=== PATIENT | female | born 1940 | race Hispanic/Latino ===

== ENCOUNTER 2017-06-11 14:41 | Emergency (ER) | payer MEDICARE, OTHER ==
[2017-06-11 14:41] VITALS: BMI 22.3
[2017-06-11 15:10] VITALS: RESP 19; TEMP 97.4
--- NOTE | 2017-06-11 15:20 | ED PDOC ---
Arrival/HPI - General Chief Complaint: Fever Time Seen by Provider: 06/11/17 14:42 Historian: Patient, Caregiver - History of Present Illness Narrative History of Present Illness (Text): 06/11/17 15:15 A 76 year old female was brought into the emergency department by EMS accompanied by home health aid complaining of a low grade fever since this morning. Home health aid reports a temperature of 100.2. She notes a worsening cough over the past 3 days. Patient denies any pain or discomfort at this time. Patient denies any nausea, vomiting, abdominal pain, urinary symptoms, chest pain, shortness of breath, lower extremity pain or swelling, headache, dizziness , vision changes or any other complaints. Time/Duration: Other (fever x morning, cough x 3 days ) Symptom Course: Worsening Context: Home Past Medical History - Provider Review Nursing Documentation Reviewed: Yes - Infectious Disease Hx of Infectious Diseases: None - Tetanus Immunization Tetanus Immunization: Unknown - Cardiac Hx Cardiac Disorders: Yes Hx Cardiac Arrhythmia: Yes (afib) Hx Congestive Heart Failure: Yes Hx Hypertension: Yes - Pulmonary Hx Respiratory Disorders: Yes Hx Pneumonia: Yes - Neurological Hx Neurological Disorder: Yes HX Cerebrovascular Accident: Yes (left side flaccid) - HEENT Hx HEENT Disorder: No - Renal Hx Renal Disorder: No - Endocrine/Metabolic Hx Endocrine Disorders: No - Hematological/Oncological Hx Blood Disorders: Yes Hx Anemia: Yes Hx Hepatitis C: Yes - Integumentary Hx Dermatological Disorder: No - Musculoskeletal/Rheumatological Hx Falls: Yes - Gastrointestinal Hx Gastrointestinal Disorders: Yes Hx Diverticulitis: Yes - Genitourinary/Gynecological Hx Genitourinary Disorders: Yes Hx Urinary Tract Infection: Yes (chronic sy) - Psychiatric Hx Psychophysiologic Disorder: No Hx Substance Use: No - Past Surgical History Past Surgical History: Non-Contributing - Surgical History Hx Appendectomy: Yes Hx Cardiac Catheterization: Yes Hx Coronary Stent: Yes Hx Orthopedic Surgery: Yes ("right hip hemiarthroplasty") - Anesthesia Hx Anesthesia Reactions: No Hx Malignant Hyperthermia: No - Suicidal Assessment Feels Threatened In Home Enviroment: No Family/Social History - Physician Review Nursing Documentation Reviewed: Yes Family/Social History: No Known Family HX Smoking Status: Never Smoked Hx Alcohol Use: No Hx Substance Use: No Hx Substance Use Treatment: No Allergies/Home Meds Allergies/Adverse Reactions: Allergies Penicillins Adverse Reaction (Verified 06/11/17 14:52) RASH Home Medications: Home Meds Medication Instructions Recorded Confirmed Gabapentin [Neurontin] 300 mg PO TID 04/18/16 06/11/17 traZODone [Desyrel] 50 mg PO HS 04/18/16 06/11/17 Zolpidem [Ambien] 10 mg PO HS PRN 06/19/16 06/11/17 amLODIPine [Norvasc] 10 mg PO DAILY 06/19/16 06/11/17 Cozaar 50 mg PO DAILY 06/11/17 06/11/17 Oxycodone HCl [Oxycodone HCl ER] 30 mg PO Q4 PRN 06/11/17 06/11/17 Vitamin B Complex [Balance B-100] 1 tab PO DAILY 06/11/17 06/11/17 Warfarin [Coumadin] 4 mg PO 1800 06/11/17 06/11/17 Review of Systems - Physician Review All systems were reviewed & negative as marked: Yes - Review of Systems Constitutional: Fevers Eyes: absent: Vision Changes Respiratory: Cough. absent: SOB Cardiovascular: absent: Chest Pain Gastrointestinal: absent: Abdominal Pain, Nausea, Vomiting Genitourinary Female: absent: Dysuria, Frequency, Hematuria, Urine Output Changes Musculoskeletal: absent: Other (LE pain or swelling) Neurological: absent: Headache, Dizziness Physical Exam Vital Signs Reviewed: Yes Vital Signs Temp Pulse Resp BP Pulse Ox 06/11/17 14:59 97.4 F L 72 19 179/80 H 97 Temperature: Afebrile Blood Pressure: Hypertensive Pulse: Regular Respiratory Rate: Normal Appearance: Positive for: Well-Appearing, Non-Toxic, Comfortable Pain Distress: None Mental Status: Positive for: other (Alert and oriented times person and place) - Systems Exam Head: Present: Atraumatic, Normocephalic Pupils: Present: PERRL Conjunctiva: Present: Normal Mouth: Present: Moist Mucous Membranes Pharnyx: No: ERYTHEMA, EXUDATE, TONSILS ENLARGED Neck: Present: Normal Range of Motion Respiratory/Chest: Present: Good Air Exchange, Rhonchi (Mild rhonchi in left base). No: Respiratory Distress, Accessory Muscle Use Cardiovascular: Present: Regular Rate and Rhythm, Normal S1, S2. No: Murmurs Abdomen: Present: Normal Bowel Sounds. No: Tenderness, Distention, Peritoneal Signs Back: Present: Normal Inspection Upper Extremity: Present: Normal Inspection, Other (Left sided weakness, normal to baseline ). No: Cyanosis, Edema Lower Extremity: Present: Edema (Edema in left foot), NORMAL PULSES, Other ( Left sided weakness, normal to baseline ). No: CALF TENDERNESS Neurological: Present: GCS=15, CN II-XII Intact, Speech Normal Skin: Present: Warm, Dry, Normal Color. No: Rashes Psychiatric: Present: Alert. No: Oriented x 3 (Oriented times person and place , not time) Medical Decision Making ED Course and Treatment: 06/11/17 15:15 Impression: A 76 year old female with 100.2 oral temp this morning and worsening cough over the past 3 days. Plan: -- Chest xray -- EKG -- Labs -- Blood and Urine culture -- Urinalysis -- Robitussin and Xopenex -- Reassess and disposition Progress Notes: EKG shows NSR at 77 BPM with normal intervals, LAD, no ST/T changes. Interpreted by me. 06/11/17 17:23 Patient is afebrile here without complaints. EKG is normal and labs are unremarkable as is CXR. Vitals are unremarkable as well. She is already on promethazine and albuterol at home. Will d/c on levaquin po for bronchitis and several days of prednisone. Discussed with Dr. Forte, who agreed with discharge and said he will follow her at home, especially the INR, given the possible interaction. 06/11/17 17:40 Discharge medications transmitted to pharmacy via computer. - Lab Interpretations Lab Results: 06/11/17 15:20 06/11/17 15:20 Lab Results 06/11/17 15:20: Sodium 144, Chloride 106, Potassium 3.6, Carbon Dioxide 26, Anion Gap 16, BUN 15, Creatinine 0.7, Est GFR ( Amer) > 60, Est GFR (Non- Af Amer) > 60, Random Glucose 121 H, Calcium 8.6, Phosphorus 3.0, Magnesium 1.7 , Total Bilirubin 0.7, AST 56 H, ALT 53, Alkaline Phosphatase 81, Lactate Dehydrogenase 481, Total Creatine Kinase 29 L, Troponin I 0.02 D, Total Protein 7.0, Albumin 3.8, Globulin 3.3, Albumin/Globulin Ratio 1.2, Lipase 110 06/11/17 15:20: pO2 93 H, VBG pH 7.35, VBG pCO2 53.0, VBG HCO3 29.3 H, VBG Total CO2 30.9 H, VBG O2 Sat (Calc) 98.2 H, VBG Base Excess 2.5 H, VBG Potassium 3.6, Sodium 143.0, Chloride 108.0 H, Glucose 123 H, Lactate 1.8, FiO2 21.0, Venous Blood Potassium 3.6 06/11/17 15:20: PT 23.6 H, INR 2.19 H, APTT 33.9 H 06/11/17 15:20: WBC 4.4 L D, RBC 3.82, Hgb 11.4 L, Hct 34.9 L, MCV 91.4, MCH 29.8, MCHC 32.7, RDW 13.4, Plt Count 66 L, MPV 8.9, Gran % 70.6 H, Lymph % (Auto ) 19.9 L, [place] % (Auto) 8.6 H, Eos % (Auto) 0.7 L, Baso % (Auto) 0.2, Gran # 3.12, Lymph # 0.9 L, [place] # 0.4, Eos # 0.0, Baso # 0.01 I have reviewed the lab results: Yes - RAD Interpretation Radiology Orders: 06/11/17 15:16 CHEST ONE VIEW [RAD] Stat - Medication Orders Current Medication Orders: Levofloxacin/Dextrose (Levaquin 500mg) 500 mg in 100 mls @ 100 mls/hr IVPB STAT STA Stop: 06/11/17 18:05 Discontinued Medications Guaifenesin (Robitussin) 400 mg PO ONCE STA Stop: 06/11/17 15:18 Last Admin: 06/11/17 15:50 Dose: 400 mg Levalbuterol HCl (Xopenex) 1.25 mg IH STAT STA Stop: 06/11/17 15:18 Last Admin: 06/11/17 15:51 Dose: 1.25 mg - Scribe Statement The provider has reviewed the documentation as recorded by the Scribe Disposition/Present on Arrival - Present on Arrival Any Indicators Present on Arrival: Yes History of DVT/PE: Yes History of Uncontrolled Diabetes: No Urinary Catheter: Yes History of Decub. Ulcer: No History Surgical Site Infection Following: None - Disposition Have Diagnosis and Disposition been Completed?: Yes Diagnosis: Bronchitis Disposition: HOME/ ROUTINE Disposition Time: 17:30 Patient Plan: Discharge Patient Problems: Current Active Problems Problem Status Onset Bronchitis Acute Condition: GOOD Additional Instructions: Continue promethazine (or use Robitussin instead) as well as nebulizer with albuterol. Take the prednisone and antibiotics as prescribed. Dr. Forte will follow up at home. Return to the emergency department if any new concerning symptoms. Prescriptions: Levofloxacin [Levaquin] 1 tab PO DAILY #10 tablet predniSONE [Prednisone] 2 tab PO DAILY #8 tab Referrals: Albin Forte MD [Primary Care Provider] - Follow up with primary Forms: [employer] (Setswana)
[2017-06-11] MEDS: guaiFENesin 200 mg/10 ml Syrup UD PO STA (15:50)
[2017-06-11 15:51] LABS: VENOUS BLOOD GAS BASE EXCESS 2.5 mmol/L (0.0-2.0); VENOUS BLOOD PH 7.35 (7.32-7.43)
[2017-06-11] MEDS: Levalbuterol 1.25 MG/3 ML Inhal Soln UD IH STA (15:51)
[2017-06-11 15:53] LABS: BASO # 0.01 K/mm3 (0.0-2.0); BASO % 0.2 % (0.0-3.0); EOS % 0.7 % (1.5-5.0); GRAN # 3.12 (1.4-6.5); GRAN % 70.6 % (50.0-68.0); HEMATOCRIT 34.9 % (36.0-48.0); LYMPH # 0.9 (1.2-3.4); LYMPH % 19.9 % (22.0-35.0); MEAN CELL VOLUME 91.4 fl (80.0-105.0); MEAN CORPUSCULAR HEMOGLOBIN 29.8 pg (25.0-35.0); MEAN CORPUSCULAR HGB CONC 32.7 g/dl (31.0-37.0); MEAN PLATELET VOLUME 8.9 fl (7.0-11.0); MONO # 0.4 (0.1-0.6); MONO % 8.6 % (1.0-6.0); RED CELL DISTRIBUTION WIDTH 13.4 % (11.5-14.5); WHITE BLOOD COUNT 4.4 10^3/ul (4.5-11.0)
[2017-06-11 16:00] LABS: ALB/GLOB RATIO 1.2 (1.1-1.8); ALKALINE PHOSPHATASE 81 U/L (38-133); ALT/SGPT 53 U/L (7-56); AST/SGOT 56 U/L (15-39); BILIRUBIN,TOTAL 0.7 mg/dL (0.2-1.3); BLOOD UREA NITROGEN 15 mg/dL (7-21); CALCIUM 8.6 mg/dL (8.4-10.5); CARBON DIOXIDE 26 mmol/L (21-33); CHLORIDE 106 mmol/L (98-107); GFR AFRICAN-AMERICAN > 60; GLUCOSE,RANDOM 121 mg/dL (70-110); LIPASE 110 U/L (23-300); MAGNESIUM 1.7 mg/dL (1.7-2.2); POTASSIUM 3.6 mmol/L (3.6-5.0); SODIUM 144 mmol/L (132-148)
[2017-06-11 16:03] LABS: INR 2.19 (0.93-1.08); PARTIAL THROMBOPLASTIN TIME 33.9 Seconds (23.7-30.8)
[2017-06-11 16:11] LABS: TROPONIN I 0.02 ng/mL
[2017-06-11 17:29] LABS: URINE BILIRUBIN NEGATIVE (NEGATIVE); URINE BLOOD TRACE-LYSED (NEGATIVE); URINE GLUCOSE (UA) NEGATIVE (NEGATIVE); URINE KETONE NEGATIVE (NEGATIVE); URINE LEUKOCYTE ESTERASE MODERATE Leu/uL (NEGATIVE); URINE PROTEIN TRACE mg/dL (<30 mg/dL); URINE UROBILINOGEN 0.2 E.U./dL (<1 E.U./dL)
[2017-06-11 17:38] LABS: URINE APPEARANCE CLEAR (CLEAR); URINE COLOR YELLOW (YELLOW)
[2017-06-11 17:48] LABS: URINE BACTERIA MOD (NEG)
[2017-06-11 17:49] LABS: URINE AMORPHOUS SEDIMENT SMALL
[2017-06-11] MEDS: levoFLOXacin 500 mg in D5W 500 MG/100 ML BAG IVPB STA (17:57)
[2017-06-11 18:58] VITALS: BP 193/103
[2017-06-11 18:59] VITALS: PULSE 76; O2SAT 95
--- NOTE | 2017-06-12 08:30 | RAD ---
PROCEDURE: CHEST RADIOGRAPH, 1 VIEW HISTORY: cough COMPARISON: 09/10/2016 FINDINGS: LUNGS: Clear. PLEURA: No pneumothorax or pleural fluid seen. CARDIOVASCULAR: Aortic stent unchanged. Bilateral calcified breast augmentation prostheses. OSSEOUS STRUCTURES: No significant abnormalities. VISUALIZED UPPER ABDOMEN: Normal. OTHER FINDINGS: None. IMPRESSION: No active disease.
--- NOTE | 2017-06-12 09:48 | CARD ---
APPROVED REPORT EKG Measurement Heart [id number] <Conclusion> Normal sinus rhythm Normal ECG
== END 2017-06-11 18:58 | disposition home or self-care (01) ==
LOC: ED 14:41
DX: J40 Bronchitis, not specified as acute or chronic (principal); I11.0 Hypertensive heart disease with heart failure; I50.9 Heart failure, unspecified; I48.91 Unspecified atrial fibrillation; D64.9 Anemia, unspecified
CPT/HCPCS: 71010; 80053; 81001; 82550; 82803; 83615; 83690; 83735; 84100; 84484; 85025; 85610; 85730; 87040; 87086; 93005; 96365; 96375; 99284; J2930

== ENCOUNTER 2017-09-28 21:04 | Inpatient (IN) | payer MEDICARE, OTHER ==
[2017-09-28 21:18] VITALS: BMI 22.8
--- NOTE | 2017-09-28 22:07 | ED PDOC ---
Arrival/HPI - General Chief Complaint: Female Genitourinary Time Seen by Provider: 09/28/17 21:06 Historian: Patient, Other (daughter) - History of Present Illness Narrative History of Present Illness (Text): 09/28/17 22:06 A 76 year old female, whose past medical history includes CVA, atrial fibrillation, seizure disorder, aortic aneurysm s/p stent, CHF, hypertension, anemia and COPD, presents to the emergency department for evaluation of fever that started today, associated with some vomiting and diarrhea according to daughter. Patient also complaining of vague abdominal discomfort and bloating. Patient denies any chest pain, shortness of breath or any other complaints at this time. Symptom Onset: Sudden Symptom Course: Unchanged Activities at Onset: Rest Context: Home Associated Symptoms (Text): diarrhea, vomiting, abdominal discomfort and bloating Past Medical History - Provider Review Nursing Documentation Reviewed: Yes - Infectious Disease Hx of Infectious Diseases: None - Tetanus Immunization Tetanus Immunization: Unknown - Cardiac Hx Cardiac Disorders: Yes Hx Cardiac Arrhythmia: Yes (afib) Hx Congestive Heart Failure: Yes Hx Hypertension: Yes - Pulmonary Hx Respiratory Disorders: Yes Hx Pneumonia: Yes - Neurological Hx Neurological Disorder: Yes HX Cerebrovascular Accident: Yes (left side flaccid) Hx Paralysis: Yes (L sided) - HEENT Hx HEENT Disorder: No - Renal Hx Renal Disorder: No - Endocrine/Metabolic Hx Endocrine Disorders: No - Hematological/Oncological Hx Blood Disorders: Yes Hx Anemia: Yes Hx Hepatitis C: Yes - Integumentary Hx Dermatological Disorder: No - Musculoskeletal/Rheumatological Hx Musculoskeletal Disorders: Yes Hx Falls: Yes - Gastrointestinal Hx Gastrointestinal Disorders: Yes Hx Diverticulitis: Yes - Genitourinary/Gynecological Hx Genitourinary Disorders: Yes Hx Urinary Tract Infection: Yes (chronic sy) - Psychiatric Hx Psychophysiologic Disorder: No Hx Substance Use: No - Past Surgical History Past Surgical History: Non-Contributing - Surgical History Hx Appendectomy: Yes Hx Cardiac Catheterization: Yes Hx Coronary Stent: Yes Hx Orthopedic Surgery: Yes ("right hip hemiarthroplasty") - Anesthesia Hx Anesthesia: Yes Hx Anesthesia Reactions: No Hx Malignant Hyperthermia: No - Suicidal Assessment Feels Threatened In Home Enviroment: No Family/Social History - Physician Review Nursing Documentation Reviewed: Yes Family/Social History: No Known Family HX Smoking Status: Never Smoked Hx Alcohol Use: No Hx Substance Use: No Hx Substance Use Treatment: No Allergies/Home Meds Allergies/Adverse Reactions: Allergies Penicillins Adverse Reaction (Intermediate, Verified 09/28/17 21:18) RASH Home Medications: Home Meds Medication Instructions Recorded Confirmed Gabapentin [Neurontin] 300 mg PO TID 04/18/16 09/28/17 traZODone [Desyrel] 50 mg PO HS 04/18/16 09/28/17 Zolpidem [Ambien] 10 mg PO HS PRN 06/19/16 09/28/17 Oxycodone HCl [Oxycodone HCl ER] 15 mg PO Q4 PRN 06/11/17 09/28/17 Vitamin B Complex [Balance B-100] 1 tab PO DAILY 06/11/17 09/28/17 Warfarin [Coumadin] 4 mg PO 1800 06/11/17 09/28/17 Losartan [Cozaar] 50 mg PO BID 09/28/17 09/28/17 Review of Systems - Physician Review All systems were reviewed & negative as marked: Yes - Review of Systems Constitutional: Fevers Respiratory: absent: SOB Cardiovascular: absent: Chest Pain Gastrointestinal: Diarrhea, Vomiting, Other (abdominal discomfort and bloating) Physical Exam Vital Signs Reviewed: Yes Vital Signs Temp Pulse Resp BP Pulse Ox 09/29/17 01:52 98.4 F 62 17 116/53 L 96 09/28/17 23:06 98.4 F 09/28/17 23:01 68 16 116/53 L 98 09/28/17 22:05 101.5 F H 09/28/17 21:17 101.1 F H 73 14 116/53 L 90 L Temperature: Febrile Blood Pressure: Hypotensive Pulse: Regular Respiratory Rate: Normal Appearance: Positive for: Well-Appearing, Non-Toxic, Comfortable Pain Distress: None Mental Status: Positive for: Alert and Oriented X 3 - Systems Exam Head: Present: Atraumatic, Normocephalic Pupils: Present: PERRL Extroacular Muscles: Present: EOMI Conjunctiva: Present: Normal Mouth: Present: Moist Mucous Membranes Neck: Present: Normal Range of Motion Respiratory/Chest: Present: Clear to Auscultation, Good Air Exchange. No: Respiratory Distress, Accessory Muscle Use Cardiovascular: Present: Normal S1, S2, Irregular Rhythm. No: Murmurs Abdomen: Present: Normal Bowel Sounds. No: Tenderness, Distention, Peritoneal Signs Back: Present: Normal Inspection Upper Extremity: Present: Normal Inspection. No: Cyanosis, Edema Lower Extremity: Present: Normal Inspection. No: Edema, Cyanosis Neurological: Present: GCS=15, CN II-XII Intact, Speech Normal Skin: Present: Warm, Dry, Normal Color. No: Rashes Psychiatric: Present: Alert, Oriented x 3, Normal Insight, Normal Concentration Medical Decision Making ED Course and Treatment: 09/28/17 22:05 Impression: A 76 year old female with fever, vomiting and diarrhea. Plan: -- EKG -- chest xray -- labs -- Urinalysis -- Tylenol, Azactam, Flagyl, IV fluids, K-Dur -- Reassess and disposition Prior Visits: Notes and results from previous visits were reviewed. Patient was last seen in the emergency department on 06/11/17 for evaluation of low grade fever and cough. Progress Notes: 09/28/17 22:20 Chest xray: No acute process, as read by me. 09/28/17 23:54 EKG: Ordered, reviewed, and independently interpreted the EKG. Rate : 64 BPM Rhythm : NSR Interpretation : 1st degree AV block, occasional PVC, left axis deviation 09/29/17 00:[address] Forte, who accepts patient to his service, Dr. Burgos on consult. CT Abdomen and Pelvis With Intravenous Contrast IMPRESSION: 1. There is left hip joint effusion with superior lateral left hip prosthesis dislocation. 2. Bilateral upper quadrant ascites and moderate amount of intraperitoneal free fluid in the pelvis with interval progression when compared to prior examination. 3. Nodular cirrhotic liver. Splenomegaly with splenic varices representing portal hypertension. 4. Partially distended gallbladder the gallbladder wall prominence and giovany- cholecystic fluid. 5.Small left and possible trace right pleural effusions. Left more than right lower lobe consolidation representing atelectasis or pneumonia. There is mild interval impression when compared to prior examination. Overall interval progression of the findings when compared to prior examination. Correlation with internal medicine evaluation and further workup or followup as recommended by patient's clinical data. Dictated and Authenticated by: Nehemiah Espinoza MD 09/29/2017 1:04 AM Eastern Time ([place] & [place]) 09/29/17 01:[address] Esparza's service, regarding coincidental finding of left hip dislocation from CT abdomen and pelvis, awaiting callback. 09/29/17 03:03 Discussed coincidental finding with Dr. Esparza, who states will see patient. - Lab Interpretations Lab Results: 09/28/17 22:00 09/28/17 22:00 Lab Results 09/28/17 22:00: Sodium 139, Chloride 106, Potassium 3.2 L, Carbon Dioxide 24, Anion Gap 12, BUN 18, Creatinine 0.9, Est GFR ( Amer) > 60, Est GFR (Non- Af Amer) > 60, Random Glucose 106, Calcium 7.7 L, Phosphorus 2.6, Magnesium 1.5 L, Total Bilirubin 0.9, AST 42 H, ALT 34, Alkaline Phosphatase 53, Lactate Dehydrogenase 526, Total Creatine Kinase 58, Troponin I 0.04 D, Total Protein 5.4 L, Albumin 2.7 L, Globulin 2.7, Albumin/Globulin Ratio 1.0 L 09/28/17 22:00: pO2 99 H, VBG pH 7.35, VBG pCO2 44.0, VBG HCO3 24.3, VBG Total CO2 25.7, VBG O2 Sat (Calc) 98.4 H, VBG Base Excess -1.5 L, VBG Potassium 3.1 L , Sodium 138.0, Chloride 108.0 H, Glucose 110 H, Lactate 2.9 H, FiO2 21.0, Venous Blood Potassium 3.1 L 09/28/17 22:00: Urine Color Yellow, Urine Appearance Clear, Urine pH 6.0, Ur Specific [place] 1.025, Urine Protein Trace H, Urine Glucose (UA) Negative, Urine Ketones Negative, Urine Blood Negative, Urine Nitrate Positive H, Urine Bilirubin Negative, Urine Urobilinogen 0.2, Ur Leukocyte Esterase Moderate H, Urine RBC 2 - 5, Urine WBC 10 - 15, Ur Epithelial Cells 4 - 5, Urine Bacteria Large 09/28/17 22:00: PT 49.1 H, INR 4.37 H*, APTT 49.7 H 09/28/17 22:00: WBC 5.4 D, RBC 3.44 L, Hgb 9.8 L, Hct 29.8 L, MCV 86.6 D, MCH 28.5, MCHC 32.9, RDW 15.0 H, Plt Count 62 L, MPV 10.8, Gran % 78.0 H, Lymph % ( Auto) 16.2 L, [place] % (Auto) 5.0, Eos % (Auto) 0.6 L, Baso % (Auto) 0.2, Gran # 4.20, Lymph # 0.9 L, [place] # 0.3, Eos # 0.0, Baso # 0.01 I have reviewed the lab results: Yes - RAD Interpretation Radiology Orders: 09/28/17 21:20 CHEST PORTABLE [RAD] Stat 09/28/17 23:23 ABD & PELVIS IV CONTRAST ONLY [CT] Stat - EKG Interpretation Interpreted by ED Physician: Yes Type: 12 lead EKG - Medication Orders Current Medication Orders: Sodium Chloride (Sodium Chloride 0.9%) 1,000 mls @ 100 mls/hr IV .Q10H JEAN CLAUDE Potassium Chloride (Potassium Chloride 20 Meq/100 Ml) 20 meq in 100 mls @ 50 mls/hr IVPB Q2H JEAN CLAUDE Stop: 09/29/17 08:44 Last Admin: 09/29/17 05:54 Dose: 50 mls/hr eMAR Start Stop Document 09/29/17 05:54 [place] (Rec: 09/29/17 05:54 [place] [id number] Intravenous Solution Start Date 09/29/17 Start Time 05:54 End Date 09/29/17 End time 08:00 Total Infusion Time 126 Discontinued Medications Acetaminophen (Tylenol 650 Mg Supp) 650 mg RC STAT STA Stop: 09/28/17 21:54 Last Admin: 09/28/17 22:05 Dose: 650 mg MAR Pain/Vitals Document 09/28/17 22:05 RD (Rec: 09/28/17 22:31 RD [id number]) Pain Reassessment Is This A Pain ReAssessment? No Sleep Is patient sleeping during reassessment? No Presence of Pain Presence of Pain No Vitals Temperature (97.6 F-99.6 F) 101.5 F Temperature Source Rectal Sodium Chloride (Sodium Chloride 0.9%) 500 mls @ 500 mls/hr IV .Q1H STA Stop: 09/29/17 00:22 Last Admin: 09/28/17 23:41 Dose: 500 mls/hr eMAR Start Stop Document 09/28/17 23:41 IT (Rec: 09/28/17 23:41 IT [email or web address] Intravenous Solution Start Date 09/28/17 Start Time 23:41 Aztreonam (Azactam 1 Gm) 100 mls @ 100 mls/hr IVPB STAT STA PRN Reason: Protocol Stop: 09/29/17 00:30 Last Admin: 09/29/17 01:08 Dose: 100 mls/hr eMAR Start Stop Document 09/29/17 01:08 IT (Rec: 09/29/17 01:[address] [id number] Intravenous Solution Start Date 09/29/17 Start Time 01:08 End Date 09/29/17 End time 02:08 Total Infusion Time 60 Metronidazole (Flagyl) 500 mg in 100 mls @ 100 mls/hr IVPB STAT STA PRN Reason: Protocol Stop: 09/29/17 00:30 Last Admin: 09/28/17 23:42 Dose: 100 mls/hr eMAR Start Stop Document 09/28/17 23:42 IT (Rec: 09/28/17 23:42 IT [id number]) Intravenous Solution Start Date 09/28/17 Start Time 23:42 End Date 09/29/17 End time 00:42 Total Infusion Time 60 Potassium Chloride (K-Dur 20 Meq Er Tab) 20 meq PO STAT STA Stop: 09/28/17 23:20 - Scribe Statement The provider has reviewed the documentation as recorded by the Evonne Carroll Provider Scribe Attestation: All medical record entries made by the Scribe were at my direction and personally dictated by me. I have reviewed the chart and agree that the record accurately reflects my personal performance of the history, physical exam, medical decision making, and the department course for this patient. I have also personally directed, reviewed, and agree with the discharge instructions and disposition. Disposition/Present on Arrival - Present on Arrival Any Indicators Present on Arrival: No History of DVT/PE: Yes History of Uncontrolled Diabetes: No Urinary Catheter: Yes History of Decub. Ulcer: No History Surgical Site Infection Following: None - Disposition Have Diagnosis and Disposition been Completed?: Yes Diagnosis: Fever, Gastroenteritis, UTI (urinary tract infection), Cholecystitis, Hip dislocation, left Disposition: HOSPITALIZED Disposition Time: 00:28 Patient Plan: Admission Patient Problems: Current Active Problems Problem Status Onset Cholecystitis Acute Fever Acute Gastroenteritis Acute Hip dislocation, left Acute UTI (urinary tract infection) Acute Condition: GOOD
[2017-09-28 22:39] LABS: BASO # 0.01 K/mm3 (0.0-2.0); BASO % 0.2 % (0.0-3.0); EOS % 0.6 % (1.5-5.0); GRAN # 4.2 (1.4-6.5); HEMATOCRIT 29.8 % (36.0-48.0); LYMPH # 0.9 (1.2-3.4); LYMPH % 16.2 % (22.0-35.0); MEAN CELL VOLUME 86.6 fl (80.0-105.0); MEAN CORPUSCULAR HEMOGLOBIN 28.5 pg (25.0-35.0); MEAN CORPUSCULAR HGB CONC 32.9 g/dl (31.0-37.0); MEAN PLATELET VOLUME 10.8 fl (7.0-11.0); MONO # 0.3 (0.1-0.6); WHITE BLOOD COUNT 5.4 10^3/ul (4.5-11.0)
[2017-09-28 22:41] LABS: URINE BILIRUBIN NEGATIVE (NEGATIVE); URINE BLOOD NEGATIVE (NEGATIVE); URINE GLUCOSE (UA) NEGATIVE (NEGATIVE); URINE KETONE NEGATIVE (NEGATIVE); URINE LEUKOCYTE ESTERASE MODERATE Leu/uL (NEGATIVE); URINE PROTEIN TRACE mg/dL (<30 mg/dL); URINE UROBILINOGEN 0.2 E.U./dL (<1 E.U./dL)
[2017-09-28 22:42] LABS: ALKALINE PHOSPHATASE 53 U/L (38-126); ALT/SGPT 34 U/L (7-56); AST/SGOT 42 U/L (14-36); BILIRUBIN,TOTAL 0.9 mg/dL (0.2-1.3); BLOOD UREA NITROGEN 18 mg/dL (7-21); CALCIUM 7.7 mg/dL (8.4-10.5); CARBON DIOXIDE 24 mmol/L (21-33); CHLORIDE 106 mmol/L (98-107); GFR AFRICAN-AMERICAN > 60; GLUCOSE,RANDOM 106 mg/dL (70-110); MAGNESIUM 1.5 mg/dL (1.7-2.2); PHOSPHOROUS 2.6 mg/dL (2.5-4.5); POTASSIUM 3.2 mmol/L (3.6-5.0); SODIUM 139 mmol/L (132-148); TOTAL PROTEIN 5.4 g/dL (5.8-8.3); URINE APPEARANCE CLEAR (CLEAR); URINE COLOR YELLOW (YELLOW)
[2017-09-28 22:51] LABS: VENOUS BLOOD GAS BASE EXCESS -1.5 mmol/L (0.0-2.0); VENOUS BLOOD PH 7.35 (7.32-7.43)
[2017-09-28 22:52] LABS: INR 4.37 (0.93-1.08); PARTIAL THROMBOPLASTIN TIME 49.7 Seconds (25.1-36.5)
[2017-09-28 22:53] LABS: TROPONIN I 0.04 ng/mL
[2017-09-28 23:03] LABS: URINE BACTERIA LARGE (NEG)
[2017-09-28] MEDS ORDERED: Potassium Chloride 20 mEq ER Tab PO STA (23:19)
[2017-09-28] MEDS ORDERED: Sodium Chloride 0.9% 500 ML IV STA (23:23)
[2017-09-28] MEDS ORDERED: Sodium Chloride 0.9% 1,000 ML IV SCH (23:30)
[2017-09-28] MEDS ORDERED: Aztreonam 1 Gm in NS 100mL 100 ML IVPB STA (23:31)
[2017-09-28] MEDS ORDERED: metroNIDAZOLE IV 500 mg/100 ml 500 MG/100 ML BAG IVPB STA (23:31)
[2017-09-28] MEDS ORDERED: Iohexol 350 MG/100 ML VIAL ONE (23:53)
--- NOTE | 2017-09-29 01:04 | CT ---
EXAM: CT Abdomen and Pelvis With Intravenous Contrast CLINICAL HISTORY: 76 years old, female; Pain; Abdominal pain; Generalized; Prior surgery; Surgery date: 6+ months; Surgery type: HX appendectomy, HX rt hip surgery TECHNIQUE: Axial computed tomography images of the abdomen and pelvis with intravenous contrast. All CT scans at this facility use one or more dose reduction techniques, viz.: automated exposure control; ma/kV adjustment per patient size (including targeted exams where dose is matched to indication; i.e. head); or iterative reconstruction technique. 786 images are submitted. 2 sets of sagittal and coronal reconstruction images are submitted. Axial images are submitted in soft tissue and lung windows. Coronal and sagittal reformatted images were created and reviewed. CONTRAST: 100 mL of OMNI 350 administered intravenously. COMPARISON: CT - ABD PELVIS W/O PO OR IV CONT 2016-08-21 14:33 FINDINGS: Lower thorax: Small left and possible trace right pleural effusions. Left more than right lower lobe consolidation representing atelectasis or pneumonia. There is mild interval impression when compared to prior examination. Bilateral breast implants with capsular calcification. There is distal descending thoracic aortic aneurysm measuring 4.2 cm there is endovascular stent graft in the distal descending thoracic aorta. Cardiomegaly. Small pericardial effusion. Small hiatal hernia with wall thickening of the hiatal hernia representing sequela of reflux. ABDOMEN: Liver: Enlarged nodular cirrhotic liver. Gallbladder and bile ducts: Partially distended gallbladder the gallbladder wall prominence and giovany-cholecystic fluid. Pancreas: Unremarkable. No mass. No ductal dilation. Spleen: Splenomegaly measuring 17 cm. There is perigastric/splenic varices seen on image 43 series 2. Adrenals: Unremarkable. No mass. Kidneys and ureters: There are multiple renal hypodensities that cannot be further characterized on the current examination. No hydronephrosis. Stomach and bowel: Unremarkable. No obstruction. No mucosal thickening. Appendix: Appendectomy. PELVIS: Bladder: The bladder is decompressed by a Bush catheterThere is a small amount of intraluminal air consistent with instrumentation. Partially decompressed bladder with bladder wall thickening. Correlation with urinalysis is recommended only if clinical cystitis is suspected. Reproductive: Uterus is seen. ABDOMEN and PELVIS: Intraperitoneal space: Bilateral upper quadrant ascites and moderate amount of intraperitoneal free fluid in the pelvis with interval progression when compared to prior examination. No free air. Bones/joints: Left hip prosthesis.There is extensive artifact from hip prosthesis compromising the pelvic organs details.There is left hip joint effusion with superior lateral left hip prosthesis dislocation. Soft tissues: Unremarkable. Vasculature: There is infrarenal abdominal aortic aneurysm measuring 3.6 cm. Lymph nodes: Unremarkable. No enlarged lymph nodes. IMPRESSION: 1. There is left hip joint effusion with superior lateral left hip prosthesis dislocation. 2. Bilateral upper quadrant ascites and moderate amount of intraperitoneal free fluid in the pelvis with interval progression when compared to prior examination. 3. Nodular cirrhotic liver. Splenomegaly with splenic varices representing portal hypertension. 4. Partially distended gallbladder the gallbladder wall prominence and giovany-cholecystic fluid. 5.Small left and possible trace right pleural effusions. Left more than right lower lobe consolidation representing atelectasis or pneumonia. There is mild interval impression when compared to prior examination. Overall interval progression of the findings when compared to prior examination. Correlation with internal medicine evaluation and further workup or followup as recommended by patient's clinical data.
[2017-09-29 02:00] LABS: VENOUS BLOOD GAS BASE EXCESS -1.5 mmol/L (0.0-2.0); VENOUS BLOOD PH 7.33 (7.32-7.43)
[2017-09-29] MEDS ORDERED: Sodium Chloride 0.9% 1,000 ML IV SCH (09:41)
--- NOTE | 2017-09-29 10:37 | RAD ---
HISTORY: Sepsis Patient COMPARISON: Chest x-ray performed 06/11/17 TECHNIQUE: Chest, one view. FINDINGS: LUNGS: Biapical pleural thickening. Opacity at the left lung base may reflect consolidation and/or effusion. No definite pneumothorax. CARDIOVASCULAR: Cardiomegaly. Aortic stent. Atherosclerotic calcifications. OSSEOUS STRUCTURES: Osseous demineralization. Degenerative changes. VISUALIZED UPPER ABDOMEN: Unremarkable. OTHER FINDINGS: Calcified breast prostheses. IMPRESSION: Opacity at the left lung base may reflect consolidation and/or effusion. Biapical pleural thickening. Cardiomegaly. Aortic stent. Atherosclerotic calcifications.
[2017-09-29 10:39] LABS: EOS # 0.1 (0.0-0.7); EOS % 1.9 % (1.5-5.0); GRAN # 2.14 (1.4-6.5); GRAN % 67.3 % (50.0-68.0); HEMATOCRIT 28.7 % (36.0-48.0); LYMPH # 0.7 (1.2-3.4); LYMPH % 21.7 % (22.0-35.0); MEAN CELL VOLUME 87.5 fl (80.0-105.0); MEAN CORPUSCULAR HGB CONC 32.1 g/dl (31.0-37.0); MEAN PLATELET VOLUME 10.3 fl (7.0-11.0); MONO # 0.3 (0.1-0.6); MONO % 9.1 % (1.0-6.0); RED CELL DISTRIBUTION WIDTH 15.2 % (11.5-14.5); WHITE BLOOD COUNT 3.2 10^3/ul (4.5-11.0)
[2017-09-29 10:50] LABS: ALB/GLOB RATIO 0.9 (1.1-1.8); ALKALINE PHOSPHATASE 47 U/L (38-126); ALT/SGPT 38 U/L (7-56); AST/SGOT 32 U/L (14-36); BILIRUBIN,TOTAL 0.6 mg/dL (0.2-1.3); BLOOD UREA NITROGEN 19 mg/dL (7-21); CALCIUM 7.2 mg/dL (8.4-10.5); CARBON DIOXIDE 24 mmol/L (21-33); CHLORIDE 108 mmol/L (98-107); GFR AFRICAN-AMERICAN > 60; GLUCOSE,RANDOM 83 mg/dL (70-110); MAGNESIUM 1.5 mg/dL (1.7-2.2); PHOSPHOROUS 3.3 mg/dL (2.5-4.5); POTASSIUM 3.6 mmol/L (3.6-5.0); SODIUM 139 mmol/L (132-148); TOTAL PROTEIN 4.9 g/dL (5.8-8.3)
[2017-09-29 11:05] LABS: INR 4.27 (0.93-1.08)
--- NOTE | 2017-09-29 13:01 | RAD ---
PROCEDURE: Radiographs of the pelvis. HISTORY: prosthesis dislocation left COMPARISON: 05/06/2015 FINDINGS: BONES: Pelvic Bones: There is no pelvic fracture identified. Hips: The patient is status post left hip arthroplasty. There is posterior/lateral displacement of the prosthesis including the acetabular cup, relative to the levelock acetabulum. There is no definite osseous fracture identified. The prosthesis appears intact. There is no evidence of loosening of the femoral component. JOINTS: Sacroiliac Joints: Unremarkable. Pubic Symphysis: Unremarkable. OTHER FINDINGS: Bilateral iliac stent. Bush catheter balloon within decompressed bladder. IMPRESSION: Subluxation/ dislocation, post oral lateral, left hip prosthesis with acetabular cup component. No definite osseous fracture.
[2017-09-29] MEDS: Albuterol-Ipratrop 3 mg / 0.5 (3 ml) UD IH SCH ×3 (13:42→20:03)
[2017-09-29] MEDS ORDERED: Aztreonam 1 Gm in NS 100mL 100 ML IVPB SCH (14:00)
--- NOTE | 2017-09-29 16:52 | CARD ---
APPROVED REPORT EKG Measurement Heart [id number] <Conclusion> Sinus rhythm with 1st degree AV block with occasional premature ventricular complexes Left axis deviation Abnormal ECG
[2017-09-29] MEDS: Acetylcysteine 20% Inhal Soln (4ml) IH SCH (21:30)
[2017-09-29] MEDS: Meropenem IV 1 gm in NS 50 ML IVPB SCH (22:13)
[2017-09-30] MEDS: Albuterol-Ipratrop 3 mg / 0.5 (3 ml) UD IH SCH ×5 (00:46→20:00)
--- NOTE | 2017-09-30 04:28 | CON ---
DATE: 09/29/2017 REASON FOR CONSULT: Left hip dislocation. HISTORY OF PRESENT ILLNESS: This is a 76-year-old female who is nonambulatory who is admitted for fever, gastroenteritis, and urinary tract infection who on CAT scan of the abdomen and pelvis was noted to have dislocated left hip prosthesis. Patient underwent a left hip hemiarthroplasty about 3 to 4 years ago. According to the daughter, she has been nonambulatory for the last several years and requires max assistance and Juan lift for mobilization at home. The daughter also states that her left lower extremity is usually internally rotated and has been internally rotated for quite some time. History from the patient is somewhat limited but she is awake and alert. On examination of the left lower extremity, she has a healed incision on the posterior lateral aspect of the left proximal femur. No evidence of any cellulitis is appreciated. Her left hip is slightly flexed and is internally rotated. She does have some shortening of the left lower extremity compared to the right lower extremity. She does have some pain. She does react with passive range of motion of the left lower extremity. Her thigh and calf is otherwise soft and nontender. She has palpable distal pulses. X-ray of AP pelvis shows dislocated left hip bipolar prosthesis. There is no obvious evidence of any fracture. IMPRESSION: Left hip hemiarthroplasty and dislocation. PLAN: I had a lengthy discussion with the daughter and the patient. At this point, we talked about the treatment options including possible closed reduction as well as revision left hip surgery. Given that the patient is nonambulatory and has not been ambulatory for quite some time, she does not want any surgery for her. For now, she would prefer just pain management to keep her comfortable. I think this is reasonable. She also was recommended decubitus precautions. She will follow up as an outpatient. Adam Esparza MD
--- NOTE | 2017-09-30 04:45 | CON ---
DATE: 09/29/2017 REASON FOR ADMISSION: The patient is in bed, seen early this morning 572, bed 2. The patient with a fever x1 day. HISTORY OF PRESENT ILLNESS: This is an 76-year-old female known to me from previous admissions who has cerebrovascular accident, left-sided weakness, peripheral vascular disease, congestive heart failure, seizures, hypertension, anemia, history of decubitus ulcer, history of aortic aneurysm and status post stent placement, thrombocytopenia and hepatitis C. The patient had a history of E. Coli which was ESBL E. Coli and VRE in the urine culture. In 06/11/2017, the patient also had yeast in the urine. On multiple occasions blood cultures in the past have been negative, who is now admitted with fever of 101.5. Infectious disease consultation requested. The patient is a poor historian mild shortness of breath. No chest pain, no abdominal pain, diarrhea or constipation at this point. She did have abdominal discomfort earlier, past medical history significant for cerebrovascular accident, left-sided weakness, peripheral vascular reasons, seizures, congestive heart failure, hypertension, anemia, decubitus ulcer, aortic aneurysm status post stent placement, thrombocytopenia, ESBL E. Coli, hepatitis C, urinary tract infection and with a chronic Bush catheter. PAST SURGICAL HISTORY: Significant for left hip hemiarthroplasty and bilateral breast implants and appendectomy. ALLERGIES: THE PATIENT IS ALLERGIC TO PENICILLIN. QUESTIONABLE RASH, IT IS NOT DESCRIBED TYPE 1. MEDICATIONS: At home include the patient to have; Ambien, Coumadin, potassium, gabapentin and Lasix. PHYSICAL EXAMINATION GENERAL: The patient is in bed. VITAL SIGNS: Temperature of 98, T-max is 101.5, pulse of 73, blood pressure is 130/50 with respiratory rate of 18. HEENT: Unremarkable. NECK: Supple. LUNGS: Have decreased breath sounds. HEART: Normal S1 and S2. ABDOMEN: Examination is soft and nontender. No rebound or guarding. LABORATORY DATA: Reveals a white count of 3.2, hemoglobin of 9 and platelets of 52. The patient has 67% granulocytosis. Coagulation is noted. BUN of 19 and creatinine of 0.9. Urinalysis reveals 10 to 15 WBCs, large bacteria. Cultures are as stated and the patient had a CT scan of the abdomen which has also shown left healthcare-associated pneumonia, nodular cirrhotic liver, splenomegaly and bilateral ascites. The patient had a chest x-ray which is reviewed. ASSESSMENT AND PLAN: This is a 76-year-old female with cerebrovascular accident, left-sided weakness, peripheral disease, congestive heart failure, seizure, hypertension, anemia, decubitus ulcer, aortic aneurysm, thrombocytopenia, extended-spectrum beta-lactamase Escherichia Coli urinary tract infections, hepatitis C, presenting with sepsis with urine as the source and left-sided healthcare-associated pneumonia. We will treat the patient with doxycycline and meropenem, pending blood culture results, urine culture results, sputum culture results and a procalcitonin. We will follow closely with you. Ricardo Burgos MD
[2017-09-30] MEDS: Meropenem IV 1 gm in NS 50 ML IVPB SCH ×3 (05:23→21:42)
[2017-09-30] MEDS: oxyCODONE 15 mg Immediate Release Tab PO PRN (05:24)
[2017-09-30 07:23] LABS: BLOOD UREA NITROGEN 18 mg/dL (7-21); CALCIUM 7.4 mg/dL (8.4-10.5); CARBON DIOXIDE 21 mmol/L (21-33); CHLORIDE 113 mmol/L (98-107); GFR AFRICAN-AMERICAN > 60; GLUCOSE,RANDOM 78 mg/dL (70-110); POTASSIUM 3.7 mmol/L (3.6-5.0); SODIUM 141 mmol/L (132-148)
[2017-09-30 08:54] LABS: MEAN CELL VOLUME 87.3 fl (80.0-105.0); MEAN CORPUSCULAR HEMOGLOBIN 28.6 pg (25.0-35.0); MEAN CORPUSCULAR HGB CONC 32.8 g/dl (31.0-37.0); RED CELL DISTRIBUTION WIDTH 15.7 % (11.5-14.5); WHITE BLOOD COUNT 4.6 10^3/ul (4.5-11.0)
[2017-09-30] MEDS ORDERED: Magnesium Sulfate 2 GM in Sodium Chloride 0.9% 100 ML IV ONE (09:16)
[2017-09-30] MEDS: Acetylcysteine 20% Inhal Soln (4ml) IH SCH ×3 (11:12→20:00)
[2017-09-30] MEDS: Potassium Chloride 10 mEq ER Tab PO SCH (11:17)
[2017-09-30] MEDS: Magnesium Oxide 400 mg Tab UD PO SCH ×2 (11:17→18:36)
--- NOTE | 2017-09-30 14:16 | HP ---
The patient was seen on 09/29/2017. REASON FOR ADMISSION: The patient's main complaint is fever of 102. HISTORY OF PRESENT ILLNESS: . The patient is bedridden. She has history of hypertension and stroke. She does have a history also of recurrent urinary tract infection, came into the hospital with fever of 102, feeling more weak, and visiting nursing told about the patient conditions and the patient was advised to come to the ER. She does have some cough. The patient's urine also seems a little bit cloudy. The patient was brought into the ER for further evaluation and treatment. PAST MEDICAL HISTORY: As I mentioned: 1. CVA with hemiplegia. 2. Bedridden due to generalized weakness. 3. with minimal redness on the sacral decubital area and no heel ulcers now. 4. She also had history of hypertension and thoracic and abdominal aortic aneurysm that has been looked in. 5. She has a history of carotid stenosis. 6. She had a history of high cholesterol. 7. Recurrent urinary tract infections. 8. COPD. 9. Thrombocytopenia. 10. Chronic hepatitis C. 11. Chronic insomnia. 12. Depression. 13. She also had a history of seizure disorder. She is getting Keppra for it. ALLERGIES: PENICILLIN. SOCIAL HISTORY: No smoking. No drinking. She lives with her daughter. Very supportive. Taking good care of her. Visiting nurse see her on a regular basis and she is getting Coumadin test on a regular basis at home. MEDICATIONS AT HOME: She takes Keppra 500 mg b.i.d., Ambien 10 mg p.o. daily, Coumadin 4 mg, potassium 10 mEq, Neurontin 300 mg t.i.d., Lasix 20 p.o. daily, Pepcid 20 mg p.o. daily, Colace 100 b.i.d., metoprolol 50 b.i.d., albuterol, oxycodone 15 mg every 4 hours, vitamin B complex, and trazodone 50 p.o. at bedtime. REVIEW OF SYSTEMS: As in present illness. PHYSICAL EXAMINATION: GENERAL: The patient is sitting in the bed comfortable. There is no distress. She only complained of leg pain at both lower extremities. VITAL SIGNS: On 09/29/2017, temperature 97.2, heart rate 60, blood pressure 158/62, respiratory rate 16, and saturating 95% on room air. When she came into the hospital also her early initial temperature was 101.5. HEAD AND NECK: There is no JVD. There is no tenderness. She will move her neck, but with decreased range of motion in all directions. CHEST: Clear. Few rhonchi in the upper airways. CARDIAC: First sound and second sound normal. ABDOMEN: Soft and nontender. EXTREMITIES: There is no edema. NEUROLOGIC: Right hemiplegia and right side weakness. LABORATORY DATA: Initial lab shows white count 5.4, hemoglobin 9.8, hematocrit 29.8, and platelets 62. PT 49.1. INR 4.37. PTT 49.7. Chemistry, sodium 139, potassium 3.2, chloride 106, bicarbonate 24, BUN 18, creatinine 0.9, calcium 7.7, phosphorus 2.6, magnesium is 1.5. Liver function testing is within normal range, except AST of 42. Her troponin is 0.04. The patient had CT of the abdomen and pelvis when she came in, which shows the following impression: 1. There is left hip joint effusion with severe lateral left hip prosthesis dislocated. 2. Bilateral upper quadrant ascites and moderate amount of enteroperitoneal free fluid in the pelvis with interval progressions when compared to prior to examination. Nodular chronic cirrhotic liver and splenomegaly with splenic varices representing portal hypertension, distended gallbladder wall, and pericholecystic fluid. 3. There is trace right pleural effusion, left more than the right. Left lower lobe consolidation representing atelectasis or pneumonia. There is mild interval impression when compared with prior examination. 4. The patient also had an electrocardiogram when she came in, which shows the following: She has sinuses and first-degree AV block with occasional premature ventricular complexes, left axis deviations. 5. Chest x-ray. I looked at the chest x-ray, which shows bilateral pleural thickening, opacity in the left lung base may represent consolidations and effusions. Also shows cardiomegaly, aortic stent, and atherosclerotic calcifications. IMPRESSION AND PLAN: This is a 76-year-old female with complex past medical history, bedridden, cerebrovascular accident, history of multiple medical problems including chronic obstructive pulmonary disease, portal hypertension due to cirrhosis, due to chronic hepatitis C with low platelets. The patient at this time came in with fever 102 and chest x-ray showed possible pneumonia, right lower lobe and may be left lower lobe pneumonia. Her urinalysis also noted for positive nitrite, positive urine leukocyte esterase, and lot of white blood cells 10-15, large bacteria. We will admit the patient with: 1. Community-acquired pneumonia. 2. Urinary tract infection, possible sepsis, at least she has systemic inflammatory response possibly due to urinary tract infection and pneumonia. 3. Hypertension. 4. Aortic aneurysm. 5. Liver cirrhosis with ascites. Plan to admit the patient. We will get ID consult, Pulmonary consult, nebulizer treatment. Right now she initially got Azactam. ID consult has already seen the patient, put her on meropenem. Seems tolerating it well and will continue followup with the enterprise resource planning consultant. We are also going to get GI consult look into the liver cirrhosis. We will discuss with them if the patient is a candidate for hepatitis C treatment. Continue current treatment. Resume all her medications. Followup clinically and currently we are going to give also IV fluid initially, which will be discontinued later when the patient's status improve. Also, the patient had left hip prosthesis with dislocation. We will get Dr. Adam Esparza to see the patient for any further treatment. Coagulopathy with high PT/INR. We will hold off on giving any anti dose at this time. We will monitor her PT/INR to come down. No Coumadin and monitor PT/INR daily. Repeat lab work in the morning. Followup clinically. Albin Forte MD
--- NOTE | 2017-09-30 18:14 | CP.PCM.CON ---
<Devika Ayoub - Last Filed: 09/30/17 18:10> History of Present Illness - History of Present Illness History of Present Illness: Seen and examined at the bedside, the chart reviewed earlier today. Request for GI consult is for cirrhosis/ascites history of hepatitis C. HPI: This is a 76-year-old female with past medical history of CVA with left- sided weakness, atrial fibrillation, aortic aneurysm status post stent, chronic anemia, atrial fibrillation and COPD was brought to the emergency room for reports of fever, vomiting and diarrhea as reported by patient's daughter in the ER. The patient complains of abdominal discomfort, no reports of nausea, or further episodes of vomiting, no hematopoiesis. Patient denies any shortness of breath, chest pain. This patient has been seen by our service in the past, the patient has a history of hepatitis C, currently not on treatment. The patient is a poor historian, information obtained from medical staff and patient's chart. On admission the patient had a CT scan of abdomen and pelvis with only IV contrast and reported an enlarged nodular cirrhotic liver, bilateral upper quadrant ascites and moderate amount of intraperitoneal free fluid in the pelvis with interval progression when compared to prior examination. Also noted to have splenomegaly with splenic varices representing portal hypertension. Also noted to have small left and possible trace right pleural effusion, and partially distended gallbladder with wall prominence and pericholecystic fluid. The patient also had a chest x-ray, which showed left lung base may reflect some consolidation and/or effusion. There is also biapical pleural thickening. Pelvis x-ray no acute findings. [facility] for full report. Past medical history: CVA with left-sided paralysis, atrial fibrillation, seizure disorder, aortic aneurysm status post stent, hepatitis C, CHF, chronic anemia, UTI, COPD, chronic constipation, diverticulosis, left breast mass, and indwelling urinary catheter. Past surgical history is endovascular graft for aortic aneurysm, cardiac catheterization, appendectomy, last colonoscopy was 03/2013 found to have diverticulosis, hemorrhoids and redundant colon. Last endoscopy was 2015 found to have medium-size hiatal hernia and esophagus, stomach and duodenum were normal. Patient also had left hip surgery. Family history: Noncontributory Social history: Former smoker, no history of EtOH or recreational drug use Allergies: Penicillin Medications reviewed as per [facility] ROS: Systems reviewed. Positive findings see HPI Past Patient History - Infectious Disease Hx of Infectious Diseases: None - Tetanus Immunizations Tetanus Immunization: Unknown - Past Social History Smoking Status: Never Smoked - CARDIAC Hx Cardiac Disorders: Yes Hx Cardia Arrhythmia: Yes (afib) Hx Congestive Heart Failure: Yes Hx Hypertension: Yes - PULMONARY Hx Respiratory Disorders: Yes Hx Pneumonia: Yes - NEUROLOGICAL Hx Neurological Disorder: Yes HX Cerebrovascular Accident: Yes (left side flaccid) Hx Paralysis: Yes (L sided) - HEENT Hx HEENT Problems: No - RENAL Hx Chronic Kidney Disease: No - ENDOCRINE/METABOLIC Hx Endocrine Disorders: No - HEMATOLOGICAL/ONCOLOGICAL Hx Blood Disorders: Yes Hx Anemia: Yes Hx Hepatitis C: Yes - INTEGUMENTARY Hx Dermatological Problems: No - MUSCULOSKELETAL/RHEUMATOLOGICAL Hx Musculoskeletal Disorders: Yes Hx Falls: Yes - GASTROINTESTINAL Hx Gastrointestinal Disorders: Yes Hx Diverticulitis: Yes - GENITOURINARY/GYNECOLOGICAL Hx Genitourinary Disorders: Yes Hx Urinary Tract Infection: Yes (chronic sy) - PSYCHIATRIC Hx Psychophysiologic Disorder: No Hx Substance Use: No - SURGICAL HISTORY Hx Appendectomy: Yes Hx Cardiac Catheterization: Yes Hx Coronary Stent: Yes Hx Orthopedic Surgery: Yes ("right hip hemiarthroplasty") - ANESTHESIA Hx Anesthesia: Yes Hx Anesthesia Reactions: No Hx Malignant Hyperthermia: No Meds Allergies/Adverse Reactions: Allergies Allergy/AdvReac Type Severity Reaction Status Date / Time Penicillins AdvReac Intermediate RASH Verified 09/28/17 21:18 - Medications Medications: Current Medications Acetaminophen (Tylenol 325mg Tab) 650 mg PO Q4H PRN PRN Reason: Temperature Acetylcysteine (Acetylcysteine 20%) 3 ml IH TID [facility] Last Admin: 09/30/17 11:12 Dose: 3 ml Albuterol/Ipratropium (Duoneb 3 Mg/0.5 Mg (3 Ml) Ud) 3 ml IH QID [facility] Last Admin: 09/30/17 11:13 Dose: 3 ml Docusate Sodium (Colace) 100 mg PO BID [facility] Last Admin: 09/30/17 11:21 Dose: 100 mg Famotidine (Pepcid) 20 mg PO DAILY [facility] Last Admin: 09/30/17 11:20 Dose: 20 mg Furosemide (Lasix) 20 mg PO DAILY [facility] Last Admin: 09/30/17 11:20 Dose: Not Given Gabapentin (Neurontin) 300 mg PO TID [facility] PRN Reason: Protocol Last Admin: 09/30/17 11:17 Dose: 300 mg Doxycycline Hyclate 100 mg/ (Sodium Chloride) 100 mls @ 100 mls/hr IVPB Q12 [facility]UDE PRN Reason: Protocol Stop: 10/09/17 22:01 Last Admin: 09/30/17 11:22 Dose: 100 mls/hr Meropenem (Merrem Iv 1 Gm Premix) 50 mls @ 100 mls/hr IVPB Q8 [facility] PRN Reason: Protocol Stop: 10/09/17 22:01 Last Admin: 09/30/17 05:23 Dose: 100 mls/hr Levetiracetam (Keppra) 500 mg PO BID [facility] Last Admin: 09/30/17 11:17 Dose: 500 mg Losartan Potassium (Cozaar) 50 mg PO BID [facility] Last Admin: 09/30/17 11:21 Dose: Not Given Magnesium Oxide (Mag-Ox) 400 mg PO BID [facility] Last Admin: 09/30/17 11:17 Dose: 400 mg Metoprolol Tartrate (Lopressor) 50 mg PO BRKDIN [facility] Last Admin: 09/30/17 11:20 Dose: 50 mg Oxycodone HCl (Oxycodone Immediate Release Tab) 15 mg PO Q6H PRN PRN Reason: Pain, moderate (4-7) Last Admin: 09/30/17 05:24 Dose: 15 mg Potassium Chloride (Klor-Con 10) 10 meq PO BRK [facility] Last Admin: 09/30/17 11:17 Dose: 10 meq Trazodone HCl (Desyrel) 50 mg PO HS [facility] Last Admin: 09/29/17 22:13 Dose: 50 mg Zolpidem Tartrate (Ambien) 5 mg PO HS PRN PRN Reason: Insomnia Physical Exam - Constitutional Appears: Well, No Acute Distress - Head Exam Head Exam: NORMOCEPHALIC - Eye Exam Eye Exam: Normal appearance. absent: Scleral icterus - ENT Exam ENT Exam: Mucous Membranes Moist - Neck Exam Neck exam: Positive for: Normal Inspection - Respiratory Exam Respiratory Exam: Decreased Breath Sounds, NORMAL BREATHING PATTERN. absent: Respiratory Distress - Cardiovascular Exam Cardiovascular Exam: +S1, +S2 - GI/Abdominal Exam GI & Abdominal Exam: Distended, Normal Bowel Sounds, Soft, Tenderness. absent: Guarding, Organomegaly, Rebound - Extremities Exam Extremities exam: Positive for: pedal pulses present. Negative for: calf tenderness - Neurological Exam Neurological exam: Alert, Oriented x3 Additional comments: left-sided weakness - Skin Skin Exam: Dry, Warm Results - Vital Signs Recent Vital Signs: Last Vital Signs Temp 98.2 F 09/30/17 08:00 Pulse 71 09/30/17 08:00 Resp 18 09/30/17 08:00 BP 135/58 L 09/30/17 11:20 Pulse Ox 94 L 09/30/17 08:00 - Labs Result Diagrams: 09/30/17 08:20 09/30/17 06:15 Labs: Laboratory Results - last 24 hr 09/30/17 09/30/17 09/30/17 06:15 06:15 06:15 WBC RBC Hgb Hct MCV MCH MCHC RDW Plt Count MPV PT 45.3 H INR 4.00 H* Sodium 141 Potassium 3.7 Chloride 113 H Carbon Dioxide 21 Anion Gap 11 BUN 18 Creatinine 0.7 Est GFR ( Amer) > 60 Est GFR (Non-Af Amer) > 60 Random Glucose 78 Calcium 7.4 L Magnesium 1.5 L Procalcitonin 09/30/17 09/30/17 07:45 08:20 WBC 4.6 D RBC 3.32 L Hgb 9.5 L Hct 29.0 L MCV 87.3 MCH 28.6 MCHC 32.8 RDW 15.7 H Plt Count 66 L MPV 10.0 PT INR Sodium Potassium Chloride Carbon Dioxide Anion Gap BUN Creatinine Est GFR ( Amer) Est GFR (Non-Af Amer) Random Glucose Calcium Magnesium Procalcitonin 0.37 Assessment & Plan - Assessment and Plan (Free Text) Assessment: Assessment: Fever/sepsis/pneumonia, other differentials, SBP Diarrhea, r/o C diff Distended GB w/ wall prominence/pericholecystic fluid UTI Liver cirrhosis with ascites Chronic hepatitis C CVA with left-sided weakness Hypertension COPD Coagulopathy Left hip prosthesis dislocation Plan: On IV antibiotics as per ID Continue Colace Continue Pepcid for GI prophylaxis On Lasix On pain medication Abdominal ultrasound stool cdiff Thank you for this consult and for allowing us to participate in your patient's care, further recommendations based upon clinical course. Seen and discussed with Dr. Galindo. <Maeve Galindo V - Last Filed: 09/30/17 20:31> Meds - Medications Medications: Current Medications Acetaminophen (Tylenol 325mg Tab) 650 mg PO Q4H PRN PRN Reason: Temperature Acetylcysteine (Acetylcysteine 20%) 3 ml IH TID [facility] Last Admin: 09/30/17 15:56 Dose: 3 ml Albuterol/Ipratropium (Duoneb 3 Mg/0.5 Mg (3 Ml) Ud) 3 ml IH QID [facility] Last Admin: 09/30/17 15:56 Dose: 3 ml Docusate Sodium (Colace) 100 mg PO BID [facility] Last Admin: 09/30/17 18:36 Dose: 100 mg Famotidine (Pepcid) 20 mg PO DAILY [facility] Last Admin: 09/30/17 11:20 Dose: 20 mg Furosemide (Lasix) 20 mg PO DAILY [facility] Last Admin: 09/30/17 11:20 Dose: Not Given Gabapentin (Neurontin) 300 mg PO TID [facility] PRN Reason: Protocol Last Admin: 09/30/17 18:36 Dose: 300 mg Doxycycline Hyclate 100 mg/ (Sodium Chloride) 100 mls @ 100 mls/hr IVPB Q12 [facility] PRN Reason: Protocol Stop: 10/09/17 22:01 Last Admin: 09/30/17 11:22 Dose: 100 mls/hr Meropenem (Merrem Iv 1 Gm Premix) 50 mls @ 100 mls/hr IVPB Q8 [facility] PRN Reason: Protocol Stop: 10/09/17 22:01 Last Admin: 09/30/17 14:32 Dose: 100 mls/hr Levetiracetam (Keppra) 500 mg PO BID [facility] Last Admin: 09/30/17 18:36 Dose: 500 mg Losartan Potassium (Cozaar) 50 mg PO BID [facility] Last Admin: 09/30/17 18:36 Dose: Not Given Magnesium Oxide (Mag-Ox) 400 mg PO BID [facility] Last Admin: 09/30/17 18:36 Dose: 400 mg Metoprolol Tartrate (Lopressor) 50 mg PO BRKDIN [facility] Last Admin: 09/30/17 18:37 Dose: Not Given Oxycodone HCl (Oxycodone Immediate Release Tab) 15 mg PO Q6H PRN PRN Reason: Pain, moderate (4-7) Last Admin: 09/30/17 05:24 Dose: 15 mg Potassium Chloride (Klor-Con 10) 10 meq PO BRK [facility] Last Admin: 09/30/17 11:17 Dose: 10 meq Trazodone HCl (Desyrel) 50 mg PO HS [facility] CLAU[facility] Last Admin: 09/29/17 22:13 Dose: 50 mg Zolpidem Tartrate (Ambien) 5 mg PO HS PRN PRN Reason: Insomnia Results - Vital Signs Recent Vital Signs: Last Vital Signs Temp 98.2 F 09/30/17 08:00 Pulse 71 09/30/17 08:00 Resp 18 09/30/17 08:00 BP 135/58 L 09/30/17 11:20 Pulse Ox 94 L 09/30/17 08:00 - Labs Result Diagrams: 09/30/17 08:20 09/30/17 06:15 Labs: Laboratory Results - last 24 hr 09/30/17 09/30/17 09/30/17 06:15 06:15 06:15 WBC RBC Hgb Hct MCV MCH MCHC RDW Plt Count MPV PT 45.3 H INR 4.00 H* Sodium 141 Potassium 3.7 Chloride 113 H Carbon Dioxide 21 Anion Gap 11 BUN 18 Creatinine 0.7 Est GFR ( Amer) > 60 Est GFR (Non-Af Amer) > 60 Random Glucose 78 Calcium 7.4 L Magnesium 1.5 L Procalcitonin 09/30/17 09/30/17 07:45 08:20 WBC 4.6 D RBC 3.32 L Hgb 9.5 L Hct 29.0 L MCV 87.3 MCH 28.6 MCHC 32.8 RDW 15.7 H Plt Count 66 L MPV 10.0 PT INR Sodium Potassium Chloride Carbon Dioxide Anion Gap BUN Creatinine Est GFR ( Amer) Est GFR (Non-Af Amer) Random Glucose Calcium Magnesium Procalcitonin 0.37 Attending/Attestation - Attestation I have personally seen and examined this patient.: Yes I have fully participated in the care of the patient.: Yes I have reviewed all pertinent clinical information: Yes Notes (Text): This is an addendum to GI Consult report dictated by Devika Ayoub APN.The patient was seen and examined earlier. Medical records, lab studies, imagings were reviewed. Last 24 hours events reviewed. Agreed with the above treatment plan as outlined in Devika Ayoub,[employer]'s notes the with the addition of the following On examination abdomen softly distended mild tenderness present Continue the antibiotics Follow-up stool studies Ultrasound scan of the abdomen thank you very much for allowing us to participate in the care of the patient 09/30/17 20:30
--- NOTE | 2017-09-30 18:25 | PN ---
DATE: 09/30/2017 SUBJECTIVE: The patient is in bed, in no acute distress, nontoxic. No fevers and chills. PHYSICAL EXAMINATION: VITAL SIGNS: Temperature is 98, blood pressure is 180/70, respiratory rate of 16, heart rate of 60. HEENT: Unremarkable. NECK: Supple. LUNGS: Have decreased breath sounds. HEART: Normal S1, S2. ABDOMEN: Soft. LABORATORY DATA: A white count is changed from 3.2-4.6. Hemoglobin is 9. BUN and creatinine is noted. Procalcitonin 0.37 and urinalysis is 10-15 wbc's. Microbiology reveals the blood cultures are no growth. ASSESSMENT AND PLAN: This is a 76-year-old female with past medical history of coronary artery disease, cardiac stents, high cholesterol, hyperlipidemia, atrial fibrillation, diverticulitis and history of tonsillectomy, appendectomy, admitted with dementia, seizures, anxiety, depression and hepatitis C with sepsis with urine as the source. Awaiting for the urine culture results and currently on Flagyl and meropenem and we will follow closely with you. Ricardo Burgos MD
--- NOTE | 2017-10-01 00:39 | CON ---
DATE: 09/30/2017 HISTORY OF PRESENT ILLNESS: This is a 76-year-old female seen on consultation for ulceration to her heel. The patient is examined at bedside and the chart was reviewed today. PAST MEDICAL HISTORY: The patient's past medical history is positive for CVA with left-sided paralysis, AFib, aortic aneurysm. The patient has a stent, hepatitis C, CHF, seizure disorders. She has a history of chronic anemia, COPD, diverticulosis, left breast mass and she does have an indwelling catheter. PAST SURGICAL HISTORY: Her past surgical history is positive for the stent as noted above for the aortic aneurysm, cardiac cath. The patient has had an appendectomy, colostomy and endoscopy. The patient also has had left hip surgery. FAMILY HISTORY: Noncontributory. SOCIAL HISTORY: Negative for tobacco, negative for EtOH. ALLERGIES: SHE DOES HAVE AN ALLERGY TO PENICILLIN. REVIEW OF SYSTEMS: Reviewed and positive findings were as noted above. PHYSICAL EXAMINATION: VITAL SIGNS: Reviewed. Temperature is 98.2, blood pressure is 186/79 and the oxygen sat was 94 on room air. MEDICATIONS: Patient's medications are noted on the MAR and as noted above she has an ALLERGY TO PENICILLIN. LABORATORY DATA: The patients labs were noted. Her white blood cell count is 4.6. The H and H is 9.5 and 29.0, platelets are 66. Chemistry shows sodium and potassium is 141 and 3.7, chloride is 113. BUN and creatinine is 18 and 0.7 and the glucose was 78. The patient was seen at bedside. She does have heel pads in place. Upon removal of the heel pads, the patient is noted to have bilateral drop foot deformity. She is very tender to her lower extremities with minimum movement of her legs. She has nonpalpable pedal pulses bilateral. Temperature gradient is warm and the capillary refill time is delayed x 10. Her neurological sensation has an absent Babinski and she as noted above is hypersensitive to touch. Her right heel is without ulceration as is the entire leg. She does have ecchymosis on the dorsolateral aspect of the right foot; however, there is no break in the skin and it seems to be an old bruise at this point. It is not fluctuant and is not warm and there is no pressure under the skin. The left heel does have a small stage II ulcer at the distal portion of the heel and at the proximal portion of the heel there is a very small 1 x 1 cm deep tissue injury. At this time, there are no signs of infection and she does also have an ecchymotic bruise on the left medial lower leg. Again, there does not seem to be active hematoma in that area. ASSESSMENT: Contusions and a small deep tissue area to the left heel and small stage II ulceration to the left heel. PLAN OR TREATMENT: The patient will be dressed with a foam dressing on Friday, Friday and Friday. She is already offloaded and heel boots and she will be seen in followup. Bettie Arteaga DPM
--- NOTE | 2017-10-01 03:14 | CON ---
DATE: 09/30/2019 REFERRING PHYSICIAN: REASON FOR CONSULTATION: Chronic lung disease. HISTORY OF PRESENT ILLNESS: This is a 76-year-old female with past medical history significant for hypertension, history of stroke, basically bedridden, history of sacral decubiti, hypertension, abdominal aortic aneurysm, history of hepatitis, depression, also had seizures in the past, came into emergency room with a fever, some cough, shortness of breath. No nausea, no vomiting. No diarrhea. PAST MEDICAL HISTORY: As per history present illness. SOCIAL HISTORY: Nonsmoker, nondrinker. She lives with her daughter, very supportive. ALLERGIES: ALLERGIC TO PENICILLIN. FAMILY HISTORY: No significant cardiopulmonary disease reported. MEDICATIONS: She is on Mucomyst 20% 3 mL three times a day, Ambien 5 mg at bedtime p.r.n., Colace 100 mg twice a day, Cozaar 50 mg twice a day, trazodone 50 mg at bedtime, doxycycline 100 mg twice a day, DuoNeb q.i.d., Keppra 500 mg twice a day, potassium 10 mEq daily, Lasix 20 mg daily, metoprolol tartrate 50 mg twice a day, magnesium oxide 400 mg twice a day, meropenem 50 mg q.8 hour, gabapentin 300 mg three times a day, oxycodone immediate release 50 mg q.6 hour p.r.n., Pepcid 20 mg daily, Tylenol p.r.n. basis. REVIEW OF SYSTEMS: No headache, no rhinitis. Has cough, shortness of breath. No chest pain on left or nausea, no vomiting. Constipated; has leg tenderness. PHYSICAL EXAMINATION: GENERAL: No acute distress. VITAL SIGNS: Temperature is 98, heart rate 71, respiratory rate 18, blood pressure 135/58, pulse of 94%, 2 liters nasal cannula. HEENT: Small oral cavity. NECK: Supple. No JVD. LUNGS: Have scattered rhonchi and wheezing. HEART: S1, S2. ABDOMEN: Soft, nontender. No organomegaly. EXTREMITIES: There is no edema. NEUROLOGIC: Awake, alert, and follows simple commands. LABORATORY DATA: Shows hemoglobin 9.5, hematocrit 29.0, WBC 4.6, platelets are 66. INR was 4.0. Blood gas on admission, which was VBG shows pH 7.33, pCO2 47, O2 is 183, there was also supplemental oxygen. Sodium 141, potassium 3.7, chloride 113, bicarbonate 21, BUN 18, creatinine 0.7, glucose 78, calcium is 7.4, magnesium 1.50, procalcitonin 0.37. Microbiology: Blood culture is negative. Urine culture has gram-negative and positive cocci. Chest x-ray done in ER on admission shows opacity of the left lung base with a plaque consolidation or effusion. Also have biapical pleural thickening, cardiomegaly, has aortic stent. CT of the abdomen was done shows left hip joint effusions; superolateral left hip prosthesis, which is distal location; has ascites, intraperitoneal free fluid suggestive of cirrhotic liver, may have portal hypertension, partially distended gallbladder, bilateral small pleural effusion. IMPRESSION AND PLAN: Sepsis, urinary tract infection versus pneumonia, chronic obstructive lung disease, coronary artery disease, history of coronary stent, hyperlipidemia, cardiac arrhythmia, atrial fibrillation, diverticulitis, history of seizure disorder, anxiety, history of cerebrovascular accident, history of hepatitis C, hip prosthesis dislocation. Pulmonary point of view, continue bronchodilator. Keep head at 45 degrees. Antibiotics covering healthcare-associated organism. The patient will be seen by Orthopedic Surgery, pressure ulcer precaution. Gastric prophylaxis, seizure precaution, pain management. Continue supplemental oxygen. Thank you and we will follow with you. Anushka Barreto MD
[2017-10-01] MEDS: oxyCODONE 15 mg Immediate Release Tab PO PRN ×2 (05:55→15:04)
[2017-10-01] MEDS: Meropenem IV 1 gm in NS 50 ML IVPB SCH ×3 (05:55→22:02)
[2017-10-01 07:52] LABS: HEMATOCRIT 27.7 % (36.0-48.0); MEAN CELL VOLUME 87.1 fl (80.0-105.0); MEAN CORPUSCULAR HEMOGLOBIN 28.9 pg (25.0-35.0); MEAN CORPUSCULAR HGB CONC 33.2 g/dl (31.0-37.0); MEAN PLATELET VOLUME 10.1 fl (7.0-11.0); RED CELL DISTRIBUTION WIDTH 15.7 % (11.5-14.5); WHITE BLOOD COUNT 5.3 10^3/ul (4.5-11.0)
[2017-10-01 08:02] LABS: INR 2.4 (0.93-1.08)
[2017-10-01 08:27] LABS: BLOOD UREA NITROGEN 15 mg/dL (7-21); CALCIUM 7.7 mg/dL (8.4-10.5); CARBON DIOXIDE 23 mmol/L (21-33); CHLORIDE 113 mmol/L (98-107); GFR AFRICAN-AMERICAN > 60; GLUCOSE,RANDOM 82 mg/dL (70-110); MAGNESIUM 2.1 mg/dL (1.7-2.2); POTASSIUM 3.9 mmol/L (3.6-5.0); SODIUM 141 mmol/L (132-148)
[2017-10-01] MEDS: Acetylcysteine 20% Inhal Soln (4ml) IH SCH ×2 (09:35→13:45)
[2017-10-01] MEDS: Albuterol-Ipratrop 3 mg / 0.5 (3 ml) UD IH SCH ×3 (09:36→21:37)
--- NOTE | 2017-10-01 10:07 | US ---
HISTORY: liver cirrhosis/ascites COMPARISON: CT abdomen and pelvis 12/28/2016 TECHNIQUE: Sonographic evaluation of the abdomen. FINDINGS: LIVER: Measures 17.0 cm. Diffuse increased echogenicity of the liver parenchyma. No mass. No intrahepatic bile duct dilatation. GALLBLADDER: No gallstones. There is gallbladder sludge suggested. Gallbladder wall thickening. No pericholecystic fluid. No positive sonographic Hall sign COMMON BILE DUCT: Measures 8.6 mm. No stones. No dilatation. PANCREAS: Unremarkable as visualized. No mass. No ductal dilatation. RIGHT KIDNEY: Measures 12.2 x 4.5 x 4.9cm. Normal echogenicity. No calculus, mass, or hydronephrosis. LEFT KIDNEY: Measures 11.2 x 4.9 x 4.8cm. Normal echogenicity. No calculus, no solid appearing masses, or hydronephrosis. . Left upper pole renal cyst 1.8 x 1.2 x 1.5 and midpole cyst 1.9 x 1.6 x 1.7 cm. SPLEEN: 14 x 6 x 6 cm- mildly enlarged AORTA: A infrarenal descending abdominal aortic aneurysm on this exam measures approximately 3.4 cm. This was noted on the prior CT report IVC: Unremarkable. OTHER FINDINGS: None. IMPRESSION: Enlarged heterogeneous and nodular liver consistent with cirrhosis. Mild splenomegaly. Trace ascites right upper quadrant - on this exam Gallbladder sludge. No gallstones. No signs of secondary acute cholecystitis Infrarenal descending abdominal aortic aneurysm -on this exam measuring up to 3.4 cm - reported larger on prior CT Benign-appearing left renal cysts
[2017-10-01] MEDS: Potassium Chloride 10 mEq ER Tab PO SCH (10:20)
[2017-10-01] MEDS: Magnesium Oxide 400 mg Tab UD PO SCH ×2 (10:21→18:00)
--- NOTE | 2017-10-01 11:10 | PN ---
DATE: 09/30/2017 SUBJECTIVE: She is comfortable. She has no respiratory distress. She does complain of some phlegm in the throat and that she has difficulty it because of her weakness, but there is no fever. No respiratory distress. No chest pain. PHYSICAL EXAMINATION: VITAL SIGNS: Temperature 97.2, heart rate 60, blood pressure 158/ , respirations 16, and saturation 95%. HEAD AND NECK: Normal. No JVD. No thyromegaly. CHEST: Clear. Few rhonchi, especially upper airways. CARDIAC: First sound and second normal with systolic murmur. ABDOMEN: Soft and nontender. EXTREMITIES: There is no edema, but the patient is bedridden, both lower extremities pillow in between and also the patient right hemiplegia. LABORATORY STUDIES: From 09/30/2017, white count is 4.6, hemoglobin 9.5, hematocrit 29, and platelets 66. Chemistry shows sodium 141, potassium 3.7, chloride 113, bicarbonate 21, BUN 18, creatinine 0.7. The patient also has calcium of 7.4 and magnesium 1.5. Liver function test is normal. Albumin is low at 2.3 and globulin 2.6. IMPRESSION AND PLAN: 1. Fever, etiology probably secondary to urinary tract infections and community-acquired pneumonia. Plan is to continue current IV antibiotics. Right now, the patient does receive meropenem 1 g IV q.8 hours and getting doxycycline 100 b.i.d. 2. History of seizure disorder. Continue Keppra 500 b.i.d. 3. Chronic back pain and osteoarthritis. Continue oxycodone 50 mg. 4. Chronic obstructive pulmonary disease and community-acquired pneumonia. Continue Mucomyst. Continue inhaled bronchodilators. 5. Hypertension. The patient is currently on Cozaar, pressure seems stable. She is also getting Cozaar 50 mg b.i.d., metoprolol 50 mg b.i.d., and she is getting Lasix 20 mg p.o. daily. We will continue therapy. We will review her medications with her daughter about blood pressure medications. Followup clinically. Repeat lab in the morning. 6. The patient is seen by ID consult, Pulmonary consult, and also GI consult. Dr. Galindo was consulted on the case for her chronic liver disease and ascites. Albin Forte MD [facility] # [id number]
--- NOTE | 2017-10-01 13:49 | CP.PCM.CON ---
History of Present Illness - History of Present Illness History of Present Illness: Surgery 76 F w h/o multiple comorbidity including CHF, Afib, cirrhosis w ascites, COPD, CVA. Surgery is consulted to evaluate for gallbladder sludge. Pt has h/o CVA w L side paralysis. Surgery is consulted to evaluate for gallbladder sludge. US shows gallbladder sludge. Pt is poor historian. Reports low abd pain. Denies N/V / RUQ pain. Past medical history: CVA with left-sided paralysis, atrial fibrillation, seizure disorder, aortic aneurysm status post stent, hepatitis C, CHF, chronic anemia, UTI, COPD, chronic constipation, diverticulosis, left breast mass, and indwelling urinary catheter. Past surgical history is endovascular graft for aortic aneurysm, cardiac catheterization, appendectomy, last colonoscopy was 03/2013 found to have diverticulosis, hemorrhoids and redundant colon. Last endoscopy was 2015 found to have medium-size hiatal hernia and esophagus, stomach and duodenum were normal. Patient also had left hip surgery. Family history: Noncontributory Social history: Former smoker, no history of EtOH or recreational drug use Allergies: Penicillin Review of Systems - Review of Systems Review of Systems: See HPI Past Patient History - Infectious Disease Hx of Infectious Diseases: None - Tetanus Immunizations Tetanus Immunization: Unknown - Past Social History Smoking Status: Never Smoked - CARDIAC Hx Cardiac Disorders: Yes Hx Cardia Arrhythmia: Yes (afib) Hx Congestive Heart Failure: Yes Hx Hypertension: Yes - PULMONARY Hx Respiratory Disorders: Yes Hx Pneumonia: Yes - NEUROLOGICAL Hx Neurological Disorder: Yes HX Cerebrovascular Accident: Yes (left side flaccid) Hx Paralysis: Yes (L sided) - HEENT Hx HEENT Problems: No - RENAL Hx Chronic Kidney Disease: No - ENDOCRINE/METABOLIC Hx Endocrine Disorders: No - HEMATOLOGICAL/ONCOLOGICAL Hx Blood Disorders: Yes Hx Anemia: Yes Hx Hepatitis C: Yes - INTEGUMENTARY Hx Dermatological Problems: No - MUSCULOSKELETAL/RHEUMATOLOGICAL Hx Musculoskeletal Disorders: Yes Hx Falls: Yes - GASTROINTESTINAL Hx Gastrointestinal Disorders: Yes Hx Diverticulitis: Yes - GENITOURINARY/GYNECOLOGICAL Hx Genitourinary Disorders: Yes Hx Urinary Tract Infection: Yes (chronic sy) - PSYCHIATRIC Hx Psychophysiologic Disorder: No Hx Substance Use: No - SURGICAL HISTORY Hx Appendectomy: Yes Hx Cardiac Catheterization: Yes Hx Coronary Stent: Yes Hx Orthopedic Surgery: Yes ("right hip hemiarthroplasty") - ANESTHESIA Hx Anesthesia: Yes Hx Anesthesia Reactions: No Hx Malignant Hyperthermia: No Meds Allergies/Adverse Reactions: Allergies Allergy/AdvReac Type Severity Reaction Status Date / Time Penicillins AdvReac Intermediate RASH Verified 09/28/17 21:18 - Medications Medications: Current Medications Acetaminophen (Tylenol 325mg Tab) 650 mg PO Q4H PRN PRN Reason: Temperature Acetylcysteine (Acetylcysteine 20%) 3 ml IH TID [facility] Last Admin: 10/01/17 09:35 Dose: 3 ml Albuterol/Ipratropium (Duoneb 3 Mg/0.5 Mg (3 Ml) Ud) 3 ml IH QID [facility] Last Admin: 10/01/17 09:36 Dose: 3 ml Docusate Sodium (Colace) 100 mg PO BID [facility] Last Admin: 10/01/17 10:21 Dose: 100 mg Famotidine (Pepcid) 20 mg PO DAILY [facility] Last Admin: 10/01/17 10:21 Dose: 20 mg Furosemide (Lasix) 20 mg PO DAILY [facility] Last Admin: 10/01/17 10:21 Dose: 20 mg Gabapentin (Neurontin) 300 mg PO TID [facility] PRN Reason: Protocol Last Admin: 10/01/17 10:21 Dose: 300 mg Doxycycline Hyclate 100 mg/ (Sodium Chloride) 100 mls @ 100 mls/hr IVPB Q12 [facility] PRN Reason: Protocol Stop: 10/09/17 22:01 Last Admin: 10/01/17 10:23 Dose: 100 mls/hr Meropenem (Merrem Iv 1 Gm Premix) 50 mls @ 100 mls/hr IVPB Q8 [facility] PRN Reason: Protocol Stop: 10/09/17 22:01 Last Admin: 10/01/17 05:55 Dose: 100 mls/hr Levetiracetam (Keppra) 500 mg PO BID [facility] Last Admin: 10/01/17 10:21 Dose: 500 mg Losartan Potassium (Cozaar) 50 mg PO BID [facility] Last Admin: 10/01/17 10:20 Dose: 50 mg Magnesium Oxide (Mag-Ox) 400 mg PO BID [facility] Last Admin: 10/01/17 10:21 Dose: 400 mg Metoprolol Tartrate (Lopressor) 50 mg PO BRKDIN [facility] Last Admin: 10/01/17 10:21 Dose: 50 mg Oxycodone HCl (Oxycodone Immediate Release Tab) 15 mg PO Q6H PRN PRN Reason: Pain, moderate (4-7) Last Admin: 10/01/17 05:55 Dose: 15 mg Potassium Chloride (Klor-Con 10) 10 meq PO BRK [facility] Last Admin: 10/01/17 10:20 Dose: 10 meq Trazodone HCl (Desyrel) 50 mg PO HS [facility] Last Admin: 09/30/17 21:41 Dose: 50 mg Zolpidem Tartrate (Ambien) 5 mg PO HS PRN PRN Reason: Insomnia Physical Exam - Constitutional Appears: Chronically Ill - Head Exam Head Exam: ATRAUMATIC, NORMAL INSPECTION, NORMOCEPHALIC - Eye Exam Eye Exam: EOMI, Normal appearance, PERRL Pupil Exam: NORMAL ACCOMODATION, PERRL - ENT Exam ENT Exam: Mucous Membranes Moist, Normal Exam - Neck Exam Neck exam: Positive for: Normal Inspection - Respiratory Exam Respiratory Exam: Clear to Auscultation Bilateral, NORMAL BREATHING PATTERN - GI/Abdominal Exam GI & Abdominal Exam: Distended, Normal Bowel Sounds, Soft, Tenderness. absent: Firm, Guarding, Hernia Additional comments: Low abd TTP - Extremities Exam Extremities exam: Negative for: full ROM Additional comments: L side weakness. contracted - Skin Skin Exam: Dry, Intact, Normal Color, Warm Results - Vital Signs Recent Vital Signs: Last Vital Signs Temp 98.3 F 10/01/17 08:00 Pulse 70 10/01/17 10:21 Resp 20 10/01/17 08:00 BP 150/70 10/01/17 10:21 Pulse Ox 96 10/01/17 08:00 - Labs Result Diagrams: 10/01/17 07:30 10/01/17 07:30 Labs: Laboratory Results - last 24 hr 10/01/17 10/01/17 10/01/17 07:30 07:30 07:30 WBC 5.3 RBC 3.18 L Hgb 9.2 L Hct 27.7 L MCV 87.1 MCH 28.9 MCHC 33.2 RDW 15.7 H Plt Count 88 L MPV 10.1 PT 26.9 H INR 2.40 H Sodium 141 Potassium 3.9 Chloride 113 H Carbon Dioxide 23 Anion Gap 9 L BUN 15 Creatinine 0.6 L Est GFR ( Amer) > 60 Est GFR (Non-Af Amer) > 60 Random Glucose 82 Calcium 7.7 L Magnesium 2.1 Assessment & Plan - Assessment and Plan (Free Text) Assessment: gallbladder sludge No RUQ pain. -Pt is poor surgical candidate because of multiple cormobidity including cirrhosis with ascites. -No emergent surgery indicated at this time. ANASTASIA Gonzales
--- NOTE | 2017-10-01 17:15 | CP.PCM.PN ---
<Devika Ayoub - Last Filed: 10/01/17 17:13> Subjective - Date & Time of Evaluation Date of Evaluation: 10/01/17 Time of Evaluation: 11:20 - Subjective Subjective: Seen and examined at the bedside earlier today, the chart was reviewed. Patient went for abdominal ultrasound this morning, reported to have gallbladder sludge with no gallstones or signs of acute cholecystitis. Patient has abdominal discomfort to left lower quadrant. No acute overnight events reported. Patient denies nausea, vomiting. No reports of fever or chills. Objective - Vital Signs/Intake and Output Vital Signs (last 24 hours): Temp Pulse Resp BP Pulse Ox 98.3 F 70 20 150/70 96 10/01/17 08:00 10/01/17 10:21 10/01/17 08:00 10/01/17 10:21 10/01/17 08:00 Intake and Output: 10/01/17 10/01/17 06:59 18:59 Intake Total 480 Output Total 300 Balance 180 - Medications Medications: Current Medications Acetaminophen (Tylenol 325mg Tab) 650 mg PO Q4H PRN PRN Reason: Temperature Acetylcysteine (Acetylcysteine 20%) 3 ml IH TID [facility] Last Admin: 10/01/17 13:45 Dose: 3 ml Albuterol/Ipratropium (Duoneb 3 Mg/0.5 Mg (3 Ml) Ud) 3 ml IH QID [facility] Last Admin: 10/01/17 13:45 Dose: 3 ml Docusate Sodium (Colace) 100 mg PO BID [facility] Last Admin: 10/01/17 10:21 Dose: 100 mg Famotidine (Pepcid) 20 mg PO DAILY [facility] Last Admin: 10/01/17 10:21 Dose: 20 mg Furosemide (Lasix) 20 mg PO DAILY [facility] Last Admin: 10/01/17 10:21 Dose: 20 mg Gabapentin (Neurontin) 300 mg PO TID [facility] PRN Reason: Protocol Last Admin: 10/01/17 14:26 Dose: 300 mg Doxycycline Hyclate 100 mg/ (Sodium Chloride) 100 mls @ 100 mls/hr IVPB Q12 [facility] PRN Reason: Protocol Stop: 10/09/17 22:01 Last Admin: 10/01/17 10:23 Dose: 100 mls/hr Meropenem (Merrem Iv 1 Gm Premix) 50 mls @ 100 mls/hr IVPB Q8 [facility] PRN Reason: Protocol Stop: 10/09/17 22:01 Last Admin: 10/01/17 14:53 Dose: 100 mls/hr Levetiracetam (Keppra) 500 mg PO BID [facility] Last Admin: 10/01/17 10:21 Dose: 500 mg Losartan Potassium (Cozaar) 50 mg PO BID [facility] Last Admin: 10/01/17 10:20 Dose: 50 mg Magnesium Oxide (Mag-Ox) 400 mg PO BID [facility] Last Admin: 10/01/17 10:21 Dose: 400 mg Metoprolol Tartrate (Lopressor) 50 mg PO BRKDIN [facility] Last Admin: 10/01/17 10:21 Dose: 50 mg Oxycodone HCl (Oxycodone Immediate Release Tab) 15 mg PO Q6H PRN PRN Reason: Pain, moderate (4-7) Last Admin: 10/01/17 15:04 Dose: 15 mg Potassium Chloride (Klor-Con 10) 10 meq PO BRK [facility] Last Admin: 10/01/17 10:20 Dose: 10 meq Trazodone HCl (Desyrel) 50 mg PO HS [facility] Last Admin: 09/30/17 21:41 Dose: 50 mg Zolpidem Tartrate (Ambien) 5 mg PO HS PRN PRN Reason: Insomnia - Labs Labs: 10/01/17 07:30 10/01/17 07:30 PT 26.9 SECONDS (9.4-12.5) H 10/01/17 07:30 INR 2.40 (0.93-1.08) H 10/01/17 07:30 APTT 49.7 Seconds (25.1-36.5) H 09/28/17 22:00 - Constitutional Appears: No Acute Distress - Eye Exam Eye Exam: Normal appearance. absent: Scleral icterus - ENT Exam ENT Exam: Mucous Membranes Moist - Neck Exam Neck Exam: Normal Inspection - Respiratory Exam Respiratory Exam: NORMAL BREATHING PATTERN. absent: Respiratory Distress - Cardiovascular Exam Cardiovascular Exam: +S1, +S2 - GI/Abdominal Exam GI & Abdominal Exam: Soft, Tenderness (Left quaderant, firm) - Extremities Exam Extremities Exam: absent: Calf Tenderness Additional comments: left-sided weakness - Neurological Exam Neurological Exam: Alert, Awake - Skin Skin Exam: Dry, Warm Assessment and Plan - Assessment and Plan (Free Text) Assessment: Assessment: Fever/sepsis/pneumonia, other differentials, SBP Left quadrant abdominal pain Diarrhea, r/o C diff Status post abdominal ultrasound, gallbladder sludge, no evidence of cholecystitis UTI Liver cirrhosis with ascites Chronic hepatitis C CVA with left-sided weakness Hypertension COPD Coagulopathy Left hip prosthesis dislocation Plan: On IV antibiotics as per ID Continue Colace Continue Pepcid for GI prophylaxis On Lasix On pain medication stool cdiff evaluated by surgery Seen and discussed with Dr. Galindo. <Maeve Galindo V - Last Filed: 10/02/17 00:53> Objective - Vital Signs/Intake and Output Vital Signs (last 24 hours): Temp Pulse Resp BP Pulse Ox 98 F 76 20 128/68 98 10/01/17 18:59 10/01/17 18:59 10/01/17 18:59 10/01/17 18:59 10/01/17 18:59 Intake and Output: 10/01/17 10/02/17 18:59 06:59 Intake Total 120 Output Total 650 Balance -530 - Medications Medications: Current Medications Acetaminophen (Tylenol 325mg Tab) 650 mg PO Q4H PRN PRN Reason: Temperature Acetylcysteine (Acetylcysteine 20%) 3 ml IH TID [facility] Last Admin: 10/01/17 13:45 Dose: 3 ml Albuterol/Ipratropium (Duoneb 3 Mg/0.5 Mg (3 Ml) Ud) 3 ml IH QID [facility] Last Admin: 10/01/17 21:37 Dose: 3 ml Docusate Sodium (Colace) 100 mg PO BID [facility] Last Admin: 10/01/17 18:00 Dose: 100 mg Famotidine (Pepcid) 20 mg PO DAILY [facility] Last Admin: 10/01/17 10:21 Dose: 20 mg Furosemide (Lasix) 20 mg PO DAILY [facility] Last Admin: 10/01/17 10:21 Dose: 20 mg Gabapentin (Neurontin) 300 mg PO TID [facility] PRN Reason: Protocol Last Admin: 10/01/17 18:00 Dose: 300 mg Doxycycline Hyclate 100 mg/ (Sodium Chloride) 100 mls @ 100 mls/hr IVPB Q12 [facility] PRN Reason: Protocol Stop: 10/09/17 22:01 Last Admin: 10/01/17 22:01 Dose: 100 mls/hr Meropenem (Merrem Iv 1 Gm Premix) 50 mls @ 100 mls/hr IVPB Q8 [facility] PRN Reason: Protocol Stop: 10/09/17 22:01 Last Admin: 10/01/17 22:02 Dose: 100 mls/hr Levetiracetam (Keppra) 500 mg PO BID [facility] Last Admin: 10/01/17 18:00 Dose: 500 mg Losartan Potassium (Cozaar) 50 mg PO BID [facility] Last Admin: 10/01/17 18:00 Dose: 50 mg Magnesium Oxide (Mag-Ox) 400 mg PO BID [facility] Last Admin: 10/01/17 18:00 Dose: 400 mg Metoprolol Tartrate (Lopressor) 50 mg PO BRKDIN [facility] Last Admin: 10/01/17 17:59 Dose: 50 mg Oxycodone HCl (Oxycodone Immediate Release Tab) 15 mg PO Q6H PRN PRN Reason: Pain, moderate (4-7) Last Admin: 10/01/17 15:04 Dose: 15 mg Potassium Chloride (Klor-Con 10) 10 meq PO BRK [facility] Last Admin: 10/01/17 10:20 Dose: 10 meq Trazodone HCl (Desyrel) 50 mg PO HS [facility] Last Admin: 10/01/17 21:41 Dose: 50 mg Zolpidem Tartrate (Ambien) 5 mg PO HS PRN PRN Reason: Insomnia - Labs Labs: 10/01/17 07:30 10/01/17 07:30 PT 26.9 SECONDS (9.4-12.5) H 10/01/17 07:30 INR 2.40 (0.93-1.08) H 10/01/17 07:30 APTT 49.7 Seconds (25.1-36.5) H 09/28/17 22:00 Attending/Attestation - Attestation I have personally seen and examined this patient.: Yes I have fully participated in the care of the patient.: Yes I have reviewed all pertinent clinical information, including history, physical exam and plan: Yes Notes (Text): This is an addendum to GI progress report dictated by Devika Ayoub APN.The patient was seen and examined earlier. Medical records, lab studies, imagings were reviewed. Last 24 hours events reviewed. Agreed with the above treatment plan as outlined in Devika Ayoub APN's notes the with the addition of the following Patient has some discomfort in the left side of the abdomen versus groin. Being treated for ESBL UTI History of C. difficile in the past Review of the x-ray showed a chronic subluxation of the left hip prosthesis with the deformity of the pelvic area and this could attribute partially due to the pain in that area Gallbladder sludge no tenderness surgical note noted no acute intervention needed Continue the antibiotics as per ID 10/02/17 00:51
--- NOTE | 2017-10-01 21:04 | PN ---
PULMONARY PROGRESS NOTE DATE: 10/01/2017 REFERRING PHYSICIAN: Albin Forte MD SUBJECTIVE: She is lying in the bed, head at 45 degrees, sleepy, arousable. Night was unremarkable. Mild cough and shortness of breath. No nausea. No vomiting. No diarrhea. No leg pain or leg swelling. OBJECTIVE/PHYSICAL EXAMINATION GENERAL: In no acute distress. VITAL SIGNS: Temperature is 98, heart rate is 70, respiratory rate is 20, blood pressure is 150/70 and pulse oximetry is 96% on nasal cannula. HEENT: Small oral cavity. Crowded airway. NECK: Supple. No JVD. LUNGS: Have a fair airflow with rhonchi. HEART: S1 and S2. ABDOMEN: Soft and nontender. No organomegaly. EXTREMITIES: There is no edema. NEUROLOGIC: Sleepy, arousable. Follows simple command. MEDICATIONS: She is on Mucomyst 20% inhaled three times a day, Ambien 5 mg at bedtime p.r.n., Colace 100 mg twice a day, Cozaar 50 mg twice a day, trazodone 50 mg at bedtime, doxycycline 100 mg twice a day, DuoNeb four times a day, Keppra 500 mg twice a day, potassium 10 mEq daily, Lasix 20 mg daily, metoprolol tartrate 50 mg twice a day, magnesium oxide 400 mg twice a day, meropenem 1 g IV q. 8 hours, Neurontin 300 mg three times a day, oxycodone, immediate release 15 mg q. 6 hour, Pepcid 20 mg daily, and Tylenol p.r.n. basis. LABORATORY DATA: Shows hemoglobin 9.2, hematocrit 27.7, WBC 5.3, platelet is 88. INR 2.04. Sodium of 145, potassium 3.9, chloride 113, bicarbonate 23, BUN 15, creatinine 0.6, glucose 82, calcium 7.7, magnesium is 2.1. Had abdominal ultrasound done today, which shows enlarged heterogenous and nodular liver consistent with cirrhosis, mild splenomegaly, trace ascites, right upper quadrant, gallbladder sludge. Abdominal aneurysm is about 3.4 cm. IMPRESSION AND PLAN: Sepsis, urinary tract infection, has a extended-spectrum beta-lactamase organism, chronic obstructive lung disease, coronary artery disease, history of coronary stent, hyperlipidemia, cardiac arrhythmia, atrial fibrillation, history of diverticulosis, seizure disorder, anxiety disorder, history of cerebrovascular accident, hepatitis C with cirrhosis, history of hip prosthesis, which is dislocated, also has abdominal aortic aneurysm. Pulmonary point of view, doing okay. Continue antibiotics, bronchodilator. Keep head at 45 degrees. Aspiration precaution. Thank you and we will follow with you. Anushka Barreto MD
--- NOTE | 2017-10-02 00:49 | PN ---
DATE: 10/01/2017 SUBJECTIVE: The patient is in bed in no acute distress. PHYSICAL EXAMINATION: VITAL SIGNS: The patient's temperature is down to 98, the patient did have temperature of 101.5 on admission with a pulse now is 76 and blood pressure is 140/60, respiratory rate 20. HEENT: Unremarkable. NECK: Supple. LUNGS: Decreased breath sounds. HEART: Normal S1 and S2. ABDOMEN: Soft and nontender. LABORATORY DATA: Reveals the patient has a ESBL E. coli in the urine and the blood cultures are negative. Review of the orders reveals the patient is on doxycycline and meropenem. ASSESSMENT AND PLAN: A 76-year-old female with past medical history of coronary artery disease, cardiac stent, high cholesterol, hyperlipidemia, atrial fibrillation, diverticulitis, tonsillectomy, appendectomy admitted with sepsis with extended-spectrum [id number] Escherichia coli in the urine as the source, currently on meropenem. The patient also has abdominal ultrasound and the patient was also seen by Dr. Barreto and Devika Ayoub. The abdominal ultrasound revealed the nodular liver consistent with cirrhosis, mild splenomegaly, gallbladder sludge and I will follow closely with you. Ricardo Burgos MD
[2017-10-02] MEDS: Meropenem IV 1 gm in NS 50 ML IVPB SCH ×3 (05:41→21:31)
[2017-10-02] MEDS: oxyCODONE 15 mg Immediate Release Tab PO PRN (06:52)
[2017-10-02] MEDS: Acetylcysteine 20% Inhal Soln (4ml) IH SCH ×3 (07:31→21:25)
[2017-10-02] MEDS: Albuterol-Ipratrop 3 mg / 0.5 (3 ml) UD IH SCH ×4 (07:31→21:26)
[2017-10-02 07:47] LABS: HEMATOCRIT 30.4 % (36.0-48.0); MEAN CELL VOLUME 88.6 fl (80.0-105.0); MEAN CORPUSCULAR HEMOGLOBIN 28.6 pg (25.0-35.0); MEAN CORPUSCULAR HGB CONC 32.2 g/dl (31.0-37.0); MEAN PLATELET VOLUME 11.1 fl (7.0-11.0); RED CELL DISTRIBUTION WIDTH 16.7 % (11.5-14.5); WHITE BLOOD COUNT 3.5 10^3/ul (4.5-11.0)
[2017-10-02] MEDS: Potassium Chloride 10 mEq ER Tab PO SCH (08:01)
[2017-10-02 08:30] LABS: ALB/GLOB RATIO 0.9 (1.1-1.8); ALKALINE PHOSPHATASE 60 U/L (38-126); ALT/SGPT 31 U/L (7-56); AST/SGOT 41 U/L (14-36); BILIRUBIN,TOTAL 0.7 mg/dL (0.2-1.3); BLOOD UREA NITROGEN 14 mg/dL (7-21); CALCIUM 8.2 mg/dL (8.4-10.5); CARBON DIOXIDE 24 mmol/L (21-33); CHLORIDE 116 mmol/L (98-107); GFR AFRICAN-AMERICAN > 60; GLUCOSE,RANDOM 76 mg/dL (70-110); POTASSIUM 4.3 mmol/L (3.6-5.0); SODIUM 145 mmol/L (132-148)
[2017-10-02] MEDS: Magnesium Oxide 400 mg Tab UD PO SCH ×2 (10:49→17:19)
[2017-10-02] MEDS ORDERED: Acetylcysteine 20% Inhal Soln (4ml) IH SCH (11:03)
[2017-10-02] MEDS: Enoxaparin 40 mg Syringe SC SCH (13:56)
--- NOTE | 2017-10-02 15:13 | CT ---
PROCEDURE: CT scan of the cervical spine dated 10/02/2017. HISTORY: Rule out fracture. COMPARISON: No prior study available for comparison TECHNIQUE: Contiguous helical/transaxial computed tomography images were obtained of the cervical spine without the use of intravenous contrast. Coronal and canal narrowing and compressive effects on the ventral surface of the spinal cord in the lower disc space levels. dose: Total exam DLP = 414.5 MGy-cm. This CT exam was performed using one or more of the following dose reduction techniques: Automated exposure control, adjustment of the mA and/or kV according to patient size, and/or use of iterative reconstruction technique. Note that the examination is limited due to patient rotation and flexion of the cervical spine. FINDINGS: VERTEBRAE: No evidence of acute displaced - compression fractures nor retropulsed fragments. . DISCS/SPINAL CANAL/NEURAL FORAMINA: Mild to moderate multilevel degenerative spondylosis. Changes include varying degrees of disc space narrowing, endplate eburnation and small anterolateral as well as posterior osteophyte formation former larger than latter. Changes most notably affect the C5-C6, C4-C5 and C6-C7 levels. Lesser changes seen at the remaining levels. The changes appear to result in some mild addition, there are varying degrees of bilateral foraminal narrowing. . PARASPINAL SOFT TISSUES: Prevertebral and paraspinal soft tissues grossly unremarkable. OTHER FINDINGS: Vascular calcifications are present. In elliptical shaped approximately 11.7 x 6.5 mm low-attenuation lesion within the left lobe of the thyroid gland. Thyroid ultrasound followup recommended. Mild biapical pleural thickening. Moderate-large size left a left-sided effusion. Please refer to prior CT scan of the abdomen pelvis and chest radiograph dated 09/29/2017 and 09/28/2017 respectively. IMPRESSION: Limited study as described. No evidence of acute fractures. Mild multilevel degenerative spondylosis Low-attenuation lesion left lobe thyroid gland. Recommend followup thyroid ultrasound.
--- NOTE | 2017-10-02 16:13 | CP.PCM.PN ---
<Devika Ayoub - Last Filed: 10/02/17 16:13> Subjective - Date & Time of Evaluation Date of Evaluation: 10/02/17 Time of Evaluation: 10:35 - Subjective Subjective: S&E at bedside, abdominal pain better, no N/V or overt GI bleeding. No c/o diarrhea. Patient is more awake and alert. Going to be seen by PT team. Objective - Vital Signs/Intake and Output Vital Signs (last 24 hours): Temp Pulse Resp BP Pulse Ox 98.6 F 72 20 168/65 H 95 10/02/17 08:00 10/02/17 10:49 10/02/17 08:00 10/02/17 10:49 10/02/17 08:00 Intake and Output: 10/02/17 10/02/17 06:59 18:59 Intake Total 240 Output Total 1100 600 Balance -860 -600 - Medications Medications: Current Medications Acetaminophen (Tylenol 325mg Tab) 650 mg PO Q4H PRN PRN Reason: Temperature Acetylcysteine (Acetylcysteine 20%) 1 ml IH QIDRESP [facility] Last Admin: 10/02/17 15:00 Dose: 1 ml Albuterol/Ipratropium (Duoneb 3 Mg/0.5 Mg (3 Ml) Ud) 3 ml IH QIDRESP [facility] Last Admin: 10/02/17 15:01 Dose: 3 ml Docusate Sodium (Colace) 100 mg PO BID [facility] Last Admin: 10/02/17 10:49 Dose: 100 mg Enoxaparin Sodium (Lovenox) 40 mg SC DAILY [facility] PRN Reason: Protocol Last Admin: 10/02/17 13:56 Dose: 40 mg Famotidine (Pepcid) 20 mg PO DAILY [facility] Last Admin: 10/02/17 10:49 Dose: 20 mg Furosemide (Lasix) 20 mg PO DAILY [facility] Last Admin: 10/02/17 10:49 Dose: 20 mg Gabapentin (Neurontin) 300 mg PO TID [facility] PRN Reason: Protocol Last Admin: 10/02/17 13:55 Dose: 300 mg Doxycycline Hyclate 100 mg/ (Sodium Chloride) 100 mls @ 100 mls/hr IVPB Q12 [facility] PRN Reason: Protocol Stop: 10/09/17 22:01 Last Admin: 10/02/17 10:51 Dose: 100 mls/hr Meropenem (Merrem Iv 1 Gm Premix) 50 mls @ 100 mls/hr IVPB Q8 [facility] PRN Reason: Protocol Stop: 10/09/17 22:01 Last Admin: 10/02/17 13:57 Dose: 100 mls/hr Levetiracetam (Keppra) 500 mg PO BID [facility] Last Admin: 10/02/17 10:49 Dose: 500 mg Losartan Potassium (Cozaar) 50 mg PO BID [facility] Last Admin: 10/02/17 10:49 Dose: 50 mg Magnesium Oxide (Mag-Ox) 400 mg PO BID [facility] Last Admin: 10/02/17 10:49 Dose: 400 mg Metoprolol Tartrate (Lopressor) 50 mg PO BRKDIN [facility] Last Admin: 10/02/17 08:12 Dose: 50 mg Oxycodone HCl (Oxycodone Immediate Release Tab) 15 mg PO Q6H PRN PRN Reason: Pain, moderate (4-7) Last Admin: 10/02/17 06:52 Dose: 15 mg Potassium Chloride (Klor-Con 10) 10 meq PO BRK [facility] Last Admin: 10/02/17 08:01 Dose: 10 meq Trazodone HCl (Desyrel) 50 mg PO HS [facility] Last Admin: 10/01/17 21:41 Dose: 50 mg Zolpidem Tartrate (Ambien) 5 mg PO HS PRN PRN Reason: Insomnia - Labs Labs: 10/02/17 07:15 10/02/17 07:15 PT 26.9 SECONDS (9.4-12.5) H 10/01/17 07:30 INR 2.40 (0.93-1.08) H 10/01/17 07:30 APTT 49.7 Seconds (25.1-36.5) H 09/28/17 22:00 - Constitutional Appears: No Acute Distress - Eye Exam Eye Exam: Normal appearance - ENT Exam ENT Exam: Mucous Membranes Moist - Neck Exam Neck Exam: Normal Inspection - Respiratory Exam Respiratory Exam: NORMAL BREATHING PATTERN. absent: Respiratory Distress - Cardiovascular Exam Cardiovascular Exam: +S1, +S2 - GI/Abdominal Exam GI & Abdominal Exam: Soft, Normal Bowel Sounds. absent: Guarding, Tenderness, Rebound - Neurological Exam Neurological Exam: Alert, Awake, Oriented x3 Additional comments: left sided weakness, h/o CVA - Skin Skin Exam: Dry, Warm Assessment and Plan - Assessment and Plan (Free Text) Assessment: Assessment: Fever/sepsis/pneumonia, other differentials, SBP Left quadrant abdominal pain could be contributed to left hip prosthesis dislocation Diarrhea, r/o C diff Status post abdominal ultrasound, gallbladder sludge, no evidence of cholecystitis UTI Liver cirrhosis with ascites Chronic hepatitis C CVA with left-sided weakness Hypertension COPD Coagulopathy Left hip prosthesis dislocation Plan: On IV antibiotics as per ID Continue Colace diet as tolerated, on puree Continue Pepcid for GI prophylaxis On Lasix On pain medication stool cdiff pending plan for TCU evaluated by surgery Seen and discussed with Dr. Galindo. <Maeve Galindo V - Last Filed: 10/02/17 23:32> Objective - Vital Signs/Intake and Output Vital Signs (last 24 hours): Temp Pulse Resp BP Pulse Ox 98.6 F 72 20 152/65 H 95 10/02/17 08:00 10/02/17 10:49 10/02/17 08:00 10/02/17 17:52 10/02/17 08:00 Intake and Output: 10/02/17 10/03/17 18:59 06:59 Intake Total 240 Output Total 600 600 Balance -600 -360 - Medications Medications: Current Medications Acetaminophen (Tylenol 325mg Tab) 650 mg PO Q4H PRN PRN Reason: Temperature Acetylcysteine (Acetylcysteine 20%) 1 ml IH QIDRESP [facility] Last Admin: 10/02/17 21:25 Dose: 1 ml Albuterol/Ipratropium (Duoneb 3 Mg/0.5 Mg (3 Ml) Ud) 3 ml IH QIDRESP [facility] Last Admin: 10/02/17 21:26 Dose: 3 ml Docusate Sodium (Colace) 100 mg PO BID [facility] Last Admin: 10/02/17 17:19 Dose: 100 mg Enoxaparin Sodium (Lovenox) 40 mg SC DAILY [facility] PRN Reason: Protocol Last Admin: 10/02/17 13:56 Dose: 40 mg Famotidine (Pepcid) 20 mg PO DAILY [facility] Last Admin: 10/02/17 10:49 Dose: 20 mg Furosemide (Lasix) 20 mg PO DAILY [facility] Last Admin: 10/02/17 10:49 Dose: 20 mg Gabapentin (Neurontin) 300 mg PO TID [facility] PRN Reason: Protocol Last Admin: 10/02/17 18:26 Dose: 300 mg Doxycycline Hyclate 100 mg/ (Sodium Chloride) 100 mls @ 100 mls/hr IVPB Q12 [facility] PRN Reason: Protocol Stop: 10/09/17 22:01 Last Admin: 10/02/17 21:31 Dose: 100 mls/hr Meropenem (Merrem Iv 1 Gm Premix) 50 mls @ 100 mls/hr IVPB Q8 [facility] PRN Reason: Protocol Stop: 10/09/17 22:01 Last Admin: 10/02/17 21:31 Dose: 100 mls/hr Levetiracetam (Keppra) 500 mg PO BID [facility] Last Admin: 10/02/17 18:26 Dose: 500 mg Losartan Potassium (Cozaar) 50 mg PO BID [facility] Last Admin: 10/02/17 17:19 Dose: 50 mg Magnesium Oxide (Mag-Ox) 400 mg PO BID [facility] Last Admin: 10/02/17 17:19 Dose: 400 mg Metoprolol Tartrate (Lopressor) 50 mg PO BRKDIN [facility] Last Admin: 10/02/17 17:19 Dose: 50 mg Oxycodone HCl (Oxycodone Immediate Release Tab) 15 mg PO Q6H PRN PRN Reason: Pain, moderate (4-7) Last Admin: 10/02/17 06:52 Dose: 15 mg Potassium Chloride (Klor-Con 10) 10 meq PO BRK [facility] Last Admin: 10/02/17 08:01 Dose: 10 meq Trazodone HCl (Desyrel) 50 mg PO HS [facility] Last Admin: 10/02/17 21:31 Dose: 50 mg Zolpidem Tartrate (Ambien) 5 mg PO HS PRN PRN Reason: Insomnia - Labs Labs: 10/02/17 07:15 10/02/17 07:15 PT 26.9 SECONDS (9.4-12.5) H 10/01/17 07:30 INR 2.40 (0.93-1.08) H 10/01/17 07:30 APTT 49.7 Seconds (25.1-36.5) H 09/28/17 22:00 Attending/Attestation - Attestation I have personally seen and examined this patient.: Yes I have fully participated in the care of the patient.: Yes I have reviewed all pertinent clinical information, including history, physical exam and plan: Yes Notes (Text): This is an addendum to GI progress report dictated by Devika Ayoub APN.The patient was seen and examined earlier. Medical records, lab studies, imagings were reviewed. Last 24 hours events reviewed. Agreed with the above treatment plan as outlined in Devika Ayoub APN's notes the with the addition of the following On examination abdomen soft with mild tenderness present in the lower abdomen mainly towards the left side Left leg appears to still be rotated hip. Joint supplementation Discussed with the nursing staff who expressed that the family wants only conservative management Continue antibiotics as per ID for ESBL UTI 10/02/17 23:31
--- NOTE | 2017-10-02 16:27 | CP.PCM.PN ---
Subjective - Date & Time of Evaluation Date of Evaluation: 10/02/17 Time of Evaluation: 16:23 - Subjective Subjective: Podiatry Progress Note- Dr. Arteaga 76 y.o female seen at bedside with attending for L heel ulceration and R heel DTI. Patient is seen resting comfortably in bed, in NAD, and AA0x3. Dressing is clean, dry, intact. Pillow boots were seen on during visitation. No other new pedal complaints at this time. Objective - Vital Signs/Intake and Output Vital Signs (last 24 hours): Temp Pulse Resp BP Pulse Ox 98.6 F 72 20 168/65 H 95 10/02/17 08:00 10/02/17 10:49 10/02/17 08:00 10/02/17 10:49 10/02/17 08:00 Intake and Output: 10/02/17 10/02/17 06:59 18:59 Intake Total 240 Output Total 1100 600 Balance -860 -600 - Medications Medications: Current Medications Acetaminophen (Tylenol 325mg Tab) 650 mg PO Q4H PRN PRN Reason: Temperature Acetylcysteine (Acetylcysteine 20%) 1 ml IH QIDRESP [facility] Last Admin: 10/02/17 15:00 Dose: 1 ml Albuterol/Ipratropium (Duoneb 3 Mg/0.5 Mg (3 Ml) Ud) 3 ml IH QIDRESP [facility] Last Admin: 10/02/17 15:01 Dose: 3 ml Docusate Sodium (Colace) 100 mg PO BID [facility] Last Admin: 10/02/17 10:49 Dose: 100 mg Enoxaparin Sodium (Lovenox) 40 mg SC DAILY [facility] PRN Reason: Protocol Last Admin: 10/02/17 13:56 Dose: 40 mg Famotidine (Pepcid) 20 mg PO DAILY [facility] Last Admin: 10/02/17 10:49 Dose: 20 mg Furosemide (Lasix) 20 mg PO DAILY [facility] Last Admin: 10/02/17 10:49 Dose: 20 mg Gabapentin (Neurontin) 300 mg PO TID [facility] PRN Reason: Protocol Last Admin: 10/02/17 13:55 Dose: 300 mg Doxycycline Hyclate 100 mg/ (Sodium Chloride) 100 mls @ 100 mls/hr IVPB Q12 [facility] PRN Reason: Protocol Stop: 10/09/17 22:01 Last Admin: 10/02/17 10:51 Dose: 100 mls/hr Meropenem (Merrem Iv 1 Gm Premix) 50 mls @ 100 mls/hr IVPB Q8 [facility] PRN Reason: Protocol Stop: 10/09/17 22:01 Last Admin: 10/02/17 13:57 Dose: 100 mls/hr Levetiracetam (Keppra) 500 mg PO BID [facility] Last Admin: 10/02/17 10:49 Dose: 500 mg Losartan Potassium (Cozaar) 50 mg PO BID [facility] Last Admin: 10/02/17 10:49 Dose: 50 mg Magnesium Oxide (Mag-Ox) 400 mg PO BID [facility] Last Admin: 10/02/17 10:49 Dose: 400 mg Metoprolol Tartrate (Lopressor) 50 mg PO BRKDIN [facility] Last Admin: 10/02/17 08:12 Dose: 50 mg Oxycodone HCl (Oxycodone Immediate Release Tab) 15 mg PO Q6H PRN PRN Reason: Pain, moderate (4-7) Last Admin: 10/02/17 06:52 Dose: 15 mg Potassium Chloride (Klor-Con 10) 10 meq PO BRK [facility] Last Admin: 10/02/17 08:01 Dose: 10 meq Trazodone HCl (Desyrel) 50 mg PO HS [facility] Last Admin: 10/01/17 21:41 Dose: 50 mg Zolpidem Tartrate (Ambien) 5 mg PO HS PRN PRN Reason: Insomnia - Labs Labs: 10/02/17 07:15 10/02/17 07:15 PT 26.9 SECONDS (9.4-12.5) H 10/01/17 07:30 INR 2.40 (0.93-1.08) H 10/01/17 07:30 APTT 49.7 Seconds (25.1-36.5) H 09/28/17 22:00 - Constitutional Appears: Well, Non-toxic, No Acute Distress - Extremities Exam Additional comments: Vasc: pedal pulses are nonpalpable bilaterally, CFT is delayed x10 digits, temperature gradient is cool to cool Ortho: Tender to palpation of the LE Neuro: gross and protective sensation diminished Derm: L Ulceration with ulceration to the heel measuring approximately 1 x 1 x .1 secondary to deep tissue injury with surrounding ecchymosis noted. No malodo , no probe to bone, no active drainage, no cellulitic changes, no clinical signs of infection; R heel with old bruising to the dorsolateral aspect of right foot. No clinical signs of infection - Neurological Exam Neurological Exam: Awake - Psychiatric Exam Psychiatric exam: Normal Affect, Normal Mood Assessment and Plan - Assessment and Plan (Free Text) Assessment: 76 y.o female with L heel ulceration, stage II, secondary to DTI and R heel DTI Plan: Patient examined and evaluated with attending, Dr. Arteaga Labs, charts, vitals reviewed Discussed plan in detail with attending, Dr. Arteaga Will order multipodus boots to offload LE Current pillow boots is no sufficient for patient to offload LE at this time -will need longer multipodus boots to offload LE Cleansed heels with saline, dried with gauze, and dressed with Optifoam. Re-applied pillow boots until mulipodus boots is ordered Will continue to follow while in house
--- NOTE | 2017-10-02 23:23 | PN ---
DATE: 10/02/2017 SUBJECTIVE: The patient is in bed, in no acute distress, nontoxic. OBJECTIVE: VITAL SIGNS: When I examined, the patient's temperature is 98, blood pressure is 160/60, respiratory rate 20, heart rate of 59. HEENT: Unremarkable. NECK: Supple. LUNGS: Decreased breath sounds. HEART: Normal S1, S2. ABDOMEN: Soft, nontender. LABORATORY DATA: Reveals a white count of 3.5, hemoglobin of 9. BUN of 14, creatinine of 0.6. Chemistries are noted. Cultures are reviewed. E. Coli in the urine. Blood cultures are negative. Urine culture is ESBL. ASSESSMENT AND PLAN: This is a 76-year-old female with history of coronary artery disease, cardiac stents, high cholesterol, hyperlipidemia, atrial fibrillation, diverticulitis, tonsillectomy, appendectomy, sepsis with Extended-spectrum beta-lactamase producing Escherichia coli in urine, currently on meropenem and the patient is also on doxycycline IV. We will check on the stool for Clostridium difficile and we will make further recommendations. Ricardo Burgos MD
--- NOTE | 2017-10-02 23:43 | PN ---
DATE: 10/02/2017 PULMONARY PROGRESS NOTE REFERRING PHYSICIAN: Albin Forte MD SUBJECTIVE: She is lying in the bed, comfortable, has some cough, daughter is at bedside. No nausea. No vomiting. No chest pain. No abdominal pain. No dysuria. No leg pain, has some hip discomfort. OBJECTIVE: GENERAL: No acute distress. VITAL SIGNS: Temp is 98, heart rate is 72, respiratory rate is 20, blood pressure 152/65 and pulse oximetry is 95% on 2 L of nasal cannula. HEENT: Moist mucous membrane. Some crowded airway. NECK: Supple. No JVD. LUNGS: Have few scattered rhonchi. HEART: S1 and S2. ABDOMEN: Soft, nontender. No organomegaly. EXTREMITIES: No edema. NEUROLOGIC: Awake, alert and follows simple command. MEDICATIONS: She is on Mucomyst 20% inhaled four times a day, Ambien 5 mg at bedtime p.r.n., Colace 100 mg twice a day, Cozaar 50 mg twice a day, trazodone 50 mg at bedtime, doxycycline 100 mg twice a day, DuoNeb four times a day round the clock, Keppra 500 mg twice a day, potassium 10 mEq daily, Lasix 20 mg daily, metoprolol tartrate 50 mg twice a day, Lovenox 40 mg daily, magnesium oxide 400 mg twice a day, meropenem 1 g IV q. 8 hours, gabapentin 300 mg three times a day, oxycodone immediate release 15 mg q. 6 hours p.r.n., Pepcid 20 mg daily, and Tylenol p.r.n. basis. LABORATORY DATA: Shows hemoglobin 9.8, hematocrit 30.4, WBC 3.5, platelet count is 83. Sodium 145, potassium 4.3, chloride 116, bicarbonate 24, BUN 14, creatinine 0.6, glucose is 76, calcium 8.2, AST 41, ALT 31, alk phos is 61, and albumin is 2.4. Urine has E coli which is ESBL. Blood culture has been negative. Has a cervical spine x-ray done which shows limited study. No evidence of acute fracture, mild multilevel degenerative joint disease. IMPRESSION AND PLAN: Sepsis, urinary tract infection, and also has some pulmonary infiltrate, may have component of pneumonia, chronic obstructive lung disease, coronary artery disease, history of coronary stent, hyperlipidemia, cardiac arrhythmia, atrial fibrillation, history of diverticulosis, seizure disorder, anxiety disorder, history of cerebrovascular accident, hepatitis C with cirrhosis, some ascites, and dislocation of hip prosthesis. Spoke to the patient's daughter at bedside and all the questions answered. Pulmonary point of view, continue bronchodilator. Keep head at 45 degrees. Aspiration precaution. Continue antibiotics as per Infectious Disease. Orthopedic consult. Thank you and we will follow with you. Anushka Barreto MD
--- NOTE | 2017-10-03 02:58 | CON ---
HISTORY OF PRESENT ILLNESS: This is a 76-year-old female with past medical history of CVA with left-sided weakness from a stroke, atrial fibrillation, seizure disorder, and aortic aneurysm status post stent, hypertension, anemia, COPD, came to the emergency room with fever and also vomiting and diarrhea as per daughter and vague abdominal discomfort. Patient has been in the hospital since they called today for her neck evaluation. The patient was seen by Dr. Burgos and treated for sepsis and also seen by Dr. Barreto. Patient has abdominal ultrasound that shows nodular liver consistent with cirrhosis. CAT scan of the neck was done which did not show any disk disease. No doubt it was limited, but degenerative spondylosis changes are seen at C5, C6, and C7. Daughter is at bedside. Patient is aphasic and does not answer any question, open eyes to verbal commands, and no movement of either extremities noted and called to evaluate the patient. Patient also has hip dislocation and CAT scan shows dislocated left hip prosthesis and that is why patient cannot move in the bed. PHYSICAL EXAMINATION: HEENT: Normocephalic and atraumatic. NECK: Supple. NEUROLOGIC: Awake, open eyes, aphasic, does not follow any simple commands. No facial asymmetry. Tongue midline. Motor examination, no spontaneous movements of the extremities noted. ASSESSMENT AND PLAN: Patient has multiple medical problems, had a stroke with left-sided residual weakness and also has dislocated left hip and also sepsis. CAT scan of the neck was done which was limited but did not show any herniated disk, only spondylitic changes was seen. Patient had MRI of the head a year ago, which shows encephalomalacia of the right cerebral hemisphere. Workup in progress. Continue present management. We will follow up. Magdiel Bernstein MD
[2017-10-03] MEDS: Meropenem IV 1 gm in NS 50 ML IVPB SCH ×3 (05:19→22:47)
[2017-10-03 07:52] LABS: INR 1.61 (0.93-1.08)
[2017-10-03] MEDS: Acetylcysteine 20% Inhal Soln (4ml) IH SCH ×4 (08:09→19:31)
[2017-10-03] MEDS: Albuterol-Ipratrop 3 mg / 0.5 (3 ml) UD IH SCH ×4 (08:10→19:31)
[2017-10-03] MEDS: Potassium Chloride 10 mEq ER Tab PO SCH (08:11)
--- NOTE | 2017-10-03 08:45 | PN ---
DATE: 10/01/2017 SUBJECTIVE: A 76-year-old female was admitted for fever of 102. The patient in the floor. She is bedridden. She seems comfortable in the bed, no distress. Has no fever. Clinically stable. Has no new complaints. PHYSICAL EXAMINATION: VITAL SIGNS: On 10/01/2017, temperature 98, heart rate 76, blood pressure 128/68, respiratory rate 20, and saturation 98% on room air. HEAD AND NECK: Normal. No JVD. No thyromegaly. CHEST: Clear. Poor inspiratory effort. CARDIAC: First sound and second normal. ABDOMEN: Soft. There is mild general tenderness. EXTREMITIES: No edema. NEUROLOGIC: She is bedridden. Both legs are weak and do not move. She has pillows and cushions in the heel area to protect from sacral decubitus. She does have left arm weakness from stroke. Otherwise, she is awake, alert, and oriented to the place and to the person. LABORATORY STUDIES: On the shows, white count , hematocrit 27.7, and platelets 88. Chemistry shows sodium 141, potassium 3.9, chloride 116, bicarbonate 23, BUN 16, creatinine 0.6, calcium 7.7, and magnesium 2.1. IMPRESSION AND PLAN: 1. Urosepsis: The patient has urinary tract infections and she was given meropenem IV q.[address] Bugros has seen the patient. She also has pneumonia plus chronic obstructive pulmonary disease. 2. Acute community-acquired pneumonia with chronic obstructive pulmonary disease: Continue doxycycline and meropenem. Continue inhaled bronchodilator. Dr. Barreto, pulmonary consult, will evaluate the patient. Continue Mucomyst and chest CT. 3. Hypertension: The patient's current blood pressure stable on Cozaar 50 mg b.i.d. She is also stable on metoprolol 50 mg b.i.d. She is stable and she is currently on Lasix 20 plus potassium 10 every day. 4. Chronic . She has cirrhosis of the liver, ascites, and thrombocytopenia. A GI consult ordered for evaluations and for further treatment if possible for her chronic conditions. 5. History of seizure disorder seems stable. No seizure at this time. She is on Keppra 500 mg b.i.d.. At this time, continue current therapy. Follow up clinically. Current medication the patient getting is Mucomyst, Ambien, Colace, Cozaar 50 b.i.d., trazodone 50 at bedtime, doxycycline, nebulizer DuoNeb, Keppra 500 b.i.d., potassium 10, Lasix 20 daily both, Lopressor 50 b.i.d., magnesium oxide, meropenem, Neurontin 300 t.i.d., oxycodone 50 mg q.6 hours, Pepcid 20 p.o. daily, and Tylenol 650 q.4 hours. Continue current therapy. Follow up clinically. Albin Forte MD
[2017-10-03] MEDS: Magnesium Oxide 400 mg Tab UD PO SCH ×2 (10:35→18:53)
[2017-10-03] MEDS: Enoxaparin 40 mg Syringe SC SCH (11:13)
--- NOTE | 2017-10-03 14:40 | US ---
HISTORY: goitre TECHNIQUE: Sonographic evaluation of the thyroid gland. COMPARISON: None. FINDINGS: RIGHT LOBE: Measures 4.2 x 1.2 x 1.3 cm. Normal echotexture and flow. Nodules: Lower pole complex mixed cystic and solid nodule with increased vascularity measuring 0.6 x 0.8 x 0.5 centimeter. LEFT LOBE: Measures 4.0 x 1.5 x 1.6 cm. Normal echotexture and flow. Nodules: Upper pole mixed cystic and solid nodule measuring 1.3 x 1.3 x 1.2 centimeter. Midpole 0.5 x 0.3 x 0.4 centimeters cystic nodule with peripheral punctate echogenic focus. ISTHMUS: Measures 0.3 cm. Normal echotexture and flow. Nodules: None OTHER FINDINGS: None . IMPRESSION: Left upper pole mixed cystic and solid nodule measuring up to 1.3 centimeter. Right lower pole mixed cystic and solid nodule with increased vascularity measuring up to 0.8 centimeter.
--- NOTE | 2017-10-03 14:59 | CP.PCM.PN ---
<Devika Ayoub - Last Filed: 10/03/17 14:58> Subjective - Date & Time of Evaluation Date of Evaluation: 10/03/17 Time of Evaluation: 11:00 - Subjective Subjective: Seen and examined at the bedside earlier today, chart reviewed. No acute overnight events reported. No reports of diarrhea or overt GI bleed. Patient denies abdominal pain at this time. Objective - Vital Signs/Intake and Output Vital Signs (last 24 hours): Temp Pulse Resp BP Pulse Ox 98.3 F 86 20 189/70 H 97 10/03/17 08:46 10/03/17 08:46 10/03/17 08:46 10/03/17 11:12 10/03/17 08:46 Intake and Output: 10/03/17 10/03/17 06:59 18:59 Intake Total 360 Output Total 1000 Balance -640 - Medications Medications: Current Medications Acetaminophen (Tylenol 325mg Tab) 650 mg PO Q4H PRN PRN Reason: Temperature Acetylcysteine (Acetylcysteine 20%) 1 ml IH QIDRESP [facility] Last Admin: 10/03/17 11:38 Dose: 1 ml Albuterol/Ipratropium (Duoneb 3 Mg/0.5 Mg (3 Ml) Ud) 3 ml IH QIDRESP [facility] Last Admin: 10/03/17 11:38 Dose: 3 ml Docusate Sodium (Colace) 100 mg PO BID [facility] Last Admin: 10/03/17 10:35 Dose: 100 mg Enoxaparin Sodium (Lovenox) 40 mg SC DAILY [facility] PRN Reason: Protocol Last Admin: 10/03/17 11:13 Dose: 40 mg Famotidine (Pepcid) 20 mg PO DAILY [facility] Last Admin: 10/03/17 10:35 Dose: 20 mg Furosemide (Lasix) 20 mg PO DAILY [facility] Last Admin: 10/03/17 11:12 Dose: 20 mg Gabapentin (Neurontin) 300 mg PO TID [facility] PRN Reason: Protocol Last Admin: 10/03/17 10:35 Dose: 300 mg Doxycycline Hyclate 100 mg/ (Sodium Chloride) 100 mls @ 100 mls/hr IVPB Q12 [facility] PRN Reason: Protocol Stop: 10/09/17 22:01 Last Admin: 10/03/17 10:35 Dose: 100 mls/hr Meropenem (Merrem Iv 1 Gm Premix) 50 mls @ 100 mls/hr IVPB Q8 [facility] PRN Reason: Protocol Stop: 10/09/17 22:01 Last Admin: 10/03/17 05:19 Dose: 100 mls/hr Levetiracetam (Keppra) 500 mg PO BID [facility] Last Admin: 10/03/17 10:35 Dose: 500 mg Losartan Potassium (Cozaar) 50 mg PO BID [facility] Last Admin: 10/03/17 10:35 Dose: 50 mg Magnesium Oxide (Mag-Ox) 400 mg PO BID [facility] Last Admin: 10/03/17 10:35 Dose: 400 mg Metoprolol Tartrate (Lopressor) 50 mg PO BRKDIN [facility] Last Admin: 10/03/17 08:11 Dose: 50 mg Potassium Chloride (Klor-Con 10) 10 meq PO BRK [facility] Last Admin: 10/03/17 08:11 Dose: 10 meq Trazodone HCl (Desyrel) 50 mg PO HS [facility] Last Admin: 10/02/17 21:31 Dose: 50 mg Zolpidem Tartrate (Ambien) 5 mg PO HS PRN PRN Reason: Insomnia - Labs Labs: 10/02/17 07:15 10/02/17 07:15 PT 17.9 SECONDS (9.4-12.5) H 10/03/17 07:00 INR 1.61 (0.93-1.08) H 10/03/17 07:00 APTT 49.7 Seconds (25.1-36.5) H 09/28/17 22:00 - Constitutional Appears: No Acute Distress - Eye Exam Eye Exam: Normal appearance - ENT Exam ENT Exam: Mucous Membranes Moist - Neck Exam Neck Exam: Normal Inspection - Respiratory Exam Respiratory Exam: Decreased Breath Sounds, NORMAL BREATHING PATTERN. absent: Respiratory Distress - Cardiovascular Exam Cardiovascular Exam: +S1, +S2 - GI/Abdominal Exam GI & Abdominal Exam: Soft, Normal Bowel Sounds. absent: Guarding, Tenderness, Rebound - Extremities Exam Additional comments: left-sided weakness, left arm noted to be edematous, positive pedal edema - Neurological Exam Neurological Exam: Awake - Skin Skin Exam: Dry, Warm Assessment and Plan - Assessment and Plan (Free Text) Assessment: Assessment: Fever/sepsis/pneumonia, other differentials, SBP Left quadrant abdominal pain could be contributed to left hip prosthesis dislocation, pain has improved Diarrhea, r/o C diff Status post abdominal ultrasound, gallbladder sludge, no evidence of cholecystitis UTI Liver cirrhosis with ascites Chronic hepatitis C CVA with left-sided weakness Hypertension COPD Coagulopathy Left hip prosthesis dislocation Plan: On IV antibiotics as per ID Continue Colace diet as tolerated, on puree Continue Pepcid for GI prophylaxis On Lasix On pain medication stool cdiff pending Seen and discussed with Dr. Galindo. <Maeve Galindo V - Last Filed: 10/04/17 01:48> Objective - Vital Signs/Intake and Output Vital Signs (last 24 hours): Temp Pulse Resp BP Pulse Ox 100.5 F H 73 20 159/73 H 97 10/03/17 18:53 10/03/17 18:44 10/03/17 08:46 10/03/17 18:44 10/03/17 08:46 Intake and Output: 10/03/17 10/04/17 18:59 06:59 Intake Total 240 Output Total 1200 Balance -960 - Medications Medications: Current Medications Acetaminophen (Tylenol 325mg Tab) 650 mg PO Q4H PRN PRN Reason: Temperature Last Admin: 10/03/17 18:53 Dose: 650 mg Acetylcysteine (Acetylcysteine 20%) 1 ml IH QIDRESP [facility] Last Admin: 10/03/17 19:31 Dose: 1 ml Albuterol/Ipratropium (Duoneb 3 Mg/0.5 Mg (3 Ml) Ud) 3 ml IH QIDRESP [facility] Last Admin: 10/03/17 19:31 Dose: 3 ml Amlodipine Besylate (Norvasc) 5 mg PO DAILY [facility] Clonazepam (Klonopin) 1 mg PO BID PRN PRN Reason: Systolic Blood Pressure Docusate Sodium (Colace) 100 mg PO BID [facility] Last Admin: 10/03/17 18:44 Dose: Not Given Doxycycline Hyclate (Doryx) 100 mg PO Q12 [facility] PRN Reason: Protocol Stop: 10/12/17 22:01 Last Admin: 10/03/17 22:47 Dose: 100 mg Enoxaparin Sodium (Lovenox) 60 mg SC Q12H [facility] PRN Reason: Protocol Last Admin: 10/03/17 22:47 Dose: 60 mg Famotidine (Pepcid) 20 mg PO DAILY [facility] Last Admin: 10/03/17 10:35 Dose: 20 mg Furosemide (Lasix) 20 mg PO DAILY [facility] Last Admin: 10/03/17 11:12 Dose: 20 mg Gabapentin (Neurontin) 300 mg PO TID [facility] PRN Reason: Protocol Last Admin: 10/03/17 18:52 Dose: 300 mg Meropenem (Merrem Iv 1 Gm Premix) 50 mls @ 100 mls/hr IVPB Q8 [facility] PRN Reason: Protocol Stop: 10/09/17 22:01 Last Admin: 10/03/17 22:47 Dose: 100 mls/hr Levetiracetam (Keppra) 500 mg PO BID [facility] Last Admin: 10/03/17 18:53 Dose: 500 mg Losartan Potassium (Cozaar) 50 mg PO BID [facility] Last Admin: 10/03/17 18:44 Dose: 50 mg Magnesium Oxide (Mag-Ox) 400 mg PO BID [facility] Last Admin: 10/03/17 18:53 Dose: 400 mg Metoprolol Tartrate (Lopressor) 50 mg PO BRKDIN [facility] Last Admin: 10/03/17 18:53 Dose: 50 mg Potassium Chloride (Klor-Con 10) 10 meq PO BRK [facility] Last Admin: 10/03/17 08:11 Dose: 10 meq Trazodone HCl (Desyrel) 50 mg PO HS [facility] Last Admin: 10/03/17 22:47 Dose: 50 mg Zolpidem Tartrate (Ambien) 5 mg PO HS PRN PRN Reason: Insomnia - Labs Labs: 10/02/17 07:15 10/02/17 07:15 PT 17.9 SECONDS (9.4-12.5) H 10/03/17 07:00 INR 1.61 (0.93-1.08) H 10/03/17 07:00 APTT 49.7 Seconds (25.1-36.5) H 09/28/17 22:00 Attending/Attestation - Attestation I have personally seen and examined this patient.: Yes I have fully participated in the care of the patient.: Yes I have reviewed all pertinent clinical information, including history, physical exam and plan: Yes Notes (Text): This is an addendum to GI progress report dictated by Devika Ayoub APN.The patient was seen and examined earlier. Medical records, lab studies, imagings were reviewed. Last 24 hours events reviewed. Agreed with the above treatment plan as outlined in Devika Ayoub APN's notes the with the addition of the following This patient is a multiple comorbidities ESBL UTI abdominal discomfort mainly in the lower abdomen and gallbladder sludge clinically not suggestive of [place] pathology see her for chronic hepatitis C on examination abdomen soft with mild tenderness present in the suprapubic right and left lower quadrant pain and lower quadrant. The left leg appears to be internally rotated has a left hip subluxation Continue the antibiotics as per ID check the stool for C. difficile t 10/04/17 01:46
--- NOTE | 2017-10-03 16:29 | CP.PCM.PN ---
<Audie Reyes - Last Filed: 10/03/17 16:25> Subjective - Date & Time of Evaluation Date of Evaluation: 10/03/17 Time of Evaluation: 11:15 - Subjective Subjective: Podiatry Progress Note- Dr. Barger 76 y.o female seen at bedside with attending for L heel ulceration and R heel DTI. Patient is seen resting comfortably in bed, in NAD, and AA0x3. Dressing is clean, dry, intact. Multipodus boots were seen on during visitation. No other new pedal complaints at this time. Objective - Vital Signs/Intake and Output Vital Signs (last 24 hours): Temp Pulse Resp BP Pulse Ox 98.3 F 86 20 189/70 H 97 10/03/17 08:46 10/03/17 08:46 10/03/17 08:46 10/03/17 11:12 10/03/17 08:46 Intake and Output: 10/03/17 10/03/17 06:59 18:59 Intake Total 360 Output Total 1000 Balance -640 - Medications Medications: Current Medications Acetaminophen (Tylenol 325mg Tab) 650 mg PO Q4H PRN PRN Reason: Temperature Acetylcysteine (Acetylcysteine 20%) 1 ml IH QIDRESP [facility] Last Admin: 10/03/17 16:05 Dose: 1 ml Albuterol/Ipratropium (Duoneb 3 Mg/0.5 Mg (3 Ml) Ud) 3 ml IH QIDRESP [facility] Last Admin: 10/03/17 16:05 Dose: 3 ml Docusate Sodium (Colace) 100 mg PO BID [facility] Last Admin: 10/03/17 10:35 Dose: 100 mg Enoxaparin Sodium (Lovenox) 40 mg SC DAILY [facility] PRN Reason: Protocol Last Admin: 10/03/17 11:13 Dose: 40 mg Famotidine (Pepcid) 20 mg PO DAILY [facility] Last Admin: 10/03/17 10:35 Dose: 20 mg Furosemide (Lasix) 20 mg PO DAILY [facility] Last Admin: 10/03/17 11:12 Dose: 20 mg Gabapentin (Neurontin) 300 mg PO TID [facility] PRN Reason: Protocol Last Admin: 10/03/17 15:05 Dose: 300 mg Doxycycline Hyclate 100 mg/ (Sodium Chloride) 100 mls @ 100 mls/hr IVPB Q12 [facility] PRN Reason: Protocol Stop: 10/09/17 22:01 Last Admin: 10/03/17 10:35 Dose: 100 mls/hr Meropenem (Merrem Iv 1 Gm Premix) 50 mls @ 100 mls/hr IVPB Q8 [facility] PRN Reason: Protocol Stop: 10/09/17 22:01 Last Admin: 10/03/17 15:05 Dose: 100 mls/hr Levetiracetam (Keppra) 500 mg PO BID [facility] Last Admin: 10/03/17 10:35 Dose: 500 mg Losartan Potassium (Cozaar) 50 mg PO BID [facility] Last Admin: 10/03/17 10:35 Dose: 50 mg Magnesium Oxide (Mag-Ox) 400 mg PO BID [facility] Last Admin: 10/03/17 10:35 Dose: 400 mg Metoprolol Tartrate (Lopressor) 50 mg PO BRKDIN [facility] Last Admin: 10/03/17 08:11 Dose: 50 mg Potassium Chloride (Klor-Con 10) 10 meq PO BRK [facility] Last Admin: 10/03/17 08:11 Dose: 10 meq Trazodone HCl (Desyrel) 50 mg PO HS [facility] Last Admin: 10/02/17 21:31 Dose: 50 mg Zolpidem Tartrate (Ambien) 5 mg PO HS PRN PRN Reason: Insomnia - Labs Labs: 10/02/17 07:15 10/02/17 07:15 PT 17.9 SECONDS (9.4-12.5) H 10/03/17 07:00 INR 1.61 (0.93-1.08) H 10/03/17 07:00 APTT 49.7 Seconds (25.1-36.5) H 09/28/17 22:00 - Constitutional Appears: Well, Non-toxic, No Acute Distress - Extremities Exam Additional comments: Vasc: pedal pulses are nonpalpable bilaterally, CFT is delayed x10 digits, temperature gradient is cool to cool Ortho: Tender to palpation of the LE Neuro: gross and protective sensation diminished Derm: L Ulceration with ulceration to the heel measuring approximately 1 x 1 x .1 secondary to deep tissue injury with surrounding ecchymosis noted. No malodo , no probe to bone, no active drainage, no cellulitic changes, no clinical signs of infection; R heel with old bruising to the dorsolateral aspect of right foot. No clinical signs of infection - Neurological Exam Neurological Exam: Alert - Psychiatric Exam Psychiatric exam: Normal Affect, Normal Mood Assessment and Plan - Assessment and Plan (Free Text) Assessment: 76 y.o female with L heel ulceration, stage II, secondary to DTI and R heel DTI Plan: Patient examined and evaluated with attending, Dr. Barger Labs, charts, vitals reviewed (afebrile, absent leukocytosis WBC 3.5) Discussed plan in detail with attending, Dr. Barger C/W multipodus. Must be worn at all times while in house Cleansed heels with saline, dried with gauze, and dressed with Optifoam. Will continue to follow while in house <Richard Barger - Last Filed: 10/04/17 07:25> Objective - Vital Signs/Intake and Output Vital Signs (last 24 hours): Temp Pulse Resp BP Pulse Ox 98.7 F 65 18 170/78 H 95 10/04/17 01:00 10/04/17 01:00 10/04/17 01:00 10/04/17 01:00 10/04/17 01:00 Intake and Output: 10/04/17 10/04/17 06:59 18:59 Intake Total 240 0 Output Total 1200 350 Balance -960 -350 - Medications Medications: Current Medications Acetaminophen (Tylenol 325mg Tab) 650 mg PO Q4H PRN PRN Reason: Temperature Last Admin: 10/03/17 18:53 Dose: 650 mg Acetylcysteine (Acetylcysteine 20%) 1 ml IH QIDRESP [facility] Last Admin: 10/03/17 19:31 Dose: 1 ml Albuterol/Ipratropium (Duoneb 3 Mg/0.5 Mg (3 Ml) Ud) 3 ml IH QIDRESP [facility] Last Admin: 10/03/17 19:31 Dose: 3 ml Amlodipine Besylate (Norvasc) 5 mg PO DAILY [facility] Clonazepam (Klonopin) 1 mg PO BID PRN PRN Reason: Systolic Blood Pressure Docusate Sodium (Colace) 100 mg PO BID [facility] Last Admin: 10/03/17 18:44 Dose: Not Given Doxycycline Hyclate (Doryx) 100 mg PO Q12 [facility] PRN Reason: Protocol Stop: 10/12/17 22:01 Last Admin: 10/03/17 22:47 Dose: 100 mg Enoxaparin Sodium (Lovenox) 60 mg SC Q12H [facility] PRN Reason: Protocol Last Admin: 10/03/17 22:47 Dose: 60 mg Famotidine (Pepcid) 20 mg PO DAILY [facility] Last Admin: 10/03/17 10:35 Dose: 20 mg Furosemide (Lasix) 20 mg PO DAILY [facility] Last Admin: 10/03/17 11:12 Dose: 20 mg Gabapentin (Neurontin) 300 mg PO TID [facility] PRN Reason: Protocol Last Admin: 10/03/17 18:52 Dose: 300 mg Meropenem (Merrem Iv 1 Gm Premix) 50 mls @ 100 mls/hr IVPB Q8 [facility] PRN Reason: Protocol Stop: 10/09/17 22:01 Last Admin: 10/04/17 05:46 Dose: 100 mls/hr Levetiracetam (Keppra) 500 mg PO BID [facility] Last Admin: 10/03/17 18:53 Dose: 500 mg Losartan Potassium (Cozaar) 50 mg PO BID [facility] Last Admin: 10/03/17 18:44 Dose: 50 mg Magnesium Oxide (Mag-Ox) 400 mg PO BID [facility] Last Admin: 10/03/17 18:53 Dose: 400 mg Metoprolol Tartrate (Lopressor) 50 mg PO BRKDIN [facility] Last Admin: 10/03/17 18:53 Dose: 50 mg Potassium Chloride (Klor-Con 10) 10 meq PO BRK [facility] Last Admin: 10/03/17 08:11 Dose: 10 meq Trazodone HCl (Desyrel) 50 mg PO HS [facility] Last Admin: 10/03/17 22:47 Dose: 50 mg Zolpidem Tartrate (Ambien) 5 mg PO HS PRN PRN Reason: Insomnia - Labs Labs: 10/02/17 07:15 10/02/17 07:15 PT 17.9 SECONDS (9.4-12.5) H 10/03/17 07:00 INR 1.61 (0.93-1.08) H 10/03/17 07:00 APTT 49.7 Seconds (25.1-36.5) H 09/28/17 22:00 Attending/Attestation - Attestation I have personally seen and examined this patient.: Yes I have fully participated in the care of the patient.: Yes I have reviewed all pertinent clinical information, including history, physical exam and plan: Yes
[2017-10-03] MEDS ORDERED: Enoxaparin 60 mg Syringe SC SCH (16:45)
--- NOTE | 2017-10-03 19:36 | PN ---
PULMONARY PROGRESS NOTE DATE: 10/03/2017 REFERRING PHYSICIAN: Dr. Forte. SUBJECTIVE: She is lying in the bed, very quite. No headache. No rhinitis, has some cough. No nausea. No vomiting. No diarrhea. No leg swelling. OBJECTIVE: GENERAL: In no acute distress. VITAL SIGNS: Temperature is 98, heart rate is 86, respiratory rate is 20, blood pressure 150/70, pulse ox 97% on 3 L nasal cannula. HEENT: Small oral cavity. Crowded airway. NECK: Supple. No JVD. LUNGS: Scattered rhonchi and wheezing. HEART: S1 and S2. ABDOMEN: Soft, nontender. No organomegaly. EXTREMITIES: There is no edema. NEUROLOGICAL: Awake, alert. Does follow simple command. MEDICATIONS: She is on Mucomyst 20% inhaled four times a day, Ambien 5 mg at bedtime p.r.n., Colace 100 mg twice a day, Losartan 50 mg twice a day, trazodone 50 mg at bedtime, doxycycline 100 mg twice a day, DuoNeb four times a day, Keppra 500 mg b.i.d., clonazepam 1 mg twice a day p.r.n., potassium 10 mEq daily, Lasix 20 mg daily, metoprolol tartrate 50 mg twice a day, Lovenox 60 mg subcu twice a day, magnesium oxide 400 mg twice a day, meropenem 1 g IV q. 8 hours, gabapentin 300 mg 3 times a day, Norvasc 5 mg daily, Pepcid 20 mg daily, and Tylenol p.r.n. LABORATORY DATA: Reviewed shows INR of 1.61. Microbiology; urine has E. Coli, which has been ESBL. IMPRESSION AND PLAN: Sepsis, urinary tract infection with extended-spectrum beta-lactamase, may have a pneumonia, chronic obstructive lung disease, coronary artery disease, history of coronary stent, hyperlipidemia, cardiac arrhythmia, atrial fibrillation, history of diverticulosis, seizure disorder, anxiety disorder, history of cerebrovascular accident, hepatitis C, cirrhotic liver, ascites, dislocated hip prosthesis. Pulmonary point of view, doing okay. Keep head at 45 degree. Aspiration precaution, bronchodilator, antibiotic. Gastric prophylaxis. SCD to lower extremity. Thank you and we will follow with you. Anushka Barreto MD [facility] # [id number]
--- NOTE | 2017-10-03 22:42 | PN ---
DATE: 10/03/2017 SUBJECTIVE: Patient is seen early this morning in room, cot 72, bed #2. PHYSICAL EXAMINATION GENERAL: Patient in bed, in no acute distress. VITAL SIGNS: Temperature of 100.5, blood pressure of 150/70, respiratory rate of 20, heart rate of 73. HEENT: Unremarkable. NECK: Supple. LUNGS: Decreased breath sounds. HEART: Normal S1 and S2. ABDOMEN: Soft, nontender. LABORATORY EXAMINATION: Reveals a white count of 3.5, hemoglobin of 9, platelets of 83. Chemistries reveals BUN of 14, creatinine of 0.6, procalcitonin is 0.37. Urinalysis is noted. Microbiology reveals blood cultures are negative, E. coli in the urine. E. coli in the urine is reported to be ESBL positive. Review of orders reveals the patient to be on doxycycline and meropenem. ASSESSMENT AND PLAN: This is a 76-year-old with history of coronary artery disease, cardiac stent, high cholesterol, hyperlipidemia, atrial fibrillation, diverticulitis, tonsillectomy, appendectomy, sepsis with extended spectrum beta-lactamases producing Escherichia coli in the urine, currently on meropenem and IV doxycycline. We will discontinue the IV doxycycline and change it to p.o. and follow the fever curve. We will follow with you. Ricardo Burgos MD
[2017-10-03] MEDS: Enoxaparin 60 mg Syringe SC SCH (22:47)
--- NOTE | 2017-10-04 04:10 | PN ---
DATE: 10/03/2017 SUBJECTIVE: The patient is in the bed with the daughter next to her, feeding her, she ate very well. The patient's neck is weak, as daughter noticed and no other complaints otherwise. She is still currently on IV meropenem for her underlying pneumonia and urinary tract infection. PHYSICAL EXAMINATION: VITAL SIGNS: As follows: Temperature 100.5, heart rate 73, blood pressure 159/73, respirations 20, and saturating 97% on room air. HEAD AND NECK: Normal. No JVD. No thyromegaly. Neck is weak and mildly tender. CHEST: Clear. CARDIAC: First sound and second sound normal. ABDOMEN: Soft and nontender. EXTREMITIES: No edema. NEUROLOGIC: The patient is bedridden. She does not move any of her extremities, especially left side, she chronically had left hemiplegia. LABORATORY STUDIES: Last labs, white count 3.5, hemoglobin 9.8, hematocrit 30.4, and platelets 83. PT is 17.9 and INR 1.61. Chemistry, sodium 145, potassium 4.3, chloride 116, bicarbonate 24, BUN 14, and creatinine 0.6. IMPRESSION AND PLAN: 1. Urosepsis and urinary tract infection. Continue meropenem. 2. Pneumonia, community-acquired. Continue meropenem and plus doxycycline. 3. Neck pain. CT was negative. Neurology consult seeing the patient. The patient otherwise stable. Thyroid nodules on ultrasound of the thyroid, which is possible malignancy. Need a biopsy, we will do that while the patient is here. Discussed with the daughter about thyroid biopsy. We will do it in the next few days. 4. Hypertension/hypercholesterolemia, stable. Continue current medication. 5. Chronic cerebrovascular accident/chronic atrial fibrillation. Continue current medications, which include Coumadin and also beta-poli metoprolol, which control her heart rate. The patient also is getting her blood pressure medications on a regular basis, which include Cozaar 50 mg b.i.d. and Lopressor 50 b.i.d. and also amlodipine 5 mg p.o. daily. 6. History of seizure disorder and history of stroke with encephalomalacia on previous CT. Continue Keppra 500 b.i.d. and continue rest of the medications. CURRENT MEDICATIONS: She is on Mucomyst, Ambien, Colace, Cozaar, Desyrel, doxycycline, DuoNeb, Keppra, Klonopin, K-Luiza 10 mEq p.o. daily, Lasix 20 mg daily, Lopressor 50 b.i.d., and Lovenox 60 subcutaneously q.12 hours for the time being. We will discontinue the warfarin for now until the biopsy probably be none and we will monitor PT/INR. Continue magnesium, meropenem, IV antibiotics, Neurontin, Norvasc 5 mg, Pepcid 20 p.o. daily and Tylenol p.r.n. Continue current therapy. Followup with the talent consultant. Albin Forte MD
[2017-10-04] MEDS: Meropenem IV 1 gm in NS 50 ML IVPB SCH ×2 (05:46→14:55)
--- NOTE | 2017-10-04 07:49 | PN ---
DATE: 10/02/2017 SUBJECTIVE: The patient has clinically no change. The patient has neck weakness. She opens her eye, she smiles, but she feels weak. The patient is chronically bedridden and does not do much movement, we move her from bed to chair with assistants. Daughter explained that she has some neck pain. PHYSICAL EXAMINATION: VITAL SIGNS: Temperature 98.3, heart rate 70, blood pressure 150/70, respirations 20, and saturation 96%. HEAD AND NECK: Normal except it is weak. There is some tenderness when I press in her neck, but also there is tenderness any side I touch or I press on any area in her body she is tender. CHEST: Clear. CARDIAC: First sound and second normal. ABDOMEN: Soft. EXTREMITIES: She does not move lower extremity and she has left hemiplegia with cushions on both heels and pillow between the legs. LABORATORY STUDIES: Her white count 3.5, hemoglobin 9.8, hematocrit 30.4, and platelets 83. Sodium 145, potassium 4.3, chloride 116, bicarbonate 24, BUN 14, creatinine 0.6, calcium 8.2, AST 41, ALT and alk phos is normal. IMPRESSION AND PLAN: 1. Neck pain. We will get a CT of the neck which has been done and reported to be no fractures to explain her pain. She has osteoarthritis and also thyroid nodules. We will get ultrasound of thyroid for further evaluation as per thyroid nodules. 2. Left hip dislocations. I spoke with Dr. Esparza about the possibility of reduction whether open versus closed. 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 I explained to the family, we will get a second opinion Dr. Varela, to give us second opinion about this. 3. Cerebrovascular accident, hypertension, chronic atrial fibrillations, thrombocytopenia, chronic hepatitis C, carotid stenosis, chronic cerebrovascular accident with left hemiplegia, and bedridden. We will continue current therapy. 4. Community-acquired pneumonia. She is on IV antibiotic which will be changed to p.o. as she seems clinically stable. Currently, she is on meropenem 1 g IV q. 8 hours. We will continue that in addition to doxycycline. 5. History of seizure disorders. Continue Keppra 500 mg b.i.d. Continue current therapy. Continue inhaled bronchodilator, the patient is getting Mucomyst. She was seen by Ice Platform Supervisor Dr. Barreto. She has continued DuoNeb and follow up clinically. Albin Forte MD
[2017-10-04] MEDS: Potassium Chloride 10 mEq ER Tab PO SCH (08:07)
[2017-10-04 08:11] LABS: INR 1.42 (0.93-1.08)
[2017-10-04 08:31] LABS: FREE T4 1.04 ng/dL (0.78-2.19)
[2017-10-04 08:45] LABS: T3 0.84 ng/mL (0.97-1.69); THYROID STIMULATING HORMONE 0.66 mIU/mL (0.46-4.68)
--- NOTE | 2017-10-04 09:06 | CON ---
DATE: 10/03/2017 Patient is a 76-year-old female in room 572, bed 2. 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 She cannot help herself because of neurologic condition of a stroke and has no ability to converse or communicate and no way can she help herself and has to be fed. The family requested opinion about reducing the left hip to make her easy to manage by explaining to her since the hip has been out so long, it is a bipolar cemented prosthesis which dislocated approximately 2 weeks ago, the patient's family said, but by fixing dislocated hip, it is so difficult that the disk out weight the benifits, they would not make her walk and there was high chance of dislocating again because of the contracture she is getting in the knees and the hips and would bleed too much because she has a cemented hip prosthesis which makes it harder to remove and there is no evidence of pressure from the dislocated femoral head irritating the skin. It must be protected by the gluteus muscles. Since she does not have symptoms of bedsores on the left hip and she cannot walk, she cannot care for herself, reducing the left hip would be futile. So, I advised no surgery, that she needs compassionate care, 24-hour help. She presently lives on the third floor and I told her that is not helping the issue. If there was a fire, she will never make it out. Daughter said, "well, I have a fire escape and I said "you never gonna get her on the fire escape to get out as she can't mobilize herself." She is starting to get flexion and contraction on both knees from the spastic paresis. So, I said no orthopedic surgery should be considered and that she needs compassionate care for long-term convalescence and help and to do that because of any amount of surgery which has a very high risk of blood loss, redislocation, anesthetic problems, and she would not be able to participate in the benefits of reduced hip. So, I advised no surgery, I advised compassionate care, permanent professional help, even a good jail because her daughter would not be able to take care of her at home, especially on the third floor is unrealistic. I will provide some physical therapy in the hospital while she is here, but in [facility], she needs a placement to care for her in a compassionate care setting. Mike Varela DO JAMES
[2017-10-04] MEDS: Albuterol-Ipratrop 3 mg / 0.5 (3 ml) UD IH SCH ×2 (09:32→13:49)
[2017-10-04] MEDS: Acetylcysteine 20% Inhal Soln (4ml) IH SCH ×2 (09:36→13:48)
[2017-10-04] MEDS: Magnesium Oxide 400 mg Tab UD PO SCH (10:13)
[2017-10-04] MEDS: Enoxaparin 60 mg Syringe SC SCH (10:14)
--- NOTE | 2017-10-04 11:48 | CP.PCM.PN ---
Subjective - Date & Time of Evaluation Date of Evaluation: 10/04/17 Time of Evaluation: 11:44 - Subjective Subjective: Podiatry Progress Note- Dr. Barger 76 year old female patient seen and evaluated at bedside with attending, Dr. Barger, for left heel ulceration and right heel DTI. Patient sleeping at time of visit, NAD. Dressing clean/dry/intact. Heel offloading boots present. Objective - Vital Signs/Intake and Output Vital Signs (last 24 hours): Temp Pulse Resp BP Pulse Ox 98.4 F 62 18 169/79 H 94 L 10/04/17 07:30 10/04/17 07:30 10/04/17 07:30 10/04/17 10:14 10/04/17 07:30 Intake and Output: 10/04/17 10/04/17 06:59 18:59 Intake Total 240 0 Output Total 1200 350 Balance -960 -350 - Medications Medications: Current Medications Acetaminophen (Tylenol 325mg Tab) 650 mg PO Q4H PRN PRN Reason: Temperature Last Admin: 10/03/17 18:53 Dose: 650 mg Acetylcysteine (Acetylcysteine 20%) 1 ml IH QIDRESP [facility] Last Admin: 10/04/17 09:36 Dose: 1 ml Albuterol/Ipratropium (Duoneb 3 Mg/0.5 Mg (3 Ml) Ud) 3 ml IH QIDRESP [facility] Last Admin: 10/04/17 09:32 Dose: 3 ml Amlodipine Besylate (Norvasc) 5 mg PO DAILY [facility] Last Admin: 10/04/17 10:20 Dose: 5 mg Clonazepam (Klonopin) 1 mg PO BID PRN PRN Reason: Systolic Blood Pressure Docusate Sodium (Colace) 100 mg PO BID [facility] Last Admin: 10/04/17 10:20 Dose: Not Given Doxycycline Hyclate (Doryx) 100 mg PO Q12 [facility] PRN Reason: Protocol Stop: 10/12/17 22:01 Last Admin: 10/04/17 10:13 Dose: 100 mg Enoxaparin Sodium (Lovenox) 60 mg SC Q12H [facility] PRN Reason: Protocol Last Admin: 10/04/17 10:14 Dose: 60 mg Famotidine (Pepcid) 20 mg PO DAILY [facility] Last Admin: 10/04/17 10:13 Dose: 20 mg Furosemide (Lasix) 20 mg PO DAILY [facility] Last Admin: 10/04/17 10:14 Dose: 20 mg Gabapentin (Neurontin) 300 mg PO TID [facility] PRN Reason: Protocol Last Admin: 10/04/17 10:14 Dose: 300 mg Meropenem (Merrem Iv 1 Gm Premix) 50 mls @ 100 mls/hr IVPB Q8 [facility] PRN Reason: Protocol Stop: 10/09/17 22:01 Last Admin: 10/04/17 05:46 Dose: 100 mls/hr Levetiracetam (Keppra) 500 mg PO BID [facility] Last Admin: 10/04/17 10:13 Dose: 500 mg Losartan Potassium (Cozaar) 50 mg PO BID [facility] Last Admin: 10/04/17 10:13 Dose: 50 mg Magnesium Oxide (Mag-Ox) 400 mg PO BID [facility] Last Admin: 10/04/17 10:13 Dose: 400 mg Metoprolol Tartrate (Lopressor) 50 mg PO BRKDIN [facility] Last Admin: 10/04/17 08:07 Dose: 50 mg Potassium Chloride (Klor-Con 10) 10 meq PO BRK [facility] Last Admin: 10/04/17 08:07 Dose: 10 meq Trazodone HCl (Desyrel) 50 mg PO HS [facility] Last Admin: 10/03/17 22:47 Dose: 50 mg Zolpidem Tartrate (Ambien) 5 mg PO HS PRN PRN Reason: Insomnia - Labs Labs: 10/02/17 07:15 10/02/17 07:15 PT 15.7 SECONDS (9.4-12.5) H 10/04/17 07:30 INR 1.42 (0.93-1.08) H 10/04/17 07:30 APTT 49.7 Seconds (25.1-36.5) H 09/28/17 22:00 - Constitutional Appears: Well, Non-toxic, No Acute Distress - Extremities Exam Additional comments: Vasc: pedal pulses are nonpalpable bilaterally, CFT is delayed x10 digits, temperature gradient is cool to cool Ortho: Tender to palpation of the LE Neuro: gross and protective sensation diminished Derm: L Ulceration with ulceration to the heel measuring approximately 1 x 1 x .1 secondary to deep tissue injury with surrounding ecchymosis noted. No malodo , no probe to bone, no active drainage, no cellulitic changes, no clinical signs of infection; R heel with old bruising to the dorsolateral aspect of right foot. No clinical signs of infection - Neurological Exam Neurological Exam: Alert, Awake, Oriented x3 - Psychiatric Exam Psychiatric exam: Normal Affect, Normal Mood Assessment and Plan - Assessment and Plan (Free Text) Assessment: 76 y.o female with L heel ulceration, stage II, secondary to DTI and R heel DTI Plan: Patient examined and evaluated with attending, Dr. Barger Mildly febrile yesterday PM (T 100.5), afebrile currently Leukopenia present 3.5 Will continue to monitor heels b/l - Optifoam to left heel Continue offloading boots at all times while in bed Podiatry will continue to follow patient while in house
[2017-10-04 15:38] VITALS: RESP 20
--- NOTE | 2017-10-04 16:56 | PN ---
DATE: 10/04/2017 NEUROLOGY FOLLOWUP CHIEF COMPLAINT: Followup for change in mental status. SUBJECTIVE: The patient is a 76-year-old woman. The patient is lying in bed very quiet. No headaches. No rhinitis. No changes in sense of vision, taste, or smell at this time. No acute events overnight. She is little bit more responsive today. Withdraws to localized noxious stimulus. On antibiotics for underlying sepsis from urinary tract infection and possible pneumonia. Mostly bedridden. . PAST MEDICAL HISTORY: History of hypertension, history of right-sided MCA, CVA residual left-sided weakness, history of seizure disorder from right MCA, CVA, on Keppra, peripheral artery disease, history of COPD, and atrial fibrillation. SOCIAL HISTORY: No history of any smoking, alcohol, or illicit drug at this time. ALLERGIES: ALLERGIC TO PENICILLIN, QUESTIONABLE RASH. REVIEW OF SYSTEMS: The 14-point review of systems negative except the HPI. PHYSICAL EXAMINATION: GENERAL: The patient is drowsy, in no acute distress. VITAL SIGNS: Temperature 98.2, pulse rate of 60, blood pressure 170/77, respiratory rate 18, and O2 saturation is 95% on room air. HEENT: Head is atraumatic and normocephalic. PERRLA. Extraocular muscles are intact. NECK: Supple. No JVD. No adenopathy noted. LUNGS: Decreased breath sounds bilaterally. HEART: S1 and S2, normal rate and rhythm. No murmurs, rubs, or gallops. ABDOMEN: Soft, nontender, and nondistended. Bowel sounds are present. EXTREMITIES: No clubbing. No cyanosis. Peripheral pulses are 2+ bilaterally. NEUROLOGIC: The patient is alert and oriented to person and place, knows the president of [employer]. Recall after 5 minutes is 0 out of 3. Poor attention and slow thought process. Cranial nerves II through XII are intact except for residual left facial droop from an old CVA. Motor exam has left spastic hemiplegia from old right MCA CVA, contracted on lower extremity muscles. She is moving right side. DTRs are 1+ throughout. Coordination is intact on the right. [id number] difficult on the left due to paralysis from an old cerebrovascular accident. Gait is deferred for now. LABORATORY DATA: Sodium is 145, potassium 4.3, chloride 116, carbon dioxide 24, BUN is 14, creatinine 0.6, and random glucose is 76. ASSESSMENT AND PLAN: This is a 76-year-old woman with past medical history of dyslipidemia, hypertension, right middle cerebral artery territory infarct with residual spastic left-sided weakness, chronic left facial droop from prior cerebrovascular accident, history of seizure disorder secondary to large right middle cerebral artery infarct, history of chronic obstructive pulmonary disease, history of chronic pain syndrome, history of sepsis to Escherichia coli, who presented to the hospital for drowsiness, change in mental status, more lethargic, found to have urosepsis with underlying possible pneumonia, which is current again treated. At this time, altered mental status secondary to underlying toxic metabolic encephalopathy from underlying sepsis, superimposed on underlying deconditioning, history of cognitive impairment with old residual weakness on prior underlying cerebrovascular accident in addition to transient cerebral hyperperfusion to the brain. Her CAT scan showed residual features of encephalomalacia in the middle cerebral artery territory infarct. RECOMMENDATIONS: At this time recommend: 1. Follow ID's recommendation for current antibiotics. 2. Monitor electrolytes and correct accordingly. 3. Keep her systolic and diastolic blood pressure low and continue with current present medical management and get PT/OT evaluation. Delirium precautions. The patient is stable from a neurology standpoint. Thank you for this followup. Rell Bernstein MD
[2017-10-04 17:00] VITALS: BP 160/75; PULSE 83; TEMP 98.4; O2SAT 95
--- NOTE | 2017-10-04 18:52 | PN ---
DATE: 10/04/2017 SUBJECTIVE: The patient seen earlier today. No fever. No chills. Uneventful night. PHYSICAL EXAMINATION VITAL SIGNS: Yesterday's temperature was up to 100.5, today's temperature is 98, blood pressure 160/70, respiratory rate of 18 and heart rate of 65. HEENT: Unremarkable. NECK: Supple. LUNGS: Have decreased breath sounds. HEART: Normal S1 and S2. ABDOMEN: Soft and nontender. LABORATORY DATA: Reveals a white count of 3.5, hemoglobin of 9 and platelets of 83. Coagulation is noted and chemistry reveals a BUN of 14 and creatinine of 0.6. Urinalysis is noted. Microbiology reveals the E. coli to be in the urine. The blood cultures have no growth for 5 days. The E. coli in the urine is ESBL and the stool for C. diff, negative toxin, negative antigen. MEDICATIONS: Currently, the patient is on p.o. doxycycline and IV meropenem. ASSESSMENT AND PLAN: This is a 76-year-old with a history of coronary artery disease, cardiac stents, high cholesterol, hyperlipidemia, atrial fibrillation, diverticulitis, tonsillectomy, appendectomy and sepsis with extended-spectrum beta-lactamases producing Escherichia coli in the urine, on meropenem and doxycycline and we have procalcitonin of 0.37, today is day #6, we will complete 7 days. We will also order urinalysis and urine culture, repeat. Ricardo Burgos MD
--- NOTE | 2017-10-04 19:16 | PN ---
DATE: 10/04/2017 PULMONARY PROGRESS NOTE REFERRING PHYSICIAN: Dr. Forte. SUBJECTIVE: The patient is lying in the bed, head at 45 degrees, comfortable. Night was unremarkable. Cough is better. No nausea. No vomiting. No diarrhea. No leg swelling. OBJECTIVE: GENERAL: In no acute distress. VITAL SIGNS: Temperature is 98, heart rate is 83, respiratory rate is 20, blood pressure is 160/75 and pulse oximetry is 95% on nasal cannula. HEENT: Moist mucous membranes. Small oral cavity. NECK: Supple. No JVD. LUNGS: Have a few scatter rhonchi. HEART: S1 and S2. ABDOMEN: Soft and nontender. No organomegaly. EXTREMITIES: No edema. NEUROLOGIC: Awake and follows simple command. MEDICATIONS: Reviewed and noted. No new changes in the medication report since yesterday. LABORATORY DATA: Shows INR today 1.42. No other labs are available sine yesterday. Microbiology; urine culture has ESBL E. coli. IMPRESSION AND PLAN: Sepsis, urinary tract infection, may have component of pneumonia, chronic obstructive lung disease, coronary artery disease, history of coronary stent, hyperlipidemia, cardiac arrhythmia, atrial fibrillation, history of diverticulosis, seizure disorder, anxiety disorder, history of cerebrovascular accident in remote past, hepatitis C, cirrhotic liver, ascites, dislocated hip prosthesis. Pulmonary point of view, keep head at 45 degrees bronchodilator, antibiotics as per Infectious Disease. Gastric prophylaxis, on anticoagulation. Keep INR on 2.5 or so. Thank you and we will follow with you. Anushka Barreto MD
--- NOTE | 2017-10-06 13:41 | DS ---
HISTORY OF PRESENT ILLNESS AND HOSPITAL COURSE: The patient came in with fever, found to have urinary tract infection and community-acquired pneumonia. She has been seen by ID consult, Dr. Burgos; pulmonary consult, Dr. Barreto. She was also seen by orthopedic consult, Dr. Esparza and Dr. Varela for possible surgery, manipulation of the left hip which has been declined due to chronic nature of the hip dislocation. The patient has no other complaints. She was feeling weak, not eating but overtime with IV antibiotics, clinically improved. Her neck discomfort was evaluated by neurologist, Dr. Bernstein. CT of the neck shows degenerative disk disease; otherwise, there are no acute findings. The patient also had E. coli in the urine culture. Blood cultures x2 is negative and the patient also had C. diff antigen and toxin serology because of the loose bowel movements and the results came back negative. The patient was given meropenem, did well;nebulizer treatment; blood pressure medications. She was getting feeding with assistance and maintained on Lovenox due to the Coumadin possible biopsy of her thyroid next week. Due to her possible biopsy, we would hold off on Coumadin and the patient maintained on Lovenox. The patient will be transferred to Transitional Care Unit for continuation of therapy and will follow up clinically. CURRENT MEDICATIONS: Mucomyst, Ambien 5 mg at bedtime, Colace, Cozaar 50 mg b.i.d., Desyrel 50 mg daily, doxycycline 100 mg b.i.d., Keppra 500 mg b.i.d., nebulizer treatment, clonazepam 1 mg b.i.d., potassium 10 mEq p.o. daily, Lasix 20 mg p.o. daily, Lopressor 50 mg b.i.d., Lovenox 60 b.i.d., magnesium oxide 400 b.i.d., IV meropenem, Neurontin, Norvasc 5 mg p.o. daily which added, Pepcid 20 mg p.o. daily, and Tylenol p.r.n. The patient will be discharged. PHYSICAL EXAMINATION: Her physical exam on discharge is as follows; GENERAL: Hemodynamically stable, afebrile, daughter next to the bedside. VITAL SIGNS: Temperature 98.4, heart rate 83, blood pressure 160/75, respiratory rate 20, and saturation 95%. HEAD AND NECK: Normal. No JVD. No thyromegaly. CHEST: Clear with good air entry. CARDIAC: First sound and second sound normal. ABDOMEN: Soft, nontender. EXTREMITIES: There is mild edema in the ankles bilaterally. NEURO: Neurologically, the patient does not move any of her extremities. She is bedridden, has no sacral decubitus. She has some redness, but no ulceration. She also had heel cushions. The patient have been feeding NG at 45-degree angle and soft collar was put in for her neck. DISCHARGE DIAGNOSES: As follows; 1. Community-acquired pneumonia. 2. Urinary tract infections, Escherichia coli. 3. Hypertension. 4. Chronic back pain, neck pain. 5. Chronic anxiety. 6. Chronic anemia. 7. History of chronic hepatitis C. 8. Thrombocytopenia. 9. Chronic atrial fibrillation. 10. History of cerebrovascular accident with encephalomalacia on CT of the head. The patient also had chronic insomnia and chronic obstructive pulmonary disease. Plan is to continue current therapy, continue current medications, IV antibiotics, we will discharge to TCU. Please be advised this note for 10/04/2017. Albin Forte MD
== END 2017-10-04 17:12 | DRG 871 ==
LOC: ED 21:04 → ERH 09-29 00:23 → 5RSO 09-29 01:56
PROVIDERS: ADMIT Internal Medicine; ATTEND Internal Medicine
DX: A41.9 Sepsis, unspecified organism (principal); G92 Toxic encephalopathy; J18.9 Pneumonia, unspecified organism; K81.0 Acute cholecystitis; D68.9 Coagulation defect, unspecified; D69.6 Thrombocytopenia, unspecified; G93.89 Other specified disorders of brain; K76.6 Portal hypertension; I69.354 Hemiplegia and hemiparesis following cerebral infarction affecting left non-dominant side; J44.0 Chronic obstructive pulmonary disease with (acute) lower respiratory infection; L97.429 Non-pressure chronic ulcer of left heel and midfoot with unspecified severity; N39.0 Urinary tract infection, site not specified; R18.8 Other ascites; R47.01 Aphasia; T84.021A Dislocation of internal left hip prosthesis, initial encounter; I11.0 Hypertensive heart disease with heart failure; I50.9 Heart failure, unspecified; R16.1 Splenomegaly, not elsewhere classified; G40.909 Epilepsy, unspecified, not intractable, without status epilepticus; I48.2 Chronic atrial fibrillation; I65.29 Occlusion and stenosis of unspecified carotid artery; B18.2 Chronic viral hepatitis C; D64.9 Anemia, unspecified; E04.2 Nontoxic multinodular goiter; E78.00 Pure hypercholesterolemia, unspecified; E78.5 Hyperlipidemia, unspecified; F03.90 Unspecified dementia, unspecified severity, without behavioral disturbance, psychotic disturbance, mood disturbance, and anxiety; F41.9 Anxiety disorder, unspecified; F51.04 Psychophysiologic insomnia; G89.4 Chronic pain syndrome; I25.10 Atherosclerotic heart disease of native coronary artery without angina pectoris; I71.9 Aortic aneurysm of unspecified site, without rupture; I73.9 Peripheral vascular disease, unspecified; I86.8 Varicose veins of other specified sites; K52.9 Noninfective gastroenteritis and colitis, unspecified; K74.60 Unspecified cirrhosis of liver; K82.8 Other specified diseases of gallbladder; L89.622 Pressure ulcer of left heel, stage 2; M24.452 Recurrent dislocation, left hip; M47.9 Spondylosis, unspecified; Y79.2 Prosthetic and other implants, materials and accessory orthopedic devices associated with adverse incidents; Y95 Nosocomial condition; Z16.12 Extended spectrum beta lactamase (ESBL) resistance; Z74.01 Bed confinement status; Z79.01 Long term (current) use of anticoagulants; Z79.899 Other long term (current) drug therapy; Z87.01 Personal history of pneumonia (recurrent); Z87.440 Personal history of urinary (tract) infections; Z87.891 Personal history of nicotine dependence; Z90.49 Acquired absence of other specified parts of digestive tract; Z93.3 Colostomy status; Z95.5 Presence of coronary angioplasty implant and graft; Z98.82 Breast implant status

== ENCOUNTER 2017-10-04 17:17 | Inpatient (IN) | payer OTHER ==
[2017-10-04] MEDS: Magnesium Oxide 400 mg Tab UD PO SCH (19:02)
[2017-10-04] MEDS: Enoxaparin 60 mg Syringe SC SCH (19:12)
[2017-10-04] MEDS: Albuterol-Ipratrop 3 mg / 0.5 (3 ml) UD IH SCH (19:35)
[2017-10-04] MEDS: Acetylcysteine 20% Inhal Soln (4ml) IH SCH (19:35)
[2017-10-04] MEDS ORDERED: Pneumococcal 23-Valent Vaccine IM ONE (19:53)
[2017-10-04] MEDS ORDERED: Influenza Vaccine 60 mcg/0.5 mL SYR (4YR UP) IM ONE (19:53)
[2017-10-04] MEDS: Meropenem IV 1 gm in NS 50 ML IVPB SCH (21:35)
[2017-10-05] MEDS: Enoxaparin 60 mg Syringe SC SCH ×2 (05:16→18:42)
[2017-10-05] MEDS: Meropenem IV 1 gm in NS 50 ML IVPB SCH ×3 (05:16→22:30)
[2017-10-05 07:15] LABS: EOS # 0.1 (0.0-0.7); EOS % 2.4 % (1.5-5.0); GRAN # 2.98 (1.4-6.5); GRAN % 59.3 % (50.0-68.0); HEMOGLOBIN 9.4 g/dL (12.0-16.0); LYMPH # 1.5 (1.2-3.4); LYMPH % 29.9 % (22.0-35.0); MEAN CELL VOLUME 88.2 fl (80.0-105.0); MEAN CORPUSCULAR HEMOGLOBIN 29.2 pg (25.0-35.0); MEAN CORPUSCULAR HGB CONC 33.1 g/dl (31.0-37.0); MEAN PLATELET VOLUME 9.7 fl (7.0-11.0); MONO # 0.4 (0.1-0.6); MONO % 8.4 % (1.0-6.0); RBC 3.22 10^6/uL (3.5-6.1); RED CELL DISTRIBUTION WIDTH 17.3 % (11.5-14.5)
[2017-10-05] MEDS: Acetylcysteine 20% Inhal Soln (4ml) IH SCH ×4 (07:41→23:00)
[2017-10-05] MEDS: Albuterol-Ipratrop 3 mg / 0.5 (3 ml) UD IH SCH ×4 (07:42→23:00)
[2017-10-05 07:54] LABS: BLOOD UREA NITROGEN 14 mg/dL (7-21); CALCIUM 8.2 mg/dL (8.4-10.5); GFR AFRICAN-AMERICAN > 60; GFR NON-AFRICAN AMERICAN > 60
[2017-10-05] MEDS: Potassium Chloride 10 mEq ER Tab PO SCH (08:15)
[2017-10-05] MEDS: Magnesium Oxide 400 mg Tab UD PO SCH ×3 (14:12→18:44)
--- NOTE | 2017-10-05 23:26 | CON ---
DATE: 10/05/2017 The patient is in room 302. CHIEF COMPLAINT: Weakness from several days. HISTORY OF PRESENT ILLNESS: This is a 75-year-old female with history of cerebrovascular accident, left-sided weakness and with seizures, aortic aneurysm, diverticulitis, congestive heart failure, peripheral vascular disease, hepatitis C, atrial fibrillation and who has had history of appendectomy, tonsillectomy. SHE IS ALLERGIC TO PENICILLIN. She was admitted with diagnoses of gastroenteritis and fever. The patient in acute care was discovered to have sepsis an ESBL E. coli in the urine and although on admission, the patient had a temperature of 101.5. The patient's was started on antibiotics and meropenem and doxycycline and responded to the antibiotics now transferred to transitional care in room 302 for physical therapy and completed the antibiotic therapy. REVIEW OF SYSTEMS: Reveals there is no fevers now. No chills. No nausea and vomiting. No chest pain. PAST MEDICAL HISTORY: Significant for cerebrovascular accident, left-sided weakness, seizures, aortic aneurysm, congestive heart failure, diverticulitis, peripheral vascular disease, hepatitis C, atrial fibrillation. PAST SURGICAL HISTORY: Significant for appendectomy and tonsillectomy. The patient has no known travel. ALLERGIES: SHE IS ALLERGIC TO PENICILLIN. MEDICATIONS: Reviewed. PHYSICAL EXAMINATION: VITAL SIGNS: Temperature is 98, blood pressure is 120/70, respiratory rate 16. HEENT: Unremarkable. NECK: Supple. LUNGS: Have decreased breath sounds. HEART: Normal S1, S2. ABDOMEN: Soft, nontender. LABORATORY EXAMINATION: Reveals a white count of 5.0, hemoglobin of 90, platelets of 90. Coagulation is noted and blood gases are reviewed. BUN of 11, creatinine of 0.6 and urinalysis is noted 10 to 15 WBCs. Review of microbiology reveals the blood cultures are negative. Urine cultures E. Coli with ESBL. The C. diff antigen and toxin is also negative. ASSESSMENT AND PLAN: A 76-year-old patient female with Dr. Forte. The patient who says seizures and left-sided weakness, cerebrovascular accident, aortic aneurysm, diverticulitis, congestive heart failure, peripheral vascular disease, hepatitis C and atrial fibrillation, admitted with sepsis with extended spectrum beta lactamase Escherichia coli in the urine today is day number 7 of meropenem and doxycycline. Case discussed with Dr. Forte. Ricardo Burgos MD [facility] # [id number]
--- NOTE | 2017-10-06 02:04 | CON ---
DATE: 10/05/2017 REFERRING PHYSICIAN: Albin Forte MD REASON FOR CONSULTATION: Cough, shortness of breath, chronic lung disease. HISTORY OF PRESENT ILLNESS: This is a 76-year-old female known to me from previous admissions with hypertension, history of stroke, bedridden, reacting decubiti ulcer, hypertension, aortic aneurysm, depression, hepatitis, seizure disorder, was admitted to acute side of the hospital, presently brought into TICU for continued care, has some cough and sputum. No nausea, no vomiting. No diarrhea, leg pain or leg swelling. PAST MEDICAL HISTORY: As per history of present illness. SOCIAL HISTORY: Nonsmoker, nondrinker. Lives with the daughter. ALLERGIES: TO PENICILLIN. FAMILY HISTORY: No significant cardiopulmonary disease reported. MEDICATIONS: She is on Mucomyst 20% inhaled four times a day, Ambien 5 mg at bedtime p.r.n., Colace 100 mg twice a day, Cozaar 50 mg twice a day, trazodone 50 mg at bedtime, doxycycline 100 mg twice a day, DuoNeb q. 6 h. IV., Keppra 500 mg twice a day, Klonopin 1 mg twice a day p.r.n., potassium 10 mEq daily, Lasix 20 mg daily, metoprolol tartrate 50 mg twice a day, Lovenox 60 mg subcu twice a day, magnesium oxide 400 mg twice a day, meropenem 1 g IV q. 8 hours, Neurontin 300 mg three times a day, Norvasc 5 mg daily, Pepcid 20 mg daily, Tylenol p.r.n. basis. REVIEW OF SYSTEMS: Very quiet, sleepy, arousable, mild cough and short of breath. No chest pain. No nausea, no vomiting. No diarrhea. No abdominal pain. No leg swelling. Has pressure ulcers. PHYSICAL EXAMINATION" GENERAL: Lying in the bed, no acute distress. VITAL SIGNS: Temperature is 98, heart rate 68, respiratory rate is 20, blood pressure 148/72, pulse of 93% nasal cannula. HEENT: Small oral cavity. Crowded airway. NECK: Supple. No JVD. Has a cervical collar. LUNGS: Has fair airflow with rhonchi. HEART: S1, S2. ABDOMEN: Soft, nontender, no organomegaly. EXTREMITIES: Does have edema and a pressure ulcers. NEUROLOGIC: Awake, alert, and does follow simple commands. LABORATORY DATA: Shows hemoglobin 9.4, hematocrit 28.4, WBC 5.0, platelet count is 90. INR 1.42. Sodium 137, potassium 4.3, chloride 105, bicarbonate is 26, BUN 14, creatinine 0.6, glucose 85, calcium is 8.2. Microbiology, blood cultures been negative. Urine has ESBL E-coli, stool for C. diff is negative. IMPRESSION AND PLAN: Sepsis, extended spectrum beta-lactamase cause urinary tract infection, may be basilar pneumonia, chronic obstructive lung disease, coronary artery disease, coronary stent, hyperlipidemia, cardiac arrhythmia, atrial fibrillation, history of diverticulosis, seizure disorder, anxiety disorder, history of cerebrovascular accident, hepatitis C, cirrhotic liver, ascites, dislocated hip, high risk for pressure ulcers. Pulmonary point of view, continue bronchodilator, keep head at 45 degrees, antibiotics, anticoagulation. Thank you and we will follow with you. Anushka Barreto MD
--- NOTE | 2017-10-06 02:39 | HP ---
HISTORY OF PRESENT ILLNESS: The patient came to TCU for continuation of her current medication therapy, physical therapy and continuation of IV antibiotic for community-acquired pneumonia and urinary tract infection. The patient has no new complaints. PAST MEDICAL HISTORY: As I mentioned before, she does have CVA. She has had hypertension, chronic hepatitis C, chronic abdominal aortic aneurysm. She has history of decubitus ulcer of foot, but healed and treated well in the past, anemia, chronic. She has history of hypertension, seizure disorder, leg edema, chronic atrial fibrillation, anxiety and depression. ALLERGIES: PENICILLIN. FAMILY HISTORY: Noncontributory. HOME MEDICATIONS: Same as it was almost here. Medications that she is getting now Mucomyst, Ambien 5 mg, Colace, Cozaar 50 mg b.i.d., Desyrel 50 mg q.h.s., doxycycline 100 mg b.i.d., DuoNeb, Keppra 500 mg b.i.d., Klonopin 1 mg b.i.d., potassium 10 daily, and Lasix 20 daily, Lopressor 50 mg p.o. b.i.d., Lovenox 60 q.12, magnesium oxide 400 mg b.i.d., meropenem 1 gm IV q.8, Neurontin 300 mg four times daily, Norvasc 5 mg p.o. daily, Pepcid 20 mg p.o. daily and Tylenol p.r.n. SOCIAL HISTORY: She is living at home. Her daughter is very supportive to her. Otherwise no smoking. No drinking. REVIEW OF SYSTEMS: As in present illness. PHYSICAL EXAMINATION: GENERAL: The patient in the bed. She is comfortable. VITAL SIGNS: Temperature 98.6, heart rate 68, blood pressure 148/72, respirations 18, saturation 96%. HEAD/NECK: Normal. No JVD. No thyromegaly. CHEST: Diminished breath sounds bilaterally. CARDIAC: First and second sounds normal. ABDOMEN: Soft, nontender. EXTREMITIES: Mild ankle edema. NEUROLOGIC: The patient does not move extremities. She has left hemiplegia and minimal movement. She is bedridden. LABORATORY DATA: White count 5, hemoglobin 9.4, hematocrit 28.4, platelets 90,000. Sodium 137, potassium 4.3, chloride 105, bicarb 26, BUN 14, creatinine 0.6, calcium 8.2. IMPRESSION: 1. Community-acquired pneumonia and urinary tract infections. Continue IV meropenem and doxycycline. 2. Chronic obstructive pulmonary disease. 3. Hypertension. 4. Chronic hepatitis C. 5. Chronic anxiety. 6. Chronic back pain with chronic osteoarthritis. 7. Chronic cerebrovascular accident. 8. Chronic atrial fibrillation. PLAN: To continue current therapy. We will follow up clinically. Also the patient has chronic anemia. We still could not do colonoscopy due to poor prep, history of abdominal aortic aneurysm stable. Continue current therapy. Continue IV antibiotic. Continue physical therapy as tolerated and we will follow up clinically. Albin Forte MD
[2017-10-06] MEDS: Meropenem IV 1 gm in NS 50 ML IVPB SCH ×3 (06:36→21:20)
[2017-10-06] MEDS: Enoxaparin 60 mg Syringe SC SCH ×2 (06:36→18:19)
[2017-10-06] MEDS: Acetylcysteine 20% Inhal Soln (4ml) IH SCH ×4 (07:27→21:34)
[2017-10-06] MEDS: Albuterol-Ipratrop 3 mg / 0.5 (3 ml) UD IH SCH ×4 (07:28→21:35)
[2017-10-06] MEDS: Potassium Chloride 10 mEq ER Tab PO SCH (08:13)
[2017-10-06] MEDS: Magnesium Oxide 400 mg Tab UD PO SCH ×2 (09:33→18:19)
--- NOTE | 2017-10-06 11:07 | PN ---
DATE: 10/06/2017 SUBJECTIVE: The patient is in bed, in no acute distress, and nontoxic. PHYSICAL EXAMINATION VITAL SIGNS: Temperature is 99 to 100, respiratory rate of 18, and heart rate of 66. HEENT: Examination of HEENT is unremarkable. NECK: Supple. LUNGS: Lungs have decreased breath sounds. HEART: Normal S1 and S2. ABDOMEN: Soft and nontender. LABORATORY DATA: Laboratory examination reveals a white count of 5000, hemoglobin of 9, and platelets of 90. Chemistry reveals a BUN of 14, and creatinine 0.6. Microbiology is pending. ASSESSMENT AND PLAN: This is a 76-year-old female with seizures, left-sided weakness, cerebrovascular accident, aortic aneurysm, diverticulitis, congestive heart failure, peripheral vascular disease, hepatitis C, and atrial fibrillation with sepsis with extended spectrum beta-lactamase, Escherichia coli in the urine. The patient had seven days of meropenem and doxycycline, today is day number 8. So, we will discontinue the antibiotic in the next 24 hours. Ricardo Burgos MD
--- NOTE | 2017-10-06 20:39 | PN ---
DATE: SUBJECTIVE: The patient is comfortable, has neck collar in her. She has no chest pain and in no distress. She seems comfortable. PHYSICAL EXAMINATION: VITAL SIGNS: The patient had a temperature of 100, pulse rate 66, blood pressure 146/66, respiratory rate 16, and saturating 93% on room air. HEENT: Head and neck examination is normal. No JVD. No thyromegaly. CHEST: Clear. Diminished breath sounds. CARDIAC: First sound and second sound normal. ABDOMEN: Soft and nontender. EXTREMITIES: There is mild ankle edema. The patient's lower extremities are weak and there is a pillow in between of them and he cushions on both of them. NEUROLOGIC: The patient is generally weak, bedridden, respond, open her eyes and back to her baseline mental status. LABORATORY DATA: The patient had sodium 137, potassium 4.6, chloride 105, bicarb 26, BUN 14, and creatinine 0.6. CBC shows white count 5, hemoglobin 9.4, hematocrit 28.4, and platelets 90. IMPRESSION AND PLAN: 1. Community-acquired pneumonia, urinary tract infections, Gram-negative. Continue meropenem. Follow up with ID consult. 2. Chronic atrial fibrillation. 3. Anemia. Continue Coumadin. We will monitor PT/INR. The patient also have thrombocytopenia from chronic hepatitis C, stable. 4. Cerebrovascular accident. 5. Hypertension. Continue current blood pressure medicines, Cozaar and Norvasc seems stable. 6. The patient had also edema in the lower extremities. She has thyroid nodule. She may need a biopsy, possible cancer. The question is what we can do about it, possible may be she receive radiation and that is it, high risk for surgery. We will discuss with the daughter. At this time, we will continue Lovenox. Continue Lasix. Follow up clinically. 7. Seizure disorders and anxiety. Continue Keppra 500 b.i.d. as well as Klonopin 1 mg b.i.d. Continue current medications. CURRENT MEDICATIONS: Mucomyst, Ambien, Colace, Cozaar, Desyrel, doxycycline, DuoNeb, Keppra, Klonopin, potassium 10, Lasix 20 p.o. daily IV, Lopressor 50 mg b.i.d., Lovenox 60 b.i.d., magnesium oxide, meropenem, Neurontin, Norvasc 5 mg p.o. daily, Pepcid 20 mg p.o. daily, and Tylenol p.r.n. Albin Forte MD [facility] # [id number]
--- NOTE | 2017-10-06 23:17 | PN ---
DATE: 10/06/2017 PULMONARY PROGRESS NOTE REFERRING PHYSICIAN: Albin Forte MD SUBJECTIVE: The patient is lying in the bed, head at 45 degrees. Night was unremarkable. Mild cough and sputum production. No nausea. No vomiting. No diarrhea. Did have bowel movement. No leg pain or leg swelling. PHYSICAL EXAMINATION: GENERAL: In no acute distress. VITAL SIGNS: Temperature is 98, heart rate is 68, respiratory rate is 18, blood pressure is 126/59, and pulse oximetry is 93% on 2 L nasal cannula. HEENT: Moist mucous membranes. Small oral cavity. NECK: Supple. No JVD. LUNGS: Have scattered rhonchi. HEART: S1 and S2. ABDOMEN: Soft and nontender. No organomegaly. EXTREMITIES: No edema. NEUROLOGIC: Awake and alert. Does follows simple command. MEDICATIONS: She is on Mucomyst 20% inhaled four times a day, Ambien 5 g at bedtime p.r.n., Colace 100 mg twice a day, Cozaar 50 mg twice a day, trazodone 50 mg at bedtime, doxycycline 100 mg twice a day, DuoNeb four times a day, Keppra 500 mg twice a day, Klonopin 1 mg twice a day p.r.n., potassium 10 mEq daily, Lasix 20 mg daily, metoprolol tartrate 50 mg twice a day, Lovenox 60 mg twice a day, magnesium oxide 200 mg twice a day, meropenem 1 g IV q. 8 hours, Neurontin 300 mg three times a day, Norvasc 5 mg daily, Pepcid 20 mg daily, Tylenol p.r.n. basis. No new changes in medication reported since yesterday. LABORATORY DATA: Reviewed and noted. IMPRESSION AND PLAN: Sepsis, has extended-spectrum beta-lactamase in the urine, baseline electrolytes; chronic obstructive lung disease; coronary artery disease; history of coronary stent; hyperlipidemia; cardiac arrhythmia; atrial fibrillation; history of diverticulosis; seizure disorder; anxiety disorder; cerebrovascular disease; hepatitis C; cirrhotic liver; ascites; dislocated hip; high risk of pressure ulcer. Pulmonary point of view, high risk of aspiration pneumonia. Continue to keep head at 45 degree, antibiotics, bronchodilator, fall precaution, anticoagulation therapy. Thank you and we will follow with you. Anushka Barreto MD [facility] # [id number]
[2017-10-07] MEDS: Meropenem IV 1 gm in NS 50 ML IVPB SCH (05:49)
[2017-10-07] MEDS: Enoxaparin 60 mg Syringe SC SCH ×2 (05:49→17:31)
[2017-10-07] MEDS: Acetylcysteine 20% Inhal Soln (4ml) IH SCH ×4 (07:16→20:21)
[2017-10-07] MEDS: Albuterol-Ipratrop 3 mg / 0.5 (3 ml) UD IH SCH ×4 (07:17→20:21)
[2017-10-07] MEDS: Potassium Chloride 10 mEq ER Tab PO SCH (08:00)
[2017-10-07] MEDS: Magnesium Oxide 400 mg Tab UD PO SCH ×2 (09:51→17:31)
--- NOTE | 2017-10-07 12:29 | PN ---
DATE: 10/07/2017 SUBJECTIVE: The patient is in bed, seen early this morning in room 302. She had a low-grade fever yesterday. PHYSICAL EXAMINATION: VITAL SIGNS: Today her temperature is 98, blood pressure is 100/60, and respirations are 16. HEENT: Examination of HEENT is unremarkable. NECK: Supple. LUNGS: Have decreased breath sounds. HEART: Normal S1 and S2. GASTROINTESTINAL: Abdominal examination is soft and nontender. LABORATORY DATA: Laboratory examination reveals a white count of 5.0, hemoglobin of 9 and platelets of 90. Chemistries reveals a BUN of 14, and creatinine of 0.6. Microbiology is noted. ASSESSMENT AND PLAN: This is a 76-year-old female with seizures, left-sided weakness, cerebrovascular accident and aortic aneurysm, diverticulitis, congestive heart failure, peripheral vascular disease, atrial fibrillation with sepsis with extended spectrum beta-lactamase Escherichia coli in the urine. She had received meropenem day number 9 and doxycycline day number 9. Review of orders are noted. We will discontinue the doxycycline and meropenem. Dr. Barreto's note is reviewed. The patient is at risk for developing nosocomial infection. We will follow the patient off of antibiotics. Review of microbiology reveals the urine. Repeat urine culture, there is yeast from the 10/04/2017. No further isolation is necessary and the patient did have extended spectrum beta-lactamase on 10/01/2017. Ricardo Burgos MD
--- NOTE | 2017-10-07 16:01 | CON ---
DATE: 10/07/2017 CHIEF COMPLAINT: Change in mental status. SUBJECTIVE: The patient is lying in bed at 45 degrees, that was unremarkable. Mild cough and sputum production. No vomiting. No diarrhea. She withdraws to localized noxious stimulus . She is on antibiotic for underlying sepsis, UTI and possible pneumonia mostly bedridden. PAST MEDICAL HISTORY: Hypertension, right-sided MCA with residual left-sided weakness, history of seizure disorder from right sided MCA, CVA, on Keppra, peripheral arterial disease, history of COPD, and atrial fibrillation. SOCIAL HISTORY: No history of alcohol, smoking, or illicit drug use. ALLERGIES: Allergic to PENICILLIN. REVIEW OF SYSTEMS: A 14-point review of systems is negative except as per the HPI. FAMILY HISTORY: Noncontributory. PHYSICAL EXAMINATION VITAL SIGNS: Afebrile, pulse rate of 62, blood pressure 115/67, and oxygen saturations 95% by nasal cannula. GENERAL: The patient is sitting up in bed, in no acute distress. HEENT: Atraumatic and normocephalic. PERRLA. Extraocular muscles intact. NECK: Supple. No JVD. No adenopathy noted. LUNGS: Scattered rhonchi. HEART: S1 and S2. Normal rate and rhythm. No murmurs, rubs, or gallops. ABDOMEN: Soft, nontender, and nondistended. Bowel sounds present. EXTREMITIES: No clubbing. No cyanosis. Peripheral pulses are 2+ bilaterally. NEUROLOGIC: The patient is alert and oriented to person, place, and knows the President of [facility]. Recall in 5 minutes is 0/3. Poor attention span, slow thought process. Cranial nerves II through XII are intact. There is a residual left facial droop from an old CVA. 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 She moves the right side. DTRs are 1+throughout. Coordination is intact on the right and difficult on the left due to paralysis from old CVA. Gait is deferred for now. LABORATORY DATA: Sodium 137, potassium 4.3, chloride 105, carbon dioxide 26, BUN 40, creatinine 0.6, and random glucose 85. ASSESSMENT AND PLAN: This is a 76-year-old woman with past medical history of dyslipidemia, hypertension, right MCA territory, residual left spastic weakness, chronic left facial droop from prior CVA, history of seizure disorder secondary to large right middle cerebral artery infarct,, history of chronic obstructive pulmonary disease, history of chronic pain syndrome, history of sepsis due to Escherichia coli, who presented initially to the hospital with change in mental status and found to have more lethargic, found to have urosepsis with underlying pneumonia and was on antibiotics. The altered mental status is secondary to underlying toxic metabolic encephalopathy from underlying sepsis superimposed underlying deconditioned state, history of cognitive impairment or residual left-sided weakness or prior CVA. CAT scan showed features of encephalomalacia in the right middle cerebral territory infarct, which is old. She is currently TCU for deconditioning and IV antibiotics. At this time, I recommend, 1. Follow up with ID's recommendations. 2. Monitor electrolytes and correct accordingly. 3. Avoid systolic drops in her blood pressure. 4. Delirium precautions. 5. Continue with PT/OT. Once again, thank you for this consult. Rell Bernstein MD cc:
--- NOTE | 2017-10-07 22:38 | PN ---
DATE: 10/07/2017 REFERRING PHYSICIAN: Albin Forte MD SUBJECTIVE: The patient is lying in the bed, head at 45 degrees, has a cervical collar. Mild cough and sputum production. No nausea. No vomiting. No diarrhea. No leg pain or leg swelling. Has a bowel movement yesterday. OBJECTIVE: GENERAL: In no acute distress.. VITAL SIGNS: Temperature is 98, heart rate is 62, respiratory rate is 18, blood pressure 125/77, pulse ox 99% on nasal cannula. HEENT: Moist mucous membranes. Has a cervical collar. LUNGS: Has scattered rhonchi and few crackles. HEART: S1 and S2. ABDOMEN: Soft and nontender. No organomegaly. EXTREMITIES: No edema. NEUROLOGIC: Awake and alert. Does follow simple command. MEDICATIONS: She is on Mucomyst 20% inhaled q.i.d., Ambien 5 mg at bedtime p.r.n., Colace 100 mg twice a day, Cozaar 50 mg twice a day, trazodone 50 mg at bedtime, DuoNeb q.i.d., Keppra 500 mg twice a day, clonazepam 1 mg twice a day p.r.n., potassium 10 mEq daily, Lasix 20 mg daily, metoprolol tartrate 50 mg twice a day, Lovenox 60 mg q.12 hours, magnesium oxide 400 mg twice a day, Neurontin 300 mg three times a day, Norvasc 5 mg daily, Pepcid 20 mg daily, and Tylenol p.r.n. basis. LABORATORY DATA: Reviewed and no new lab is available since yesterday. IMPRESSION AND PLAN: Sepsis, has a urinary tract infection with extended-spectrum beta-lactamase organism, chronic obstructive lung disease, coronary artery disease, coronary stent, hyperlipidemia, cardiac arrhythmia, atrial fibrillation, history of diverticulosis, seizure disorder, anxiety disorder, cerebrovascular disease in the past, hepatitis C, cirrhotic liver, ascites; hip dislocated, high risk for pressure ulcer, has a cervical collar, seen by Neurology. Continue bronchodilator. Thank you, and we will follow with you. Anushka Barreto MD
[2017-10-08] MEDS: Enoxaparin 60 mg Syringe SC SCH ×2 (06:12→18:17)
[2017-10-08 06:44] LABS: HEMOGLOBIN 8.8 g/dL (12.0-16.0); MEAN CELL VOLUME 90.4 fl (80.0-105.0); MEAN CORPUSCULAR HEMOGLOBIN 29.1 pg (25.0-35.0); MEAN CORPUSCULAR HGB CONC 32.2 g/dl (31.0-37.0); RBC 3.02 10^6/uL (3.5-6.1); RED CELL DISTRIBUTION WIDTH 17.6 % (11.5-14.5)
[2017-10-08 07:26] LABS: BLOOD UREA NITROGEN 14 mg/dL (7-21); CALCIUM 8.2 mg/dL (8.4-10.5); GFR AFRICAN-AMERICAN > 60; GFR NON-AFRICAN AMERICAN > 60
[2017-10-08] MEDS: Acetylcysteine 20% Inhal Soln (4ml) IH SCH ×4 (07:32→20:43)
[2017-10-08] MEDS: Albuterol-Ipratrop 3 mg / 0.5 (3 ml) UD IH SCH ×4 (07:32→20:43)
[2017-10-08 07:37] LABS: WHITE BLOOD COUNT 2.3 10^3/ul (4.5-11.0)
[2017-10-08] MEDS: Potassium Chloride 10 mEq ER Tab PO SCH (08:42)
--- NOTE | 2017-10-08 10:03 | PN ---
DATE: 10/07/2017 SUBJECTIVE: The patient seems comfortable. She responds to calling her name, but she goes back to sleep and this is going on and off, otherwise, no distress, does not seem to be in pain and she is not getting any pain medicines. Also the daughter reported that the patient has diarrhea. PHYSICAL EXAMINATION: VITAL SIGNS: On the , temperature 98.5, heart rate 62, blood pressure 127/55, respirations 15, and O2 saturation 99% on 2 L. HEENT: Head and Neck: Normal. JVD. No thyromegaly. CHEST: Clear. CARDIAC: First sound and second sound normal. ABDOMEN: Soft and nontender. EXTREMITIES: There is mild edema in the left leg and left arm probably from positioning. The patient does not move the lower extremity and barely low movement of upper extremity. NEUROLOGIC: As above. LABORATORY DATA: Sodium 127, potassium 4.3, chloride 105, bicarbonate , BUN 14, and creatinine 0.6. IMPRESSION AND PLAN: 1. Diarrhea and loose bowel movements: We are going to have stool Clostridium difficile. We will see the results first. We will consider giving her Flagyl. 2. She does have history of cerebrovascular accident, hypertension, and hypercholesterolemia. Continue current therapy. 3. Gram-negative urinary tract infection plus community-acquired pneumonia. The patient got the last dose of meropenem and we will monitor her condition after that. 4. Chronic atrial fibrillation and history of cerebrovascular accidents in the past. Continue Lovenox 60 q.12 hours. 5. Hypertension: Continue Cozaar 50 mg b.i.d. Continue Norvasc 5 mg p.o. daily. 6. Chronic obstructive pulmonary disease: Continue nebulizer treatment plus Mucomyst. 7. Seizure disorder: The patient will be maintained on Keppra plus Klonopin. We will follow up clinically. We will consider also neuro consultation, maybe we will use the dose of Klonopin 2.5 b.i.d. The patient otherwise seems stable and comfortable. We will also repeat the labs in the morning. Albin Forte MD
[2017-10-08] MEDS: Magnesium Oxide 400 mg Tab UD PO SCH ×2 (10:12→18:17)
--- NOTE | 2017-10-08 19:36 | PN ---
DATE: 10/08/2017 REFERRING PHYSICIAN: Albin Forte MD SUBJECTIVE: The patient is lying in the bed, head at 45 degrees. Has a cervical collar. No nausea, no vomiting, no diarrhea. Mild cough though. No leg pain or leg swelling. OBJECTIVE: GENERAL: No acute distress. VITAL SIGNS: Temperature is 98, heart rate 69, respiratory rate is 20, blood pressure 117/53, pulse ox 98% on 2 liters nasal cannula. HEENT: Moist mucous membranes. Small oral cavity. LUNGS: Has fair airflow with few rhonchi. HEART: S1 and S2. ABDOMEN: Soft, nontender, no organomegaly. EXTREMITIES: No edema. NEUROLOGIC: Awake, alert and follows simple command. MEDICATIONS: She is on Mucomyst 20% inhaled four times daily, Ambien 5 mg at bedtime p.r.n., Colace 100 mg twice a day, Cozaar 50 mg twice a day, trazodone 50 mg at bedtime, DuoNeb four times daily, Keppra 500 mg twice a day, clonazepam 0.5 mg twice a day, potassium 10 mEq daily, Lasix 20 mg daily, metoprolol tartrate 50 mg twice a day, Lovenox 60 mg twice a day, magnesium oxide 400 mg twice a day, gabapentin 300 mg three times a day, Norvasc 5 mg daily, Pepcid 20 mg daily, Tylenol on p.r.n. basis. LABORATORY DATA: Shows hemoglobin 8.8, hematocrit 27.3, WBC 2.3, platelet is 71. Sodium 137, potassium 4.2, chloride 100, bicarbonate 31, BUN 14, creatinine 0.6, glucose 75, calcium 8.2. IMPRESSION AND PLAN: Sepsis, urinary tract infection with extended-spectrum beta-lactamases organism, chronic obstructive lung disease, coronary artery disease, coronary stent, hyperlipidemia, cardiac arrhythmia, atrial fibrillation, history of diverticulosis, seizure disorder, anxiety disorder, history of cerebrovascular accident, hepatitis C, cirrhotic liver, ascites, has a hip dislocation, high risk for pressure ulcers. Spoke to therapist. Continue present care. Keep head at 45 degrees. Bronchodilator, aspiration precaution, gastric prophylaxis, sequential compression devices to lower extremities. Continue therapy. Thank you and we will follow with you. Anushka Barreto MD [facility] # [id number]
--- NOTE | 2017-10-08 22:39 | PN ---
DATE: 10/08/2017 SUBJECTIVE: Patient is in bed in no acute distress. Patient was seen early this morning in room 302. PHYSICAL EXAMINATION VITAL SIGNS: Temperature is 97, blood pressure is 130/50, respiratory rate of 18, heart rate of 69. HEENT: Unremarkable. NECK: Supple. LUNGS: Have decreased breath sounds. HEART: Normal S1 and S2. ABDOMEN: Soft. LABORATORY EXAMINATION: Reveals a white count of 2.3, hemoglobin of 8, platelets of 71. BUN of 14 and creatinine of 0.6. ASSESSMENT AND PLAN: This is a 76-year-old female with seizures, left-sided weakness, cerebrovascular accident, aortic aneurysm, diverticulitis, congestive heart failure, peripheral vascular disease, atrial fibrillation, sepsis with extended-spectrum beta-lactamases, Escherichia coli in the urine. She had received meropenem, doxycycline. Currently off of antibiotics, afebrile. Review of orders confirms the patient. We will follow with you. Ricardo Burgos MD
--- NOTE | 2017-10-08 23:43 | PN ---
SUBJECTIVE: The patient is seen today. She responds to calling her name, she open her eyes, but she is very weak, in no respiratory distress, seems comfortable. She is off of pain medication at this time. PHYSICAL EXAMINATION: VITAL SIGNS: Temperature is 97.8, heart rate 69, blood pressure 139/68, respiration 18, and saturation 98% on 2 liters. HEENT: Head and neck normal. No JVD. No thyromegaly. CHEST: Clear. CARDIAC: First sound and second sound normal. Slight murmur. ABDOMEN: Soft and nontender. EXTREMITIES: No edema. There is trace edema in the foot. NEUROLOGIC: The patient does not move upper and lower extremities. She has neck collar on and she is stable, which is chronic baseline condition. LABORATORY DATA: White count 2.3, hemoglobin 8.8, hematocrit 27.3, and platelets 71,000. Sodium 137, potassium 4.2, chloride 100, bicarb 31, BUN 14, creatinine 0.6, calcium 8.2. IMPRESSION AND PLAN: 1. Urinary tract infections, community-acquired pneumonia. She is off antibiotics. Spoke with her daughter about transferring her, the daughter has mentioned the patient has diarrhea. We will order stool Clostridium difficile, it is still pending. We will continue at this moment. We will discontinue Lovenox and hold off on any thyroid biopsy at this time for this chronically ill patient. 2. Chronic atrial fibrillation, hypertension. We will continue blood pressure medications. She is getting Norvasc, Lopressor, and Cozaar stable for atrial fibrillation. The patient will have Lovenox 60 q.12 hours. We will start Coumadin 6 mg tonight and tomorrow and order PT/INR basis. We will discontinue Lovenox eventually as long as there is no biopsy will be done. 3. Cerebrovascular accident, seizure disorder. Continue Keppra 500 b.i.d. 4. Chronic anxiety. 5. Chronic back pain. 6. Depression. Continue Desyrel, Klonopin. Decrease Klonopin instead of 1 mg to 0.5 b.i.d. We will follow up on that. 7. Chronic obstructive pulmonary disease. Continue Mucomyst. Continue nebulizer treatment. The patient is otherwise stable. We will check the Clostridium difficile and if it is negative, we will schedule the patient to be transferred back home on Coumadin. Albin Forte MD [facility] # [id number]
[2017-10-09] MEDS: Enoxaparin 40 mg Syringe SC SCH ×2 (06:50→17:57)
[2017-10-09] MEDS: Acetylcysteine 20% Inhal Soln (4ml) IH SCH ×4 (08:04→21:09)
[2017-10-09] MEDS: Albuterol-Ipratrop 3 mg / 0.5 (3 ml) UD IH SCH ×4 (08:04→21:10)
[2017-10-09] MEDS: Potassium Chloride 10 mEq ER Tab PO SCH (09:00)
[2017-10-09] MEDS: Magnesium Oxide 400 mg Tab UD PO SCH ×2 (09:24→17:59)
[2017-10-09] MEDS ORDERED: Enoxaparin 40 mg Syringe SC SCH (10:00)
--- NOTE | 2017-10-09 15:41 | PN ---
DATE: 10/09/2017 SUBJECTIVE: The patient is in bed in no acute distress, nontoxic. The patient was seen earlier this morning. PHYSICAL EXAMINATION: VITAL SIGNS: Temperature is 97, blood pressure is 113/70, respiratory rate 16, and heart rate of 58. HEENT: Unremarkable. NECK: Supple. LUNGS: Have decreased breath sounds. HEART: Normal S1 and S2. ABDOMEN: Soft and nontender. No organomegaly. No rebound. No guarding. No masses. LABORATORY EXAMINATION: Are as noted. BUN of 4 and creatinine of 0.6. ASSESSMENT AND PLAN: This is a 76-year-old female with seizures, left-sided weakness, cerebrovascular accident, aortic aneurysm, diverticulitis, congestive heart failure, peripheral vascular disease, atrial fibrillation, sepsis with extended-spectrum beta-lactamase Escherichia coli in the urine and received meropenem and doxycycline; now off of antibiotics. The patient is at risk for developing nosocomial infections and we will follow with you. Ricardo Burgos MD
[2017-10-09] MEDS: oxyCODONE 10 mg Immediate Release Tab PO PRN (18:57)
--- NOTE | 2017-10-10 01:58 | PN ---
DATE: 10/09/2017 PULMONARY PROGRESS NOTE REFERRING PHYSICIAN: Dr. Forte. SUBJECTIVE: The patient is lying in the bed, head at 45 degrees. Night was unremarkable. Doing well in therapy. No seizures. Mild cough. No nausea. No vomiting. No diarrhea. No leg pain or leg swelling. PHYSICAL EXAMINATION GENERAL: In no acute distress. VITAL SIGNS: Temperature 98, heart rate 76, respiratory rate 18, blood pressure 147/59, pulse ox 99% on 2 liters nasal cannula. HEENT: Moist mucous membrane. LUNGS: Have fair airflow with few rhonchi. HEART: S1 and S2. ABDOMEN: Soft, nontender. No organomegaly. EXTREMITIES: No edema. NEUROLOGIC: Awake and alert, follow simple commands. MEDICATIONS: She is on Mucomyst 20% inhaled 4 times a day, Ambien 5 mg at bedtime p.r.n., Colace 100 mg twice a day, Coumadin 6 mg will be given today, Cozaar 50 mg twice a day, Trazodone 50 mg at bedtime, albuterol/Atrovent nebulizer 4 times a day, Keppra 500 mg twice a day, Klonopin 0.5 mg twice a day, potassium 10 mEq daily, Lasix 20 mg daily, metoprolol tartrate 50 mg twice a day, Lovenox 40 mg twice a day, magnesium oxide 40 mg twice a day, gabapentin 3 mg 3 times a day, Norvasc 5 mg daily, oxycodone immediate release 10 mg q. 6 hours p.r.n. Pepcid 20 mg daily, Tylenol p.r.n. basis. LABORATORY DATA: No new lab is available since yesterday. IMPRESSION AND PLAN: Sepsis, urinary tract infection with extended-spectrum beta-lactamase organism, chronic obstructive lung disease, coronary artery disease, coronary stent, hyperlipidemia, cardiac arrhythmia, atrial fibrillation, history of diverticulosis, seizure disorder, anxiety disorder, history of cerebrovascular accident, hepatitis C, history of liver disease, ascites, dislocated hip, high risk for pressure ulcer. Continue bronchodilator. Keep head at 45 degrees. Gastric prophylaxis. Sequential compression devices to lower extremities. Aspiration precaution. Continue therapy. Seizure precaution. Thank you, and we will follow with you. Anushka Barreto MD [facility] # [id number]
[2017-10-10] MEDS: Enoxaparin 40 mg Syringe SC SCH ×2 (06:08→17:35)
[2017-10-10] MEDS: Acetylcysteine 20% Inhal Soln (4ml) IH SCH ×3 (07:34→15:58)
[2017-10-10] MEDS: Albuterol-Ipratrop 3 mg / 0.5 (3 ml) UD IH SCH ×3 (07:35→15:59)
[2017-10-10] MEDS: Potassium Chloride 10 mEq ER Tab PO SCH (08:12)
--- NOTE | 2017-10-10 10:52 | PN ---
DATE: 10/10/2017 SUBJECTIVE: The patient is in bed, in no acute distress, nontoxic. PHYSICAL EXAMINATION: VITAL SIGNS: Temperature is 98, blood pressure is 140/60, respiratory rate of 18, and heart rate of 76. HEENT: Unremarkable. NECK: Supple. LUNGS: Decreased breath sounds. HEART: Normal S1 and S2. ABDOMEN: Soft. LABORATORY DATA: Reveals the white count of 2.3 and hemoglobin of 8. BUN of 14 and creatinine of 0.6. Microbiology is noted. ASSESSMENT AND PLAN: This is a 76-year-old female with seizures, left-sided weakness, cerebrovascular accident, aortic aneurysm, diverticulitis, congestive heart failure, peripheral vascular disease, atrial fibrillation, sepsis with an extended-spectrum beta-lactamase Escherichia coli in the urine and received meropenem and doxycycline; currently off of antibiotics, and afebrile. Review of orders confirmed the patient to be off of antibiotics. Afebrile. The patient is at risk for developing nosocomial infections. Dr. Barreto's note from yesterday is reviewed. We will follow with you. Ricardo Burgos MD
[2017-10-10] MEDS: oxyCODONE 10 mg Immediate Release Tab PO PRN (11:10)
[2017-10-10] MEDS: Magnesium Oxide 400 mg Tab UD PO SCH ×2 (11:13→17:40)
[2017-10-10 12:00] LABS: HEMOGLOBIN 9.1 g/dL (12.0-16.0); MEAN CELL VOLUME 92.7 fl (80.0-105.0); MEAN CORPUSCULAR HEMOGLOBIN 29.1 pg (25.0-35.0); MEAN CORPUSCULAR HGB CONC 31.4 g/dl (31.0-37.0); MEAN PLATELET VOLUME 9.9 fl (7.0-11.0); RBC 3.13 10^6/uL (3.5-6.1); RED CELL DISTRIBUTION WIDTH 17.7 % (11.5-14.5); WHITE BLOOD COUNT 3.3 10^3/ul (4.5-11.0)
[2017-10-10 12:30] LABS: PROTHROMBIN TIME 12.9 SECONDS (9.4-12.5)
[2017-10-10 12:31] LABS: INR 1.17 (0.93-1.08)
[2017-10-10] MEDS ORDERED: oxyCODONE 5 mg Immediate Release Tab PO PRN (14:28)
--- NOTE | 2017-10-11 00:16 | PN ---
DATE: 10/10/2017 SUBJECTIVE: The patient is stable, clinically no distress, and seems in less pain. She is more sleepy today. She has no other complaint. PHYSICAL EXAMINATION VITAL SIGNS: Temperature is 97.4, heart rate is 68, blood pressure is 144/61, respirations are 18, and oxygen saturation is 99% on 2 liters. HEENT: Head and neck exam are normal. NECK: Soft neck collar on the patient. CHEST: Clear. CARDIAC: First and second sounds are normal. ABDOMEN: Soft and nontender. EXTREMITIES: Trace mild edema in the foot area. NEUROLOGIC: The patient is bedridden, not moving her lower extremity or upper. LABORATORY STUDIES: The patient had white count of 3.3, hemoglobin of 9.1, hematocrit of 29, and platelets of 60. PT/INR of 1 and INR of 1.17. MEDICATIONS: She received Coumadin 6 mg. IMPRESSION AND PLAN: 1. Chronic cerebrovascular accident, thrombocytopenia, and the patient is bedridden. Continue supportive care for that. 2. Urinary tract infection, possible pneumonia community-acquired. The patient is off meropenem, now she seems doing well. 3. Chronic obstructive pulmonary disease. She continue Mucomyst and continue inhaled bronchodilators. The patient is doing better and stable. No distress. 4. Hypertension and paroxysmal atrial fibrillation. Continue Coumadin. INR nontherapeutic. We will give Coumadin 7.5 mg. Repeat PT and INR in the morning. 5. The patient seems little lethargic more than usual. We will called off on any pain medicine and will reduce the pain medicine to 4 mg q. 6 hours. p.r.n. Continue Neurontin and continue Keppra for seizure disorders. 6. Continue current therapy. Discussed with the daughter in detail. The patient will be discharged soon. Albin Forte MD
--- NOTE | 2017-10-11 02:45 | PN ---
DATE: 10/10/2017 PULMONARY PROGRESS NOTE REFERRING PHYSICIAN: Dr. Forte. SUBJECTIVE: Patient is lying in the bed, head at 45 degrees. 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 Night was unremarkable. Mild cough and shortness of breath. No nausea. No vomiting. No diarrhea. No leg pain or leg swelling. OBJECTIVE: GENERAL: In no acute distress. VITAL SIGNS: Temperature is 98, heart rate is 60, respiratory rate is 18, blood pressure is 116/52, pulse ox is 100% on nasal cannula. HEENT: Moist mucous membranes. Small oral cavity. NECK: Supple. No JVD. LUNGS: Few scattered rhonchi. HEART: S1 and S2. ABDOMEN: Soft, nontender. No organomegaly. EXTREMITIES: There is no edema. NEUROLOGIC: Awake, alert, follows simple commands. MEDICATIONS: She is on Mucomyst inhaled q.i.d., Ambien 5 mg at bedtime p.r.n., Colace 100 mg twice a day, Coumadin 6 mg, Cozaar 50 mg twice a day, trazodone 50 mg at bedtime, DuoNeb q.i.d., Keppra mg p.o. twice a day, Klonopin 0.5 mg twice a day, potassium 10 mEq daily, Lasix 20 mg daily, metoprolol tartrate 50 mg twice a day, Lovenox 40 mg twice a day, magnesium oxide 400 mg twice a day, Neurontin 300 mg three times a day, Norvasc 5 mg daily, oxycodone immediate release 5 mg q. 6 hours p.r.n., Pepcid 20 mg daily, Tylenol on p.r.n. basis. LABORATORY DATA: Shows hemoglobin 9.1, hematocrit 29.0, WBC 3.3, platelet count is 60. INR is 1.17. IMPRESSION AND PLAN: Sepsis, urinary tract infection with Escherichia coli which is extended spectrum beta-lactamases, chronic obstructive lung disease, coronary artery disease, coronary stent, hyperlipidemia, cardiac arrhythmia, atrial fibrillation, history of diverticulosis, seizure disorder, anxiety disorder, history of cerebrovascular accident, hepatitis C, liver disease, ascites, dislocation of the hip joint. From pulmonary point of view, doing okay. Keep head at 45 degrees, bronchodilator, antiseizure medications. Continue therapy. Continue anticoagulation. Follow up INR in the morning. Thank you and we will follow with you. Anushka Barreto MD
--- NOTE | 2017-10-11 02:49 | PN ---
DATE: 10/09/2017 SUBJECTIVE: Emilia is lying in bed, comfortable, and in no distress. She opens her eyes when calling her name; otherwise, no new complaints. No diarrhea. She does not seem to be in much pain; however, daughter mentions that she does complain of pain to her. The patient is otherwise stable clinically. No acute distress. PHYSICAL EXAMINATION: VITAL SIGNS: Temperature 97.4, heart rate 76, blood pressure 145/69, respirations 18, and saturation 99% on 2 L nasal cannula. HEAD AND NECK: Normal. No JVD. No thyromegaly. CHEST: Clear, good air entry. CARDIOVASCULAR: First sound and second sound normal. ABDOMEN: Soft and nontender. EXTREMITIES: No edema. NEUROLOGIC: The patient does not move her upper extremity, slight movement of the upper, but otherwise she is bedridden and there is a pillow between her legs and heel cushions in both heels. LABORATORY DATA: None. Her labs ordered tomorrow. IMPRESSION AND PLAN: 1. Urinary tract infection, community-acquired pneumonia. The patient off antibiotics. She is stable. Continue nebulizer treatment, continue oxygen, and continue Mucomyst. 2. Generalized weakness, bedridden. The patient also had a hip dislocation. cerebrovascular accident. Continue current therapy. Continue gastrointestinal and deep venous thrombosis prophylaxis. 3. Hypertension, depression, and chronic atrial fibrillation. Continue Coumadin, Cozaar, and Norvasc. The patient seems stable on current medications. We will followup and we will continue current therapy. 4. Insomnia. According to the daughter, she does complain of back pain and joint pain, we will give oxycodone 10 mg for now and we will see how she do with that and continue Coumadin on daily basis. We will repeat PT/INR in the morning and continue current therapy. Albin Forte MD
[2017-10-11] MEDS: Enoxaparin 40 mg Syringe SC SCH ×2 (05:41→18:39)
[2017-10-11] MEDS: Albuterol-Ipratrop 3 mg / 0.5 (3 ml) UD IH SCH ×4 (07:58→19:21)
[2017-10-11] MEDS: Acetylcysteine 20% Inhal Soln (4ml) IH SCH ×4 (07:58→19:21)
[2017-10-11] MEDS: Potassium Chloride 10 mEq ER Tab PO SCH (07:59)
[2017-10-11] MEDS: Magnesium Oxide 400 mg Tab UD PO SCH ×2 (09:56→18:40)
[2017-10-11 11:30] VITALS: RESP 19; O2SAT 98
[2017-10-11 11:44] LABS: INR 1.31 (0.93-1.08); PROTHROMBIN TIME 14.5 SECONDS (9.4-12.5)
--- NOTE | 2017-10-11 18:56 | PN ---
DATE: 10/11/2017 SUBJECTIVE: The patient is in bed, no acute distress, nontoxic. PHYSICAL EXAMINATION: VITAL SIGNS: Temperature is 97, blood pressure is 110/50 and respiratory rate of 16. HEENT: Unremarkable. NECK: Supple. LUNGS: Have decreased breath sounds. HEART: Normal S1 and S2. ABDOMEN: Soft and nontender. LABORATORY DATA: Reveals a white count of 3.3, hemoglobin of 9 and platelets of 60. Coagulation is noted. BUN of 14 and creatinine of 0.6. ASSESSMENT AND PLAN: A 75-year-old female with seizures, left-sided weakness, cerebrovascular accident, aortic aneurysm, diverticulitis, congestive heart failure, peripheral vascular disease, atrial fibrillation, sepsis with extended-spectrum beta-lactamase, Escherichia coli in the urine and we discontinued the meropenem and doxycycline has been completed. Currently, now off of antibiotics, afebrile and the patient has risk for developing nosocomial infections and we will follow up with you. Ricardo Burgos MD
--- NOTE | 2017-10-11 22:03 | PN ---
DATE: 10/11/2017 REFERRING PHYSICIAN: Albin Forte MD SUBJECTIVE: She is lying in the bed, head at 45 degrees, has cervical collar and nasal canula oxygen, sleepy, arousable. No cough. No sputum production. No nausea. No vomiting. No diarrhea. No leg pain or leg swelling. OBJECTIVE: GENERAL: In no acute distress. VITAL SIGNS: Temperature 98, heart rate is 70, respiratory rate is 19, blood pressure 110/54, and pulse oximetry is 98% on room air. HEENT: Moist mucous membrane. Small oral cavity. NECK: Supple. No JVD. LUNGS: Have a fair airflow with rhonchi. HEART: S1 and S2. ABDOMEN: Soft and nontender. No organomegaly. EXTREMITIES: There is no edema. NEUROLOGIC: Sleepy, arousable. MEDICATIONS: She is on Mucomyst 20% inhaled q.i.d.; also Ambien 5 mg h.s. p.r.n.; Colace 100 mg twice a day; Coumadin 7.5 mg given today; Cozaar 50 mg twice a day; trazodone 50 mg h.s.; DuoNeb q.i.d.; Keppra 500 mg twice a day; clonazepam 0.5 mg twice a day; potassium 10 mEq daily; Lasix 20 mg daily; metoprolol tartrate 50 mg twice a day; Lovenox 40 mg twice a day; magnesium oxide 400 mg twice a day; gabapentin 300 mg three times a day; oxycodone immediate release 5 mg q. 6 hours p.r.n.; Pepcid 20 mg daily, and Tylenol p.r.n. LABORATORY DATA: Shows INR today of 1.31. IMPRESSION AND PLAN: Sepsis, urinary tract infection, she has ESBL E. coli in the urine, chronic obstructive lung disease, coronary artery disease, history of coronary stent, hyperlipidemia, cardiac arrhythmia, atrial fibrillation, diverticulosis, seizure disorder, anxiety disorder, history of cerebrovascular accident, hepatitis C, history of ascites, and dislocation of the hip joint. From pulmonary point of view, doing okay, keep head at 45 degrees, bronchodilator, antibiotics as per Infectious Diseases, anticoagulation, gastric prophylaxis. Continue therapy. Thank you and we will follow with you. Anushka Barreto MD [facility] # [id number]
--- NOTE | 2017-10-12 02:02 | PN ---
DATE: SUBJECTIVE: The patient is comfortable, no distress. No pain, no nausea, no vomiting. She had a breakfast, need assistance and seems comfortable. PHYSICAL EXAMINATION VITAL SIGNS: Temperature 97, heart rate 70, blood pressure 110/54, respirations 19 and saturation 98% on room air. HEENT: Head and neck examination is normal. No JVD. The patient had soft collar. No thyromegaly. CHEST: Clear. CARDIAC: First sound and second sound normal. ABDOMEN: Soft and nontender. EXTREMITIES: There is trace edema in the foot area, but the patient has heel cushions, she does not move her lower extremities. NEUROLOGICAL: She is more awake than before, but she is still sleep most of the time. She does not move any of her extremities. LABORATORY DATA: PT of 14.5 and INR of 1.31. The patient had Coumadin today 7.5 mg and we will repeat PT/INR tomorrow. The patient also getting Lovenox. IMPRESSION: 1. Generalized weakness, deconditioning. Continue current therapy, assistance with meals. She is off antibiotics now. 2. Chronic atrial fibrillation. The patient's PT/INR still low, we will give 7.5 mg Coumadin today and repeat PT/INR tomorrow. 3. Chronic obstructive pulmonary disease. Continue DuoNeb inhalers. 4. Hypertension, stable. Continue Norvasc 5 mg p.o. daily. Continue Lopressor 50 mg b.i.d. The patient seems stable and these two drugs. Will discuss with daughter about the medications, also she get Cozaar 50 mg b.i.d. We will talk to the daughter about the current medications for blood pressure to be resumed. 5. Edema, lower extremity. She is already take Lasix 20 mg plus potassium 10, seems doing okay in that. 6. Chronic back pain, chronic osteoarthritis. The patient decreased her oxycodone to 5 mg, because of her sleepiness and more lethargic and we will give it p.r.n. Continue current therapy. 7. Keppra: The patient have history of seizure disorder. Continue Keppra 500 mg b.i.d. PLAN: Continue current therapy, current medications, Mucomyst at night nebulizer, Ambien 5 mg at bedtime, Colace, Coumadin, Cozaar 50 mg b.i.d., Desyrel 50 mg p.o. at bedtime, DuoNeb, Keppra 500 mg b.i.d., Klonopin 0.5 mg b.i.d., which has been decreased. We will do make it p.r.n., K-Luiza 10, Lasix 20, Lopressor 50 b.i.d., Lovenox 40 subq daily, mag-oxide 400 b.i.d., Neurontin 300 t.i.d., Norvasc 5 mg p.o. daily, oxycodone 5 mg q. 6 hours p.r.n., Pepcid 20 p.o. daily, Tylenol 650 q. 4 hours p.r.n. Continue current therapy. The patient is stable. We will monitor PT/INR, will be discharged tomorrow. Discuss with her daughter, discuss about the conditions. Albin Forte MD
[2017-10-12] MEDS: Enoxaparin 40 mg Syringe SC SCH ×2 (05:26→17:10)
[2017-10-12] MEDS: Acetylcysteine 20% Inhal Soln (4ml) IH SCH ×3 (07:59→14:31)
[2017-10-12] MEDS: Albuterol-Ipratrop 3 mg / 0.5 (3 ml) UD IH SCH ×3 (07:59→14:30)
[2017-10-12] MEDS: Potassium Chloride 10 mEq ER Tab PO SCH (09:28)
[2017-10-12] MEDS: Magnesium Oxide 400 mg Tab UD PO SCH ×2 (09:29→17:11)
--- NOTE | 2017-10-12 14:10 | PN ---
DATE: 10/12/2017 SUBJECTIVE: The patient is in bed, in no acute distress, nontoxic. No fevers or chills. No nausea. PHYSICAL EXAMINATION: VITAL SIGNS: Temperature is 98. HEENT: Unremarkable. NECK: Supple. LUNGS: Decreased breath sounds. HEART: Normal S1 and S2. ABDOMEN: Soft. LABORATORY DATA: Reviewed. ASSESSMENT AND PLAN: This is a 76-year-old female with left-sided weakness, cerebrovascular accident, history of seizure, aortic aneurysm, diverticulitis, congestive heart failure, peripheral vascular disease, atrial fibrillation, sepsis, extended-spectrum beta-lactamase and Escherichia coli in the urine, and has completed the meropenem, doxycycline. Currently, now off of antibiotics, afebrile and the patient has risk for developing nosocomial infections. Ricardo Burgos MD
[2017-10-12 14:25] LABS: INR 1.75 (0.93-1.08); PROTHROMBIN TIME 19.3 SECONDS (9.4-12.5)
[2017-10-12 17:12] VITALS: BP 106/52; PULSE 98
[2017-10-12 18:46] VITALS: TEMP 99.2
--- NOTE | 2017-10-12 22:34 | PN ---
PULMONARY PROGRESS NOTE DATE: 10/12/2017 REFERRING PHYSICIAN: Albni Forte MD SUBJECTIVE: She is lying in the bed and head at 45 degrees. Night was unremarkable. Not much cough. No sputum production. No nausea. No vomiting, diarrhea, leg pain, or leg swelling. PHYSICAL EXAMINATION: GENERAL: In no acute distress. VITAL SIGNS: T-max 100.3, heart rate is 98, respiratory rate is 20, blood pressure is 106/52, and pulse ox is 98% on 2 L nasal cannula. HEENT: Small oral cavity. Crowded airway. NECK: Supple. No JVD. LUNGS: Has a fair airflow with rhonchi. HEART: S1 and S2. ABDOMEN: Soft and nontender. No organomegaly. EXTREMITIES: There is no edema. NEUROLOGIC: arousable, and follow simple commands. MEDICATIONS: She is on Mucomyst 20% inhaled q.6 hours, Ambien 5 mg at bedtime p.r.n., Colace 100 mg twice a day, Coumadin 4 mg will be given today, Cozaar 50 mg twice a day, trazodone 50 mg at bedtime, DuoNeb q.6 hours, Keppra 500 mg twice a day, Klonopin 0.5 mg twice a day, potassium 10 mEq daily, Lasix 20 mg daily, metoprolol tartarate 50 mg twice a day, Lovenox 40 mg twice a day, magnesium oxide 400 mg twice a day, Neurontin 300 mg three times a day, Norvasc 5 mg daily, oxycodone immediate release 5 mg q.6 hours p.r.n., Tylenol p.r.n. basis, and Pepcid 20 mg daily. LABORATORY DATA: Reviewed. INR today 1.75. IMPRESSION AND PLAN: Sepsis, urinary tract infection, has extended-spectrum beta-lactamases Escherichia coli in the urine, chronic obstructive lung disease, coronary artery disease, history of coronary stent, hyperlipidemia, cardiac arrhythmia, atrial fibrillation, diverticulosis, seizure disorder, anxiety disorder, history of cerebrovascular accident, hepatitis C, and history of ascites. Pulmonary point of view, she is doing okay, has a low-grade fever, and seen by Dr. Burgos. Pulmonary point of view, bronchodilator, keep head at 45 degrees, and aspiration precaution. Thank you and we will follow with you. Anushka Barreto MD [facility] # [id number]
--- NOTE | 2017-10-14 01:50 | DS ---
HISTORY OF PRESENT ILLNESS: The patient was admitted for continuation of IV antibiotic meropenem to TCU. She finished it. She is clinically stable. She has no new complaint now. She was getting maintaining of her therapy, monitoring her PT/INR. She seems sleepy, she has been on that level; otherwise she has no new complaint. She open her eyes when I talk to her. There is no pain, she does not seems to be in pain. No respiratory distress, sitting in bed comfortable positions. She is bedridden and seems stable. DISCHARGE PHYSICAL EXAMINATION: VITAL SIGNS: Patient had temperature of 99.2, heart rate 98, blood pressure 106/52. HEAD AND NECK: There is no change; neck collar on; no JVD. CHEST: Seems clear. CARDIAC: First and second sounds are normal. ABDOMEN: Soft and nontender. EXTREMITIES: There is mild edema on the left side, very mild; otherwise lower extremity she does not move it. She has pillow in between and heel cushions on both lower feet. NEUROLOGICAL: Mental status is same. There is no change, no distress, no pain and she does not move any of her extremities has been. DISCHARGE DIAGNOSES: 1. Urinary tract infections, possible pneumonia, she finished meropenem as per Infectious Disease consult Dr. Burgos. Of course, we will absorb for any recurrence of pneumonia. She runs low grade fevers. We will monitor that. We will call the daughter about recheck the fever and temperature, if any fever, we will bring the patient back for evaluations. 2. Anemia, thrombocytopenia, history of hepatitis C, liver cirrhosis, stable. 3. History of hypertension. Blood pressure runs really on the low side 100 usually runs higher, we will hold off blood pressure for less than 100. The patient will be seen by the visiting nurse. 4. Chronic anemia. She tried colonoscopy couple of times is poor preparations. 5. Chronic atrial fibrillations. Her PT/INR 1.75. We will give her Coumadin tonight and repeat PT/INR as outpatient. 6. She has hip dislocation left side. 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 She does have pain medications p.r.n. and we will monitor the patient clinically, encourage p.o. intake and we will follow up. Albin Forte MD [facility] # [phone]
== END 2017-10-12 19:48 | disposition home or self-care (01) | DRG 871 ==
LOC: TRCU 17:17
PROVIDERS: ADMIT Internal Medicine; ATTEND Internal Medicine
PROC: 3E0F7GC Introduction of Other Therapeutic Substance into Respiratory Tract, Via Natural or Artificial Opening (ICD-10-PCS; 2017-10-04)
PROC: F08Z4FZ Home Management Treatment using Assistive, Adaptive, Supportive or Protective Equipment (ICD-10-PCS; principal; 2017-10-07)
DX: A41.9 Sepsis, unspecified organism (principal); J18.9 Pneumonia, unspecified organism; G92 Toxic encephalopathy; I11.0 Hypertensive heart disease with heart failure; G93.89 Other specified disorders of brain; D69.59 Other secondary thrombocytopenia; I50.9 Heart failure, unspecified; I48.0 Paroxysmal atrial fibrillation; I69.354 Hemiplegia and hemiparesis following cerebral infarction affecting left non-dominant side; Z79.2 Long term (current) use of antibiotics; J44.0 Chronic obstructive pulmonary disease with (acute) lower respiratory infection; N39.0 Urinary tract infection, site not specified; I48.2 Chronic atrial fibrillation; G40.909 Epilepsy, unspecified, not intractable, without status epilepticus; I69.392 Facial weakness following cerebral infarction; G89.4 Chronic pain syndrome; B18.2 Chronic viral hepatitis C; I25.10 Atherosclerotic heart disease of native coronary artery without angina pectoris; I71.4 Abdominal aortic aneurysm, without rupture; M47.812 Spondylosis without myelopathy or radiculopathy, cervical region; I73.9 Peripheral vascular disease, unspecified; D64.9 Anemia, unspecified; K74.60 Unspecified cirrhosis of liver; E78.00 Pure hypercholesterolemia, unspecified; F32.9 Major depressive disorder, single episode, unspecified; F41.9 Anxiety disorder, unspecified; Z74.01 Bed confinement status; G47.00 Insomnia, unspecified; Z16.12 Extended spectrum beta lactamase (ESBL) resistance; B96.20 Unspecified Escherichia coli [E. coli] as the cause of diseases classified elsewhere; E04.1 Nontoxic single thyroid nodule; Z79.01 Long term (current) use of anticoagulants; Z95.5 Presence of coronary angioplasty implant and graft; Z88.0 Allergy status to penicillin

== ENCOUNTER 2017-10-13 15:36 | Inpatient (IN) | payer MEDICARE, OTHER ==
[2017-10-13] MEDS ORDERED: Sodium Chloride 0.9% 1,000 ML IV STA ×2 (15:58→17:00)
--- NOTE | 2017-10-13 16:04 | ED PDOC ---
Arrival/HPI - General Chief Complaint: Altered Mental Status Time Seen by Provider: 10/13/17 15:52 Historian: Caregiver, EMS EM Caveat: Altered Mental Status, Other (lethargic) - History of Present Illness Narrative History of Present Illness (Text): 10/13/17 15:50 A 76 year old female, whose past medical history includes hypertension, UTI, anemia, seizure disorder, CHF, GI bleed, gastroenteritis, and cholecystitis, presents to the emergency department via EMS after home health aid found the patient to be AMS and lethargic. The patient was recently discharged and diagnosed with gastroenteritis and cholecystitis. HPI & ROS limited due to patient's condition. Time/Duration: Prior to Arrival Symptom Onset: Sudden Symptom Course: Unchanged Severity Level: Mild Activities at Onset: Rest Context: Home Past Medical History - Provider Review Nursing Documentation Reviewed: Yes - Infectious Disease Hx of Infectious Diseases: None - Tetanus Immunization Tetanus Immunization: Unknown - Reproductive Menopause: Yes - Cardiac Hx Cardiac Disorders: Yes Hx Congestive Heart Failure: Yes Hx Hypertension: Yes - Pulmonary Hx Respiratory Disorders: Yes Hx Pneumonia: Yes - Neurological HX Cerebrovascular Accident: Yes - HEENT Hx HEENT Disorder: No - Renal Hx Renal Disorder: No - Endocrine/Metabolic Hx Endocrine Disorders: No - Hematological/Oncological Hx Blood Disorders: Yes Hx Anemia: Yes Hx Hepatitis C: Yes - Integumentary Hx Dermatological Disorder: No - Musculoskeletal/Rheumatological Hx Falls: Yes - Gastrointestinal Hx Gastrointestinal Disorders: Yes (aspiration precaution.Pureed diet.) - Genitourinary/Gynecological Hx Genitourinary Disorders: Yes (uti,incontinent,ARF) Hx Reproductive Disorders: No - Psychiatric Hx Psychophysiologic Disorder: No Hx Substance Use: No - Past Surgical History Past Surgical History: Non-Contributing - Surgical History Hx Appendectomy: Yes Hx Cardiac Catheterization: Yes Hx Coronary Stent: Yes Hx Orthopedic Surgery: Yes ("right hip hemiarthroplasty") - Anesthesia Hx Anesthesia: Yes Hx Anesthesia Reactions: No Hx Malignant Hyperthermia: No - Suicidal Assessment Feels Threatened In Home Enviroment: No Family/Social History - Physician Review Nursing Documentation Reviewed: Yes Family/Social History: No Known Family HX Smoking Status: Never Smoked Hx Alcohol Use: No Hx Substance Use: No Hx Substance Use Treatment: No Allergies/Home Meds Allergies/Adverse Reactions: Allergies Penicillins Adverse Reaction (Intermediate, Verified 10/04/17 17:22) RASH Home Medications: Home Meds Medication Instructions Recorded Confirmed Gabapentin [Neurontin] 300 mg PO TID 04/18/16 10/13/17 traZODone [Desyrel] 50 mg PO HS 04/18/16 10/13/17 Zolpidem [Ambien] 10 mg PO HS PRN 06/19/16 10/13/17 Warfarin [Coumadin] 4 mg PO 1800 06/11/17 10/13/17 Losartan [Cozaar] 50 mg PO BID 09/28/17 10/13/17 oxyCODONE [oxyCODONE Immediate 0 mg PO Q6 PRN 10/13/17 10/13/17 Release Tab] Review of Systems - Physician Review All systems were reviewed & negative as marked: Yes - Review of Systems Systems not reviewed;Unavailable: Altered Mental Status Physical Exam Vital Signs Reviewed: Yes Vital Signs Temp Pulse Resp BP Pulse Ox 10/13/17 19:52 96.3 F L 89 18 96/45 L 10/13/17 19:34 96 F L 89 20 90/48 L 10/13/17 18:00 96.6 F L 86 20 110/57 L 97 10/13/17 17:43 86 18 109/41 L 97 10/13/17 16:15 83 20 98/44 L 97 10/13/17 15:53 98.5 F 78 16 102/46 L 100 10/13/17 15:38 81 20 102/46 L 100 Temperature: Afebrile Blood Pressure: Hypotensive Pulse: Regular Respiratory Rate: Normal Appearance: Positive for: Non-Toxic, Comfortable, Other (pale ) Pain Distress: None Mental Status: Positive for: Alert and Oriented X 3 - Systems Exam Head: Present: Atraumatic, Normocephalic Pupils: Present: PERRL Extroacular Muscles: Present: Other (Patient opens eyes to painful stimuli ) Conjunctiva: Present: Other (pale ) Mouth: Present: Moist Mucous Membranes Neck: Present: Normal Range of Motion Respiratory/Chest: Present: Clear to Auscultation, Good Air Exchange. No: Respiratory Distress, Accessory Muscle Use Cardiovascular: Present: Regular Rate and Rhythm, Normal S1, S2. No: Murmurs Abdomen: Present: Normal Bowel Sounds. No: Tenderness, Distention, Peritoneal Signs Back: Present: Normal Inspection Upper Extremity: Present: Normal Inspection. No: Cyanosis, Edema Lower Extremity: Present: Normal Inspection. No: Edema Neurological: Present: GCS=15, CN II-XII Intact. No: Speech Normal (nonverbal ) Skin: Present: Warm, Dry, Normal Color. No: Rashes Medical Decision Making ED Course and Treatment: 10/13/17 16:04 EKG: Ordered, reviewed, and independently interpreted the EKG. Rate : 78 BPM Rhythm : NSR Interpretation : anterolateral t wave abnormality 10/13/17 16:21 Rectal Exam: Preformed by me and chaperoned by NATE Contreras. Results show hemoccult positive, no melena, no gross blood. 10/13/17 16:30 Case discussed with surgical instrument technician. 10/13/17 16:58 CT results discussed with surgical instrument technician. 10/13/17 17:10 Case discussed with dimpling machine operator. - Lab Interpretations Microbiology Results: Microbiology Results 10/13/17 15:45 Blood-Venous Blood Culture - Final NO GROWTH AFTER 5 DAYS 10/13/17 15:45 Blood-Venous Gram Stain - Final TEST NOT PERFORMED 10/13/17 15:14 Blood-Venous Blood Culture - Final NO GROWTH AFTER 5 DAYS 10/13/17 15:14 Blood-Venous Gram Stain - Final TEST NOT PERFORMED Lab Results: 10/13/17 15:14 10/13/17 15:14 Lab Results 10/13/17 16:30: Blood Type A POSITIVE, Antibody Screen Negative, Crossmatch See Detail, BBK History Checked Patient has bt 10/13/17 15:59: POC Glucose (mg/dL) 187 H 10/13/17 15:14: Sodium 134, Chloride 102, Potassium 4.7, Carbon Dioxide 23, Anion Gap 14, BUN 23 H, Creatinine 1.6 H, Est GFR ( Amer) 38, Est GFR ( Non-Af Amer) 31, Random Glucose 180 H, Calcium 7.6 L, Total Bilirubin 0.4, AST 82 H D, ALT 43, Alkaline Phosphatase 55, Troponin I 0.07 D, Total Protein 5.0 L , Albumin 2.4 L, Globulin 2.6, Albumin/Globulin Ratio 0.9 L, Lipase 37 10/13/17 15:14: pO2 170 H, VBG pH 7.49 H, VBG pCO2 31.0 L, VBG HCO3 23.6, VBG Total CO2 24.6, VBG O2 Sat (Calc) 99.7 H, VBG Base Excess 1.0, VBG Potassium 4.8 , Sodium 134.0, Chloride 104.0, Glucose 191 H, Lactate 4.6 H*, FiO2 21.0, Venous Blood Potassium 4.8 10/13/17 15:14: PT 37.2 H, INR 3.33 H, APTT 42.2 H 10/13/17 15:14: WBC 14.1 H D, RBC 1.76 L, Hgb 5.2 L* D, Hct 16.2 L*, MCV 92.0, MCH 29.5, MCHC 32.1, RDW 19.0 H, Plt Count 194, MPV 9.6, Gran % 63.6, Lymph % ( Auto) 23.3, Armstrong % (Auto) 12.9 H, Eos % (Auto) 0.1 L, Baso % (Auto) 0.1, Gran # 9.00 H, Lymph # 3.3, Armstrong # 1.8 H, Eos # 0.0, Baso # 0.02 - RAD Interpretation Radiology Orders: 10/13/17 15:53 ABD & PELVIS IV CONTRAST ONLY [CT] Stat CHEST PORTABLE [RAD] Stat - Medication Orders Current Medication Orders: Alprazolam (Xanax) 0.25 mg PO TID JEAN CLAUDE PRN Reason: Protocol Stop: 10/26/17 10:01 Last Admin: 10/21/17 11:13 Dose: Not Given Non-Admin Reason: Patient Asleep Clonidine HCl (Catapres-Tts3 0.3 Mg/24 Hr) 1 patch TD Q7D@1000 JEAN CLAUDE Last Admin: 10/16/17 18:09 Dose: 1 patch MAR Pulse and Blood Pressure Document 10/16/17 18:09 AE (Rec: 10/16/17 18:09 AE [id number]) Pulse Pulse Rate (60-90) 113 Blood Pressure Blood Pressure (100/60-150/90) 156/81 MAR Transdermal Patch Site Document 10/16/17 18:09 AE (Rec: 10/16/17 18:09 AE [id number]) Transdermal Patch Site Transdermal Patch Site Right Outer Upper Arm Hydralazine HCl (Apresoline) 10 mg PO QID PRN PRN Reason: for sbp>160 Last Admin: 10/19/17 06:18 Dose: 10 mg MAR Pulse and Blood Pressure Document 10/19/17 06:18 PCU (Rec: 10/19/17 06:18 PCU [id number]) Pulse Pulse Rate (60-90) 91 Blood Pressure Blood Pressure (100/60-150/90) 179/90 Hydralazine HCl (Apresoline) 50 mg PO TID [facility] Last Admin: 10/21/17 06:38 Dose: 50 mg MAR Pulse and Blood Pressure Document 10/21/17 06:38 PCO (Rec: 10/21/17 06:40 PCO [id number]) Pulse Pulse Rate (60-90) 77 Blood Pressure Blood Pressure (100/60-150/90) 162/76 Dextrose (Dextrose 5% In Water 1000 Ml) 1,000 mls @ 40 mls/hr IV .Q24H [facility] Last Admin: 10/20/17 17:28 Dose: 40 mls/hr eMAR Start Stop Document 10/20/17 17:28 [facility] (Rec: 10/20/17 17:28 [id number]) Intravenous Solution Start Date 10/20/17 Start Time 17:28 Levalbuterol HCl (Xopenex) 0.63 mg IH TIDRESP [facility] Last Admin: 10/21/17 07:47 Dose: 0.63 mg Levetiracetam (Keppra) 500 mg PO BID [facility] Last Admin: 10/21/17 11:11 Dose: 500 mg Losartan Potassium (Cozaar) 100 mg PO DAILY [facility] Metoprolol Tartrate (Lopressor) 50 mg PO BRKDIN [facility] Last Admin: 10/21/17 11:11 Dose: 50 mg MAR Pulse and Blood Pressure Document 10/21/17 11:11 SES (Rec: 10/21/17 11:12 [id number]) Pulse Pulse Rate (60-90) 76 Blood Pressure Blood Pressure (100/60-150/90) 145/69 Mupirocin (Bactroban Ointment) 0 gm TOP BID [facility] Last Admin: 10/20/17 17:19 Dose: 1 applic Nystatin (Nystop Topical Powder) 0 gm TOP Q12 [facility] Last Admin: 10/20/17 22:30 Dose: 1 applic Oxycodone HCl (Oxycodone Immediate Release Tab) 10 mg PO Q6H PRN PRN Reason: Pain, moderate (4-7) Last Admin: 10/21/17 01:35 Dose: 10 mg [facility] Pain Assessment Document 10/21/17 01:35 PCO (Rec: 10/21/17 01:35 PCO [id number]) Pain Reassessment Is this a pain reassessment? No Sleep Is patient sleeping during reassessment? No Presence of Pain Presence of Pain Yes Pain Scale Used Pain Scale Used Greco-Rodriguez Location Pain Location Body Site Back Description Pain Behavior Facial Grimacing Aggravating Factors Changing Position Alleviating Factors/Management Medication Techniques Re-Assess: [facility] Pain Assessment Document 10/21/17 02:35 PCO (Rec: 10/21/17 04:46 PCO [id number]) Pain Reassessment Is this a pain reassessment? Yes Sleep Is patient sleeping during reassessment? No Presence of Pain Presence of Pain No Pantoprazole Sodium (Protonix Ec Tab) 40 mg PO DAILY [facility] Last Admin: 10/21/17 11:12 Dose: 40 mg Potassium Phos/Sodium Phos (Neutra-Phos) 1 pkt PO DAILY [facility] Last Admin: 10/21/17 11:12 Dose: 1 pkt Zolpidem Tartrate (Ambien) 5 mg PO HS PRN; Protocol PRN Reason: Insomnia Discontinued Medications Acetaminophen (Tylenol 325mg Tab) 650 mg PO ONCE ONE Stop: 10/21/17 12:01 Amlodipine Besylate (Norvasc) 5 mg PO DAILY [facility] Last Admin: 10/16/17 09:22 Dose: Amlodipine Besylate (Norvasc) 10 mg PO DAILY [facility] Last Admin: 10/20/17 10:53 Dose: 10 mg [facility] Blood Pressure Document 10/20/17 10:53 [facility] (Rec: 10/20/17 10:53 [id number]) Blood Pressure Blood Pressure (100/60-150/90) 140/68 Aspirin (Ecotrin) 81 mg PO DAILY [facility] Last Admin: 10/20/17 10:51 Dose: 81 mg Diphenhydramine HCl (Benadryl) 25 mg PO ONCE ONE Stop: 10/21/17 12:01 Famotidine (Pepcid) 20 mg IVP BID [facility] Last Admin: 10/17/17 09:11 Dose: 20 mg IVP Administration Document 10/17/17 09:11 [id number] (Rec: 10/17/17 09:11 [id number] [id number]) Charges for Administration # of IVP Administrations 1 Hydralazine HCl (Apresoline) 10 mg IVP ONCE ONE Stop: 10/16/17 08:25 Last Admin: 10/16/17 08:30 Dose: 10 mg IVP Administration Document 10/16/17 08:30 AE (Rec: 10/16/17 08:31 AE [id number]) Charges for Administration # of IVP Administrations 1 MAR Pulse and Blood Pressure Document 10/16/17 08:30 AE (Rec: 10/16/17 08:31 AE [id number]) Pulse Pulse Rate (60-90) 109 Blood Pressure Blood Pressure (100/60-150/90) 193/112 Hydralazine HCl (Apresoline) 50 mg PO BID JEAN CLAUDE Last Admin: 10/18/17 11:00 Dose: Hydrocortisone Sodium Succinate (Solu-Cortef) 100 mg IVP ONCE ONE Stop: 10/21/17 12:01 Sodium Chloride (Sodium Chloride 0.9%) 1,000 mls @ 999 mls/hr IV .Q1H1M STA Stop: 10/13/17 16:58 Last Admin: 10/13/17 16:49 Dose: 999 mls/hr eMAR Start Stop Document 10/13/17 16:49 SRE (Rec: 10/13/17 16:50 SRE [id number]) Intravenous Solution Start Date 10/13/17 Start Time 16:00 End Date 10/13/17 End time 17:00 Total Infusion Time 60 Cefepime HCl (Maxipime 1gm) 1 gm in 100 mls @ 100 mls/hr IVPB STAT STA PRN Reason: Protocol Stop: 10/13/17 17:30 Last Admin: 10/13/17 17:11 Dose: 100 mls/hr eMAR Start Stop Document 10/13/17 17:11 [email or web address] (Rec: 10/13/17 17:11 [email or web address] [id number]) Intravenous Solution Start Date 10/13/17 Start Time 17:11 End Date 10/13/17 Phytonadione 10 mg/ Sodium (Chloride) 51 mls @ 100 mls/hr IV ONCE ONE Stop: 10/13/17 17:29 Last Admin: 10/13/17 17:59 Dose: 100 mls/hr eMAR Start Stop Document 10/13/17 17:59 SRE (Rec: 10/13/17 18:00 SRE [id number]) Intravenous Solution Start Date 10/13/17 Start Time 17:30 End Date 10/13/17 End time 18:00 Total Infusion Time 30 Sodium Chloride (Sodium Chloride 0.9%) 1,000 mls @ 999 mls/hr IV .Q1H1M STA Stop: 10/13/17 18:00 Last Admin: 10/13/17 18:05 Dose: 999 mls/hr eMAR Start Stop Document 10/13/17 18:05 SRE (Rec: 10/13/17 18:05 SRE [id number]) Intravenous Solution Start Date 10/13/17 Start Time 18:05 End Date 10/13/17 End time 19:00 Total Infusion Time 55 Vancomycin HCl (Vancomycin 1gm) 1 gm in 250 mls @ 167 mls/hr IVPB STAT STA Stop: 10/13/17 19:57 Last Admin: 10/13/17 21:53 Dose: 167 mls/hr eMAR Start Stop Document 10/13/17 21:53 KGD (Rec: 10/13/17 21:53 KGD [id number]) Intravenous Solution Start Date 10/13/17 Start Time 21:53 Azithromycin (Zithromax 500mg In Ns) 500 mg in 250 mls @ 167 mls/hr IVPB 2000 JEAN CLAUDE PRN Reason: Protocol Last Admin: 10/13/17 21:51 Dose: 167 mls/hr Comments: eMAR Start Stop Document 10/13/17 21:51 KGD (Rec: 10/13/17 21:52 KGD [id number]) Intravenous Solution Start Date 10/13/17 Start Time 21:52 Phytonadione 10 mg/ Sodium (Chloride) 51 mls @ 100 mls/hr IV ONCE ONE Stop: 10/14/17 02:30 Meropenem 1 gm/ Sodium (Chloride) 100 mls @ 100 mls/hr IVPB Q12 JEAN CLAUDE PRN Reason: Protocol Last Admin: 10/15/17 09:05 Dose: 100 mls/hr eMAR Start Stop Document 10/15/17 09:05 MMA (Rec: 10/15/17 09:05 MMA [id number]) Intravenous Solution Start Date 10/15/17 Start Time 09:05 End Date 10/15/17 End time 09:45 Total Infusion Time 40 Metronidazole (Flagyl) 500 mg in 100 mls @ 100 mls/hr IVPB STAT STA PRN Reason: Protocol Stop: 10/14/17 00:03 Last Admin: 10/13/17 23:21 Dose: Sodium Chloride (Sodium Chloride 0.9%) 1,000 mls @ 100 mls/hr IV .Q10H JEAN CLAUDE Last Admin: 10/14/17 22:18 Dose: 100 mls/hr eMAR Start Stop Document 10/14/17 22:18 MHA (Rec: 10/14/17 22:19 [id number]) Intravenous Solution Start Date 10/14/17 Start Time 22:19 Azithromycin (Zithromax 500mg In Ns) 500 mg in 250 mls @ 167 mls/hr IVPB 2200 JEAN CLAUDE PRN Reason: Protocol Last Admin: 10/15/17 23:21 Dose: 167 mls/hr eMAR Start Stop Document 10/15/17 23:21 MHA (Rec: 10/15/17 23:22 [id number]) Intravenous Solution Start Date 10/15/17 Start Time 23:21 End Date 10/16/17 End time 00:51 Total Infusion Time 90 Meropenem 1 gm/ Sodium (Chloride) 50 mls @ 100 mls/hr IVPB Q12 JEAN CLAUDE PRN Reason: Protocol Last Admin: 10/17/17 21:26 Dose: 100 mls/hr eMAR Start Stop Document 10/17/17 21:26 MS (Rec: 10/17/17 21:26 MS [id number]) Intravenous Solution Start Date 10/17/17 Start Time 21:26 End Date 10/17/17 End time 21:56 Total Infusion Time 30 Sodium Chloride (Sodium Chloride 0.9%) 1,000 mls @ 50 mls/hr IV .Q20H [facility] Last Admin: 10/15/17 19:43 Dose: 50 mls/hr eMAR Start Stop Document 10/15/17 19:43 MMA (Rec: 10/15/17 19:43 MMA [id number]) Intravenous Solution Start Date 10/15/17 Start Time 19:43 End Date 10/15/17 Dextrose/Sodium Chloride (Dextrose 5%/0.45% Ns 1000 Ml) 1,000 mls @ 40 mls/hr IV .Q24H [facility] Last Admin: 10/18/17 18:12 Dose: Meropenem (Merrem Iv 1 Gm Premix) 50 mls @ 100 mls/hr IVPB Q12 [facility] Last Admin: 10/20/17 10:53 Dose: 100 mls/hr eMAR Start Stop Document 10/20/17 10:53 DMC (Rec: 10/20/17 10:53 [id number]) Intravenous Solution Start Date 10/20/17 Start Time 10:53 End Date 10/20/17 End time 11:53 Total Infusion Time 60 Potassium Chloride 20 meq/ (Dextrose/Sodium Chloride) 1,010 mls @ 40 mls/hr IV .Q24H [facility] Last Admin: 10/19/17 16:28 Dose: 40 mls/hr eMAR Start Stop Document 10/19/17 16:28 BENNETT (Rec: 10/19/17 16:28 [facility] [id number]) Intravenous Solution Start Date 10/19/17 Start Time 16:28 End Date 10/19/17 Losartan Potassium (Cozaar) 100 mg PO DAILY [facility] Last Admin: 10/20/17 10:52 Dose: 100 mg Metoprolol Tartrate (Lopressor) 25 mg PO BID [facility] Last Admin: 10/16/17 18:07 Dose: 25 mg MAR Pulse and Blood Pressure Document 10/16/17 18:07 AE (Rec: 10/16/17 18:07 AE [id number]) Pulse Pulse Rate (60-90) 113 Blood Pressure Blood Pressure (100/60-150/90) 156/81 Metoprolol Tartrate (Lopressor) 25 mg PO STAT [facility] Stop: 10/15/17 18:09 Last Admin: 10/15/17 18:53 Dose: 25 mg MAR Pulse and Blood Pressure Document 10/15/17 18:53 MMA (Rec: 10/15/17 18:54 MMA [id number]) Pulse Pulse Rate (60-90) 100 Blood Pressure Blood Pressure (100/60-150/90) 163/86 Metoprolol Tartrate (Lopressor) 5 mg IVP ONCE ONE Stop: 10/18/17 01:47 Last Admin: 10/18/17 02:00 Dose: 5 mg IVP Administration Document 10/18/17 02:00 MS (Rec: 10/18/17 02:00 [id number]) Charges for Administration # of IVP Administrations 1 [facility] Pulse and Blood Pressure Document 10/18/17 02:00 MS (Rec: 10/18/17 02:00 MS [id number]) Pulse Pulse Rate (60-90) 94 Blood Pressure Blood Pressure (100/60-150/90) 178/97 Oxycodone HCl (Oxycodone Immediate Release Tab) 5 mg PO Q6H PRN PRN Reason: Pain, moderate (4-7) Last Admin: 10/17/17 03:29 Dose: 5 mg [facility] Pain Assessment Document 10/17/17 03:29 KGD (Rec: 10/17/17 03:30 KGD [id number]) Pain Reassessment Is this a pain reassessment? No Presence of Pain Presence of Pain Yes Pain Scale Used Pain Scale Used FLACC Location Pain Location Body Site Generalized Description Description Constant Re-Assess: [facility] Pain Assessment Document 10/17/17 04:29 KGD (Rec: 10/17/17 04:50 KGD [id number]) Pain Reassessment Is this a pain reassessment? Yes Pantoprazole Sodium (Protonix Inj) 40 mg IVP DAILY [facility] Last Admin: 10/18/17 10:58 Dose: 40 mg IVP Administration Document 10/18/17 10:58 KARINA (Rec: 10/18/17 10:59 KARINA [id number]) Charges for Administration # of IVP Administrations 1 Pneumococcal Polyvalent Vaccine (Pneumovax 23 Vaccine) 0.5 ml IM .ONCE ONE Stop: 10/13/17 23:28 Potassium Chloride (K-Dur 20 Meq Er Tab) 40 meq PO ONCE ONE Stop: 10/17/17 08:54 Last Admin: 10/17/17 09:23 Dose: 40 meq Potassium Phos/Sodium Phos (Neutra-Phos) 1 pkt PO BID [facility] Last Admin: 10/20/17 10:56 Dose: 1 pkt - Scribe Statement The provider has reviewed the documentation as recorded by the Evonne Ornelas Provider Scribe Attestation: All medical record entries made by the Scribe were at my direction and personally dictated by me. I have reviewed the chart and agree that the record accurately reflects my personal performance of the history, physical exam, medical decision making, and the department course for this patient. I have also personally directed, reviewed, and agree with the discharge instructions and disposition. Disposition/Present on Arrival - Present on Arrival Any Indicators Present on Arrival: Yes History of DVT/PE: No History of Uncontrolled Diabetes: No Urinary Catheter: Yes History of Decub. Ulcer: No History Surgical Site Infection Following: None - Disposition Have Diagnosis and Disposition been Completed?: Yes Diagnosis: Anemia, Bleeding on Coumadin, Rectus sheath hematoma Disposition: HOSPITALIZED Disposition Time: 17:12 Condition: SERIOUS
[2017-10-13 16:25] LABS: BASO # 0.02 K/mm3 (0.0-2.0); BASO % 0.1 % (0.0-3.0); EOS % 0.1 % (1.5-5.0); GRAN % 63.6 % (50.0-68.0); LYMPH # 3.3 (1.2-3.4); LYMPH % 23.3 % (22.0-35.0); MEAN CORPUSCULAR HEMOGLOBIN 29.5 pg (25.0-35.0); MEAN CORPUSCULAR HGB CONC 32.1 g/dl (31.0-37.0); MEAN PLATELET VOLUME 9.6 fl (7.0-11.0); MONO # 1.8 (0.1-0.6); MONO % 12.9 % (1.0-6.0); RBC 1.76 10^6/uL (3.5-6.1); WHITE BLOOD COUNT 14.1 10^3/ul (4.5-11.0)
[2017-10-13 16:28] LABS: VENOUS BLOOD GAS PO2 170 mm/Hg (30-55); VENOUS BLOOD PH 7.49 (7.32-7.43)
[2017-10-13] MEDS ORDERED: Cefepime 1gm in NS 100ml 1 GM/100 ML BAG IVPB STA (16:31)
[2017-10-13] MEDS ORDERED: metroNIDAZOLE IV 500 mg/100 ml 500 MG/100 ML BAG IVPB STA ×2 (16:31→23:04)
[2017-10-13] MEDS ORDERED: Iohexol 350 MG/100 ML VIAL ONE (16:32)
[2017-10-13 16:50] LABS: ALB/GLOB RATIO 0.9 (1.1-1.8); ALBUMIN 2.4 g/dL (3.0-4.8); CALCIUM 7.6 mg/dL (8.4-10.5)
[2017-10-13 16:51] LABS: TROPONIN I 0.07 ng/mL
[2017-10-13 16:53] LABS: HEMOGLOBIN 5.2 g/dL (12.0-16.0)
[2017-10-13] MEDS ORDERED: Phytonadione 10 MG in Sodium Chloride 0.9% 50 ML IV ONE (16:59)
[2017-10-13 17:05] LABS: INR 3.33 (0.93-1.08); PARTIAL THROMBOPLASTIN TIME 42.2 Seconds (25.1-36.5); PROTHROMBIN TIME 37.2 SECONDS (9.4-12.5)
--- NOTE | 2017-10-13 17:24 | CT ---
PROCEDURE: CT scan abdomen and pelvis dated 10/13/2017. HISTORY: Abdominal pain. Hypotensive. COMPARISON: Comparison made with CT scan of the abdomen pelvis 09/29/2017. TECHNIQUE: Contiguous axial images of the abdomen and pelvis performed following intravenous injection of approximately 98 cc Omnipaque 350 contrast material. Coronal and Sagittal reformats generated. Radiation dose: Total exam DLP = 499.69 mGy-cm. This CT exam was performed using one or more of the following dose reduction techniques: Automated exposure control, adjustment of the mA and/or kV according to patient size, and/or use of iterative reconstruction technique. FINDINGS: LOWER THORAX: Bilateral partially calcified breast implants again noted. . Status post endovascular stent repair of aneurysm distal descending thoracic aorta though there does appear to be some contrast material at extrinsic to the terminal end of the stent grafts. The possibility of some contrast extravasation or leakage about this the terminal end of the repair of must be considered. Adjacent atelectasis and or scarring changes are present with questionable small loculated effusion. Minor right basilar atelectasis with questionable trace right-sided effusion. There is a small hiatal hernia. . Apparent left ventricular hypertrophy. . LIVER: There is a small amount of perihepatic ascites. Liver measures approximately 15.5 cm in CC dimension. Minimal diffuse fatty hepatic infiltration. GALLBLADDER AND BILE DUCTS: Gallbladder is physiologically distended. Mild gallbladder wall thickening nonspecific. PANCREAS: Pancreas is atrophic and fatty replaced. No pancreatic masses or collections seen. SPLEEN: Scattered Spleen exhibits normal size. Spleen exhibits some areas of low attenuation which could be in part related to streak and beam hardening artifact. The possibility of a small infarct along the posterior margin of the spleen not excluded. ADRENALS: No adrenal lesions. KIDNEYS AND URETERS: Kidneys demonstrate symmetric nephrograms. Several small low-attenuation foci both kidneys again seen statistically likely representing renal cyst. Ultrasound correlation could be performed if necessary. BLADDER: Urinary bladder appears collapsed likely due to in situ unclamped Bush catheter. Small amount of intraluminal air likely due to instrumentation. REPRODUCTIVE: Which could represent uterus may be compressed of. APPENDIX: Appendix not seen with complete certainty on this exam. BOWEL: Evaluation of the bowel is limited due to the lack of oral contrast material. The stomach is distended with liquid and air. Visualized loops of small bowel appear grossly unremarkable despite compression by the aforementioned large hematoma. Stool and air seen throughout the large bowel. . PERITONEUM: There is a large elliptical shaped heterogeneous presumed hematoma of that appears to arise from the left rectus sheath. This collection exhibits heterogeneous Hounsfield units though the larger portion in the mid 20s suggesting proteinaceous content with areas in the upper 50s suggesting more acute blood. This collection measures approximately 25.5 cm cc x 13.2 cm trans x 8 cm AP. The collection extends from just below the costal margin in left mid abdomen to the inferior pelvis. The collection is somewhat teardrop in appearance with the largest component in the pelvis region. This most likely represents a hematoma arising from the left rectus sheath and extending inferiorly. This large collection exhibits what appears to be septations and loculations. The collection exerts considerable mass effect with compression of the omentum and posterolateral displacement of the adjacent bowel. Note that these findings were discussed with the Dr. Bobo at approximately 4:52 p.m. with written down and read back verification. Clinical correlation recommended. . LYMPH NODES: Unremarkable. No enlarged lymph nodes. VASCULATURE: Dense atherosclerotic plaque changes seen along the abdominal aorta and iliac arteries most significant involves the latter. See above discussion for additional details. BONES: No fracture left total hip replacement on again noted. Mild multilevel degenerative spondylosis of the lower thoracic and lumbar spine. OTHER FINDINGS: None. IMPRESSION: There is a large presumed hematoma within the left inferiorly into the left pelvis. This presumed hematoma appears to arise from the left rectus sheath of an exerts considerable surrounding mass effect. Small amount of perihepatic ascites. Low-attenuation foci along the posterior margin of the spleen possibly representing a splenic infarcts. Clinical correlation recommended. Mild fatty hepatic infiltration. Small amount of perihepatic ascites. 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 There is some apparent opacification outside the confines of the stent along the inferior margin of the repair which could represent some contrast extravasation although still within the lumen of the aneurysm. The possibility of a small amount of chronic leakage in this location to be excluded. This was seen on prior study Associated atelectasis with questionable small loculated fluid collection. . The trace right-sided effusion and mild right basilar atelectasis. Probable LVH. Mild gallbladder wall thickening; rule out mild inflammation. Partially calcified bilateral breast implants again noted. Bilateral low-attenuation foci both kidneys likely represent cysts. Emergency physician aware these findings as detailed above.
--- NOTE | 2017-10-13 17:54 | CP.PCM.CON ---
History of Present Illness - History of Present Illness History of Present Illness: General Surgery Consult Note- Dr. 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 after being discharged from TCU for AMS and worsening abd pain. Patient is non-verbal at this time. responds to noxious stimuli. Daughter is at bedside answering questions. Daughter state that patient suffered physical trauma >1 week ago. Upon arrival hypotensive. Denies fevers, BRBPR, hematemsis, hematochezia, chills, chest pain, shortness of breath , nausea, vomiting, diarrhea. PMH: CVA, afib, seizure, AAA s/p stent, HepC, CHF, chronic anemia, UTI, COPD, chronic constipation, divertiulosis, left breast mass PSH: Endovascular graft for aortic aneurysm, cardiac cath, appendectomy, c- scope (2013), redundant colon, hemorrhoids, EGD (2016), L CORINA. ALL: PCN SocialHx: former smoker, no ETOH or recreational drug use Review of Systems - Review of Systems All systems: reviewed and no additional remarkable complaints except - Constitutional Constitutional: As Per HPI Past Patient History - Infectious Disease Hx of Infectious Diseases: None - Tetanus Immunizations Tetanus Immunization: Unknown - Past Social History Smoking Status: Never Smoked - CARDIAC Hx Cardiac Disorders: Yes Hx Congestive Heart Failure: Yes Hx Hypertension: Yes - PULMONARY Hx Respiratory Disorders: Yes Hx Pneumonia: Yes - NEUROLOGICAL HX Cerebrovascular Accident: Yes - HEENT Hx HEENT Problems: No - RENAL Hx Chronic Kidney Disease: No - ENDOCRINE/METABOLIC Hx Endocrine Disorders: No - HEMATOLOGICAL/ONCOLOGICAL Hx Blood Disorders: Yes Hx Anemia: Yes Hx Hepatitis C: Yes - INTEGUMENTARY Hx Dermatological Problems: No - MUSCULOSKELETAL/RHEUMATOLOGICAL Hx Falls: Yes - GASTROINTESTINAL Hx Gastrointestinal Disorders: Yes (aspiration precaution.Pureed diet.) - GENITOURINARY/GYNECOLOGICAL Hx Genitourinary Disorders: Yes (uti,incontinent,ARF) Hx Reproductive Disorders: No - PSYCHIATRIC Hx Psychophysiologic Disorder: No Hx Substance Use: No - SURGICAL HISTORY Hx Appendectomy: Yes Hx Cardiac Catheterization: Yes Hx Coronary Stent: Yes Hx Orthopedic Surgery: Yes ("right hip hemiarthroplasty") - ANESTHESIA Hx Anesthesia: Yes Hx Anesthesia Reactions: No Hx Malignant Hyperthermia: No Meds Allergies/Adverse Reactions: Allergies Allergy/AdvReac Type Severity Reaction Status Date / Time Penicillins AdvReac Intermediate RASH Verified 10/04/17 17:22 - Medications Medications: Current Medications Sodium Chloride (Sodium Chloride 0.9%) 1,000 mls @ 999 mls/hr IV .Q1H1M STA Stop: 10/13/17 18:00 Physical Exam - Constitutional Appears: No Acute Distress, Chronically Ill - Head Exam Additional comments: head rotated right side bent right - Eye Exam Pupil Exam: PERRL - ENT Exam ENT Exam: Mucous Membranes Moist - Respiratory Exam Respiratory Exam: NORMAL BREATHING PATTERN. absent: Accessory Muscle Use, Respiratory Distress - Cardiovascular Exam Cardiovascular Exam: +S1, +S2. absent: Bradycardia, Tachycardia - GI/Abdominal Exam GI & Abdominal Exam: Firm, Guarding, Tenderness. absent: Distended, Soft Additional comments: involuntary guarding rigid abdomen on palpation left side palpable mass - Exam Additional comments: sy in place, clear yellow urine - Extremities Exam Extremities exam: Negative for: calf tenderness - Neurological Exam Neurological exam: Altered Additional comments: Aphasic - Skin Skin Exam: Dry, Warm Results - Vital Signs Recent Vital Signs: Last Vital Signs Temp 98.5 F 10/13/17 15:53 Pulse 86 10/13/17 17:43 Resp 18 10/13/17 17:43 BP 109/41 L 10/13/17 17:43 Pulse Ox 97 10/13/17 17:43 - Labs Result Diagrams: 10/13/17 15:14 10/13/17 15:14 Assessment & Plan - Assessment and Plan (Free Text) Assessment: 76F AMS w/ rectus sheath hematoma Plan: - Transfuse 2uPRBC & 2uFFP - VitK - Abx - strict I&O - IVF - pain control PRN - GI ppx - serial abd exams - further recs per Dr. Christian Fournier PGY1
--- NOTE | 2017-10-13 18:04 | RAD ---
HISTORY: ams COMPARISON: Comparison chest dated 09/28/2017. FINDINGS: LUNGS: Vague opacity seen in the left retrocardiac region which could represent atelectasis and or infiltrate. Questionable small left-sided effusion. Minimal right basilar atelectasis. PLEURA: No significant pleural effusion identified, no pneumothorax apparent. CARDIOVASCULAR: Endovascular stent graft repair of descending thoracic aortic aneurysm. . OSSEOUS STRUCTURES: No significant abnormalities. VISUALIZED UPPER ABDOMEN: Normal. OTHER FINDINGS: Partially calcified bilateral breast implants IMPRESSION: Vague opacity seen in the left retrocardiac region which could represent atelectasis and or infiltrate. Questionable small left-sided effusion. Minimal right basilar atelectasis. Endovascular stent graft repair descending thoracic aortic aneurysm
--- NOTE | 2017-10-13 18:12 | CP.PCM.CON ---
History of Present Illness - History of Present Illness History of Present Illness: CRITICAL CARE CONSULT NOTE HPI: Patient is 76yo female with PMHx of DVT on Coumadin, hypertension, UTI, anemia, seizure disorder, CHF, GI bleed, gastroenteritis, and cholecystitis, presents with AMS from home. As per the daughter, who provided all of the history, patient has been lethargic, less interactive, since coming home yesterday from rehab. Daughter denies fever, chills, cough, chest pain, sob, palpitations, melena, hematemesis. Endorses abdominal pain for 1 week. Initial labs showed HH 5.2, and CT A/P that demonstrated Large Left rectus sheath hematoma, surgery consulted. Patient with poor IV access. Pt ordered for 2u FFP , 4u PRBC, and Vit K, Broad spectrum antibiotics. PMhx as above PSHx as above Allergies PCN Meds as per EMR FHx NC ROS as above Review of Systems - Review of Systems Review of Systems: As per HPI Past Patient History - Infectious Disease Hx of Infectious Diseases: None - Tetanus Immunizations Tetanus Immunization: Unknown - Past Social History Smoking Status: Never Smoked - CARDIAC Hx Cardiac Disorders: Yes Hx Congestive Heart Failure: Yes Hx Hypertension: Yes - PULMONARY Hx Respiratory Disorders: Yes Hx Pneumonia: Yes - NEUROLOGICAL HX Cerebrovascular Accident: Yes - HEENT Hx HEENT Problems: No - RENAL Hx Chronic Kidney Disease: No - ENDOCRINE/METABOLIC Hx Endocrine Disorders: No - HEMATOLOGICAL/ONCOLOGICAL Hx Blood Disorders: Yes Hx Anemia: Yes Hx Hepatitis C: Yes - INTEGUMENTARY Hx Dermatological Problems: No - MUSCULOSKELETAL/RHEUMATOLOGICAL Hx Falls: Yes - GASTROINTESTINAL Hx Gastrointestinal Disorders: Yes (aspiration precaution.Pureed diet.) - GENITOURINARY/GYNECOLOGICAL Hx Genitourinary Disorders: Yes (uti,incontinent,ARF) Hx Reproductive Disorders: No - PSYCHIATRIC Hx Psychophysiologic Disorder: No Hx Substance Use: No - SURGICAL HISTORY Hx Appendectomy: Yes Hx Cardiac Catheterization: Yes Hx Coronary Stent: Yes Hx Orthopedic Surgery: Yes ("right hip hemiarthroplasty") - ANESTHESIA Hx Anesthesia: Yes Hx Anesthesia Reactions: No Hx Malignant Hyperthermia: No Meds Allergies/Adverse Reactions: Allergies Allergy/AdvReac Type Severity Reaction Status Date / Time Penicillins AdvReac Intermediate RASH Verified 10/04/17 17:22 - Medications Medications: Current Medications Sodium Chloride (Sodium Chloride 0.9%) 1,000 mls @ 999 mls/hr IV .Q1H1M STA Stop: 10/13/17 18:00 Physical Exam - Constitutional Appears: No Acute Distress - Head Exam Head Exam: ATRAUMATIC - Eye Exam Eye Exam: PERRL Additional comments: pale conjuctiva - ENT Exam ENT Exam: Mucous Membranes Dry - Neck Exam Additional comments: leaning to the right, no rigidity - Respiratory Exam Respiratory Exam: Clear to Auscultation Bilateral, NORMAL BREATHING PATTERN - Cardiovascular Exam Cardiovascular Exam: REGULAR RHYTHM, +S1, +S2 - GI/Abdominal Exam GI & Abdominal Exam: Firm, Guarding, Normal Bowel Sounds - Extremities Exam Extremities exam: Positive for: normal inspection - Neurological Exam Neurological exam: Altered - Skin Skin Exam: Pallor, Warm Results - Vital Signs Recent Vital Signs: Last Vital Signs Temp 98.5 F 10/13/17 15:53 Pulse 86 10/13/17 17:43 Resp 18 10/13/17 17:43 BP 109/41 L 10/13/17 17:43 Pulse Ox 97 10/13/17 17:43 - Labs Result Diagrams: 10/13/17 15:14 10/13/17 15:14 Assessment & Plan - Assessment and Plan (Free Text) Assessment: 76yo female presents hemorrhagic shock, Sepsis, anemia, rectus sheath hematoma hemorrhagic Shock Severe Sepsis Dehydration Anemia Rectus Sheath Hematoma Coagulopathy - currently afebrile, HD stable, BP 102/40, HR 80s, patient is lethargic opens eyes to verbal and painful stimuli - on exam noted to have firm rigid abdomen with BS+, guarding - INR 3.3, HH 5.2, set to receive FFP and PRBC - patient on Coumadin, NOT on ASA Recommend: - supp o2 as needed - broad spectrum abx, Aztreonam, Vanco, Azithro - panculture, check procal, UCx, BCx, UA - hold ALL BP meds - Bolus 2L NS bolus, repeat lactate - would give 3u PRBC, 2U FFP, 1u platelets - Poor IV Access, would place central line - follow up surgery - hold Coumadin, HSQ - Obtain CT head without contrast - GI ppx, PPI - DVT ppx, SCDs - Obtain LE dopplers - Monitor in MICU critical care time 40 minutes
[2017-10-13] MEDS ORDERED: Vancomycin 1gm in NS 250ml 1 GM/250 ML BAG IVPB STA (18:28)
[2017-10-13] MEDS ORDERED: Lactated Ringer's 1,000 ML IV SCH (19:30)
[2017-10-13 19:38] LABS: PH,URINE 7.5 (4.7-8.0); URINE BILIRUBIN NEGATIVE (NEGATIVE); URINE BLOOD SMALL (NEGATIVE); URINE GLUCOSE (UA) NEGATIVE (NEGATIVE); URINE LEUKOCYTE ESTERASE SMALL Leu/uL (NEGATIVE); URINE NITRATE NEGATIVE (NEGATIVE); URINE PROTEIN 100 mg/dL (<30 mg/dL); URINE UROBILINOGEN 0.2 E.U./dL (<1 E.U./dL)
[2017-10-13 19:40] LABS: URINE APPEARANCE CLEAR (CLEAR); URINE COLOR YELLOW (YELLOW)
[2017-10-13] MEDS ORDERED: Azithromycin 500MG/NS 250ml 500 MG/250 ML BAG IVPB SCH (20:00)
[2017-10-13 20:07] LABS: URINE EPITHELIAL CELLS 0 - 2 /hpf (0-5); URINE RBC 0 - 2 /hpf (0-2)
--- NOTE | 2017-10-13 21:29 | CT ---
EXAM: CT Head Without Intravenous Contrast EXAM DATE/TIME: 10/13/2017 6:17 PM CLINICAL HISTORY: The patient age is 76 years old and is female; Signs and symptoms; Altered mental status/memory loss; Additional info: [facility] Facility exam id and description: Ct heads head w/o contrast TECHNIQUE: Axial computed tomography images of the head/brain without intravenous contrast. All CT scans at this facility use one or more dose reduction techniques, viz.: automated exposure control; ma/kV adjustment per patient size (including targeted exams where dose is matched to indication; i.e. head); or iterative reconstruction technique. COMPARISON: CT - HEAD W/O CONTRAST 2016-08-12 13:56 FINDINGS: Brain: There is a stable large area of hypodense encephalomalacia involving the right cerebral hemisphere, consistent with an old right MCA infarct. There is moderate cerebral white matter hypodensity, likely representing small vessel ischemic disease in a patient this age. The acuity of the white matter disease is indeterminate. The white-wolfe differentiation is otherwise preserved demonstrating no acute territorial type infarct. There is stable prominence of the ventricles and sulci, compatible with atrophy. No acute intracranial hemorrhage is seen. Midline shift: There is no midline shift. Ventricles: See above. Bones/joints: The calvarium demonstrates no evidence for a depressed fracture. Soft tissues: No acute abnormality. Vasculature: There is atherosclerotic calcification of the cavernous internal carotid arteries and distal vertebral arteries. Sinuses: Unremarkable as visualized. No acute sinusitis. Mastoid air cells: No mastoid effusion. IMPRESSION: 1. There is a stable large area of hypodense encephalomalacia involving the right cerebral hemisphere, consistent with an old right MCA infarct. 2. No acute intracranial hemorrhage or acute territorial type infarct. 3. There is moderate cerebral white matter hypodensity, likely representing small vessel ischemic disease in a patient this age. 4. Stable atrophy. 5. If further evaluation is clinically indicated, an MRI of the brain is recommended.
--- NOTE | 2017-10-13 21:36 | CT ---
EXAM: CT Cervical Spine Without Intravenous Contrast EXAM DATE/TIME: 10/13/2017 8:14 PM CLINICAL HISTORY: The patient age is 76 years old and is female; Signs and symptoms; Numbness; Additional info: Ams- possible trauma Facility exam id and description: Ct csps cervical spine w/o contrast TECHNIQUE: Axial computed tomography images of the cervical spine without intravenous contrast. All CT scans at this facility use one or more dose reduction techniques, viz.: automated exposure control; ma/kV adjustment per patient size (including targeted exams where dose is matched to indication; i.e. head); or iterative reconstruction technique. Coronal and sagittal reformatted images were created and reviewed. COMPARISON: CT - CERVICAL SPINE W/O CONTRAST 2017-10-02 13:11 FINDINGS: Limitations: This study is limited by patient positioning. Vertebrae: No definitive acute cervical spine fracture or subluxation. The cervical lordosis is preserved. The facet alignment is preserved bilaterally. The occipital condyles and C1-C2 articulations appear intact. There is angulation of the cervical spine to the right. Discs/spinal canal/neural foramina: Spondylosis is visualized at multiple cervical levels. Soft tissues: The prevertebral soft tissues appear within normal limits. Vasculature: There is atherosclerotic calcification of the extracranial carotid arteries. Thyroid: Within the left thyroid lobe, there is a 1.1 x 0.9 cm hypodense nodule. Lung apices: No pneumothorax. There is biapical parenchymal scarring. IMPRESSION: 1. No definitive acute cervical spine fracture or subluxation. 2. Spondylosis is visualized at multiple cervical levels. 3. Within the left thyroid lobe, there is a 1.1 x 0.9 cm hypodense nodule. Nonemergent ultrasonography is recommended. 4. Incidental/non-acute findings are described above.
[2017-10-13 21:38] LABS: VENOUS BLOOD GAS PO2 96 mm/Hg (30-55); VENOUS BLOOD PH 7.28 (7.32-7.43)
[2017-10-13] MEDS ORDERED: Aztreonam 2 Gm in NS 100mL 100 ML IVPB SCH (22:00)
--- NOTE | 2017-10-13 23:16 | CP.PCM.PN ---
Subjective - Date & Time of Evaluation Date of Evaluation: 10/13/17 Time of Evaluation: 23:16 - Subjective Subjective: Received a call from regarding upgrade in CT head report suggesting progressive increase in density of left MCA . Discussed with . Will get Consultation with , neurocheck and MRI/MRA brain. Objective - Vital Signs/Intake and Output Vital Signs (last 24 hours): Temp Pulse Resp BP Pulse Ox 97.4 F L 83 20 149/68 97 10/13/17 22:55 10/13/17 22:55 10/13/17 22:55 10/13/17 22:55 10/13/17 18:00 Intake and Output: 10/13/17 10/14/17 18:59 06:59 Intake Total 330 Balance 330 - Medications Medications: Current Medications Famotidine (Pepcid) 20 mg IVP BID JEAN CLAUDE Azithromycin (Zithromax 500mg In Ns) 500 mg in 250 mls @ 167 mls/hr IVPB 2000 JEAN CLAUDE PRN Reason: Protocol Last Admin: 10/13/17 21:51 Dose: 167 mls/hr Phytonadione 10 mg/ Sodium (Chloride) 51 mls @ 100 mls/hr IV ONCE ONE Stop: 10/14/17 02:30 Meropenem 1 gm/ Sodium (Chloride) 100 mls @ 100 mls/hr IVPB Q12 JEAN CLAUDE PRN Reason: Protocol Metronidazole (Flagyl) 500 mg in 100 mls @ 100 mls/hr IVPB STAT STA PRN Reason: Protocol Stop: 10/14/17 00:03 - Labs Labs: PT 37.2 SECONDS (9.4-12.5) H 10/13/17 15:14 INR 3.33 (0.93-1.08) H 10/13/17 15:14 APTT 42.2 Seconds (25.1-36.5) H 10/13/17 15:14
[2017-10-13] MEDS: Meropenem 1 GM in Sodium Chloride 0.9% 100 ML IVPB SCH (23:18)
[2017-10-13 23:26] VITALS: BMI 23.5
[2017-10-13] MEDS ORDERED: Pneumococcal 23-Valent Vaccine IM ONE (23:27)
[2017-10-13] MEDS ORDERED: Influenza Vaccine 60 mcg/0.5 mL SYR (4YR UP) IM ONE (23:27)
[2017-10-14] MEDS ORDERED: Sodium Chloride 0.9% 100 ML IV SCH (00:01)
[2017-10-14] MEDS ORDERED: Phytonadione 10 MG in Sodium Chloride 0.9% 50 ML IV ONE (02:00)
[2017-10-14] MEDS ORDERED: Vancomycin 1gm in NS 250ml 1 GM/250 ML BAG IVPB SCH (02:00)
[2017-10-14] MEDS ORDERED: metroNIDAZOLE IV 500 mg/100 ml 500 MG/100 ML BAG IVPB SCH (02:00)
[2017-10-14] MEDS ORDERED: Vancomycin 500 mg Inj IVPB SCH (02:00)
--- NOTE | 2017-10-14 05:18 | HP ---
REASON FOR ADMISSION: Patient came in because she feels weak. She came in today. The nurse called me because the patient's blood pressure systolic was 80 and she feels weak. HISTORY OF PRESENT ILLNESS: This is a 76-year-old female who was bedridden with multiple medical problems; history of chronic atrial fibrillation on Coumadin, hypertension, UTI, aortic aneurysm, stent replacement and CVA. She came in because the nurse found her blood pressure systolic in the 80s. Patient seems also a little bit on the lethargic side and she looked pale. Patient was seeing in the Emergency Room and her hemoglobin was 5.5 range plus or minus. Patient has no rectal bleeding, has no any hemoptysis and she has no bruise in her abdominal wall or in the back. Patient was recently discharged from the hospital within the last day 24 hours and brought in back for further evaluations. Initial CT of her abdomen because of the associated tenderness on the left side shows anterior abdominal wall hematoma. Patient had a CT before that in the first admission and it was negative for any hematoma. No history of falls in the hospital. No history of trauma. PAST MEDICAL HISTORY: As mentioned above. The patient is bedridden, CVA, does not move much. She has chronic AFib, thrombocytopenia, hypertension, weakness allover, history of UTI recently. Patient had also Bush catheter in, because she is bedridden. She has history of hepatitis C, thrombocytopenia, anemia. Last hemoglobin was 9.5 range. ALLERGIES: PENICILLIN. SOCIAL HISTORY: She lives with her daughter, very supportive. REVIEW OF SYSTEMS: She is bedridden. She does not move much. She needs assistance for everything including eating. She also has history of difficulties sitting on the chair now because of the recent chronic hip dislocation. She also gets bruises from blood drawing, but otherwise negative. She also has neck discomfort. 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 She does complain of back pain. She has chronic anxiety also, COPD, dyspnea sometimes. Patient also had chronic indwelling Bush catheter. PHYSICAL EXAMINATION: VITAL SIGNS: Today on 10/13/2017, her temperature was 98.5, heart rate was 78, blood pressure was 80s and went up with IV fluid to 102/46, respirations 20 and saturation 100%. HEAD AND NECK: Very stiff neck, she has a tendency to put her neck on the right side and spastic neck, but she opened her eyes in response. CHEST: Diminished breath sounds. CARDIAC: First sound and second sound are normal. ABDOMEN: There is tenderness more on the left side of her abdominal wall and there are no bruises on the skin, but very tender. EXTREMITIES: No edema. She does have heel cushions. NEUROLOGIC: Patient is bedridden, does not move her lower extremity or upper extremity at this time. LABORATORY STUDIES: White count is 14.1, hemoglobin is 5.2, hematocrit is 16.2, and platelets are 194. Sodium 134, potassium 4.7, chloride 102, bicarbonate 23. BUN of 23 and creatinine of 1.6. Blood sugar 180. Calcium is 7.6, AST 82 and ALT and alkaline phosphatase is normal. Total protein 5 and little bit low. Albumin 2.4 and little bit low. The patient also had a CAT scan of the abdomen and pelvis which was done while the patient was in Emergency Room and the CT showed large hematoma within the left into the left pelvis, presumed hematoma arises from left rectus sheath and exerts considerable surrounding mass effect. There is also small amount of perihepatic ascites,. There are also splenic infarctions, possibly fatty liver and small ascites. She also had a stent-graft repair of descending thoracic aortic aneurysm with some opacification outside , the outline of the stent along the inferior margin of the repair, chronic lesion to the aneurysm. IMPRESSION AND PLAN: This is a 76-year-old female with multiple medical problems, came in with hypotension, systolic 80s due to low hemoglobin in the 5 range. The patient will be admitted to ICU, fresh frozen plasma will be given and she will also be given blood transfusions. When she came in, her PT/INR is 3.3 and PTT 42. Patient also had platelets which is surprisingly elevated at 194, usually she has it in the 70s. We will transfuse blood. We will give fresh frozen plasma and also blood culture will be done. We will cover up of her antibiotics and we will follow up in ICU. Patient's surgical team sees the patient, no surgery at this time. Continue transfusion, fresh frozen plasma and we will follow up clinically. Continue IV fluids for now and ruled out of any another medication at this time until she stabilized. Albin Forte MD
[2017-10-14 07:22] LABS: BASO # 0.01 K/mm3 (0.0-2.0); BASO % 0.1 % (0.0-3.0); EOS % 0.4 % (1.5-5.0); GRAN # 6.37 (1.4-6.5); GRAN % 67.8 % (50.0-68.0); HEMOGLOBIN 8.4 g/dL (12.0-16.0); LYMPH # 1.8 (1.2-3.4); LYMPH % 18.7 % (22.0-35.0); MEAN CELL VOLUME 87.5 fl (80.0-105.0); MEAN CORPUSCULAR HEMOGLOBIN 30.1 pg (25.0-35.0); MEAN CORPUSCULAR HGB CONC 34.4 g/dl (31.0-37.0); MEAN PLATELET VOLUME 9.6 fl (7.0-11.0); MONO # 1.2 (0.1-0.6); RBC 2.79 10^6/uL (3.5-6.1); RED CELL DISTRIBUTION WIDTH 16.8 % (11.5-14.5); WHITE BLOOD COUNT 9.4 10^3/ul (4.5-11.0)
[2017-10-14 08:08] LABS: INR 1.17 (0.93-1.08); PROTHROMBIN TIME 12.9 SECONDS (9.4-12.5)
[2017-10-14] MEDS: Sodium Chloride 0.9% 1,000 ML IV SCH ×3 (08:39→22:18)
[2017-10-14 08:44] LABS: ALB/GLOB RATIO 1.1 (1.1-1.8); ALBUMIN 2.8 g/dL (3.0-4.8); ALT/SGPT 54 U/L (7-56); AST/SGOT 83 U/L (14-36); BLOOD UREA NITROGEN 20 mg/dL (7-21); CALCIUM 7.5 mg/dL (8.4-10.5); GFR AFRICAN-AMERICAN > 60; GFR NON-AFRICAN AMERICAN > 60
--- NOTE | 2017-10-14 08:55 | CP.PCM.PN ---
Subjective - Date & Time of Evaluation Date of Evaluation: 10/14/17 Time of Evaluation: 07:00 - Subjective Subjective: Surgery Progress note. Dr. Gonzales. Pt seen and examined at bedside. No acute events overnight reported. Patient is currently lethargic but easily arousable. Bush in place. No acute distress Objective - Vital Signs/Intake and Output Vital Signs (last 24 hours): Temp Pulse Resp BP Pulse Ox 97.3 F L 98 H 13 140/68 100 10/14/17 04:28 10/14/17 06:11 10/14/17 06:11 10/14/17 06:12 10/14/17 06:11 Intake and Output: 10/14/17 10/14/17 06:59 18:59 Intake Total 2276 Output Total 400 Balance 1876 - Medications Medications: Current Medications Famotidine (Pepcid) 20 mg IVP BID JE[facility] CLAUDE Azithromycin (Zithromax 500mg In Ns) 500 mg in 250 mls @ 167 mls/hr IVPB 2000 JEAN CLAUDE PRN Reason: Protocol Last Admin: 10/13/17 21:51 Dose: 167 mls/hr Meropenem 1 gm/ Sodium (Chloride) 100 mls @ 100 mls/hr IVPB Q12 JEAN CLAUDE PRN Reason: Protocol Last Admin: 10/13/17 23:18 Dose: 100 mls/hr Sodium Chloride (Sodium Chloride 0.9%) 1,000 mls @ 100 mls/hr IV .Q10H JEAN CLAUDE Last Admin: 10/14/17 08:39 Dose: 100 mls/hr - Labs Labs: 10/14/17 07:00 10/14/17 07:00 PT 12.9 SECONDS (9.4-12.5) H 10/14/17 07:30 INR 1.17 (0.93-1.08) H 10/14/17 07:30 APTT 42.2 Seconds (25.1-36.5) H 10/13/17 15:14 - Constitutional Appears: Non-toxic, No Acute Distress - Head Exam Head Exam: ATRAUMATIC, NORMAL INSPECTION, NORMOCEPHALIC - ENT Exam ENT Exam: Mucous Membranes Moist - GI/Abdominal Exam GI & Abdominal Exam: Soft Additional comments: involuntary guarding. Firm to palpation left sided abdomen. Tender to palpation , left greater than right. No ecchymosis. No rebound - Exam Additional comments: Bush in place - Extremities Exam Extremities Exam: absent: Calf Tenderness - Skin Skin Exam: Dry, Intact, Normal Color, Warm Assessment and Plan - Assessment and Plan (Free Text) Assessment: 76yo F PMHx of AFib, DVT on coumadin here with rectus sheath hematoma s/p fall Plan: - Transfuse as needed - Hold AC, Monitor INR, H/H - Consider IR if continues to bleed - strict I&O - IVF - Abx as per ID - pain management - serial abdominal exams Further recs as per Dr. Christian Benoit PGY1 surgery pager: [phone]
--- NOTE | 2017-10-14 09:53 | CARD ---
APPROVED REPORT EKG Measurement Heart [id number] <Conclusion> Normal sinus rhythm T wave abnormality, consider lateral ischemia Prolonged QT Abnormal ECG
[2017-10-14] MEDS: Meropenem 1 GM in Sodium Chloride 0.9% 100 ML IVPB SCH ×2 (10:01→22:00)
--- NOTE | 2017-10-14 10:50 | CP.PCM.PN ---
Subjective - Date & Time of Evaluation Date of Evaluation: 10/14/17 Time of Evaluation: 07:35 - Subjective Subjective: Pt seen and examined, remains lethargic, but arousable to painful, noxious stimuli. Pt is s/p 3u PRBC and 2u FFP, VIt K, transfusion, with appropriate response in HH. Objective - Vital Signs/Intake and Output Vital Signs (last 24 hours): Temp Pulse Resp BP Pulse Ox 97.3 F L 98 H 13 140/68 100 10/14/17 04:28 10/14/17 06:11 10/14/17 06:11 10/14/17 06:12 10/14/17 06:11 Intake and Output: 10/14/17 10/14/17 06:59 18:59 Intake Total 2276 Output Total 400 Balance 1876 - Medications Medications: Current Medications Famotidine (Pepcid) 20 mg IVP BID [facility] Last Admin: 10/14/17 10:02 Dose: 20 mg Azithromycin (Zithromax 500mg In Ns) 500 mg in 250 mls @ 167 mls/hr IVPB 2000 JEAN CLAUDE PRN Reason: Protocol Last Admin: 10/13/17 21:51 Dose: 167 mls/hr Meropenem 1 gm/ Sodium (Chloride) 100 mls @ 100 mls/hr IVPB Q12 JEAN CLAUDE PRN Reason: Protocol Last Admin: 10/14/17 10:01 Dose: 100 mls/hr Sodium Chloride (Sodium Chloride 0.9%) 1,000 mls @ 100 mls/hr IV .Q10H [facility] Last Admin: 10/14/17 08:39 Dose: 100 mls/hr - Labs Labs: 10/14/17 07:00 10/14/17 07:00 PT 12.9 SECONDS (9.4-12.5) H 10/14/17 07:30 INR 1.17 (0.93-1.08) H 10/14/17 07:30 APTT 42.2 Seconds (25.1-36.5) H 10/13/17 15:14 - Constitutional Appears: No Acute Distress, Chronically Ill - ENT Exam ENT Exam: Mucous Membranes Moist - Respiratory Exam Respiratory Exam: Clear to Ausculation Bilateral, NORMAL BREATHING PATTERN - Cardiovascular Exam Cardiovascular Exam: REGULAR RHYTHM, +S1, +S2 - GI/Abdominal Exam GI & Abdominal Exam: Firm, Guarding, Normal Bowel Sounds - Extremities Exam Extremities Exam: Full ROM - Neurological Exam Neurological Exam: Altered Assessment and Plan - Assessment and Plan (Free Text) Assessment: 76yo female presents hemorrhagic shock, Sepsis, anemia, rectus sheath hematoma hemorrhagic Shock, resolved Severe Sepsis Dehydration/Renal Failure Anemia Rectus Sheath Hematoma Coagulopathy - currently afebrile, HD stable, comfortable on 2LNC, NAD, remains lethargic (? unclear baseline, hx of old CVA) - CTH without acute findings - On exam firm abdomen, with guarding - s/p 3u prbc, 2u FFP, VitK 10mg IV x 1, with appropriate response in INR, and CBC - surgery following, no acute surgical intervention Recommend: - supp o2 as needed - broad spectrum abx, as per ID - panculture, check procal, UCx, BCx, UA - hold ALL BP meds - IVF hydration - monitor HH and INR closely, repeat labs at noon - PICC line - follow up surgery - hold Coumadin, HSQ - neurology eval - GI ppx, PPI - DVT ppx, SCDs - Obtain LE dopplers - Monitor in MICU critical care time 45 minutes
--- NOTE | 2017-10-14 12:24 | CP.PCM.CON ---
History of Present Illness - History of Present Illness History of Present Illness: 76 year old female with PMH of atrial fibrillation, cerebrovascular accident, history of aortic dissection, seizure disorder, history of thrombocytopenia, HTN , hypercholesterolemia, chronic pain syndrome, history of decubitus ulcers, Chronic active hepatitis C, CVA with left hemiplegia, history of ESBL-producing E. coli UTI was brought in to [facility] because the patient was noted to be lethargic at home. She was recently in a rehab center. There is no note of fevers, no vomiting, no loss of consciousness, no diarrhea, no bleeding noted per rectum, no convulsions. Full review of systems is unobtainable because of the patient's mental status. In the ED, she was noted to have large left rectus sheath hematoma and was anemic with Hgb of 5.2. She was also noted to have leukocytosis and Infectious diseases consult is requested to further evaluate and manage. Review of Systems - Review of Systems Systems not reviewed;Unavailable: Altered Mental Status Past Patient History - Infectious Disease Hx of Infectious Diseases: None - Tetanus Immunizations Tetanus Immunization: Unknown - Past Social History Smoking Status: Former Smoker - CARDIAC Hx Cardiac Disorders: Yes Hx Cardia Arrhythmia: Yes (afib) Hx Congestive Heart Failure: Yes Hx Hypercholesterolemia: Yes Hx Hypertension: Yes Hx Peripheral Edema: Yes (ble +1) - PULMONARY Hx Respiratory Disorders: Yes Hx Chronic Obstructive Pulmonary Disease (COPD): Yes Hx Pneumonia: Yes - NEUROLOGICAL HX Cerebrovascular Accident: Yes (left side paralysis) Hx Dementia: Yes Hx Dizziness: Yes Hx Seizures: Yes Hx Transient Ischemic Attacks (TIA): Yes - HEENT Hx HEENT Problems: No - RENAL Hx Chronic Kidney Disease: No - ENDOCRINE/METABOLIC Hx Endocrine Disorders: No - HEMATOLOGICAL/ONCOLOGICAL Hx Blood Disorders: Yes Hx Anemia: Yes (blood transfusion) Hx Hepatitis C: Yes - INTEGUMENTARY Other/Comment: multiple eccymotic areas both arms, healing small wound r heel, buttocks excoriated, multiple old bruises b/l hand and arms, generalized edema, hx gangrene foot - MUSCULOSKELETAL/RHEUMATOLOGICAL Hx Arthritis: Yes Hx Back Pain: Yes Hx Degenerative Joint Disease: Yes Hx Falls: Yes (past) Hx Fractures: Yes (hip) Hx Herniated Disk: Yes Hx Unsteady Gait: Yes (bedbound) Other/Comment: foot drop both feet, unable to bend elbow left arm - GASTROINTESTINAL Hx Gastrointestinal Disorders: Yes (aspiration precaution.Pureed diet.) Hx Diverticulitis: Yes HX Swallowing Problems: Yes (aspiration precautions) - GENITOURINARY/GYNECOLOGICAL Hx Genitourinary Disorders: Yes (uti,incontinent,ARF) - PSYCHIATRIC Hx Anxiety: Yes Hx Depression: Yes Hx Hallucinations: Yes - SURGICAL HISTORY Hx Appendectomy: Yes Hx Cardiac Catheterization: Yes Hx Coronary Stent: Yes Hx Orthopedic Surgery: Yes ("right hip hemiarthroplasty") Other/Comment: b/l breast implants 50 yrs ago removed 2013 leaking, tubal - ANESTHESIA Hx Anesthesia: Yes Hx Anesthesia Reactions: No Hx Malignant Hyperthermia: No Meds Allergies/Adverse Reactions: Allergies Allergy/AdvReac Type Severity Reaction Status Date / Time Penicillins AdvReac Intermediate RASH Verified 10/04/17 17:22 - Medications Medications: Current Medications Famotidine (Pepcid) 20 mg IVP BID JEAN CLAUDE Azithromycin (Zithromax 500mg In Ns) 500 mg in 250 mls @ 167 mls/hr IVPB 2000 JEAN CLAUDE PRN Reason: Protocol Last Admin: 10/13/17 21:51 Dose: 167 mls/hr Meropenem 1 gm/ Sodium (Chloride) 100 mls @ 100 mls/hr IVPB Q12 JEAN CLAUDE PRN Reason: Protocol Last Admin: 10/13/17 23:18 Dose: 100 mls/hr Sodium Chloride (Sodium Chloride 0.9%) 1,000 mls @ 100 mls/hr IV .Q10H [facility]AN CLAUDE Physical Exam - Constitutional Appears: Non-toxic - Head Exam Head Exam: NORMAL INSPECTION - ENT Exam ENT Exam: Mucous Membranes Moist - Neck Exam Neck exam: Negative for: Lymphadenopathy, Meningismus - Respiratory Exam Respiratory Exam: Decreased Breath Sounds - Cardiovascular Exam Cardiovascular Exam: +S1, +S2 - GI/Abdominal Exam GI & Abdominal Exam: Soft Additional comments: firm on the left side of the abdomen without guarding, no rebound tenderness, no rigidity Results - Vital Signs Recent Vital Signs: Last Vital Signs Temp 97.3 F L 10/14/17 04:28 Pulse 98 H 10/14/17 06:11 Resp 13 10/14/17 06:11 BP 140/68 10/14/17 06:12 Pulse Ox 100 10/14/17 06:11 - Labs Result Diagrams: 10/14/17 07:00 10/14/17 07:00 Labs: Laboratory Results - last 24 hr 10/13/17 10/13/17 19:00 21:27 pO2 96 H VBG pH 7.28 L VBG pCO2 52.0 VBG HCO3 24.4 VBG Total CO2 26.0 VBG O2 Sat (Calc) 99.7 H VBG Base Excess -3.0 L VBG Potassium 5.5 H Sodium 136.0 Chloride 106.0 Glucose 146 H Lactate 4.1 H* FiO2 21.0 Venous Blood Potassium 5.5 H Urine Color Yellow Urine Appearance Clear Urine pH 7.5 Ur Specific [place] 1.010 Urine Protein 100 H Urine Glucose (UA) Negative Urine Ketones Negative Urine Blood Small H Urine Nitrate Negative Urine Bilirubin Negative Urine Urobilinogen 0.2 Ur Leukocyte Esterase Small H Urine RBC 0 - 2 Urine WBC 2 - 5 Ur Epithelial Cells 0 - 2 Urine Bacteria None Assessment & Plan - Assessment and Plan (Free Text) Plan: Assessment Systemic Inflammatory response syndrome, probably due to acute drop in Hgb from left rectus sheath hematoma, R/O sepsis Stage 4 decubitus ulcer history of right lower lobe healthcare-associated pneumonia history of ESBL E. coli and Enterococcus UTI history of ESBL E. coli UTI atrial fibrillation cerebrovascular accident history of aortic dissection seizure disorder history of thrombocytopenia HTN hypercholesterolemia chronic pain syndrome history of decubitus ulcers chronic active hepatitis C Plan Patient given Meropenem and will follow up blood, urine cx; reviewed CT A/P; follow up plan of Surgery for rectus sheath hematoma will trend WBC count and monitor clinically.
[2017-10-14 13:52] LABS: VENOUS BLOOD GAS BASE EXCESS 0.3 mmol/L (0.0-2.0); VENOUS BLOOD GAS PO2 35 mm/Hg (30-55); VENOUS BLOOD PH 7.39 (7.32-7.43)
[2017-10-14 13:56] LABS: HEMOGLOBIN 8.6 g/dL (12.0-16.0); MEAN CELL VOLUME 87.2 fl (80.0-105.0); MEAN CORPUSCULAR HEMOGLOBIN 29.8 pg (25.0-35.0); MEAN CORPUSCULAR HGB CONC 34.1 g/dl (31.0-37.0); MEAN PLATELET VOLUME 9.2 fl (7.0-11.0); RBC 2.89 10^6/uL (3.5-6.1); RED CELL DISTRIBUTION WIDTH 16.9 % (11.5-14.5); WHITE BLOOD COUNT 7.5 10^3/ul (4.5-11.0)
--- NOTE | 2017-10-14 17:58 | CON ---
DATE: 10/14/2017 CHIEF COMPLAINT: Altered mental status. 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 coli, history of chronic active hepatitis C, history of ESBL producing E. coli, UTI, who was brought to the [facility] because of feeling lethargic at home. There is no evidence of any fever. No vomiting. No loss of consciousness. She is lethargic. She came in with hemoglobin of 5.2, status post transfusion. Today is above 8. She was also found to have a large left rectus sheath hematoma and with anemia of hemoglobin of 5.2 in the ER. Undergoing surgical evaluation in regards to a large left rectus sheath hematoma. Currently, the patient is on broad-spectrum antibiotics such as meropenem and the patient will be going for an MRI of the brain to evaluate for any acute infarct. CAT scan of the head did show some old encephalomalacia in the right MCA territory. 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 coli UTI. ALLERGIES: ALLERGIC TO PENICILLIN. FAMILY HISTORY: Noncontributory. SOCIAL HISTORY: No illicit drug use, smoking, or EtOH abuse. REVIEW OF SYSTEMS: The 14-point review of systems negative as per the HPI. PHYSICAL EXAMINATION: VITAL SIGNS: Temperature afebrile, pulse rate 94, blood pressure 114/46, respiratory rate of 14, oxygen saturation 99% via nasal cannula. GENERAL: The patient is drowsy, in no acute distress. HEENT: Head is atraumatic and normocephalic. PERRLA. Extraocular muscles are intact. NECK: Supple. No JVD. No adenopathy noted. LUNGS: Decreased breath sounds bilaterally. HEART: S1, S2. Normal rate and rhythm. No murmurs, rubs, or gallops. ABDOMEN: Soft, nontender, and nondistended. Bowel sounds are present. Abdomen is firm on the left side of the abdomen without any guarding. No rebound tenderness. No rigidity. NEURO: The patient is drowsy, in no acute distress. Recall after 5 minutes is 0/3. Poor attention and slow thought process. Cranial nerves II through XII intact except for residual left facial droop from prior CVA. MOTOR: She has left spastic hemiplegia from old CVA and kris the lower extremity muscles. She moves the right side without any difficulty. Coordination and gait deferred for now. DTRs are 1+ throughout. LABORATORY DATA: Hemoglobin of 8.6, hematocrit 25.2, and platelet count of 85. Sodium 139, potassium 4.6, chloride of 106, carbon dioxide of 23, BUN of 20, and creatinine 0.9. Random glucose of 94. ASSESSMENT AND PLAN: This is a 76-year-old woman with past medical history of dyslipidemia, hypertension, atrial fibrillation, right middle cerebral artery territory infarct with residual left spastic hemiplegia, chronic left facial droop with prior CVA, history of seizure disorder secondary to a large right middle cerebral artery infarct, history of chronic pain syndrome, history of sepsis secondary to Escherichia coli, history of thrombocytopenia, history of chronic active hepatitis C, improved, presents to the hospital for altered mental status and lethargy. Lethargy is likely secondary to acute drop of hemoglobin causing rectus sheath hematoma. Recommend to rule out any sepsis and has underlying systemic inflammatory response syndrome. At this time, I recommend, 1. MRI of the brain to rule out for any acute infarction. 2. Monitor electrolytes and correct accordingly. 3. Continue with antibiotics as per ID in regards to SIRS. 4. Avoid systolic drops in blood pressure. 5. Delirium precautions. 6. Continue current present medical management. Thank you for this consult. Rell Bernstein MD
[2017-10-14] MEDS: Azithromycin 500MG/NS 250ml 500 MG/250 ML BAG IVPB SCH (22:19)
--- NOTE | 2017-10-14 23:57 | CON ---
DATE: 10/14/2017 REFERRING PHYSICIAN: Dr. Albin Forte REASON FOR CONSULTATION: Evaluation of patient unknown to me who presents with a mild elevation of BUN and creatinine in the setting of severe anemia, hypotension and possible sepsis. HISTORY OF PRESENT ILLNESS: Patient is a 76-year-old white female who presently noncommunicative. History is obtained from chart and from the nursing staff in the ICU. Patient has a history of hypertension, history of atrial fibrillation, past history of a right-sided CVA, patient is on chronic anticoagulation. Patient has multiple falls at home. History of a UTI with indwelling Bush catheter. Past history of hepatitis C, history of seizure disorder, history of peripheral vascular disease status post thoracic aortic aneurysm with endovascular graft repair. Patient was brought to the hospital after being found poorly responsive at home and on the floor. She was noted to be profoundly hypotensive. She was noted to have a hemoglobin of 5.2. Her baseline hemoglobin has been in the upper 8 to low 9 range. Patient was noted to have a severe coagulopathy with a PT of 37.2 and INR of 3.33. Patient was promptly admitted to the ICU for severe hypotension, altered mental status and abdominal CT scan was done which showed a large right rectus sheath hematoma likely secondary to fall at home. Patient has received multiple blood products, packed red blood cells and FFP. Her hemodynamics appeared to have stabilized in the ICU. Patient's admitting chest x-ray showed a possible left retrocardiac infiltrate. Her urine showed no significant pyuria. She is on empiric antibiotic therapy. Her BUN and creatinine were baseline at 14 and 0.6. In the last 24 hours, it yfn to 23 and 1.6. High urine output total 400 ml for the first 24 hours of her hospitalization. We are asked to evaluate the patient for her elevated BUN and creatinine in the setting of severe hypotension, shock, intra-abdominal bleed and possible sepsis. PAST MEDICAL HISTORY: Significant for that of hypertension, history of atrial fibrillation, on chronic anticoagulation, past history of right-sided CVA, history of mild anemia, history of frequent UTIs with chronic Bush catheter placement, hepatitis C, history of seizure disorder, history of peripheral vascular disease status post TIA with endovascular graft repair, history of moderate anemia with a baseline hemoglobin in the 9 to 10 range. MEDICATIONS: At home, include that of Desyrel, oxycodone, Keppra, Ambien, Coumadin, K-Tab, Lopressor, magnesium oxide, losartan, Neurontin, p.o. Lasix, Pepcid and Colace. ALLERGIES: PATIENT IS ALLERGIC TO PENICILLIN. Present medications in hospital include that of meropenem, Pepcid, normal saline 100 ml an hour, and Zithromax. SOCIAL HISTORY: As per chart. No history of cigarette smoking. No history of alcohol use. FAMILY HISTORY: Not obtainable. REVIEW OF SYSTEMS: Not obtainable. PHYSICAL EXAMINATION: GENERAL: The patient is seen, noncommunicative, lying comfortable in bed in the ICU bed 1. VITAL SIGNS: Blood pressure 114/46, pulse of 94, temperature 97.3 with a respiratory rate of 14. Oxygen saturation is 100%. HEENT: Shows her be normocephalic, atraumatic. Conjunctivae are pale. Sclerae are nonicteric. NECK: Supple. No neck vein distention. No thyromegaly. No lymphadenopathy. No bruits. CHEST: Clear to auscultation and percussion. No rales, no rhonchi or wheezing. CARDIOVASCULAR: Shows an irregular rate and rhythm with a soft systolic murmur left lower sternal border. No S3, no S4, no rub. ABDOMEN: Soft. Bowel sounds normal. No tenderness on palpation of her abdomen. No rebound or guarding. BACK: No CVAT. No spinal tenderness. EXTREMITIES: Show no lower extremity cyanosis, clubbing or edema. Lower extremity pulses are diminished at 1 to 2+ bilaterally. NEURO: For the most part, unobtainable as patient is noncommunicative. LABORATORY DATA AND IMAGING: Head CT scan done shows an old right-sided CVA with bilateral small vessel disease changes. Chest x-ray showed a questionable left retrocardiac infiltrate. Microbiology, all cultures are pending. Labs, CBC, white blood cell count 14.1 on admission, hemoglobin 5.2, today white blood cell count down to 9.4 on antibiotic therapy. Hemoglobin post transfusion is 8.4. Platelet count is 97,000. Coags, coagulopathy has been reversed. PT is 12.9 with an INR of 1.17. Blood gas from yesterday, venous blood gas pH 7.28, PO2 of 96 with a CO2 of 52. Lactic acid level was elevated at 4.1. Chemistries showed a BUN of 14 up to 23, today it is down to 20. Creatinine 0.6 up to 1.6, today it is down to 0.9. Electrolytes are normal. Bilirubin mildly elevated at 1.5. Calcium is 7.5. Lactic acid is down to 2.3. Albumin is 2.8. Urine showed 2 to 3+ protein, 0 to 2 red blood cells, 2 to 5 white blood cells with no bacteria. ASSESSMENT: 1. Status post acute rise in BUN and creatinine in the setting of hypotension secondary to severe anemia and possible sepsis. With correction of her hemodynamics, her BUN and creatinine have fallen back to baseline range. 2. High fall risk at home. In the setting of fall, patient likely had a right rectus sheath hematoma which appears to be large and which appears to account for her 3 unit drop in her red blood cell mass. Patient has received transfusions and her hemoglobin is close to her normal range. 3. Possible sepsis. Urine cultures are pending but no evidence of urinary tract infection based on her initial urinalysis. 4. Possible pneumonia. Left retrocardiac infiltrate noted on chest x-ray. Patient will continue Zithromax and meropenem. 5 History of atrial fibrillation, chronic anticoagulation, currently on hold, past history of cerebrovascular accident. 6. History of peripheral vascular disease, status post TAAA with endovascular graft repair. 7. Past history of hepatitis C. 8. History of seizure disorder, on Keppra therapy. 9. History of hypertension. Patient's blood pressure is currently controlled and for now, patient may continue off blood pressure medication. PLAN: 1. Continue to monitor patient closely in the ICU until hemodynamics have stabilized and she has no further drop in her hemoglobin. 2. Continue empiric antibiotic therapy for possible pneumonia, unlikely that she has a repeat urinary tract infection. 3. Monitor Is and Os. Cautioned not to get too far ahead on fluid hydration. 4. Transfuse blood products as necessary. 5. Try and obtain information on patient's baseline mental status. At present, she is noncommunicative. 6. Post ICU stay, attempt to prevent further falls at home. 7. Surgical evaluation for her right rectus sheath hematoma in progress but this will likely reabsorb on its own. Thank you for letting me to participate and sharing in the care of your patient. Jaycob Cummins MD [facility] # [id number]
[2017-10-15 07:00] LABS: MEAN CORPUSCULAR HEMOGLOBIN 30.3 pg (25.0-35.0); MEAN CORPUSCULAR HGB CONC 33.3 g/dl (31.0-37.0); MEAN PLATELET VOLUME 9.7 fl (7.0-11.0); RBC 2.44 10^6/uL (3.5-6.1); RED CELL DISTRIBUTION WIDTH 17.7 % (11.5-14.5); WHITE BLOOD COUNT 5.6 10^3/ul (4.5-11.0)
[2017-10-15 07:19] LABS: INR 1.12 (0.93-1.08); PROTHROMBIN TIME 12.4 SECONDS (9.4-12.5)
[2017-10-15 07:40] LABS: BLOOD UREA NITROGEN 14 mg/dL (7-21); CALCIUM 7.8 mg/dL (8.4-10.5); GFR AFRICAN-AMERICAN > 60; GFR NON-AFRICAN AMERICAN > 60; MAGNESIUM 2.4 mg/dL (1.7-2.2)
[2017-10-15 07:43] LABS: HEMOGLOBIN 7.4 g/dL (12.0-16.0)
--- NOTE | 2017-10-15 07:55 | PN ---
DATE: 10/14/2017 SUBJECTIVE: The patient is clinically stable, in no distress. No nausea, no vomiting. Admitted to the ICU. She responds more now but still little lethargic. PHYSICAL EXAMINATION: VITAL SIGNS: Temperature 99, heart rate 101, blood pressure is 156/71, respirations 14, saturation 100%. HEAD AND NECK: Normal. No JVD, no thyromegaly. CHEST: Clear with good air entry. CARDIAC: First sound, second sound normal. ABDOMEN: Soft. She has tenderness mainly in the left lower and left side of the abdomen. EXTREMITIES: There is mild trace edema, and there are cushions in both heels. NEUROLOGIC: The patient does not move lower or upper extremities. LABORATORY DATA: Sodium 139, potassium 4.6, chloride 106, bicarb 23, BUN 20, creatinine 0.9. Blood sugar 94. Lactic acid 2.3. Calcium 7.5. Total bilirubin 1.5. AST 83. ALT and alk phos are normal. The patient also had CBC, white count 7.5, hemoglobin is 8.6, hematocrit is 25.2, and platelets 85. The patient also had cultures been done, blood culture done was negative. IMPRESSION AND PLAN: 1. Abdominal wall bleed. The patient had a drop in hemoglobin, status post transfusion. Continue to monitor H and H. I will monitor clinically. 2. The patient runs low grade fevers. She had been in the hospital with a possibility of sepsis. Her blood cultures x2 is negative, and she did have a history of Bush catheter urine with recurrent urinary tract infection before. Urine shows more leukocytes related to 2 to 5 white blood cells, that is negative. We will discuss with Infectious Disease, may be we will discontinue antibiotics, if it is not needed. 3. History of paroxysmal atrial fibrillation. Currently, she is off anticoagulation due to her bleeding disorder. We will monitor her case. 4. Chronic hepatitis C. 5. History of aortic aneurysm. Stent placement. 5. History of cerebrovascular accident, has been bedridden for few years. 6. History of hip dislocation, this seems chronically . 7. History of chronic osteoarthritis and spondylosis, has been done CT before. 8. History of thyroid nodules. We will monitor that clinically at this time. We will continue current therapy, and we will follow up clinically. Continue SCDs. Albin Forte MD [facility] # [id number]
--- NOTE | 2017-10-15 08:26 | CP.PCM.PN ---
Subjective - Date & Time of Evaluation Date of Evaluation: 10/15/17 Time of Evaluation: 07:05 - Subjective Subjective: Pt seen and examined, mental status significantly improved, conversing, awake, alert, oriented to place and person. Objective - Vital Signs/Intake and Output Vital Signs (last 24 hours): Temp Pulse Resp BP Pulse Ox 99.2 F 106 H 14 159/74 H 100 10/15/17 04:00 10/15/17 06:00 10/15/17 06:00 10/15/17 06:00 10/15/17 06:00 Intake and Output: 10/15/17 10/15/17 06:59 18:59 Intake Total 2750 Output Total 750 Balance 2000 - Medications Medications: Current Medications Famotidine (Pepcid) 20 mg IVP BID [facility] Last Admin: 10/14/17 17:35 Dose: 20 mg Meropenem 1 gm/ Sodium (Chloride) 100 mls @ 100 mls/hr IVPB Q12 [facility] PRN Reason: Protocol Last Admin: 10/14/17 22:00 Dose: 100 mls/hr Sodium Chloride (Sodium Chloride 0.9%) 1,000 mls @ 100 mls/hr IV .Q10H [facility] Last Admin: 10/14/17 22:18 Dose: 100 mls/hr Azithromycin (Zithromax 500mg In Ns) 500 mg in 250 mls @ 167 mls/hr IVPB 2200 [facility] PRN Reason: Protocol Last Admin: 10/14/17 22:19 Dose: 167 mls/hr - Labs Labs: 10/15/17 06:30 10/15/17 06:30 PT 12.4 SECONDS (9.4-12.5) 10/15/17 06:30 INR 1.12 (0.93-1.08) H 10/15/17 06:30 APTT 42.2 Seconds (25.1-36.5) H 10/13/17 15:14 - Constitutional Appears: Well, Non-toxic, No Acute Distress - ENT Exam ENT Exam: Mucous Membranes Moist - Respiratory Exam Respiratory Exam: Clear to Ausculation Bilateral, NORMAL BREATHING PATTERN - Cardiovascular Exam Cardiovascular Exam: REGULAR RHYTHM, +S1, +S2 - GI/Abdominal Exam GI & Abdominal Exam: Firm, Normal Bowel Sounds - Neurological Exam Neurological Exam: Alert, Awake Assessment and Plan - Assessment and Plan (Free Text) Assessment: 76yo female presents hemorrhagic shock, Sepsis, anemia, rectus sheath hematoma hemorrhagic Shock, resolved Severe Sepsis Dehydration/Renal Failure Anemia Rectus Sheath Hematoma Coagulopathy, reversed - currently afebrile, HD stable, comfortable on 2LNC, NAD, mental status significantly improved, awake, alert, answering questions - s/p 3u prbc, 2u FFP, VitK 10mg IV x 1 on 10/13/17, with appropriate response in INR, and CBC - surgery following, no acute surgical intervention - todays HH 7.4, ?dilutional, on IVF, will repeat HH at noon Recommend: - supp o2 as needed - broad spectrum abx, as per ID - hold ALL BP meds - IVF hydration - monitor HH and INR closely, repeat labs at noon - PICC line - follow up surgery - hold Coumadin, HSQ - neurology eval appreciated - GI ppx, PPI - DVT ppx, SCDs - Obtain LE dopplers - Monitor in MICU
[2017-10-15] MEDS: Meropenem 1 GM in Sodium Chloride 0.9% 100 ML IVPB SCH (09:05)
[2017-10-15] MEDS: Nystatin 100,000 Units/gm Topical Pow(15 gm) TOP SCH ×2 (09:20→22:00)
--- NOTE | 2017-10-15 12:30 | CP.PCM.PN ---
Subjective - Date & Time of Evaluation Date of Evaluation: 10/15/17 Time of Evaluation: 09:30 - Subjective Subjective: Still somewhat lethargic but easily arousable, no fevers overnight, no diarrhea. Objective - Vital Signs/Intake and Output Vital Signs (last 24 hours): Temp Pulse Resp BP Pulse Ox 99.2 F 106 H 14 159/74 H 100 10/15/17 04:00 10/15/17 06:00 10/15/17 06:00 10/15/17 06:00 10/15/17 06:00 Intake and Output: 10/15/17 10/15/17 06:59 18:59 Intake Total 2750 Output Total 750 Balance 2000 - Medications Medications: Current Medications Famotidine (Pepcid) 20 mg IVP BID [facility] Last Admin: 10/15/17 09:05 Dose: 20 mg Meropenem 1 gm/ Sodium (Chloride) 100 mls @ 100 mls/hr IVPB Q12 [facility] PRN Reason: Protocol Last Admin: 10/15/17 09:05 Dose: 100 mls/hr Sodium Chloride (Sodium Chloride 0.9%) 1,000 mls @ 100 mls/hr IV .Q10H [facility] Last Admin: 10/14/17 22:18 Dose: 100 mls/hr Azithromycin (Zithromax 500mg In Ns) 500 mg in 250 mls @ 167 mls/hr IVPB 2200 [facility] PRN Reason: Protocol Last Admin: 10/14/17 22:19 Dose: 167 mls/hr Nystatin (Nystop Topical Powder) 0 gm TOP Q12 [facility] - Labs Labs: 10/15/17 06:30 10/15/17 06:30 PT 12.4 SECONDS (9.4-12.5) 10/15/17 06:30 INR 1.12 (0.93-1.08) H 10/15/17 06:30 APTT 42.2 Seconds (25.1-36.5) H 10/13/17 15:14 - Constitutional Appears: Chronically Ill - Head Exam Head Exam: NORMAL INSPECTION - ENT Exam ENT Exam: Mucous Membranes Moist - Neck Exam Neck Exam: absent: Meningismus - Respiratory Exam Respiratory Exam: Decreased Breath Sounds - Cardiovascular Exam Cardiovascular Exam: +S1, +S2 - GI/Abdominal Exam GI & Abdominal Exam: Soft. absent: Tenderness Additional comments: firmness noted on the left lower quadrant area without rebound tenderness or rigidity Assessment and Plan - Assessment and Plan (Free Text) Plan: Assessment Systemic Inflammatory response syndrome, probably due to acute drop in Hgb from left rectus sheath hematoma, so far no evidence of sepsis identified Stage 4 decubitus ulcer history of right lower lobe healthcare-associated pneumonia history of ESBL E. coli and Enterococcus UTI history of ESBL E. coli UTI atrial fibrillation cerebrovascular accident history of aortic dissection seizure disorder history of thrombocytopenia HTN hypercholesterolemia chronic pain syndrome history of decubitus ulcers chronic active hepatitis C Plan continue Meropenem day 2 pending final blood, urine cx; reviewed CT A/P; follow up further plans of Surgery for rectus sheath hematoma will trend WBC count and monitor clinically (WBC count has normalized today) - if cultures continue to be negative, will d/c antibiotics
--- NOTE | 2017-10-15 12:36 | PN ---
DATE: SUBJECTIVE: The patient is currently seen in ICU bed 1. Daughter is at bedside. The patient is still non-communicative. She remains on empiric antibiotic therapy. Possible pneumonia, possible polymicrobial UTI. The patient's hemoglobin has dropped to 7.4. She has a very large right rectus sheath hematoma likely secondary to fall. MEDICATIONS: Medication list reviewed. The patient is currently on meropenem, Nystatin, Pepcid, normal saline, and Zithromax. OBJECTIVE: INTAKE AND OUTPUT: Intake of 2750 and output of 750. VITAL SIGNS: Blood pressure presently is 159/74, temperature is 99.2, pulse is 106, and respiratory rate is 14. HEENT: Exam shows her to be normocephalic and atraumatic. Conjunctivae are pale. Sclerae are nonicteric. NECK: Supple. No neck vein distention. CHEST: Clear to auscultation and percussion. No rales and no rhonchi or wheezing. CARDIOVASCULAR: Shows an irregular rate and rhythm with a soft systolic murmur left lower sternal border. GASTROINTESTINAL: Abdomen is soft. Bowel sounds are normal. No tenderness on palpation. No rebound or guarding. EXTREMITIES: No lower extremity cyanosis, clubbing or edema. Positive upper extremity ecchymosis. LABORATORY DATA AND IMAGING STUDIES: CBC: White blood cell count today down to 5.6 from 14.1 on admission and hemoglobin has dropped from a high of 8.6 down to 7.4. Platelet count is 83,000. Chemistries: Normal electrolytes. BUN was 14 and creatinine was 0.7, back to baseline range. Calcium is 7.8. Phosphorus is 2.7 with a magnesium level of 2.4. Albumin level was 2.8 and corrected calcium is normal. ASSESSMENT: 1, Status post mild elevation of BUN and creatinine. This was in the setting of hypotension and severe anemia with an intra-abdominal bleed. Hemodynamics have stabilized. Renal perfusion has improved and her BUN and creatinine are back to baseline range. 2. Right rectus sheath hematoma. This is an all likely responsible for her drop in hemoglobin. The patient should be transfused back to a hemoglobin of 9 to 10. 3. Possible sepsis, possible pneumonia, and possible urinary tract infection. Urine collection shows a polymicrobial collection of bacteria. 4. History of atrial fibrillation on chronic anticoagulation, currently on hold in light of her bleed. 5. Past history of cerebrovascular accident. 6. History of peripheral vascular disease, status post thoracic aortic aneurysm with endovascular graft repair. 7. Past history of hepatitis C. 8. History of seizure disorder, on Keppra therapy. 9. History of hypertension. In all likelihood with normalization of her blood pressure, the patient can be restarted back on blood pressure medication. I will leave this up to the branch operation evaluation manager to start once her hemoglobin levels have stabilized. PLAN: 1. Continue to monitor the patient closely in the ICU until her hemoglobin remained stable. 2. From a renal standpoint, the patient is entirely stable. 3. Once the patient oral intake improves, IV fluids may be discontinued. 4. Suggest transfusing the patient up to a hemoglobin level of 9 to 10. Discussed case with her daughter and her ICU nurse in detail. Jaycob Cummins MD
--- NOTE | 2017-10-15 16:12 | CP.PCM.PN ---
Subjective - Date & Time of Evaluation Date of Evaluation: 10/15/17 Time of Evaluation: 10:20 - Subjective Subjective: Surgery Progress note. Dr. Gonzales Pt seen and examined at bedside. no acute events overnight. Patient still grimaces to abdominal wall palpation. No acute distress. Objective - Vital Signs/Intake and Output Vital Signs (last 24 hours): Temp Pulse Resp BP Pulse Ox 99.2 F 102 H 19 149/80 100 10/15/17 04:00 10/15/17 13:50 10/15/17 13:50 10/15/17 13:32 10/15/17 13:50 Intake and Output: 10/15/17 10/15/17 06:59 18:59 Intake Total 2750 Output Total 750 Balance 2000 - Medications Medications: Current Medications Famotidine (Pepcid) 20 mg IVP BID [facility] Last Admin: 10/15/17 09:05 Dose: 20 mg Sodium Chloride (Sodium Chloride 0.9%) 1,000 mls @ 100 mls/hr IV .Q10H [facility] Last Admin: 10/14/17 22:18 Dose: 100 mls/hr Azithromycin (Zithromax 500mg In Ns) 500 mg in 250 mls @ 167 mls/hr IVPB 2200 [facility] PRN Reason: Protocol Last Admin: 10/14/17 22:19 Dose: 167 mls/hr Meropenem 1 gm/ Sodium (Chloride) 50 mls @ 100 mls/hr IVPB Q12 [facility] PRN Reason: Protocol Nystatin (Nystop Topical Powder) 0 gm TOP Q12 [facility] Last Admin: 10/15/17 09:20 Dose: 1 gm - Labs Labs: 10/15/17 06:30 10/15/17 06:30 PT 12.4 SECONDS (9.4-12.5) 10/15/17 06:30 INR 1.12 (0.93-1.08) H 10/15/17 06:30 APTT 42.2 Seconds (25.1-36.5) H 10/13/17 15:14 - Constitutional Appears: Non-toxic, No Acute Distress - Head Exam Head Exam: ATRAUMATIC, NORMAL INSPECTION, NORMOCEPHALIC - ENT Exam ENT Exam: Mucous Membranes Moist - Respiratory Exam Respiratory Exam: NORMAL BREATHING PATTERN. absent: Accessory Muscle Use, Respiratory Distress - GI/Abdominal Exam GI & Abdominal Exam: Firm, Guarding (voluntary guarding noted. Diffuse tender to palpation. ). absent: Rebound - Extremities Exam Extremities Exam: Normal Inspection. absent: Calf Tenderness - Neurological Exam Neurological Exam: Awake - Skin Skin Exam: Dry, Intact, Normal Color, Warm Assessment and Plan - Assessment and Plan (Free Text) Assessment: 76yo F PMHx of AFib, DVT on coumadin here with rectus sheath hematoma s/p fall Plan: - Hold AC, Monitor INR, H/H - strict I&O - IVF - Abx as per ID - Recommend repeat CT Abd/Pelvis to evaluate stable hematoma on 10/20/17 unless clinical status changes and rebleeding suspected. - No plans for any acute surgical intervention. We will follow peripherally. Further recs as per Dr. Christian Benoit PGY1 surgery pager: [phone]
[2017-10-15 16:41] LABS: RBC 2.1 10^6/uL (3.5-6.1); RED CELL DISTRIBUTION WIDTH 17.4 % (11.5-14.5)
[2017-10-15 16:45] LABS: HEMOGLOBIN 6.3 g/dL (12.0-16.0)
[2017-10-15] MEDS ORDERED: Sodium Chloride 0.9% 1,000 ML IV SCH (18:07)
--- NOTE | 2017-10-15 21:50 | CT ---
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 All CT scans at this facility use one or more dose reduction techniques, viz.: automated exposure control; ma/kV adjustment per patient size (including targeted exams where dose is matched to indication; i.e. head); or iterative reconstruction technique. Coronal and sagittal reformatted images were created and reviewed. COMPARISON: Prior CT abdomen and pelvis of 2017-10-13 FINDINGS: LIMITATIONS: Streak artifact from an arthroplasty device. LOWER THORAX: Bilateral pleural effusions, mildly increased in size. Adjacent consolidation in the lung bases bilaterally, mildly increased since the prior study, most likely representing compressive atelectasis versus pneumonia. ABDOMEN: LIVER: No acute abnormality of the liver identified. GALLBLADDER AND BILE DUCTS: High density material in the gallbladder, most likely representing vicariously excreted IV contrast. No CT evidence of acute cholecystitis. PANCREAS: Compared to the prior study, there are findings highly suspicious for development of moderate to severe acute pancreatitis. There is a pancreatic stranding and fluid, overall moderate in degree. The pancreatic head is enlarged and ill-defined. There is a new, small to moderate amount of fluid in the retroperitoneum bilaterally. Stable appearance of a small 1.5 cm well-defined cystic mass in the pancreatic tail, which could represent a pseudocyst versus a cystic pancreatic neoplasm. No evidence of a focal peripancreatic fluid collection on this unenhanced exam. SPLEEN: No acute abnormality of the spleen identified. ADRENALS: No acute abnormality of the adrenal glands identified. KIDNEYS AND URETERS: Excreted contrast is collecting systems of both kidneys, presumably from a recent study done one IV contrast. No evidence of hydroureteronephrosis. STOMACH AND BOWEL: Wall thickening of the proximal duodenum, most likely reactive in etiology, secondary to the pancreatitis. Colonic diverticulosis, with no evidence of acute diverticulitis. Otherwise, no significant abnormality of the bowel is identified. No evidence of bowel obstruction. APPENDIX: Normal appendix is not seen, however, there are no significant inflammatory changes visualized in the expected location of the appendix to suggest appendicitis. Recommend clinical correlation. PELVIS: BLADDER: No acute abnormality of the bladder identified. REPRODUCTIVE: No acute abnormality of the reproductive organs is seen. No acute abnormality of the uterus identified. No evidence of large adnexal masses. ABDOMEN and PELVIS: INTRAPERITONEAL SPACE: Again seen in the anterior pelvis there is a large, heterogeneous masslike area with a lobulated shape, measuring up to 18 cm in size. This is highly suspicious for a large pelvic hematoma. Compared to the prior exam, it appears higher in density, however, it is stable to mildly decreased in size Small to moderate amount of abdominal free fluid again seen, not significantly changed in amount. No evidence of free air. BONES/JOINTS: Arthroplasty device in the left hip. There is stable appearance of a left hip dislocation. The acetabular component of the arthroplasty device is dislocated laterally relative to the acetabulum, along with the left proximal femur and femoral component of the arthroplasty device. SOFT TISSUES: Diffuse subcutaneous edema/anasarca, mildly worsened compared to the prior study. VASCULATURE: Metallic stent again noted in the descending thoracic aorta. There is stable aneurysmal dilatation of the descending thoracic aorta, which measures up to 5.2 cm in diameter, and also of the infrarenal abdominal aorta, which measures up to 3.6 cm in diameter. No evidence of periaortic hemorrhage/aneurysm rupture. LYMPH NODES: No evidence of diffuse lymphadenopathy. TUBES, LINES AND DEVICES: Bladder is decompressed by a catheter. IMPRESSION: - Compared to a CT done 2 days prior, there are findings highly suspicious for development of moderate to severe acute pancreatitis. - Large 18 cm pelvic hematoma again seen. Although this appears more dense than on the prior CT, it has not significantly enlarged in size to suggest worsening hemorrhage. - Small bilateral pleural effusions, mildly increased in size. - Mild worsening of anasarca. - Otherwise, no significant change is seen. - Abdominal free fluid. - Stable appearance of a dislocated left hip arthroplasty device. - See above for remaining findings.
[2017-10-15] MEDS: Azithromycin 500MG/NS 250ml 500 MG/250 ML BAG IVPB SCH (23:21)
[2017-10-16 01:17] LABS: MEAN CELL VOLUME 89.3 fl (80.0-105.0); MEAN CORPUSCULAR HEMOGLOBIN 29.8 pg (25.0-35.0); MEAN CORPUSCULAR HGB CONC 33.3 g/dl (31.0-37.0); RBC 3.19 10^6/uL (3.5-6.1); RED CELL DISTRIBUTION WIDTH 17.3 % (11.5-14.5); WHITE BLOOD COUNT 5.6 10^3/ul (4.5-11.0)
[2017-10-16 01:36] LABS: BASO # 0.01 K/mm3 (0.0-2.0); BASO % 0.2 % (0.0-3.0); EOS # 0.1 (0.0-0.7); EOS % 1.4 % (1.5-5.0); GRAN # 3.69 (1.4-6.5); GRAN % 66.1 % (50.0-68.0); LYMPH # 1.2 (1.2-3.4); LYMPH % 21.5 % (22.0-35.0); MONO # 0.6 (0.1-0.6); MONO % 10.8 % (1.0-6.0)
[2017-10-16 01:37] LABS: HEMOGLOBIN 9.5 g/dL (12.0-16.0)
--- NOTE | 2017-10-16 04:42 | CON ---
DATE: 10/15/2017 CONSULTATION SERVICE: Cardiology. CONSULTING PHYSICIAN: Dr. Anushka Wilkerson. REASON FOR CONSULTATION: History of paroxysmal atrial fibrillation, on Coumadin; admitted with severe anemia; rectal bleed; and altered mental status. BRIEF CLINICAL HISTORY: This is a 76-year-old female with history of paroxysmal atrial fibrillation, urinary tract infection, anemia, seizure, CHF, GI bleed, gastroenteritis, cholecystitis, recently discharged and sent home, found by home health with altered mental status, lethargic and appears pale. On arriving to the ER, hemoglobin was found to be 5.2 and abdomen was tender, so CAT scan was done and found to be rectus sheath hematoma. The patient is unable to give any detailed history. History of endovascular graft, descending thoracic aneurysm in the past. The patient is unable to give any history, very weak, lethargic, lying, but denies any chest pain, denies any shortness of breath, unable to give any detailed history. PAST MEDICAL HISTORY: Significant for coronary artery disease, status post cardiac catheterization on 11/05/2013, found to be nonobstructive coronary artery disease; mild LAD disease with myocardial bridge. The patient has history of endovascular stent inserted for type B aortic dissection, history of mitral regurgitation, history of trace aortic regurgitation, history of trace mitral regurgitation, history of trace tricuspid regurgitation, RV systolic pressure of 37, history of anemia, history of diastolic dysfunction; history of GI bleed, GI workup was negative in the past; history of stroke with left-sided weakness and contracture of upper extremity; history of abdominal aortic aneurysm as well; history of multiple CVAs; history of last CAT scan on 04/18/2016 shows endovascular leak and medical treatment recommended. SOCIAL HISTORY: No history of alcohol abuse in the chart. ALLERGIES: NO KNOWN DRUG ALLERGIES. CURRENT MEDICATIONS: The patient is taking Coumadin 4 mg, potassium, metoprolol, magnesium, losartan, gabapentin, furosemide, Colace, and trazodone. Last echo in the computer on 05/06/2015 shows ejection fraction 65%, trace MR, trace TR, RV systolic pressure of 27. History of repeat echocardiography done on 08/13/2016, read by Dr. Matta that shows mild pulmonary hypertension, RV systolic pressure of 45, LVEF 65%. EKG today showed normal sinus, ST-T changes noted. REVIEW OF SYSTEMS: As per HPI. PHYSICAL EXAMINATION: VITAL SIGNS: As follows; temperature afebrile, heart rate 86, blood pressure 149/80. HEENT: PERRLA intact. NECK: Supple. No carotid bruit or thyromegaly. CHEST: Clear to auscultation. HEART: S1 and S2 regular. ABDOMEN: Soft. EXTREMITIES: Clubbing and cyanosis negative. LABORATORY DATA: Blood workup as follows: WBC is 5, hemoglobin 6.3, hematocrit 19, and platelet count 73,000. Chemistry shows sodium 140, potassium 3.9, chloride 112, carbon dioxide 23, anion gap of 12, BUN of 14, and creatinine 0.7. IMPRESSION: Severe anemia, rectus sheath hematoma, history of paroxysmal atrial fibrillation, history of endovascular leak, history of gastrointestinal bleed in the past, history of abdominal aortic aneurysm as well as history of type B aortic dissection with more extensions in the thoracic aneurysm, so patient had endovascular leak and status post endovascular stent was done; history of nonobstructive coronary artery disease; history of cardiac catheterization, and paroxysmal atrial fibrillation, on Coumadin; history of severe peripheral arterial disease; history of hip fracture; history of seizure disorder; history of multiple cerebrovascular accidents with left-sided hemiparesis with contracture of upper extremities; renal insufficiency. Last echocardiogram showed preserved LV function. Rectus sheath hematoma; protein-calorie malnutrition, which is present on admission moderate to severe; severe anemia; history of cardiac catheterization, nonobstructive coronary artery disease, essentially normal coronaries; history of multiple cerebrovascular accidents; history of last catheterization on 11/05/2013, last echo showed preserved left ventricular function; history of paroxysmal atrial fibrillation; trace to mild mitral regurgitation, mild tricuspid regurgitation; history of type B aortic dissection; history of abdominal aortic aneurysm; history of endovascular stent/graft; contracture of upper extremities. PLAN: Since the patient is in normal sinus, severe anemia, rectus sheath hematoma, we will hold Coumadin, keep hemoglobin around 10. EKG shows normal changes, add beta-poli as tolerated, keep heart rate around 60 to 70 and blood pressure above 110. We will follow with you. We will cut down the fluid to 50 mL to prevent to growing a pulmonary edema. The patient has protein-calorie malnutrition as well. Thank you Dr. Forte, for providing us the opportunity in taking care of the patient, Emilia Marcos. Anushka Wilkerson MD [facility] # [id number]
[2017-10-16 06:32] LABS: HEMOGLOBIN 10.1 g/dL (12.0-16.0); MEAN CELL VOLUME 89.6 fl (80.0-105.0); MEAN CORPUSCULAR HGB CONC 33.4 g/dl (31.0-37.0); MEAN PLATELET VOLUME 9.4 fl (7.0-11.0); RBC 3.37 10^6/uL (3.5-6.1); RED CELL DISTRIBUTION WIDTH 17.3 % (11.5-14.5); WHITE BLOOD COUNT 6.5 10^3/ul (4.5-11.0)
[2017-10-16 06:43] LABS: LDL CHOLESTEROL 70 mg/dL (0-129)
[2017-10-16 06:57] LABS: INR 1.07 (0.93-1.08); PROTHROMBIN TIME 12.3 SECONDS (9.4-12.5)
[2017-10-16 07:21] LABS: BLOOD UREA NITROGEN 11 mg/dL (7-21); CALCIUM 8.1 mg/dL (8.4-10.5); GFR AFRICAN-AMERICAN > 60; GFR NON-AFRICAN AMERICAN > 60; HDL CHOLESTEROL 29 mg/dL (29-60); MAGNESIUM 2.3 mg/dL (1.7-2.2)
--- NOTE | 2017-10-16 07:47 | CON ---
DATE: 10/15/2017 REASON FOR CONSULT: Chronic lung disease, admitted with rectal bleed with hemorrhagic shock. HISTORY OF PRESENT ILLNESS: This is a 76 years old female who is well known to me, just recently discharged from the TICU after treatment, has a history of cardiomyopathy, atrial fibrillation, chronic lung disease, history of CVA, cirrhotic liver, hepatitis C, ascites. There is no hemoptysis, no hematemesis. No hematuria reported. PAST MEDICAL HISTORY: As per history of present illness. ALLERGIES: TO PENICILLIN. SOCIAL HISTORY: No any active smoking or alcohol use. FAMILY HISTORY: No significant cardiopulmonary disease reported. MEDICATIONS: She is on metoprolol tartrate 25 mg twice a day, meropenem 1 g IV q.12 hour, Pepcid 20 mg twice a day, IV fluid normal saline 50 mL/hr, Zithromax 500 mg daily. REVIEW OF SYSTEMS: No headache, no rhinitis. Has some cough and short of breath. No nausea, no vomiting, no diarrhea. No leg pain or leg swelling. OBJECTIVE: GENERAL: In no acute distress. VITAL SIGNS: Temperature is 98, heart rate 76, respiratory rate is 20, blood pressure 156/75, pulse ox 100% on nasal cannula. HEENT: Small oral cavity. Crowded airway. NECK: Supple. No JVD. LUNGS: Has a fair airflow with few rhonchi. HEART: S1 and S2. ABDOMEN: Soft, nontender. No organomegaly. EXTREMITIES: There is no edema. NEUROLOGIC: Awake and alert. Follows simple commands. LABORATORY DATA: On admission, her hemoglobin was 5.2, today's hemoglobin 6.3, hematocrit 16.2, WBC 5.0, platelet is 73. INR 1.12. On admission, INR was 3.3. ABG yesterday has pH 7.39, pCO2 of 42, O2 was 27. Sodium 143, potassium 3.9, chloride 112, bicarbonate 23, BUN 14, creatinine 0.7, glucose 80, calcium is 7.8, phosphorus 2.7, magnesium 2.4, AST 83, ALT 54, alk phos is 64. Albumin is 2.8. Microbiology, blood culture has been negative. Had a CT of the abdomen and pelvis done which shows highly suspicious development of moderate to severe acute pancreatitis, large 18 cm pelvic hematoma seen. Small bilateral pleural effusion, mild increase in size. Has a dislocated left hip arthroplasty, pelvic hematoma bleed with drop of hemoglobin requiring transfusion, chronic obstructive lung disease, sepsis, history of paroxysmal atrial fibrillation in the past, hepatitis C, has a history of aortic aneurysm, history of old CVA, hip dislocation. Agree with the present management. Continue follow H and H, off anticoagulation, also high risk for thromboembolic disease. We will add inhaled bronchodilator. Keep head at 45 degrees. Has a surgical followup. Thank you, and we will follow with you. Anushka Barreto MD
[2017-10-16] MEDS ORDERED: oxyCODONE 5 mg Immediate Release Tab PO PRN (07:56)
[2017-10-16] MEDS: Levalbuterol 0.63 MG/3 ML Inhal Soln UD IH SCH ×3 (08:29→20:30)
[2017-10-16] MEDS: levETIRAcetam 500 mg/5ml UD cups PO SCH ×2 (09:24→18:07)
[2017-10-16] MEDS: Nystatin 100,000 Units/gm Topical Pow(15 gm) TOP SCH ×2 (09:27→23:39)
--- NOTE | 2017-10-16 10:09 | PN ---
DATE: 10/15/2017 SUBJECTIVE: The patient is stable, comfortable, more alert and awake, in no distress. PHYSICAL EXAMINATION: VITAL SIGNS: The patient's temperature is 98.9, heart rate 80, blood pressure 154/75, respirations 16. HEENT: Head and neck exam, normal. NECK: There is some mild stiffness in the neck due to arthritis. No JVD. CHEST: Clear. Diminished breath sounds. CARDIAC: First sound and second sound are normal. ABDOMEN: Soft. There is tenderness, more on the left. EXTREMITIES: Mild edema in the foot area. NEUROLOGIC: The patient does not move her upper or lower extremities. LABORATORY STUDIES: On 10/15/2017, she had white count 5.6, hemoglobin 7.4, hematocrit 22.2, platelets are 83. On repeat labs, her hemoglobin went down to 6.3, hematocrit 19.1. She is off any anticoagulation due to her chronic atrial fibrillation and we will continue monitor her condition. IMPRESSION: 1. Abdominal wall hematoma, large. Hemoglobin is low. We will continue monitor hemoglobin and hematocrit. We will repeat transfusions and follow up clinically. 2. Fever. Possible pneumonia. Continue current antibiotics as per Infectious Disease. 3. She has a history of seizure. Continue Keppra. 4. Also blood pressure elevation, we will resume metoprolol 25 b.i.d. and maybe we should increase it; however, monitor the blood pressure more closely. We will continue current therapy. We will follow up clinically. 5. The patient also has chronic hepatitis C with thrombocytopenia, stable. Platelets run low usually. 6. She does have a history of cerebrovascular accident. She is off any anticoagulant now. 7. Carotid stenosis. 8. Thyroid nodule. Need a biopsy, however, more acute problems. We will hold off on later as outpatient. Continue current therapy. Follow up clinically. 9. No surgery at this time for now. Albin Forte MD
--- NOTE | 2017-10-16 10:38 | CP.PCM.PN ---
Subjective - Date & Time of Evaluation Date of Evaluation: 10/16/17 Time of Evaluation: 09:30 - Subjective Subjective: Comfortable in bed, no fevers overnight. Objective - Vital Signs/Intake and Output Vital Signs (last 24 hours): Temp Pulse Resp BP Pulse Ox 99 F 109 H 23 193/112 H 94 L 10/16/17 04:00 10/16/17 08:30 10/16/17 06:08 10/16/17 08:30 10/16/17 06:08 Intake and Output: 10/16/17 10/16/17 06:59 18:59 Intake Total 2550 Output Total 300 Balance 2250 - Medications Medications: Current Medications Alprazolam (Xanax) 0.25 mg PO BID PRN; Protocol PRN Reason: Anxiety Stop: 10/23/17 10:01 Amlodipine Besylate (Norvasc) 5 mg PO DAILY [facility] Last Admin: 10/16/17 09:22 Dose: Not Given Famotidine (Pepcid) 20 mg IVP BID [facility] Last Admin: 10/16/17 09:25 Dose: 20 mg Meropenem 1 gm/ Sodium (Chloride) 50 mls @ 100 mls/hr IVPB Q12 JEAN CLAUDE PRN Reason: Protocol Last Admin: 10/16/17 09:27 Dose: 100 mls/hr Sodium Chloride (Sodium Chloride 0.9%) 1,000 mls @ 50 mls/hr IV .Q20H [facility] Last Admin: 10/15/17 19:43 Dose: 50 mls/hr Levalbuterol HCl (Xopenex) 0.63 mg IH TIDRESP [facility] Last Admin: 10/16/17 08:29 Dose: 0.63 mg Levetiracetam (Keppra) 500 mg PO BID [facility] Last Admin: 10/16/17 09:24 Dose: 500 mg Metoprolol Tartrate (Lopressor) 25 mg PO BID [facility] Last Admin: 10/16/17 09:22 Dose: Not Given Nystatin (Nystop Topical Powder) 0 gm TOP Q12 [facility] Last Admin: 10/16/17 09:27 Dose: 1 gm Oxycodone HCl (Oxycodone Immediate Release Tab) 5 mg PO Q6H PRN PRN Reason: Pain, moderate (4-7) Pantoprazole Sodium (Protonix Inj) 40 mg IVP DAILY [facility] - Labs Labs: 10/16/17 06:00 10/16/17 06:00 PT 12.3 SECONDS (9.4-12.5) 10/16/17 06:00 INR 1.07 (0.93-1.08) 10/16/17 06:00 APTT 42.2 Seconds (25.1-36.5) H 10/13/17 15:14 - Constitutional Appears: Chronically Ill - Head Exam Head Exam: NORMAL INSPECTION - Neck Exam Neck Exam: absent: Meningismus - Respiratory Exam Respiratory Exam: Decreased Breath Sounds - Cardiovascular Exam Cardiovascular Exam: +S1, +S2 - GI/Abdominal Exam GI & Abdominal Exam: Soft. absent: Tenderness Additional comments: firmness over the left lower quadrant area without tenderness Assessment and Plan - Assessment and Plan (Free Text) Plan: Assessment Systemic Inflammatory response syndrome, probably due to acute drop in Hgb from left rectus sheath hematoma, so far no evidence of sepsis identified but with new finding of probable severe acute pancreatitis Stage 4 decubitus ulcer history of right lower lobe healthcare-associated pneumonia history of ESBL E. coli and Enterococcus UTI history of ESBL E. coli UTI atrial fibrillation cerebrovascular accident history of aortic dissection seizure disorder history of thrombocytopenia HTN hypercholesterolemia chronic pain syndrome history of decubitus ulcers chronic active hepatitis C Plan continue Meropenem day 3 pending final blood, urine cx; reviewed repeat CT A/P will trend WBC count and monitor clinically (WBC count has normalized today)
--- NOTE | 2017-10-16 13:17 | CP.CCUPN ---
<Yves Fournier - Last Filed: 10/16/17 13:30> CCU Subjective - Physician Review Subjective (Free Text): Critical Care Progress note Patient seen and examined at bedside this AM. Transfused 2units of PRBC overnight. Repeat AM Hg 10.1. Patient awake and responds yes or no to questions. follows simple verbal commands. symptoms have improved relative to baseline. No new complaints at this time. Denies fevers, chills, chest pain, shortness of breath, nausea, vomiting, diarrhea, constipation, and urinary symptoms. CCU Objective - Vital Signs / Intake & Output Intake and Output (Last 8hrs): Intake & Output 10/15/17 10/16/17 10/16/17 22:59 06:59 14:59 Intake Total 2600 1850 Output Total 350 300 Balance 2250 1550 Intake: IV 1300 1150 External Jugular 350 R EJ 1300 Right Upper arm 800 Oral 600 Blood Product 650 650 Red Blood Cells Cpd As1 325 Lr Unit [id number] Red Blood Cells Cpd As1 325 0 Lr Unit [id number] Other 50 50 Red Blood Cells Cpd As1 50 Lr Unit [id number] Red Blood Cells Cpd As1 50 Lr Unit [id number] Output: Urine 350 300 2WF 350 300 Other: # Bowel Movements 1 - Physical Exam Head: Positive for: Atraumatic, Normocephalic Pupils: Positive for: PERRL Extroacular Muscles: Positive for: Other (Patient opens eyes to painful stimuli ) Conjunctiva: Positive for: Other (pale ) Mouth: Positive for: Moist Mucous Membranes Neck: Positive for: Normal Range of Motion Respiratory/Chest: Positive for: Clear to Auscultation, Good Air Exchange. Negative for: Respiratory Distress, Accessory Muscle Use Cardiovascular: Positive for: Regular Rate and Rhythm, Normal S1, S2, Tachycardic. Negative for: Murmurs Abdomen: Positive for: Tenderness, Normal Bowel Sounds, Guarding (voluntary guarding). Negative for: Distention, Peritoneal Signs Back: Positive for: Normal Inspection Upper Extremity: Positive for: Normal Inspection. Negative for: Cyanosis, Edema Lower Extremity: Positive for: Normal Inspection. Negative for: Edema Neurological: Positive for: GCS=15, CN II-XII Intact. Negative for: Speech Normal (nonverbal ) Skin: Positive for: Warm, Dry, Normal Color. Negative for: Rashes Psychiatric: Positive for: Alert - Medications Active Medications: Active Medications Generic Name Dose Route Start Last Admin Trade Name Freq PRN Reason Stop Dose Admin Alprazolam 0.25 mg 10/16/17 07:57 Xanax PO 10/23/17 10:01 BID PRN Anxiety Protocol Amlodipine Besylate 10 mg 10/16/17 10:38 Norvasc PO DAILY JEAN CLAUDE Clonidine HCl 0.1 mg 10/16/17 10:38 Catapres PO Q4H PRN hypertension Famotidine 20 mg 10/14/17 10:00 10/16/17 09:25 Pepcid IVP 20 mg BID JEAN CLAUDE Administration Meropenem 1 gm/ Sodium 50 mls @ 100 mls/hr 10/15/17 11:39 10/16/17 09:27 Chloride IVPB 100 mls/hr Q12 JEAN CLAUDE Administration Protocol Levalbuterol HCl 0.63 mg 10/16/17 08:00 10/16/17 13:10 Xopenex IH 0.63 mg TIDRESP JEAN CLAUDE Administration Levetiracetam 500 mg 10/16/17 10:00 10/16/17 09:24 Keppra PO 500 mg BID JEAN CLAUDE Administration Losartan Potassium 100 mg 10/16/17 10:45 Cozaar PO DAILY [facility] Metoprolol Tartrate 25 mg 10/16/17 10:00 10/16/17 09:22 Lopressor PO Not Given BID JEAN CLAUDE Nystatin 0 gm 10/15/17 10:00 10/16/17 09:27 Nystop Topical Powder TOP 1 gm Q12 JEAN CLAUDE Administration Oxycodone HCl 5 mg 10/16/17 07:56 Oxycodone Immediate Release Tab PO Q6H PRN Pain, moderate (4-7) Pantoprazole Sodium 40 mg 10/16/17 10:00 Protonix Inj IVP DAILY JEAN CLAUDE Potassium Phos/Sodium Phos 1 pkt 10/16/17 18:00 Neutra-Phos PO BID JEAN CLAUDE - Patient Studies Lab Studies: Microbiology Studies 10/13/17 21:27 MRSA Culture (Admit) - Final Naris MRSA NOT DETECTED 10/13/17 19:00 Urine Culture - Final Urine 50-100,000 CFU/ML. MULTIPLE SPECIES. SUGGEST REPEAT SPECIMEM. Lab Studies 01/04/18 01/04/18 01/04/18 Range/Units 06:00 06:00 06:00 WBC (4.5-11.0) 10^3/ul RBC (3.5-6.1) 10^6/uL Hgb (12.0-16.0) g/dL Hct (36.0-48.0) % MCV (80.0-105.0) fl MCH (25.0-35.0) pg MCHC (31.0-37.0) g/dl RDW (11.5-14.5) % Plt Count (120.0-450.0) 10^3/uL MPV (7.0-11.0) fl Gran % (50.0-68.0) % Lymph % (Auto) (22.0-35.0) % [place] % (Auto) (1.0-6.0) % Eos % (Auto) (1.5-5.0) % Baso % (Auto) (0.0-3.0) % Gran # (1.4-6.5) Lymph # (1.2-3.4) [place] # (0.1-0.6) Eos # (0.0-0.7) Baso # (0.0-2.0) K/mm3 PT 12.3 (9.4-12.5) SECONDS INR 1.07 (0.93-1.08) Sodium (132-148) mmol/L Potassium (3.6-5.0) mmol/L Chloride (98-107) mmol/L Carbon Dioxide (21-33) mmol/L Anion Gap (10-20) BUN (7-21) mg/dL Creatinine (0.7-1.2) mg/dl Est GFR ( Amer) Est GFR (Non-Af Amer) Random Glucose (70-110) mg/dL Hemoglobin A1c 5.2 (4.2-6.5) % Calcium (8.4-10.5) mg/dL Phosphorus (2.5-4.5) mg/dL Magnesium (1.7-2.2) mg/dL Triglycerides (35-160) mg/dL Cholesterol (130-200) mg/dL LDL Cholesterol Direct (0-129) mg/dL HDL Cholesterol (29-60) mg/dL Lipase (23-300) U/L TSH 3rd Generation 2.53 (0.46-4.68) mIU/mL 10/16/17 10/16/17 10/16/17 Range/Units 06:00 06:00 00:45 WBC 6.5 5.6 (4.5-11.0) 10^3/ul RBC 3.37 L 3.19 L (3.5-6.1) 10^6/uL Hgb 10.1 L 9.5 L D (12.0-16.0) g/dL Hct 30.2 L 28.5 L (36.0-48.0) % MCV 89.6 89.3 (80.0-105.0) fl MCH 30.0 29.8 (25.0-35.0) pg MCHC 33.4 33.3 (31.0-37.0) g/dl RDW 17.3 H 17.3 H (11.5-14.5) % Plt Count 83 L 71 L (120.0-450.0) 10^3/uL MPV 9.4 9.0 (7.0-11.0) fl Gran % 66.1 (50.0-68.0) % Lymph % (Auto) 21.5 L (22.0-35.0) % [place] % (Auto) 10.8 H (1.0-6.0) % Eos % (Auto) 1.4 L (1.5-5.0) % Baso % (Auto) 0.2 (0.0-3.0) % Gran # 3.69 (1.4-6.5) Lymph # 1.2 (1.2-3.4) Summit # 0.6 (0.1-0.6) Eos # 0.1 (0.0-0.7) Baso # 0.01 (0.0-2.0) K/mm3 PT (9.4-12.5) SECONDS INR (0.93-1.08) Sodium 144 (132-148) mmol/L Potassium 3.8 (3.6-5.0) mmol/L Chloride 114 H (98-107) mmol/L Carbon Dioxide 20 L (21-33) mmol/L Anion Gap 13 (10-20) BUN 11 (7-21) mg/dL Creatinine 0.5 L (0.7-1.2) mg/dl Est GFR ( Amer) > 60 Est GFR (Non-Af Amer) > 60 Random Glucose 89 (70-110) mg/dL Hemoglobin A1c (4.2-6.5) % Calcium 8.1 L (8.4-10.5) mg/dL Phosphorus 2.2 L (2.5-4.5) mg/dL Magnesium 2.3 H (1.7-2.2) mg/dL Triglycerides 116 (35-160) mg/dL Cholesterol 119 L (130-200) mg/dL LDL Cholesterol Direct 70 (0-129) mg/dL HDL Cholesterol 29 (29-60) mg/dL Lipase (23-300) U/L TSH 3rd Generation (0.46-4.68) mIU/mL 10/16/17 10/15/17 Range/Units 00:45 16:37 WBC 5.0 (4.5-11.0) 10^3/ul RBC 2.10 L (3.5-6.1) 10^6/uL Hgb 6.3 L* (12.0-16.0) g/dL Hct 19.1 L* (36.0-48.0) % MCV 91.0 (80.0-105.0) fl MCH 30.0 (25.0-35.0) pg MCHC 33.0 (31.0-37.0) g/dl RDW 17.4 H (11.5-14.5) % Plt Count 73 L (120.0-450.0) 10^3/uL MPV 9.0 (7.0-11.0) fl Gran % (50.0-68.0) % Lymph % (Auto) (22.0-35.0) % [place] % (Auto) (1.0-6.0) % Eos % (Auto) (1.5-5.0) % Baso % (Auto) (0.0-3.0) % Gran # (1.4-6.5) Lymph # (1.2-3.4) [place] # (0.1-0.6) Eos # (0.0-0.7) Baso # (0.0-2.0) K/mm3 PT (9.4-12.5) SECONDS INR (0.93-1.08) Sodium (132-148) mmol/L Potassium (3.6-5.0) mmol/L Chloride (98-107) mmol/L Carbon Dioxide (21-33) mmol/L Anion Gap (10-20) BUN (7-21) mg/dL Creatinine (0.7-1.2) mg/dl Est GFR ( Amer) Est GFR (Non-Af Amer) Random Glucose (70-110) mg/dL Hemoglobin A1c (4.2-6.5) % Calcium (8.4-10.5) mg/dL Phosphorus (2.5-4.5) mg/dL Magnesium (1.7-2.2) mg/dL Triglycerides (35-160) mg/dL Cholesterol (130-200) mg/dL LDL Cholesterol Direct (0-129) mg/dL HDL Cholesterol (29-60) mg/dL Lipase 98 (23-300) U/L TSH 3rd Generation (0.46-4.68) mIU/mL Laboratory Results - last 24 hr 10/15/17 10/16/17 10/16/17 16:37 00:45 00:45 WBC 5.0 5.6 RBC 2.10 L 3.19 L Hgb 6.3 L* 9.5 L D Hct 19.1 L* 28.5 L MCV 91.0 89.3 MCH 30.0 29.8 MCHC 33.0 33.3 RDW 17.4 H 17.3 H Plt Count 73 L 71 L MPV 9.0 9.0 Gran % 66.1 Lymph % (Auto) 21.5 L [place] % (Auto) 10.8 H Eos % (Auto) 1.4 L Baso % (Auto) 0.2 Gran # 3.69 Lymph # 1.2 Summit # 0.6 Eos # 0.1 Baso # 0.01 PT INR Sodium Potassium Chloride Carbon Dioxide Anion Gap BUN Creatinine Est GFR ( Amer) Est GFR (Non-Af Amer) Random Glucose Hemoglobin A1c Calcium Phosphorus Magnesium Triglycerides Cholesterol LDL Cholesterol Direct HDL Cholesterol Lipase 98 TSH 3rd Generation 10/16/17 10/16/17 10/16/17 06:00 06:00 06:00 WBC 6.5 RBC 3.37 L Hgb 10.1 L Hct 30.2 L MCV 89.6 MCH 30.0 MCHC 33.4 RDW 17.3 H Plt Count 83 L MPV 9.4 Gran % Lymph % (Auto) [place] % (Auto) Eos % (Auto) Baso % (Auto) Gran # Lymph # [place] # Eos # Baso # PT 12.3 INR 1.07 Sodium 144 Potassium 3.8 Chloride 114 H Carbon Dioxide 20 L Anion Gap 13 BUN 11 Creatinine 0.5 L Est GFR ( Amer) > 60 Est GFR (Non-Af Amer) > 60 Random Glucose 89 Hemoglobin A1c Calcium 8.1 L Phosphorus 2.2 L Magnesium 2.3 H Triglycerides 116 Cholesterol 119 L LDL Cholesterol Direct 70 HDL Cholesterol 29 Lipase TSH 3rd Generation 10/16/17 10/16/17 06:00 06:00 WBC RBC Hgb Hct MCV MCH MCHC RDW Plt Count MPV Gran % Lymph % (Auto) [place] % (Auto) Eos % (Auto) Baso % (Auto) Gran # Lymph # [place] # Eos # Baso # PT INR Sodium Potassium Chloride Carbon Dioxide Anion Gap BUN Creatinine Est GFR ( Amer) Est GFR (Non-Af Amer) Random Glucose Hemoglobin A1c 5.2 Calcium Phosphorus Magnesium Triglycerides Cholesterol LDL Cholesterol Direct HDL Cholesterol Lipase TSH 3rd Generation 2.53 Review of Systems - Review of Systems All systems: reviewed and no additional remarkable complaints except Critical Care Progress Note - Nutrition Nutrition: Nutrition Category Date Time Status Dysphagia/Modified Consistency Diet [DIET] Diets 10/15/17 Dinner Ordered Assessment/Plan - Assessment and Plan (Free Text) Assessment: 76F altered mental status, hemorrhagic shock, sepsis, anemia improving; rectus sheath hematoma, non expanding and stable; currently afebrile, HD stable, comfortable on 2LNC, NAD, mental status significantly improved, awake, alert, answering questions s/p 3u prbc, 2u FFP, VitK 10mg IV x 1 on 10/13/17, with appropriate response in INR, and CBC. 2units PRBC 10/15/17. Plan: Neuro: awake, alert, responds to verbal stimuli, answers questions, follows simple verbal commands Cardio: Monitor vitals Hydralazine 10mg PRN Pulm: keep SaO2 above 92% GI: modified diet rectus sheath hematoma stable on repeat CT Surgery following- no plans for surgical intervention prophylaxis Renal/Electrolytes BUN and Cr stable Endo: Keep patient euglycemec Heme: s/p 2u PRBC 10/15/17 Hg trended, reviewed and currently stable DVTppx ID: c/[email or web address] Merrem Abx c/s Aleah Patient Stable for transfer to Med/Surg discussed w/ Dr. Cat Fournier PGY1 <Wong Shelton B - Last Filed: 10/16/17 20:13> CCU Objective - Vital Signs / Intake & Output Vital Signs (Last 4 hours): Vital Signs Pulse BP 10/16/17 18:09 113 H 156/81 H 10/16/17 18:07 113 H 156/81 H Intake and Output (Last 8hrs): Intake & Output 10/16/17 10/16/17 10/16/17 06:59 14:59 22:59 Intake Total 1850 Output Total 300 Balance 1550 Intake: IV 1150 External Jugular 350 Right Upper arm 800 Blood Product 650 Red Blood Cells Cpd As1 0 Lr Unit [id number] Other 50 Red Blood Cells Cpd As1 50 Lr Unit [id number] Output: Urine 300 2WF 300 Other: # Bowel Movements 1 - Medications Active Medications: Active Medications Generic Name Dose Route Start Last Admin Trade Name Freq PRN Reason Stop Dose Admin Alprazolam 0.25 mg 10/16/17 07:57 Xanax PO 10/23/17 10:01 BID PRN Anxiety Protocol Amlodipine Besylate 10 mg 10/16/17 10:38 Norvasc PO DAILY JEAN CLAUDE Clonidine HCl 1 patch 10/16/17 16:45 10/16/17 18:09 Catapres-Tts3 0.3 Mg/24 Hr TD 1 patch Q7D@1000 JEAN CLAUDE Administration Famotidine 20 mg 10/14/17 10:00 10/16/17 18:07 Pepcid IVP 20 mg BID JEAN CLAUDE Administration Hydralazine HCl 10 mg 10/16/17 16:33 Apresoline PO QID PRN for sbp>160 Meropenem 1 gm/ Sodium 50 mls @ 100 mls/hr 10/15/17 11:39 10/16/17 09:27 Chloride IVPB 100 mls/hr Q12 JEAN CLAUDE Administration Protocol Levalbuterol HCl 0.63 mg 10/16/17 08:00 10/16/17 13:10 Xopenex IH 0.63 mg TIDRESP JEAN CLAUDE Administration Levetiracetam 500 mg 10/16/17 10:00 10/16/17 18:07 Keppra PO 500 mg BID JEAN CLAUDE Administration Losartan Potassium 100 mg 10/16/17 10:45 10/16/17 15:31 Cozaar PO 100 mg DAILY JEAN CLAUDE Administration Metoprolol Tartrate 25 mg 10/16/17 10:00 10/16/17 18:07 Lopressor PO 25 mg BID JEAN CLAUDE Administration Nystatin 0 gm 10/15/17 10:00 10/16/17 09:27 Nystop Topical Powder TOP 1 gm Q12 JEAN CLAUDE Administration Oxycodone HCl 5 mg 10/16/17 07:56 Oxycodone Immediate Release Tab PO Q6H PRN Pain, moderate (4-7) Pantoprazole Sodium 40 mg 10/16/17 10:00 10/16/17 18:10 Protonix Inj IVP Not Given DAILY JEAN CLAUDE Potassium Phos/Sodium Phos 1 pkt 10/16/17 18:00 10/16/17 18:07 Neutra-Phos PO 1 pkt BID JEAN CLAUDE Administration - Patient Studies Lab Studies: Lab Studies 10/16/17 10/16/17 10/16/17 Range/Units 06:00 06:00 06:00 WBC (4.5-11.0) 10^3/ul RBC (3.5-6.1) 10^6/uL Hgb (12.0-16.0) g/dL Hct (36.0-48.0) % MCV (80.0-105.0) fl MCH (25.0-35.0) pg MCHC (31.0-37.0) g/dl RDW (11.5-14.5) % Plt Count (120.0-450.0) 10^3/uL MPV (7.0-11.0) fl Gran % (50.0-68.0) % Lymph % (Auto) (22.0-35.0) % [place] % (Auto) (1.0-6.0) % Eos % (Auto) (1.5-5.0) % Baso % (Auto) (0.0-3.0) % Gran # (1.4-6.5) Lymph # (1.2-3.4) [place] # (0.1-0.6) Eos # (0.0-0.7) Baso # (0.0-2.0) K/mm3 PT 12.3 (9.4-12.5) SECONDS INR 1.07 (0.93-1.08) Sodium (132-148) mmol/L Potassium (3.6-5.0) mmol/L Chloride (98-107) mmol/L Carbon Dioxide (21-33) mmol/L Anion Gap (10-20) BUN (7-21) mg/dL Creatinine (0.7-1.2) mg/dl Est GFR ( Amer) Est GFR (Non-Af Amer) Random Glucose (70-110) mg/dL Hemoglobin A1c 5.2 (4.2-6.5) % Calcium (8.4-10.5) mg/dL Phosphorus (2.5-4.5) mg/dL Magnesium (1.7-2.2) mg/dL Triglycerides (35-160) mg/dL Cholesterol (130-200) mg/dL LDL Cholesterol Direct (0-129) mg/dL HDL Cholesterol (29-60) mg/dL Lipase (23-300) U/L TSH 3rd Generation 2.53 (0.46-4.68) mIU/mL 10/16/17 10/16/17 10/16/17 Range/Units 06:00 06:00 00:45 WBC 6.5 5.6 (4.5-11.0) 10^3/ul RBC 3.37 L 3.19 L (3.5-6.1) 10^6/uL Hgb 10.1 L 9.5 L D (12.0-16.0) g/dL Hct 30.2 L 28.5 L (36.0-48.0) % MCV 89.6 89.3 (80.0-105.0) fl MCH 30.0 29.8 (25.0-35.0) pg MCHC 33.4 33.3 (31.0-37.0) g/dl RDW 17.3 H 17.3 H (11.5-14.5) % Plt Count 83 L 71 L (120.0-450.0) 10^3/uL MPV 9.4 9.0 (7.0-11.0) fl Gran % 66.1 (50.0-68.0) % Lymph % (Auto) 21.5 L (22.0-35.0) % [place] % (Auto) 10.8 H (1.0-6.0) % Eos % (Auto) 1.4 L (1.5-5.0) % Baso % (Auto) 0.2 (0.0-3.0) % Gran # 3.69 (1.4-6.5) Lymph # 1.2 (1.2-3.4) [place] # 0.6 (0.1-0.6) Eos # 0.1 (0.0-0.7) Baso # 0.01 (0.0-2.0) K/mm3 PT (9.4-12.5) SECONDS INR (0.93-1.08) Sodium 144 (132-148) mmol/L Potassium 3.8 (3.6-5.0) mmol/L Chloride 114 H (98-107) mmol/L Carbon Dioxide 20 L (21-33) mmol/L Anion Gap 13 (10-20) BUN 11 (7-21) mg/dL Creatinine 0.5 L (0.7-1.2) mg/dl Est GFR ( Amer) > 60 Est GFR (Non-Af Amer) > 60 Random Glucose 89 (70-110) mg/dL Hemoglobin A1c (4.2-6.5) % Calcium 8.1 L (8.4-10.5) mg/dL Phosphorus 2.2 L (2.5-4.5) mg/dL Magnesium 2.3 H (1.7-2.2) mg/dL Triglycerides 116 (35-160) mg/dL Cholesterol 119 L (130-200) mg/dL LDL Cholesterol Direct 70 (0-129) mg/dL HDL Cholesterol 29 (29-60) mg/dL Lipase (23-300) U/L TSH 3rd Generation (0.46-4.68) mIU/mL 10/16/17 Range/Units 00:45 WBC (4.5-11.0) 10^3/ul RBC (3.5-6.1) 10^6/uL Hgb (12.0-16.0) g/dL Hct (36.0-48.0) % MCV (80.0-105.0) fl MCH (25.0-35.0) pg MCHC (31.0-37.0) g/dl RDW (11.5-14.5) % Plt Count (120.0-450.0) 10^3/uL MPV (7.0-11.0) fl Gran % (50.0-68.0) % Lymph % (Auto) (22.0-35.0) % [place] % (Auto) (1.0-6.0) % Eos % (Auto) (1.5-5.0) % Baso % (Auto) (0.0-3.0) % Gran # (1.4-6.5) Lymph # (1.2-3.4) [place] # (0.1-0.6) Eos # (0.0-0.7) Baso # (0.0-2.0) K/mm3 PT (9.4-12.5) SECONDS INR (0.93-1.08) Sodium (132-148) mmol/L Potassium (3.6-5.0) mmol/L Chloride (98-107) mmol/L Carbon Dioxide (21-33) mmol/L Anion Gap (10-20) BUN (7-21) mg/dL Creatinine (0.7-1.2) mg/dl Est GFR ( Amer) Est GFR (Non-Af Amer) Random Glucose (70-110) mg/dL Hemoglobin A1c (4.2-6.5) % Calcium (8.4-10.5) mg/dL Phosphorus (2.5-4.5) mg/dL Magnesium (1.7-2.2) mg/dL Triglycerides (35-160) mg/dL Cholesterol (130-200) mg/dL LDL Cholesterol Direct (0-129) mg/dL HDL Cholesterol (29-60) mg/dL Lipase 98 (23-300) U/L TSH 3rd Generation (0.46-4.68) mIU/mL Laboratory Results - last 24 hr 10/16/17 10/16/17 10/16/17 00:45 00:45 06:00 WBC 5.6 6.5 RBC 3.19 L 3.37 L Hgb 9.5 L D 10.1 L Hct 28.5 L 30.2 L MCV 89.3 89.6 MCH 29.8 30.0 MCHC 33.3 33.4 RDW 17.3 H 17.3 H Plt Count 71 L 83 L MPV 9.0 9.4 Gran % 66.1 Lymph % (Auto) 21.5 L [place] % (Auto) 10.8 H Eos % (Auto) 1.4 L Baso % (Auto) 0.2 Gran # 3.69 Lymph # 1.2 [place] # 0.6 Eos # 0.1 Baso # 0.01 PT INR Sodium Potassium Chloride Carbon Dioxide Anion Gap BUN Creatinine Est GFR ( Amer) Est GFR (Non-Af Amer) Random Glucose Hemoglobin A1c Calcium Phosphorus Magnesium Triglycerides Cholesterol LDL Cholesterol Direct HDL Cholesterol Lipase 98 TSH 3rd Generation 10/16/17 10/16/17 10/16/17 06:00 06:00 06:00 WBC RBC Hgb Hct MCV MCH MCHC RDW Plt Count MPV Gran % Lymph % (Auto) [place] % (Auto) Eos % (Auto) Baso % (Auto) Gran # Lymph # [place] # Eos # Baso # PT 12.3 INR 1.07 Sodium 144 Potassium 3.8 Chloride 114 H Carbon Dioxide 20 L Anion Gap 13 BUN 11 Creatinine 0.5 L Est GFR ( Amer) > 60 Est GFR (Non-Af Amer) > 60 Random Glucose 89 Hemoglobin A1c 5.2 Calcium 8.1 L Phosphorus 2.2 L Magnesium 2.3 H Triglycerides 116 Cholesterol 119 L LDL Cholesterol Direct 70 HDL Cholesterol 29 Lipase TSH 3rd Generation 10/16/17 06:00 WBC RBC Hgb Hct MCV MCH MCHC RDW Plt Count MPV Gran % Lymph % (Auto) [place] % (Auto) Eos % (Auto) Baso % (Auto) Gran # Lymph # [place] # Eos # Baso # PT INR Sodium Potassium Chloride Carbon Dioxide Anion Gap BUN Creatinine Est GFR ( Amer) Est GFR (Non-Af Amer) Random Glucose Hemoglobin A1c Calcium Phosphorus Magnesium Triglycerides Cholesterol LDL Cholesterol Direct HDL Cholesterol Lipase TSH 3rd Generation 2.53 Critical Care Progress Note - Nutrition Nutrition: Nutrition Category Date Time Status Dysphagia/Modified Consistency Diet [DIET] Diets 10/15/17 Dinner Ordered Attending/Attestation - Attestation I have personally seen and examined this patient.: Yes I have fully participated in the care of the patient.: Yes I have reviewed all pertinent clinical information: Yes Notes (Text): 10/16/17 20:12 76 yo female initially admitted to ICU with hemorrhagic shock due to rectal sheath hematoma-->which was contained. Now Hb stable. Hemodyanmically relatively stable, no signs of bleeding. Ok to downgrade to medsurg ccm time 40 min
--- NOTE | 2017-10-16 13:35 | PN ---
DATE: SUBJECTIVE: The patient is currently seen in ICU bed one. She appears entirely comfortable. IV fluids have been decreased. She remains on empiric antibiotic therapy for a possible polymicrobial UTI and possible pneumonia. Her hemoglobin has stabilized. She is status post a very large right rectus sheath hematoma likely secondary to fall. MEDICATIONS: Medication list reviewed. The patient is currently on Keppra, Lopressor, meropenem, Norvasc, Nystatin, oxycodone p.r.n., Pepcid, Protonix, normal saline at 50 mL an hour, Xanax p.r.n., and Xopenex. OBJECTIVE INTAKE/OUTPUT: Intake of 4450 and output of 650 mL. VITAL SIGNS: Blood pressure is ranging from 170 to 193 systolic with diastolics ranging from 89 to 112. Heart rate of 109 and temperature of 99. Respiratory rate is 23. HEENT: Exam shows her be normocephalic and atraumatic. Conjunctivae are pale. Sclerae nonicteric. NECK: Supple. No neck vein distention. CHEST: Clear to auscultation and percussion. No rales, rhonchi or wheezing. CARDIOVASCULAR: Shows an irregular rate and rhythm with a soft systolic murmur at left lower sternal border. GASTROINTESTINAL: Abdomen is soft. Bowel sounds are normal. No rebound and no guarding. No tenderness or palpation on right lower quadrant. EXTREMITIES: Positive upper extremity ecchymosis. No lower extremity cyanosis, clubbing or edema. LABORATORY DATA AND IMAGING STUDIES: CBC: White blood cell count today of 6.5, hemoglobin is stable at 10.1, an d platelet count is 83,000. Coags are normal. Chemistries: Sodium of 144, potassium of 3.8, and chloride of 114 with a CO2 of 20. BUN of 11 with a creatinine of 0.5. Calcium of 8.1 and albumin level is 2.8. Calcium corrects to normal. Phosphorus level is up to 2.2. Magnesium level is mildly elevated at 2.3. Microbiology; polymicrobial UTI suspect. Blood cultures are negative at 48 hours. ASSESSMENT: 1. Status post mild elevation of blood urea nitrogen and creatinine. This was in the setting of hypotension, severe anemia secondary to her intra-abdominal bleed. Hemodynamics have stabilized, and her hemoglobin has stabilized. Renal perfusion has improved and the BUN and creatinine are back to baseline levels with a BUN of 11 and the creatinine of 0.5. 2. Large right rectus sheath hematoma. This is responsible for her hemoglobin drop. The patient has been transfused 5 units of packed red blood cells and 6 units of fresh frozen plasma. It appears that she is stabilized. 3. Possible sepsis, possible pneumonia and possible urinary tract infection. The patient will continue present empiric antibiotic therapy. 4. History of atrial fibrillation. She was on chronic anticoagulation. This is currently on hold because of her intra-abdominal bleed. 5. Past history of cerebrovascular accident. 6. History of peripheral vascular disease status post thoracic aortic aneurysm with endovascular graft repair. 7. Past history of hepatitis C. 8. History of seizure disorder, on Keppra therapy. 9. History of chronic stable thrombocytopenia. 10. History of hypertension. With correction of her severe anemia, her blood pressure has increased. I will place the patient back on all of her outpatient blood pressure medications and perhaps titrate doses higher to obtain optimal blood pressure control. PLAN 1. Continue to monitor the patient closely, it appears that her hemoglobin is stabilized. 2. From my standpoint, IV fluids may be discontinued. The patient may be off IV fluids as long as she is tolerating p.o. fluid intake, no reason for IV fluid hydration. 3. In all likelihood, she will not require any further transfusions. 4. Adjustment to be made in her blood pressure medications. 5. We will supplement phosphorus in light of her hypophosphatemia. Jaycob Cummins MD JAMES
--- NOTE | 2017-10-16 15:57 | PN ---
DATE: 10/16/2017 PULMONARY PROGRESS NOTE REFERRING PHYSICIAN: Albin Forte MD SUBJECTIVE: The patient is lying on the bed and head at 45 degrees. Awake and alert. Mild cough. No shortness of breath. No nausea. No vomiting. No diarrhea. Denied any hematochezia or melena. No leg pain or leg swelling. OBJECTIVE: GENERAL: In no acute distress. VITAL SIGNS: Temperature is 98, heart is 109, respiratory rate 22, blood pressure 193/112, pulse 74% nasal cannula. HEENT: Moist mucous membranes. No ulcer or thrush noted. NECK: Supple. No JVD. LUNGS: Have fair airflow with rhonchi. HEART: S1 and S2. Tachycardic. ABDOMEN: Soft and nontender. No organomegaly. EXTREMITIES: No edema. NEUROLOGIC: Awake and alert, follow simple commands. MEDICATIONS: She is on Catapres 0.1 mg q.4 hours p.r.n., Cozaar 100 mg restarted, Keppra 500 mg twice a day, metoprolol tartrate 25 mg started, meropenem 1 g q.12 hours, Neutra-Phos 1 pack twice a day, Norvasc 10 mg daily, oxycodone immediate release 5 mg q.6 hours p.r.n., Pepcid 20 mg twice a day, Protonix 40 mg daily, Xanax 0.25 mg twice a day p.r.n. and Xopenex 0.63 three times a day. LABORATORY DATA: Review, shows hemoglobin 10.1, hematocrit 30.2, WBC 6.5, and platelets is 83. INR is 1.07. Sodium 144, potassium 3.8, chloride 114, bicarbonate 20, BUN 11, creatinine 0.5, glucose 89, hemoglobin A1c 5.2, calcium 8.1, phosphorus 2.2, magnesium 2.3. Cholesterol is 119. TSH 2.53. IMPRESSION AND PLAN: Status post gastrointestinal bleed, pelvic hematoma, pleural effusions, dislocated hip, chronic obstructive lung disease, history of seizure, paroxysmal atrial fibrillation, hepatitis C, and aortic aneurysm. The patient's blood pressure medication being on hold because of the hemorrhagic shock. Now blood pressure coming up, the medication being restarted. Continue head of bed elevated to keep at 45 degrees, sleep apnea precaution . Use CPAP as well as BIPAP. Followup labs in the morning. Anushka Barreto MD
[2017-10-16] MEDS: Potassium & Sodium Phosphate PO SCH (18:07)
--- NOTE | 2017-10-16 18:26 | US ---
HISTORY: Leg pain and swelling. Evaluate for DVT PHYSICIAN(S): Pratik Kendrick MD. TECHNIQUE: Duplex sonography and color-flow Doppler with graded compression were used to evaluate the deep venous systems of both lower extremities. The exam is very limited by the patient's inability to cooperate and edema. FINDINGS: The left popliteal vein appears to be occluded. The left femoral vein is patent and compressible. The left tibial veins are not well seen. The left common femoral vein is patent and compressible. There is no sonographic evidence for deep venous thrombosis in the visualized segments of the right lower extremity IMPRESSION: Very limited study. Chronic left popliteal and tibial DVT.
--- NOTE | 2017-10-16 20:15 | PN ---
DATE: 10/16/2017 REASON FOR CONSULTATION AND FOLLOWUP: History of paroxysmal atrial fibrillation, rectal sheath hematoma, severe anemia, altered mental status, and cardiac evaluation. SUBJECTIVE: The patient is much awake and alert. Denies any chest pain, shortness of breath, or any palpitations. PHYSICAL EXAMINATION: VITAL SIGNS: As follows; temperature afebrile, heart rate 109, and blood pressure . HEENT: PERRLA intact. NECK: Supple. No carotid bruit or thyromegaly. CHEST: Clear to auscultation. HEART: S1 and S2 regular. ABDOMEN: Soft. EXTREMITIES: Clubbing and cyanosis negative. LABORATORY DATA: Blood workup as follows: WBC 6.5, hemoglobin 10.9, hematocrit 30.2, and platelet count 83. Chemistry; sodium 140, potassium 3.0, chloride 101, carbon dioxide is 20, anion gap of 13, BUN 11, and creatinine 0.5. 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 RECOMMENDATIONS: The patient is in normal sinus now. Hold anticoagulation now. We will start hydralazine and clonidine and optimize her medical treatment. We will put clonidine patch #3 and give p.r.n. hydralazine. Also, we started beta-blockers. Norvasc is started by Dr. Cummins. Continue losartan and we will give hydralazine p.r.n. for systolic more than 170. Keep hemoglobin around 10. We will follow with you. Thank you Dr. Forte for providing us the opportunity in taking care of the patient, Emilia Marcos. Anushka Wilkerson MD
--- NOTE | 2017-10-17 00:30 | PN ---
DATE: 10/16/2017 SUBJECTIVE: A 76-year-old female in ICU. Patient is stable. She is more alert, moving the right arm and her hemoglobin is stable. PHYSICAL EXAMINATION: As follow: VITAL SIGNS: Temperature is 99, heart rate 83, blood pressure is running high at 179/89, respiratory rate 23 and saturation 92% nasal cannula. HEAD AND NECK: Normal. No JVD. No thyromegaly. CHEST: Clear. Good air entry. CARDIAC: First sound and second sound normal, irregular. ABDOMEN: Tender mainly on the left than right. Intact bowel sounds. EXTREMITIES: No edema. NEUROLOGIC: Shows left hemiplegia right arm is moving. Patient responds well, opened her eyes, seems better. LABORATORY STUDIES: As follow: White count is 6.5, hemoglobin 10.1, hematocrit 30.2 and platelets 83. Chemistry: Sodium 144, potassium 3.8, chloride 114, bicarbonate 20, BUN 11, creatinine 0.5, calcium 8.1, phosphorus 2.2, magnesium 2.3. IMPRESSION AND PLAN: 1. Acute bleeding in the rectus sheath of abdominal wall, stable, no surgical intervention. Patient's hemoglobin seems stable. Patient can be transferred. 2. Hypertension. Resume all blood pressure medicine. Dr. Cummins has seen the patient. We will continue to follow on that. Patient got Cozaar 100 mg p.o. daily, Catapres patch 0.3, hydralazine 10 mg p.o. four times daily p.r.n. She got also Lopressor 25 b.i.d., Norvasc 10 mg p.o. daily and we will follow up clinically. 2. Chronic anxiety, back pain. Continue Xanax. Continue Percocet for now. 3. History of thrombocytopenia, hepatitis C, psoriasis, stable at this time. 4. History of thyroid nodule, cerebrovascular accident, hypertension, high cholesterol. At this time, continue current therapy. We will follow up clinically. Patient also to get Austen for sleep and Sepideh for seizure disorder. We will resume all these medications. We will increase her metoprolol to 250 mg b.i.d. Albin Forte MD [facility] # [id number]
[2017-10-17 07:07] LABS: HEMOGLOBIN 10.1 g/dL (12.0-16.0); MEAN CELL VOLUME 90.1 fl (80.0-105.0); MEAN CORPUSCULAR HEMOGLOBIN 30.2 pg (25.0-35.0); MEAN CORPUSCULAR HGB CONC 33.6 g/dl (31.0-37.0); MEAN PLATELET VOLUME 9.3 fl (7.0-11.0); RBC 3.34 10^6/uL (3.5-6.1); RED CELL DISTRIBUTION WIDTH 18.8 % (11.5-14.5); WHITE BLOOD COUNT 6.5 10^3/ul (4.5-11.0)
[2017-10-17 07:43] LABS: ALB/GLOB RATIO 0.9 (1.1-1.8); ALBUMIN 2.6 g/dL (3.0-4.8); ALT/SGPT 38 U/L (7-56); AST/SGOT 38 U/L (14-36); BLOOD UREA NITROGEN 11 mg/dL (7-21); CALCIUM 8.1 mg/dL (8.4-10.5); GFR AFRICAN-AMERICAN > 60; GFR NON-AFRICAN AMERICAN > 60
[2017-10-17] MEDS: Levalbuterol 0.63 MG/3 ML Inhal Soln UD IH SCH ×3 (08:10→20:50)
[2017-10-17] MEDS ORDERED: Potassium Chloride 20 mEq ER Tab PO ONE (08:53)
[2017-10-17] MEDS: Nystatin 100,000 Units/gm Topical Pow(15 gm) TOP SCH ×2 (09:00→21:27)
[2017-10-17] MEDS: levETIRAcetam 500 mg/5ml UD cups PO SCH ×2 (09:10→17:46)
[2017-10-17] MEDS: Potassium & Sodium Phosphate PO SCH ×2 (09:11→17:45)
--- NOTE | 2017-10-17 09:48 | CP.PCM.PN ---
Subjective - Date & Time of Evaluation Date of Evaluation: 10/17/16 Time of Evaluation: 09:00 - Subjective Subjective: DATE: 10/17/2017 CHIEF COMPLAINT: F/U for Altered mental status. Subjective: Currently, the patient is on broad-spectrum antibiotics. BP is still elevated. She is at her baseline now. 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 coli UTI. ALLERGIES: ALLERGIC TO PENICILLIN. FAMILY HISTORY: Noncontributory. SOCIAL HISTORY: No illicit drug use, smoking, or EtOH abuse. REVIEW OF SYSTEMS: The 14-point review of systems negative as per the HPI. PHYSICAL EXAMINATION: VITAL SIGNS: Reviewed. GENERAL: The patient is drowsy, in no acute distress. HEENT: Head is atraumatic and normocephalic. PERRLA. Extraocular muscles are intact. NECK: Supple. No JVD. No adenopathy noted. LUNGS: Decreased breath sounds bilaterally. HEART: S1, S2. Normal rate and rhythm. No murmurs, rubs, or gallops. ABDOMEN: Soft, nontender, and nondistended. Bowel sounds are present. Abdomen is firm on the left side of the abdomen without any guarding. No rebound tenderness. No rigidity. NEURO: The patient is drowsy, in no acute distress. Recall after 5 minutes is 0/3. Poor attention and slow thought process. Cranial nerves II through XII intact except for residual left facial droop from prior CVA. MOTOR: She has left spastic hemiplegia from old CVA and kris the lower extremity muscles. She moves the right side without any difficulty. Coordination and gait deferred for now. DTRs are 1+ throughout. LABORATORY DATA: Reviewed. ASSESSMENT AND PLAN: This is a 76-year-old woman with past medical history of dyslipidemia, hypertension, atrial fibrillation, right middle cerebral artery territory infarct with residual left spastic hemiplegia, chronic left facial droop with prior CVA, history of seizure disorder secondary to a large right middle cerebral artery infarct, history of chronic pain syndrome, history of sepsis secondary to Escherichia coli, history of thrombocytopenia, history of chronic active hepatitis C, improved, presents to the hospital for altered mental status and lethargy. Lethargy is likely secondary to acute drop of hemoglobin causing rectus sheath hematoma. and underlying systemic inflammatory response syndrome. At this time, I recommend, 1. Repeat Ct head if mental status gets worse. Currently at baseline. 2. Monitor electrolytes and correct accordingly. 3. Keep bp btw 130-140 mm hg systolic. 4. Avoid systolic drops in blood pressure. 5. Delirium precautions. 6. Continue current present medical management. 7. Recommend KAYLA once stable. Thank you Rell Bernstein MD Objective - Vital Signs/Intake and Output Vital Signs (last 24 hours): Temp Pulse Resp BP Pulse Ox 99.9 F H 84 20 176/86 H 93 L 10/16/17 23:45 10/17/17 09:26 10/17/17 08:00 10/17/17 09:26 10/17/17 08:00 Intake and Output: 10/17/17 10/17/17 06:59 18:59 Intake Total 100 Output Total 302 Balance -202 - Medications Medications: Current Medications Alprazolam (Xanax) 0.25 mg PO BID PRN; Protocol PRN Reason: Anxiety Stop: 10/23/17 10:01 Amlodipine Besylate (Norvasc) 10 mg PO DAILY [facility] Last Admin: 10/17/17 09:10 Dose: 10 mg Clonidine HCl (Catapres-Tts3 0.3 Mg/24 Hr) 1 patch TD Q7D@1000 [facility] Last Admin: 10/16/17 18:09 Dose: 1 patch Famotidine (Pepcid) 20 mg IVP BID [facility] Last Admin: 10/17/17 09:11 Dose: 20 mg Hydralazine HCl (Apresoline) 10 mg PO QID PRN PRN Reason: for sbp>160 Last Admin: 10/17/17 03:29 Dose: 10 mg Hydralazine HCl (Apresoline) 50 mg PO BID [facility] Last Admin: 10/17/17 09:26 Dose: 50 mg Meropenem 1 gm/ Sodium (Chloride) 50 mls @ 100 mls/hr IVPB Q12 JEAN CLAUDE PRN Reason: Protocol Last Admin: 10/17/17 09:00 Dose: 100 mls/hr Levalbuterol HCl (Xopenex) 0.63 mg IH TIDRESP [facility] Last Admin: 10/16/17 20:30 Dose: 0.63 mg Levetiracetam (Keppra) 500 mg PO BID [facility] Last Admin: 10/17/17 09:10 Dose: 500 mg Losartan Potassium (Cozaar) 100 mg PO DAILY [facility] Last Admin: 10/17/17 09:10 Dose: 100 mg Metoprolol Tartrate (Lopressor) 50 mg PO BRKDIN [facility] Last Admin: 10/17/17 08:30 Dose: 50 mg Nystatin (Nystop Topical Powder) 0 gm TOP Q12 [facility] Last Admin: 10/17/17 09:00 Dose: 1 applic Oxycodone HCl (Oxycodone Immediate Release Tab) 5 mg PO Q6H PRN PRN Reason: Pain, moderate (4-7) Last Admin: 10/17/17 03:29 Dose: 5 mg Pantoprazole Sodium (Protonix Inj) 40 mg IVP DAILY [facility] Last Admin: 10/17/17 09:11 Dose: Not Given Potassium Phos/Sodium Phos (Neutra-Phos) 1 pkt PO BID [facility] Last Admin: 10/17/17 09:11 Dose: 1 pkt Zolpidem Tartrate (Ambien) 5 mg PO HS PRN; Protocol PRN Reason: Insomnia - Labs Labs: 10/17/17 06:30 10/17/17 06:30 PT 12.3 SECONDS (9.4-12.5) 10/16/17 06:00 INR 1.07 (0.93-1.08) 10/16/17 06:00 APTT 42.2 Seconds (25.1-36.5) H 10/13/17 15:14
--- NOTE | 2017-10-17 10:06 | PN ---
DATE: 10/17/2017 REASON FOR CONSULTATION: Followup paroxysmal atrial fibrillation, rectus sheath hematoma, severe anemia, alerted mental status, cardiac evaluation. SUBJECTIVE: The patient is much awake and alert. Denies any chest pain, shortness of breath, any palpitation. PHYSICAL EXAMINATION: GENERAL: Not in apparent distress. VITAL SIGNS: As follows; temperature afebrile, heart rate 97, blood pressure 193/98. HEENT: PERRLA. Extraocular muscles intact. NECK: Supple. No carotid bruits or thyromegaly. CHEST: Clear to auscultation. HEART: S1 and S2 regular. ABDOMEN: Soft. EXTREMITIES: Clubbing and cyanosis negative. LABORATORY DATA: Blood workup as follows: WBC 6.5, hemoglobin 10.2, hematocrit 30.1, and platelet count 90. Chemistry shows sodium 145, potassium 3.4, chloride 107, carbon dioxide is 22, anion gap of 10, BUN 11, and creatinine 0.6, total bilirubin 1.8, total protein 5.2, albumin 2.6. IMPRESSION: Protein calorie malnutrition, which is present on admission, hypokalemia, bleeding, rectus sheath hematoma, admitting hemoglobin was 5.2, multiple packed RBC transfusion, history of paroxysmal atrial fibrillation, history of endovascular repair, history of cardiac catheterization, nonobstructive coronary artery disease, history of abdominal aortic aneurysm, cerebrovascular accident contracture of left side, history of hepatitis C, chronic obstructive pulmonary disease, history of cerebrovascular accident. RECOMMENDATIONS: Aggressive control of blood pressure, hold anticoagulation because the patient's bleed, we spotted rectus hematoma. Risk and benefit ratio is in favor of holding. Continue clonidine patch started, put hydralazine 50 b.i.d., continue metoprolol tartarate, the patient is on amlodipine, the patient is on losartan, we will increase hydralazine to 50 b.i.d. in addition to p.r.n. We will follow. Thank you Dr. Forte for providing us the opportunity in taking care of patientEmilia, we will follow with you. Anushka iWlkerson MD [facility] # [id number]
--- NOTE | 2017-10-17 11:00 | CP.PCM.PN ---
Subjective - Date & Time of Evaluation Date of Evaluation: 10/17/17 Time of Evaluation: 09:50 - Subjective Subjective: Comfortable, no fevers overnight, sleepy but easily arousable, no diarrhea currently. Objective - Vital Signs/Intake and Output Vital Signs (last 24 hours): Temp Pulse Resp BP Pulse Ox 99.9 F H 84 19 176/86 H 97 10/16/17 23:45 10/17/17 09:26 10/17/17 09:00 10/17/17 09:26 10/17/17 09:00 Intake and Output: 10/17/17 10/17/17 06:59 18:59 Intake Total 100 Output Total 302 Balance -202 - Medications Medications: Current Medications Alprazolam (Xanax) 0.25 mg PO BID PRN; Protocol PRN Reason: Anxiety Stop: 10/23/17 10:01 Amlodipine Besylate (Norvasc) 10 mg PO DAILY [facility] BEDS AT [facility] Last Admin: 10/17/17 09:10 Dose: 10 mg Clonidine HCl (Catapres-Tts3 0.3 Mg/24 Hr) 1 patch TD Q7D@1000 [facility]CLUDE 234 BEDS AT THE [facility] Last Admin: 10/16/17 18:09 Dose: 1 patch Famotidine (Pepcid) 20 mg IVP BID [facility]CLUDE 234 BEDS AT THE [facility] Last Admin: 10/17/17 09:11 Dose: 20 mg Hydralazine HCl (Apresoline) 10 mg PO QID PRN PRN Reason: for sbp>160 Last Admin: 10/17/17 03:29 Dose: 10 mg Hydralazine HCl (Apresoline) 50 mg PO BID [facility]CLUDE 234 BEDS AT THE [facility] Last Admin: 10/17/17 09:26 Dose: 50 mg Meropenem 1 gm/ Sodium (Chloride) 50 mls @ 100 mls/hr IVPB Q12 JEAN CLAUDE PRN Reason: Protocol Last Admin: 10/17/17 09:00 Dose: 100 mls/hr Levalbuterol HCl (Xopenex) 0.63 mg IH TIDRESP [facility]S INCLUDE 234 BEDS AT THE [facility] Last Admin: 10/16/17 20:30 Dose: 0.63 mg Levetiracetam (Keppra) 500 mg PO BID [facility] INCLUDE 234 BEDS AT THE [facility] Last Admin: 10/17/17 09:10 Dose: 500 mg Losartan Potassium (Cozaar) 100 mg PO DAILY [facility]CLUDE 234 BEDS AT [facility] Last Admin: 10/17/17 09:10 Dose: 100 mg Metoprolol Tartrate (Lopressor) 50 mg PO BRKDIN [facility]S INCLUDE 234 BEDS AT THE [facility] Last Admin: 10/17/17 08:30 Dose: 50 mg Nystatin (Nystop Topical Powder) 0 gm TOP Q12 [facility]S INCLUDE 234 BEDS AT THE [facility] Last Admin: 10/17/17 09:00 Dose: 1 applic Oxycodone HCl (Oxycodone Immediate Release Tab) 5 mg PO Q6H PRN PRN Reason: Pain, moderate (4-7) Last Admin: 10/17/17 03:29 Dose: 5 mg Pantoprazole Sodium (Protonix Inj) 40 mg IVP DAILY [facility]CLUDE 234 BEDS AT THE [facility] Last Admin: 10/17/17 09:11 Dose: Not Given Potassium Phos/Sodium Phos (Neutra-Phos) 1 pkt PO BID [facility] INCLUDE 234 BEDS AT THE [facility] Last Admin: 10/17/17 09:11 Dose: 1 pkt Zolpidem Tartrate (Ambien) 5 mg PO HS PRN; Protocol PRN Reason: Insomnia - Labs Labs: 10/17/17 06:30 10/17/17 06:30 PT 12.3 SECONDS (9.4-12.5) 10/16/17 06:00 INR 1.07 (0.93-1.08) 10/16/17 06:00 APTT 42.2 Seconds (25.1-36.5) H 10/13/17 15:14 - Constitutional Appears: Chronically Ill - Head Exam Head Exam: NORMAL INSPECTION - ENT Exam ENT Exam: Mucous Membranes Moist - Neck Exam Neck Exam: absent: Meningismus - Respiratory Exam Respiratory Exam: Decreased Breath Sounds - Cardiovascular Exam Cardiovascular Exam: +S1, +S2 - GI/Abdominal Exam GI & Abdominal Exam: Soft. absent: Tenderness Additional comments: firmness noted on the left lower quadrant without tenderness Assessment and Plan - Assessment and Plan (Free Text) Plan: Assessment Systemic Inflammatory response syndrome, probably due to acute drop in Hgb from left rectus sheath hematoma, so far no evidence of sepsis identified but with new finding of probable severe acute pancreatitis Stage 4 decubitus ulcer history of right lower lobe healthcare-associated pneumonia history of ESBL E. coli and Enterococcus UTI history of ESBL E. coli UTI atrial fibrillation cerebrovascular accident history of aortic dissection seizure disorder history of thrombocytopenia HTN hypercholesterolemia chronic pain syndrome history of decubitus ulcers chronic active hepatitis C Plan continue Meropenem day 4; bloodcx; reviewed repeat CT A/P which showed acute pancreatitis; should d/c antibiotics in the next 48-72 hours will trend WBC count and continue to monitor clinically (WBC count has normalized )
[2017-10-17] MEDS: Dextrose 5%/0.45% NS 1,000 ML IV SCH (14:26)
--- NOTE | 2017-10-17 19:09 | PN ---
PULMONARY PROGRESS NOTE DATE: 10/17/2017 REFERRING PHYSICIAN: Albin Forte MD SUBJECTIVE: The patient is lying in the bed on nasal cannula oxygen. Night was unremarkable. Not much cough or sputum production. No nausea. No vomiting, diarrhea, leg pain, or leg swelling. OBJECTIVE: GENERAL: In no acute distress. VITAL SIGNS: Temperature is 98, heart rate is 84, respiratory rate is 20, blood pressure is 176/86, and pulse ox is 97% on 2 L nasal cannula. HEENT: Small oral cavity. Crowded airway. NECK: Supple. No JVD. LUNGS: Has a scattered rhonchi. HEART: S1 and S2. ABDOMEN: Soft and nontender. No organomegaly. EXTREMITIES: No edema. NEUROLOGIC: Awake, alert, and follow simple commands. MEDICATIONS: She is on Ambien 5 mg at bedtime p.r.n., hydralazine 10 mg four times daily p.r.n., also hydralazine 50 mg p.o. twice a day, Catapres patch 0.3 weekly, Cozaar 100 mg daily, IV fluid D5 half normal saline 20 mL per hour, Keppra 500 mg twice a day, metoprolol tartrate 50 mg twice a day, meropenem 1 g IV q.12 hours, K-Phos 1 pack twice a day, Norvasc 10 mg daily, also on oxycodone immediate release 5 mg q.6 hours p.r.n., Protonix 40 mg daily, Xanax 0.25 mg twice a day p.r.n. and Xopenex inhaled q.8 hours. LABORATORY DATA: Shows hemoglobin 10.1, hematocrit 30.1, WBC 6.5, and platelet is 90. Sodium 145, potassium 3.4, chloride 117, bicarbonate 22, BUN 11, creatinine 0.6, glucose is 101, and calcium 8.1. AST 38, ALT 30, and alkaline phosphatase is 64. Albumin is 2.9. Microbiology; blood culture, urine culture, and culture is unremarkable. IMPRESSION AND PLAN: Status post gastrointestinal bleed with severe anemia, requiring transfusion; has a pelvic hematoma; pleural effusion; chronic obstructive lung disease; seizure disorder; paroxysmal atrial fibrillation; hepatitis C; and aortic aneurysm. Pulmonary point of view, she is doing okay. Keep head at 45 degrees. Bronchodilator, sleep apnea precaution, avoid sedation, and followup H and H. Thank you and we will follow with you. Anushka Barreto MD
--- NOTE | 2017-10-17 19:10 | PN ---
DATE: 10/17/2017 SUBJECTIVE: The patient is seen lying in bed in the ICU. She is awake, she is alert, but not really following commands. She does not appear to be in any kind of respiratory distress at present. PHYSICAL EXAMINATION GENERAL: Elderly lady lying in bed in the ICU. VITAL SIGNS: Blood pressure 176/86, heart rate 84, respiratory rate 20 and temperature 98.7. HEENT: Normocephalic, atraumatic, positive pallor. NECK: Supple, no JVD. LUNGS: Bilateral equal air entry, bilateral equal expansion, no rales. CARDIAC: S1 and S2, regular rate and rhythm, no murmur, no rub. ABDOMEN: Soft, nondistended, nontender, bowel sounds present. EXTREMITIES: Contractures of the lower extremities, ulcers on the heels, trace edema. SKIN: Extensive ecchymosis of the right upper arm, skin breakdown in the back. INTAKE AND OUTPUT: 980/552. LABORATORY DATA: WBC 6.5, hemoglobin 10, hematocrit 30 and platelets 90. Sodium 145, potassium 3.4, chloride 117, CO2 of 22, BUN 11, creatinine 0.6, glucose 101, calcium 8.1, total bilirubin 1.8, AST 38, ALT 38, albumin 2.6. Urinalysis; yellow clear, pH 7.5, specific gravity 10/10, 100, blood small, leukocyte esterase small. Blood cultures no growth. Urine culture multiple species. CT of the abdomen and pelvis; pancreatic head is enlarged and ill defined. New [id number] amount of fluid in the retroperitoneum bilaterally. Cystic mass in the pancreatic tail, suspicious of severe acute pancreatitis, large 18-cm pelvic hematoma, bilateral pleural effusions, worsening anasarca. CURRENT MEDICATIONS: 1. Ambien. 2. Apresoline 10 mg q.i.d. p.r.n. 3. Hydralazine 50 b.i.d. 4. Catapres patch #3. 5. Losartan 100. 6. Keppra 500 b.i.d. 7. Lopressor 50 b.i.d. 8. Meropenem 1 g q. 12 hours. 9. Neutra-Phos 1 packet b.i.d. 10. Norvasc 10. 11. Protonix 40 mg IV daily. 12. Xanax. 13. Xopenex. ASSESSMENT: 1. Acute kidney injury, resolved. Suspect many acute tubular necrosis in the setting of hypotension, severe anemia and hypoperfusion. 2. Large right rectus sheath hematoma, intraabdominal bleed, required 5 units of packed red blood cells and 6 units of fresh frozen plasma. 3. Severe anemia status post transfusions. 4. Sepsis, possible pneumonia/urinary tract infection,?acute pancreatitis. 5. Atrial fibrillation. 6. History of cerebrovascular accident. 7. History of peripheral vascular disease. 8. History of hepatitis C. 9. History of seizure disorder. 10. Chronic thrombocytopenia. 11. Hypertension. 12. Hypernatremia. 13. Hypokalemia. PLAN 1. Gentle hydration with hypotonic fluids to correct her hypernatremia. 2. Push p.o. intake. 3. Supplement potassium. 4. Continue current antihypertensives. 5. Continue antibiotics. 6. Continue anti seizure medications. 7. Continue to hold anticoagulation. 8. Monitor H&H closely. 9. Monitor platelets closely. 10. The patient remains critically ill. More than 35 minutes was spent in the care of this critically ill patient. Jennifer Berg MD
--- NOTE | 2017-10-18 01:26 | PN ---
SUBJECTIVE: Patient is in ICU, stable. Hemoglobin is stable. No distress. She does complain of pain especially on touching her feet or her belly or her arms. She is more awake. No distress. PHYSICAL EXAMINATION VITAL SIGNS: Temperature is 98.7, heart rate is 75, blood pressure is 163/67, respirations 20, saturation 96% on 2 liters. HEAD AND NECK: Normal. CHEST: Clear. CARDIAC: First sound and second sound normal. ABDOMEN: Tender. Bowel sounds intact. EXTREMITIES: There is mild edema on both feet area. Both feet has healed cushions and there is pillow in between. Patient in different positions on different times for bedsore prevention. NEUROLOGIC: Her lower extremities are paraplegic. She does move her right arm. Her left arm is also not moving and 0/5 motor power. Left hemiplegia on neurologic exam. LABORATORY DATA: White count is 6.5, hemoglobin is 10.1, hematocrit is 30.1, platelets 96. Chemistry noted sodium 145, potassium 3.4, chloride 117, bicarbonate 22, BUN 11, creatinine 0.6, calcium 8.1, total bilirubin 1.8. AST, ALT, and alk phos is normal except slight elevation of AST. IMPRESSION AND PLAN: 1. Abdominal wall rectus sheath is bleeding which started healing and stabilized hemoglobin, clinically stable, no surgery. Continue to monitor H and H. 2. History of chronic atrial fibrillations. We will hold off on any transfusion and any Coumadin at this time or any blood thinner. Continue current therapy for now. Cardiology on the case, Dr. Wilkerson and also patient is seeing hematology, Dr. Sanchez. Patient does have also history of carotid stenosis, abdominal aortic stenting. We will keep monitor her case. Continue sequential compression devices for DVT prophylaxis. At this time, patient could benefit from baby aspirin, and we will start that in the morning. 3. Hypertension, stable. Continue hydralazine. Continue losartan 100 mg, hydralazine 50 b.i.d. She is going to need more hydralazine. Continue amlodipine 10 mg. Continue metoprolol 50 mg b.i.d. Patient is also on clonidine p.r.n. 4. Chronic back pain, chronic osteoarthritis, chronic anxiety. Continue Xanax and oxycodone. We will follow up clinically. 5. Chronic hepatitis C, cirrhosis, thrombocytopenia, history of carotid stenosis, aortic stenting. Continue current therapy. 6. Patient also have a history of seizure disorder. Currently, on Keppra 500 b.i.d. and severe osteoarthritis of her spine, back, and joints. Albin Forte MD
[2017-10-18] MEDS ORDERED: Metoprolol 1 mg/ml Inj IVP ONE (01:46)
[2017-10-18] MEDS: oxyCODONE 10 mg Immediate Release Tab PO PRN (04:15)
[2017-10-18] MEDS: Levalbuterol 0.63 MG/3 ML Inhal Soln UD IH SCH ×3 (07:54→21:27)
[2017-10-18] MEDS: levETIRAcetam 500 mg/5ml UD cups PO SCH ×2 (10:58→18:06)
[2017-10-18] MEDS: Potassium & Sodium Phosphate PO SCH ×2 (10:58→18:06)
[2017-10-18] MEDS: Meropenem IV 1 gm in NS 50 ML IVPB SCH ×2 (10:59→21:43)
[2017-10-18] MEDS: Nystatin 100,000 Units/gm Topical Pow(15 gm) TOP SCH ×2 (11:01→21:43)
--- NOTE | 2017-10-18 13:49 | CP.PCM.PN ---
Subjective - Date & Time of Evaluation Date of Evaluation: 10/18/17 Time of Evaluation: 12:30 - Subjective Subjective: Comfortable in bed, no fevers, not in distress. Objective - Vital Signs/Intake and Output Vital Signs (last 24 hours): Temp Pulse Resp BP Pulse Ox 97.9 F 108 H 20 168/97 H 98 10/18/17 08:00 10/18/17 09:07 10/18/17 08:00 10/18/17 10:58 10/18/17 08:00 Intake and Output: 10/18/17 10/18/17 06:59 18:59 Intake Total 620 Output Total 600 Balance 20 - Medications Medications: Current Medications Alprazolam (Xanax) 0.25 mg PO BID PRN; Protocol PRN Reason: Anxiety Stop: 10/23/17 10:01 Amlodipine Besylate (Norvasc) 10 mg PO DAILY [facility] Last Admin: 10/18/17 10:58 Dose: 10 mg Clonidine HCl (Catapres-Tts3 0.3 Mg/24 Hr) 1 patch TD Q7D@1000 [facility] Last Admin: 10/16/17 18:09 Dose: 1 patch Hydralazine HCl (Apresoline) 10 mg PO QID PRN PRN Reason: for sbp>160 Last Admin: 10/18/17 00:03 Dose: 10 mg Hydralazine HCl (Apresoline) 50 mg PO BID [facility] Last Admin: 10/18/17 11:00 Dose: Not Given Dextrose/Sodium Chloride (Dextrose 5%/0.45% Ns 1000 Ml) 1,000 mls @ 40 mls/hr IV .Q24H [facility] Last Admin: 10/17/17 14:26 Dose: 40 mls/hr Meropenem (Merrem Iv 1 Gm Premix) 50 mls @ 100 mls/hr IVPB Q12 [facility] Last Admin: 10/18/17 10:59 Dose: 100 mls/hr Levalbuterol HCl (Xopenex) 0.63 mg IH TIDRESP [facility] Last Admin: 10/18/17 07:54 Dose: 0.63 mg Levetiracetam (Keppra) 500 mg PO BID [facility] Last Admin: 10/18/17 10:58 Dose: 500 mg Losartan Potassium (Cozaar) 100 mg PO DAILY [facility] Last Admin: 10/18/17 11:01 Dose: 100 mg Metoprolol Tartrate (Lopressor) 50 mg PO BRKDIN [facility] Last Admin: 10/18/17 09:07 Dose: 50 mg Mupirocin (Bactroban Ointment) 0 gm TOP BID [facility] Nystatin (Nystop Topical Powder) 0 gm TOP Q12 [facility] Last Admin: 10/18/17 11:01 Dose: 1 applic Oxycodone HCl (Oxycodone Immediate Release Tab) 10 mg PO Q6H PRN PRN Reason: Pain, moderate (4-7) Last Admin: 10/18/17 04:15 Dose: 10 mg Pantoprazole Sodium (Protonix Inj) 40 mg IVP DAILY [facility] Last Admin: 10/18/17 10:58 Dose: 40 mg Potassium Phos/Sodium Phos (Neutra-Phos) 1 pkt PO BID [facility] Last Admin: 10/18/17 10:58 Dose: 1 pkt Zolpidem Tartrate (Ambien) 5 mg PO HS PRN; Protocol PRN Reason: Insomnia - Labs Labs: 10/17/17 06:30 10/17/17 06:30 PT 12.3 SECONDS (9.4-12.5) 10/16/17 06:00 INR 1.07 (0.93-1.08) 10/16/17 06:00 APTT 42.2 Seconds (25.1-36.5) H 10/13/17 15:14 - Constitutional Appears: Chronically Ill - Head Exam Head Exam: NORMAL INSPECTION - ENT Exam ENT Exam: Mucous Membranes Moist - Neck Exam Neck Exam: absent: Meningismus - Respiratory Exam Respiratory Exam: Decreased Breath Sounds - Cardiovascular Exam Cardiovascular Exam: +S1, +S2 - GI/Abdominal Exam GI & Abdominal Exam: Soft. absent: Tenderness Additional comments: firmness over the left lower quadrant area, no tenderness Assessment and Plan - Assessment and Plan (Free Text) Plan: Assessment Systemic Inflammatory response syndrome, probably due to acute drop in Hgb from left rectus sheath hematoma, so far no evidence of sepsis identified but with new finding of probable severe acute pancreatitis Stage 4 decubitus ulcer history of right lower lobe healthcare-associated pneumonia history of ESBL E. coli and Enterococcus UTI history of ESBL E. coli UTI atrial fibrillation cerebrovascular accident history of aortic dissection seizure disorder history of thrombocytopenia HTN hypercholesterolemia chronic pain syndrome history of decubitus ulcers chronic active hepatitis C Plan continue Meropenem day 5; blood cx are negative; reviewed repeat CT A/P which showed acute pancreatitis will trend WBC count and continue to monitor clinically (WBC count has normalized )
[2017-10-18 15:59] LABS: AMYLASE < 30 U/L (35-125); LIPASE 51 U/L (23-300)
[2017-10-18] MEDS: Potassium Chloride 20 MEQ in Dextrose 5%/0.45% NS 1,000 ML IV SCH (18:07)
[2017-10-18] MEDS: Dextrose 5%/0.45% NS 1,000 ML IV SCH (18:12)
--- NOTE | 2017-10-18 18:32 | PN ---
DATE: 10/18/2017 SUBJECTIVE: The patient is seen lying in bed. She is awake, responds to pain, and does not follow any commands. PHYSICAL EXAMINATION: GENERAL: An elderly lady lying in bed. VITAL SIGNS: Blood pressure 168/97, heart rate 108, respiratory rate 20, and temperature 97.9. HEENT: Normocephalic and atraumatic. Positive pallor. NECK: Supple. No JVD. LUNGS: Bilateral equal air entry. Bilateral equal expansion. CARDIAC: S1 and S2. Regular rate and rhythm. No murmur and no rub. ABDOMEN: Distended, firm, and appears tender. The patient and abdomen is palpated. Bowel sounds present. EXTREMITIES: Extensive ecchymosis of the upper extremities, edema of the lower extremities. INTAKE AND OUTPUT: 620/600. LABORATORY DATA: WBC 6.5, hemoglobin 10, hematocrit 30, and platelets 90. Sodium 145, potassium 3.4, chloride 117, CO2 of 22, BUN 11, creatinine 0.6, glucose 101, calcium 8.1, and albumin 2.6. Corrected calcium is 9.1. Total bilirubin 1.8, AST 38, and ALT 38. Cultures negative. CURRENT MEDICATIONS: Ambien, Apresoline 50 t.i.d., Bactroban, Catapres patch #3, losartan 100, D5 half normal saline at 40, Keppra 500 b.i.d., Lopressor 50 b.i.d., meropenem 1 g q.12 hours, Neutra-Phos 1 packet b.i.d., amlodipine 10, nystatin, oxycodone, Protonix, and Xanax. ASSESSMENT: 1. Severe internal abdominal bleed, hemoglobin was down to 6, rectus sheath bleed. 2. Acute abdomen, ?acute pancreatitis. 3. Acute kidney injury, prerenal azotemia, acute tubular necrosis secondary to hypotension and hypoperfusion. 4. Hypokalemia. 5. Hypernatremia. 6. Severe hypertension. PLAN: 1. Continue hypotonic fluids, add potassium 20 mEq to each liter. 2. Continue Neutra-Phos supplementation. 3. Monitor H and H closely. 4. Check amylase and lipase. Jennifer Berg MD [facility] # [id number]
--- NOTE | 2017-10-18 20:16 | PN ---
DATE: 10/18/2017 REASON FOR CONSULTATION: Followup paroxysmal atrial fibrillation, rectus sheath hematoma, severe anemia, alerted mental status, cardiac evaluation. SUBJECTIVE: The patient is lying flat in the bed, now is in 571, bed 1. Denies any chest pain, shortness of breath, any palpitation. PHYSICAL EXAMINATION GENERAL: Not in apparent distress, lying flat in the bed. VITAL SIGNS: As follows; temperature afebrile, heart rate 81 and blood pressure 161/77. HEENT: PERRLA. Extraocular muscles intact. NECK: Supple. No carotid bruits or thyromegaly. CHEST: Clear to auscultation. HEART: S1 and S2 regular. ABDOMEN: Soft. EXTREMITIES: Clubbing and cyanosis negative. LABORATORY DATA: Blood workup as follows: WBC 6.9, hemoglobin 10.2, hematocrit 30.1 and platelet count 90. INR 1.07. Chemistry: Sodium 145, potassium 3.0, chloride 101, carbon dioxide is 22, anion gap of 10, BUN 11 and creatinine 0.6, bilirubin 1.8, total protein 5.6, albumin 2.6 and albumin-globulin ratio was 0.9. IMPRESSION: Protein calorie malnutrition, which was present on admission, since then moderate, hypokalemia, supratherapeutic INR, rectus sheath hematoma, history of paroxysmal atrial fibrillation, history of endovascular stent, history of nonobstructive coronary artery disease, history of cerebrovascular accident with left-sided contracture. RECOMMENDATIONS: Start anticoagulation. Continue aggressive control of blood pressure and hydralazine p.o. t.i.d. 3 times. Continue Losartan. Continue metoprolol 50 b.i.d. Continue amlodipine to 10 mg. Continue Losartan. We will follow with you. Thank you Dr. Forte for providing us the opportunity in taking care of the patient, Emilia Marcos. Anushka Wilkerson MD
--- NOTE | 2017-10-19 00:41 | PN ---
DATE: 10/18/2017 PULMONARY PROGRESS NOTE REFERRING PHYSICIAN: Albin Forte MD SUBJECTIVE: She is lying in the bed. Head at 45 degree, feels okay, mild short of breath on exertion. No nausea, vomiting, diarrhea, leg pain or leg swelling. OBJECTIVE: GENERAL: In no acute distress. VITAL SIGNS: Temperature is 99, heart rate is 77, respiratory rate is 20, blood pressure is 136/76, and pulse ox is 98% on nasal cannula. HEENT: Moist mucous membranes. Small oral cavity. NECK: Supple. No JVD. LUNGS: Have a fair airflow with rhonchi. HEART: S1 and S2. ABDOMEN: Soft and nontender. No organomegaly. EXTREMITIES: No edema. NEUROLOGIC: Awake, alert and follow simple commands. LABORATORY DATA: Phosphorus this morning 3.3, amylase less than 30. Microbiology; blood culture, urine culture and nares was unremarkable. MEDICATIONS: She is on Ambien 5 mg at bedtime p.r.n., hydralazine 10 mg four times a day p.r.n., also hydralazine 50 mg three times daily around the clock, bacitracin ointment to the affected area twice a day, clonidine patch 0.3 q. 7 days, Cozaar 100 mg daily, Keppra 500 mg twice a day, metoprolol tartrate 50 mg twice a day, meropenem 1 g IV q. 12 hours, Neutra-Phos 1 pack twice a day, Norvasc 10 mg daily, nystatin twice a day, oxycodone immediate release 10 mg q. 6 hour p.r.n., potassium 20 mEq daily, Protonix 40 mg daily, Xanax 0.25 mg twice a day p.r.n., and Xopenex inhaled q. 8 hours. IMPRESSION AND PLAN: Status post gastrointestinal bleed, severe anemia, requiring transfusion, pelvic hematoma, pleural effusion, chronic obstructive lung disease, seizure disorder, paroxysmal atrial fibrillation, hepatitis C, and aortic aneurysm. Pulmonary point of view, she is doing okay. Keep head at 45 degrees. Sleep apnea precaution, careful with sedation, bronchodilator, gastric prophylaxis, high risk for thromboembolic disease, anticoagulation was stopped because of life threatening bleed, being followed by Gastroenterology and Cardiology. Thank you and we will follow with you. Anushka Barreto MD [facility] # [id number]
[2017-10-19] MEDS: Levalbuterol 0.63 MG/3 ML Inhal Soln UD IH SCH ×3 (07:52→21:35)
[2017-10-19] MEDS: Meropenem IV 1 gm in NS 50 ML IVPB SCH ×2 (12:40→21:49)
[2017-10-19] MEDS: levETIRAcetam 500 mg/5ml UD cups PO SCH ×2 (12:52→18:33)
[2017-10-19] MEDS: Potassium & Sodium Phosphate PO SCH ×2 (12:56→18:32)
[2017-10-19] MEDS: Pantoprazole 40 mg EC Tab PO SCH (12:59)
[2017-10-19] MEDS: Nystatin 100,000 Units/gm Topical Pow(15 gm) TOP SCH ×2 (13:28→21:49)
--- NOTE | 2017-10-19 16:11 | PN ---
DATE: REASON FOR CONSULTATION AND FOLLOWUP: Paroxysmal atrial fibrillation, rectus sheath hematoma, severe anemia, altered mental status, and cardiac evaluation. SUBJECTIVE: The patient denies any chest pain, shortness of breath or any palpitations. OBJECTIVE: GENERAL: Not in apparent distress, lying flat on the bed, contracture of left upper extremity. VITAL SIGNS: Temperature afebrile, heart rate , and blood pressure 174/98. HEENT: PERRLA intact. NECK: Supple. No carotid bruits or thyromegaly. HEART: S1 and S2 regular. ABDOMEN: Soft. EXTREMITIES: Clubbing and cyanosis negative. LABORATORY DATA: Blood workup as follows; WBC 6.9, hemoglobin 10.8, hematocrit 38.1, and platelet count 90 as of 10/17/2017. IMPRESSION: Rectus sheath hematoma, severe anemia, status post packed red blood cells transfusion, still the patient is anemic, history of paroxysmal atrial fibrillation, hypokalemia, supratherapeutic INR, history of endovascular stent, history of nonobstructive coronary artery disease, history of cerebrovascular accident with left-sided contracture. RECOMMENDATIONS: Anticoagulation was held because of supratherapeutic INR, now INR is 1.07. Blood pressure poorly controlled on hydralazine as well as Norvasc, clonidine patch. Aggressive control for blood pressure, continue losartan, continue metoprolol, continue amlodipine. We will follow with you. If H and H remain stable, risks and benefits ratio will be evaluated before restarting anticoagulation, though the patient is set up for DVT, PE, as well as AFib, risk of stroke, but if H and H remains stable and no further drop then we can restart low dose of anticoagulation until it is cleared by Surgery. We will discuss with Dr. Forte. We will repeat the lab in the morning. Thank you Dr. Forte for providing us the opportunity in taking care of the patient, Emilia Marcos. Anushka Wilkerson MD
--- NOTE | 2017-10-19 16:16 | CP.PCM.PN ---
<Letitia Wyatt - Last Filed: 10/19/17 16:10> Subjective - Date & Time of Evaluation Date of Evaluation: 10/19/17 Time of Evaluation: 16:10 - Subjective Subjective: Podiatry Progress Note - Drs. Arteaga/Denita 76 year old female patient seen and evaluated at bedside for left heel wound and right heel DTI. Patient more awake and alert this visit, responding to yes and no questions. NAEO. Dressings to bilateral heels appear clean/dry/intact. Multipodus boots present bilaterally. Denies N/V/F/D/C/SOB. Objective - Vital Signs/Intake and Output Vital Signs (last 24 hours): Temp Pulse Resp BP Pulse Ox 99.7 F H 91 H 18 174/90 H 94 L 10/19/17 08:00 10/19/17 12:56 10/19/17 08:00 10/19/17 12:56 10/19/17 08:00 Intake and Output: 10/19/17 10/19/17 06:59 18:59 Intake Total 300 120 Output Total 300 Balance 300 -180 - Medications Medications: Current Medications Alprazolam (Xanax) 0.25 mg PO TID [facility] PRN Reason: Protocol Stop: 10/26/17 10:01 Last Admin: 10/19/17 12:56 Dose: 0.25 mg Amlodipine Besylate (Norvasc) 10 mg PO DAILY [facility] Last Admin: 10/18/17 10:58 Dose: 10 mg Aspirin (Ecotrin) 81 mg PO DAILY [facility] Clonidine HCl (Catapres-Tts3 0.3 Mg/24 Hr) 1 patch TD Q7D@1000 [facility] Last Admin: 10/16/17 18:09 Dose: 1 patch Hydralazine HCl (Apresoline) 10 mg PO QID PRN PRN Reason: for sbp>160 Last Admin: 10/19/17 06:18 Dose: 10 mg Hydralazine HCl (Apresoline) 50 mg PO TID [facility] Last Admin: 10/19/17 12:56 Dose: 50 mg Meropenem (Merrem Iv 1 Gm Premix) 50 mls @ 100 mls/hr IVPB Q12 [facility] Last Admin: 10/19/17 12:40 Dose: 100 mls/hr Potassium Chloride 20 meq/ (Dextrose/Sodium Chloride) 1,010 mls @ 40 mls/hr IV .Q24H [facility] Last Admin: 10/18/17 18:07 Dose: 40 mls/hr Levalbuterol HCl (Xopenex) 0.63 mg IH TIDRESP [facility] Last Admin: 10/19/17 13:51 Dose: 0.63 mg Levetiracetam (Keppra) 500 mg PO BID [facility] Last Admin: 10/19/17 12:52 Dose: 500 mg Losartan Potassium (Cozaar) 100 mg PO DAILY [facility] Last Admin: 10/18/17 11:01 Dose: 100 mg Metoprolol Tartrate (Lopressor) 50 mg PO BRKDIN [facility] Last Admin: 10/19/17 09:58 Dose: 50 mg Mupirocin (Bactroban Ointment) 0 gm TOP BID [facility] Last Admin: 10/19/17 12:39 Dose: 1 applic Nystatin (Nystop Topical Powder) 0 gm TOP Q12 [facility] Last Admin: 10/19/17 13:28 Dose: 1 applic Oxycodone HCl (Oxycodone Immediate Release Tab) 10 mg PO Q6H PRN PRN Reason: Pain, moderate (4-7) Last Admin: 10/18/17 04:15 Dose: 10 mg Pantoprazole Sodium (Protonix Ec Tab) 40 mg PO DAILY [facility] Last Admin: 10/19/17 12:59 Dose: 40 mg Potassium Phos/Sodium Phos (Neutra-Phos) 1 pkt PO BID [facility] Last Admin: 10/19/17 12:56 Dose: 1 pkt Zolpidem Tartrate (Ambien) 5 mg PO HS PRN; Protocol PRN Reason: Insomnia - Labs Labs: 10/17/17 06:30 10/17/17 06:30 PT 12.3 SECONDS (9.4-12.5) 10/16/17 06:00 INR 1.07 (0.93-1.08) 10/16/17 06:00 APTT 42.2 Seconds (25.1-36.5) H 10/13/17 15:14 - Constitutional Appears: Well, Non-toxic, No Acute Distress - Extremities Exam Additional comments: Vasc: DP pulses weakly palpable 1/4 b/l. PT pulses nonpalpable b/l. CFT is delayed x10 digits. Temperature gradient cool to cool b/l. Neuro: gross and protective sensation diminished Derm: Ulceration noted to plantar aspect of left heel secondary to deep tissue injury with surrounding erythema; minimal sanguinous drainage present; no purulence, no malodor, no fluctuance - no clinical signs of infection noted. Posterior heel nonblanchable erythema noted b/l. Ecchymossi noted to dorsolateral right foot. Ortho: Tenderness to palpation left plantar heel wound. - Neurological Exam Neurological Exam: Alert, Awake Assessment and Plan - Assessment and Plan (Free Text) Assessment: 76 year old female with 1) left heel plantar ulceration, 2) left heel posterior DTI, 3) right heel posterior DTI Plan: Patient seen and evaluated at bedside Discussed with attending, Dr. Arteaga Mildly febrile this AM (99.7) Will continue to monitor heels b/l -Bactroban and optifoam applied to left heel -Optifoam to right heel Continue multipodus boots at all times while in bed Podiatry will continue to follow patient while in house <Bettie Arteaga - Last Filed: 10/20/17 07:59> Objective - Vital Signs/Intake and Output Vital Signs (last 24 hours): Temp Pulse Resp BP Pulse Ox 99.8 F H 77 18 135/65 98 10/19/17 16:00 10/19/17 18:35 10/19/17 16:00 10/19/17 18:35 10/19/17 16:00 Intake and Output: 10/20/17 10/20/17 06:59 18:59 Intake Total 1500 Balance 1500 - Medications Medications: Current Medications Alprazolam (Xanax) 0.25 mg PO TID [facility] PRN Reason: Protocol Stop: 10/26/17 10:01 Last Admin: 10/19/17 18:30 Dose: 0.25 mg Amlodipine Besylate (Norvasc) 10 mg PO DAILY [facility] Last Admin: 10/19/17 12:31 Dose: 10 mg Aspirin (Ecotrin) 81 mg PO DAILY [facility] Clonidine HCl (Catapres-Tts3 0.3 Mg/24 Hr) 1 patch TD Q7D@1000 [facility] Last Admin: 10/16/17 18:09 Dose: 1 patch Hydralazine HCl (Apresoline) 10 mg PO QID PRN PRN Reason: for sbp>160 Last Admin: 10/19/17 06:18 Dose: 10 mg Hydralazine HCl (Apresoline) 50 mg PO TID [facility] Last Admin: 10/19/17 18:35 Dose: 50 mg Meropenem (Merrem Iv 1 Gm Premix) 50 mls @ 100 mls/hr IVPB Q12 [facility] Last Admin: 10/19/17 21:49 Dose: 100 mls/hr Potassium Chloride 20 meq/ (Dextrose/Sodium Chloride) 1,010 mls @ 40 mls/hr IV .Q24H [facility] Last Admin: 10/19/17 16:28 Dose: 40 mls/hr Levalbuterol HCl (Xopenex) 0.63 mg IH TIDRESP [facility] Last Admin: 10/20/17 07:44 Dose: 0.63 mg Levetiracetam (Keppra) 500 mg PO BID [facility] Last Admin: 10/19/17 18:33 Dose: 500 mg Losartan Potassium (Cozaar) 100 mg PO DAILY [facility] Last Admin: 10/19/17 12:33 Dose: 100 mg Metoprolol Tartrate (Lopressor) 50 mg PO BRKDIN [facility] Last Admin: 10/19/17 18:32 Dose: 50 mg Mupirocin (Bactroban Ointment) 0 gm TOP BID [facility] Last Admin: 10/19/17 12:39 Dose: 1 applic Nystatin (Nystop Topical Powder) 0 gm TOP Q12 [facility] Last Admin: 10/19/17 21:49 Dose: 1 applic Oxycodone HCl (Oxycodone Immediate Release Tab) 10 mg PO Q6H PRN PRN Reason: Pain, moderate (4-7) Last Admin: 10/18/17 04:15 Dose: 10 mg Pantoprazole Sodium (Protonix Ec Tab) 40 mg PO DAILY [facility] Last Admin: 10/19/17 12:59 Dose: 40 mg Potassium Phos/Sodium Phos (Neutra-Phos) 1 pkt PO BID [facility] Last Admin: 10/19/17 18:32 Dose: 1 pkt Zolpidem Tartrate (Ambien) 5 mg PO HS PRN; Protocol PRN Reason: Insomnia - Labs Labs: 10/20/17 06:20 10/20/17 06:20 PT 12.3 SECONDS (9.4-12.5) 10/16/17 06:00 INR 1.07 (0.93-1.08) 10/16/17 06:00 APTT 42.2 Seconds (25.1-36.5) H 10/13/17 15:14 Attending/Attestation - Attestation I have personally seen and examined this patient.: Yes I have fully participated in the care of the patient.: Yes I have reviewed all pertinent clinical information, including history, physical exam and plan: Yes
[2017-10-19] MEDS: Potassium Chloride 20 MEQ in Dextrose 5%/0.45% NS 1,000 ML IV SCH (16:28)
--- NOTE | 2017-10-19 18:33 | PN ---
DATE: 10/19/2017 SUBJECTIVE: The patient is seen sitting up in bed. She is awake, she is alert, she is responsive today. PHYSICAL EXAMINATION GENERAL: Elderly lady, lying in bed. VITAL SIGNS: Blood pressure 174/90, heart rate 91, respiratory rate 18, temperature 99.7, T-max is 99.9. HEENT: Normocephalic, atraumatic. NECK: Supple, no JVD. LUNGS: Bilateral equal air entry, bilateral equal expansion. CARDIAC: S1, S2, regular rate and rhythm. No murmur, no rub. ABDOMEN: Obese, distended, firm, tender, bowel sounds present. EXTREMITIES: 1+ pitting edema of the lower extremities. INTAKE AND OUTPUT: Not charted. LABORATORY DATA: No new labs. CURRENT MEDICATIONS: Ambien, Apresoline 50 t.i.d., Catapres patch #3, losartan 100, Ecotrin, Keppra, Lopressor 50 b.i.d., Merrem 1 g q.12, Neutra-Phos 1 packet b.i.d., amlodipine 10, nystatin, oxycodone, IV fluids of D5 half-normal saline with 20 mEq of KCl at 40, Protonix, Xanax, Xopenex. ASSESSMENT: 1. Status post acute intraabdominal bleed, severe anemia. 2. Severe anemia, requiring multiple transfusions. 3. Resolved acute kidney injury. 4. Severe hypertension. 5. History of seizure disorder. 6. Hepatitis C. 7. History of chronic thrombocytopenia. PLAN: 1. Check labs. 2. Check hemoglobin. 3. Continue antiseizure medications. 4. Continue antibiotics. 5. Continue to hold anticoagulation. Jennifer Berg MD
--- NOTE | 2017-10-19 23:44 | PN ---
DATE: 10/19/2017 PULMONARY PROGRESS NOTE REFERRING PHYSICIAN: Albin Forte MD SUBJECTIVE: She is lying in the bed, head at 45 degrees, watching TV, night was unremarkable, just finished eating lunch. No significant cough or sputum production. No nausea. No vomiting. No diarrhea. No leg pain. No leg swelling. OBJECTIVE: GENERAL: In no acute distress. VITAL SIGNS: Temperature 99, heart rate 77, respiratory rate 18, blood pressure 175/65, pulse oximetry 98% on nasal cannula. HEENT: Moist mucous membranes. Small oral cavity. NECK: Supple. No JVD. LUNGS: Have a fair airflow with rhonchi. HEART: S1 and S2. ABDOMEN: Soft, nontender. No organomegaly. EXTREMITIES: There is no edema. NEUROLOGIC: Awake and alert. Follows simple commands. . MEDICATIONS: She is on Ambien 5 mg h.s. p.r.n., hydralazine 10 mg q.i.d. p.r.n., Catapres patch weekly, Cozaar 100 mg daily, Ecotrin 81 mg daily, Keppra 500 mg twice a day, metoprolol tartrate 50 mg twice a day, meropenem 1 gm IV q. 12 hours, Neutra-Phos 1 pack twice a day, Norvasc 10 mg daily, nystatin q.12 hours, oxycodone immediate release 10 mg q. 6 hours p.r.n., potassium 20 mEq daily, Protonix 40 mg daily, Xanax 0.25 mg 3 times daily, and Xopenex 0.63 three times a day. LABORATORY DATA: No new lab is available since yesterday. IMPRESSION AND PLAN: Status post gastrointestinal bleed with severe anemia, requiring transfusion; pelvic hematoma; pleural effusion; chronic obstructive lung disease; seizure disorder; paroxysmal atrial fibrillation; hepatitis C; history of aortic aneurysm. Pulmonary point of view, she is doing okay. Keep head at 45 degrees. Bronchodilator, gastric prophylaxis, SCD to lower extremity, off anticoagulation, high risk for thromboembolic disease, had a life-threatening episode of gastrointestinal bleed. Thank you and we will order labs for the morning. Anushka Barreto MD [facility] # [id number]
[2017-10-20 07:17] LABS: BASO # 0.01 K/mm3 (0.0-2.0); BASO % 0.2 % (0.0-3.0); EOS # 0.2 (0.0-0.7); EOS % 2.5 % (1.5-5.0); GRAN # 3.57 (1.4-6.5); GRAN % 60.1 % (50.0-68.0); HEMOGLOBIN 9.3 g/dL (12.0-16.0); LYMPH # 1.6 (1.2-3.4); LYMPH % 27.1 % (22.0-35.0); MEAN PLATELET VOLUME 10.2 fl (7.0-11.0); MONO # 0.6 (0.1-0.6); MONO % 10.1 % (1.0-6.0); RBC 3.1 10^6/uL (3.5-6.1); RED CELL DISTRIBUTION WIDTH 20.2 % (11.5-14.5); WHITE BLOOD COUNT 5.9 10^3/ul (4.5-11.0)
[2017-10-20 07:23] LABS: MEAN CELL VOLUME 93.9 fl (80.0-105.0)
[2017-10-20] MEDS: Levalbuterol 0.63 MG/3 ML Inhal Soln UD IH SCH ×3 (07:44→22:00)
[2017-10-20 07:48] LABS: ALB/GLOB RATIO 0.9 (1.1-1.8); ALBUMIN 2.6 g/dL (3.0-4.8); ALT/SGPT 29 U/L (7-56); AST/SGOT 40 U/L (14-36); BLOOD UREA NITROGEN 11 mg/dL (7-21); CALCIUM 8.3 mg/dL (8.4-10.5); GFR AFRICAN-AMERICAN > 60; GFR NON-AFRICAN AMERICAN > 60; MAGNESIUM 1.8 mg/dL (1.7-2.2)
--- NOTE | 2017-10-20 08:34 | PQF SKIN ---
This form is a permanent part of the medical record Dr. Bullard, Your documentation notes a stage 4 decubitus ulcer. Please specify if this is history of ulcer or present on admission since it is not listed as present on admission notes and will affect acuity (HAC). Clarification of your documentation is requested to better reflect the severity of illness and intensity of treatment of your patient. Indicators present [] Documentation of skin ulcer [x] Skin breakdown [] Skin wounds [] Wound Care consult [] Nursing assessment [] Mobility decreased [] Poor nutrition [] Other: [] Location in the medical record that reflects the above clinical findings: [] Treatment Provided: [] PHYSICIAN'S RESPONSE Based on your medical judgment of the clinical indicators outlined above, are you treating this patient for a known or suspected: Present On Admission [x] Skin ulcer NOS Please document site [] [x ] Yes [] No [] Breakdown, [] Exposed fat layer, [] Necrosis muscle, [] necrosis bone. Please document site [] [] PVD/PAD associated ulcer [] Yes [] No [] Diabetic ulcer Please document site [] [] Yes [] No [] Other, please indicate [] [] Yes [] No [] If Unable to Determine, please check the box, sign and date. In responding to this query, please exercise your independent professional judgment. The fact that a question is asked does not imply that any particular answer is desired or expected. Thank you for your clarification on this documentation. If you have any questions please call:[ ] * Thank you, [ ]Anirudh Joaquin [facility] #[id number] stone grader Pressure Ulcer Stage Descriptions *if the ulcer deteriorates during the admission/encounter, report the deepest stage of ulceration Stage I: Intact skin with non-blanchable redness of a localized area usually over a bony prominence; darkly pigmented skin may not have visible blanching Stage II: Partial thickness loss of dermis presenting as a shallow open ulcer with a red pink wound bed, without slough - may also present as an intact or open/ruptured serum filled blister Stage III: Full thickness tissue loss; subcutaneous fat may be visible but bone , tendon or muscle are not exposed. Slough may be present but does not obscur the depth of tissue loss - may include undermining and tunneling Stage IV: Full thickness tissue loss with exposed bone, tendon or muscle - slough eschar may be present on some parts of the wound bed; often includes undermining and tunneling Unstageable: Full thickness tissue loss in which the base of the ulcer is convered by slough and/or eschar *if the "unstageable ulcer" is "staged" during the admission/encounter, report the stage Suspected Deep Tissue Injury: Purple or maroon localized area of discolored intact skin or blood filled blister d/t damage of the underlying soft tissue from pressure and/or sheer. The wound may further evolve and become covered by a thin eschar. Evolution may be rapid exposing additional layers of tissue even with optimal treatment.~~~~~~~~~~~~~~~~~~~~~~~~~~~~~~~~~~~~~~~~~~~~~~~~~~~~~~~~~ ~~~~~~~~~~~~~~~~~~~~~~~~~~~~~~~~~~~~~~~~~~~~~~~~~~~~~~~~~~~~~~~~ JAVIER; 2006 REFERENCE: CLIFF RAMIREZ
[2017-10-20] MEDS: levETIRAcetam 500 mg/5ml UD cups PO SCH ×2 (10:51→17:20)
[2017-10-20] MEDS: Pantoprazole 40 mg EC Tab PO SCH (10:52)
[2017-10-20] MEDS: Meropenem IV 1 gm in NS 50 ML IVPB SCH (10:53)
[2017-10-20] MEDS: Nystatin 100,000 Units/gm Topical Pow(15 gm) TOP SCH ×2 (10:53→22:30)
[2017-10-20] MEDS: Potassium & Sodium Phosphate PO SCH (10:56)
--- NOTE | 2017-10-20 12:29 | PN ---
DATE: 10/19/2017 SUBJECTIVE: The patient is comfortable. She had the swallow evaluation surgery technician evaluated being as she was eating. No choking. She is doing well. She is more awake and more alert. PHYSICAL EXAMINATION: Is as follows: VITAL SIGNS: 10/19/2017, temperature is 99.7, heart rate 91, blood pressure is 171/90, on repeat it was 135/65, respirations 18. HEAD AND NECK: Normal. No JVD. No thyromegaly. CHEST: Clear. Diminished breath sounds. CARDIAC: First sound and second sound normal. ABDOMEN: Soft. There is tenderness in the mainly lower and left side abdomen. EXTREMITIES: The patient had heel cushions on both of them and pillow between them. There is small edema. NEUROLOGIC: The patient is having bilateral extremity weakness. She only moved her right arm. She is alert, awake, cooperative. IMPRESSION AND PLAN: 1. Acute bleeding in the rectus sheath of abdominal wall. We will continue to monitor hemoglobin and hematocrit, stable recently at the 10 level. The patient has no other complaint. 2. History of atrial fibrillations, question now we will start baby aspirin, question now comes to editor trade journal whether she will put her back her on any blood thinners near the future, otherwise the risk of stroke is high, still elevated with her history of chronic atrial fibrillation, carotid stenosis and abdominal aortic aneurysm stents, has extensive vascular history. At this time, we will start aspirin 81 mg once a day and we will evaluate. We will discuss that with the editor trade journal. 3. Hypertension, stable, continue blood pressure medicines. 4. Cerebrovascular accident, chronic, patient is bedridden. 5. Chronic anxiety, chronic osteoarthritis, continue oxycodone and Xanax, we will increase the dose gradually. PLAN: Proceed with current therapy, the patient seems stable, and will follow up clinically. The patient also seen by line controller, bedsore precautions applied. The patient does have a history of left hip chronic dislocations which limit her abilities into sit. At this time, continue current therapy. Follow up clinically. Albin Forte MD
--- NOTE | 2017-10-20 15:12 | PN ---
DATE: 10/20/2017 LOCATION: The patient is in room 571, bed 1. REASON FOR CONSULTATION AND FOLLOWUP: Paroxysmal atrial fibrillation, rectus sheath hematoma, severe anemia, altered mental status, old CVA. SUBJECTIVE: The patient is lying flat without any respiratory distress. No chest pain. No palpitation. PHYSICAL EXAMINATION: VITAL SIGNS: Blood pressure 141/74, respirations 19, pulse 78, temperature 98.1. HEENT: Head is normocephalic. Eyes, pupils normal. Conjunctivae slightly pale. NECK: JVP low. Carotids equal. THORAX: AP diameter normal. LUNGS: Clear. CARDIOVASCULAR: S1 and S2. ABDOMEN: Bowel sounds are normal. EXTREMITIES: No clubbing. No cyanosis. LABORATORY DATA: WBC 5.9, hemoglobin 9.3, hematocrit 29.1, and platelets 112. Sodium 144, potassium 4.1, BUN 11, creatinine 0.5, calcium 8.3, phosphorus 2.8, magnesium 1.8, total bilirubin 2.0. AST 40, ALT 29. Total protein 5.6, albumin 2.6. TSH 2.53. DIAGNOSES: Rectus sheath hematoma, severe anemia, status post packed red blood cell transfusion, history of paroxysmal atrial fibrillation. the patient has supratherapeutic INR, history of endovascular stent, history of nonobstructive coronary artery disease, history of cerebrovascular accident with left-sided contracture. PLAN: Anticoagulation was held because of supratherapeutic INR, but now also there is consideration, risks, benefits with anticoagulation. Also, there is a question if the patient will need any surgical intervention, so once she is cleared because she has a history of paroxysmal atrial fibrillation as well as high risk for DVT and PE, she will be anticoagulation versus provided there is not much risk of causing any bleeding. So, once this is decided, one can start coagulation while keeping INR low normal level. The patient is on hydralazine 50 t.i.d., clonidine 0.3 mg x 24 hours for 7 days, losartan 100 mg daily, D5W 40 mL an hour, aspirin 81 daily, Keppra 500 b.i.d., metoprolol 50 b.i.d., Merrem 1 g IV q.12 hours, Neutra-Phos 1 packet p.o. daily, amlodipine 10 mg p.o. daily. We will follow with you and today's prothrombin time on 10/16/2017 was 12.3, prothrombin time INR 1.07. We will continue to follow. Anushka Monroy MD
--- NOTE | 2017-10-20 16:27 | PN ---
DATE OF SERVICE: 10/20/2017 SUBJECTIVE: The patient is seen lying in bed. She is awake. She is alert. She is comfortable. PHYSICAL EXAMINATION: GENERAL: Elderly lady, lying in bed. VITAL SIGNS: Blood pressure 140/68, heart rate 78, respiratory rate 20, temperature 98.1. HEENT: Normocephalic, atraumatic. NECK: Supple, no JVD. LUNGS: Bilateral equal air entry, bilateral rhonchi, no rales. CARDIAC: S1 and S2, regular rate and rhythm, no murmur, no rub. ABDOMEN: Distended, soft, nontender, bowel sounds present. EXTREMITIES: No lower extremity edema. INTAKE AND OUTPUT: 1620/300. LABORATORY DATA: WBC 5.9, hemoglobin 9.3, hematocrit 29, platelets 112, sodium 144, potassium 4.1, chloride of 118, CO2 20, BUN 11, creatinine 0.5, glucose 81, calcium 8.3, phosphorus 2.8, magnesium 1.8, total bilirubin 2.0, AST 40, ALT 29, albumin 2.6, corrected calcium is 9.3. CURRENT MEDICATIONS: Ambien, Apresoline 10 q.i.d. p.r.n., Apresoline 50 t.i.d., Bactroban, Catapres patch #3, Cozaar 100, Ecotrin, Keppra, Lopressor 50 b.i.d., Merrem 1 g q.12, Neutra-Phos 1 packet b.i.d., amlodipine 10, nystatin, oxycodone, D5 half-normal saline with 20 of potassium, Protonix, Xanax. ASSESSMENT: 1. Resolved acute kidney injury. 2. Status post severe intra-abdominal bleed, rectus sheath bleed. 3. Status post severe anemia, hemoglobin stable. 4. Severe hypertension, well controlled at this time. 5. Hypokalemia, resolved. 6. Hypophosphatemia, resolved. 7. Hypernatremia. PLAN: 1. Change Neutra-Phos to 1 packet daily 2. Change IV fluids to D5W at 40 mL per hour. 3. Continue current antihypertensive regimen. 4. Monitor hemoglobin. 5. Physical therapy. Jennifer Berg MD [facility] # [id number]
--- NOTE | 2017-10-20 17:00 | CP.PCM.PN ---
<Thanh Pathak - Last Filed: 10/20/17 16:56> Subjective - Date & Time of Evaluation Date of Evaluation: 10/20/17 Time of Evaluation: 16:56 - Subjective Subjective: Podiatry Progress Note - Drs. Arteaga/Denita 76 year old female patient seen and evaluated at bedside for left heel wound and right heel DTI. Patient is not very verbal in her communication but does not show symptoms of AMS and answers yes-no questions. Denies any new onset pain or acute overnight events. Denies any new signs or symptoms of infection. Dressings to bilateral heels appear clean/dry/intact. Multipodus boots present bilaterally. Denies N/V/F/D/C/SOB. Objective - Vital Signs/Intake and Output Vital Signs (last 24 hours): Temp Pulse Resp BP Pulse Ox 98.1 F 78 19 140/68 95 10/20/17 08:00 10/20/17 08:00 10/20/17 08:00 10/20/17 10:53 10/20/17 08:00 Intake and Output: 10/20/17 10/20/17 06:59 18:59 Intake Total 1500 Balance 1500 - Medications Medications: Current Medications Alprazolam (Xanax) 0.25 mg PO TID [facility] PRN Reason: Protocol Stop: 10/26/17 10:01 Last Admin: 10/20/17 10:55 Dose: Not Given Amlodipine Besylate (Norvasc) 10 mg PO DAILY [facility] Last Admin: 10/20/17 10:53 Dose: 10 mg Aspirin (Ecotrin) 81 mg PO DAILY [facility] Last Admin: 10/20/17 10:51 Dose: 81 mg Clonidine HCl (Catapres-Tts3 0.3 Mg/24 Hr) 1 patch TD Q7D@1000 [facility] Last Admin: 10/16/17 18:09 Dose: 1 patch Hydralazine HCl (Apresoline) 10 mg PO QID PRN PRN Reason: for sbp>160 Last Admin: 10/19/17 06:18 Dose: 10 mg Hydralazine HCl (Apresoline) 50 mg PO TID [facility] Last Admin: 10/20/17 10:51 Dose: 50 mg Meropenem (Merrem Iv 1 Gm Premix) 50 mls @ 100 mls/hr IVPB Q12 [facility] Last Admin: 10/20/17 10:53 Dose: 100 mls/hr Dextrose (Dextrose 5% In Water 1000 Ml) 1,000 mls @ 40 mls/hr IV .Q24H [facility] Levalbuterol HCl (Xopenex) 0.63 mg IH TIDRESP [facility] Last Admin: 10/20/17 13:14 Dose: 0.63 mg Levetiracetam (Keppra) 500 mg PO BID [facility] Last Admin: 10/20/17 10:51 Dose: 500 mg Losartan Potassium (Cozaar) 100 mg PO DAILY [facility] Last Admin: 10/20/17 10:52 Dose: 100 mg Metoprolol Tartrate (Lopressor) 50 mg PO BRKDIN [facility] Last Admin: 10/20/17 10:52 Dose: 50 mg Mupirocin (Bactroban Ointment) 0 gm TOP BID [facility] Last Admin: 10/20/17 10:52 Dose: 1 applic Nystatin (Nystop Topical Powder) 0 gm TOP Q12 [facility] Last Admin: 10/20/17 10:53 Dose: 1 applic Oxycodone HCl (Oxycodone Immediate Release Tab) 10 mg PO Q6H PRN PRN Reason: Pain, moderate (4-7) Last Admin: 10/18/17 04:15 Dose: 10 mg Pantoprazole Sodium (Protonix Ec Tab) 40 mg PO DAILY [facility] Last Admin: 10/20/17 10:52 Dose: 40 mg Potassium Phos/Sodium Phos (Neutra-Phos) 1 pkt PO DAILY [facility] Warfarin Sodium (Coumadin) 2 mg PO 1800 [facility] PRN Reason: Protocol Zolpidem Tartrate (Ambien) 5 mg PO HS PRN; Protocol PRN Reason: Insomnia - Labs Labs: 10/20/17 06:20 10/20/17 06:20 PT 12.3 SECONDS (9.4-12.5) 10/16/17 06:00 INR 1.07 (0.93-1.08) 10/16/17 06:00 APTT 42.2 Seconds (25.1-36.5) H 10/13/17 15:14 - Constitutional Appears: Well, Non-toxic, No Acute Distress - Extremities Exam Additional comments: Vasc: DP pulses weakly palpable 1/4 b/l. PT pulses nonpalpable b/l. CFT is delayed x10 digits. Temperature gradient cool to cool b/l. Neuro: gross and protective sensation diminished Derm: Ulceration noted to plantar aspect of left heel secondary to deep tissue injury with surrounding erythema; minimal sanguinous drainage present; no purulence, no malodor, no fluctuance - no clinical signs of infection noted. Posterior heel nonblanchable erythema noted b/l. Ecchymossi noted to dorsolateral right foot. Ortho: Tenderness to palpation left plantar heel wound. - Neurological Exam Neurological Exam: Alert, Awake, Oriented x3 - Psychiatric Exam Psychiatric exam: Normal Affect, Normal Mood Assessment and Plan - Assessment and Plan (Free Text) Assessment: 76 year old female with 1) left heel plantar ulceration, 2) left heel posterior DTI, 3) right heel posterior DTI Plan: Patient seen and evaluated at bedside Plan discussed with attending Dr. Arteaga Afebrile, absent leukocytosis Bactroban, optifoam applied to left heel Multipodus boots applied b/l No plan for surgical intervention at this time Podiatry will continue to follow while patient in house <Bettie Arteaga - Last Filed: 10/31/17 16:20> Objective - Vital Signs/Intake and Output Vital Signs (last 24 hours): Temp Pulse Resp BP Pulse Ox 98.2 F 98 H 18 130/64 97 10/30/17 08:16 10/30/17 10:30 10/30/17 08:39 10/30/17 16:17 10/30/17 08:16 - Labs Labs: 10/30/17 05:30 10/30/17 05:30 PT 13.2 SECONDS (9.4-12.5) H 10/22/17 12:20 INR 1.14 (0.93-1.08) H 10/22/17 12:20 APTT 42.2 Seconds (25.1-36.5) H 10/13/17 15:14 Attending/Attestation - Attestation I have personally seen and examined this patient.: Yes I have fully participated in the care of the patient.: Yes I have reviewed all pertinent clinical information, including history, physical exam and plan: Yes
--- NOTE | 2017-10-20 17:15 | CP.PCM.PN ---
Subjective - Date & Time of Evaluation Date of Evaluation: 10/20/17 Time of Evaluation: 13:35 - Subjective Subjective: No fevers, not in distress. Objective - Vital Signs/Intake and Output Vital Signs (last 24 hours): Temp Pulse Resp BP Pulse Ox 98.1 F 78 19 140/68 95 10/20/17 08:00 10/20/17 08:00 10/20/17 08:00 10/20/17 10:53 10/20/17 08:00 Intake and Output: 10/20/17 10/20/17 06:59 18:59 Intake Total 1500 Balance 1500 - Medications Medications: Current Medications Alprazolam (Xanax) 0.25 mg PO TID [facility] PRN Reason: Protocol Stop: 10/26/17 10:01 Last Admin: 10/20/17 10:55 Dose: Not Given Amlodipine Besylate (Norvasc) 10 mg PO DAILY [facility] Last Admin: 10/20/17 10:53 Dose: 10 mg Aspirin (Ecotrin) 81 mg PO DAILY [facility] Last Admin: 10/20/17 10:51 Dose: 81 mg Clonidine HCl (Catapres-Tts3 0.3 Mg/24 Hr) 1 patch TD Q7D@1000 [facility] Last Admin: 10/16/17 18:09 Dose: 1 patch Hydralazine HCl (Apresoline) 10 mg PO QID PRN PRN Reason: for sbp>160 Last Admin: 10/19/17 06:18 Dose: 10 mg Hydralazine HCl (Apresoline) 50 mg PO TID [facility] Last Admin: 10/20/17 10:51 Dose: 50 mg Meropenem (Merrem Iv 1 Gm Premix) 50 mls @ 100 mls/hr IVPB Q12 [facility] Last Admin: 10/20/17 10:53 Dose: 100 mls/hr Dextrose (Dextrose 5% In Water 1000 Ml) 1,000 mls @ 40 mls/hr IV .Q24H [facility] Levalbuterol HCl (Xopenex) 0.63 mg IH TIDRESP [facility] Last Admin: 10/20/17 07:44 Dose: 0.63 mg Levetiracetam (Keppra) 500 mg PO BID [facility] Last Admin: 10/20/17 10:51 Dose: 500 mg Losartan Potassium (Cozaar) 100 mg PO DAILY [facility] Last Admin: 10/20/17 10:52 Dose: 100 mg Metoprolol Tartrate (Lopressor) 50 mg PO BRKDIN [facility] Last Admin: 10/20/17 10:52 Dose: 50 mg Mupirocin (Bactroban Ointment) 0 gm TOP BID [facility] Last Admin: 10/20/17 10:52 Dose: 1 applic Nystatin (Nystop Topical Powder) 0 gm TOP Q12 [facility] Last Admin: 10/20/17 10:53 Dose: 1 applic Oxycodone HCl (Oxycodone Immediate Release Tab) 10 mg PO Q6H PRN PRN Reason: Pain, moderate (4-7) Last Admin: 10/18/17 04:15 Dose: 10 mg Pantoprazole Sodium (Protonix Ec Tab) 40 mg PO DAILY [facility] Last Admin: 10/20/17 10:52 Dose: 40 mg Potassium Phos/Sodium Phos (Neutra-Phos) 1 pkt PO DAILY [facility] Zolpidem Tartrate (Ambien) 5 mg PO HS PRN; Protocol PRN Reason: Insomnia - Labs Labs: 10/20/17 06:20 10/20/17 06:20 PT 12.3 SECONDS (9.4-12.5) 10/16/17 06:00 INR 1.07 (0.93-1.08) 10/16/17 06:00 APTT 42.2 Seconds (25.1-36.5) H 10/13/17 15:14 - Constitutional Appears: Non-toxic - Head Exam Head Exam: NORMAL INSPECTION - Respiratory Exam Respiratory Exam: Decreased Breath Sounds - Cardiovascular Exam Cardiovascular Exam: +S1, +S2 - GI/Abdominal Exam GI & Abdominal Exam: Soft. absent: Tenderness Assessment and Plan - Assessment and Plan (Free Text) Plan: Assessment Systemic Inflammatory response syndrome, probably due to acute drop in Hgb from left rectus sheath hematoma, so far no evidence of sepsis identified but with new finding of probable severe acute pancreatitis Stage 4 decubitus ulcer history of right lower lobe healthcare-associated pneumonia history of ESBL E. coli and Enterococcus UTI history of ESBL E. coli UTI atrial fibrillation cerebrovascular accident history of aortic dissection seizure disorder history of thrombocytopenia HTN hypercholesterolemia chronic pain syndrome history of decubitus ulcers chronic active hepatitis C Plan on Meropenem day 7; blood cx are negative; reviewed repeat CT A/P which showed acute pancreatitis but lipase levels are normal - will d/c antibiotics and observe
[2017-10-20] MEDS: oxyCODONE 10 mg Immediate Release Tab PO PRN (17:42)
--- NOTE | 2017-10-20 20:48 | PN ---
DATE: 10/20/2017 PULMONARY PROGRESS NOTE REFERRING PHYSICIAN: lAbin Forte MD SUBJECTIVE: The patient is lying in the bed, comfortable. No headache. No rhinitis. No nausea. No vomiting. No diarrhea. No hematuria. No hematemesis. No melena. No leg swelling reported. PHYSICAL EXAMINATION GENERAL: In no acute distress. VITAL SIGNS: Temperature 98, heart rate 80, respiratory rate 20, blood pressure 142/74 and pulse oximetry 94% on nasal cannula. HEENT: Moist mucous membranes. Small oral cavity. LUNGS: Has a fair airflow with rhonchi. HEART: S1 and S2. ABDOMEN: Soft and nontender. No organomegaly. EXTREMITIES: There is no edema. NEUROLOGIC: Awake and alert. Follows simple commands. MEDICATIONS: She is on Ambien 5 mg at bedtime p.r.n., hydralazine 10 mg four times a day. p.r.n., also hydralazine 15 mg p.o. 3 times a day round the clock, clonidine 0.3 mg q. 7 days, Coumadin 2 mg will be given tonight, Cozaar 100 mg daily, Ecotrin 81 mg daily, Keppra 500 mg twice a day, metoprolol tartrate 50 mg twice a day, Neutra-Phos 1 pack daily, Norvasc 10 mg daily, nystatin affected area q. 12 hours, oxycodone immediate release 10 mg q. 6 hours p.r.n., Protonix 40 mg daily, Xanax 0.25 mg 3 times day and Xopenex inhaled q. 8 hours. LABORATORY DATA: Shows hemoglobin 9.3, hematocrit 29.1, WBC is 5.9 and platelets 112. Sodium 144, potassium 4.1, chloride 118, bicarbonate 20, BUN 11, creatinine 0.5, glucose is 89, calcium 8.3, phosphorus 2.8, magnesium 1.8, AST 40, ALT 29, alk phos is 66 and albumin 2.6. Amylase is less than 30, lipase is 51. Microbiology: Blood culture, urine culture, and nares cultures are unremarkable. IMPRESSION AND PLAN: Status post gastrointestinal bleed with severe anemia, requiring transfusion, pelvic hematoma, pleural effusion, chronic obstructive lung disease, seizure disorder, paroxysmal atrial fibrillation, history of hepatitis C and aortic aneurysm. Pulmonary point of view, doing okay. Keep head at 45 degrees. Sleep apnea precaution. Avoid sedation. Noted that anticoagulation started, need to follow up the patient closely. Pressure ulcers precaution. Thank you and we will follow with you. Anushka Barreto MD
--- NOTE | 2017-10-20 22:47 | CT ---
EXAM: CT Abdomen and Pelvis Without Intravenous Contrast EXAM DATE/TIME: 10/20/2017 7:50 PM CLINICAL HISTORY: 76 years old, female; Abnormal findings; Abnormal radiologic finding of the abdomen; Radiologic exam and body structure: Abd pelvis hematoma; Additional info: Check for bleeding TECHNIQUE: Axial computed tomography images of the abdomen and pelvis without intravenous contrast. All CT scans at this facility use one or more dose reduction techniques, viz.: automated exposure control; ma/kV adjustment per patient size (including targeted exams where dose is matched to indication; i.e. head); or iterative reconstruction technique. Coronal and sagittal reformatted images were created and reviewed. COMPARISON: CT - ABD PELVIS W/O PO OR IV CONT 2017-10-15 20:18 FINDINGS: Lower thorax: There are bilateral breast implants. The heart is mildly enlarged. There are coronary artery calcifications. There are bilateral pleural effusions. There is basilar atelectasis. There is a partially visualized distal thoracic aortic aneurysm with endograft. ABDOMEN: Liver: Hepatic contours are mildly nodular. There is prominence of the left and caudate lobes. There are calcifications in the liver. Gallbladder and bile ducts: Gallbladder is partially distended. There is a radiopaque material in the gallbladder, contrast versus stones. Common duct is not well demonstrated. Pancreas: There is inflammation and edema of bowel and in the pancreatic head. Body and tail are mildly atrophic. Spleen: The spleen is mildly enlarged. Adrenals: unremarkable Kidneys and ureters: Kidneys and ureters are unremarkable. Stomach and bowel: There is a hiatal hernia. Stomach is incompletely distended. There is mild inflammation and edema about the gastric fundus. There is mild wall thickening of the antrum and duodenum. Rotation is normal. Small bowel is mildly distended with fluid and air. There is no obstruction. Terminal ileum is unremarkable. Appendix is not visualized.Colon is incompletely distended which limits evaluation. There is scattered diverticulosis Appendix: See stomach and bowel PELVIS: Bladder: Bladder is almost completely empty. There is a Bush catheter. Reproductive: Unremarkable Subperitoneal space: There continues to be a large heterogeneous abdominal and pelvic wall Mass consistent with hematoma. There is continued extension into the space of Retzius. Hematoma measures at least 26 cm in length, image 35 series 601 ABDOMEN and PELVIS: Intraperitoneal space: There is ascites in the abdomen and pelvis.There is no free air. Bones/joints: Bony structures are osteopenic with degenerative change. There is a dislocated left hip prosthesis. Soft tissues: There is body wall edema. Vasculature: Abdominal aorta is tortuous. There is infrarenal dilatation, 3.6 cm in maximal diameter. Lymph nodes: There is shotty adenopathy. IMPRESSION: Obliquely oriented heterogeneous left abdominal wall and pelvic mass consistent with hematoma, size appears to be increased slightly compared to the prior study; cirrhosis with splenomegaly and ascites; probable pancreatitis with secondary inflammatory changes in the adjacent stomach and small bowel; mild ileus, no obstruction; interval increase in size of pleural effusions with increasing basilar airspace disease/atelectasis; atherosclerotic disease as described above Additional findings as described above.
--- NOTE | 2017-10-20 23:58 | CP.PCM.PN ---
Subjective - Date & Time of Evaluation Date of Evaluation: 10/20/17 Time of Evaluation: 23:55 - Subjective Subjective: Progress note General Surgery- Dr. Gonzales Was called for CT results on Ms. Hemant for slightly larger hematoma. Patient seen and examined at 23:45. Patient is resting comfortably vital signs stable. No signs of acute distress. Right side of the abdomen is soft, non-tender, no rebound. No acute surgical intervention at this time. Recommend follow up coagulation to ensure pt is therapeutic. will discuss with Dr. Christian Fournier PGY1 Objective - Vital Signs/Intake and Output Vital Signs (last 24 hours): Temp Pulse Resp BP Pulse Ox 98.9 F 82 18 142/74 95 10/20/17 16:00 10/20/17 16:00 10/20/17 16:00 10/20/17 17:19 10/20/17 16:00 Intake and Output: 10/20/17 10/21/17 18:59 06:59 Intake Total 320 Output Total 500 Balance -180 - Medications Medications: Current Medications Alprazolam (Xanax) 0.25 mg PO TID [facility] PRN Reason: Protocol Stop: 10/26/17 10:01 Last Admin: 10/20/17 17:21 Dose: Not Given Aspirin (Ecotrin) 81 mg PO DAILY [facility] Last Admin: 10/20/17 10:51 Dose: 81 mg Clonidine HCl (Catapres-Tts3 0.3 Mg/24 Hr) 1 patch TD Q7D@1000 [facility] Last Admin: 10/16/17 18:09 Dose: 1 patch Hydralazine HCl (Apresoline) 10 mg PO QID PRN PRN Reason: for sbp>160 Last Admin: 10/19/17 06:18 Dose: 10 mg Hydralazine HCl (Apresoline) 50 mg PO TID [facility] Last Admin: 10/20/17 17:18 Dose: 50 mg Dextrose (Dextrose 5% In Water 1000 Ml) 1,000 mls @ 40 mls/hr IV .Q24H [facility] Last Admin: 10/20/17 17:28 Dose: 40 mls/hr Levalbuterol HCl (Xopenex) 0.63 mg IH TIDRESP [facility] Last Admin: 10/20/17 13:14 Dose: 0.63 mg Levetiracetam (Keppra) 500 mg PO BID [facility] Last Admin: 10/20/17 17:20 Dose: 500 mg Losartan Potassium (Cozaar) 100 mg PO DAILY [facility] Last Admin: 10/20/17 10:52 Dose: 100 mg Metoprolol Tartrate (Lopressor) 50 mg PO BRKDIN [facility] Last Admin: 10/20/17 17:19 Dose: 50 mg Mupirocin (Bactroban Ointment) 0 gm TOP BID [facility] Last Admin: 10/20/17 17:19 Dose: 1 applic Nystatin (Nystop Topical Powder) 0 gm TOP Q12 [facility] Last Admin: 10/20/17 10:53 Dose: 1 applic Oxycodone HCl (Oxycodone Immediate Release Tab) 10 mg PO Q6H PRN PRN Reason: Pain, moderate (4-7) Last Admin: 10/20/17 17:42 Dose: 10 mg Pantoprazole Sodium (Protonix Ec Tab) 40 mg PO DAILY [facility] Last Admin: 10/20/17 10:52 Dose: 40 mg Potassium Phos/Sodium Phos (Neutra-Phos) 1 pkt PO DAILY [facility] Warfarin Sodium (Coumadin) 2 mg PO 1800 [facility] PRN Reason: Protocol Zolpidem Tartrate (Ambien) 5 mg PO HS PRN; Protocol PRN Reason: Insomnia - Labs Labs: 10/20/17 06:20 10/20/17 06:20 PT 12.3 SECONDS (9.4-12.5) 10/16/17 06:00 INR 1.07 (0.93-1.08) 10/16/17 06:00 APTT 42.2 Seconds (25.1-36.5) H 10/13/17 15:14
[2017-10-21] MEDS: oxyCODONE 10 mg Immediate Release Tab PO PRN (01:35)
[2017-10-21 07:14] LABS: MEAN CELL VOLUME 95.4 fl (80.0-105.0); MEAN CORPUSCULAR HEMOGLOBIN 30.3 pg (25.0-35.0); MEAN CORPUSCULAR HGB CONC 31.7 g/dl (31.0-37.0); MEAN PLATELET VOLUME 9.8 fl (7.0-11.0); RBC 2.61 10^6/uL (3.5-6.1); RED CELL DISTRIBUTION WIDTH 20.1 % (11.5-14.5); WHITE BLOOD COUNT 4.2 10^3/ul (4.5-11.0)
[2017-10-21 07:17] LABS: ALB/GLOB RATIO 0.8 (1.1-1.8); ALBUMIN 2.3 g/dL (3.0-4.8); ALT/SGPT 30 U/L (7-56); AST/SGOT 33 U/L (14-36); BLOOD UREA NITROGEN 10 mg/dL (7-21); CALCIUM 7.9 mg/dL (8.4-10.5); GFR AFRICAN-AMERICAN > 60; GFR NON-AFRICAN AMERICAN > 60
[2017-10-21] MEDS: Levalbuterol 0.63 MG/3 ML Inhal Soln UD IH SCH ×3 (07:47→20:08)
[2017-10-21 08:05] LABS: HEMOGLOBIN 7.9 g/dL (12.0-16.0)
[2017-10-21 10:39] LABS: HEMOGLOBIN 7.6 g/dL (12.0-16.0)
[2017-10-21] MEDS: Nystatin 100,000 Units/gm Topical Pow(15 gm) TOP SCH (11:00)
[2017-10-21] MEDS: levETIRAcetam 500 mg/5ml UD cups PO SCH ×2 (11:11→17:48)
[2017-10-21] MEDS: Potassium & Sodium Phosphate PO SCH (11:12)
[2017-10-21] MEDS: Pantoprazole 40 mg EC Tab PO SCH (11:12)
[2017-10-21 13:05] LABS: INR 1.16 (0.93-1.08); PROTHROMBIN TIME 13.4 SECONDS (9.4-12.5)
--- NOTE | 2017-10-21 13:22 | CP.PCM.PN ---
<Thanh Pathak - Last Filed: 10/21/17 13:15> Subjective - Date & Time of Evaluation Date of Evaluation: 10/21/17 Time of Evaluation: 13:15 - Subjective Subjective: Podiatry Progress Note - Drs. Arteaga/Denita 76 year old female patient seen and evaluated at bedside for left heel wound and right heel DTI. Patient is AAO x 3 and NAD resting comfortably in bed. Denies any new onset pain or acute overnight events. Denies any new signs or symptoms of infection. Multipodus boots present bilaterally. Denies N/V/F/D/C/ SOB. Objective - Vital Signs/Intake and Output Vital Signs (last 24 hours): Temp Pulse Resp BP Pulse Ox 97.6 F 76 18 145/69 96 10/21/17 08:00 10/21/17 11:11 10/21/17 08:00 10/21/17 11:11 10/21/17 08:00 Intake and Output: 10/21/17 10/21/17 06:59 18:59 Intake Total 1280 Output Total 800 Balance 480 - Medications Medications: Current Medications Alprazolam (Xanax) 0.25 mg PO TID [facility] PRN Reason: Protocol Stop: 10/26/17 10:01 Last Admin: 10/21/17 11:13 Dose: Not Given Clonidine HCl (Catapres-Tts3 0.3 Mg/24 Hr) 1 patch TD Q7D@1000 [facility] Last Admin: 10/16/17 18:09 Dose: 1 patch Hydralazine HCl (Apresoline) 10 mg PO QID PRN PRN Reason: for sbp>160 Last Admin: 10/19/17 06:18 Dose: 10 mg Hydralazine HCl (Apresoline) 50 mg PO TID [facility] Last Admin: 10/21/17 06:38 Dose: 50 mg Dextrose (Dextrose 5% In Water 1000 Ml) 1,000 mls @ 40 mls/hr IV .Q24H [facility] Last Admin: 10/20/17 17:28 Dose: 40 mls/hr Levalbuterol HCl (Xopenex) 0.63 mg IH TIDRESP [facility] Last Admin: 10/21/17 13:04 Dose: 0.63 mg Levetiracetam (Keppra) 500 mg PO BID [facility] Last Admin: 10/21/17 11:11 Dose: 500 mg Losartan Potassium (Cozaar) 100 mg PO DAILY [facility] Metoprolol Tartrate (Lopressor) 50 mg PO BRKDIN [facility] Last Admin: 10/21/17 11:11 Dose: 50 mg Mupirocin (Bactroban Ointment) 0 gm TOP BID [facility] Last Admin: 10/20/17 17:19 Dose: 1 applic Nystatin (Nystop Topical Powder) 0 gm TOP Q12 [facility] Last Admin: 10/20/17 22:30 Dose: 1 applic Oxycodone HCl (Oxycodone Immediate Release Tab) 10 mg PO Q6H PRN PRN Reason: Pain, moderate (4-7) Last Admin: 10/21/17 01:35 Dose: 10 mg Pantoprazole Sodium (Protonix Ec Tab) 40 mg PO DAILY [facility] Last Admin: 10/21/17 11:12 Dose: 40 mg Potassium Phos/Sodium Phos (Neutra-Phos) 1 pkt PO DAILY [facility] Last Admin: 10/21/17 11:12 Dose: 1 pkt Zolpidem Tartrate (Ambien) 5 mg PO HS PRN; Protocol PRN Reason: Insomnia - Labs Labs: 10/21/17 10:30 10/21/17 06:20 PT 13.4 SECONDS (9.4-12.5) H 10/21/17 12:40 INR 1.16 (0.93-1.08) H 10/21/17 12:40 APTT 42.2 Seconds (25.1-36.5) H 10/13/17 15:14 - Constitutional Appears: Well, Non-toxic, No Acute Distress - Extremities Exam Additional comments: Vasc: DP pulses weakly palpable 1/4 b/l. PT pulses nonpalpable b/l. CFT is delayed x10 digits. Temperature gradient cool to cool b/l. Neuro: gross and protective sensation diminished Derm: Ulceration noted to plantar aspect of left heel secondary to deep tissue injury with surrounding erythema; minimal sanguinous drainage present; no purulence, no malodor, no fluctuance - no clinical signs of infection noted. Posterior heel nonblanchable erythema noted b/l. Ecchymossi noted to dorsolateral right foot. Ortho: Tenderness to palpation left plantar heel wound. - Neurological Exam Neurological Exam: Alert, Awake, Oriented x3 - Psychiatric Exam Psychiatric exam: Normal Affect, Normal Mood Assessment and Plan - Assessment and Plan (Free Text) Assessment: 76 year old female with 1) left heel plantar ulceration, 2) left heel posterior DTI, 3) right heel posterior DTI Plan: Patient seen and evaluated at bedside with attending Dr. Barger Patient febrile this morning 100.4 but normalized now to 97.6 Absent leukocytosis Wound dressed with bactroban and optifoam Multipodus boots applied No surgical intervention planned at this time Patient stable from podiatric standpoint Podiatry will continue to follow while patient in house <Richard Barger - Last Filed: 10/24/17 11:24> Objective - Vital Signs/Intake and Output Vital Signs (last 24 hours): Temp Pulse Resp BP Pulse Ox 98.3 F 76 18 161/66 H 97 10/24/17 08:00 10/24/17 08:00 10/24/17 08:00 10/24/17 08:00 10/24/17 08:00 Intake and Output: 10/24/17 10/24/17 06:59 18:59 Intake Total 0 Output Total 400 Balance -400 - Medications Medications: Current Medications Alprazolam (Xanax) 0.25 mg PO TID [facility] PRN Reason: Protocol Stop: 10/26/17 10:01 Last Admin: 10/24/17 09:42 Dose: 0.25 mg Clonidine HCl (Catapres-Tts3 0.3 Mg/24 Hr) 1 patch TD Q7D@1000 [facility] Last Admin: 10/23/17 09:35 Dose: 1 patch Hydralazine HCl (Apresoline) 10 mg PO QID PRN PRN Reason: for sbp>160 Last Admin: 10/19/17 06:18 Dose: 10 mg Hydralazine HCl (Apresoline) 100 mg PO TID [facility] Last Admin: 10/24/17 09:42 Dose: 100 mg Dextrose/Sodium Chloride (Dextrose 5%/0.45% Ns 1000 Ml) 1,000 mls @ 60 mls/hr IV .[id number] [facility] Last Admin: 10/24/17 07:58 Dose: 60 mls/hr Levalbuterol HCl (Xopenex) 0.63 mg IH TIDRESP [facility] Last Admin: 10/24/17 07:39 Dose: 0.63 mg Levetiracetam (Keppra) 500 mg PO BID [facility] Last Admin: 10/24/17 09:42 Dose: 500 mg Losartan Potassium (Cozaar) 100 mg PO DAILY [facility] Last Admin: 10/24/17 09:42 Dose: 100 mg Metoprolol Tartrate (Lopressor) 50 mg PO BRKDIN [facility] Last Admin: 10/24/17 07:58 Dose: 50 mg Mupirocin (Bactroban Ointment) 0 gm TOP BID [facility] Last Admin: 10/24/17 09:43 Dose: 1 applic Nystatin (Nystop Topical Powder) 0 gm TOP Q12 [facility] Last Admin: 10/24/17 09:43 Dose: 1 applic Oxycodone HCl (Oxycodone Immediate Release Tab) 10 mg PO Q6H PRN PRN Reason: Pain, moderate (4-7) Last Admin: 10/24/17 09:42 Dose: 10 mg Pantoprazole Sodium (Protonix Ec Tab) 40 mg PO DAILY [facility] Last Admin: 10/24/17 09:42 Dose: 40 mg Potassium Phos/Sodium Phos (Neutra-Phos) 1 pkt PO DAILY [facility] Last Admin: 10/24/17 09:42 Dose: 1 pkt Trazodone HCl (Desyrel) 50 mg PO HS [facility] Last Admin: 10/23/17 21:27 Dose: 50 mg Zolpidem Tartrate (Ambien) 5 mg PO HS PRN; Protocol PRN Reason: Insomnia - Labs Labs: 10/24/17 07:20 10/24/17 07:20 PT 13.2 SECONDS (9.4-12.5) H 10/22/17 12:20 INR 1.14 (0.93-1.08) H 10/22/17 12:20 APTT 42.2 Seconds (25.1-36.5) H 10/13/17 15:14 Attending/Attestation - Attestation I have personally seen and examined this patient.: Yes I have fully participated in the care of the patient.: Yes I have reviewed all pertinent clinical information, including history, physical exam and plan: Yes
--- NOTE | 2017-10-21 14:37 | PN ---
DATE: 10/21/2017 REASON FOR CONSULTATION AND FOLLOWUP: Paroxysmal atrial fibrillation, rectus sheath hematoma, severe anemia, altered mental status on multiple transfusions, and old CVA. SUBJECTIVE: Not in apparent distress. PHYSICAL EXAMINATION: VITAL SIGNS: Temperature afebrile, heart rate 71, blood pressure 116/78. HEENT: PERRLA intact. NECK: Supple. No carotid bruits or thyromegaly. CHEST: Clear to auscultation. HEART: S1 and S2 regular. ABDOMEN: Soft. EXTREMITIES: Clubbing and cyanosis negative. LABORATORY DATA: WBC 4.2, hemoglobin 7.9, hematocrit 24.9, platelet count 102. Chemistry shows sodium 130, potassium 4, chloride 114, carbon dioxide 22, anion gap of 15, BUN 10, creatinine 0.5, total protein is 5, albumin 2.7, albumin-globin ratio is 0.8. IMPRESSION: Severe protein calorie malnutrition with a present admission, severe anemia, status post rectus sheath hematoma, paroxysmal atrial fibrillation, cerebrovascular accident, was on Coumadin at home, held because of rectus sheath hematoma. On admission, the patient had a supratherapeutic INR, history of cardiac catheterization, nonobstructive coronary artery disease, history of endovascular stent, history of cerebrovascular accident with contracture left side . RECOMMENDATIONS: The patient though is at high risk for stroke because of underlying comorbidity in paroxysmal atrial fibrillation and high risk of DVT, PE too as well, but the patient has dropping H and H, so we will keep off Coumadin because risk and benefits ratio, the patient can bleed to . Yesterday or day before, I dictated H and H that the patient is very stable and risk and benefit ratio in favor to restart Coumadin because the patient is high risk for DVT, PE set up as well as an AFib, but since H and H is keep on dropping, so we will not restart anticoagulation for now. Discussed with Dr. Forte in the morning in length. Continue aggressively treat the blood pressure with hydralazine increased to p.o. t.i.d., continue losartan, continue clonidine patch #3, we will follow with you. Thank you Dr. Forte for providing us the opportunity in taking care of the patient, Emilia Marcos. Anushka Wilkerson MD [facility] # [id number]
--- NOTE | 2017-10-21 16:12 | PN ---
DATE: SUBJECTIVE: The patient is currently seen, staring at the ceiling. She is noncommunicative. She appears to be alert and comfortable. MEDICATIONS: Medication list reviewed. The patient is currently on Ambien, Apresoline, mupirocin, Benadryl, Catapres patch, losartan, D5W 40 mL an hour, Keppra, Lopressor, Neutra-Phos, nystatin topical powder, oxycodone p.r.n., Protonix, Solu-Cortef, Tylenol p.r.n., Xanax, and Xopenex. OBJECTIVE: VITAL SIGNS: Blood pressure presently 145/69, pulse of 76, temperature 97.6, respiratory rate is 18 with a pulse ox of 96%. HEENT: Shows her to be normocephalic, atraumatic. Conjunctivae are pale. Sclerae are nonicteric. NECK: Supple. No neck vein distention. CHEST: Clear to auscultation and percussion. No rales, no rhonchi, or wheezing. CARDIOVASCULAR: S1, S2 were normal. No audible murmurs, rubs, or gallops. ABDOMEN: Soft. Nondistended. Bowel sounds normal. : Positive indwelling Bush catheter. EXTREMITIES: No lower extremity cyanosis, clubbing, or edema. LABORATORY DATA AND IMAGING: CBC today white blood cell count 4.2, hemoglobin down to 7.6. Hence, the patient is receiving 2 units of packed red blood cells. Platelet count is 97,000. Chemistry show a BUN of 10 with a creatinine of 0.5. Sodium 139, potassium 4.0, chloride is 114 with a CO2 of 22. Calcium is 7.9 with an albumin of 2.3, corrects to normal. Phosphorus 2.8, normal. Magnesium 1.8. Bilirubin 1.5. Normal liver enzymes otherwise. ASSESSMENT: 1. Status post acute renal failure. 2. Status post severe intraabdominal bleed secondary to a rectus sheath bleed secondary to fall. 3. Status post severe anemia. Hemoglobin continues to drift downward. The patient will receive 2 units of packed red blood cells today. 3. History of severe hypertension, currently controlled on present medication. 4. Hypokalemia, resolved; hypophosphatemia, resolved; status post mild hypernatremia. 5. Possible sepsis, possible pneumonia, possible urinary tract infection. The patient completed a course of antibiotic therapy. 6. History of atrial fibrillation. The patient had been on chronic anticoagulation. This is on hold for her rectus sheath bleed. 7. Past history of cerebrovascular accident. 8. History of peripheral vascular disease, status post thoracic aortic aneurysm with endovascular graft repair. 9. Past history of hepatitis C. 10. History of seizure disorder, on Keppra therapy. 11. History of chronic stable thrombocytopenia. PLAN: 1. From renal standpoint, the patient appears to be stable. It is not clear to me that if she has adequate oral intake. Hence, she continues on low volume IV fluid hydration. 2. Agree with transfusion in light of her anemia. 3. Continue to monitor labs along with you on a regular basis. Jaycob Cummins MD
--- NOTE | 2017-10-21 16:24 | CP.PCM.PN ---
Subjective - Date & Time of Evaluation Date of Evaluation: 10/21/17 Time of Evaluation: 11:00 - Subjective Subjective: Patient is sleepy but arousable, no fevers overnight, not in distress. Objective - Vital Signs/Intake and Output Vital Signs (last 24 hours): Temp Pulse Resp BP Pulse Ox 97.6 F 71 18 162/78 H 96 10/21/17 08:00 10/21/17 08:00 10/21/17 08:00 10/21/17 08:00 10/21/17 08:00 Intake and Output: 10/21/17 10/21/17 06:59 18:59 Intake Total 1280 Output Total 800 Balance 480 - Medications Medications: Current Medications Alprazolam (Xanax) 0.25 mg PO TID [facility] PRN Reason: Protocol Stop: 10/26/17 10:01 Last Admin: 10/20/17 17:21 Dose: Not Given Clonidine HCl (Catapres-Tts3 0.3 Mg/24 Hr) 1 patch TD Q7D@1000 [facility] Last Admin: 10/16/17 18:09 Dose: 1 patch Hydralazine HCl (Apresoline) 10 mg PO QID PRN PRN Reason: for sbp>160 Last Admin: 10/19/17 06:18 Dose: 10 mg Hydralazine HCl (Apresoline) 50 mg PO TID [facility] Last Admin: 10/21/17 06:38 Dose: 50 mg Dextrose (Dextrose 5% In Water 1000 Ml) 1,000 mls @ 40 mls/hr IV .Q24H [facility] Last Admin: 10/20/17 17:28 Dose: 40 mls/hr Levalbuterol HCl (Xopenex) 0.63 mg IH TIDRESP [facility] Last Admin: 10/21/17 07:47 Dose: 0.63 mg Levetiracetam (Keppra) 500 mg PO BID [facility] Last Admin: 10/20/17 17:20 Dose: 500 mg Losartan Potassium (Cozaar) 100 mg PO DAILY [facility] Metoprolol Tartrate (Lopressor) 50 mg PO BRKDIN [facility]PL[facility] Last Admin: 10/20/17 17:19 Dose: 50 mg Mupirocin (Bactroban Ointment) 0 gm TOP BID [facility] Last Admin: 10/20/17 17:19 Dose: 1 applic Nystatin (Nystop Topical Powder) 0 gm TOP Q12 [facility] Last Admin: 10/20/17 22:30 Dose: 1 applic Oxycodone HCl (Oxycodone Immediate Release Tab) 10 mg PO Q6H PRN PRN Reason: Pain, moderate (4-7) Last Admin: 10/21/17 01:35 Dose: 10 mg Pantoprazole Sodium (Protonix Ec Tab) 40 mg PO DAILY [facility] Last Admin: 10/20/17 10:52 Dose: 40 mg Potassium Phos/Sodium Phos (Neutra-Phos) 1 pkt PO DAILY [facility] Zolpidem Tartrate (Ambien) 5 mg PO HS PRN; Protocol PRN Reason: Insomnia - Labs Labs: 10/21/17 06:20 10/21/17 06:20 PT 12.3 SECONDS (9.4-12.5) 10/16/17 06:00 INR 1.07 (0.93-1.08) 10/16/17 06:00 APTT 42.2 Seconds (25.1-36.5) H 10/13/17 15:14 - Constitutional Appears: Chronically Ill - Head Exam Head Exam: NORMAL INSPECTION - Neck Exam Neck Exam: absent: Meningismus - Respiratory Exam Respiratory Exam: Decreased Breath Sounds - Cardiovascular Exam Cardiovascular Exam: +S1, +S2 - GI/Abdominal Exam GI & Abdominal Exam: Soft. absent: Tenderness Assessment and Plan - Assessment and Plan (Free Text) Plan: Assessment Systemic Inflammatory response syndrome, probably due to acute drop in Hgb from left rectus sheath hematoma, so far no evidence of sepsis identified but with new finding of probable severe acute pancreatitis Stage 4 decubitus ulcer history of right lower lobe healthcare-associated pneumonia history of ESBL E. coli and Enterococcus UTI history of ESBL E. coli UTI atrial fibrillation cerebrovascular accident history of aortic dissection seizure disorder history of thrombocytopenia HTN hypercholesterolemia chronic pain syndrome history of decubitus ulcers chronic active hepatitis C Plan reviewed repeat CT A/P which showed increased size of the left sided abdominal hematoma will continue to monitor off antibiotics and observe since she is at risk for nosocomial infections
--- NOTE | 2017-10-22 01:10 | PN ---
DATE: 10/21/2017 PULMONARY PROGRESS NOTE REFERRING PHYSICIAN: Albin Forte MD SUBJECTIVE: Patient is lying in the bed, does not feel well, has dry eyes, daughter is at the bedside, not much cough. No . No nausea. No vomiting. Has ecchymotic area on the right side of the abdomen. No leg pain or leg swelling. PHYSICAL EXAMINATION GENERAL: In no acute distress. VITAL SIGNS: Temperature is 98, heart rate is 76, respiratory rate is 20, blood pressure is 147/90, and pulse ox is 100% on room air. HEENT: Small oral cavity. Crowded airway. NECK: Supple. No JVD. LUNGS: Has fair airflow with rhonchi. HEART: S1 and S2. ABDOMEN: Soft. Some distention. Right side of the abdomen has ecchymotic area. EXTREMITIES: There is no edema. NEUROLOGIC: Awake, alert, follows simple commands. MEDICATIONS: She is on Ambien 5 mg at bedtime p.r.n., hydralazine 10 mg q.i.d. p.r.n., Bactroban ointment to affected area twice a day, Catapres 0.3 mg q. 7 days, Cozaar 100 mg daily, IV fluid D5W 40 mL per hour, Keppra 500 mg twice a day, metoprolol tartrate 50 mg twice a day, Neutra-Phos 1 pack daily, oxycodone immediate release 10 mg q. 6 hours p.r.n., Protonix 40 mg daily, Xanax 0.25 mg 3 times day, Xopenex 0.63 three times a day. LABORATORY DATA: Shows hemoglobin 7.6, hematocrit 23.6, WBC is 4.2, platelets 97. INR 1.16. Sodium 139, potassium 4.0, chloride 114, bicarbonate 22, BUN 10, creatinine 0.5, glucose is 84, calcium is 7.9. AST 33, ALT 30, alk phos is 52, albumin is 2.3. Microbiology: Blood culture, urine culture, there is no growth. CT of the abdomen and pelvis done which showed left abdominal wall and pelvic mass consistent with hematoma which is mildly increased compared to prior study. IMPRESSION AND PLAN: Abdominal wall and pelvic hematoma with anemia, requiring transfusion; pleural effusion; chronic obstructive lung disease; seizure disorder; paroxysmal atrial fibrillation; history of hepatitis C, aortic aneurysm, cirrhotic liver. Case discussed with the patient's daughter who is at the bedside. All the questions answered. Probably at this stage it is better patient off anticoagulation. Follow H and H closely. May send B12, folate, iron studies. Continue bronchodilator. Surgical followup. Thank you and we will follow with you. Anushka Barreto MD
[2017-10-22] MEDS ORDERED: oxyCODONE 10 mg Immediate Release Tab PO STA (03:22)
--- NOTE | 2017-10-22 03:31 | CON ---
DATE: 10/21/2017 This patient was seen and evaluated earlier today. REASON FOR CONSULTATION: Pancreatitis, abdominal pain. 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 The patient was found to have a large hematoma inferiorly into the left pelvis, appeared to be arising from the left rectus sheath. The patient was also coagulopathic, it was corrected. The patient had a repeat CAT scan done because hemoglobin on admission was 5.2, was transfused totally 5 units of packed RBC and 2 units of fresh frozen plasma. Coagulopathy was corrected, but the patient did have a repeat CAT scan done yesterday, which appears to be slightly increased in size of the hematoma and probable pancreatitis, the second inflammatory disease adjacent to the stomach was noticed. GI consult was requested to further evaluate this. This CT finding appear to be new with pancreatitis and also noticed to have an increasing pelvic hematoma. PAST MEDICAL HISTORY: Significant as above, status post CVA with left-sided weakness, history of endovascular graft for aortic aneurysm, history of appendicectomy. EGD done in 09/2017 revealed only hiatus hernia. She had her last colonoscopy in 2012, found to have diverticulosis and hemorrhoids and redundant colon. 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 SOCIAL HISTORY: Ex-smoker. Denies alcohol use. FAMILY HISTORY: Noncontributory. ALLERGIES: PENICILLIN. REVIEW OF SYSTEMS: Positive as above. Poor historian, limited review as per the chart and per the nursing staff discussed. PHYSICAL EXAMINATION: GENERAL: The patient is lying on the bed, not in acute distress. VITAL SIGNS: Temperature is 98.8, pulse 76, blood pressure 147/70, respirations 20 and O2 saturation 100%. HEENT: Atraumatic. Anicteric. NECK: Supple. HEART: S1 and S2 heard. LUNGS: Bilateral air entry present. ABDOMEN: Soft. Guarding present. EXTREMITIES: No cyanosis. No clubbing. No calf tenderness. LABORATORY DATA: Hemoglobin 7.6 and hematocrit 23.6. INR 1.16. AST 33, ALT 30, alkaline phosphatase 52, total bilirubin 1.5. The CT scan of the abdomen and pelvis was reported as new onset of acute pancreatitis and increasing hematoma extending from the left rectus sheath. IMPRESSION: This 76-year-old patient with history of atrial fibrillation status post cerebrovascular accident on Coumadin, was brought to the hospital on 10/13/2017 with lethargy, change of mental status, found to be severely anemic with hemoglobin of 5.2 and elevated INR of 3.3. The patient was transfused totally 5 units of packed red blood cells and 2 units of fresh frozen plasma. Managed conservatively, was found to have slowly drop in blood count to 7.9 today, yesterday was 7.3. The patient had a CT scan done yesterday, which was reviewed showed increasing hematoma and also new onset pancreatitis. IMPRESSION: There was a mild tenderness on the deep palpation of the abdomen, otherwise unremarkable. There is no rebound or guarding. CT scan was reviewed, suggestive of pancreatitis, especially in the head area, but however, the patient's LFT's are essentially unremarkable, except total bilirubin is mildly elevated. This could be from hemolysis. The patient's alkaline phosphatase is normal. The patient did have an ultrasound scan in the past on 10/01/2017 found to have gallbladder sludge, no stones and common bile duct normal at times. 1. This patient has now increasing hematoma. 2. New onset of pancreatitis. The patient's liver function tests normal, alk phos normal. The patient has some sludge. Other comorbidities include COPD, AFib, CVA status post graft, the thoracic aneurysm endovascular repair. RECOMMENDATIONS: Would recommend: 1. Transfuse, close followup of the hemoglobin and hematocrit. 2. Continue PPI. No documented melena or bright red blood per rectum now. 3. Would request for repeat ultrasound scan. 4. Clear liquid diet. Thank you very much for allowing me to participate in the care of the patient. We will continue to closely follow up her care and suggest further management based on the clinical course. Maeve Galindo MD JAMES
[2017-10-22] MEDS: Levalbuterol 0.63 MG/3 ML Inhal Soln UD IH SCH ×3 (07:46→19:48)
[2017-10-22] MEDS: Pantoprazole 40 mg EC Tab PO SCH (10:43)
[2017-10-22] MEDS: Potassium & Sodium Phosphate PO SCH (10:43)
[2017-10-22] MEDS: levETIRAcetam 500 mg/5ml UD cups PO SCH ×2 (10:43→18:46)
[2017-10-22] MEDS: Nystatin 100,000 Units/gm Topical Pow(15 gm) TOP SCH ×3 (10:46→23:00)
[2017-10-22 12:30] LABS: HEMOGLOBIN 10.4 g/dL (12.0-16.0); MEAN CELL VOLUME 90.8 fl (80.0-105.0); MEAN CORPUSCULAR HEMOGLOBIN 30.1 pg (25.0-35.0); MEAN CORPUSCULAR HGB CONC 33.1 g/dl (31.0-37.0); MEAN PLATELET VOLUME 9.3 fl (7.0-11.0); RBC 3.46 10^6/uL (3.5-6.1); WHITE BLOOD COUNT 3.6 10^3/ul (4.5-11.0)
[2017-10-22 12:41] LABS: ALB/GLOB RATIO 0.8 (1.1-1.8); ALBUMIN 2.4 g/dL (3.0-4.8); ALT/SGPT 28 U/L (7-56); AST/SGOT 30 U/L (14-36); BLOOD UREA NITROGEN 10 mg/dL (7-21); CALCIUM 7.8 mg/dL (8.4-10.5); GFR AFRICAN-AMERICAN > 60; GFR NON-AFRICAN AMERICAN > 60; MAGNESIUM 1.6 mg/dL (1.7-2.2)
[2017-10-22 12:45] LABS: INR 1.14 (0.93-1.08); PROTHROMBIN TIME 13.2 SECONDS (9.4-12.5)
--- NOTE | 2017-10-22 13:28 | PN ---
DATE: 10/21/2017 SUBJECTIVE: The patient was seen. She seems stable. No respiratory distress. No pain. The patient had the labs done, and in no apparent distress to the patient and she does not have any complaints. PHYSICAL EXAMINATION: 10/21/2017 is as follows: VITAL SIGNS: Temperature is 97.6, heart rate 71, blood pressure 162/78, respirations 18, and saturation 96%. HEAD AND NECK: Normal. No JVD. No thyromegaly. CHEST: Diminished breath sounds. No wheezing. CARDIAC: First sound and second sound normal, regular. No gallop. No murmurs. ABDOMEN: Seems to have no change. The patient does have some tenderness on the left side and firmness on the abdominal wall with tenderness also on the right side. There is subcutaneous bleeding consistent with possible Barry sign. Bowel sounds intact. EXTREMITIES: Lower extremity examination, the patient has pedal edema, both heels have heel cushions. There is also pillow in between the legs and the patient does not move her lower extremity. Lower extremity power is 0/5. She also has dislocation of her left hip, chronic. NEUROLOGIC: Left hemiplegia, also right leg weakness. She also only moves her right upper extremity, but she is awake, alert. LABORATORY STUDIES: On 10/21/2017, she had sodium 139, potassium 4, chloride 114, bicarbonate 22, BUN 10, and creatinine 0.5. The patient has calcium 7.9, total bilirubin 1.5. Liver function test is normal. She has also hematological workup, which include white count 4.2, hemoglobin 7.9, hematocrit 24.9, platelets is 102. Repeat hemoglobin 7.6. CAT scan of the abdomen was done and it shows in comparison with the previous CT of the abdomen done on the admission first time, it shows heterogenous left abdominal wall and pelvic mass consistent with hematoma, size appears to be increased slightly compare to prior studies; also cirrhosis, splenomegaly, ascites, probable pancreatitis with secondary inflammatory changes in adjacent stomach and small bowel mild ileus, no obstructions, interval increase in the pleural effusion with increased atelectasis or airspace disease. IMPRESSION AND PLAN: 1. Abdominal wall bleeding, increase in size with drop in hemoglobin with some peripancreatic fluid, possible hemorrhagic. We will get GI consult, Dr. Galindo. We will transfuse the patient, packed RBC's. We will get Hematology consult, Dr. Sanchez for evaluation of the bleeding and low platelets and cirrhosis and coagulopathy. The patient off any aspirin or off any Coumadin. The patient did not have any effect yet. We will repeat the labs after transfusion. The patient seen by Surgical team, Dr. Gonzales and surgical residents. We will continue followup on that. 2. Cerebrovascular accident, atrial fibrillation, chronic in nature; history of carotid stenosis, intra-abdominal aortic stent placement. The patient at high risk for any embolic phenomenon or ischemia. We will hold off any anticoagulation because of risk of bleeding, and will see how the patient do. Continue sequential compression devices for both lower extremities for deep vein thrombosis preventions. 3. Hypertension, off Norvasc. We will continue to monitor blood pressure. We will hold off any increase in medication at this time because of the possibility of bleeding and hemodynamic instability. We will monitor her blood pressure and her H and H. 4. Seizure disorder, chronic osteoarthritis, chronic back pain, joints pain, chronic anxiety. Continue Xanax, continue Percocet, continue Keppra. Follow up clinically. 5. Chronic obstructive pulmonary disease, continue nebulizer treatment. We will continue to monitor the patient's condition. Right now, she was seen by Infectious Disease consult, but she is off any antibiotics at this time. Albin Forte MD
[2017-10-22] MEDS ORDERED: Magnesium Sulfate 1 gm in D5W 1 GM/100 ML BAG IVPB ONE (13:49)
--- NOTE | 2017-10-22 14:56 | PN ---
DATE: 10/20/2017 SUBJECTIVE: The patient is on the bed. Daughter next to the bedside. The patient has no complaint. Some bruises on the right side of her abdomen. Otherwise no nausea. No vomiting. No respiratory distress. No chest pain. PHYSICAL EXAMINATION: VITAL SIGNS: On 10/20/2017, temperature is 98.9, heart rate 82, blood pressure 142/74, respirations 18, and saturation 95% on 2 L. HEAD AND NECK: Normal. There is small superficial skin bruise on the neck area. Nontender. No JVD. No thyromegaly. CHEST: Diminished breath sounds, but clear. No wheezing. CARDIAC: First sound and second sound normal. ABDOMEN: By inspection, there is right-sided lumbar area bruise, discoloration, and there is tenderness more on the left side and some firmness on the abdominal wall area. Bowel sounds intact. EXTREMITIES: There is mild edema in the foot area. Both legs have cushions in the heel area. NEUROLOGIC: The patient is alert, awake. She opens her eyes. Responds to calling her names. She moves only her right arm, right hand, otherwise left side hemiplegia and also right leg. She also noted her left hip cannot be moved much because of the left hip dislocation. LABORATORY DATA: At that time on 10/20/2017, laboratory was done and it shows white count 5.9, hemoglobin 9.3, hematocrit 29.1, and platelets 112. The patient also had chemistry, which is done and it shows sodium 144, potassium 4.1, chloride 118, bicarbonate 20, BUN 11, creatinine 0.5, calcium 8.3, magnesium 2, AST 40, ALT and alkaline phosphatase are normal. IMPRESSION AND PLAN: 1. History of bleeding in the abdominal wall, which is possibility that the patient have extension of that bleed that causes discolorations or positive Welton sign, intraabdominal bleed. We will get stat CAT scan of the abdomen. No contrast. We will repeat CBC in the morning. We are also going to get the surgical consult for further evaluation. Discussed with daughter about this possibility and we will proceed with the plan. 2. Hypertension. Continue blood pressure medicine. We will discontinue Norvasc because of history of in the past with that particular medicine, although the pressure seems running stable with that, but we will hold off on that since the patient has some side effects from it. 3. Chronic atrial fibrillation. The patient tried to be on one dose baby aspirin that day, which we discontinued and restarted on 2 mg Coumadin, which should be lower than her usual dose, we discontinue that immediately and we will repeat first lab in the morning, get CT and further recommendation will be done. 4. The patient also have cardiovascular accident, chronic back pain, and chronic anxiety. Continue current medications, which are Xanax and Percocet. 5. Chronic atrial fibrillation. She will be off of any blood thinner with risk of a stroke, risk of ischemic bowel, risk of any embolic phenomenon could happen, she is on high risk for that. We will put SCDs on for deep venous thrombosis prophylaxis. 6. Seizure disorder. Continue Keppra. No seizure activity noted. 7. Anemia. Repeat lab in the morning. She is stable. She is much better than before. Anemia secondary to chronic disease, also secondary to abdominal wall bleed. Continue current medications. Followup clinically. The patient also getting for blood pressure Catapres, Cozaar, hydralazine, and we will get off Norvasc and also clonidine. We will continue current therapy. We will follow up with the metal forger's assistant for blood pressure control. Albin Forte MD
--- NOTE | 2017-10-22 15:29 | CON ---
DATE: 10/22/2017 ORTHOPEDIC CONSULTATION HISTORY OF PRESENT ILLNESS: The patient is a 76-year-old female in room 571, bed 1. She has orthopedic consult ordered for possible brace of her left dislocated hip. The patient is nonambulatory. She has a stroke where she cannot use her lower extremities, however, very limited use of her hands and she has total care at home by 24 x 7, nursing care and home care. The question was that if they could get a brace for her when they turn her to clean her backside to help her left hip that is not functioning and is chronically dislocated with bipolar prosthesis done elsewhere. So, I am going to order an abduction pillow that will facilitate turning the patient side to side when they do have to change her and wipe her backside and this will maintain stability of the dislocated left hip and then it could be removed once she is in her supine position. FINAL DIAGNOSIS: Chronically dislocated left hip prosthesis, no surgery needed as the patient is nonambulatory, no signs of skin breakdown because of the dislocated hip and we will offer her abduction pillow, small, to be applied when she has to be turned side to side for cleaning. Mike Varela DO
--- NOTE | 2017-10-22 15:39 | CP.PCM.PN ---
<Thanh Pathka - Last Filed: 10/22/17 15:34> Subjective - Date & Time of Evaluation Date of Evaluation: 10/22/17 Time of Evaluation: 15:34 - Subjective Subjective: Podiatry Progress Note - Drs. Arteaga/Denita 76 year old female patient seen and evaluated at bedside for left heel wound and right heel DTI. Patient is AAO x 3 and NAD resting comfortably in bed. Denies any new onset pain or acute overnight events and is relatively non- verbal during examination. Denies any new signs or symptoms of infection. Multipodus boots present bilaterally. Denies N/V/F/D/C/SOB/posterior calf pain when squeezed Objective - Vital Signs/Intake and Output Vital Signs (last 24 hours): Temp Pulse Resp BP Pulse Ox 98.8 F 64 20 143/71 99 10/22/17 08:50 10/22/17 13:50 10/22/17 08:50 10/22/17 13:50 10/22/17 08:50 Intake and Output: 10/22/17 10/22/17 06:59 18:59 Intake Total 485 Output Total 800 Balance -315 - Medications Medications: Current Medications Alprazolam (Xanax) 0.25 mg PO TID [facility] PRN Reason: Protocol Stop: 10/26/17 10:01 Last Admin: 10/22/17 13:50 Dose: 0.25 mg Amlodipine Besylate (Norvasc) 10 mg PO DAILY [facility] Clonidine HCl (Catapres-Tts3 0.3 Mg/24 Hr) 1 patch TD Q7D@1000 [facility] Last Admin: 10/16/17 18:09 Dose: 1 patch Hydralazine HCl (Apresoline) 10 mg PO QID PRN PRN Reason: for sbp>160 Last Admin: 10/19/17 06:18 Dose: 10 mg Hydralazine HCl (Apresoline) 100 mg PO TID [facility] Last Admin: 10/22/17 13:50 Dose: 100 mg Dextrose (Dextrose 5% In Water 1000 Ml) 1,000 mls @ 40 mls/hr IV .Q24H [facility] Last Admin: 10/22/17 12:45 Dose: 40 mls/hr Levalbuterol HCl (Xopenex) 0.63 mg IH TIDRESP [facility] Last Admin: 10/22/17 14:27 Dose: 0.63 mg Levetiracetam (Keppra) 500 mg PO BID [facility] Last Admin: 10/22/17 10:43 Dose: 500 mg Losartan Potassium (Cozaar) 100 mg PO DAILY [facility] Last Admin: 10/22/17 10:43 Dose: 100 mg Metoprolol Tartrate (Lopressor) 50 mg PO BRKDIN [facility] Last Admin: 10/22/17 08:41 Dose: 50 mg Mupirocin (Bactroban Ointment) 0 gm TOP BID [facility] Last Admin: 10/22/17 10:48 Dose: 1 applic Nystatin (Nystop Topical Powder) 0 gm TOP Q12 [facility] Last Admin: 10/22/17 10:46 Dose: 1 applic Pantoprazole Sodium (Protonix Ec Tab) 40 mg PO DAILY [facility] Last Admin: 10/22/17 10:43 Dose: 40 mg Potassium Phos/Sodium Phos (Neutra-Phos) 1 pkt PO DAILY [facility] Last Admin: 10/22/17 10:43 Dose: 1 pkt Zolpidem Tartrate (Ambien) 5 mg PO HS PRN; Protocol PRN Reason: Insomnia - Labs Labs: 10/22/17 12:20 10/22/17 12:20 PT 13.2 SECONDS (9.4-12.5) H 10/22/17 12:20 INR 1.14 (0.93-1.08) H 10/22/17 12:20 APTT 42.2 Seconds (25.1-36.5) H 10/13/17 15:14 - Constitutional Appears: Well, Non-toxic, No Acute Distress - Extremities Exam Additional comments: Vasc: DP pulses weakly palpable 1/4 b/l. PT pulses nonpalpable b/l. CFT is delayed x10 digits. Temperature gradient cool to cool b/l. Neuro: gross and protective sensation diminished Derm: Ulceration noted to plantar aspect of left heel secondary to deep tissue injury with surrounding erythema; no sanguinous drainage present and minimal serous drainage noted; no purulence, no malodor, no fluctuance - no clinical signs of infection noted Ecchymossi noted to dorsolateral right foot. Ortho: Tenderness to palpation left plantar heel wound. - Neurological Exam Neurological Exam: Alert, Awake, Oriented x3 - Psychiatric Exam Psychiatric exam: Normal Affect, Normal Mood Assessment and Plan - Assessment and Plan (Free Text) Assessment: 76 year old female with 1) left heel plantar ulceration, 2) left heel posterior DTI, 3) right heel posterior DTI Plan: Patient seen and evaluated at bedside Plan discussed with attending Dr. Arteaga Patient afebrile, absent leukocytosis LE US 10/15/17: Chronic popliteal and tibial DVT Left heel wound dressed with bactroban, optifoam No surgical intervention planned at this time Multipodus boots applied to bilateral feet Podiatry will continue to follow while patient in house <Bettie Arteaga - Last Filed: 10/31/17 16:25> Objective - Vital Signs/Intake and Output Vital Signs (last 24 hours): Temp Pulse Resp BP Pulse Ox 98.2 F 98 H 18 130/64 97 10/30/17 08:16 10/30/17 10:30 10/30/17 08:39 10/30/17 16:17 10/30/17 08:16 - Labs Labs: 10/30/17 05:30 10/30/17 05:30 PT 13.2 SECONDS (9.4-12.5) H 10/22/17 12:20 INR 1.14 (0.93-1.08) H 10/22/17 12:20 APTT 42.2 Seconds (25.1-36.5) H 10/13/17 15:14 Attending/Attestation - Attestation I have personally seen and examined this patient.: Yes I have fully participated in the care of the patient.: Yes I have reviewed all pertinent clinical information, including history, physical exam and plan: Yes
--- NOTE | 2017-10-22 17:15 | CP.PCM.PN ---
Subjective - Date & Time of Evaluation Date of Evaluation: 10/22/17 Time of Evaluation: 12:00 - Subjective Subjective: Comfortable in bed, no fevers. Objective - Vital Signs/Intake and Output Vital Signs (last 24 hours): Temp Pulse Resp BP Pulse Ox 98.8 F 80 20 188/87 H 99 10/22/17 08:50 10/22/17 08:50 10/22/17 08:50 10/22/17 08:50 10/22/17 08:50 Intake and Output: 10/22/17 10/22/17 06:59 18:59 Intake Total 485 Output Total 800 Balance -315 - Medications Medications: Current Medications Alprazolam (Xanax) 0.25 mg PO TID [facility] PRN Reason: Protocol Stop: 10/26/17 10:01 Last Admin: 10/21/17 14:50 Dose: Not Given Clonidine HCl (Catapres-Tts3 0.3 Mg/24 Hr) 1 patch TD Q7D@1000 [facility] Last Admin: 10/16/17 18:09 Dose: 1 patch Hydralazine HCl (Apresoline) 10 mg PO QID PRN PRN Reason: for sbp>160 Last Admin: 10/19/17 06:18 Dose: 10 mg Hydralazine HCl (Apresoline) 100 mg PO TID [facility] Dextrose (Dextrose 5% In Water 1000 Ml) 1,000 mls @ 40 mls/hr IV .Q24H [facility] Last Admin: 10/20/17 17:28 Dose: 40 mls/hr Levalbuterol HCl (Xopenex) 0.63 mg IH TIDRESP [facility] Last Admin: 10/22/17 07:46 Dose: 0.63 mg Levetiracetam (Keppra) 500 mg PO BID [facility] Last Admin: 10/21/17 17:48 Dose: 500 mg Losartan Potassium (Cozaar) 100 mg PO DAILY [facility] Last Admin: 10/21/17 17:48 Dose: 100 mg Metoprolol Tartrate (Lopressor) 50 mg PO BRKDIN [facility] Last Admin: 10/22/17 08:41 Dose: 50 mg Mupirocin (Bactroban Ointment) 0 gm TOP BID [facility] Last Admin: 10/21/17 17:51 Dose: 1 applic Nystatin (Nystop Topical Powder) 0 gm TOP Q12 [facility] Last Admin: 10/21/17 11:00 Dose: 1 applic Pantoprazole Sodium (Protonix Ec Tab) 40 mg PO DAILY [facility] Last Admin: 10/21/17 11:12 Dose: 40 mg Potassium Phos/Sodium Phos (Neutra-Phos) 1 pkt PO DAILY [facility] Last Admin: 10/21/17 11:12 Dose: 1 pkt Zolpidem Tartrate (Ambien) 5 mg PO HS PRN; Protocol PRN Reason: Insomnia - Labs Labs: 10/21/17 10:30 10/21/17 06:20 PT 13.4 SECONDS (9.4-12.5) H 10/21/17 12:40 INR 1.16 (0.93-1.08) H 10/21/17 12:40 APTT 42.2 Seconds (25.1-36.5) H 10/13/17 15:14 - Constitutional Appears: Chronically Ill - Head Exam Head Exam: NORMAL INSPECTION - Neck Exam Neck Exam: absent: Meningismus - Respiratory Exam Respiratory Exam: Decreased Breath Sounds - Cardiovascular Exam Cardiovascular Exam: +S1, +S2 - GI/Abdominal Exam GI & Abdominal Exam: Soft. absent: Tenderness Assessment and Plan - Assessment and Plan (Free Text) Plan: Assessment Systemic Inflammatory response syndrome, probably due to acute drop in Hgb from left rectus sheath hematoma, so far no evidence of sepsis identified but with new finding of probable severe acute pancreatitis Stage 4 decubitus ulcer history of right lower lobe healthcare-associated pneumonia history of ESBL E. coli and Enterococcus UTI history of ESBL E. coli UTI atrial fibrillation cerebrovascular accident history of aortic dissection seizure disorder history of thrombocytopenia HTN hypercholesterolemia chronic pain syndrome history of decubitus ulcers chronic active hepatitis C Plan reviewed repeat CT A/P which showed increased size of the left sided abdominal hematoma will continue to monitor off antibiotics and observe since she is at risk for hospital-acquired infections
--- NOTE | 2017-10-22 18:09 | PN ---
DATE: 10/22/2017 LOCATION: The patient in [facility], bed 1. REASON FOR CONSULTATION AND FOLLOWUP: Paroxysmal atrial fibrillation, rectus sheath hematoma, severe anemia, altered mental status, status post multiple transfusions, old CVA. SUBJECTIVE: The patient is lying flat in bed. No respiratory distress. Denies chest pain. PHYSICAL EXAMINATION: VITAL SIGNS: Blood pressure 143/71 earlier it was 188/87, respirations 20, pulse 50, temperature 98.8. HEENT: Head is normocephalic. Eyes, pupils normal. Conjunctivae slightly pale. NECK: JVP low. Carotids equal. THORAX: AP diameter normal. LUNGS: Clear. CARDIOVASCULAR: S1 and S2. ABDOMEN: Soft. No tenderness. No organomegaly. EXTREMITIES: No clubbing. No cyanosis. LABORATORY DATA: WBC 3.6, hemoglobin 10.4, hematocrit 31.4, platelet 92. Sodium 136, potassium 4.2, BUN 10, creatinine 0.5, random sugar 134, calcium 7.8, phosphorus 3.6, magnesium 1.6. Albumin 2.4, total protein 5.3. DIAGNOSES: Severe protein calorie malnutrition; anemia; thrombocytopenia; leukopenia; rectus sheath hematoma; paroxysmal atrial fibrillation; cerebrovascular accident, old, and was on Coumadin at home. On admission, the patient had a supratherapeutic INR, history of cardiac catheterization, nonobstructive coronary artery disease, history of endovascular stent, history of cerebrovascular accident with contracture on the left side, hypomagnesemia, prothrombin time 30.2, INR 1.14. PLAN: The patient although at high risk for phlebitis as well as also high risk for CVA, but patient at the same time is high risk for bleeding with following hemoglobin and hematocrit, so Coumadin has been withheld that reason because the patient's high risk of bleeding. The patient is on hydralazine 100 mg t.i.d., clonidine 0.3 mg for 24 hours weekly, Cozaar 100 mg daily, Keppra 500 mg b.i.d., metoprolol tartrate 50 mg b.i.d., magnesium sulfate 1 g IV has been already ordered by Dr. Forte for low magnesium, Protonix 40 daily, Xopenex hand nebulizer therapy. We will add amlodipine 10 mg p.o. daily to help the blood pressure as well as vascular status. We will follow with you. Anushka Monroy MD
[2017-10-22] MEDS: oxyCODONE 10 mg Immediate Release Tab PO PRN (18:43)
--- NOTE | 2017-10-22 19:12 | CP.PCM.PN ---
<Devika Ayoub - Last Filed: 10/22/17 19:11> Subjective - Date & Time of Evaluation Date of Evaluation: 10/22/17 Time of Evaluation: 11:25 - Subjective Subjective: Seen and examined at the bedside earlier today, chart review. Patient no reports of nausea, vomiting but does report abdominal pain. No reports of overt GI bleed. Objective - Vital Signs/Intake and Output Vital Signs (last 24 hours): Temp Pulse Resp BP Pulse Ox 98.8 F 81 20 143/64 99 10/22/17 08:50 10/22/17 16:07 10/22/17 08:50 10/22/17 16:13 10/22/17 08:50 Intake and Output: 10/22/17 10/22/17 06:59 18:59 Intake Total 485 Output Total 800 Balance -315 - Medications Medications: Current Medications Alprazolam (Xanax) 0.25 mg PO TID [facility] PRN Reason: Protocol Stop: 10/26/17 10:01 Last Admin: 10/22/17 13:50 Dose: 0.25 mg Amlodipine Besylate (Norvasc) 5 mg PO DAILY [facility] Clonidine HCl (Catapres-Tts3 0.3 Mg/24 Hr) 1 patch TD Q7D@1000 [facility] Last Admin: 10/16/17 18:09 Dose: 1 patch Hydralazine HCl (Apresoline) 10 mg PO QID PRN PRN Reason: for sbp>160 Last Admin: 10/19/17 06:18 Dose: 10 mg Hydralazine HCl (Apresoline) 100 mg PO TID [facility] Last Admin: 10/22/17 13:50 Dose: 100 mg Levalbuterol HCl (Xopenex) 0.63 mg IH TIDRESP [facility] Last Admin: 10/22/17 14:27 Dose: 0.63 mg Levetiracetam (Keppra) 500 mg PO BID [facility] Last Admin: 10/22/17 10:43 Dose: 500 mg Losartan Potassium (Cozaar) 100 mg PO DAILY [facility] Last Admin: 10/22/17 10:43 Dose: 100 mg Metoprolol Tartrate (Lopressor) 50 mg PO BRKDIN [facility] Last Admin: 10/22/17 16:07 Dose: 50 mg Mupirocin (Bactroban Ointment) 0 gm TOP BID [facility] Last Admin: 10/22/17 10:48 Dose: 1 applic Nystatin (Nystop Topical Powder) 0 gm TOP Q12 [facility] Last Admin: 10/22/17 10:46 Dose: 1 applic Oxycodone HCl (Oxycodone Immediate Release Tab) 10 mg PO Q6H PRN PRN Reason: Pain, moderate (4-7) Pantoprazole Sodium (Protonix Ec Tab) 40 mg PO DAILY [facility] Last Admin: 10/22/17 10:43 Dose: 40 mg Potassium Phos/Sodium Phos (Neutra-Phos) 1 pkt PO DAILY [facility] Last Admin: 10/22/17 10:43 Dose: 1 pkt Zolpidem Tartrate (Ambien) 5 mg PO HS PRN; Protocol PRN Reason: Insomnia - Labs Labs: 10/22/17 12:20 10/22/17 12:20 PT 13.2 SECONDS (9.4-12.5) H 10/22/17 12:20 INR 1.14 (0.93-1.08) H 10/22/17 12:20 APTT 42.2 Seconds (25.1-36.5) H 10/13/17 15:14 - Constitutional Appears: No Acute Distress - Eye Exam Eye Exam: Normal appearance. absent: Scleral icterus - ENT Exam ENT Exam: Mucous Membranes Moist - Respiratory Exam Respiratory Exam: NORMAL BREATHING PATTERN. absent: Respiratory Distress - Cardiovascular Exam Cardiovascular Exam: +S1, +S2 - GI/Abdominal Exam GI & Abdominal Exam: Distended, Firm (manily left side of abdomen), Tenderness ( positive generalized tenderness on abdomen right and left no rebound or guarding , abdomen appears distended), Diminished Bowel Sounds. absent: Guarding, Rebound - Extremities Exam Extremities Exam: Pedal Edema - Neurological Exam Neurological Exam: Awake - Skin Skin Exam: Dry, Warm Assessment and Plan - Assessment and Plan (Free Text) Assessment: Assessment: Abdominal pain New-onset pancreatitis Abdominal hematoma H/O Atrial fibrillation CVA Thoracic aneurysm status post endovascular repair COPD Anemia Plan: Trend H&H and transfuse as necessary Continue PPI Monitor for overt GI bleed diet as tolerated Abdominal ultrasound. Seen and discussed with Dr. Son. <Maeve Galindo V - Last Filed: 10/23/17 00:47> Objective - Vital Signs/Intake and Output Vital Signs (last 24 hours): Temp Pulse Resp BP Pulse Ox 99 F 84 20 148/64 95 10/22/17 16:00 10/22/17 18:45 10/22/17 16:00 10/22/17 18:45 10/22/17 16:00 Intake and Output: 10/22/17 10/23/17 18:59 06:59 Intake Total 360 Output Total 200 Balance 160 - Medications Medications: Current Medications Alprazolam (Xanax) 0.25 mg PO TID [facility] PRN Reason: Protocol Stop: 10/26/17 10:01 Last Admin: 10/22/17 18:45 Dose: 0.25 mg Amlodipine Besylate (Norvasc) 5 mg PO DAILY [facility] Clonidine HCl (Catapres-Tts3 0.3 Mg/24 Hr) 1 patch TD Q7D@1000 [facility] Last Admin: 10/16/17 18:09 Dose: 1 patch Hydralazine HCl (Apresoline) 10 mg PO QID PRN PRN Reason: for sbp>160 Last Admin: 10/19/17 06:18 Dose: 10 mg Hydralazine HCl (Apresoline) 100 mg PO TID [facility] Last Admin: 10/22/17 18:45 Dose: 100 mg Levalbuterol HCl (Xopenex) 0.63 mg IH TIDRESP [facility] Last Admin: 10/22/17 19:48 Dose: 0.63 mg Levetiracetam (Keppra) 500 mg PO BID [facility] Last Admin: 10/22/17 18:46 Dose: 500 mg Losartan Potassium (Cozaar) 100 mg PO DAILY [facility] Last Admin: 10/22/17 10:43 Dose: 100 mg Metoprolol Tartrate (Lopressor) 50 mg PO BRKDIN [facility] Last Admin: 10/22/17 16:07 Dose: 50 mg Mupirocin (Bactroban Ointment) 0 gm TOP BID [facility] Last Admin: 10/22/17 18:48 Dose: 1 applic Nystatin (Nystop Topical Powder) 0 gm TOP Q12 [facility] Last Admin: 10/22/17 22:19 Dose: 1 applic Oxycodone HCl (Oxycodone Immediate Release Tab) 10 mg PO Q6H PRN PRN Reason: Pain, moderate (4-7) Last Admin: 10/22/17 18:43 Dose: 10 mg Pantoprazole Sodium (Protonix Ec Tab) 40 mg PO DAILY [facility] Last Admin: 10/22/17 10:43 Dose: 40 mg Potassium Phos/Sodium Phos (Neutra-Phos) 1 pkt PO DAILY [facility] Last Admin: 10/22/17 10:43 Dose: 1 pkt Zolpidem Tartrate (Ambien) 5 mg PO HS PRN; Protocol PRN Reason: Insomnia - Labs Labs: 10/22/17 12:20 10/22/17 12:20 PT 13.2 SECONDS (9.4-12.5) H 10/22/17 12:20 INR 1.14 (0.93-1.08) H 10/22/17 12:20 APTT 42.2 Seconds (25.1-36.5) H 10/13/17 15:14 Attending/Attestation - Attestation I have personally seen and examined this patient.: Yes I have fully participated in the care of the patient.: Yes I have reviewed all pertinent clinical information, including history, physical exam and plan: Yes Notes (Text): This is an addendum to GI progress report dictated by Devika Ayoub APN.The patient was seen and examined earlier. Medical records, lab studies, imagings were reviewed. Last 24 hours events reviewed. Agreed with the above treatment plan as outlined in Devika Ayoub APN's notes the with the addition of the following Abdomen soft Please change the diet to clear liquid diet Repeat pancreatic enzyme We will review the imaging studies with the radiologist Follow-up sono Evaluation 10/23/17 00:46
--- NOTE | 2017-10-22 22:28 | PN ---
DATE: 10/22/2017 SUBJECTIVE: Patient is seen lying in bed. She is groggy, lethargic, she is arousable. She denies any pain. She denies any shortness of breath. PHYSICAL EXAMINATION: GENERAL: Elderly lady, lying in bed. VITAL SIGNS: Blood pressure 142/64, heart rate 81, respiratory rate 20, and temperature 98.8. HEENT: Normocephalic and atraumatic. No pallor. NECK: Supple, no JVD. LUNGS: Bilateral equal entry, bilateral equal expansion. CARDIAC: S1 and S2. Regular rate and rhythm. No murmur and no rub. ABDOMEN: Obese, distended, soft, nontender, and bowel sounds present. EXTREMITIES: 2+ pitting edema of the lower extremities. INTAKE AND OUTPUT: 485/800. LABORATORY DATA: WBC 3.6, hemoglobin 10.4, hematocrit 31, and platelets 92. Sodium 136, potassium 4.2, chloride 110, CO2 of 20, BUN 10, creatinine 0.5, glucose 134, calcium 7.8, phosphorus 3.6, and magnesium 1.6. total bilirubin 1.6, albumin 2.4. Status post 2 units of blood transfusion today. CURRENT MEDICATIONS: Ambien, Apresoline, Catapres patch, losartan 100, D5W at 40, Keppra, Lopressor, Neutra-Phos 1 pack daily, amlodipine 10, Protonix, Xanax. ASSESSMENT AND PLAN: 1. Severe hypertension, blood pressure is very well controlled, discussed with Dr. Forte, patient does not want to be on amlodipine, so therefore, I will decrease amlodipine to 5 mg daily. 2. Discontinue IV fluids, patient appears to be euvolemic, hypervolemic. 3. Intraabdominal bleed, hemoglobin is down to 7, patient some blood exam. 4. increase in hydralazine. 5. Continue Catapres patch. 6. Continue to monitor H and H. Jennifer Berg MD
--- NOTE | 2017-10-23 06:04 | CON ---
DATE: HEMATOLOGY CONSULT This is a Hematology consult, called in by Dr. Forte. I was asked to evaluate and assess the patient as the patient's hemoglobin in the background of intraabdominal bleed has dropped down to 7.6. The patient was on Coumadin, and it has been reversed post blood transfusion and fresh frozen plasma. Despite that, because of worsening bleed, the counts have dropped, she has multiple antibodies, I have been consulted to help with the transfusion. Subjectively, the patient is seen in the room, in the bed. She is staring at the ceiling. She is noncommunicative, appears to be alert and comfortable, though she has lot of ecchymosis on the abdominal wall, on both hands and upper extremities. MEDICATIONS: The patient's medication list was reviewed. She is currently on Ambien, Apresoline, mupirocin, Benadryl, Catapres patch, Losartan, D5W at 50 mL an hour, Keppra, Lopressor, Neutra-Phos, nystatin topical powder, oxycodone p.r.n., Protonix, Solu-Cortef, Tylenol p.r.n., Xanax, and Xopenex. PHYSICAL EXAMINATION VITAL SIGNS: Appear to be stable. Blood pressure is 145/69, pulse is 76, T-max is 98.4, respirations 18, with a pulse oximetry of 96%. HEENT: Head: The patient's head is normocephalic, atraumatic. Conjunctivae pale. Sclerae are anicteric. Examination of the oropharynx, there are no oropharyngeal lesions. Tongue is coated. NECK: Supple. There is no adenopathy. No jugular venous distention noticed. LUNGS: Relatively clear to percussion and auscultation. CARDIOVASCULAR SYSTEM: Reveals S1 and S2 to be normal. No gallop or murmur is heard. ABDOMEN: Soft, mildly distended. Bowel sounds are present. The patient has significant ecchymosis on the abdominal wall. /RECTAL: Positive for an indwelling [place] catheter. EXTREMITIES: Upper extremities reveal so significant ecchymoses in the dorsum of her hand, extending into her forearms. Lower extremities, there is no cyanosis, clubbing, or edema. LAB DATA: Reveals a white count of 4.2, hemoglobin 7.6, platelet count is dropped into the 70s. Chemistry shows a BUN of 10, creatinine of 0.5, sodium is 139, K is 4, chloride is 114 with CO2 of 22, calcium is 7.9 with an albumin of 2.3, corrected to normal, phosphorus is 2.8, magnesium is 1.8, bilirubin is 1.5, and liver enzymes are normal. ASSESSMENT, NOTES, AND PLAN: The patient has multiple antibodies in the blood. We will check at the blood bank and try to transfuse with the least incompatible blood, status post acute renal failure, status post severe intraabdominal bleed secondary to bleeding into the rectus sheath, probably caused by multiple comorbid medical issues including the Coumadin, status post traumatic reasons for the intraabdominal bleed as well. As per the family, the patient may have had an injury prior to her coming to the [facility]. Significant severe anemia related to multiple comorbid medical issues. PLAN: The patient is going to be transfused with 2 units of blood and if necessary, recommended more platelet transfusion. I have spoken to Dr. Forte. I have spoken to the family in great detail. The patient's platelet count has been low in the past because of history of hepatitis C, so I think the current reasons for the drop in her count could be a washout syndrome from the significant bleed and consumption of the platelets. Continue to monitor the patient over the next 48 to 72 hours and manage her conservatively without pushing the envelope. I had discussed my findings in detail with both the daughters who are there at the bedside, answered all their questions to the best of my ability. Time spent with the patient and with the family more than 90 minutes, correlating all the factors and the labs and the findings and what the overall prognosis could be. The patient's prognosis is guarded at best, but still continue aggressive supportive care as outlined. Vandana Sanchez MD
[2017-10-23 06:39] LABS: MEAN CELL VOLUME 91.7 fl (80.0-105.0); MEAN CORPUSCULAR HEMOGLOBIN 30.3 pg (25.0-35.0); MEAN PLATELET VOLUME 9.8 fl (7.0-11.0); RBC 3.63 10^6/uL (3.5-6.1); RED CELL DISTRIBUTION WIDTH 18.7 % (11.5-14.5); WHITE BLOOD COUNT 6.8 10^3/ul (4.5-11.0)
[2017-10-23 07:17] LABS: ALB/GLOB RATIO 0.9 (1.1-1.8); ALBUMIN 2.7 g/dL (3.0-4.8); ALT/SGPT 29 U/L (7-56); AMYLASE 31 U/L (35-125); AST/SGOT 38 U/L (14-36); BLOOD UREA NITROGEN 11 mg/dL (7-21); CALCIUM 8.4 mg/dL (8.4-10.5); GFR AFRICAN-AMERICAN > 60; GFR NON-AFRICAN AMERICAN > 60; LIPASE 81 U/L (23-300); MAGNESIUM 1.8 mg/dL (1.7-2.2)
--- NOTE | 2017-10-23 07:17 | PN ---
DATE: 10/22/2017 REFERRING PHYSICIAN: Albin Forte MD SUBJECTIVE: She is lying in the bed, sleepy, arousable. Not much cough. No sputum production. No nausea. No vomiting. Has mild abdominal pain, ecchymotic area. No leg swelling. OBJECTIVE: GENERAL: In no acute distress. VITAL SIGNS: Temperature is 98, heart rate is 81, respiratory rate is 20, blood pressure 148/64, pulse ox is 95% on nasal cannula. HEENT: Small oral cavity. Crowded airway. NECK: Supple. No JVD. LUNGS: Have fair airflow with rhonchi. HEART: S1 and S2. ABDOMEN: Soft and mildly tender. Right side has ecchymotic area. EXTREMITIES: There is no edema. NEUROLOGIC: Sleepy, arousable. Follows simple commands. MEDICATIONS: She is on Ambien 5 mg at bedtime p.r.n., hydralazine 10 mg q.i.d. p.r.n., also hydralazine 100 mg 3 times a day round the clock, Bactroban to affected area twice a day, Catapres 0.3 mg q.7 days, Cozaar 100 mg daily, Keppra 500 mg twice a day, metoprolol tartarate 50 mg twice a day, potassium K-Phos daily, Norvasc 5 mg daily, nystatin to affected area twice a day, oxycodone immediate release 10 mg q.6 hours p.r.n, Protonix 40 mg daily, Xanax 0.25 mg 3 times a day, Xopenex 0.63 three times a day. LABORATORY DATA: Shows hemoglobin 10.4, hematocrit 31.4, WBC 3.6, platelet is 134. INR 1.14. Sodium 136, potassium 4.2, chloride 110, bicarbonate 29, BUN 10, creatinine 0.5, glucose 134, calcium 7.8, phosphorus is 3.6, magnesium 1.6, AST 30, ALT 28, alkaline phosphatase is 53, albumin is 2.4. Amylase less than 30. Lipase 51. IMPRESSION AND PLAN: Abdominal wall and pelvic hematoma with anemia requiring transfusion, pleural effusion, chronic obstructive lung disease, seizure disorder, paroxysmal atrial fibrillation, history of hepatitis C, aortic aneurysm, cirrhotic liver. From pulmonary point of view, she is doing okay. Keep head at 45 degree. Bronchodilator and aspiration precaution. Careful with sedation. Followup hemoglobin and hematocrit. Continue to hold anticoagulation for now. High risk for thromboembolic disease. Thank you very much and we will follow with you. Anushka Barreto MD Name, [email or web address] (Insert Co-signer name using "Ctrl + Shift + I" window. Delete the co-signature block if not applicable.)
[2017-10-23] MEDS: Levalbuterol 0.63 MG/3 ML Inhal Soln UD IH SCH ×3 (07:54→19:53)
--- NOTE | 2017-10-23 09:18 | US ---
HISTORY: abdominal pain/pancreatitis/hematoma COMPARISON: None. TECHNIQUE: Grayscale imaging was performed. FINDINGS: LIVER: Measures 15.6 cm. There is cirrhosis of the liver. No mass. No intrahepatic bile duct dilatation. GALLBLADDER: There are no gallstones. There is diffuse gallbladder wall thickening secondary to hepatic cirrhosis. COMMON BILE DUCT: Measures 6.2 mm. No stones. No dilatation. PANCREAS: Unremarkable as visualized. No mass. No ductal dilatation. RIGHT KIDNEY: Measures 11.4cm. Diffuse increased echogenicity. No calculus, mass, or hydronephrosis. LEFT KIDNEY: Measures 10.7cm. Diffuse increased echogenicity. No calculus, mass, or hydronephrosis. There is 1.9 x 1.4 x 1.5 cm simple cyst in the upper pole and 1.1 x 1.1 x 1.6 cm simple cyst in the interpolar region. SPLEEN: There is borderline splenomegaly. Normal echotexture. AORTA: No aneurysmal dilatation. IVC: Unremarkable. OTHER FINDINGS: There is moderate abdominal ascites. There are small pleural effusions. IMPRESSION: Cirrhosis of liver and mild splenomegaly. Moderate abdominal ascites. Pleural effusions. Renal parenchymal disease.
[2017-10-23] MEDS: Potassium & Sodium Phosphate PO SCH (09:27)
[2017-10-23] MEDS: levETIRAcetam 500 mg/5ml UD cups PO SCH ×2 (09:28→17:36)
[2017-10-23] MEDS: Pantoprazole 40 mg EC Tab PO SCH (09:28)
[2017-10-23] MEDS: Nystatin 100,000 Units/gm Topical Pow(15 gm) TOP SCH ×2 (09:35→21:26)
--- NOTE | 2017-10-23 09:38 | PN ---
DATE: 10/22/2017 SUBJECTIVE: The patient is stable. No distress. She opened her eyes. Responds to communication, otherwise no distress. PHYSICAL EXAMINATION: VITAL SIGNS: Temperature is 98.8, heart rate 91, blood pressure 155/77, respirations 20, saturation 98% on room air. HEAD AND NECK: Normal. No JVD. No thyromegaly. CHEST: Clear. Diminished breath sounds bilaterally. CARDIAC: First sound and second sound normal. There is no gallop, no rub. May be small systolic murmur. ABDOMEN: Soft, there is tenderness in the mainly left side of the abdomen and pelvic area. Bowel sounds intact. EXTREMITIES: Trace edema. She has a little more in the foot area on both sides. The patient also has heel cushions on both of them and both lower extremities do not move. NEUROLOGIC: As I mentioned, she has paraplegia, left side hemiplegia. She moves her right upper extremity and she is found to recalling her name, and she has difficulty for verbalizations, but she is back to her baseline mental status. LABORATORY STUDIES: As follows, white count 3.6, hemoglobin 10.4, hematocrit 31.4, platelets are 92. Chemistry; sodium 136, potassium 4.2, chloride 110, bicarbonate 20, BUN 10, creatinine 3.5, blood sugar 134 and calcium 7.8, phosphorus 3.6, magnesium 1.6 to 1.7 low, repeated and liver function test is normal. IMPRESSION AND PLAN: 1. Anterior abdominal wall she is bleeding with increase in size compared to previous CT scan, status post transfusions, hemoglobin is up, seems stable. We will repeat CBC in the morning. Surgical consult on the case, Dr. Gonzales team. We will continue followup on that. 2. Possible pancreatitis, peripancreatic fluid, could be from ascites, could be bleeding. Gastrointestinal consult has seen the patient, Dr. Galindo. No candidate for any intervention at this time, was high risk for any intervention especially is on multiple comorbid illnesses. 3. Chronic liver disease, hepatitis C, cirrhosis, splenomegaly, thrombocytopenia. We will follow up on that. No intervention at this time. 4. Anemia, thrombocytopenia. Dr. Sanchez has seen the patient. The patient got transfusions with premedications, did well and her blood count stable, platelets stable, manually done and seems doing well. Will follow up with us. 5. Chronic obstructive pulmonary disease, hypertension. Discussed with Dr. Berg about Norvasc can cause leg swelling, that we will hold off any Norvasc. Continue current therapy. I increased her hydralazine from 50 mg to 100 mg three times a day. We will continue to monitor her blood pressure at this time, and we will consider blood pressure changes if it continues to be significantly high. At this time, continue current therapy. Continue blood pressure medications, inhaled bronchodilators and sequential compression devices for both lower extremities for deep vein thrombosis prophylaxis. 6. Chronic cerebrovascular accident, left side hemiplegia, carotid stenosis, history of abdominal aortic aneurysm, stent placement, bedridden at this time. Discussed with her daughter. She came to the office. Discussed with her in detail about the risks and the critical condition the patient has. She is not a surgical candidate for anything, hopefully bleeding will stop and will go back to her baseline. We will hold off any antiplatelets for at least 1 week, may be more. If no further bleeding happened, we will gradually start the patient on antiplatelets. Then if stable on that, we will start the patient on Coumadin to prevent any further ischemic events to any part of the body, especially the patient has chronic atrial fibrillation, has a history of significant vascular diseases as previous studies done. 7. History of seizure disorder, history of insomnia, chronic osteoarthritis, chronic back pain. We will continue current therapy. We will consider resuming trazodone, Ambien 5 mg. We will consider increasing if the problems the patient go into more of lethargy with this in her critical conditions on this high dose of medications. The patient also on Xanax 0.25 t.i.d. because of the associated anxiety plus on oxycodone for pain control, seems doing well on that. Continue current therapy. Continue current treatment. Followup clinically, and we will get the patient back to trazodone. Continue Keppra 500 b.i.d. Albin Forte MD
--- NOTE | 2017-10-23 11:50 | RAD ---
PROCEDURE: Left Hip X-ray Radiographs. HISTORY: pain COMPARISON: 09/29/2017 FINDINGS: BONES: The pelvic ring is intact. There is diffuse bone demineralization. There is no acute fracture or bone destruction. JOINTS: Status post left hip arthroplasty, there is posterior and superior lateral displacement of the prosthesis including the acetabular cup. There is mild degenerative osteoarthrosis in the right hip joint. SOFT TISSUES: Normal. OTHER FINDINGS: There are bilateral common iliac endovascular stent grafts. IMPRESSION: Status post total left hip arthroplasty, posterior and superior lateral displacement of the 1st thoracic including the acetabular cup. No acute displaced fracture.
[2017-10-23] MEDS: Dextrose 5%/0.45% NS 1,000 ML IV SCH (13:58)
--- NOTE | 2017-10-23 15:02 | CP.PCM.PN ---
<Thanh Pathak - Last Filed: 10/23/17 14:59> Subjective - Date & Time of Evaluation Date of Evaluation: 10/23/17 Time of Evaluation: 14:59 - Subjective Subjective: Podiatry Progress Note - Drs. Arteaga/Denita 76 year old female patient seen and evaluated at bedside for left heel wound and right heel DTI. Patient is AAO x 3 and NAD resting comfortably in bed. Denies any new onset pain or acute overnight events and is non-verbal during examination with eyes closed for majority of visit. Denies any new signs or symptoms of infection. Multipodus boots present bilaterally. Denies N/V/F/D/C/ SOB/posterior calf pain when squeezed Objective - Vital Signs/Intake and Output Vital Signs (last 24 hours): Temp Pulse Resp BP Pulse Ox 99.0 F 80 22 124/66 96 10/23/17 07:30 10/23/17 14:42 10/23/17 07:30 10/23/17 14:42 10/23/17 07:30 Intake and Output: 10/23/17 10/23/17 06:59 18:59 Intake Total 480 Output Total 400 Balance 80 - Medications Medications: Current Medications Alprazolam (Xanax) 0.25 mg PO TID [facility] PRN Reason: Protocol Stop: 10/26/17 10:01 Last Admin: 10/23/17 14:43 Dose: Not Given Clonidine HCl (Catapres-Tts3 0.3 Mg/24 Hr) 1 patch TD Q7D@1000 [facility] Last Admin: 10/23/17 09:35 Dose: 1 patch Hydralazine HCl (Apresoline) 10 mg PO QID PRN PRN Reason: for sbp>160 Last Admin: 10/19/17 06:18 Dose: 10 mg Hydralazine HCl (Apresoline) 100 mg PO TID [facility] Last Admin: 10/23/17 14:42 Dose: 100 mg Dextrose/Sodium Chloride (Dextrose 5%/0.45% Ns 1000 Ml) 1,000 mls @ 60 mls/hr IV .[id number] [facility] Last Admin: 10/23/17 13:58 Dose: 60 mls/hr Levalbuterol HCl (Xopenex) 0.63 mg IH TIDRESP [facility] Last Admin: 10/23/17 13:14 Dose: 0.63 mg Levetiracetam (Keppra) 500 mg PO BID [facility] Last Admin: 10/23/17 09:28 Dose: 500 mg Losartan Potassium (Cozaar) 100 mg PO DAILY [facility] Last Admin: 10/23/17 09:28 Dose: 100 mg Metoprolol Tartrate (Lopressor) 50 mg PO BRKDIN [facility] Last Admin: 10/23/17 09:28 Dose: 50 mg Mupirocin (Bactroban Ointment) 0 gm TOP BID [facility] Last Admin: 10/23/17 10:00 Dose: 1 applic Nystatin (Nystop Topical Powder) 0 gm TOP Q12 [facility] Last Admin: 10/23/17 09:35 Dose: 1 applic Oxycodone HCl (Oxycodone Immediate Release Tab) 10 mg PO Q6H PRN PRN Reason: Pain, moderate (4-7) Last Admin: 10/22/17 18:43 Dose: 10 mg Pantoprazole Sodium (Protonix Ec Tab) 40 mg PO DAILY [facility] Last Admin: 10/23/17 09:28 Dose: 40 mg Potassium Phos/Sodium Phos (Neutra-Phos) 1 pkt PO DAILY [facility] Last Admin: 10/23/17 09:27 Dose: 1 pkt Trazodone HCl (Desyrel) 50 mg PO HS [facility] Zolpidem Tartrate (Ambien) 5 mg PO HS PRN; Protocol PRN Reason: Insomnia - Labs Labs: 10/23/17 06:20 10/23/17 06:20 PT 13.2 SECONDS (9.4-12.5) H 10/22/17 12:20 INR 1.14 (0.93-1.08) H 10/22/17 12:20 APTT 42.2 Seconds (25.1-36.5) H 10/13/17 15:14 - Constitutional Appears: Well, Non-toxic, No Acute Distress - Extremities Exam Additional comments: Vasc: DP pulses weakly palpable 1/4 b/l. PT pulses nonpalpable b/l. CFT is delayed x10 digits. Temperature gradient cool to cool b/l. Neuro: gross and protective sensation diminished Derm: Ulceration noted to plantar aspect of left heel secondary to deep tissue injury with surrounding erythema; no sanguinous drainage present and minimal serous drainage noted; no purulence, no malodor, no fluctuance - no clinical signs of infection noted Ecchymossi noted to dorsolateral right foot- improving Ortho: Tenderness to palpation left plantar heel wound. - Neurological Exam Neurological Exam: Alert, Awake, Oriented x3 - Psychiatric Exam Psychiatric exam: Normal Affect, Normal Mood Assessment and Plan - Assessment and Plan (Free Text) Assessment: 76 year old female with 1) left heel plantar ulceration, 2) left heel posterior DTI, 3) right heel posterior DTI Plan: Patient seen and evaluated at bedside Plan discussed with attending Dr. Arteaga Absent leukocytosis Wound of left heel dressed with bactroban, optifoam Multipodus boots reapplied b/l No plan for surgical intervention at this time Podiatry will continue to follow while patient in house <Bettie Arteaga - Last Filed: 10/31/17 16:32> Objective - Vital Signs/Intake and Output Vital Signs (last 24 hours): Temp Pulse Resp BP Pulse Ox 98.2 F 98 H 18 130/64 97 10/30/17 08:16 10/30/17 10:30 10/30/17 08:39 10/30/17 16:17 10/30/17 08:16 - Labs Labs: 10/30/17 05:30 10/30/17 05:30 PT 13.2 SECONDS (9.4-12.5) H 10/22/17 12:20 INR 1.14 (0.93-1.08) H 10/22/17 12:20 APTT 42.2 Seconds (25.1-36.5) H 10/13/17 15:14 Attending/Attestation - Attestation I have personally seen and examined this patient.: Yes I have fully participated in the care of the patient.: Yes I have reviewed all pertinent clinical information, including history, physical exam and plan: Yes
--- NOTE | 2017-10-23 16:08 | CP.PCM.PN ---
Subjective - Date & Time of Evaluation Date of Evaluation: 10/23/17 Time of Evaluation: 13:05 - Subjective Subjective: Comfortable in bed, no fevers overnight, not in distress. Objective - Vital Signs/Intake and Output Vital Signs (last 24 hours): Temp Pulse Resp BP Pulse Ox 99 F 99 H 20 125/85 95 10/22/17 16:00 10/23/17 09:28 10/22/17 16:00 10/23/17 09:28 10/22/17 16:00 Intake and Output: 10/23/17 10/23/17 06:59 18:59 Intake Total 480 Output Total 400 Balance 80 - Medications Medications: Current Medications Alprazolam (Xanax) 0.25 mg PO TID [facility] PRN Reason: Protocol Stop: 10/26/17 10:01 Last Admin: 10/23/17 09:28 Dose: 0.25 mg Clonidine HCl (Catapres-Tts3 0.3 Mg/24 Hr) 1 patch TD Q7D@1000 [facility] Last Admin: 10/23/17 09:35 Dose: 1 patch Hydralazine HCl (Apresoline) 10 mg PO QID PRN PRN Reason: for sbp>160 Last Admin: 10/19/17 06:18 Dose: 10 mg Hydralazine HCl (Apresoline) 100 mg PO TID [facility] Last Admin: 10/23/17 09:28 Dose: 100 mg Levalbuterol HCl (Xopenex) 0.63 mg IH TIDRESP [facility] Last Admin: 10/23/17 07:54 Dose: Not Given Levetiracetam (Keppra) 500 mg PO BID [facility] Last Admin: 10/23/17 09:28 Dose: 500 mg Losartan Potassium (Cozaar) 100 mg PO DAILY [facility] Last Admin: 10/23/17 09:28 Dose: 100 mg Metoprolol Tartrate (Lopressor) 50 mg PO BRKDIN [facility] Last Admin: 10/23/17 09:28 Dose: 50 mg Mupirocin (Bactroban Ointment) 0 gm TOP BID [facility] Last Admin: 10/22/17 18:48 Dose: 1 applic Nystatin (Nystop Topical Powder) 0 gm TOP Q12 [facility] Last Admin: 10/23/17 09:35 Dose: 1 applic Oxycodone HCl (Oxycodone Immediate Release Tab) 10 mg PO Q6H PRN PRN Reason: Pain, moderate (4-7) Last Admin: 10/22/17 18:43 Dose: 10 mg Pantoprazole Sodium (Protonix Ec Tab) 40 mg PO DAILY [facility] Last Admin: 10/23/17 09:28 Dose: 40 mg Potassium Phos/Sodium Phos (Neutra-Phos) 1 pkt PO DAILY [facility] Last Admin: 10/23/17 09:27 Dose: 1 pkt Trazodone HCl (Desyrel) 50 mg PO HS [facility] Zolpidem Tartrate (Ambien) 5 mg PO HS PRN; Protocol PRN Reason: Insomnia - Labs Labs: 10/23/17 06:20 10/23/17 06:20 PT 13.2 SECONDS (9.4-12.5) H 10/22/17 12:20 INR 1.14 (0.93-1.08) H 10/22/17 12:20 APTT 42.2 Seconds (25.1-36.5) H 10/13/17 15:14 - Constitutional Appears: Non-toxic - Head Exam Head Exam: NORMAL INSPECTION - ENT Exam ENT Exam: Mucous Membranes Moist - Neck Exam Neck Exam: absent: Lymphadenopathy, Meningismus - Respiratory Exam Respiratory Exam: Decreased Breath Sounds - Cardiovascular Exam Cardiovascular Exam: +S1, +S2 - GI/Abdominal Exam GI & Abdominal Exam: Soft. absent: Tenderness Assessment and Plan - Assessment and Plan (Free Text) Plan: Assessment Systemic Inflammatory response syndrome, probably due to acute drop in Hgb from left rectus sheath hematoma, so far no evidence of sepsis identified but with new finding of probable severe acute pancreatitis Stage 4 decubitus ulcer history of right lower lobe healthcare-associated pneumonia history of ESBL E. coli and Enterococcus UTI history of ESBL E. coli UTI atrial fibrillation cerebrovascular accident history of aortic dissection seizure disorder history of thrombocytopenia HTN hypercholesterolemia chronic pain syndrome history of decubitus ulcers chronic active hepatitis C Plan reviewed repeat CT A/P which showed increased size of the left sided abdominal hematoma will continue to monitor off antibiotics and observe since she is at risk for healthcare-associated infections
--- NOTE | 2017-10-23 17:40 | PN ---
DATE: 10/23/2017 SUBJECTIVE: The patient is seen lying in bed. She is lethargic, but arousable. Daughter is at bedside. PHYSICAL EXAMINATION: GENERAL: Elderly lady, lying in bed. VITAL SIGNS: Blood pressure 125/78, heart rate 99, respiratory rate 22, temperature 99, T-max 99.5. HEENT: Normocephalic, atraumatic, positive pallor. NECK: Supple, no JVD. LUNGS: Bilateral equal air entry, bilateral equal expansion. CARDIAC: S1, S2, regular rate rhythm, no murmur, no rub. ABDOMEN: Obese, distended, positive tenderness in the lower abdomen, bowel sounds present. EXTREMITIES: 2+ pitting edema of the lower extremities. INTAKE AND OUTPUT: 480/400. LABORATORY DATA: WBC 6.8, hemoglobin 11, hematocrit 33, platelets 129. Sodium 136, potassium 3.6, chloride 109, CO2 21, BUN 11, creatinine 0.5, glucose 82, calcium 8.4, magnesium 1.8, total bili 1.9, AST 38, ALT 29, albumin 2.7, corrected calcium is 9.2. IMAGING: X-ray, hip and pelvis, no acute displaced fracture. Ultrasound of the abdomen, right kidney 11.4 cm, diffuse echogenicity, left kidney 10.7 cm, cirrhosis of the liver with mild splenomegaly, moderate abdominal ascites, pleural effusions. CURRENT MEDICATIONS: Ambien, hydralazine 100 t.i.d., Catapres patch #3, losartan 100, trazodone 50, D5 half-normal saline at 60, Keppra 500 b.i.d., Lopressor 50 b.i.d., Neutra-Phos, Protonix, Xanax, Xopenex. ASSESSMENT: 1. Intra-abdominal bleeding. 2. Severe anemia. 3. Resolved acute kidney injury. 4. Cirrhosis of the liver, hepatitis C. 5. Thrombocytopenia. 6. Severe hypertension, currently well controlled. 7. Cerebrovascular accident. 8. Seizure disorder. 9. Edema, pleural effusion, ascites. PLAN: 1. Currently blood pressure is well-controlled, continue hydralazine 100 three times a day, Cozaar 100, Catapres patch #3. 2. ?? discontinue IV fluids. 3. Renal parameters are stable. Jennifer Berg MD [facility] # [id number]
--- NOTE | 2017-10-23 20:31 | PN ---
DATE: 10/23/2017 LOCATION: The patient in room 571, bed 1. REASON FOR CONSULTATION AND FOLLOWUP: Paroxysmal atrial fibrillation, rectus sheath hematoma, severe anemia, altered mental status, status post multiple transfusions, old CVA. SUBJECTIVE: Patient is lying comfortably in bed without any shortness of breath. Family at bedside present. Patient looks to be comfortable. PHYSICAL EXAMINATION: VITAL SIGNS: Blood pressure is 166/80, earlier blood pressure was 124/66, respirations 20, pulse 73, temperature 98.3. HEENT: Head is normocephalic. Eyes, pupils normal. Conjunctivae slightly pale. NECK: JVP low. Carotids equal. THORAX: AP diameter normal. LUNGS: Clear. CARDIOVASCULAR: S1 and S2. ABDOMEN: Soft. No organomegaly. Bowels are normal. EXTREMITIES: No clubbing. No cyanosis. LABORATORY DATA: WBC 6.8, hemoglobin 11.0. hematocrit 33.3, platelets 129. Sodium 136, potassium 3.6, BUN 11, creatinine 0.5, random glucose 82, total bilirubin 1.9, AST 38, ALT 29, total protein 5.8, albumin 2.7. DIAGNOSES: Severe protein calorie malnutrition; anemia; thrombocytopenia; rectus sheath hematoma; paroxysmal atrial fibrillation; cerebrovascular accident, old, was on Coumadin at home. On admission, patient had supratherapeutic INR, history of cardiac catheterization, nonobstructive coronary artery disease, history of endovascular stent, history of cerebrovascular accident with contracture on the left side, yesterday prothrombin time 13.2, INR 1.14. PLAN: Patient is at high risk for phlebitis, high risk for bleeding also, high risk for CVA, family at bedside present, they do not want anticoagulation, and they will take their chances with cerebrovascular accident in view of not the patient being anticoagulated. Patient is on hydralazine 100 mg t.i.d., clonidine 0.3 mg for 24 hours patch once a week, Cozaar 100 mg daily, 5% dextrose half-normal saline 60 mL an hour, Keppra 500 mg b.i.d., metoprolol 50 b.i.d., Protonix 40 daily, Xopenex hand nebulizer therapy. We will continue present therapy. We will follow. Anushka Monroy MD [facility] # [id number]
--- NOTE | 2017-10-23 23:52 | PN ---
DATE: 10/23/2017 REFERRING PHYSICIAN: Albin Forte MD. SUBJECTIVE: The patient is lying in the bed, head at 45 degrees. Night was unremarkable. No cough. No sputum production. No nausea. Has some abdominal wall discomfort. Did have a bowel movement. No leg swelling. OBJECTIVE: GENERAL: In no acute distress. VITAL SIGNS: Temperature is 98, heart rate is 73, respiratory rate is 20, blood pressure 166/80, pulse oximetry is 100% on nasal canula. HEENT: Moist mucous membranes. Small oral cavity. NECK: Supple. No JVD. LUNGS: Have a few scattered rhonchi. HEART: S1 and S2. ABDOMEN: Positive bowel sounds. Right side of the abdomen has ecchymotic area. EXTREMITIES: There is no edema. NEUROLOGIC: Awake, alert, and follows simple commands. MEDICATIONS: She is on Ambien 5 mg at bedtime p.r.n., hydralazine 10 mg q.i.d. p.r.n., hydralazine 100 mg 3 times a day round the clock, Catapres 0.3 mg q.7 days, Cozaar 100 mg daily, Trazodone 50 mg at bedtime, Keppra 500 mg twice a day, metoprolol tartrate 50 mg twice a day, Neutra-Phos one pack daily, oxycodone immediate release 10 mg q. 6 hours p.r.n., Protonix 40 mg daily, Xanax 0.25 mg three times a day, and Xopenex 0.63 mg three times a day. LABORATORY DATA: Hemoglobin is 11.0, hematocrit 32.3, WBC 6.8, and platelet is 129. Sodium 136, potassium 3.6, chloride 109, bicarbonate 21, BUN 11, creatinine 0.5. Glucose is 82, calcium is 8.4, total bilirubin 1.9, ALT 29, alkaline phosphatase is 64, albumin is 2.7, amylase is 31, lipase is 81. Has a hip and pelvic x-ray done which shows status post total left hip arthroplasty, posterior and superior lateral displacement of the first thoracic including the acetabular cuff, no acute displacement fracture. Also had an ultrasound of the abdomen done which shows cirrhotic liver, mild splenomegaly, moderate abdominal ascites, pleural effusion, renal parenchymal disease. IMPRESSION AND PLAN: Abdominal wall and pelvic hematoma with anemia requiring transfusion, pleural effusion, chronic obstructive lung disease, seizure disorder, paroxysmal atrial fibrillation, history of hepatitis C, aortic aneurysm, and cirrhotic liver. Pulmonary point of view, doing okay. Keep head at 45 degrees. Bronchodilator, aspiration precaution, may have a component of sleep apnea syndrome, refusing to use CPAP. Followup H and H. May not be able to anticoagulate because of life-threatening bleed. Thank you, and we will follow with you. Anushka Barreto MD
--- NOTE | 2017-10-24 02:41 | PN ---
DATE: 10/23/2017 LOCATION: This is [facility] visit on the medical floor. For Dr. Sanchez. SUBJECTIVE: The patient is a 76-year-old female, seen lying awake in bed, reporting that she has some discomfort to her sacral area as her only complaint. She is, otherwise, not responding to other questioning except for pain. She reports that the sacral area is causing some discomfort. The patient is now being followed by Dr. Sanchez due to significant drop in her hemoglobin due to possible intraabdominal bleed with transfusion with good effect. The patient is now in no acute distress, resting comfortably. Her past history is significant for CVA history with the patient being bed ridden, thrombocytopenia, hypertension, chronic hepatitis C, on Coumadin for atrial fibrillation which is now being held. She also had an aortic aneurysm with stent replacement history. OBJECTIVE AND PHYSICAL EXAMINATION: VITAL SIGNS: Temperature 98.3, pulse 80, respirations 20, blood pressure 166/80, and pulse ox 100%. HEENT: Unremarkable. NECK: Supple. HEART: Regular rate. LUNGS: Minimal decreased breath sounds at the bases. Poor effort. ABDOMEN: Soft, nondistended, nontender with ecchymotic changes to the abdominal wall, possibly secondary to injections. EXTREMITIES: No edema. Bush catheter noted. NEUROLOGIC: She is awake with the patient appearing lethargic and responds to questions sluggishly. SKIN: Otherwise, warm and dry. The sacrum was not inspected at this time with the patient reporting sacral discomfort. LABORATORY DATA: The patient's labs were done. White blood cell count of 6.8, hemoglobin of 11.0, up from 7.6 two days prior, after she was then transfused with a platelet count of 129,000, up from 97,000 two days prior. Her chem panel shows a normal chem panel with a T. bili of 1.9, AST of 39 with an otherwise normal chem metabolic panel. Her INR yesterday was 1.14. Stool for occult blood was negative today. ASSESSMENT: For this patient is that of mainly thrombocytopenia status post transfusion, hepatitis C history, chronic liver disease, cirrhosis with splenomegaly, chronic obstructive pulmonary disease, hypertension, history of cerebrovascular accident, history of seizure disorder with systemic inflammatory response syndrome with left rectus sheath hematoma with no further bleeding? Also, stage IV decubitus ulcer history,atrial fibrillation, history of aortic dissection, chronic pain. Patient had x-ray of the hips and pelvis earlier today. The x-ray was read as status post total left hip arthroplasty, posterior, superior, lateral displacement of the first thoracic including acetabular cup. No acute displaced fracture. She had an abdominal ultrasound done earlier today. It was read as cirrhosis of the liver, mild splenomegaly, moderate abdominal ascites, pleural effusions, renal parenchymal disease. The plan for this patient after conversation with Dr. Sanchez is to not restart Coumadin for now, also no aspirin for at least 1 week's time. Repeat, no Coumadin for now with no aspirin for at least 1 week's time. Also, recommend to watch the patient for approximately 72 hours before any consideration for transfer to a rehab facility or to home off the medical floor as the patient appears to be stable with her anemic indices at present. We will also recommend a donut pad for the patient should be taken out of bed to the chair with physiotherapy as indicated once it is possible with treatment for her decubiti as per solutions delivery consultant's recommendations. PROGNOSIS: For this patient is guarded. We will monitor clinically with labs as indicated. Rudy Cervantes MD
--- NOTE | 2017-10-24 04:36 | PN ---
DATE: 10/23/2017 SUBJECTIVE: This patient was seen and evaluated earlier. Discussed with the nursing staff. The patient lying comfortable, not in any acute distress. PHYSICAL EXAMINATION: GENERAL: The patient is afebrile. VITAL SIGNS: Blood pressure 156/80, respirations 20, heart rate 73. HEENT: Atraumatic. Anicteric. NECK: Supple. HEART: S1 and S2 heard. LUNGS: Bilateral air entry present. ABDOMEN: Soft. Right side of the abdomen has some ecchymotic area; and rotated hip, left side. EXTREMITIES: No cyanosis. No clubbing. LABORATORY DATA: Hemoglobin 11, hematocrit 33.3, WBC 6.8, platelets 129. Chemistries showed total bilirubin 1.9, AST 38, ALT 29, and alkaline phosphatase 64. Amylase and lipase normal. IMPRESSION: This 76-year-old patient with atrial fibrillation, cerebrovascular accident, admitted with change in mental status, lethargy, found to have a large hematoma. Followup CT scan showed increase in size of the hematoma and also suspect of the acute pancreatitis. Pancreatic enzymes are normal, and the patient did have an ultrasound scan of the abdomen done. It showed no gallstones and mild thickening of the gallbladder. The patient does appear to have some haziness around the pancreas. The pancreatitis is reported to be involving mainly in the pancreatic head area. RECOMMENDATIONS: Clear liquid diet. We will consider repeating the CAT scan after further review with the radiologist to follow up the hematoma and also the pancreatitis. We will advance the diet after review of the repeat CT. Thank you very much for allowing me to participate in the care of the patient. Patient . Maeve Galindo MD
[2017-10-24 07:31] LABS: HEMOGLOBIN 10.8 g/dL (12.0-16.0); MEAN CELL VOLUME 90.8 fl (80.0-105.0); MEAN PLATELET VOLUME 9.5 fl (7.0-11.0); RBC 3.6 10^6/uL (3.5-6.1); RED CELL DISTRIBUTION WIDTH 18.4 % (11.5-14.5); WHITE BLOOD COUNT 5.7 10^3/ul (4.5-11.0)
[2017-10-24] MEDS: Levalbuterol 0.63 MG/3 ML Inhal Soln UD IH SCH ×3 (07:39→22:30)
[2017-10-24 07:45] LABS: ALB/GLOB RATIO 0.8 (1.1-1.8); ALBUMIN 2.6 g/dL (3.0-4.8); ALT/SGPT 31 U/L (7-56); AST/SGOT 44 U/L (14-36); BLOOD UREA NITROGEN 8 mg/dL (7-21); GFR AFRICAN-AMERICAN > 60; GFR NON-AFRICAN AMERICAN > 60
[2017-10-24] MEDS: Dextrose 5%/0.45% NS 1,000 ML IV SCH (07:58)
--- NOTE | 2017-10-24 09:27 | CP.PCM.CON ---
History of Present Illness - History of Present Illness History of Present Illness: Palliative consult requested by Dr Linus Forte Reason: Goals of care 76 year old female with history of PAT, UTI, seizure disorder, CHF who presented with altered mental status. Found to have abdominal tenderness and severe anemia, HGB 5.2. CT of abdomen which showed rectus sheath hematoma. The patient denied chest pain, shortness of breath,nausea,vomiting. PMHX: CHF, CAD,aortic dissection s/p endovascular stent placment,valvular disease,anemia,CVA, PAT, UTI ,GI bleed ,seizure disorder. Social History Non smoker, no alcohol or drug mirlande. Lives with daughter Paula. Family History: Non contributory. Advance Care Planning: The patient has A Living Will. She is DNR/DNI. Her daughter Paula Gamez is health care surrogate. Review of Systems: As per HPI, Past Patient History - Infectious Disease Hx of Infectious Diseases: None - Tetanus Immunizations Tetanus Immunization: Unknown - Past Social History Smoking Status: Never Smoked - CARDIAC Hx Cardiac Disorders: Yes Hx Congestive Heart Failure: Yes Hx Hypertension: Yes - PULMONARY Hx Respiratory Disorders: Yes Hx Pneumonia: Yes - NEUROLOGICAL HX Cerebrovascular Accident: Yes - HEENT Hx HEENT Problems: No - RENAL Hx Chronic Kidney Disease: No - ENDOCRINE/METABOLIC Hx Endocrine Disorders: No - HEMATOLOGICAL/ONCOLOGICAL Hx Blood Disorders: Yes Hx Anemia: Yes Hx Hepatitis C: Yes - INTEGUMENTARY Hx Dermatological Problems: No - MUSCULOSKELETAL/RHEUMATOLOGICAL Hx Falls: Yes - GASTROINTESTINAL Hx Gastrointestinal Disorders: Yes (aspiration precaution.Pureed diet.) - GENITOURINARY/GYNECOLOGICAL Hx Genitourinary Disorders: Yes (uti,incontinent,ARF) Hx Reproductive Disorders: No - PSYCHIATRIC Hx Psychophysiologic Disorder: No Hx Substance Use: No - SURGICAL HISTORY Hx Appendectomy: Yes Hx Cardiac Catheterization: Yes Hx Coronary Stent: Yes Hx Orthopedic Surgery: Yes ("right hip hemiarthroplasty") - ANESTHESIA Hx Anesthesia: Yes Hx Anesthesia Reactions: No Hx Malignant Hyperthermia: No Meds Allergies/Adverse Reactions: Allergies Allergy/AdvReac Type Severity Reaction Status Date / Time Penicillins AdvReac Intermediate RASH Verified 10/04/17 17:22 - Medications Medications: Current Medications Alprazolam (Xanax) 0.25 mg PO TID [facility] PRN Reason: Protocol Stop: 10/26/17 10:01 Last Admin: 10/23/17 17:36 Dose: 0.25 mg Clonidine HCl (Catapres-Tts3 0.3 Mg/24 Hr) 1 patch TD Q7D@1000 COUNTS [facility]CLUDE 234 BEDS AT THE [facility] Last Admin: 10/23/17 09:35 Dose: 1 patch Hydralazine HCl (Apresoline) 10 mg PO QID PRN PRN Reason: for sbp>160 Last Admin: 10/19/17 06:18 Dose: 10 mg Hydralazine HCl (Apresoline) 100 mg PO TID COUNTS INCLUDE 234 BEDS AT THE [facility] Last Admin: 10/23/17 17:36 Dose: 100 mg Dextrose/Sodium Chloride (Dextrose 5%/0.45% Ns 1000 Ml) 1,000 mls @ 60 mls/hr IV .[id number] COUNTS INCLUDE 234 BEDS AT THE [facility] Last Admin: 10/24/17 07:58 Dose: 60 mls/hr Levalbuterol HCl (Xopenex) 0.63 mg IH TIDRESP COUNTS INCLUDE 234 BEDS AT THE [facility] Last Admin: 10/24/17 07:39 Dose: 0.63 mg Levetiracetam (Keppra) 500 mg PO BID COUNTS INCLUDE 234 BEDS AT THE [facility] Last Admin: 10/23/17 17:36 Dose: 500 mg Losartan Potassium (Cozaar) 100 mg PO DAILY COUNTS INCLUDE 234 BEDS AT THE [facility] Last Admin: 10/23/17 09:28 Dose: 100 mg Metoprolol Tartrate (Lopressor) 50 mg PO BRKDIN COUNTS INCLUDE 234 BEDS AT THE [facility] Last Admin: 10/24/17 07:58 Dose: 50 mg Mupirocin (Bactroban Ointment) 0 gm TOP BID COUNTS INCLUDE 234 BEDS AT THE [facility] Last Admin: 10/23/17 17:36 Dose: 1 applic Nystatin (Nystop Topical Powder) 0 gm TOP Q12 COUNTS INCLUDE 234 BEDS AT THE [facility] Last Admin: 10/23/17 21:26 Dose: 1 applic Oxycodone HCl (Oxycodone Immediate Release Tab) 10 mg PO Q6H PRN PRN Reason: Pain, moderate (4-7) Last Admin: 10/22/17 18:43 Dose: 10 mg Pantoprazole Sodium (Protonix Ec Tab) 40 mg PO DAILY COUNTS INCLUDE 234 BEDS AT THE [facility] Last Admin: 10/23/17 09:28 Dose: 40 mg Potassium Phos/Sodium Phos (Neutra-Phos) 1 pkt PO DAILY COUNTS INCLUDE 234 BEDS AT THE [facility] Last Admin: 10/23/17 09:27 Dose: 1 pkt Trazodone HCl (Desyrel) 50 mg PO HS COUNTS INCLUDE 234 BEDS AT THE [facility] Last Admin: 10/23/17 21:27 Dose: 50 mg Zolpidem Tartrate (Ambien) 5 mg PO HS PRN; Protocol PRN Reason: Insomnia Physical Exam - Constitutional Appears: Cachectic, Chronically Ill - Eye Exam Eye Exam: Normal appearance, PERRL - ENT Exam ENT Exam: Mucous Membranes Moist - Neck Exam Neck exam: Positive for: Normal Inspection - Respiratory Exam Respiratory Exam: Decreased Breath Sounds, NORMAL BREATHING PATTERN - Cardiovascular Exam Cardiovascular Exam: Irregular Rhythm, +S1, +S2 - GI/Abdominal Exam GI & Abdominal Exam: Normal Bowel Sounds, Tenderness - Back Exam Back exam: NORMAL INSPECTION Additional comments: resolving right sacral hematoma - Skin Skin Exam: Pallor - Additional Findings Additional findings: palliative performance scale rating 30 % Results - Vital Signs Recent Vital Signs: Last Vital Signs Temp 98.3 F 10/24/17 08:00 Pulse 76 10/24/17 08:00 Resp 18 10/24/17 08:00 BP 161/66 H 10/24/17 08:00 Pulse Ox 97 10/24/17 08:00 - Labs Result Diagrams: 10/24/17 07:20 10/24/17 07:20 Labs: Laboratory Results - last 24 hr 10/23/17 10/24/17 10/24/17 13:20 07:20 07:20 WBC 5.7 RBC 3.60 Hgb 10.8 L Hct 32.7 L MCV 90.8 MCH 30.0 MCHC 33.0 RDW 18.4 H Plt Count 103 L MPV 9.5 Sodium 136 Potassium 3.2 L Chloride 110 H Carbon Dioxide 21 Anion Gap 9 L BUN 8 Creatinine 0.5 L Est GFR ( Amer) > 60 Est GFR (Non-Af Amer) > 60 Random Glucose 87 Calcium 8.0 L Total Bilirubin 1.7 H AST 44 H ALT 31 Alkaline Phosphatase 63 Total Protein 5.7 L Albumin 2.6 L Globulin 3.1 Albumin/Globulin Ratio 0.8 L Stool Occult Blood Negative Assessment & Plan - Assessment and Plan (Free Text) Assessment: 76 year old female with extensive mediaeval history (see PMH) who is admitted with hemorrhagic shock which has since resolved, anemia, sepsis, rectus sheath hematoma. Will arrange family meeting with patients daughter, intent to discuss goals of care and options for discharge. Plan: Palliative support in establishing goals of care and advance care planning.
[2017-10-24] MEDS: levETIRAcetam 500 mg/5ml UD cups PO SCH ×2 (09:42→17:10)
[2017-10-24] MEDS: oxyCODONE 10 mg Immediate Release Tab PO PRN ×2 (09:42→18:13)
[2017-10-24] MEDS ORDERED: Potassium Chloride 20 mEq ER Tab PO ONE (09:42)
[2017-10-24] MEDS: Pantoprazole 40 mg EC Tab PO SCH (09:42)
[2017-10-24] MEDS: Potassium & Sodium Phosphate PO SCH (09:42)
[2017-10-24] MEDS: Nystatin 100,000 Units/gm Topical Pow(15 gm) TOP SCH ×2 (09:43→21:15)
[2017-10-24] MEDS ORDERED: Magnesium Sulfate 1 gm in D5W 1 GM/100 ML BAG IVPB ONE (11:36)
--- NOTE | 2017-10-24 13:52 | CP.PCM.PN ---
<Devika Ayoub - Last Filed: 10/24/17 13:52> Subjective - Date & Time of Evaluation Date of Evaluation: 10/24/17 Time of Evaluation: 10:10 - Subjective Subjective: Seen and examined at the bedside earlier today, awake alert and verbal does complain of abdominal discomfort mostly to the left side no reports of nausea, vomiting, fever or chills. No reports of any diarrhea or overt GI bleed.patient had abdominal ultrasound yesterdayshows ascites and moderate cirrhosis, pleural effusion. Patient also had a hip/pelvis x-ray which shows posterior superior lateral displacement, no acute fracture Objective - Vital Signs/Intake and Output Vital Signs (last 24 hours): Temp Pulse Resp BP Pulse Ox 98.3 F 76 18 155/88 H 97 10/24/17 08:00 10/24/17 08:00 10/24/17 08:00 10/24/17 12:59 10/24/17 08:00 Intake and Output: 10/24/17 10/24/17 06:59 18:59 Intake Total 0 Output Total 400 Balance -400 - Medications Medications: Current Medications Alprazolam (Xanax) 0.25 mg PO TID [facility] PRN Reason: Protocol Stop: 10/26/17 10:01 Last Admin: 10/24/17 09:42 Dose: 0.25 mg Clonidine HCl (Catapres-Tts3 0.3 Mg/24 Hr) 1 patch TD Q7D@1000 [facility] Last Admin: 10/23/17 09:35 Dose: 1 patch Hydralazine HCl (Apresoline) 10 mg PO QID PRN PRN Reason: for sbp>160 Last Admin: 10/19/17 06:18 Dose: 10 mg Hydralazine HCl (Apresoline) 100 mg PO TID [facility] Last Admin: 10/24/17 12:59 Dose: 100 mg Dextrose/Sodium Chloride (Dextrose 5%/0.45% Ns 1000 Ml) 1,000 mls @ 60 mls/hr IV .[id number] [facility] Last Admin: 10/24/17 07:58 Dose: 60 mls/hr Levalbuterol HCl (Xopenex) 0.63 mg IH TIDRESP [facility] Last Admin: 10/24/17 13:28 Dose: 0.63 mg Levetiracetam (Keppra) 500 mg PO BID [facility] Last Admin: 10/24/17 09:42 Dose: 500 mg Losartan Potassium (Cozaar) 100 mg PO DAILY [facility] Last Admin: 10/24/17 09:42 Dose: 100 mg Metoprolol Tartrate (Lopressor) 50 mg PO BRKDIN [facility] Last Admin: 10/24/17 07:58 Dose: 50 mg Mupirocin (Bactroban Ointment) 0 gm TOP BID [facility] Last Admin: 10/24/17 09:43 Dose: 1 applic Nystatin (Nystop Topical Powder) 0 gm TOP Q12 [facility] Last Admin: 10/24/17 09:43 Dose: 1 applic Oxycodone HCl (Oxycodone Immediate Release Tab) 10 mg PO Q6H PRN PRN Reason: Pain, moderate (4-7) Last Admin: 10/24/17 09:42 Dose: 10 mg Pantoprazole Sodium (Protonix Ec Tab) 40 mg PO DAILY [facility] Last Admin: 10/24/17 09:42 Dose: 40 mg Potassium Phos/Sodium Phos (Neutra-Phos) 1 pkt PO DAILY [facility] Last Admin: 10/24/17 09:42 Dose: 1 pkt Trazodone HCl (Desyrel) 50 mg PO HS [facility] Last Admin: 10/23/17 21:27 Dose: 50 mg Zolpidem Tartrate (Ambien) 5 mg PO HS PRN; Protocol PRN Reason: Insomnia - Labs Labs: 10/24/17 07:20 10/24/17 07:20 PT 13.2 SECONDS (9.4-12.5) H 10/22/17 12:20 INR 1.14 (0.93-1.08) H 10/22/17 12:20 APTT 42.2 Seconds (25.1-36.5) H 10/13/17 15:14 - Constitutional Appears: No Acute Distress - Eye Exam Eye Exam: Normal appearance. absent: Scleral icterus - ENT Exam ENT Exam: Mucous Membranes Moist - Respiratory Exam Respiratory Exam: NORMAL BREATHING PATTERN. absent: Respiratory Distress - Cardiovascular Exam Cardiovascular Exam: +S1, +S2 - GI/Abdominal Exam GI & Abdominal Exam: Distended, Soft, Tenderness (left quadrant and firm, history of hematoma), Normal Bowel Sounds. absent: Guarding, Rebound - Extremities Exam Extremities Exam: Pedal Edema. absent: Calf Tenderness - Neurological Exam Neurological Exam: Alert, Awake, Oriented x3 Assessment and Plan - Assessment and Plan (Free Text) Assessment: Assessment: Abdominal pain New-onset pancreatitis Abdominal hematoma H/O Atrial fibrillation CVA Thoracic aneurysm status post endovascular repair COPD Anemia Plan: Trend H&H and transfuse as necessary Continue PPI Monitor for overt GI bleed diet as tolerated, currently on clear liquid review CT scan with radiology Seen and discussed with Dr. Son. <Maeve Galindo V - Last Filed: 10/24/17 20:47> Objective - Vital Signs/Intake and Output Vital Signs (last 24 hours): Temp Pulse Resp BP Pulse Ox 98.2 F 80 20 120/72 94 L 10/24/17 15:57 10/24/17 15:57 10/24/17 15:57 10/24/17 15:57 10/24/17 15:57 Intake and Output: 10/24/17 10/25/17 18:59 06:59 Intake Total 570 Output Total 450 Balance 120 - Medications Medications: Current Medications Alprazolam (Xanax) 0.25 mg PO TID [facility] PRN Reason: Protocol Stop: 10/26/17 10:01 Last Admin: 10/24/17 17:07 Dose: 0.25 mg Clonidine HCl (Catapres-Tts3 0.3 Mg/24 Hr) 1 patch TD Q7D@1000 [facility] Last Admin: 10/23/17 09:35 Dose: 1 patch Hydralazine HCl (Apresoline) 10 mg PO QID PRN PRN Reason: for sbp>160 Last Admin: 10/19/17 06:18 Dose: 10 mg Hydralazine HCl (Apresoline) 100 mg PO TID [facility] Last Admin: 10/24/17 17:07 Dose: 100 mg Dextrose/Sodium Chloride (Dextrose 5%/0.45% Ns 1000 Ml) 1,000 mls @ 60 mls/hr IV .[id number] [facility] Last Admin: 10/24/17 18:05 Dose: 60 mls/hr Levalbuterol HCl (Xopenex) 0.63 mg IH TIDRESP [facility] Last Admin: 10/24/17 13:28 Dose: 0.63 mg Levetiracetam (Keppra) 500 mg PO BID [facility] Last Admin: 10/24/17 17:10 Dose: 500 mg Losartan Potassium (Cozaar) 100 mg PO DAILY [facility] Last Admin: 10/24/17 09:42 Dose: 100 mg Metoprolol Tartrate (Lopressor) 50 mg PO BRKDIN [facility] Last Admin: 10/24/17 17:07 Dose: 50 mg Mirtazapine (Remeron) 15 mg PO HS [facility] Mupirocin (Bactroban Ointment) 0 gm TOP BID [facility] Last Admin: 10/24/17 17:07 Dose: 1 applic Nystatin (Nystop Topical Powder) 0 gm TOP Q12 [facility] Last Admin: 10/24/17 09:43 Dose: 1 applic Oxycodone HCl (Oxycodone Immediate Release Tab) 10 mg PO Q6H PRN PRN Reason: Pain, moderate (4-7) Last Admin: 10/24/17 18:13 Dose: 10 mg Pantoprazole Sodium (Protonix Ec Tab) 40 mg PO DAILY [facility] Last Admin: 10/24/17 09:42 Dose: 40 mg Potassium Phos/Sodium Phos (Neutra-Phos) 1 pkt PO DAILY [facility] Last Admin: 10/24/17 09:42 Dose: 1 pkt Trazodone HCl (Desyrel) 50 mg PO HS [facility] Last Admin: 10/23/17 21:27 Dose: 50 mg Zolpidem Tartrate (Ambien) 5 mg PO HS PRN; Protocol PRN Reason: Insomnia - Labs Labs: 10/24/17 07:20 10/24/17 07:20 PT 13.2 SECONDS (9.4-12.5) H 10/22/17 12:20 INR 1.14 (0.93-1.08) H 10/22/17 12:20 APTT 42.2 Seconds (25.1-36.5) H 10/13/17 15:14 Attending/Attestation - Attestation I have personally seen and examined this patient.: Yes I have fully participated in the care of the patient.: Yes I have reviewed all pertinent clinical information, including history, physical exam and plan: Yes Notes (Text): This is an addendum to GI progress report dictated by Devika Ayoub APN.The patient was seen and examined earlier. Medical records, lab studies, imagings were reviewed. Last 24 hours events reviewed. Agreed with the above treatment plan as outlined in Devika Ayoub APN's notes the with the addition of the following Imaging studies reviewed with the radiologist Dr Wooten No significant difference. Questionable pancreatitis Enzymes normal Would repeat this is CT to follow-up pancreatitis and hematoma 10/24/17 20:34
--- NOTE | 2017-10-24 13:58 | PN ---
DATE: 10/24/2017 LOCATION: The patient is in room 571, bed 1. REASON FOR CONSULTATION AND FOLLOWUP: Paroxysmal atrial fibrillation, rectus sheath hematoma, severe anemia, altered mental status, status post multiple transfusions, and old CVA. SUBJECTIVE: The patient lying flat in bed, answered question by shaking her head. Denies any shortness of breath or chest pain. The patient seemed to be lying comfortably. PHYSICAL EXAMINATION: VITAL SIGNS: Blood pressure 161/66, respirations 18, pulse 76, and temperature 98.3. HEENT: Head is normocephalic. Eyes: Pupils normal. Conjunctivas slightly pale. NECK: JVP low. Carotids equal. THORAX: AP diameter normal. LUNGS: Clear. CARDIOVASCULAR: S1 and S2. ABDOMEN: Soft. No organomegaly. EXTREMITIES: No clubbing or cyanosis. LABORATORY DATA: WBC 5.7, hemoglobin 10.8, hematocrit 32.7, and platelets 103. Sodium 136, potassium 3.2, BUN 8, and creatinine 0.5. Bilirubin 1.7, AST 44, ALT 31, total protein 5.7, albumin 2.6, and magnesium 1.6. DIAGNOSES: Severe protein-creatinine malnutrition, anemia, thrombocytopenia, rectus sheath hematoma, paroxysmal atrial fibrillation, cerebrovascular accident old, the patient was on Coumadin at home, had multiple blood transfusions. On admission the patient had supratherapeutic INR, history of cardiac catheterization, nonobstructive coronary artery disease, history of endovascular stent, history of old cerebrovascular accident with contracture on the left side, hypokalemia, and hypomagnesemia. PLAN: We will give magnesium. We will potassium supplement therapy. We will repeat labs in the morning. Family decided against anticoagulation because of bleeding. They understand all the risks and possibility of CVA. The patient on clonidine 0.3 mg/24-hour patch once a week, losartan [address] Forte ordered potassium 20 mEq today also magnesium sulfate. IV has been ordered by Dr. Henderson. The patient is also getting phosphorus, potassium, sodium, and Neutra-Phos one packet daily. We will follow. Anushka Monroy MD [facility] # [id number]
--- NOTE | 2017-10-24 14:29 | CP.PCM.PN ---
Subjective - Date & Time of Evaluation Date of Evaluation: 10/24/17 Time of Evaluation: 12:35 - Subjective Subjective: Comfortable, no fevers, not in distress, no diarrhea. Objective - Vital Signs/Intake and Output Vital Signs (last 24 hours): Temp Pulse Resp BP Pulse Ox 98.3 F 76 18 161/66 H 97 10/24/17 08:00 10/24/17 08:00 10/24/17 08:00 10/24/17 08:00 10/24/17 08:00 Intake and Output: 10/24/17 10/24/17 06:59 18:59 Intake Total 0 Output Total 400 Balance -400 - Medications Medications: Current Medications Alprazolam (Xanax) 0.25 mg PO TID [facility] PRN Reason: Protocol Stop: 10/26/17 10:01 Last Admin: 10/24/17 09:42 Dose: 0.25 mg Clonidine HCl (Catapres-Tts3 0.3 Mg/24 Hr) 1 patch TD Q7D@1000 [facility] Last Admin: 10/23/17 09:35 Dose: 1 patch Hydralazine HCl (Apresoline) 10 mg PO QID PRN PRN Reason: for sbp>160 Last Admin: 10/19/17 06:18 Dose: 10 mg Hydralazine HCl (Apresoline) 100 mg PO TID [facility] Last Admin: 10/24/17 09:42 Dose: 100 mg Dextrose/Sodium Chloride (Dextrose 5%/0.45% Ns 1000 Ml) 1,000 mls @ 60 mls/hr IV .[id number] [facility] Last Admin: 10/24/17 07:58 Dose: 60 mls/hr Levalbuterol HCl (Xopenex) 0.63 mg IH TIDRESP [facility] Last Admin: 10/24/17 07:39 Dose: 0.63 mg Levetiracetam (Keppra) 500 mg PO BID [facility] Last Admin: 10/24/17 09:42 Dose: 500 mg Losartan Potassium (Cozaar) 100 mg PO DAILY [facility] Last Admin: 10/24/17 09:42 Dose: 100 mg Metoprolol Tartrate (Lopressor) 50 mg PO BRKDIN [facility] Last Admin: 10/24/17 07:58 Dose: 50 mg Mupirocin (Bactroban Ointment) 0 gm TOP BID [facility] Last Admin: 10/24/17 09:43 Dose: 1 applic Nystatin (Nystop Topical Powder) 0 gm TOP Q12 [facility] Last Admin: 10/24/17 09:43 Dose: 1 applic Oxycodone HCl (Oxycodone Immediate Release Tab) 10 mg PO Q6H PRN PRN Reason: Pain, moderate (4-7) Last Admin: 10/24/17 09:42 Dose: 10 mg Pantoprazole Sodium (Protonix Ec Tab) 40 mg PO DAILY [facility] Last Admin: 10/24/17 09:42 Dose: 40 mg Potassium Phos/Sodium Phos (Neutra-Phos) 1 pkt PO DAILY [facility] Last Admin: 10/24/17 09:42 Dose: 1 pkt Trazodone HCl (Desyrel) 50 mg PO HS [facility] Last Admin: 10/23/17 21:27 Dose: 50 mg Zolpidem Tartrate (Ambien) 5 mg PO HS PRN; Protocol PRN Reason: Insomnia - Labs Labs: 10/24/17 07:20 10/24/17 07:20 PT 13.2 SECONDS (9.4-12.5) H 10/22/17 12:20 INR 1.14 (0.93-1.08) H 10/22/17 12:20 APTT 42.2 Seconds (25.1-36.5) H 10/13/17 15:14 - Constitutional Appears: Chronically Ill - Head Exam Head Exam: NORMAL INSPECTION - Respiratory Exam Respiratory Exam: Decreased Breath Sounds - Cardiovascular Exam Cardiovascular Exam: +S1, +S2 - GI/Abdominal Exam GI & Abdominal Exam: Soft. absent: Tenderness Assessment and Plan - Assessment and Plan (Free Text) Plan: Assessment Systemic Inflammatory response syndrome, probably due to acute drop in Hgb from left rectus sheath hematoma, so far no evidence of sepsis identified but with new finding of probable acute pancreatitis (mostly in the pancreatic head area) Stage 4 decubitus ulcer history of right lower lobe healthcare-associated pneumonia history of ESBL E. coli and Enterococcus UTI history of ESBL E. coli UTI atrial fibrillation cerebrovascular accident history of aortic dissection seizure disorder history of thrombocytopenia HTN hypercholesterolemia chronic pain syndrome history of decubitus ulcers chronic active hepatitis C Plan reviewed repeat CT A/P which showed increased size of the left sided abdominal hematoma will continue to monitor off antibiotics and observe since she is at risk for nosocomial infections GI following for acute pancreatitis
--- NOTE | 2017-10-24 15:10 | PN ---
DATE: 10/24/2017 SUBJECTIVE: The patient is seen lying in bed. She is lethargic, but arousable. PHYSICAL EXAMINATION: GENERAL: Elderly lying in bed. VITAL SIGNS: Blood pressure 155/88, heart rate 76, respiratory rate 18, and temperature 98.3. HEENT: Normocephalic, atraumatic. NECK: Supple, no JVD. LUNGS: Bilateral equal air entry, no rales. CARDIAC: S1 and S2. Regular rate and rhythm, no murmur, no rub. ABDOMEN: Obese, distended, soft, nontender, bowel sounds present. EXTREMITIES: 2+ pitting edema of the lower extremities. INTAKE AND OUTPUT: 300/700. LABORATORY DATA: WBC 5.7, hemoglobin 10.8, hematocrit 32.7, and platelets 103. Sodium 136, potassium 3.2, chloride 110, CO2 21, BUN 8, creatinine 0.5, glucose 87, calcium 8.0, magnesium 1.6, total bili 1.7, AST 44, ALT 31, and albumin 2.6. CURRENT MEDICATIONS: Ambien, hydralazine 100 t.i.d., Catapres patch #3, losartan 100, trazodone 50, potassium 20 mEq given this morning, Keppra 500 b.i.d., Lopressor 50 b.i.d., magnesium sulfate 1 g given this morning, and Neutra-Phos one pack daily. ASSESSMENT: 1. Resolved acute kidney injury. 2. Hypokalemia. 3. Intraabdominal bleed. 4. Hypertension. 5. History of seizure. 6. Cirrhosis of the liver/hepatitis C/thrombocytopenia. 7. History of cerebrovascular accident. PLAN: 1. Discontinue IV fluids. 2. Replace potassium and magnesium. 3. Continue Neutra-Phos. 4. Monitor electrolytes. Jennifer Berg MD
[2017-10-24] MEDS ORDERED: Dextrose 5%/0.45% NS 1,000 ML IV SCH (17:47)
--- NOTE | 2017-10-24 18:29 | CP.PCM.PN ---
<Thanh Pathak - Last Filed: 10/24/17 18:25> Subjective - Date & Time of Evaluation Date of Evaluation: 10/24/17 Time of Evaluation: 18:26 - Subjective Subjective: Podiatry Progress Note - Drs. Arteaga/Denita 76 year old female patient seen and evaluated at bedside for left heel wound and right heel DTI. Patient is AAO x 3 and NAD resting comfortably in bed. Denies any new onset pain or acute overnight events to lower extremity. Does state that she is having some pain in her "rear end". Per nursing patient is negative for sacral ulceration. Denies any new signs or symptoms of infection. Multipodus boots present bilaterally. Denies N/V/F/D/C/SOB/posterior calf pain when squeezed Objective - Vital Signs/Intake and Output Vital Signs (last 24 hours): Temp Pulse Resp BP Pulse Ox 98.2 F 80 20 120/72 94 L 10/24/17 15:57 10/24/17 15:57 10/24/17 15:57 10/24/17 15:57 10/24/17 15:57 Intake and Output: 10/24/17 10/24/17 06:59 18:59 Intake Total 0 570 Output Total 400 450 Balance -400 120 - Medications Medications: Current Medications Alprazolam (Xanax) 0.25 mg PO TID [facility] PRN Reason: Protocol Stop: 10/26/17 10:01 Last Admin: 10/24/17 17:07 Dose: 0.25 mg Clonidine HCl (Catapres-Tts3 0.3 Mg/24 Hr) 1 patch TD Q7D@1000 [facility] Last Admin: 10/23/17 09:35 Dose: 1 patch Hydralazine HCl (Apresoline) 10 mg PO QID PRN PRN Reason: for sbp>160 Last Admin: 10/19/17 06:18 Dose: 10 mg Hydralazine HCl (Apresoline) 100 mg PO TID [facility] Last Admin: 10/24/17 17:07 Dose: 100 mg Dextrose/Sodium Chloride (Dextrose 5%/0.45% Ns 1000 Ml) 1,000 mls @ 60 mls/hr IV .[id number] [facility] Last Admin: 10/24/17 18:05 Dose: 60 mls/hr Levalbuterol HCl (Xopenex) 0.63 mg IH TIDRESP [facility] Last Admin: 10/24/17 13:28 Dose: 0.63 mg Levetiracetam (Keppra) 500 mg PO BID [facility] Last Admin: 10/24/17 17:10 Dose: 500 mg Losartan Potassium (Cozaar) 100 mg PO DAILY [facility] Last Admin: 10/24/17 09:42 Dose: 100 mg Metoprolol Tartrate (Lopressor) 50 mg PO BRKDIN [facility] Last Admin: 10/24/17 17:07 Dose: 50 mg Mirtazapine (Remeron) 15 mg PO HS [facility] Mupirocin (Bactroban Ointment) 0 gm TOP BID [facility] Last Admin: 10/24/17 17:07 Dose: 1 applic Nystatin (Nystop Topical Powder) 0 gm TOP Q12 [facility] Last Admin: 10/24/17 09:43 Dose: 1 applic Oxycodone HCl (Oxycodone Immediate Release Tab) 10 mg PO Q6H PRN PRN Reason: Pain, moderate (4-7) Last Admin: 10/24/17 18:13 Dose: 10 mg Pantoprazole Sodium (Protonix Ec Tab) 40 mg PO DAILY [facility] Last Admin: 10/24/17 09:42 Dose: 40 mg Potassium Phos/Sodium Phos (Neutra-Phos) 1 pkt PO DAILY [facility] Last Admin: 10/24/17 09:42 Dose: 1 pkt Trazodone HCl (Desyrel) 50 mg PO HS [facility] Last Admin: 10/23/17 21:27 Dose: 50 mg Zolpidem Tartrate (Ambien) 5 mg PO HS PRN; Protocol PRN Reason: Insomnia - Labs Labs: 10/24/17 07:20 10/24/17 07:20 PT 13.2 SECONDS (9.4-12.5) H 10/22/17 12:20 INR 1.14 (0.93-1.08) H 10/22/17 12:20 APTT 42.2 Seconds (25.1-36.5) H 10/13/17 15:14 - Constitutional Appears: Well, Non-toxic, No Acute Distress - Extremities Exam Additional comments: Vasc: DP pulses weakly palpable 1/4 b/l. PT pulses nonpalpable b/l. CFT is delayed x10 digits. Temperature gradient cool to cool b/l. Neuro: gross and protective sensation diminished Derm: Ulceration noted to plantar aspect of left heel secondary to deep tissue injury with surrounding erythema; no sanguinous drainage present and minimal serous drainage noted; no purulence, no malodor, no fluctuance - no clinical signs of infection noted Ecchymossi noted to dorsolateral right foot- improving Ortho: Tenderness to palpation left plantar heel wound. - Neurological Exam Neurological Exam: Alert, Awake, Oriented x3 - Psychiatric Exam Psychiatric exam: Normal Affect, Normal Mood Assessment and Plan - Assessment and Plan (Free Text) Assessment: 76 year old female with 1) left heel plantar ulceration, 2) left heel posterior DTI, 3) right heel posterior DTI Plan: Patient seen and evaluated at bedside Plan discussed with attending Dr. Barger Afebrile, absent leukocytosis Wound dressed with bactroban and optifoam Multipodus boot reapplied Podiatry will continue to follow while patient is in house <Richard Barger - Last Filed: 10/25/17 08:32> Objective - Vital Signs/Intake and Output Vital Signs (last 24 hours): Temp Pulse Resp BP Pulse Ox 98.2 F 80 20 120/72 94 L 10/24/17 15:57 10/24/17 15:57 10/24/17 15:57 10/24/17 15:57 10/24/17 15:57 Intake and Output: 10/25/17 10/25/17 06:59 18:59 Intake Total 240 Output Total 125 Balance 115 - Medications Medications: Current Medications Alprazolam (Xanax) 0.25 mg PO TID [facility] PRN Reason: Protocol Stop: 10/26/17 10:01 Last Admin: 10/24/17 17:07 Dose: 0.25 mg Clonidine HCl (Catapres-Tts3 0.3 Mg/24 Hr) 1 patch TD Q7D@1000 [facility] Last Admin: 10/23/17 09:35 Dose: 1 patch Hydralazine HCl (Apresoline) 10 mg PO QID PRN PRN Reason: for sbp>160 Last Admin: 10/19/17 06:18 Dose: 10 mg Hydralazine HCl (Apresoline) 100 mg PO TID [facility] Last Admin: 10/24/17 17:07 Dose: 100 mg Potassium Chloride 20 meq/ (Dextrose/Sodium Chloride) 1,010 mls @ 60 mls/hr IV .[id number] [facility] Levalbuterol HCl (Xopenex) 0.63 mg IH TIDRESP [facility] Last Admin: 10/25/17 08:24 Dose: 0.63 mg Levetiracetam (Keppra) 500 mg PO BID [facility] Last Admin: 10/24/17 17:10 Dose: 500 mg Losartan Potassium (Cozaar) 100 mg PO DAILY [facility] Last Admin: 10/24/17 09:42 Dose: 100 mg Metoprolol Tartrate (Lopressor) 50 mg PO BRKDIN [facility] Last Admin: 10/24/17 17:07 Dose: 50 mg Mirtazapine (Remeron) 15 mg PO HS [facility] Last Admin: 10/24/17 21:14 Dose: 15 mg Mupirocin (Bactroban Ointment) 0 gm TOP BID [facility] Last Admin: 10/24/17 17:07 Dose: 1 applic Nystatin (Nystop Topical Powder) 0 gm TOP Q12 [facility] Last Admin: 10/24/17 21:15 Dose: 1 applic Oxycodone HCl (Oxycodone Immediate Release Tab) 10 mg PO Q6H PRN PRN Reason: Pain, moderate (4-7) Last Admin: 10/24/17 18:13 Dose: 10 mg Pantoprazole Sodium (Protonix Ec Tab) 40 mg PO DAILY [facility] Last Admin: 10/24/17 09:42 Dose: 40 mg Potassium Phos/Sodium Phos (Neutra-Phos) 1 pkt PO DAILY [facility] Last Admin: 10/24/17 09:42 Dose: 1 pkt Trazodone HCl (Desyrel) 50 mg PO HS [facility] Last Admin: 10/24/17 21:14 Dose: 50 mg Zolpidem Tartrate (Ambien) 5 mg PO HS PRN; Protocol PRN Reason: Insomnia - Labs Labs: 10/25/17 05:45 10/25/17 05:45 PT 13.2 SECONDS (9.4-12.5) H 10/22/17 12:20 INR 1.14 (0.93-1.08) H 10/22/17 12:20 APTT 42.2 Seconds (25.1-36.5) H 10/13/17 15:14 Attending/Attestation - Attestation I have personally seen and examined this patient.: Yes I have fully participated in the care of the patient.: Yes I have reviewed all pertinent clinical information, including history, physical exam and plan: Yes
--- NOTE | 2017-10-25 00:36 | PN ---
DATE: 10/24/2017 PULMONARY PROGRESS NOTE REFERRING PHYSICIAN: Dr. Forte SUBJECTIVE: The patient is lying in the bed, head at 45 degrees. Night was unremarkable. No cough. No sputum production. No nausea. No vomiting. Still has abdominal discomfort, ecchymotic area in the right quadrant. No leg swelling. OBJECTIVE: GENERAL: In no acute distress. VITAL SIGNS: Temperature is 98, heart rate is 80, respiratory rate is 20, blood pressure is 120/72, pulse oximetry is 94% on room air. HEENT: Moist mucous membranes. Small oral cavity. NECK: Supple. No JVD. LUNGS: Have a fair airflow with few rhonchi. HEART: S1 and S2. ABDOMEN: Soft. Positive tenderness, ecchymotic area on the right side of the abdomen. EXTREMITIES: There is no edema. NEUROLOGIC: Awake, alert, follows simple commands. LABORATORY DATA: Shows hemoglobin 10.8, hematocrit 32.7, WBC 5.7, platelet is 103. Sodium 136, potassium 3.2, chloride 110, bicarbonate 21, BUN 8, creatinine 0.5, glucose 87, calcium 8.0, magnesium 1.6, AST 44, ALT 31, alk phos 63, albumin 2.6, amylase 31, lipase 81. IMPRESSION AND PLAN: Abdominal wall and pelvic hematoma with anemia requiring transfusion, pleural effusion, chronic obstructive lung disease, seizure disorder, paroxysmal atrial fibrillation, history of hepatitis C, aortic aneurysm, cirrhotic liver. From pulmonary point of view, continue bronchodilator. Keep head at 45 degrees. Aspiration precaution, gastric prophylaxis, off anticoagulation. High risk for thromboembolic disease. Followup CBC and CMP in the morning. Thank you and we will follow with you. Anushka Barreto MD
[2017-10-25 06:51] LABS: ALB/GLOB RATIO 0.9 (1.1-1.8); ALBUMIN 2.6 g/dL (3.0-4.8); ALT/SGPT 33 U/L (7-56); AST/SGOT 45 U/L (14-36); BLOOD UREA NITROGEN 6 mg/dL (7-21); CALCIUM 8.2 mg/dL (8.4-10.5); GFR AFRICAN-AMERICAN > 60; GFR NON-AFRICAN AMERICAN > 60; MAGNESIUM 1.7 mg/dL (1.7-2.2)
[2017-10-25 07:34] LABS: HEMOGLOBIN 11.1 g/dL (12.0-16.0); MEAN CELL VOLUME 93.4 fl (80.0-105.0); MEAN CORPUSCULAR HEMOGLOBIN 30.3 pg (25.0-35.0); MEAN CORPUSCULAR HGB CONC 32.5 g/dl (31.0-37.0); MEAN PLATELET VOLUME 10.3 fl (7.0-11.0); RBC 3.66 10^6/uL (3.5-6.1); RED CELL DISTRIBUTION WIDTH 18.6 % (11.5-14.5); WHITE BLOOD COUNT 6.6 10^3/ul (4.5-11.0)
[2017-10-25] MEDS ORDERED: Potassium Chloride 20 mEq ER Tab PO ONE (07:58)
[2017-10-25] MEDS: Levalbuterol 0.63 MG/3 ML Inhal Soln UD IH SCH ×3 (08:24→19:30)
[2017-10-25] MEDS: Nystatin 100,000 Units/gm Topical Pow(15 gm) TOP SCH ×2 (10:30→22:23)
[2017-10-25] MEDS: Potassium & Sodium Phosphate PO SCH (10:30)
[2017-10-25] MEDS: Pantoprazole 40 mg EC Tab PO SCH (10:30)
[2017-10-25] MEDS: levETIRAcetam 500 mg/5ml UD cups PO SCH ×2 (10:30→18:58)
--- NOTE | 2017-10-25 10:47 | CP.PCM.PN ---
<Audie Reyes - Last Filed: 10/25/17 10:48> Subjective - Date & Time of Evaluation Date of Evaluation: 10/25/17 Time of Evaluation: 10:45 - Subjective Subjective: Podiatry Progress Note - Drs. Arteaga/Denita 76 year old female patient seen and evaluated at bedside for left heel wound and right heel DTI. Patient is AAO x 3 and NAD resting comfortably in bed. Denies any new onset pain or acute overnight events to lower extremity. . Denies any new signs or symptoms of infection. Multipodus boots present bilaterally. Denies N/V/F/D/C/SOB/posterior calf pain when squeezed Objective - Vital Signs/Intake and Output Vital Signs (last 24 hours): Temp Pulse Resp BP Pulse Ox 98.1 F 75 20 140/69 94 L 10/25/17 08:49 10/25/17 08:49 10/25/17 08:49 10/25/17 08:49 10/25/17 08:49 Intake and Output: 10/25/17 10/25/17 06:59 18:59 Intake Total 240 Output Total 125 Balance 115 - Medications Medications: Current Medications Alprazolam (Xanax) 0.25 mg PO TID [facility] PRN Reason: Protocol Stop: 10/26/17 10:01 Last Admin: 10/24/17 17:07 Dose: 0.25 mg Clonidine HCl (Catapres-Tts3 0.3 Mg/24 Hr) 1 patch TD Q7D@1000 [facility] Last Admin: 10/23/17 09:35 Dose: 1 patch Hydralazine HCl (Apresoline) 10 mg PO QID PRN PRN Reason: for sbp>160 Last Admin: 10/19/17 06:18 Dose: 10 mg Hydralazine HCl (Apresoline) 100 mg PO TID [facility] Last Admin: 10/24/17 17:07 Dose: 100 mg Potassium Chloride 20 meq/ (Dextrose/Sodium Chloride) 1,010 mls @ 60 mls/hr IV .[id number] [facility] Potassium Chloride (Potassium Chloride 10 Meq/100 Ml) 10 meq in 100 mls @ 50 mls/hr IVPB ONCE ONE Stop: 10/25/17 11:41 Levalbuterol HCl (Xopenex) 0.63 mg IH TIDRESP [facility] Last Admin: 10/25/17 08:24 Dose: 0.63 mg Levetiracetam (Keppra) 500 mg PO BID [facility] Last Admin: 10/24/17 17:10 Dose: 500 mg Losartan Potassium (Cozaar) 100 mg PO DAILY [facility] Last Admin: 10/24/17 09:42 Dose: 100 mg Metoprolol Tartrate (Lopressor) 50 mg PO BRKDIN [facility] Last Admin: 10/24/17 17:07 Dose: 50 mg Mirtazapine (Remeron) 15 mg PO HS [facility] Last Admin: 10/24/17 21:14 Dose: 15 mg Mupirocin (Bactroban Ointment) 0 gm TOP BID [facility] Last Admin: 10/24/17 17:07 Dose: 1 applic Nystatin (Nystop Topical Powder) 0 gm TOP Q12 [facility] Last Admin: 10/24/17 21:15 Dose: 1 applic Oxycodone HCl (Oxycodone Immediate Release Tab) 10 mg PO Q6H PRN PRN Reason: Pain, moderate (4-7) Last Admin: 10/24/17 18:13 Dose: 10 mg Pantoprazole Sodium (Protonix Ec Tab) 40 mg PO DAILY [facility] Last Admin: 10/24/17 09:42 Dose: 40 mg Potassium Phos/Sodium Phos (Neutra-Phos) 1 pkt PO DAILY [facility] Last Admin: 10/24/17 09:42 Dose: 1 pkt Trazodone HCl (Desyrel) 50 mg PO [facility] Last Admin: 10/24/17 21:14 Dose: 50 mg Zolpidem Tartrate (Ambien) 5 mg PO HS PRN; Protocol PRN Reason: Insomnia - Labs Labs: 10/25/17 05:45 10/25/17 05:45 PT 13.2 SECONDS (9.4-12.5) H 10/22/17 12:20 INR 1.14 (0.93-1.08) H 10/22/17 12:20 APTT 42.2 Seconds (25.1-36.5) H 10/13/17 15:14 - Constitutional Appears: Well, Non-toxic, No Acute Distress - Extremities Exam Additional comments: Vasc: DP pulses weakly palpable 1/4 b/l. PT pulses nonpalpable b/l. CFT is delayed x10 digits. Temperature gradient cool to cool b/l. Neuro: gross and protective sensation diminished Derm: Ulceration noted to plantar aspect of left heel secondary to deep tissue injury with surrounding erythema; no sanguinous drainage present and minimal serous drainage noted; no purulence, no malodor, no fluctuance - no clinical signs of infection noted Ecchymossi noted to dorsolateral right foot- improving Ortho: Tenderness to palpation left plantar heel wound. - Neurological Exam Neurological Exam: Alert, Awake Assessment and Plan - Assessment and Plan (Free Text) Assessment: 76 year old female with 1) left heel plantar ulceration, 2) left heel posterior DTI, 3) right heel posterior DTI Plan: Patient seen and evaluated at bedside Plan discussed with attending Dr. Barger Afebrile, absent leukocytosis Wound dressed with bactroban and optifoam Multipodus boot reapplied Podiatry will continue to follow while patient is in house <Richard Barger - Last Filed: 10/28/17 12:05> Objective - Vital Signs/Intake and Output Vital Signs (last 24 hours): Temp Pulse Resp BP Pulse Ox 98.1 F 70 18 173/74 H 97 10/28/17 08:00 10/28/17 10:31 10/28/17 08:00 10/28/17 10:31 10/28/17 08:00 Intake and Output: 10/28/17 10/28/17 06:59 18:59 Intake Total 60 Output Total 500 Balance -440 - Medications Medications: Current Medications Clonidine HCl (Catapres-Tts3 0.3 Mg/24 Hr) 1 patch TD Q7D@1000 [facility] Last Admin: 10/23/17 09:35 Dose: 1 patch Hydralazine HCl (Apresoline) 10 mg PO QID PRN PRN Reason: for sbp>160 Last Admin: 10/19/17 06:18 Dose: 10 mg Hydralazine HCl (Apresoline) 100 mg PO TID [facility] Last Admin: 10/28/17 10:31 Dose: 100 mg Potassium Chloride/Dextrose/Sod Cl (Potassium Chl 20 Meq In D5-1/2ns) 1,000 mls @ 40 mls/hr IV .Q24H [facility] Last Admin: 10/27/17 22:24 Dose: 40 mls/hr Levalbuterol HCl (Xopenex) 0.63 mg IH TIDRESP [facility] Last Admin: 10/28/17 07:25 Dose: 0.63 mg Levetiracetam (Keppra) 500 mg PO BID [facility] Last Admin: 10/28/17 10:31 Dose: 500 mg Losartan Potassium (Cozaar) 100 mg PO DAILY [facility] Last Admin: 10/28/17 10:31 Dose: 100 mg Magnesium Oxide (Mag-Ox) 400 mg PO BID [facility] Last Admin: 10/28/17 10:31 Dose: 400 mg Metoprolol Tartrate (Lopressor) 50 mg PO BRKDIN [facility] Last Admin: 10/28/17 08:26 Dose: 50 mg Mirtazapine (Remeron) 15 mg PO HS [facility] Last Admin: 10/27/17 23:30 Dose: 15 mg Mupirocin (Bactroban Ointment) 0 gm TOP BID [facility] Last Admin: 10/28/17 10:40 Dose: 1 applic Pantoprazole Sodium (Protonix Ec Tab) 40 mg PO DAILY [facility] Last Admin: 10/28/17 10:31 Dose: 40 mg Potassium Phos/Sodium Phos (Neutra-Phos) 1 pkt PO DAILY [facility] Last Admin: 10/28/17 10:31 Dose: 1 pkt Trazodone HCl (Desyrel) 50 mg PO HS [facility] Last Admin: 10/27/17 22:04 Dose: 50 mg Zolpidem Tartrate (Ambien) 5 mg PO HS PRN; Protocol PRN Reason: Insomnia Last Admin: 10/27/17 22:04 Dose: 5 mg - Labs Labs: 10/27/17 06:30 10/27/17 06:30 PT 13.2 SECONDS (9.4-12.5) H 10/22/17 12:20 INR 1.14 (0.93-1.08) H 10/22/17 12:20 APTT 42.2 Seconds (25.1-36.5) H 10/13/17 15:14 Attending/Attestation - Attestation I have personally seen and examined this patient.: Yes I have fully participated in the care of the patient.: Yes I have reviewed all pertinent clinical information, including history, physical exam and plan: Yes
--- NOTE | 2017-10-25 11:36 | PN ---
DATE: 10/25/2017 SUBJECTIVE: The patient is currently seen lying comfortable supine in bed on 5R. She is noncommunicative. MEDICATIONS: Medication list reviewed; the patient is on Ambien p.r.n., hydralazine, mupirocin, Catapres patch, losartan, Desyrel, D5 half-normal saline 60 an hour, Keppra, Lopressor, Neutra-Phos, Nystatin, oxycodone p.r.n., Protonix, Remeron, Xanax and Xopenex. OBJECTIVE: INTAKE/OUTPUT: 810 in 575 out. VITAL SIGNS: Blood pressure 120/72, temperature 98.2, respiratory rate 20 with a pulse of 80. HEENT: Shows her to be normocephalic, atraumatic. Conjunctivae are pink. Sclerae are nonicteric. NECK: Supple. No neck vein distention. CHEST: Clear to auscultation and percussion. No rales, no rhonchi or wheezing. CARDIOVASCULAR: Shows a normal S1, S2 with no audible murmurs, rubs or gallops. ABDOMEN: Soft. Nondistended. Bowel sounds are normal. No masses appreciated. : Positive indwelling Bush catheter. EXTREMITIES: Show trace pitting pedal edema. No cyanosis or clubbing. LABORATORY DATA AND IMAGING: CBC; white blood cell count today 6.6, hemoglobin stable 11.1 with a platelet count of 123,000. Chemistries today show sodium of 137, potassium remains low at 3.3, chloride 109, CO2 21 with a BUN of 16 and creatinine of 0.4. Glucose is 87. Calcium is 8.2. Phosphorus level was 3.6 several days ago. Magnesium level repeat today is 1.7. Bilirubin is 1.8. Mild elevation of AST at 45. Albumin remains low at 2.6. Microbiology, all cultures are negative. ASSESSMENT: 1. Status post acute renal failure. BUN and creatinine are back to normal. 2. Status post severe intraabdominal bleed secondary to rectus sheath bleed secondary to a possible fall. This has apparently resolved. The patient is status post a total of 7 units of packed red blood cells. 3. Status post severe anemia. Hemoglobin appears to be stable in the 10-11 range. 4. History of severe hypertension. Blood pressure is presently well controlled on present medication. 5. Mild hypokalemia. The patient had received oral potassium supplements. I will continue oral potassium supplements and add potassium chloride to her IV fluids. Her magnesium level is normal. 6. Status post possible sepsis, pneumonia and possible urinary tract infection. The patient has completed a course of antibiotic therapy. 7. History of atrial fibrillation. The patient had been on chronic anticoagulation. This is presently on hold because of her rectus sheath bleed. 8. History of peripheral vascular disease status post thoracic aortic aneurysm with endovascular graft repair. This appears to be stable. 9. Past history of cerebrovascular accident. 10. History of hepatitis C with cirrhosis and splenomegaly and perhaps mild ascites. This appears to be stable. 11. History of seizure disorder, stable on Keppra therapy. 12. History of chronic stable thrombocytopenia. Her last platelet count is improved to 123,000. PLAN: 1. The patient appears to be stable from our standpoint with the exception of her low potassium level. I will add potassium chloride to her IV fluids. The patient will also continue on oral potassium supplements. 2. Continue to monitor labs on a regular basis. 3. Continue present medication therapy without change. Jaycob Cummins MD
--- NOTE | 2017-10-25 12:49 | PN ---
DATE: 10/24/2017 SUBJECTIVE: The patient is stable, in no distress. She is smiling. She is not in any pain, by verbal, asking her questions. She is nodding her head that there is no pain, and she has no respiratory distress. PHYSICAL EXAMINATION VITAL SIGNS: On that day, temperature 98.2, heart rate 80, blood pressure 120/72, respirations 20, saturation 94% on room air. HEAD AND NECK: Normal. No JVD. No thyromegaly. CHEST: Clear. CARDIAC: First sound and second sound normal. ABDOMEN: Soft. Tender in the left side, firm. Bowel sounds intact. EXTREMITIES: Mild edema in the foot, a little more than before. NEUROLOGIC: She has left hemiplegia. She also does not move her both lower extremities, chronic non-mobility and bedridden in addition to her stroke. LABORATORY DATA: White count 5.7, hemoglobin 10.8, hematocrit 32.7, platelets 103. Chemistry shows sodium 136, potassium 3.2, chloride 110, bicarb 21, BUN 8, creatinine is 0.5, blood sugar 87. Her total bilirubin is 1.7. Liver function test seems within normal range, except AST slightly elevated. IMPRESSION AND PLAN: 1. Acute abdominal wall bleed, stable, no further bleeding by laboratory measurements, and clinically she is stable, continue to monitor her hemoglobin and hematocrit. Discussed with Hematology and as a doctor, we will hold off on any anti-platelets or any Coumadin till further evaluation. 2. Anemia, secondary to bleeding and multifactorial. Hemoglobin is stable. We will repeat lab in the morning. 3. Chronic hepatitis C, thrombocytopenia. We will monitor platelets. No hepatitis C treatment at this time. The patient seen by GI consult. She does have on the CAT scan, ascites tapping this patient to help the bilirubin will be important. We will follow up these recommendations. 4. Chronic obstructive pulmonary disease, history of cardiac atrial fibrillation, off antiplatelets, continue inhaled bronchodilators and we will follow up clinically. 5. Chronic back pain, chronic anxiety, insomnia. Continue Ambien, Xanax, and Percocet p.r.n. 6. Hypertension, difficult to control. The patient is currently stable. Her medication, , Cozaar 100, Lopressor 50 b.i.d., clonidine p.r.n. and hydralazine p.r.n.. Continue current therapy. Follow up clinically. 7. History of severe vascular disease. She does have cerebrovascular accident with left hemiplegia. She is bedridden with history of decubitus in the past, now stable. She also has history of carotid stenosis, abdominal aortic aneurysm with a small leak between the layer of the stents. No interventional at this time. The patient seen by surgeon for her recent CAT scan findings. She is table. Plan, continue current therapy. Follow up clinically. 8. Seizure disorder, continue Keppra 500 b.i.d. Continue current treatment. Follow up clinically. Albin Forte MD
--- NOTE | 2017-10-25 13:21 | PN ---
DATE: 10/25/2017 LOCATION: The patient is in room 571, bed 1. REASON FOR CONSULTATION AND FOLLOWUP: Paroxysmal atrial fibrillation, rectus sheath hematoma, severe anemia, altered mental status, status post multiple transfusions, and old CVA. SUBJECTIVE: The patient is lying flat in bed without apparent any respiratory distress. The patient sometimes answers by shaking her head. PHYSICAL EXAMINATION: VITAL SIGNS: Blood pressure 140/69, yesterday was 120/72; respirations 20; pulse 75; temperature 98.1. HEENT: Head is normocephalic. Eyes, pupils normal. Conjunctivae, slightly pale. NECK: JVP low. Carotids equal. THORAX: AP diameter normal. LUNGS: Clear. CARDIOVASCULAR: S1 and S2. ABDOMEN: Soft, nontender. No organomegaly. Bowel sounds normal. EXTREMITIES: No clubbing. No cyanosis. LABORATORY DATA: WBC 6.6, hemoglobin 11.1, hematocrit 34.2, platelets 123. Sodium 137, potassium 3.3, BUN 6, creatinine 0.4. Total bilirubin 1.8, AST 45, ALT 33, total protein 5.7, albumin 2.6. DIAGNOSES: Severe protein-calorie malnutrition, anemia, rectus sheath hematoma, paroxysmal atrial fibrillation, cerebrovascular accident old. The patient was on Coumadin at home and had multiple blood transfusions. On admission, the patient had supratherapeutic INR, history of cardiac catheterization which showed nonobstructive coronary artery disease, history of endovascular stent, history of old cerebrovascular accident with contracture on the left side, hypokalemia. PLAN: We will give extra potassium. We will repeat labs in the morning. As mentioned before, the patient in the risk of bleeding, so anticoagulation has not been restarted, and family also does not want the patient to be anticoagulated for more. The patient is on hydralazine 100 mg t.i.d., clonidine 0.3 mg 24-hour patch once a week, losartan 100 mg daily, The patient already has been ordered potassium chloride 20 mEq p.o. once today by Dr. Cummins, Sepideh 500 b.i.d., metoprolol 50 b.i.d. The patient is also on PhosLo, potassium one packet p.o. daily. Blood work had been already requested by tomorrow morning. The patient is also getting potassium in IV D5W 20 mEq and 1000 60 mL/hour. We will also give 10 mEq IV today. We will follow with you. Anushka Monroy MD
--- NOTE | 2017-10-25 14:03 | PN ---
DATE: 10/23/2017 SUBJECTIVE: The patient is clinically stable. No complaints. No chest pain. Not short of breath. Status post transfusion and hemoglobin today was 11. The patient's daughters, both of them on the bedside. Discussed with them the medical treatments. There is no need for any surgery at this time because of high risk and I discussed their code status and I showed them the patient's wishes, we will place this when the patient is better. We will discuss further about DNR/DNI with the patient and with the daughters where they need to get along and get me another decision. Right now, we will continue what the patient wishes until further evaluation. PHYSICAL EXAMINATION: VITAL SIGNS: On 10/23/2017, the patient's vital signs are stable. Her temperature is afebrile at 98.3, heart rate is 73, blood pressure is 124/66, respirations are 20, and saturating 100% on room air. HEENT: Head and neck exam is normal. No JVD. No thyromegaly. CHEST: Clear. There are diminished breath sounds in the bases. CARDIAC: First sounds and second sounds normal. ABDOMEN: Firm on the left side on palpation. It seems nontender. Ecchymosis on the right side seems better and improving. Bowel sounds are intact. EXTREMITIES: There is bilateral foot edema. NEUROLOGIC: The patient is paraplegic and left hemiplegic. She is alert. She awake. She talks, but not much. LABORATORY STUDIES: From 10/23/2017, white count of 6, hemoglobin of 11, hematocrit of 33.3, and platelets of 129. Her chemistry noted for sodium of 136, potassium of 3.6, chloride of 109, bicarbonate of 21, BUN of 11, and creatinine of 0.5. IMPRESSION AND PLAN: 1. Acute abdominal wall bleeding with possible some peripancreatic fluid, possible anterior abdominal, however, at this time, the patient is mainly anterior abdominal wall increased size on the CAT scan. The patient is stable posttransfusion. Hemoglobin is 11, clinically and hemodynamically stable and no distress. Continue current therapy. Discussed with Dr. Sanchez. Discussed with her daughter about treatment plan. We will keep the patient here, monitor her hemoglobin and hematocrit if stabilized. No anticoagulation for a week and reduce. We will start with baby aspirin, low dose medications and we will follow up. 2. The patient also had cerebrovascular accident and left hemiplegia. She has vascular pathology, stent placement, and carotid stenosis. She is off any antiplatelets or any Coumadin. At this time, continue current therapy and monitor clinically. 3. Hypertension: She is currently on Cozaar 100 mg, Catapres patch x3 after 24 hours once a week, hydralazine increased into 100 mg t.i.d., and she is getting Lopressor 50 mg twice a day. We will continue current therapy. We will follow up clinically. 4. The patient seems not eating much. We will give her IV fluids. We will hold off on any Norvasc because of edema of lower extremities. 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 5. Chronic back pain and chronic osteoarthritis: Any movement of the patient, she complains of pain. She has left hip dislocations, chronic at this time. Continue pain medications Percocet and Xanax. Albin Forte MD
[2017-10-25] MEDS: Potassium Chloride 20 MEQ in Dextrose 5%/0.45% NS 1,000 ML IV SCH (16:00)
--- NOTE | 2017-10-25 16:30 | PN ---
DATE: 10/25/2017 SUBJECTIVE: The patient is lying in bed. She is weak. Her voice is barely audible. PHYSICAL EXAMINATION: VITAL SIGNS: Reveal temperature of 98.1, blood pressure 140/69, and heart rate is 75. HEENT: Reveals sclerae to be white, conjunctivae pink. NECK: Supple. CHEST: Reveals distant breath sounds. HEART: Reveals regular rate and rhythm. ABDOMEN: Soft and nontender. EXTREMITIES: Show trace edema. LABORATORY DATA: Reveals white blood cell count 6.6, hemoglobin 11.1, and platelet count 123,000. Chemistries revealed potassium 3.3, BUN 6, creatinine 0.4, total bilirubin 1.8, AST 45, and ALT 33. IMPRESSION: 1. Cirrhosis of the liver. 2. Large abdominal wall and pelvic hematoma. 3. Anemia. 4. History of cerebrovascular accident. 5. Chronic obstructive pulmonary disease. RECOMMENDATIONS: Continue supportive care. Her long-term prognosis is extremely poor. Klever Clarke MD
[2017-10-25] MEDS: oxyCODONE 10 mg Immediate Release Tab PO PRN (18:08)
--- NOTE | 2017-10-25 21:41 | CT ---
EXAM: CT Abdomen and Pelvis Without Intravenous Contrast EXAM DATE/TIME: 10/25/2017 6:42 PM CLINICAL HISTORY: 77 years old, female; Signs and symptoms; Other: Bdominal distention; Additional info: Abdominal distention. Patient unable to stay in position/unable to follow instructions/best obtainable scan TECHNIQUE: Axial computed tomography images of the abdomen and pelvis without intravenous contrast. All CT scans at this facility use one or more dose reduction techniques, viz.: automated exposure control; ma/kV adjustment per patient size (including targeted exams where dose is matched to indication; i.e. head); or iterative reconstruction technique. Coronal and sagittal reformatted images were created and reviewed. COMPARISON: CT - ABD PELVIS W/O PO OR IV CONT 2017-10-20 21:49 FINDINGS: Lower thorax: There are bilateral partially calcified breast implants. The heart is mildly enlarged. There are coronary artery calcifications. Ascending aorta and main pulmonary artery are normal in caliber. There is an incompletely imaged distal thoracic aortic aneurysm with endograft. There are moderately large bilateral pleural effusions. There is bilateral lower lobe atelectasis. There is partial atelectasis in the middle lobe and lingula. There is a hiatal hernia ABDOMEN: Liver: Hepatic contours are nodular. Gallbladder and bile ducts: unremarkable Pancreas: The there continues to be relative enlargement of the pancreatic head. There is edema in and around the pancreatic head. Pancreatic body and tail are relatively atrophic. Spleen: Spleen is mildly enlarged. Adrenals: Adrenals are unremarkable. Kidneys and ureters: unremarkable Stomach and bowel: Stomach is almost empty. Rotation is normal. There are mildly distended small bowel loops in the upper abdomen. There is mild wall thickening. There is no obstruction. Terminal ileum is unremarkable. Appendix is not visualized.There is scattered diverticulosis. Appendix: See stomach and bowel PELVIS: Bladder: Bladder is almost empty. A Bush catheter remains in place. Reproductive: Uterus and adnexal structures are unremarkable. ABDOMEN and PELVIS: Intraperitoneal space: There continues to be fluid in the abdomen and pelvis. Pelvic fluid has increased. There is no free air. Bones/joints: OsteopeniaThere are degenerative changes in the osseus structures. There is a dislocated left hip prosthesis. Soft tissues: Large left abdominal wall hematoma is similar in appearance. Body wall edema Vasculature: There are atherosclerotic calcifications in the abdominal aorta. There is a focal infrarenal aneurysm 3.87 m in maximal dimension. Lymph nodes: There is no pathologic adenopathy. IMPRESSION: Continued moderately large bilateral pleural effusions with bilateral lower lobe atelectasis and partial middle lobe and lingular atelectasis; cardiomegaly and atherosclerotic disease, partially imaged descending thoracic aortic aneurysm with endograft, focal infrarenal abdominal aortic aneurysm, unchanged; large left abdominal wall hematoma similar appearance to the prior study; slight increase in pelvic ascites with persistent fluid in the upper abdomen; cirrhosis with splenomegaly; pancreatitis Additional nonemergent findings as described above.
--- NOTE | 2017-10-25 22:26 | PN ---
DATE: 10/25/2017 SUBJECTIVE: The patient seen earlier today in room 571. No fevers and no chills. OBJECTIVE: On exam, temperature is 98, blood pressure is 140/60, respiratory rate of 20. HEENT: Unremarkable. NECK: Supple. LUNGS: Have decreased breath sounds. HEART: Normal S1, S2. ABDOMEN: Soft and nontender. LABORATORY EXAMINATION: Reveals a white count of 6.6, hemoglobin of 11, platelets of 123. Chemistry reveals a BUN of 6, creatinine of 0.4. Procalcitonin is noted at 0.34. Review of the orders reveals the patient to be off of antibiotics. Microbiology reveals the blood cultures are negative. Urine cultures; multiple species, possible contamination. ASSESSMENT AND PLAN: This is a 77-year-old female with systemic inflammatory response syndrome due to acute drop in hemoglobin and left rectus sheath hematoma. No evidence of sepsis at this point, and currently off of antibiotics, afebrile and the patient with a history of right lower lobe healthcare-associated pneumonia, history of extended-spectrum beta-lactamase Escherichia coli and enterococcus urinary tract infection, history of atrial fibrillation, cerebrovascular accident, bedridden, history of aortic dissection, seizures, thrombocytopenia, hypertension, chronic pain syndrome, and stays cachectic. Ricardo Burgos MD
--- NOTE | 2017-10-25 23:43 | PN ---
DATE: 10/25/2017 PULMONARY PROGRESS NOTE REFERRING PHYSICIAN: Albin Forte M.D. SUBJECTIVE: The patient is lying in the bed, head at 45 degrees. Night was unremarkable. No nausea. No vomiting. Still has some abdominal discomfort, ecchymotic area on the abdomen. PHYSICAL EXAMINATION: VITAL SIGNS: Temperature is 98, heart rate is 75, respiratory rate is 20, blood pressure is 140/69, pulse oximetry is 94% on room air. HEENT: Moist mucous membranes. Small oral cavity. Crowded airway. NECK: Supple. No JVD. LUNGS: Has fair air entry with rhonchi. HEART: S1, S2. ABDOMEN: Positive bowel sounds, ecchymotic area, tenderness on palpation. EXTREMITIES: There is no edema. NEUROLOGIC: Awake, alert, follows simple commands. LABORATORY DATA: Show hemoglobin 11.1, hematocrit 34.2, WBC 6.6, platelet is 123. Sodium 137, potassium 3.3, chloride 109, bicarbonate 21. BUN 6, creatinine 0.4. Glucose 87, calcium is 8.2, total bilirubin 1.8. AST 45, ALT 33, alkaline phosphatase 70. Albumin is 2.6. Microbiology, blood culture, urine culture, naris culture is unremarkable. MEDICATIONS: She is on Ambien 5 mg at bedtime p.r.n., hydralazine 10 mg q.i.d. p.r.n., Bactroban ointment to affected area, Catapres patch 0.3 mg weekly, Cozaar 100 mg daily, trazodone 50 mg at bedtime, Keppra 500 mg twice a day, metoprolol tartrate 50 mg twice a day, potassium supplement and phosphorus supplement, oxycodone immediate release 10 mg q.6 hours p.r.n., potassium 20 mEq, Protonix 40 mg daily, Remeron 15 mg at bedtime, Xanax 0.25 mg three times a day, Xopenex inhaled t.i.d. ASSESSMENT AND PLAN: Abdominal wall and pelvic hematoma with anemia requiring transfusion, pleural effusion, chronic obstructive lung disease, seizure disorder, paroxysmal atrial fibrillation, history of hepatitis C, aortic aneurysm, cirrhotic liver. Pulmonary point of view, doing okay, continue bronchodilator. Keep head at 45 degrees. Gastric prophylaxis, off all the anticoagulation because of reaction, bleed, and anemia requiring transfusion. Of course, high risk for thromboembolic disease secondary to paroxysmal atrial fibrillation and status bedridden. Thank you. We will order CBC in the morning. Anushka Barreto MD
[2017-10-26] MEDS: Potassium Chloride 20 MEQ in Dextrose 5%/0.45% NS 1,000 ML IV SCH ×2 (05:40→09:31)
[2017-10-26] MEDS: Levalbuterol 0.63 MG/3 ML Inhal Soln UD IH SCH ×3 (07:31→19:47)
[2017-10-26] MEDS: Potassium & Sodium Phosphate PO SCH (09:28)
[2017-10-26] MEDS: Pantoprazole 40 mg EC Tab PO SCH (09:28)
[2017-10-26] MEDS: levETIRAcetam 500 mg/5ml UD cups PO SCH ×2 (09:29→19:41)
--- NOTE | 2017-10-26 09:44 | PN ---
DATE: 10/26/2017 SUBJECTIVE: The patient is currently seen lying comfortable in bed. She is noncommunicative. Apparently, she had refused her blood work earlier this morning. MEDICATIONS: Medication list reviewed. The patient is currently on Ambien, hydralazine, mupirocin, Catapres patch, losartan, Desyrel, Keppra, Lopressor, Neutra-Phos, Nystatin, oxycodone p.r.n., IV fluid with potassium chloride, Protonix, Remeron, Xanax, and Xopenex. OBJECTIVE: INTAKE/OUTPUT: Intake 300, output 1200. This is likely not complete as the patient is on IV fluid hydration. VITAL SIGNS: Blood pressure is ranging from 140 to 175 systolic, diastolic 69 to 93. Pulse is 96. Temperature 98.4, respiratory rate is 20 with a pulse ox of 98%. HEENT: Normocephalic, atraumatic. Conjunctivae are pink. Sclerae are nonicteric. NECK: Supple. No neck vein distention. CHEST: Clear to auscultation and percussion. No rales, rhonchi or wheezing. CARDIOVASCULAR: Shows a regular rate and rhythm without murmurs, rubs or gallops. ABDOMEN: Soft. Nondistended. Bowel sounds normal. No masses appreciated. : Positive indwelling Bush catheter. EXTREMITIES: Show trace pitting pedal edema. No cyanosis or clubbing. LABORATORY DATA AND IMAGING: Unfortunately, the patient had refused a.m. labs. Her last CBC showed a white blood cell count of 6.6, hemoglobin 11.1, platelet count of 123,000 from 10/25/2017. Chemistries from that same day showed a potassium of 3.3, hence IV fluids with potassium chloride were initiated. BUN was 6 with a creatinine of 0.4. Magnesium level was 1.7. ASSESSMENT: 1. Status post acute renal failure. BUN and creatinine are back to baseline levels. 2. Status post severe intra-abdominal bleed secondary to rectus sheath bleed secondary to possible trauma and fall. This apparently has resolved and hemoglobin remained stable. The patient received a total of 7 units of packed red blood cells. 3. History of hypertension. Blood pressure control is acceptable with mild variability. She will continue present medication. 4. Mild hypokalemia. The patient received both oral and intravenous potassium supplements on the last 24 hours. I have explained to the staff that it is imperative that we repeat a set of blood chemistries this morning. Her magnesium level has been normal. 5. Status post sepsis, pneumonia and possible urinary tract infection. The patient completed a course of antibiotic therapy. 6. History of atrial fibrillation. The patient had been on chronic anticoagulation. This medication currently is on hold because of her rectus sheath bleed. 7. History of peripheral vascular disease, status post thoracic aortic aneurysm with endovascular graft repair. 8. Past history of cerebrovascular accident. 9. History of hepatitis C with cirrhosis, splenomegaly and perhaps mild ascites. These all appear to be stable. 10. History of seizure disorder, stable on Keppra therapy. 11. History of chronic stable thrombocytopenia. Her last platelet count was 123,000. PLAN: 1. Explained to the nursing staff that is imperative that we obtain blood work today, so we know what to do with the potassium supplements. 2. It appears to me that oral intake is not good, so right now, she will continue low-dose maintenance IV fluid hydration. 3. Continue to follow labs on a regular basis. 4. Continue present blood pressure medication without change. Jaycob Cummins MD
[2017-10-26 12:21] LABS: HEMOGLOBIN 10.2 g/dL (12.0-16.0); MEAN CORPUSCULAR HEMOGLOBIN 30.6 pg (25.0-35.0); MEAN CORPUSCULAR HGB CONC 32.6 g/dl (31.0-37.0); MEAN PLATELET VOLUME 10.5 fl (7.0-11.0); RBC 3.33 10^6/uL (3.5-6.1); RED CELL DISTRIBUTION WIDTH 18.7 % (11.5-14.5); WHITE BLOOD COUNT 6.1 10^3/ul (4.5-11.0)
[2017-10-26 12:43] LABS: ALB/GLOB RATIO 0.8 (1.1-1.8); ALBUMIN 2.4 g/dL (3.0-4.8); ALT/SGPT 33 U/L (7-56); AST/SGOT 36 U/L (14-36); BLOOD UREA NITROGEN 5 mg/dL (7-21); CALCIUM 8.1 mg/dL (8.4-10.5); GFR AFRICAN-AMERICAN > 60; GFR NON-AFRICAN AMERICAN > 60; MAGNESIUM 1.5 mg/dL (1.7-2.2)
--- NOTE | 2017-10-26 15:35 | PN ---
DATE: 10/26/2017 LOCATION: The patient in room 571, bed 1. REASON FOR CONSULTATION AND FOLLOWUP: Paroxysmal atrial fibrillation, rectus sheath hematoma, severe anemia, altered mental status, status post multiple transfusions, old CVA. SUBJECTIVE: The patient is lying in bed, without any respiratory distress. PHYSICAL EXAMINATION: VITAL SIGNS: Blood pressure 140/68, respirations 20, pulse 73, temperature 98.2. HEENT: Head is normocephalic. Eyes, pupils normal. Conjunctivae, slightly pale. NECK: JVP low. Carotids equal. THORAX: AP diameter normal. LUNGS: No significant rales. CARDIOVASCULAR: S1 and S2. No rub. ABDOMEN: Soft, nontender. No organomegaly. EXTREMITIES: No clubbing. No cyanosis. LABORATORY DATA: WBC 6.6, hemoglobin 11.1, hematocrit 34.2, platelets 123. Sodium 137, potassium 3.3, BUN 6, creatinine 0.4. Magnesium 1.7, total bilirubin 1.8, AST 45, ALT 33, total protein 5.7, albumin 2.6. DIAGNOSES: Anemia, rectus sheath hematoma, paroxysmal atrial fibrillation, severe protein-calorie malnutrition, cerebrovascular accident old, status post multiple blood transfusions. Supratherapeutic INR on admission. The patient was on Coumadin at home. History of cardiac catheterization, which showed nonobstructive coronary artery disease, history of endovascular stent, history of old cerebrovascular accident with contracture on the left side, hypokalemia. PLAN: The patient was given additional potassium yesterday and that above lab work is from yesterday. Today's blood work reports are pending. The patient anticoagulation because of risk of bleeding, family also does not want to have anticoagulation and they know all the possible complications which can happen including CVA. The patient is on hydralazine 100 mg t.i.d., losartan 100 mg daily, D5W with 20 mEq potassium 60 mL per hour, Keppra 500 b.i.d., metoprolol 50 b.i.d. potassium one packet p.o. daily, Protonix 40 mg daily, inhale Xopenex handheld nebulizer therapy. We will follow with you. Anushka Monroy MD [facility] # [id number]
--- NOTE | 2017-10-26 15:59 | CP.PCM.PN ---
<Audie Reyes - Last Filed: 10/26/17 15:56> Subjective - Date & Time of Evaluation Date of Evaluation: 10/26/17 Time of Evaluation: 15:57 - Subjective Subjective: Podiatry Progress Note - Drs. Arteaga/Denita 76 year old female patient seen and evaluated at bedside for left heel wound and right heel DTI. Patient is seen resting comfortably in bed and awake. Multipodus boots seen on during visitation. No new complaints during time of visitation. Objective - Vital Signs/Intake and Output Vital Signs (last 24 hours): Temp Pulse Resp BP Pulse Ox 98.2 F 73 20 140/68 94 L 10/26/17 09:20 10/26/17 09:28 10/26/17 09:20 10/26/17 09:28 10/26/17 09:20 Intake and Output: 10/26/17 10/26/17 06:59 18:59 Intake Total 300 120 Output Total 500 300 Balance -200 -180 - Medications Medications: Current Medications Clonidine HCl (Catapres-Tts3 0.3 Mg/24 Hr) 1 patch TD Q7D@1000 [facility] Last Admin: 10/23/17 09:35 Dose: 1 patch Hydralazine HCl (Apresoline) 10 mg PO QID PRN PRN Reason: for sbp>160 Last Admin: 10/19/17 06:18 Dose: 10 mg Hydralazine HCl (Apresoline) 100 mg PO TID [facility] Last Admin: 10/26/17 09:27 Dose: 100 mg Potassium Chloride 20 meq/ (Dextrose/Sodium Chloride) 1,010 mls @ 60 mls/hr IV .[id number] [facility] Last Admin: 10/26/17 09:31 Dose: 60 mls/hr Levalbuterol HCl (Xopenex) 0.63 mg IH TIDRESP [facility] Last Admin: 10/26/17 13:49 Dose: 0.63 mg Levetiracetam (Keppra) 500 mg PO BID [facility] Last Admin: 10/26/17 09:29 Dose: 500 mg Losartan Potassium (Cozaar) 100 mg PO DAILY [facility] Last Admin: 10/26/17 09:28 Dose: 100 mg Metoprolol Tartrate (Lopressor) 50 mg PO BRKDIN [facility] Last Admin: 10/26/17 09:28 Dose: 50 mg Mirtazapine (Remeron) 15 mg PO HS [facility] Last Admin: 10/25/17 22:23 Dose: 15 mg Mupirocin (Bactroban Ointment) 0 gm TOP BID [facility] Last Admin: 10/25/17 18:00 Dose: 1 applic Nystatin (Nystop Topical Powder) 0 gm TOP Q12 [facility] Last Admin: 10/25/17 22:23 Dose: 1 applic Oxycodone HCl (Oxycodone Immediate Release Tab) 10 mg PO Q6H PRN PRN Reason: Pain, moderate (4-7) Last Admin: 10/25/17 18:08 Dose: 10 mg Pantoprazole Sodium (Protonix Ec Tab) 40 mg PO DAILY [facility] Last Admin: 10/26/17 09:28 Dose: 40 mg Potassium Phos/Sodium Phos (Neutra-Phos) 1 pkt PO DAILY [facility] Last Admin: 10/26/17 09:28 Dose: 1 pkt Trazodone HCl (Desyrel) 50 mg PO HS [facility] Last Admin: 10/25/17 22:23 Dose: 50 mg Zolpidem Tartrate (Ambien) 5 mg PO HS PRN; Protocol PRN Reason: Insomnia - Labs Labs: 10/26/17 12:00 10/26/17 12:00 PT 13.2 SECONDS (9.4-12.5) H 10/22/17 12:20 INR 1.14 (0.93-1.08) H 10/22/17 12:20 APTT 42.2 Seconds (25.1-36.5) H 10/13/17 15:14 - Constitutional Appears: Well, Non-toxic, No Acute Distress - Extremities Exam Additional comments: Vasc: DP pulses weakly palpable 1/4 b/l. PT pulses nonpalpable b/l. CFT is delayed x10 digits. Temperature gradient cool to cool b/l. Neuro: gross and protective sensation diminished Derm: Ulceration noted to plantar aspect of left heel secondary to deep tissue injury with surrounding erythema; no sanguinous drainage present and minimal serous drainage noted; no purulence, no malodor, no fluctuance - no clinical signs of infection noted Ecchymosis noted to dorsolateral right foot- improving Ortho: Tenderness to palpation left plantar heel wound. - Psychiatric Exam Psychiatric exam: Normal Affect, Normal Mood Assessment and Plan - Assessment and Plan (Free Text) Assessment: 76 year old female with 1) left heel plantar ulceration, 2) left heel posterior DTI, 3) right heel posterior DTI Plan: Patient seen and evaluated at bedside Plan discussed with attending Dr. Barger Afebrile, absent leukocytosis Wound dressed with bactroban and optifoam Multipodus boot reapplied Podiatry will continue to follow while patient is in house <Richard Barger - Last Filed: 10/28/17 12:11> Objective - Vital Signs/Intake and Output Vital Signs (last 24 hours): Temp Pulse Resp BP Pulse Ox 98.1 F 70 18 173/74 H 97 10/28/17 08:00 10/28/17 10:31 10/28/17 08:00 10/28/17 10:31 10/28/17 08:00 Intake and Output: 10/28/17 10/28/17 06:59 18:59 Intake Total 60 Output Total 500 Balance -440 - Medications Medications: Current Medications Clonidine HCl (Catapres-Tts3 0.3 Mg/24 Hr) 1 patch TD Q7D@1000 [facility] Last Admin: 10/23/17 09:35 Dose: 1 patch Hydralazine HCl (Apresoline) 10 mg PO QID PRN PRN Reason: for sbp>160 Last Admin: 10/19/17 06:18 Dose: 10 mg Hydralazine HCl (Apresoline) 100 mg PO TID [facility] Last Admin: 10/28/17 10:31 Dose: 100 mg Potassium Chloride/Dextrose/Sod Cl (Potassium Chl 20 Meq In D5-1/2ns) 1,000 mls @ 40 mls/hr IV .Q24H [facility] Last Admin: 10/27/17 22:24 Dose: 40 mls/hr Levalbuterol HCl (Xopenex) 0.63 mg IH TIDRESP [facility] Last Admin: 10/28/17 07:25 Dose: 0.63 mg Levetiracetam (Keppra) 500 mg PO BID [facility] Last Admin: 10/28/17 10:31 Dose: 500 mg Losartan Potassium (Cozaar) 100 mg PO DAILY [facility] Last Admin: 10/28/17 10:31 Dose: 100 mg Magnesium Oxide (Mag-Ox) 400 mg PO BID [facility] Last Admin: 01/16/18 10:31 Dose: 400 mg Metoprolol Tartrate (Lopressor) 50 mg PO BRKDIN [facility] Last Admin: 10/28/17 08:26 Dose: 50 mg Mirtazapine (Remeron) 15 mg PO HS [facility] Last Admin: 10/27/17 23:30 Dose: 15 mg Mupirocin (Bactroban Ointment) 0 gm TOP BID [facility] Last Admin: 10/28/17 10:40 Dose: 1 applic Pantoprazole Sodium (Protonix Ec Tab) 40 mg PO DAILY [facility] Last Admin: 10/28/17 10:31 Dose: 40 mg Potassium Phos/Sodium Phos (Neutra-Phos) 1 pkt PO DAILY [facility] Last Admin: 10/28/17 10:31 Dose: 1 pkt Trazodone HCl (Desyrel) 50 mg PO HS [facility] Last Admin: 10/27/17 22:04 Dose: 50 mg Zolpidem Tartrate (Ambien) 5 mg PO HS PRN; Protocol PRN Reason: Insomnia Last Admin: 10/27/17 22:04 Dose: 5 mg - Labs Labs: 10/27/17 06:30 10/27/17 06:30 PT 13.2 SECONDS (9.4-12.5) H 10/22/17 12:20 INR 1.14 (0.93-1.08) H 10/22/17 12:20 APTT 42.2 Seconds (25.1-36.5) H 10/13/17 15:14 Attending/Attestation - Attestation I have personally seen and examined this patient.: Yes I have fully participated in the care of the patient.: Yes I have reviewed all pertinent clinical information, including history, physical exam and plan: Yes
[2017-10-26] MEDS: Nystatin 100,000 Units/gm Topical Pow(15 gm) TOP SCH ×2 (18:32→23:22)
[2017-10-26] MEDS: Magnesium Oxide 400 mg Tab UD PO SCH (22:33)
--- NOTE | 2017-10-27 00:09 | PN ---
DATE: 10/27/2017 SUBJECTIVE: The patient is medically stable. She is more awake, alert, and responding to talk by moving her hands and by lowering her head and just mumbling few words. Daughter is next to her at the bedside. The patient is in no distress. She stares. She does have some discomfort on palpitation of her abdomen. Otherwise, no new complaints. PHYSICAL EXAMINATION: VITAL SIGNS: Temperature 98.1, heart rate 75, blood pressure 140/69, respirations 20, and saturations 98% on room air. HEAD AND NECK: Normal. No JVD. No thyromegaly. CHEST: Clear. Diminished breath sounds bilaterally. CARDIAC: First sound and second sound normal. ABDOMEN: Firm on the left side and there is also firmness in the lower abdomen. Mild tenderness on palpations. Bowel sounds intact. EXTREMITIES: There is mild edema in the foot area. NEUROLOGIC: Left hemiplegia with also paraplegia both legs. She also had left hip dislocation. LABORATORY STUDIES: She has white count of 6.6, hemoglobin 11.1, hematocrit 34.2, and platelets 123. Chemistry, sodium 137, potassium 3.3, chloride 109, bicarb 21, BUN 6, creatinine 0.4, calcium 8.2, total bilirubin 1.8, AST is 45, ALT 33, and alkaline phosphatase is 70. IMPRESSION AND PLAN: 1. Abdominal wall hematoma with increasing size compare to previous one and seems also intraabdominal ascites. Plan is continue to observe. We will repeat CAT scan today and we will follow up clinically. Dr. Galindo is planning to tap her fluid. We will get Dr. Pratik Kendrick also in consult and we will follow up clinically. We will continue monitor H and H. 2. Hypertension, stable. Continue current blood pressure medicines as per Nephrology, Dr. Berg. 3. History of seizure disorder. Continue Keppra. 4. Hypothyroidism, chronic atrial fibrillation, intraabdominal aneurysm with a stent placement, carotid stenosis, chronic hepatitis C, liver cirrhosis, splenomegaly, and ascites. At this time, we will continue current therapy. We will continue IV fluid for now because the patient is not eating and we will give a D5 normal saline at 60 mL per hour. We will continue monitor blood pressure, H and H, continue SCDs on both lower extremity for DVT prophylaxis. I did explain to the daughter risk of strokes and embolic phenomenon anywhere including ischemic leg and emboli to the brain to the GI tract and that is because we cannot give any anticoagulation at this time, no aspirin and no Lovenox. At this time, we will maintain repeat CT and we will discuss further with the Hematology consult and dimensional inspector. At this time, continue current therapy. Followup clinically. Current medications, Ambien 5 mg at night, hydralazine 100 mg t.i.d., Catapres patch 0.3, Cozaar 100 once a day, trazodone 50 mg at bedtime, Keppra 500 mg b.i.d., Lopressor 50 b.i.d., Neutra-Phos, continue nystatin cream, potassium 20 p.o. in the IV fluids in each liters, and Protonix 40 p.o. daily. Remeron was given to increase her appetite 15 mg p.o. at bedtime and continue Xopenex and nebulizer treatment. Continue current therapy. Albin Forte MD
--- NOTE | 2017-10-27 00:20 | PN ---
DATE: 10/26/2017 REFERRING PHYSICIAN: Albin Forte MD SUBJECTIVE: The patient is lying in the bed, head at 45 degrees. Sleepy, arousable, no headache, no adenoiditis, no cough, no sputum production, still has some abdominal wall discomfort. No dysuria, leg pain, leg swelling. OBJECTIVE: GENERAL: In no acute distress. VITAL SIGNS: Temperature is 98, heart rate is 73, respiratory rate is 20, blood pressure 140/68, pulse oximetry 94% on nasal cannula. HEENT: Moist mucous membranes. Crowded airway, Mallampati score is IV. NECK: Supple. No JVD. LUNGS: Fair airflow with few rhonchi. HEART: S1 and S2. ABDOMEN: Soft and nontender. Nondistended. Right side of the abdomen has ecchymotic area. That area is tender. EXTREMITIES: There is no edema. NEUROLOGIC: Awake, alert, and follows simple command. MEDICATIONS: She is on Ambien 5 mg nightly p.r.n., hydralazine 10 mg 4 times a day p.r.n., also 100 mg hydralazine 3 times a day round the clock, Bactroban ointment to affected area twice a day, clonidine 0.3 q.7 days, Cozaar 100 mg daily, trazodone 50 mg nightly, Keppra 500 mg twice a day, metoprolol tartrate 50 mg twice a day, Neutra-Phos one pack daily, nystatin to all the affected area, potassium 20 mEq daily, Protonix 40 mg daily, Remeron 50 mg nightly, Xopenex inhaler q.8 hours. LABORATORY DATA: Shows hemoglobin 10.2, hematocrit 31.3, WBC is 6.1, platelet is 92. Sodium 136, potassium 3.9, chloride 110, bicarbonate 21, BUN 5, creatinine 0.4, glucose 92, calcium is 8.2, phosphorus is 3.3, magnesium is 1.5. AST 36, ALT 33, alk phos is 57, albumin is 2.4. Microbiology: Blood culture, urine culture, nares culture: There is no growth. Has a CAT scan of the abdomen and pelvis done yesterday which shows continuous moderate large bilateral pleural effusions with bilateral lower lobe atelectasis and partial middle lobe and lingular atelectasis, cardiomegaly, and atherosclerotic disease, partially imaged descending anterior aortic aneurysm with endograft, focal infrarenal abdominal aortic aneurysm, unchanged large left abdominal wall hematoma, similar appearance in the past. There is slight increase in the pelvic ascites with persistent fluid in the upper abdomen, cirrhotic with splenomegaly. Also radiologically has some pancreatitis. IMPRESSION AND PLAN: Abdominal wall and pelvic hematoma with anemia, requiring transfusion; pleural effusion; chronic obstructive lung disease; seizure disorder; paroxysmal atrial fibrillation; history of hepatitis C; aortic aneurysm; cirrhotic liver. Pulmonary point of view, she is doing okay. The patient has been stable. Continue bronchodilator. Keep the head at 45 degrees, supplement oxygen, being followed by GI and Nephrology. Followup labs in the morning. She is off anticoagulation because of risk of bleed and high risk for thromboembolic disease. We will follow with you. Anushka Barreto MD
--- NOTE | 2017-10-27 01:16 | PN ---
DATE: 10/26/2017 SUBJECTIVE: The patient is in bed, no acute distress, nontoxic. PHYSICAL EXAMINATION: VITAL SIGNS: Temperature is 98, blood pressure is 140/60, and respiratory rate of 16. HEENT: Unremarkable. NECK: Supple. LUNGS: Have decreased breath sounds. HEART: Normal S1 and S2. ABDOMEN: Soft. LABORATORY EXAMINATION: Reveals a white count of 6.1, hemoglobin of 10, and platelets of 92. Chemistries are noted and urinalysis is noted. ASSESSMENT AND PLAN: This is a 77-year-old female with systemic inflammatory response syndrome due to acute drop in her hemoglobin and rectus sheath hematoma, no evidence of sepsis, off of antibiotics. The patient had a history of right lower lobe healthcare-associated pneumonia, history of extended-spectrum beta-lactamase Escherichia coli and enterococcus urinary tract infection, history of atrial fibrillation, cerebrovascular accident, bedridden, history of aortic dissection, seizures, thrombocytopenia, hypertension, and chronic pain syndrome. The patient did have a CAT scan of the abdomen and pelvis yesterday, which shows continuous large bilateral pleural effusions and bilateral lower atelectasis, cardiomegaly, and descending thoracic aortic aneurysm with endovascular graft and focal infrarenal abdominal aortic aneurysm unchanged. There is a large left abdominal wall hematoma similar appearance to prior study. Ricardo Burgos MD
[2017-10-27] MEDS: Potassium Chloride 20 MEQ in Dextrose 5%/0.45% NS 1,000 ML IV SCH (02:31)
[2017-10-27 07:15] LABS: HEMOGLOBIN 10.1 g/dL (12.0-16.0); MEAN CELL VOLUME 95.1 fl (80.0-105.0); MEAN CORPUSCULAR HEMOGLOBIN 31.1 pg (25.0-35.0); MEAN CORPUSCULAR HGB CONC 32.7 g/dl (31.0-37.0); MEAN PLATELET VOLUME 10.5 fl (7.0-11.0); RBC 3.25 10^6/uL (3.5-6.1); RED CELL DISTRIBUTION WIDTH 19.1 % (11.5-14.5); WHITE BLOOD COUNT 5.2 10^3/ul (4.5-11.0)
[2017-10-27 07:26] LABS: ALBUMIN 2.5 g/dL (3.0-4.8); ALT/SGPT 28 U/L (7-56); AST/SGOT 37 U/L (14-36); BLOOD UREA NITROGEN 4 mg/dL (7-21); CALCIUM 8.2 mg/dL (8.4-10.5); GFR AFRICAN-AMERICAN > 60; GFR NON-AFRICAN AMERICAN > 60
[2017-10-27 07:34] LABS: ALB/GLOB RATIO 0.8 (1.1-1.8)
[2017-10-27] MEDS: Levalbuterol 0.63 MG/3 ML Inhal Soln UD IH SCH ×3 (08:00→20:10)
[2017-10-27] MEDS: Nystatin 100,000 Units/gm Topical Pow(15 gm) TOP SCH ×2 (09:30→22:04)
--- NOTE | 2017-10-27 11:52 | CP.PCM.PN ---
Subjective - Date & Time of Evaluation Date of Evaluation: 10/27/17 Time of Evaluation: 11:49 - Subjective Subjective: Podiatry Progress Note - Dr. Arteaga/Denita 77 year old female patient seen and evaluated at bedside for left heel wound and right heel DTI. Patient is AAO x 3 and NAD resting comfortably in bed. Denies any new onset pain or acute overnight events to lower extremity. Denies any new signs or symptoms of infection. Multipodus boots present bilaterally. Denies N/V/F/D/C/SOB/posterior calf pain when squeezed Objective - Vital Signs/Intake and Output Vital Signs (last 24 hours): Temp Pulse Resp BP Pulse Ox 99.0 F 74 20 123/94 H 97 10/27/17 08:00 10/27/17 08:00 10/27/17 08:00 10/27/17 08:00 10/27/17 08:00 Intake and Output: 10/27/17 10/27/17 06:59 18:59 Intake Total 120 Output Total 750 Balance -630 - Medications Medications: Current Medications Clonidine HCl (Catapres-Tts3 0.3 Mg/24 Hr) 1 patch TD Q7D@1000 [facility] Last Admin: 10/23/17 09:35 Dose: 1 patch Hydralazine HCl (Apresoline) 10 mg PO QID PRN PRN Reason: for sbp>160 Last Admin: 10/19/17 06:18 Dose: 10 mg Hydralazine HCl (Apresoline) 100 mg PO TID [facility] Last Admin: 10/26/17 18:36 Dose: 100 mg Potassium Chloride 20 meq/ (Dextrose/Sodium Chloride) 1,010 mls @ 60 mls/hr IV .[id number] [facility] Last Admin: 10/27/17 02:31 Dose: 60 mls/hr Levalbuterol HCl (Xopenex) 0.63 mg IH TIDRESP [facility] Last Admin: 10/26/17 19:47 Dose: 0.63 mg Levetiracetam (Keppra) 500 mg PO BID [facility] Last Admin: 10/26/17 19:41 Dose: 500 mg Losartan Potassium (Cozaar) 100 mg PO DAILY [facility] Last Admin: 10/26/17 09:28 Dose: 100 mg Magnesium Oxide (Mag-Ox) 400 mg PO BID [facility] Last Admin: 10/26/17 22:33 Dose: 400 mg Metoprolol Tartrate (Lopressor) 50 mg PO BRKDIN [facility] Last Admin: 10/27/17 08:52 Dose: 50 mg Mirtazapine (Remeron) 15 mg PO HS [facility] Last Admin: 10/26/17 21:44 Dose: 15 mg Mupirocin (Bactroban Ointment) 0 gm TOP BID [facility] Last Admin: 10/26/17 18:31 Dose: 1 applic Nystatin (Nystop Topical Powder) 0 gm TOP Q12 [facility] Last Admin: 10/26/17 23:22 Dose: 1 applic Pantoprazole Sodium (Protonix Ec Tab) 40 mg PO DAILY [facility] Last Admin: 10/26/17 09:28 Dose: 40 mg Potassium Phos/Sodium Phos (Neutra-Phos) 1 pkt PO DAILY [facility] Last Admin: 10/26/17 09:28 Dose: 1 pkt Trazodone HCl (Desyrel) 50 mg PO HS [facility] Last Admin: 10/26/17 21:44 Dose: 50 mg Zolpidem Tartrate (Ambien) 5 mg PO HS PRN; Protocol PRN Reason: Insomnia Last Admin: 10/26/17 21:43 Dose: 5 mg - Labs Labs: 10/27/17 06:30 10/27/17 06:30 PT 13.2 SECONDS (9.4-12.5) H 10/22/17 12:20 INR 1.14 (0.93-1.08) H 10/22/17 12:20 APTT 42.2 Seconds (25.1-36.5) H 10/13/17 15:14 - Constitutional Appears: Well, Non-toxic, No Acute Distress - Extremities Exam Additional comments: Vasc: DP pulses weakly palpable 1/4 b/l. PT pulses nonpalpable b/l. CFT is delayed x10 digits. Temperature gradient cool to cool b/l. Neuro: gross and protective sensation diminished Derm: SUperficial ulceration noted to plantar aspect of left heel secondary to deep tissue injury with surrounding erythema; no sanguinous drainage present and minimal serous drainage noted; no purulence, no malodor, no fluctuance - no clinical signs of infection noted Ecchymossi noted to dorsolateral right foot- improving Ortho: Tenderness to palpation left plantar heel wound - improving - Neurological Exam Neurological Exam: Alert, Awake, Oriented x3 - Psychiatric Exam Psychiatric exam: Normal Affect, Normal Mood Assessment and Plan - Assessment and Plan (Free Text) Assessment: 76 year old female with 1) left heel plantar ulceration, 2) left heel posterior DTI, 3) right heel posterior DTI Plan: Patient seen and evaluated at bedside Plan discussed with attending Dr. Arteaga Afebrile, absent leukocytosis LE US: Chronic left popliteal and tibial DVT Wound dressed with optifoam Multipodus boots reapplied Podiatry will continue to follow while patient in house
[2017-10-27] MEDS: levETIRAcetam 500 mg/5ml UD cups PO SCH ×2 (12:50→19:15)
[2017-10-27] MEDS: Potassium & Sodium Phosphate PO SCH (12:50)
[2017-10-27] MEDS: Magnesium Oxide 400 mg Tab UD PO SCH ×2 (12:50→19:15)
[2017-10-27] MEDS: Pantoprazole 40 mg EC Tab PO SCH (12:51)
--- NOTE | 2017-10-27 16:06 | PN ---
DATE: 10/27/2017 LOCATION: The patient is in room 571, bed 1. REASON FOR CONSULTATION AND FOLLOWUP: Paroxysmal atrial fibrillation, rectus sheath hematoma, severe anemia, altered mental status, status post multiple transfusions, old CVA. SUBJECTIVE: The patient is lying flat in bed, seemed to be more alert today, in no apparent respiratory distress. No chest pain. PHYSICAL EXAMINATION: VITAL SIGNS: Blood pressure 123/94, respirations 20, pulse 74, and temperature 99. HEENT: Head is normocephalic. Eyes, pupils normal. Conjunctivae, slightly pale. NECK: JVP low. Carotids equal. THORAX: AP diameter normal. LUNGS: Clear. CARDIOVASCULAR: S1 and S2. ABDOMEN: Bowel sounds normal. EXTREMITIES: No clubbing. No cyanosis. LABORATORY DATA: WBC 5.2, hemoglobin 10.1, hematocrit 30.9, and platelets 92. Sodium 137, potassium 3.7, BUN 4, creatinine 0.4, bilirubin 1.6, AST 37, ALT 28, total protein 5.5, and albumin 2.5. DIAGNOSES: Anemia, rectus sheath hematoma, blood transfusion, paroxysmal atrial fibrillation, severe protein-calorie malnutrition, cerebrovascular accident old, status post supratherapeutic INR on admission. The patient was on Coumadin at home. History of cardiac catheterization, which showed nonobstructive coronary artery disease, history of endovascular stent, history of cerebrovascular accident with contracture on the left side. The patient had hypokalemia, which has been corrected. PLAN: Continue present therapy. Case discussed with Dr. Forte. Continue metoprolol, Keppra, hydralazine, PhosLo, potassium one packet a day, and Protonix 40 daily. We will follow. Anushka Monroy MD
--- NOTE | 2017-10-27 16:14 | CP.PCM.PN ---
Subjective - Date & Time of Evaluation Date of Evaluation: 10/27/17 Time of Evaluation: 15:00 - Subjective Subjective: Lethargic, no acute distress Objective - Vital Signs/Intake and Output Vital Signs (last 24 hours): Temp Pulse Resp BP Pulse Ox 99.0 F 74 20 123/94 H 97 10/27/17 08:00 10/27/17 08:00 10/27/17 08:00 10/27/17 08:00 10/27/17 08:00 Intake and Output: 10/27/17 10/27/17 06:59 18:59 Intake Total 120 Output Total 750 Balance -630 - Medications Medications: Current Medications Clonidine HCl (Catapres-Tts3 0.3 Mg/24 Hr) 1 patch TD Q7D@1000 [facility] Last Admin: 10/23/17 09:35 Dose: 1 patch Hydralazine HCl (Apresoline) 10 mg PO QID PRN PRN Reason: for sbp>160 Last Admin: 10/19/17 06:18 Dose: 10 mg Hydralazine HCl (Apresoline) 100 mg PO TID [facility] Last Admin: 10/27/17 12:49 Dose: 100 mg Potassium Chloride/Dextrose/Sod Cl (Potassium Chl 20 Meq In D5-1/2ns) 1,000 mls @ 40 mls/hr IV .Q24H [facility] Levalbuterol HCl (Xopenex) 0.63 mg IH TIDRESP [facility] Last Admin: 10/27/17 13:42 Dose: 0.63 mg Levetiracetam (Keppra) 500 mg PO BID [facility] Last Admin: 10/27/17 12:50 Dose: 500 mg Losartan Potassium (Cozaar) 100 mg PO DAILY [facility] Last Admin: 10/27/17 12:50 Dose: 100 mg Magnesium Oxide (Mag-Ox) 400 mg PO BID [facility] Last Admin: 10/27/17 12:50 Dose: 400 mg Metoprolol Tartrate (Lopressor) 50 mg PO BRKDIN [facility] Last Admin: 10/27/17 08:52 Dose: 50 mg Mirtazapine (Remeron) 15 mg PO HS [facility] Last Admin: 10/26/17 21:44 Dose: 15 mg Mupirocin (Bactroban Ointment) 0 gm TOP BID [facility] Last Admin: 10/27/17 12:50 Dose: 1 applic Nystatin (Nystop Topical Powder) 0 gm TOP Q12 [facility] Last Admin: 10/27/17 09:30 Dose: 1 applic Pantoprazole Sodium (Protonix Ec Tab) 40 mg PO DAILY [facility] Last Admin: 10/27/17 12:51 Dose: 40 mg Potassium Phos/Sodium Phos (Neutra-Phos) 1 pkt PO DAILY [facility] Last Admin: 10/27/17 12:50 Dose: 1 pkt Trazodone HCl (Desyrel) 50 mg PO HS [facility] Last Admin: 10/26/17 21:44 Dose: 50 mg Zolpidem Tartrate (Ambien) 5 mg PO HS PRN; Protocol PRN Reason: Insomnia Last Admin: 10/26/17 21:43 Dose: 5 mg - Labs Labs: 10/27/17 06:30 10/27/17 06:30 PT 13.2 SECONDS (9.4-12.5) H 10/22/17 12:20 INR 1.14 (0.93-1.08) H 10/22/17 12:20 APTT 42.2 Seconds (25.1-36.5) H 10/13/17 15:14 - Constitutional Appears: Chronically Ill - Eye Exam Eye Exam: Normal appearance, PERRL - ENT Exam ENT Exam: Mucous Membranes Moist, Normal Oropharynx - Neck Exam Neck Exam: Normal Inspection - Respiratory Exam Respiratory Exam: Decreased Breath Sounds, NORMAL BREATHING PATTERN - Cardiovascular Exam Cardiovascular Exam: REGULAR RHYTHM, +S1, +S2 - GI/Abdominal Exam GI & Abdominal Exam: Distended, Diminished Bowel Sounds - Neurological Exam Neurological Exam: Altered - Skin Skin Exam: Dry, Warm Assessment and Plan - Assessment and Plan (Free Text) Assessment: 77 year old female with history of dementia,COPD, PAT, Hep C,seizure disorder, aortic aneurysm and cirrhotic liver who is admitted with abdominal wall hematoma , anemia, pleural effusions I spoke with patients daughter Paula via phone. Daughter states she is ill and unable to meet with me today. I explained that palliative services is additional support system in helping family to establish goals of care. Daughter does not want to discuss plan of care over the phone, prefers to meet in person. Daughter intending to visit tomorrow. Plan: Palliative support in establishing goals of care
--- NOTE | 2017-10-27 17:13 | CP.PCM.PN ---
Subjective - Date & Time of Evaluation Date of Evaluation: 10/27/17 Time of Evaluation: 11:10 - Subjective Subjective: seen and examined at the bedside earlier today, chart reviewed. No acute overnight events reported. Patient does report diffuse abdominal discomfort denies nausea, vomiting, shortness of breath or chest pain. Patient had repeat CT scan yesterday report reviewed, large left abdominal wall hematoma similar appearance to prior study, slight increase in pelvic ascites with persistent fluid in the upper abdomen. Positive cirrhosis with splenomegaly and pancreatitis. [facility] Objective - Vital Signs/Intake and Output Vital Signs (last 24 hours): Temp Pulse Resp BP Pulse Ox 99.0 F 74 20 123/94 H 97 10/27/17 08:00 10/27/17 08:00 10/27/17 08:00 10/27/17 08:00 10/27/17 08:00 Intake and Output: 10/27/17 10/27/17 06:59 18:59 Intake Total 120 Output Total 750 Balance -630 - Medications Medications: Current Medications Clonidine HCl (Catapres-Tts3 0.3 Mg/24 Hr) 1 patch TD Q7D@1000 [facility] Last Admin: 10/23/17 09:35 Dose: 1 patch Hydralazine HCl (Apresoline) 10 mg PO QID PRN PRN Reason: for sbp>160 Last Admin: 10/19/17 06:18 Dose: 10 mg Hydralazine HCl (Apresoline) 100 mg PO TID [facility] Last Admin: 10/27/17 12:49 Dose: 100 mg Potassium Chloride/Dextrose/Sod Cl (Potassium Chl 20 Meq In D5-1/2ns) 1,000 mls @ 40 mls/hr IV .Q24H [facility] Levalbuterol HCl (Xopenex) 0.63 mg IH TIDRESP [facility] Last Admin: 10/27/17 13:42 Dose: 0.63 mg Levetiracetam (Keppra) 500 mg PO BID [facility] Last Admin: 10/27/17 12:50 Dose: 500 mg Losartan Potassium (Cozaar) 100 mg PO DAILY [facility] Last Admin: 10/27/17 12:50 Dose: 100 mg Magnesium Oxide (Mag-Ox) 400 mg PO BID [facility] Last Admin: 10/27/17 12:50 Dose: 400 mg Metoprolol Tartrate (Lopressor) 50 mg PO BRKDIN [facility] Last Admin: 10/27/17 08:52 Dose: 50 mg Mirtazapine (Remeron) 15 mg PO HS [facility] Last Admin: 10/26/17 21:44 Dose: 15 mg Mupirocin (Bactroban Ointment) 0 gm TOP BID [facility] Last Admin: 10/27/17 12:50 Dose: 1 applic Nystatin (Nystop Topical Powder) 0 gm TOP Q12 [facility] Last Admin: 10/27/17 09:30 Dose: 1 applic Pantoprazole Sodium (Protonix Ec Tab) 40 mg PO DAILY [facility] Last Admin: 10/27/17 12:51 Dose: 40 mg Potassium Phos/Sodium Phos (Neutra-Phos) 1 pkt PO DAILY [facility] Last Admin: 10/27/17 12:50 Dose: 1 pkt Trazodone HCl (Desyrel) 50 mg PO HS [facility] Last Admin: 10/26/17 21:44 Dose: 50 mg Zolpidem Tartrate (Ambien) 5 mg PO HS PRN; Protocol PRN Reason: Insomnia Last Admin: 10/26/17 21:43 Dose: 5 mg - Labs Labs: 10/27/17 06:30 10/27/17 06:30 PT 13.2 SECONDS (9.4-12.5) H 10/22/17 12:20 INR 1.14 (0.93-1.08) H 10/22/17 12:20 APTT 42.2 Seconds (25.1-36.5) H 10/13/17 15:14 - Constitutional Appears: No Acute Distress - Eye Exam Eye Exam: Normal appearance. absent: Scleral icterus - ENT Exam ENT Exam: Mucous Membranes Moist - Neck Exam Neck Exam: Normal Inspection - Respiratory Exam Respiratory Exam: NORMAL BREATHING PATTERN. absent: Respiratory Distress - Cardiovascular Exam Cardiovascular Exam: +S1, +S2 - GI/Abdominal Exam GI & Abdominal Exam: Distended, Firm, Tenderness, Normal Bowel Sounds. absent: Guarding, Rebound Additional comments: left quaderant Hematoma. LUQ tenderness - Extremities Exam Extremities Exam: Pedal Edema. absent: Calf Tenderness - Neurological Exam Neurological Exam: Alert, Awake, Oriented x3 - Skin Skin Exam: Dry, Warm Assessment and Plan - Assessment and Plan (Free Text) Assessment: Assessment: Abdominal pain New-onset pancreatitis Abdominal hematoma H/O Atrial fibrillation CVA Thoracic aneurysm status post endovascular repair COPD Anemia Plan: Trend H&H and transfuse as necessary Continue PPI Monitor for overt GI bleed lowfat puree diet eval for paracentesis Case discussed with Dr. Clarke covering Dr. Galindo.
--- NOTE | 2017-10-27 19:06 | PN ---
DATE: 10/27/2017 SUBJECTIVE: The patient is seen lying in bed. She is awake, she is alert, she is comfortable. She complains of abdominal pain. She complains of nausea. Appetite is poor. She is not really eating. PHYSICAL EXAMINATION: GENERAL: Elderly lady lying in bed. VITAL SIGNS: Blood pressure 123/94, heart rate 74, respiratory rate 20, temperature 99, T-max is 100. HEENT: Normocephalic, atraumatic, positive pallor. NECK: Supple, no JVD. LUNGS: Bilateral equal air entry, equal expansion. CARDIAC: S1 and S2, regular rate and rhythm, no murmur, no rub. ABDOMEN: Obese, distended, tenderness in the lower abdomen. EXTREMITIES: 2+ pitting edema of the lower extremities. INTAKE AND OUTPUT: 240/1050 LABORATORY DATA: WBC 5, hemoglobin 10, hematocrit 30.9, platelets 92. Sodium 137, potassium 3.7, chloride 110, CO2 of 21, BUN 4, creatinine 0.4, glucose 102, calcium 8.2, albumin 2.5, corrected calcium 9.2, total bilirubin 1.6, AST 37, ALT 28. CT of the abdomen and pelvis done on 10/25, [id number] bilateral pleural effusions with bilateral lower lobe atelectasis, cardiomegaly, pelvic ascites with slight increase, cirrhosis, splenomegaly, pancreatitis. CURRENT MEDICATIONS: Ambien, Apresoline 100 t.i.d., clonidine patch , Cozaar 100, Desyrel 50, Keppra 500 b.i.d., Lopressor 50 b.i.d., mag ox 400 b.i.d., Neutra-Phos 1 packet daily, nystatin, Protonix, Remeron, Xopenex, D5 half normal saline at 60. ASSESSMENT: 1. Acute kidney injury, resolved. 2. Severe intra-abdominal bleed secondary to rectus sheath bleed. 3. Hypertension. 4. Mild hypokalemia. 5. Status post sepsis/pneumonia/urinary tract infection. 6. Atrial fibrillation. 7. Seizure disorder. 8. Cerebrovascular accident. 9. Hepatitis C/cirrhosis/splenomegaly. 10. Peripheral vascular disease. PLAN: 1. Continue low-dose IV fluids since the patient is not really taking anything p.o. 2. Monitor hemoglobin closely. 3. Continue antiseizure medications. 4. Continue current antihypertensives. Jennifer Berg MD
[2017-10-27] MEDS: Potassium Ch 20mEq in D5-1/2NS 1,000 ML IV SCH ×2 (19:15→22:24)
--- NOTE | 2017-10-27 20:30 | PN ---
DATE: 10/27/2017 SUBJECTIVE: The patient is seen in bed, in no acute distress, nontoxic. No fevers and chills. No abdominal pain or diarrhea. OBJECTIVE: VITAL SIGNS: On exam, temperature is 98, blood pressure is 112/70, respiratory rate is 16. HEENT: Examination of HEENT is unremarkable. NECK: Supple. LUNGS: Have decreased breath sounds. HEART: Normal S1 and S2. ABDOMEN: Soft, nontender. LABORATORY EXAMINATION: Reveals a white count of 5.2, hemoglobin of 10, platelets of 92. Chemistries reveal a BUN of 4, creatinine of 0.4, and urinalysis is noted. Microbiology reveals the blood cultures have no growth. The patient had a CAT scan of the abdomen and pelvis is noted. ASSESSMENT AND PLAN: This is a 77-year-old female with systemic inflammatory response syndrome due to an acute drop in her hemoglobin and rectus sheath hematoma, with no evidence of sepsis, currently off antibiotics. The patient was treated for right lower lobe healthcare-associated pneumonia, history of ESBL E. coli and Enterococcus urinary tract infection, history of atrial fibrillation, cerebrovascular accident, bedridden, aortic dissection and history of seizures, thrombocytopenia, hypertension, chronic pain syndrome, and review of orders confirms the patient to be off antibiotics. The patient is at risk for developing nosocomial infections. Ricardo Burgos MD
--- NOTE | 2017-10-27 23:49 | PN ---
DATE: 10/27/2017 REFERRING PHYSICIAN: Albin Forte MD SUBJECTIVE: She is lying in the bed, sleepy, arousable. Denies any headache or rhinitis. No nausea, no vomiting. Mild abdominal pain. No dysuria. No leg pain or leg swelling. OBJECTIVE: GENERAL: In no acute distress. VITAL SIGNS: T-max is 100, temperature is 99.4, heart rate 80, respiratory rate is 18, blood pressure 180/83, pulse ox 97% room air. HEENT: Moist mucous membrane. Crowded airway. NECK: Supple. No JVD. LUNGS: Has fair airflow with rhonchi. HEART: S1 and S2. ABDOMEN: Positive bowel sounds. Has a right side of the abdomen ecchymotic area. Tender to touch. EXTREMITIES: There is no edema. NEUROLOGIC: Awake and follows simple command. MEDICATIONS: She is on Ambien 5 mg at bedtime p.r.n., hydralazine 10 mg q.i.d. p.r.n. also hydralazine 100 mg three times a day p.o. around the clock, bacitracin ointment twice a day, Catapres 0.3 mg weekly, Cozaar 100 mg daily, trazodone 50 mg at bedtime, Keppra 500 mg twice a day, metoprolol tartrate 50 mg twice a day, magnesium oxide 400 mg twice a day, Neutra-Phos one pack daily, potassium with IV fluid, Protonix 40 mg daily, Remeron 50 mg at bedtime, Xopenex 0.63 three times a day. LABORATORY DATA: Shows hemoglobin 10.1, hematocrit 30.9, WBC 5.2, platelet is 92. Sodium 137, potassium 3.7, chloride 110, bicarbonate is 21, BUN 4, creatinine 0.4, glucose 102, calcium is 8.2, magnesium 1.5, total bili 1.6, AST 37, ALT 28, alk phos is 61. Albumin is 2.5. Microbiology, blood culture, urine culture, there is no growth. IMPRESSION AND PLAN: Abdominal wall and pelvic hematoma with anemia requiring transfusion, pleural effusion, atelectasis, chronic obstructive lung disease, seizure disorder, paroxysmal atrial fibrillation, history of hepatitis C, aortic aneurysm, cirrhotic liver, hypertension. Pulmonary point of view, keep head elevated at 45 degrees. May have sleep apnea, but refusing to use CPAP/BiPAP; off anticoagulation; high risk for thromboembolic disease, but also has a life-threatening bleed; keep head elevated at 45 degrees; bronchodilator; aspiration precaution. Thank you and we will follow with you. Anushka Barreto MD
--- NOTE | 2017-10-27 23:50 | PN ---
DATE: ADDENDUM I personally examined this patient and reviewed her laboratory data. I agree with Devika Ayoub' assessment and recommendations. The patient has cirrhosis of the liver. Her long-term prognosis is poor. Continue supportive care. Klever Clarke MD
[2017-10-28] MEDS: Levalbuterol 0.63 MG/3 ML Inhal Soln UD IH SCH ×3 (07:25→21:18)
--- NOTE | 2017-10-28 09:53 | PN ---
DATE: 10/27/2017 SUBJECTIVE: The patient is more awake, more alert, responding, talking to me. She complained of pain in both legs. She ate some today, but she has no other complaints. She seems stable and she seems better and feel better. PHYSICAL EXAMINATION: VITAL SIGNS: On 10/27/2017, temperature 99, heart rate 74, blood pressure 123/94, respirations 20, and saturations 97% on room air. HEAD AND NECK: Normal. No JVD. No thyromegaly. CHEST: Clear. Diminished breath sounds bilaterally. CARDIAC: First sound and second normal. Regular. ABDOMEN: Soft. There is mild tenderness in the left side and lower abdomen, very minimal. Bowels sounds intact. EXTREMITIES: There is mild edema, but better and heel cushions in between. NEUROLOGIC: Left hemiplegia, need contractures from being bedridden in both lower extremities. LABORATORY DATA: Shows white count 5.2, hemoglobin 10.1, hematocrit 30.9, and platelets 92. Chemistry: Sodium 137, potassium 3.7, chloride 110, bicarbonate 21, BUN 4, creatinine 0.4, and bilirubin 1.6. AST 37, ALT and alkaline phosphatase normal. IMPRESSION: 1. Abdominal wall bleeding, seems stable. H and H stable. Off any anticoagulants. I will start aspirin 12 hours after specialist. 2. Chronic liver cirrhosis. 3. Ascites. 4. Thrombocytopenia: I will discuss as per Dr. Galindo. 5. Anemia. 6. Thrombocytopenia. 7. Hypertension. 8. Chronic obstructive pulmonary disease. 9. Obstructive sleep apnea. 10. Chronic atrial fibrillation. 11. Hypercholesterolemia. 12. Seizure disorder. 13. Abdominal aortic aneurysm. 14. Severe carotid stenosis. 15. Chronic hepatitis C. PLAN: Continue current treatment and the patient will discuss with the other specialists. Current medications are Ambien 5 mg at night, hydralazine 100 mg 3 times a day, Bactroban local to the skin, Catapres 0.3 mg actually once weekly, Cozaar 100 mg, trazodone 50 mg, Keppra 500 mg b.i.d., Lopressor 50 mg b.i.d., magnesium 400 mg b.i.d., Neutra-Phos 1 packet p.o. daily, Nystatin cream to the groin area, IV fluid with potassium running at 40 mL per hour, Protonix 40 p.o. daily, Remeron 15 mg p.o. at bedtime, and Xopenex nebulizer four times a day. The patient also has SCDs in both lower extremities for DVT prophylaxis. I will continue current therapy. The patient is at risk for thromboembolic phenomenon because she is off anticoagulation. She is at risk for nosocomial pneumonia. The patient's prognosis in general is poor. Supportive care. Discussed with the daughter. The patient is DNR/DNI. We will further reevaluate palliative care on the case. We will discuss further with the family. Albin Forte MD
[2017-10-28] MEDS: Pantoprazole 40 mg EC Tab PO SCH (10:31)
[2017-10-28] MEDS: Potassium & Sodium Phosphate PO SCH (10:31)
[2017-10-28] MEDS: levETIRAcetam 500 mg/5ml UD cups PO SCH ×2 (10:31→17:59)
[2017-10-28] MEDS: Magnesium Oxide 400 mg Tab UD PO SCH ×2 (10:31→17:59)
[2017-10-28 12:38] LABS: HEMOGLOBIN 11.3 g/dL (12.0-16.0); MEAN CELL VOLUME 92.6 fl (80.0-105.0); MEAN CORPUSCULAR HEMOGLOBIN 30.9 pg (25.0-35.0); MEAN CORPUSCULAR HGB CONC 33.3 g/dl (31.0-37.0); MEAN PLATELET VOLUME 9.6 fl (7.0-11.0); RBC 3.66 10^6/uL (3.5-6.1); RED CELL DISTRIBUTION WIDTH 18.6 % (11.5-14.5); WHITE BLOOD COUNT 7.5 10^3/ul (4.5-11.0)
[2017-10-28 12:49] LABS: ALBUMIN 2.7 g/dL (3.0-4.8); ALT/SGPT 31 U/L (7-56); AST/SGOT 34 U/L (14-36); BLOOD UREA NITROGEN 4 mg/dL (7-21); CALCIUM 8.3 mg/dL (8.4-10.5); GFR AFRICAN-AMERICAN > 60; GFR NON-AFRICAN AMERICAN > 60
[2017-10-28 12:50] LABS: ALB/GLOB RATIO 0.8 (1.1-1.8)
--- NOTE | 2017-10-28 13:59 | CP.PCM.PN ---
Subjective - Date & Time of Evaluation Date of Evaluation: 10/28/17 Time of Evaluation: 10:45 - Subjective Subjective: Seen and examined at the bedside earlier today, chart reviewed. No acute overnight events recorded. Patient is awaiting to go for paracentesis. Patient denies nausea, no reports of vomiting. Patient does have abdominal tenderness and abdomen appears distended and firm. Objective - Vital Signs/Intake and Output Vital Signs (last 24 hours): Temp Pulse Resp BP Pulse Ox 98.1 F 70 18 173/74 H 97 10/28/17 08:00 10/28/17 10:31 10/28/17 08:00 10/28/17 10:31 10/28/17 08:00 Intake and Output: 10/28/17 10/28/17 06:59 18:59 Intake Total 60 Output Total 500 Balance -440 - Medications Medications: Current Medications Clonidine HCl (Catapres-Tts3 0.3 Mg/24 Hr) 1 patch TD Q7D@1000 [facility] Last Admin: 10/23/17 09:35 Dose: 1 patch Hydralazine HCl (Apresoline) 10 mg PO QID PRN PRN Reason: for sbp>160 Last Admin: 10/19/17 06:18 Dose: 10 mg Hydralazine HCl (Apresoline) 100 mg PO TID [facility] Last Admin: 10/28/17 10:31 Dose: 100 mg Potassium Chloride/Dextrose/Sod Cl (Potassium Chl 20 Meq In D5-1/2ns) 1,000 mls @ 40 mls/hr IV .Q24H [facility] Last Admin: 10/27/17 22:24 Dose: 40 mls/hr Levalbuterol HCl (Xopenex) 0.63 mg IH TIDRESP [facility] Last Admin: 10/28/17 07:25 Dose: 0.63 mg Levetiracetam (Keppra) 500 mg PO BID [facility] Last Admin: 10/28/17 10:31 Dose: 500 mg Losartan Potassium (Cozaar) 100 mg PO DAILY [facility] Last Admin: 10/28/17 10:31 Dose: 100 mg Magnesium Oxide (Mag-Ox) 400 mg PO BID [facility] Last Admin: 10/28/17 10:31 Dose: 400 mg Metoprolol Tartrate (Lopressor) 50 mg PO BRKDIN [facility] Last Admin: 01/16/18 08:26 Dose: 50 mg Mirtazapine (Remeron) 15 mg PO HS [facility] Last Admin: 10/27/17 23:30 Dose: 15 mg Mupirocin (Bactroban Ointment) 0 gm TOP BID [facility] Last Admin: 10/28/17 10:40 Dose: 1 applic Pantoprazole Sodium (Protonix Ec Tab) 40 mg PO DAILY [facility] Last Admin: 10/28/17 10:31 Dose: 40 mg Potassium Phos/Sodium Phos (Neutra-Phos) 1 pkt PO DAILY [facility] Last Admin: 10/28/17 10:31 Dose: 1 pkt Trazodone HCl (Desyrel) 50 mg PO HS [facility] Last Admin: 10/27/17 22:04 Dose: 50 mg Zolpidem Tartrate (Ambien) 5 mg PO HS PRN; Protocol PRN Reason: Insomnia Last Admin: 10/27/17 22:04 Dose: 5 mg - Labs Labs: 10/28/17 12:30 10/28/17 12:30 PT 13.2 SECONDS (9.4-12.5) H 10/22/17 12:20 INR 1.14 (0.93-1.08) H 10/22/17 12:20 APTT 42.2 Seconds (25.1-36.5) H 10/13/17 15:14 - Constitutional Appears: No Acute Distress - Eye Exam Eye Exam: Normal appearance. absent: Scleral icterus - ENT Exam ENT Exam: Mucous Membranes Moist - Neck Exam Neck Exam: Normal Inspection - Respiratory Exam Respiratory Exam: Decreased Breath Sounds, NORMAL BREATHING PATTERN. absent: Respiratory Distress - Cardiovascular Exam Cardiovascular Exam: +S1, +S2 - GI/Abdominal Exam GI & Abdominal Exam: Distended, Firm, Tenderness (diffuse tenderness), Normal Bowel Sounds. absent: Guarding, Rebound - Neurological Exam Neurological Exam: Alert, Awake - Skin Skin Exam: Dry, Warm Assessment and Plan - Assessment and Plan (Free Text) Assessment: Assessment: Abdominal pain/Distention/Ascites New-onset pancreatitis Abdominal hematoma H/O Atrial fibrillation CVA Thoracic aneurysm status post endovascular repair COPD Anemia Plan: Trend H&H and transfuse as necessary Continue PPI Monitor for overt GI bleed back on clear, for paracentesis today Case discussed with Dr. Clarke covering Dr. Galindo.
--- NOTE | 2017-10-28 15:58 | PN ---
DATE: 10/28/2017 LOCATION: The patient is in room 571, bed 1. REASON FOR CONSULTATION AND FOLLOWUP: Paroxysmal atrial fibrillation, rectus sheath hematoma, severe anemia, altered mental status, status post multiple blood transfusions, and old CVA. SUBJECTIVE: The patient looks to be more alert, lying flat in bed without any shortness of breath. No history of chest pain. PHYSICAL EXAMINATION: VITAL SIGNS: Blood pressure 173/74, respirations 18, pulse 70, and temperature 98.1. HEENT: Head is normocephalic. Pupils normal. Conjunctivae slightly pale. NECK: JVP low. Carotids equal. THORAX: AP diameter normal. LUNGS: No significant rales. CARDIOVASCULAR: S1 and S2. ABDOMEN: Soft, no tenderness. No organomegaly. EXTREMITIES: No clubbing. No cyanosis. LABORATORY DATA: WBC 5.2, hemoglobin 10.1, hematocrit 30.9, and platelets 92. Sodium 137, potassium 3.7, BUN 4, and creatinine 0.4. AST 37 and ALT 28. Total protein 5.5 and albumin 2.5. DIAGNOSES: Anemia, rectus sheath hematoma, blood transfusion, paroxysmal atrial fibrillation, severe protein-calorie malnutrition, old cerebrovascular accident. On admission, the patient had supratherapeutic INR. The patient was on Coumadin at home. History of cardiac catheterization, history of nonobstructive coronary artery disease, history of endovascular stent, and history of cerebrovascular accident with contracture on the left side. PLAN: The patient is on hydralazine 100 mg t.i.d., clonidine 0.3 mg/24-hour patch weekly, Cozaar 100 mg daily, Desyrel 50 mg p.o. at bedtime, Keppra 500 b.i.d., metoprolol 50 b.i.d., and Xopenex hand nebulizer therapy. We will follow. Anushka Monroy MD
--- NOTE | 2017-10-28 18:43 | PN ---
DATE: SUBJECTIVE: The patient is currently seen, noncommunicative, and lying on her side. She is scheduled for paracentesis today with a possible discharge from the hospital tomorrow. MEDICATIONS: Medication list reviewed. The patient is currently on Ambien, Apresoline, mupirocin, Catapres patch, losartan, Desyrel, Keppra, Lopressor, magnesium oxide, Neutra-Phos, 40 mL an hour D5W with 20 mEq of potassium, Protonix, Remeron, and Xopenex. OBJECTIVE: INTAKE AND OUTPUT: Intake charted at 60 mL plus IV fluid hydration and output is 500 mL. VITAL SIGNS: Blood pressure 173/74, heart rate is 70, temperature 98.1, and respiratory rate is 18. HEENT: Normocephalic and atraumatic. Conjunctivae are pink. Sclerae are nonicteric. NECK: Supple. No neck vein distention. CHEST: Clear to auscultation and percussion. No rales, rhonchi, or wheezing. CARDIOVASCULAR: Regular rate and rhythm without murmurs, rubs, or gallops. ABDOMEN: Soft. Nondistended. Bowel sounds normal. No masses appreciated. No fluid wave appreciated. EXTREMITIES: Show no pitting edema. No cyanosis or clubbing. LABORATORY DATA AND IMAGING: CBC today white blood cell count 7.5, hemoglobin improved at 11.3, and platelet count is 111,000. Chemistry show normal electrolytes. Slight elevation of chloride at 109. BUN is with a creatinine of 0.4. Glucose is 104. Calcium is 8.3. Magnesium from 2 days ago was 1.5 and the patient is on magnesium supplements. Bilirubin is 1.8; otherwise, her liver enzymes are normal. Albumin is low at 2.7. ASSESSMENT: 1. Status post acute renal failure. BUN and creatinine are back to baseline levels. 2. Status post severe intra-abdominal bleed secondary to rectus sheath bleed secondary to possible trauma and fall. The patient received a total of 7 units of packed red blood cells. Her hemoglobin is now stable. 3. History of hypertension. Blood pressure control appears to be variable. Presently, her systolics are elevated. Yesterday, her blood pressure control was better. 4. Status post mild hypokalemia and hypomagnesemia. The patient has received supplements both orally and IV. 5. Status post possible sepsis with pneumonia and possible urinary tract infection. The patient had completed a course of antibiotic therapy. 6. History of atrial fibrillation. The patient had been on chronic anticoagulation. Medications are presently on hold because of her rectus sheath bleed. 7. History of peripheral vascular disease, status post thoracic aortic aneurysm with endovascular graft repair. 8. Past history of cerebrovascular accident. 9. History of hepatitis C with cirrhosis, splenomegaly, and ascites. The patient is scheduled for a paracentesis today. 10. History of seizure disorder. She is seizure free on Keppra therapy. 11. History of chronic stable thrombocytopenia. Platelet count today is 111,000. PLAN: 1. From a metabolic and renal standpoint, the patient is stable. I am concerned about mild elevations of her systolic blood pressure readings. She will continue on present medications. The patient is on hydralazine, losartan, and Catapres. I will add low-dose calcium-channel poli therapy. 2. Agree with plan for paracentesis. 3. Discharge planning. Jaycob Cummins MD
--- NOTE | 2017-10-28 18:44 | PN ---
PULMONARY PROGRESS NOTE DATE: 10/28/2017 REFERRING PHYSICIAN: Albin Forte MD SUBJECTIVE: She is lying in the bed, sleepy, arousable. Night was unremarkable. No cough. No sputum production. No nausea. No vomiting. Still have abdominal discomfort. No leg swelling. OBJECTIVE: GENERAL: In no acute distress. VITAL SIGNS: Temperature is 98, heart rate is 75, respiratory rate is 18, blood pressure 173/74 and pulse ox 97% on 2 L nasal cannula. HEENT: Moist mucous membrane. Crowded airway. NECK: Supple. No JVD. LUNGS: Has fair airflow with rhonchi. HEART: S1 and S2. ABDOMEN: Soft and mild tenderness on the ecchymotic area. EXTREMITIES: There is no edema. NEUROLOGIC: Awake and follows simple command. MEDICATIONS: She is on Ambien 5 mg at bedtime p.r.n., hydralazine 10 mg four times a day p.r.n., Bactroban on affected area twice a day, Catapres 0.3 q. 7 days, Cozaar 100 mg daily, trazodone 50 mg at bedtime, Keppra 500 mg twice a day, metoprolol tartrate 50 mg twice a day, magnesium oxide 400 mg twice a day, K-Phos is one pack daily, Norvasc 5 mg daily, IV Protonix 40 mg daily, 50 mg at bedtime and Xopenex inhale q. 8 hour. LABORATORY DATA: Shows hemoglobin 11.3, hematocrit 33.9, WBC 7.5 and platelets are 111. Sodium 137, potassium 3.9, chloride 109, bicarbonate is 21, BUN 4, creatinine 0.4, glucose 104, calcium is 8.3. AST is 34, ALT 31, alk phos is 66 and albumin is 2.7. Microbiology; blood culture, urine culture and nares unremarkable. IMPRESSION AND PLAN: Abdominal wall and pelvic hematoma with anemia requiring transfusion, pleural effusion, atelectasis, chronic obstructive lung disease, seizure disorder, paroxysmal atrial fibrillation, history of hepatitis C, aortic aneurysm, cirrhotic liver, hypertension. Pulmonary point of view, doing okay, keep head elevated at 45 degrees. Sleep apnea precaution, avoid sedation, off anticoagulation because high risk for bleed, high risk of pressure ulcers, aspiration precaution. Thank you and we will follow with you. Anushka Barreto MD [facility] # [id number]
--- NOTE | 2017-10-28 19:41 | PN ---
DATE: SUBJECTIVE: A 77-year-old female seen at bedside for continued evaluation and management of a left superficial heel ulceration and a right heel deep tissue injury. The patient is resting comfortably and is unable to answer any questions. PHYSICAL EXAMINATION: VITAL SIGNS: The patient's vital signs reveal a temperature of 98.1, pulse rate of 75, blood pressure 184/87, respiratory rate of 18. EXTREMITIES: Nonpalpable pedal pulses noted bilaterally. Capillary filling time is delayed. Temperature gradient is reversed bilaterally. Protective sensation is diminished using 5.07 g monofilament wire testing bilaterally. There is noted to be a superficial ulceration on the plantar aspect of the left heel secondary to deep tissue injury with surrounding erythema. There is primarily granular tissue present, minimal serous drainage, no purulence, no malodor, no fluctuance. No signs of infection. There is noted to be a deep tissue injury or ecchymosis noted on the dorsolateral aspect of the right foot. LABORATORY DATA: Laboratory findings reveal a white count of 7.5, hemoglobin of 11.3, hematocrit of 33.9, platelet count of 111. ASSESSMENT: A 77-year-old female with a superficial left plantar ulceration and a deep tissue injury to the right heel. PLAN: The patient was seen and evaluated at bedside. Both areas were cleansed with normal sterile saline. We will apply Optifoam dressing to both wounds and we will continue to use the Multi Podus boots at all times. The patient will be seen and followed daily. Richard Barger DPM
--- NOTE | 2017-10-28 22:49 | PN ---
DATE: ADDENDUM This is an addendum to a progress note performed by SABINA Delacruz. I have personally examined this patient and reviewed her laboratory data. I agree with Devika Ayoub' assessment and recommendations. The patient does have moderate degree of ascites. She is to undergo large volume paracentesis. Klever Clarke MD
--- NOTE | 2017-10-29 02:58 | PN ---
DATE: 10/28/2017 SUBJECTIVE: Patient seen early this morning in room 571. OBJECTIVE: GENERAL: In no acute distress, however, overall in poor condition. VITAL SIGNS: On exam temperature is 98, T-max is 100, respiratory rate of 18, heart rate of 75, examination of blood pressure is 158/89. HEENT: Examination of HEENT is unremarkable. NECK: Supple. LUNGS: Have decreased breath sounds. CARDIAC: Heart normal S1 and S2. ABDOMEN: Soft . LABORATORY DATA: Laboratory examination reveals the patient's white count of 7.5, hemoglobin 11, platelets of 111, BUN of 4, creatinine of 0.4. Procalcitonin is noted at 0.34. Urinalysis is noted. ASSESSMENT AND PLAN: This is a 76-year-old female with systemic inflammatory response syndrome due to an acute drop in her hemoglobin, rectus sheath hematoma, no evidence of sepsis. The patient was treated for right lower lobe healthcare-associated pneumonia. Patient also has history of extended spectrum beta-lactamases Escherichia coli and Enterococcus urinary tract infection, history of atrial fibrillation, cerebrovascular accident, bedridden, aortic dissection, history of seizures, thrombocytopenia, hypertension, chronic pain syndrome, and review of orders. The patient is at risk for developing nosocomial infections. Overall, for this patient who appears end stage. Ricardo Burgos MD cc:
[2017-10-29 07:19] LABS: HEMOGLOBIN 11.5 g/dL (12.0-16.0); MEAN CELL VOLUME 93.1 fl (80.0-105.0); MEAN CORPUSCULAR HEMOGLOBIN 30.6 pg (25.0-35.0); MEAN CORPUSCULAR HGB CONC 32.9 g/dl (31.0-37.0); MEAN PLATELET VOLUME 9.4 fl (7.0-11.0); RBC 3.76 10^6/uL (3.5-6.1); RED CELL DISTRIBUTION WIDTH 18.7 % (11.5-14.5); WHITE BLOOD COUNT 12.3 10^3/ul (4.5-11.0)
[2017-10-29 07:46] LABS: ALB/GLOB RATIO 0.9 (1.1-1.8); ALBUMIN 2.7 g/dL (3.0-4.8); ALT/SGPT 25 U/L (7-56); AST/SGOT 38 U/L (14-36); BLOOD UREA NITROGEN 8 mg/dL (7-21); CALCIUM 8.3 mg/dL (8.4-10.5); GFR AFRICAN-AMERICAN > 60; GFR NON-AFRICAN AMERICAN > 60; MAGNESIUM 1.5 mg/dL (1.7-2.2)
[2017-10-29] MEDS: Levalbuterol 0.63 MG/3 ML Inhal Soln UD IH SCH ×3 (08:02→13:55)
[2017-10-29] MEDS: Potassium Ch 20mEq in D5-1/2NS 1,000 ML IV SCH (08:12)
--- NOTE | 2017-10-29 09:29 | CP.PCM.PN ---
<Isa Larson - Last Filed: 10/29/17 09:26> Subjective - Date & Time of Evaluation Date of Evaluation: 10/29/17 Time of Evaluation: 09:26 - Subjective Subjective: Podiatry Progress Note - Dr. Arteaga/Denita 77 year old female patient seen and evaluated at bedside for left heel wound and right heel DTI. Patient is AAO x 3 and NAD resting comfortably in bed. Denies any new onset pain or acute overnight events to lower extremity. Pt is more lethargic upon visit today but expresses no pedal complaints. Multipodus boots present to lower extremities bilaterally. Denies N/V/F/D/C/SOB/posterior calf pain when squeezed Objective - Vital Signs/Intake and Output Vital Signs (last 24 hours): Temp Pulse Resp BP Pulse Ox 98.2 F 87 20 156/80 H 98 10/29/17 00:00 10/29/17 08:28 10/29/17 00:00 10/29/17 08:28 10/29/17 00:00 Intake and Output: 10/29/17 10/29/17 06:59 18:59 Intake Total 30 Output Total 300 Balance -270 - Medications Medications: Current Medications Amlodipine Besylate (Norvasc) 5 mg PO DAILY REPLACED BY [facility] Last Admin: 10/28/17 15:03 Dose: Not Given Clonidine HCl (Catapres-Tts3 0.3 Mg/24 Hr) 1 patch TD Q7D@1000 REPLACED BY [facility] Last Admin: 10/23/17 09:35 Dose: 1 patch Hydralazine HCl (Apresoline) 10 mg PO QID PRN PRN Reason: for sbp>160 Last Admin: 10/19/17 06:18 Dose: 10 mg Hydralazine HCl (Apresoline) 100 mg PO TID REPLACED BY [facility] Last Admin: 10/28/17 17:58 Dose: 100 mg Potassium Chloride/Dextrose/Sod Cl (Potassium Chl 20 Meq In D5-1/2ns) 1,000 mls @ 40 mls/hr IV .Q24H REPLACED BY [facility] Last Admin: 10/29/17 08:12 Dose: 40 mls/hr Levalbuterol HCl (Xopenex) 0.63 mg IH TIDRESP REPLACED BY [facility] Last Admin: 10/29/17 08:02 Dose: 0.63 mg Levetiracetam (Keppra) 500 mg PO BID REPLACED BY [facility] Last Admin: 10/28/17 17:59 Dose: 500 mg Losartan Potassium (Cozaar) 100 mg PO DAILY [facility]PL[facility] BY [facility] Last Admin: 10/28/17 10:31 Dose: 100 mg Magnesium Oxide (Mag-Ox) 400 mg PO BID REPLACED BY [facility] Last Admin: 10/28/17 17:59 Dose: 400 mg Metoprolol Tartrate (Lopressor) 50 mg PO BRKDIN REPLACED BY [facility] Last Admin: 10/29/17 08:28 Dose: 50 mg Mirtazapine (Remeron) 15 mg PO HS REPLACED BY [facility] Last Admin: 10/28/17 21:28 Dose: 15 mg Mupirocin (Bactroban Ointment) 0 gm TOP BID REPLACED BY [facility] Last Admin: 10/28/17 17:59 Dose: Not Given Pantoprazole Sodium (Protonix Ec Tab) 40 mg PO DAILY [facility]PL[facility]ED BY [facility] Last Admin: 10/28/17 10:31 Dose: 40 mg Potassium Phos/Sodium Phos (Neutra-Phos) 1 pkt PO DAILY [facility]PL[facility]ED BY [facility] Last Admin: 10/28/17 10:31 Dose: 1 pkt Trazodone HCl (Desyrel) 50 mg PO HS REPLACED BY [facility] Last Admin: 10/28/17 21:28 Dose: 50 mg Zolpidem Tartrate (Ambien) 5 mg PO HS PRN; Protocol PRN Reason: Insomnia Last Admin: 10/27/17 22:04 Dose: 5 mg - Labs Labs: 10/29/17 06:45 10/29/17 06:45 PT 13.2 SECONDS (9.4-12.5) H 10/22/17 12:20 INR 1.14 (0.93-1.08) H 10/22/17 12:20 APTT 42.2 Seconds (25.1-36.5) H 10/13/17 15:14 - Constitutional Appears: Well, Non-toxic, No Acute Distress - Extremities Exam Additional comments: Vasc: DP pulses weakly palpable 1/4 B/L. PT pulses nonpalpable B/L. CFT is delayed x10 digits. Temperature gradient cool to cool B/L. Neuro: protective sensation grossly diminished Derm: Superficial ulceration noted to plantar aspect of left heel secondary to deep tissue injury with surrounding erythema; no sanguinous drainage present and minimal serous drainage noted; no purulence, no malodor, no fluctuance - no clinical signs of infection noted. Ecchymosis noted to dorsolateral right foot- improving Ortho: No tenderness noted to palpation of left plantar heel wound - Neurological Exam Neurological Exam: Alert, Awake - Psychiatric Exam Psychiatric exam: Normal Affect, Normal Mood Assessment and Plan - Assessment and Plan (Free Text) Assessment: 76 year old female with 1) left heel plantar ulceration, 2) left heel posterior DTI, 3) right heel posterior DTI Plan: Patient seen and evaluated at bedside Plan discussed with attending Dr. Arteaga Afebrile, WBC 12.3 LE US: Chronic left popliteal and tibial DVT Wound to left heel dressed with bactroban and optifoam Multipodus boots reapplied to B/L lower extremities Podiatry will continue to follow while patient in house <Bettie Arteaga - Last Filed: 10/31/17 17:58> Objective - Vital Signs/Intake and Output Vital Signs (last 24 hours): Temp Pulse Resp BP Pulse Ox 98.2 F 98 H 18 130/64 97 10/30/17 08:16 10/30/17 10:30 10/30/17 08:39 10/30/17 16:17 10/30/17 08:16 - Labs Labs: 10/30/17 05:30 10/30/17 05:30 PT 13.2 SECONDS (9.4-12.5) H 10/22/17 12:20 INR 1.14 (0.93-1.08) H 10/22/17 12:20 APTT 42.2 Seconds (25.1-36.5) H 10/13/17 15:14 Attending/Attestation - Attestation I have personally seen and examined this patient.: Yes I have fully participated in the care of the patient.: Yes I have reviewed all pertinent clinical information, including history, physical exam and plan: Yes
[2017-10-29] MEDS ORDERED: Magnesium Sulfate 1 gm in D5W 1 GM/100 ML BAG IVPB ONE (10:01)
[2017-10-29] MEDS: Pantoprazole 40 mg EC Tab PO SCH (10:06)
[2017-10-29] MEDS: levETIRAcetam 500 mg/5ml UD cups PO SCH ×2 (10:06→17:26)
[2017-10-29] MEDS: Magnesium Oxide 400 mg Tab UD PO SCH ×2 (10:06→17:27)
[2017-10-29] MEDS: Potassium & Sodium Phosphate PO SCH (10:07)
[2017-10-29] MEDS ORDERED: oxyCODONE 15 mg Immediate Release Tab PO PRN (11:35)
--- NOTE | 2017-10-29 13:30 | CP.PCM.PN ---
Subjective - Date & Time of Evaluation Date of Evaluation: 10/29/17 Time of Evaluation: 11:00 - Subjective Subjective: Lethargic, opens eyes, responds to simple questions. No acute changes Objective - Vital Signs/Intake and Output Vital Signs (last 24 hours): Temp Pulse Resp BP Pulse Ox 97.2 F L 83 20 169/76 H 96 10/29/17 07:00 10/29/17 10:07 10/29/17 07:00 10/29/17 10:07 10/29/17 07:00 Intake and Output: 10/29/17 10/29/17 06:59 18:59 Intake Total 30 Output Total 300 Balance -270 - Medications Medications: Current Medications Amlodipine Besylate (Norvasc) 10 mg PO DAILY [facility] Last Admin: 10/29/17 11:11 Dose: Not Given Clonidine HCl (Catapres-Tts3 0.3 Mg/24 Hr) 1 patch TD Q7D@1000 [facility] Last Admin: 10/23/17 09:35 Dose: 1 patch Hydralazine HCl (Apresoline) 10 mg PO QID PRN PRN Reason: for sbp>160 Last Admin: 10/19/17 06:18 Dose: 10 mg Hydralazine HCl (Apresoline) 100 mg PO TID [facility] Last Admin: 10/29/17 10:07 Dose: 100 mg Potassium Chloride/Dextrose/Sod Cl (Potassium Chl 20 Meq In D5-1/2ns) 1,000 mls @ 40 mls/hr IV .Q24H [facility] Last Admin: 10/29/17 08:12 Dose: 40 mls/hr Levalbuterol HCl (Xopenex) 0.63 mg IH TIDRESP [facility] Last Admin: 10/29/17 08:02 Dose: 0.63 mg Levetiracetam (Keppra) 500 mg PO BID [facility] Last Admin: 10/29/17 10:06 Dose: 500 mg Losartan Potassium (Cozaar) 100 mg PO DAILY [facility] Last Admin: 10/29/17 10:06 Dose: 100 mg Magnesium Oxide (Mag-Ox) 400 mg PO BID [facility] Last Admin: 10/29/17 10:06 Dose: 400 mg Metoprolol Tartrate (Lopressor) 50 mg PO BRKDIN [facility] Last Admin: 10/29/17 08:28 Dose: 50 mg Mirtazapine (Remeron) 15 mg PO HS [facility] Last Admin: 10/28/17 21:28 Dose: 15 mg Mupirocin (Bactroban Ointment) 0 gm TOP BID [facility] Last Admin: 10/29/17 10:07 Dose: Not Given Oseltamivir Phosphate (Tamiflu Cap) 75 mg PO DAILY [facility] PRN Reason: Protocol Stop: 11/03/17 11:52 Last Admin: 10/29/17 12:08 Dose: Not Given Oxycodone HCl (Oxycodone Immediate Release Tab) 15 mg PO Q8H PRN PRN Reason: Pain, severe (8-10) Pantoprazole Sodium (Protonix Ec Tab) 40 mg PO DAILY [facility] Last Admin: 10/29/17 10:06 Dose: 40 mg Potassium Phos/Sodium Phos (Neutra-Phos) 1 pkt PO DAILY [facility] Last Admin: 10/29/17 10:07 Dose: 1 pkt Trazodone HCl (Desyrel) 50 mg PO HS [facility] Last Admin: 10/28/17 21:28 Dose: 50 mg Zolpidem Tartrate (Ambien) 5 mg PO HS PRN; Protocol PRN Reason: Insomnia Last Admin: 10/27/17 22:04 Dose: 5 mg - Labs Labs: 10/29/17 06:45 10/29/17 06:45 PT 13.2 SECONDS (9.4-12.5) H 10/22/17 12:20 INR 1.14 (0.93-1.08) H 10/22/17 12:20 APTT 42.2 Seconds (25.1-36.5) H 10/13/17 15:14 - Constitutional Appears: Cachectic, Chronically Ill - Eye Exam Eye Exam: Normal appearance, PERRL - ENT Exam ENT Exam: Mucous Membranes Moist, Normal Oropharynx - Respiratory Exam Respiratory Exam: Decreased Breath Sounds, Rhonchi - Cardiovascular Exam Cardiovascular Exam: Irregular Rhythm, +S1, +S2 - GI/Abdominal Exam GI & Abdominal Exam: Distended, Hypoactive Bowel Sounds - Neurological Exam Neurological Exam: Altered - Skin Skin Exam: Dry, Warm Assessment and Plan - Assessment and Plan (Free Text) Assessment: 77 year old female with history of cirrhosis, dementia, anemia who was admitted with abdominal wall hematoma, sepsis, pancreatitis, ascites and anemia Jermaine Dean and I spoke with patients daughter Nicol via phone. Medical condition and prognosis reviewed with daughter. Lengthy discussion regarding goals of care ensued. Questions answered. Option for hospice care introduced. Hospice services explained in detail. Questions answered. Option also offered for NH placement with or without hospice care. Nicol states she will discuss these options with her sister, Paula. Psychosocial support given Time spent in goals of care and hospice discursion, 30 minutes Plan: Palliative support in establishing goals of care Hospice discussion
--- NOTE | 2017-10-29 13:31 | CP.PCM.PN ---
Subjective - Date & Time of Evaluation Date of Evaluation: 10/29/17 Time of Evaluation: 11:15 - Subjective Subjective: Seen and examined at the bedside earlier today, chart reviewed. Patient is bleeding to go for paracentesis today. Patient appears lethargic but responsive. No reports of nausea vomiting. Patient has abdominal discomfort mostly to the left quadrant. No reports of diarrhea or any overt GI bleeding. Objective - Vital Signs/Intake and Output Vital Signs (last 24 hours): Temp Pulse Resp BP Pulse Ox 97.2 F L 83 20 169/76 H 96 10/29/17 07:00 10/29/17 10:07 10/29/17 07:00 10/29/17 10:07 10/29/17 07:00 Intake and Output: 10/29/17 10/29/17 06:59 18:59 Intake Total 30 Output Total 300 Balance -270 - Medications Medications: Current Medications Amlodipine Besylate (Norvasc) 10 mg PO DAILY [facility] Last Admin: 10/29/17 11:11 Dose: Not Given Clonidine HCl (Catapres-Tts3 0.3 Mg/24 Hr) 1 patch TD Q7D@1000 [facility] Last Admin: 10/23/17 09:35 Dose: 1 patch Hydralazine HCl (Apresoline) 10 mg PO QID PRN PRN Reason: for sbp>160 Last Admin: 10/19/17 06:18 Dose: 10 mg Hydralazine HCl (Apresoline) 100 mg PO TID [facility] Last Admin: 10/29/17 13:23 Dose: Not Given Potassium Chloride/Dextrose/Sod Cl (Potassium Chl 20 Meq In D5-1/2ns) 1,000 mls @ 40 mls/hr IV .Q24H [facility] Last Admin: 10/29/17 08:12 Dose: 40 mls/hr Levalbuterol HCl (Xopenex) 0.63 mg IH TIDRESP [facility] Last Admin: 10/29/17 08:02 Dose: 0.63 mg Levetiracetam (Keppra) 500 mg PO BID [facility] Last Admin: 10/29/17 10:06 Dose: 500 mg Losartan Potassium (Cozaar) 100 mg PO DAILY [facility] Last Admin: 10/29/17 10:06 Dose: 100 mg Magnesium Oxide (Mag-Ox) 400 mg PO BID [facility] Last Admin: 10/29/17 10:06 Dose: 400 mg Metoprolol Tartrate (Lopressor) 50 mg PO BRKDIN [facility] Last Admin: 10/29/17 08:28 Dose: 50 mg Mirtazapine (Remeron) 30 mg PO HS [facility] Mupirocin (Bactroban Ointment) 0 gm TOP BID [facility] Last Admin: 10/29/17 10:07 Dose: Not Given Oseltamivir Phosphate (Tamiflu Cap) 75 mg PO DAILY [facility] PRN Reason: Protocol Stop: 11/03/17 11:52 Last Admin: 10/29/17 12:08 Dose: Not Given Oxycodone HCl (Oxycodone Immediate Release Tab) 15 mg PO Q8H PRN PRN Reason: Pain, severe (8-10) Pantoprazole Sodium (Protonix Ec Tab) 40 mg PO DAILY [facility] Last Admin: 10/29/17 10:06 Dose: 40 mg Potassium Phos/Sodium Phos (Neutra-Phos) 1 pkt PO DAILY [facility] Last Admin: 10/29/17 10:07 Dose: 1 pkt Trazodone HCl (Desyrel) 50 mg PO HS [facility] Last Admin: 10/28/17 21:28 Dose: 50 mg Zolpidem Tartrate (Ambien) 5 mg PO HS PRN; Protocol PRN Reason: Insomnia Last Admin: 10/27/17 22:04 Dose: 5 mg - Labs Labs: 10/29/17 06:45 10/29/17 06:45 PT 13.2 SECONDS (9.4-12.5) H 10/22/17 12:20 INR 1.14 (0.93-1.08) H 10/22/17 12:20 APTT 42.2 Seconds (25.1-36.5) H 10/13/17 15:14 - Constitutional Appears: No Acute Distress - Eye Exam Eye Exam: Normal appearance. absent: Scleral icterus - ENT Exam ENT Exam: Mucous Membranes Moist - Neck Exam Neck Exam: Normal Inspection - Respiratory Exam Respiratory Exam: NORMAL BREATHING PATTERN. absent: Respiratory Distress - Cardiovascular Exam Cardiovascular Exam: +S1, +S2 - GI/Abdominal Exam GI & Abdominal Exam: Distended, Firm, Tenderness (mainly left quaderant but has diffuse pain throughout.), Normal Bowel Sounds. absent: Guarding, Rebound - Extremities Exam Extremities Exam: Pedal Edema - Neurological Exam Neurological Exam: Alert, Awake, Oriented x3 - Skin Skin Exam: Dry, Warm Assessment and Plan - Assessment and Plan (Free Text) Assessment: Assessment: Abdominal pain/Distention/Ascites New-onset pancreatitis Abdominal hematoma H/O Atrial fibrillation CVA Thoracic aneurysm status post endovascular repair COPD Anemia Plan: Trend H&H and transfuse as necessary Continue PPI Monitor for overt GI bleed clear liquid for paracentesis today check ammonia level Case discussed with Dr. Clarke covering Dr. Galindo.
[2017-10-29 13:53] LABS: BODY FLUID TYPE PERITONEAL/ASCITES
[2017-10-29 14:36] LABS: BF GROSS APPEARANCE CLEAR (CLEAR); BODY FLUID MONO/MACROPHAGE 0 % (0-0); BODY FLUID TOTAL COUNT 100 (0-0)
--- NOTE | 2017-10-29 14:51 | US ---
PROCEDURE: Ultrasound guided paracentesis. HISTORY: New onset ascites. Abdominal pain and distension. PHYSICIAN(S): Pratik Kendrick MD. TECHNIQUE: The relative risks and indications for the procedure were explained to the patient's family and informed written consent obtained. Sonography of the abdomen was performed in a supine position. This revealed a small to moderate amount of non-loculated ascites, greatest in the right upper abdomen. A puncture site was selected and the area was prepped and draped in the usual sterile fashion. 1% Xylocaine was used to anesthetize the skin and soft tissues. A 7 Urdu paracentesis catheter was trocared into the right upper abdomenand 1600 cc of lowe fluid aspirated. The appropriate labs were sent IMPRESSION: Ultrasound-guided paracentesis in the right upper abdomen. 1600 cc of fluid were aspirated. Labs were sent
--- NOTE | 2017-10-29 15:01 | CP.PCM.PN ---
Subjective - Date & Time of Evaluation Date of Evaluation: 10/29/17 Time of Evaluation: 14:57 - Subjective Subjective: Progress Note for Dr. Sanchez Patient seen and examined at bedside. Patient responding to simple commands, but lethargic. Patient states she does have some pain. No other complains at this time. Denies chest pain, shortness of breath, nausea, vomiting, diarrhea, headache. Objective - Vital Signs/Intake and Output Vital Signs (last 24 hours): Temp Pulse Resp BP Pulse Ox 97.2 F L 83 20 169/76 H 96 10/29/17 07:00 10/29/17 10:07 10/29/17 07:00 10/29/17 10:07 10/29/17 07:00 Intake and Output: 10/29/17 10/29/17 06:59 18:59 Intake Total 30 Output Total 300 Balance -270 - Medications Medications: Current Medications Amlodipine Besylate (Norvasc) 10 mg PO DAILY [facility] Last Admin: 10/29/17 11:11 Dose: Not Given Clonidine HCl (Catapres-Tts3 0.3 Mg/24 Hr) 1 patch TD Q7D@1000 [facility] Last Admin: 10/23/17 09:35 Dose: 1 patch Hydralazine HCl (Apresoline) 10 mg PO QID PRN PRN Reason: for sbp>160 Last Admin: 10/19/17 06:18 Dose: 10 mg Hydralazine HCl (Apresoline) 100 mg PO TID [facility] Last Admin: 10/29/17 13:23 Dose: Not Given Potassium Chloride/Dextrose/Sod Cl (Potassium Chl 20 Meq In D5-1/2ns) 1,000 mls @ 40 mls/hr IV .Q24H [facility] Last Admin: 10/29/17 08:12 Dose: 40 mls/hr Levalbuterol HCl (Xopenex) 0.63 mg IH TIDRESP [facility] Last Admin: 10/29/17 13:55 Dose: 0.63 mg Levetiracetam (Keppra) 500 mg PO BID [facility] Last Admin: 10/29/17 10:06 Dose: 500 mg Losartan Potassium (Cozaar) 100 mg PO DAILY [facility] Last Admin: 10/29/17 10:06 Dose: 100 mg Magnesium Oxide (Mag-Ox) 400 mg PO BID [facility] Last Admin: 10/29/17 10:06 Dose: 400 mg Metoprolol Tartrate (Lopressor) 50 mg PO BRKDIN [facility] Last Admin: 10/29/17 08:28 Dose: 50 mg Mirtazapine (Remeron) 30 mg PO HS [facility] Mupirocin (Bactroban Ointment) 0 gm TOP BID [facility] Last Admin: 10/29/17 10:07 Dose: Not Given Oseltamivir Phosphate (Tamiflu Cap) 75 mg PO DAILY [facility] PRN Reason: Protocol Stop: 11/03/17 11:52 Last Admin: 10/29/17 12:08 Dose: Not Given Oxycodone HCl (Oxycodone Immediate Release Tab) 15 mg PO Q8H PRN PRN Reason: Pain, severe (8-10) Pantoprazole Sodium (Protonix Ec Tab) 40 mg PO DAILY [facility] Last Admin: 10/29/17 10:06 Dose: 40 mg Potassium Phos/Sodium Phos (Neutra-Phos) 1 pkt PO DAILY [facility] Last Admin: 10/29/17 10:07 Dose: 1 pkt Trazodone HCl (Desyrel) 50 mg PO HS [facility] Last Admin: 10/28/17 21:28 Dose: 50 mg Zolpidem Tartrate (Ambien) 5 mg PO HS PRN; Protocol PRN Reason: Insomnia Last Admin: 10/27/17 22:04 Dose: 5 mg - Labs Labs: 10/29/17 06:45 10/29/17 06:45 PT 13.2 SECONDS (9.4-12.5) H 10/22/17 12:20 INR 1.14 (0.93-1.08) H 10/22/17 12:20 APTT 42.2 Seconds (25.1-36.5) H 10/13/17 15:14 - Constitutional Appears: Non-toxic, No Acute Distress - Head Exam Head Exam: ATRAUMATIC, NORMAL INSPECTION, NORMOCEPHALIC - ENT Exam ENT Exam: Mucous Membranes Moist - Respiratory Exam Respiratory Exam: Clear to Ausculation Bilateral, NORMAL BREATHING PATTERN - Cardiovascular Exam Cardiovascular Exam: RRR, +S1, +S2 - GI/Abdominal Exam GI & Abdominal Exam: Distended, Soft, Normal Bowel Sounds. absent: Guarding, Tenderness, Rebound - Extremities Exam Extremities Exam: Pedal Edema (+1 b/l ). absent: Calf Tenderness - Neurological Exam Neurological Exam: Alert, Awake, Oriented x3 - Psychiatric Exam Psychiatric exam: Normal Affect, Normal Mood - Skin Skin Exam: Intact, Normal Color, Warm Assessment and Plan - Assessment and Plan (Free Text) Plan: 77 y/o F with past medical history of abdominal wall and pelvic hematoma, anemia , pleural effusion, atelectasis, COPD, CHF, seizure disorder, paroxysmal afib, cirrhosis, aortic aneurysm, and hypertension presents with anemia secondary to abdominal wall bleeding, resulting in blood transfusion. Patient has stable hemoglobin, but has a poor prognosis due to bleeding and clotting disorders. Patient should have hemoglobin monitored closely. Patient to continue on current medical regimen with no further recommendations. Plan discussed with Dr. Sanchez. Russ, PGY-2
--- NOTE | 2017-10-29 16:14 | PN ---
DATE: 10/29/2017 The patient is in room 571, bed 1. REASON FOR CONSULTATION AND FOLLOWUP: Paroxysmal atrial fibrillation, rectus sheath hematoma, severe anemia, altered mental status, status post multiple blood transfusions, old CVA. SUBJECTIVE: The patient is lying in bed without any respiratory distress. PHYSICAL EXAMINATION: VITAL SIGNS: Blood pressure 156/80, respirations 20, pulse 87, temperature 97.2. HEENT: Head is normocephalic. Eyes, pupils normal. Conjunctivae slightly pale. NECK: JVP is low. Carotids are equal. THORAX: AP diameter is normal. LUNGS: Clear. CARDIOVASCULAR: S1 and S2. ABDOMEN: Soft. No tenderness, no organomegaly. Bowel sounds are normal. EXTREMITIES: No clubbing, no cyanosis. LABORATORY DATA: WBC 12.3, hemoglobin 11.5, hematocrit 35.0, platelets 138. Sodium 138, potassium 4.0, BUN 8, creatinine 0.5, magnesium is 1.5, phosphorus 3.3, calcium 8.3, protein 5.7, albumin 2.7. DIAGNOSES: Anemia, rectus sheath hematoma, blood transfusions, paroxysmal atrial fibrillation, severe protein-calorie malnutrition, old cerebrovascular accident. On admission, the patient had supratherapeutic INR. The patient was on Coumadin at home. History of cardiac cath in the past and had nonobstructive coronary artery disease, history of endovascular stent, old cerebrovascular accident with contracture on the left side, hypomagnesemia. PLAN: Give IV magnesium sulfate. The patient on hydralazine 100 mg p.o. t.i.d., Cozaar 100 mg daily, clonidine 0.3 mg x 24 hours 1 packet weekly, Keppra 500 mg b.i.d., metoprolol tartrate 60 mg b.i.d., magnesium oxide 400 mg b.i.d. The patient already has been ordered magnesium sulfate 1 gm IV today, phosphorus, potassium, sodium 1 packet p.o. daily. amlodipine 5 mg daily. The patient's blood pressures are elevated, so we will change amlodipine to 10 mg daily, Xopenex hand nebulizer therapy. We will follow with you. Anushka Monroy MD
--- NOTE | 2017-10-29 17:01 | PN ---
DATE: 10/28/2017 SUBJECTIVE: The patient is in the bed. She is more awake. She is responding verbally to me. Her appetite seems poor. She seems to have leg pain. She responded that she has more leg pain in foot area. The patient is seen by professional application designer, otherwise no new complaints. She is suppose to go for tapping of her ascites. PHYSICAL EXAMINATION: VITAL SIGNS: As follows: On the 10/28/2017, her temperature 98, heart rate 103, and blood pressure 158/89. HEAD AND NECK: Normal. No JVD. No thyromegaly. CHEST: Clear. Diminished breath sounds. CARDIAC: First sound and second sound normal and regular. ABDOMEN: Soft. There is tenderness and firmness on the left abdomen and lower abdomen. EXTREMITIES: Mild edema. Both legs are not moving and heel cushions on both of them and pillow in between. NEUROLOGIC: The patient has left hemiplegia and also her both legs do not move from being bedridden. LABORATORY STUDY: White count 7.5, hemoglobin 11.3, hematocrit 33.9, and platelets 111. Chemistry; sodium 137, potassium 3.9, chloride 109, bicarbonate 21, BUN 4 and creatinine 0.4 and clearance more than 60. Her blood sugar is normal 104, calcium 8.3, magnesium was low. Total bilirubin 1.8. Her rest of liver enzyme is normal. Her total protein is 5.9, albumin 2.7, and low globulin 3.2. IMPRESSION AND PLAN: 1. Acute blood loss secondary to abdominal wall hematoma. Repeat CT, no change, stable H and H. We will continue monitor. 2. Liver disease, chronic hepatitis C with liver cirrhosis, portal hypertension, ascites. Planned tapping today and for comfort care keep her belly down and we will send the fluid for analysis. 3. The patient had hypertension monitored by Nephrology. Continue current treatment. She is on metoprolol. She is on losartan 100 mg. She is on hydralazine and she is on clonidine patch. Continue current treatment. She also has been put on Norvasc 10 mg daily. 3. Chronic back pain, leg pain, chronic arthritis. The patient also complained of leg pain. We will continue her oxycodone, we will increase it to 50 mg every 8 hours. 4. Anxiety and insomnia: We will continue at this time Austen, assurance she seems to be doing okay with her current medications. 5. Less appetite. She is on Remeron. We will consider increasing the Remeron to 20 mg daily. At this moment, we will continue IV fluid for the patient 40 mL because she is not eating and D5 half normal. We will continue that for now. We will see how the patient do after tapping, if she starts eating. Feeding tube is difficult to somebody with ascites. The patient's daughter Nicol, she does not want it and also the patient's condition seems end-stage liver disease and her general condition. I will discuss the comfort care with the family and may be hospice care. We will talk with other consultants first and we will go from there. Continue current therapy. The patient may get her tapping today and we will follow up clinically. We will consider restarting aspirin after the procedure 12 hours later and also may be low dose clonidine. Continue current therapy. Followup clinically. Albin Forte MD
--- NOTE | 2017-10-29 19:05 | PN ---
DATE: 10/29/2017 SUBJECTIVE: The patient is seen lying in bed. She is lethargic. She is not really communicative at this time. She underwent ultrasound-guided paracentesis earlier today. PHYSICAL EXAMINATION: GENERAL: Elderly lady lying in bed. VITAL SIGNS: Blood pressure 169/76, heart rate 83, respiratory rate 20, and temperature 97.2. HEENT: Normocephalic and atraumatic. Positive pallor. NECK: Supple. No JVD. LUNGS: Bilateral equal air entry, bilateral equal expansion. No rales. CARDIAC: S1 and S2. Regular rate and rhythm. No murmur. No rub. ABDOMEN: Obese, distended, and tenderness in the lower abdomen. EXTREMITIES: 2+ pitting edema. INTAKE AND OUTPUT: . LABORATORY DATA: WBC 12, hemoglobin 11.5, hematocrit 35, and platelets 138. Sodium 138, potassium 4.0, chloride 110, CO2 of 21, BUN 8, creatinine 0.5, glucose of 115, calcium 8.3, phosphorus 3.3, magnesium 1.5, total bili 1.9, AST 38, ALT 25, and albumin 2.7. Ammonia less than 9. Peritoneal fluid clear. WBC 312, RBC 177, neutrophils 43%, and lymphs 56%. CURRENT MEDICATIONS: Ambien, Apresoline, Catapres patch #3, Cozaar 100, trazodone, Keppra, Lopressor 50 b.i.d., magnesium oxide, Neutra-Phos 1 packet daily, amlodipine 10 not given this morning, D5 half normal saline with 20 mEq of KCl at 40, Protonix, Remeron, Tamiflu, Xopenex, and magnesium sulfate 1 g given this morning. ASSESSMENT: 1. Resolved acute kidney injury, largely prerenal azotemia. 2. Severe intra-abdominal bleed secondary to rectus sheath bleeding. 3. History of seizure disorder. 4. Acute pancreatitis? 5. Ascites, status post paracentesis. 6. Atrial fibrillation. 7. Hypomagnesemia, status post replacement this morning. 8. Hepatitis C. 9. Chronic stable thrombocytopenia. PLAN: 1. Follow up H and H closely. 2. Continue current antihypertensives. 3. Continue low dose IV fluids since p.o. intake is nil. 4. Discharge planning? Jennifer Berg MD [facility] # [id number]
--- NOTE | 2017-10-29 19:35 | PN ---
PULMONARY PROGRESS NOTE DATE: 10/29/2017 REFERRING PHYSICIAN: Albin Forte MD SUBJECTIVE: She is lying in the stretcher in no acute distress. No headache. No rhinitis. No cough. No nausea. Mild abdominal discomfort. No leg pain or leg swelling. OBJECTIVE: GENERAL: In no acute distress. VITAL SIGNS: Temperature is 98, heart rate is 83, respiratory rate is 20, blood pressure is 169/76, and pulse oximetry is 96% on 2 L nasal cannula. HEENT: Moist mucous membrane. No ulcer or thrush noted. NECK: Supple. No JVD. LUNGS: Has a fair airflow with few rhonchi. HEART: S1 and S2. ABDOMEN: Soft and mild tenderness on the ecchymotic area on the right side of the abdomen. EXTREMITIES: There is no edema. NEUROLOGIC: Awake and alert, follows simple commands. MEDICATIONS: She is on Ambien 5 mg at bedtime p.r.n., hydralazine 10 mg four times daily p.r.n., also on clonidine patch 0.3 weekly, Cozaar 100 mg daily, trazodone 50 mg at bedtime, Keppra 500 mg twice a day, metoprolol tartrate 50 mg twice a day, magnesium oxide 400 mg twice a day, Neutra-Phos one pack daily, Norvasc 10 mg daily, oxycodone immediate release 50 mg q.8 hours p.r.n., potassium 20 mEq 40 mL per hour, IV fluid, Remeron 30 mg at bedtime, 75 mg was started today, but not given and Xopenex 0.63 three times a day. LABORATORY DATA: Has a ultrasound-guided paracentesis done with 1.6 L of fluid removed. IMPRESSION AND PLAN: Abdominal wall and pelvic hematoma with anemia, requiring transfusion; pleural effusion, status post thoracentesis; atelectasis; chronic obstructive lung disease; seizure disorder, paroxysmal atrial fibrillation; history of hepatitis C; aortic aneurysm; cirrhotic liver; and hypertension. Pulmonary point of view doing okay. Keep head elevated at 45 degrees. Feels better after thoracentesis. No nausea. No vomiting. No diarrhea reported. Aspiration precaution. Continue pain management, bronchodilator probably effusion is secondary to abdominal process, which is cirrhotic liver. Thank you and we will follow with you. Anushka Barreto MD [facility] # [id number]
--- NOTE | 2017-10-29 21:10 | PN ---
DATE: 10/29/2017 SUBJECTIVE: The patient is in bed, in no acute distress, and poorly responsive. PHYSICAL EXAMINATION: VITAL SIGNS: Temperature of 97, blood pressure is 150/80, and respiratory rate 20. HEENT: Unremarkable. NECK: Supple. LUNGS: Decreased breath sounds. HEART: Normal S1 and S2. ABDOMEN: Soft. LABORATORY DATA: Reveals a white count of 12,300, hemoglobin of 10, and platelets of 138. BUN of 8 and creatinine of 0.5. Procalcitonin 0.3. Review of orders reveals the patient to be on omeprazole. ASSESSMENT AND PLAN: This is a -[id number] female with systemic inflammatory response syndrome with acute drop in her hemoglobin with a rectus sheath hematoma, no evidence of sepsis, right lower lobe healthcare-associated pneumonia, history of extended-spectrum beta-lactamases Escherichia coli and Enterococcus urinary tract infection, history of atrial fibrillation, cerebrovascular accident, bedridden, aortic dissection, and history of seizures. Currently off of antibiotics. We will follow with you. Ricardo Burgos MD
[2017-10-29 21:22] VITALS: O2SAT 97
[2017-10-30] MEDS: Potassium Ch 20mEq in D5-1/2NS 1,000 ML IV SCH (05:42)
[2017-10-30 06:19] LABS: HEMOGLOBIN 11.7 g/dL (12.0-16.0); MEAN CELL VOLUME 93.3 fl (80.0-105.0); MEAN CORPUSCULAR HEMOGLOBIN 30.2 pg (25.0-35.0); MEAN CORPUSCULAR HGB CONC 32.4 g/dl (31.0-37.0); MEAN PLATELET VOLUME 9.2 fl (7.0-11.0); RBC 3.87 10^6/uL (3.5-6.1)
--- NOTE | 2017-10-30 06:51 | CP.PCM.PN ---
Subjective - Date & Time of Evaluation Date of Evaluation: 10/30/17 Time of Evaluation: 06:49 - Subjective Subjective: Nurse calls and tells that BP is 184/93. She is asymptomatic. 77 year old woman was admitted with lethargy and palor. Has PMH of HTN,chronic atrial fibrillation, CVA , thrombocytopenia,anemia, UTI. Objective - Vital Signs/Intake and Output Vital Signs (last 24 hours): Temp Pulse Resp BP Pulse Ox 99.1 F 108 H 18 207/98 H 97 10/30/17 00:00 10/30/17 04:57 10/30/17 00:00 10/30/17 04:57 10/30/17 00:00 Intake and Output: 10/29/17 10/30/17 18:59 06:59 Intake Total 120 180 Output Total 300 Balance 120 -120 - Medications Medications: Current Medications Amlodipine Besylate (Norvasc) 10 mg PO DAILY [facility] Last Admin: 10/29/17 11:11 Dose: Not Given Clonidine HCl (Catapres-Tts3 0.3 Mg/24 Hr) 1 patch TD Q7D@1000 [facility] Last Admin: 10/23/17 09:35 Dose: 1 patch Hydralazine HCl (Apresoline) 10 mg PO QID PRN PRN Reason: for sbp>160 Last Admin: 10/30/17 04:57 Dose: 10 mg Hydralazine HCl (Apresoline) 100 mg PO TID [facility] Last Admin: 10/29/17 17:27 Dose: 100 mg Potassium Chloride/Dextrose/Sod Cl (Potassium Chl 20 Meq In D5-1/2ns) 1,000 mls @ 40 mls/hr IV .Q24H [facility] Last Admin: 10/30/17 05:42 Dose: 40 mls/hr Levalbuterol HCl (Xopenex) 0.63 mg IH TIDRESP [facility] Last Admin: 10/29/17 13:55 Dose: 0.63 mg Levetiracetam (Keppra) 500 mg PO BID [facility] Last Admin: 10/29/17 17:26 Dose: 500 mg Losartan Potassium (Cozaar) 100 mg PO DAILY [facility] Last Admin: 10/29/17 10:06 Dose: 100 mg Magnesium Oxide (Mag-Ox) 400 mg PO BID [facility] Last Admin: 10/29/17 17:27 Dose: 400 mg Metoprolol Tartrate (Lopressor) 50 mg PO BRKDIN [facility] Last Admin: 10/29/17 17:26 Dose: 50 mg Mirtazapine (Remeron) 30 mg PO HS [facility] Last Admin: 10/29/17 22:52 Dose: 30 mg Mupirocin (Bactroban Ointment) 0 gm TOP BID [facility] Last Admin: 10/29/17 17:27 Dose: Not Given Oseltamivir Phosphate (Tamiflu Cap) 75 mg PO DAILY [facility] PRN Reason: Protocol Stop: 11/03/17 11:52 Last Admin: 10/29/17 12:08 Dose: Not Given Oxycodone HCl (Oxycodone Immediate Release Tab) 15 mg PO Q8H PRN PRN Reason: Pain, severe (8-10) Last Admin: 10/30/17 05:01 Dose: 15 mg Pantoprazole Sodium (Protonix Ec Tab) 40 mg PO DAILY [facility] Last Admin: 10/29/17 10:06 Dose: 40 mg Potassium Phos/Sodium Phos (Neutra-Phos) 1 pkt PO DAILY [facility] Last Admin: 10/29/17 10:07 Dose: 1 pkt Trazodone HCl (Desyrel) 50 mg PO HS [facility] Last Admin: 10/29/17 22:51 Dose: 50 mg Zolpidem Tartrate (Ambien) 5 mg PO HS PRN; Protocol PRN Reason: Insomnia Last Admin: 10/27/17 22:04 Dose: 5 mg - Labs Labs: 10/30/17 05:30 10/29/17 06:45 PT 13.2 SECONDS (9.4-12.5) H 10/22/17 12:20 INR 1.14 (0.93-1.08) H 10/22/17 12:20 APTT 42.2 Seconds (25.1-36.5) H 10/13/17 15:14 - Constitutional Appears: Well, No Acute Distress - Head Exam Head Exam: ATRAUMATIC, NORMAL INSPECTION, NORMOCEPHALIC - Eye Exam Eye Exam: Normal appearance - ENT Exam ENT Exam: Normal External Ear Exam - Neck Exam Neck Exam: Normal Inspection - Respiratory Exam Respiratory Exam: absent: NORMAL BREATHING PATTERN - Cardiovascular Exam Cardiovascular Exam: absent: JVD - GI/Abdominal Exam GI & Abdominal Exam: absent: Distended - Rectal Exam Rectal Exam: Deferred - Exam Additional comments: Deferred. - Extremities Exam Extremities Exam: Normal Inspection - Back Exam Back Exam: NORMAL INSPECTION - Neurological Exam Neurological Exam: Alert, Awake - Psychiatric Exam Psychiatric exam: Normal Affect, Normal Mood - Skin Skin Exam: Normal Color Assessment and Plan - Assessment and Plan (Free Text) Assessment: Elevated blood pressure reading. Hx CVA. HTN. Chronic atrial fibrillation. Thrombocytopenia. Anemia. Plan: Hydralazien 100 mg po now instead of at 10 am. Continue present management as per PMD.
[2017-10-30 07:27] LABS: ALBUMIN 2.7 g/dL (3.0-4.8); ALT/SGPT 24 U/L (7-56); AST/SGOT 40 U/L (14-36); BLOOD UREA NITROGEN 9 mg/dL (7-21); CALCIUM 8.4 mg/dL (8.4-10.5); GFR AFRICAN-AMERICAN > 60; GFR NON-AFRICAN AMERICAN > 60; MAGNESIUM 1.8 mg/dL (1.7-2.2)
[2017-10-30 07:45] LABS: ALB/GLOB RATIO 0.9 (1.1-1.8)
[2017-10-30] MEDS: Levalbuterol 0.63 MG/3 ML Inhal Soln UD IH SCH ×2 (07:52→14:30)
--- NOTE | 2017-10-30 08:05 | PN ---
DATE: 10/29/[address] Sanchez. ADDENDUM: The patient is a 77-year-old female with Dr. . Evaluation today reviewed with the patient known to suffer from paroxysmal atrial fibrillation, history of abdominal wall pelvic hematoma with hypertension, abdominal wall bleeding. Dr. Sanchez recommends that the patient continue on her present medical regimen as her bleeding is now stabilized. However, due to her frail condition and her fragile state of health the patient may rebleed if aspirin or another anticoagulant is re-instituted. Also that her life expectancy is probably less than six months time with hospice to be considered for this complex patient with history as previously describes with her prognosis guarded. We will monitor her clinically with DNR/DNI to continue. Rudy Cervantes MD
[2017-10-30 08:16] VITALS: TEMP 98.2
[2017-10-30 08:39] VITALS: RESP 18
--- NOTE | 2017-10-30 08:40 | PN ---
ADDENDUM DATE: 10/29/2017 This is an addendum to progress note performed by SABINA Delacruz. The patient is personally examined by me and I have reviewed her laboratory data. The patient is lying in bed. She remains weak. She is comfortable. She had a paracentesis with removal of approximately 1600 mL of straw-colored fluid. The cell count does not appear to be suggestive of spontaneous bacterial peritonitis. The patient has advanced cirrhosis of the liver. She is comfortable. Her blood count is stable. Her long-term prognosis is poor. A decision regarding hospice is being made by the patient's daughter and the remainder of family. Klever Clarke MD
[2017-10-30] MEDS: Potassium & Sodium Phosphate PO SCH (10:29)
[2017-10-30] MEDS: levETIRAcetam 500 mg/5ml UD cups PO SCH (10:29)
[2017-10-30] MEDS: Magnesium Oxide 400 mg Tab UD PO SCH (10:31)
[2017-10-30] MEDS: Pantoprazole 40 mg EC Tab PO SCH (10:31)
[2017-10-30 10:33] VITALS: PULSE 98
--- NOTE | 2017-10-30 10:54 | CP.PCM.PN ---
Subjective - Date & Time of Evaluation Date of Evaluation: 10/30/17 Time of Evaluation: 10:47 - Subjective Subjective: Seen and examined at the bedside earlier today, chart reviewed. Patient status post paracentesis yesterday was 1300 removed, ascitic fluid was sent for labs. Patient has less abdominal pain, no reports of nausea, vomiting, fever or chills. Patient had elevated BP last night and Apresoline given as per nursing. No reports of overt GI bleed. Objective - Vital Signs/Intake and Output Vital Signs (last 24 hours): Temp Pulse Resp BP Pulse Ox 98.2 F 98 H 18 168/87 H 97 10/30/17 08:16 10/30/17 10:30 10/30/17 08:39 10/30/17 10:30 10/30/17 08:16 Intake and Output: 10/30/17 10/30/17 06:59 18:59 Intake Total 180 Output Total 300 Balance -120 - Medications Medications: Current Medications Amlodipine Besylate (Norvasc) 10 mg PO DAILY [facility] Last Admin: 10/30/17 10:30 Dose: 10 mg Clonidine HCl (Catapres-Tts3 0.3 Mg/24 Hr) 1 patch TD Q7D@1000 [facility] Last Admin: 10/30/17 10:29 Dose: 1 patch Hydralazine HCl (Apresoline) 10 mg PO QID PRN PRN Reason: for sbp>160 Last Admin: 10/30/17 04:57 Dose: 10 mg Hydralazine HCl (Apresoline) 100 mg PO TID [facility] Last Admin: 10/30/17 10:30 Dose: 100 mg Potassium Chloride/Dextrose/Sod Cl (Potassium Chl 20 Meq In D5-1/2ns) 1,000 mls @ 40 mls/hr IV .Q24H [facility] Last Admin: 10/30/17 05:42 Dose: 40 mls/hr Levalbuterol HCl (Xopenex) 0.63 mg IH TIDRESP [facility] Last Admin: 10/30/17 07:52 Dose: 0.63 mg Levetiracetam (Keppra) 500 mg PO BID [facility] Last Admin: 10/30/17 10:29 Dose: 500 mg Losartan Potassium (Cozaar) 100 mg PO DAILY [facility] Last Admin: 10/30/17 10:31 Dose: 100 mg Magnesium Oxide (Mag-Ox) 400 mg PO BID [facility] Last Admin: 10/30/17 10:31 Dose: 400 mg Metoprolol Tartrate (Lopressor) 50 mg PO BRKDIN [facility] Last Admin: 10/30/17 08:30 Dose: 50 mg Mirtazapine (Remeron) 30 mg PO HS [facility] Last Admin: 10/29/17 22:52 Dose: 30 mg Mupirocin (Bactroban Ointment) 0 gm TOP BID [facility] Last Admin: 10/30/17 10:32 Dose: 1 applic Oseltamivir Phosphate (Tamiflu Cap) 75 mg PO DAILY [facility] PRN Reason: Protocol Stop: 11/03/17 11:52 Last Admin: 10/30/17 10:31 Dose: 75 mg Oxycodone HCl (Oxycodone Immediate Release Tab) 15 mg PO Q8H PRN PRN Reason: Pain, severe (8-10) Last Admin: 10/30/17 05:01 Dose: 15 mg Pantoprazole Sodium (Protonix Ec Tab) 40 mg PO DAILY [facility] Last Admin: 10/30/17 10:31 Dose: 40 mg Potassium Phos/Sodium Phos (Neutra-Phos) 1 pkt PO DAILY [facility] Last Admin: 10/30/17 10:29 Dose: 1 pkt Trazodone HCl (Desyrel) 50 mg PO HS [facility] Last Admin: 10/29/17 22:51 Dose: 50 mg Zolpidem Tartrate (Ambien) 5 mg PO HS PRN; Protocol PRN Reason: Insomnia Last Admin: 10/27/17 22:04 Dose: 5 mg - Labs Labs: 10/30/17 05:30 10/30/17 05:30 PT 13.2 SECONDS (9.4-12.5) H 10/22/17 12:20 INR 1.14 (0.93-1.08) H 10/22/17 12:20 APTT 42.2 Seconds (25.1-36.5) H 10/13/17 15:14 - Constitutional Appears: No Acute Distress - Head Exam Head Exam: NORMOCEPHALIC - Eye Exam Eye Exam: Normal appearance. absent: Scleral icterus - ENT Exam ENT Exam: Mucous Membranes Moist - Neck Exam Neck Exam: Normal Inspection - Respiratory Exam Respiratory Exam: NORMAL BREATHING PATTERN. absent: Respiratory Distress - Cardiovascular Exam Cardiovascular Exam: +S1, +S2 - GI/Abdominal Exam GI & Abdominal Exam: Distended (abdomen less distended and soft), Soft, Normal Bowel Sounds. absent: Guarding, Tenderness, Rebound - Extremities Exam Extremities Exam: Pedal Edema - Neurological Exam Neurological Exam: Awake, Oriented x3 - Skin Skin Exam: Dry, Warm Assessment and Plan - Assessment and Plan (Free Text) Assessment: Assessment: Abdominal pain/Distention/Ascites New-onset pancreatitis Abdominal hematoma H/O Atrial fibrillation CVA Thoracic aneurysm status post endovascular repair COPD Anemia Plan: Trend H&H and transfuse as necessary Continue PPI Monitor for overt GI bleed off aspirin for hematoma On pured diet follow-up ascitic fluid lab Tamiflu Case discussed with Dr. Clarke covering Dr. Galindo.
--- NOTE | 2017-10-30 12:20 | CP.PCM.PN ---
<Isa Larson - Last Filed: 10/30/17 12:21> Subjective - Date & Time of Evaluation Date of Evaluation: 10/30/17 Time of Evaluation: 12:21 - Subjective Subjective: Podiatry Progress Note - Dr. Arteaga/Denita 77 year old female patient seen and evaluated at bedside for left heel wound and right heel DTI. Patient is AAO x 3 and NAD resting comfortably in bed. Denies any new onset pain or acute overnight events to lower extremity. Pt does not say much today as she is resting, but expresses no pedal complaints. Multipodus boots present to lower extremities bilaterally. Denies N/V/F/D/C/SOB/ posterior calf pain Objective - Vital Signs/Intake and Output Vital Signs (last 24 hours): Temp Pulse Resp BP Pulse Ox 98.2 F 98 H 18 168/87 H 97 10/30/17 08:16 10/30/17 10:30 10/30/17 08:39 10/30/17 10:30 10/30/17 08:16 Intake and Output: 10/30/17 10/30/17 06:59 18:59 Intake Total 180 20 Output Total 300 Balance -120 20 - Medications Medications: Current Medications Amlodipine Besylate (Norvasc) 10 mg PO DAILY [facility] Last Admin: 10/30/17 10:30 Dose: 10 mg Clonidine HCl (Catapres-Tts3 0.3 Mg/24 Hr) 1 patch TD Q7D@1000 [facility] Last Admin: 10/30/17 10:29 Dose: 1 patch Hydralazine HCl (Apresoline) 10 mg PO QID PRN PRN Reason: for sbp>160 Last Admin: 10/30/17 04:57 Dose: 10 mg Hydralazine HCl (Apresoline) 100 mg PO TID [facility] Last Admin: 10/30/17 10:30 Dose: 100 mg Potassium Chloride/Dextrose/Sod Cl (Potassium Chl 20 Meq In D5-1/2ns) 1,000 mls @ 40 mls/hr IV .Q24H [facility] Last Admin: 10/30/17 05:42 Dose: 40 mls/hr Levalbuterol HCl (Xopenex) 0.63 mg IH TIDRESP [facility] Last Admin: 10/30/17 07:52 Dose: 0.63 mg Levetiracetam (Keppra) 500 mg PO BID [facility] Last Admin: 10/30/17 10:29 Dose: 500 mg Losartan Potassium (Cozaar) 100 mg PO DAILY [facility] Last Admin: 10/30/17 10:31 Dose: 100 mg Magnesium Oxide (Mag-Ox) 400 mg PO BID [facility] Last Admin: 10/30/17 10:31 Dose: 400 mg Metoprolol Tartrate (Lopressor) 50 mg PO BRKDIN [facility] Last Admin: 10/30/17 08:30 Dose: 50 mg Mirtazapine (Remeron) 30 mg PO HS [facility] Last Admin: 10/29/17 22:52 Dose: 30 mg Mupirocin (Bactroban Ointment) 0 gm TOP BID [facility] Last Admin: 10/30/17 10:32 Dose: 1 applic Oseltamivir Phosphate (Tamiflu Cap) 75 mg PO DAILY [facility] PRN Reason: Protocol Stop: 11/03/17 11:52 Last Admin: 10/30/17 10:31 Dose: 75 mg Oxycodone HCl (Oxycodone Immediate Release Tab) 15 mg PO Q8H PRN PRN Reason: Pain, severe (8-10) Last Admin: 10/30/17 05:01 Dose: 15 mg Pantoprazole Sodium (Protonix Ec Tab) 40 mg PO DAILY [facility] Last Admin: 10/30/17 10:31 Dose: 40 mg Potassium Phos/Sodium Phos (Neutra-Phos) 1 pkt PO DAILY [facility] Last Admin: 10/30/17 10:29 Dose: 1 pkt Trazodone HCl (Desyrel) 50 mg PO HS [facility] Last Admin: 10/29/17 22:51 Dose: 50 mg Zolpidem Tartrate (Ambien) 5 mg PO HS PRN; Protocol PRN Reason: Insomnia Last Admin: 10/27/17 22:04 Dose: 5 mg - Labs Labs: 10/30/17 05:30 10/30/17 05:30 PT 13.2 SECONDS (9.4-12.5) H 10/22/17 12:20 INR 1.14 (0.93-1.08) H 10/22/17 12:20 APTT 42.2 Seconds (25.1-36.5) H 10/13/17 15:14 - Constitutional Appears: Well, Non-toxic, No Acute Distress - Extremities Exam Additional comments: Vasc: DP pulses weakly palpable 1/4 B/L. PT pulses nonpalpable B/L. CFT is delayed x10 digits. Temperature gradient cool to cool B/L. Neuro: protective sensation grossly diminished Derm: Superficial ulceration noted to plantar aspect of left heel secondary to deep tissue injury with surrounding erythema; no sanguinous drainage present and minimal serous drainage noted; no purulence, no malodor, no fluctuance - no clinical signs of infection noted. Ecchymosis noted to dorsolateral right foot- improving Ortho: No tenderness noted to palpation of left plantar heel wound - Neurological Exam Neurological Exam: Alert, Awake - Psychiatric Exam Psychiatric exam: Normal Affect, Normal Mood Assessment and Plan - Assessment and Plan (Free Text) Assessment: 76 year old female with 1) left heel plantar ulceration, 2) left heel posterior DTI, 3) right heel posterior DTI Plan: Patient seen and evaluated at bedside Plan discussed with attending Dr. Arteaga Afebrile, WBC 11.0 LE US: Chronic left popliteal and tibial DVT Wound to left heel dressed with bactroban and optifoam Multipodus boots reapplied to B/L lower extremities Podiatry will continue to follow while patient in house <Bettie Arteaga - Last Filed: 10/31/17 18:06> Objective - Vital Signs/Intake and Output Vital Signs (last 24 hours): Temp Pulse Resp BP Pulse Ox 98.2 F 98 H 18 130/64 97 10/30/17 08:16 10/30/17 10:30 10/30/17 08:39 10/30/17 16:17 10/30/17 08:16 - Labs Labs: 10/30/17 05:30 10/30/17 05:30 PT 13.2 SECONDS (9.4-12.5) H 10/22/17 12:20 INR 1.14 (0.93-1.08) H 10/22/17 12:20 APTT 42.2 Seconds (25.1-36.5) H 10/13/17 15:14 Attending/Attestation - Attestation I have personally seen and examined this patient.: Yes I have fully participated in the care of the patient.: Yes I have reviewed all pertinent clinical information, including history, physical exam and plan: Yes
[2017-10-30 16:23] VITALS: BP 130/64
--- NOTE | 2017-10-30 18:49 | PN ---
DATE: 10/30/2017 SUBJECTIVE: The patient is seen lying in bed. She is currently not really responsive. Daughter is at bedside. Daughter reports that she opened her eyes earlier. PHYSICAL EXAMINATION: GENERAL: Elderly lady lying in bed. VITAL SIGNS: Blood pressure 168/87, heart rate 98, respiratory rate 18, temperature 98.2. HEENT: Normocephalic, atraumatic. NECK: Supple, no JVD. LUNGS: Bilateral equal air entry, no rales. CARDIAC: S1, S2. Regular rate and rhythm, no murmur, no rub. ABDOMEN: Obese, distended, soft, positive tenderness in the lower abdomen. Bowel sounds present. EXTREMITIES: 1+ pitting edema of the lower extremities. INTAKE AND OUTPUT: 300/300, she also had 2.5 liters of fluid removed via paracentesis. LABORATORY DATA: WBC 11, hemoglobin 11.7, hematocrit 36, platelets 129. Sodium 135, potassium 4.0, chloride 109, CO2 of 21, BUN 9, creatinine 0.4, glucose 104, calcium 8.4, phosphorus 3.3 yesterday, magnesium 1.8, total bili 1.9, AST 40, ALT 24, albumin 2.7. MEDICATIONS: List reviewed. ASSESSMENT: 1. Acute kidney injury, resolved. 2. Severe intra-abdominal bleed secondary to rectus sheath bleed. 3. Hypertension, suboptimally controlled. 4. History of seizures. PLAN: 1. Increase Lopressor to 100 b.i.d. 2. Continue hydralazine, amlodipine, Catapres patch. 3. Monitor H&H. 4. Stable from the renal standpoint. 5. Discuss with daughter at bedside. Jennifer Berg MD
--- NOTE | 2017-10-30 20:06 | PN ---
DATE: 10/30/2017 REASON FOR CONSULTATION AND FOLLOWUP: Paroxysmal atrial fibrillation, rectal sheath hematoma, severe anemia, altered mental status, status post multiple blood transfusion, and CVA. SUBJECTIVE: The patient is a 76-year-old female. The patient denies any chest pain or shortness of breath, lying flat in the bed. PHYSICAL EXAMINATION GENERAL: Not in apparent distress. VITAL SIGNS: Temperature afebrile, heart rate 98, blood pressure 168/87. HEENT: PERRLA intact. NECK: Supple. No carotid bruits or thyromegaly. CHEST: Clear to auscultation. HEART: S1 and S2 regular. ABDOMEN: Soft. EXTREMITIES: Clubbing and cyanosis negative. LABORATORY DATA: Blood workup as follows; WBC 11, hemoglobin 11.9, hematocrit 36.1, and platelet count 129. Chemistry shows sodium 135, potassium 4, chloride 109, carbon dioxide 21, anion gap of 9, BUN 9, and creatinine 0.4. Total protein 5.7, albumin 2.7. IMPRESSION: Moderate protein-calorie malnutrition which is present on admission, severe, now it is improved; rectal sheath hematoma; paroxysmal atrial fibrillation; nonobstructive coronary artery disease; abdominal aortic aneurysm, status post endovascular stent; cerebrovascular accident; contracture of upper extremity, supratherapeutic on admission, old cerebrovascular accident with contracture of the left side. RECOMMENDATION: Continue aggressive control of blood pressure. Supplement electrolytes as needed p.r.n. Overall the patient's condition is critical. 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 Continue supportive care. Now, the patient is in code status DNR/DNI. We will follow with you. We will repeat electrolytes in the morning. Pressure is still elevated, morning pressure was 208/97, now it is 170. The patient is currently on hydralazine p.o. t.i.d., clonidine patch, metoprolol 100, amlodipine 10. If the pressure is still up, we will increase the amlodipine to 10 mg p.o. b.i.d. one dose now and then . Anushka Wilkerson MD [facility] # [id number]
--- NOTE | 2017-10-30 23:16 | PN ---
DATE: 10/30/2017 SUBJECTIVE: The patient is in bed. No acute distress. Nontoxic. PHYSICAL EXAMINATION: VITAL SIGNS: Temperature is 98, blood pressure is 160/80, respiratory rate of 18. HEENT: Unremarkable. NECK: Supple. LUNGS: Have decreased breath sounds. HEART: Normal S1 and S2. ABDOMEN: Soft. LABORATORY DATA: Reveals a white count of 11,000. Microbiology is noted. ASSESSMENT AND PLAN: This is 77-year-old female with systemic inflammatory response syndrome with acute drop in hemoglobin with rectus sheath hematoma. No evidence of sepsis. The patient did have a right lower lobe healthcare-associated pneumonia, history of extended spectrum beta-lactamases Escherichia coli and Enterococcus urinary tract infection, atrial fibrillation, cerebral vascular accident, bedridden, aortic dissection, history of seizures, currently off of antibiotics, and the patient is at risk for developing nosocomial infection. The patient had a paracentesis by Dr. Pratik Kendrick. The patient was seen earlier this morning in room 571, bed 1. We will follow. Overall prognosis is quite poor. Ricardo Burgos MD
--- NOTE | 2017-10-31 08:44 | PN ---
DATE: 10/30/[address] Clarke dictating an addendum to a progress note performed by Devika Ayoub APN SUBJECTIVE: The patient is lying in bed. She is more comfortable status post paracentesis yesterday. She currently denies any abdominal pain. I have personally examined this patient and reviewed her laboratory data. Her paracentesis is not suggestive of SBP as her white blood cell count was not elevated in the ascitic fluid. Her long-term prognosis is guarded. The patient is possibly going to be discharged home. Klever Clarke MD
== END 2017-10-30 17:17 | disposition home or self-care (01) | DRG 811 ==
LOC: ED 15:36 → ERH 17:12 → ICU 21:15 → 5RSO 10-18 04:58
PROVIDERS: ADMIT Internal Medicine; ATTEND Internal Medicine
PROC: 30233K1 Transfusion of Nonautologous Frozen Plasma into Peripheral Vein, Percutaneous Approach (ICD-10-PCS; principal; 2017-10-13)
PROC: 30233N1 Transfusion of Nonautologous Red Blood Cells into Peripheral Vein, Percutaneous Approach (ICD-10-PCS; 2017-10-13)
PROC: 02HV33Z Insertion of Infusion Device into Superior Vena Cava, Percutaneous Approach (ICD-10-PCS; 2017-10-14)
PROC: B548ZZA Ultrasonography of Superior Vena Cava, Guidance (ICD-10-PCS; 2017-10-14)
PROC: 3E0F7GC Introduction of Other Therapeutic Substance into Respiratory Tract, Via Natural or Artificial Opening (ICD-10-PCS; 2017-10-16)
PROC: 0W9G3ZZ Drainage of Peritoneal Cavity, Percutaneous Approach (ICD-10-PCS; 2017-10-29)
DX: D62 Acute posthemorrhagic anemia (principal); R57.8 Other shock; E43 Unspecified severe protein-calorie malnutrition; J18.9 Pneumonia, unspecified organism; N17.9 Acute kidney failure, unspecified; K85.90 Acute pancreatitis without necrosis or infection, unspecified; E87.0 Hyperosmolality and hypernatremia; D69.6 Thrombocytopenia, unspecified; I42.9 Cardiomyopathy, unspecified; I69.354 Hemiplegia and hemiparesis following cerebral infarction affecting left non-dominant side; R18.8 Other ascites; J44.0 Chronic obstructive pulmonary disease with (acute) lower respiratory infection; L97.428 Non-pressure chronic ulcer of left heel and midfoot with other specified severity; L97.418 Non-pressure chronic ulcer of right heel and midfoot with other specified severity; K76.6 Portal hypertension; S30.1XXA Contusion of abdominal wall, initial encounter; E83.39 Other disorders of phosphorus metabolism; I11.0 Hypertensive heart disease with heart failure; I48.0 Paroxysmal atrial fibrillation; I50.9 Heart failure, unspecified; I48.2 Chronic atrial fibrillation; E86.0 Dehydration; Z74.01 Bed confinement status; F41.9 Anxiety disorder, unspecified; G40.909 Epilepsy, unspecified, not intractable, without status epilepticus; K74.60 Unspecified cirrhosis of liver; G89.4 Chronic pain syndrome; E78.00 Pure hypercholesterolemia, unspecified; B18.2 Chronic viral hepatitis C; R29.810 Facial weakness; R29.6 Repeated falls; I73.9 Peripheral vascular disease, unspecified; I25.10 Atherosclerotic heart disease of native coronary artery without angina pectoris; K44.9 Diaphragmatic hernia without obstruction or gangrene; M24.452 Recurrent dislocation, left hip; Z66 Do not resuscitate; L40.9 Psoriasis, unspecified; E04.1 Nontoxic single thyroid nodule; E87.6 Hypokalemia; M47.9 Spondylosis, unspecified; D63.8 Anemia in other chronic diseases classified elsewhere; G47.00 Insomnia, unspecified; Y95 Nosocomial condition; L97.529 Non-pressure chronic ulcer of other part of left foot with unspecified severity; I65.29 Occlusion and stenosis of unspecified carotid artery; E03.9 Hypothyroidism, unspecified; R16.1 Splenomegaly, not elsewhere classified; G47.33 Obstructive sleep apnea (adult) (pediatric); E83.42 Hypomagnesemia; F03.90 Unspecified dementia, unspecified severity, without behavioral disturbance, psychotic disturbance, mood disturbance, and anxiety; K52.9 Noninfective gastroenteritis and colitis, unspecified; W19.XXXA Unspecified fall, initial encounter; Y92.009 Unspecified place in unspecified non-institutional (private) residence as the place of occurrence of the external cause; Z79.01 Long term (current) use of anticoagulants; Z91.81 History of falling; Z95.5 Presence of coronary angioplasty implant and graft; Z87.891 Personal history of nicotine dependence; Z88.0 Allergy status to penicillin

== ENCOUNTER 2018-02-03 18:42 | Inpatient (IN) | payer MEDICARE, OTHER ==
--- NOTE | 2018-02-03 19:23 | ED PDOC ---
Arrival/HPI - General Chief Complaint: Female Genitourinary Time Seen by Provider: 02/03/18 18:58 Historian: Patient, Family (daughter) - History of Present Illness Narrative History of Present Illness (Text): 02/03/18 19:23 A 77 year old female, whose past medical history includes hypertension, pneumonia, and CVA, is BIBA, and accompanied by daughter presents to the emergency department complaining of catheter problem. Patient's daughter reports catheter was placed incorrectly and no urine will go through. Patient has been given 4 8oz of water and soda, but still no urine present in sy bag. Also, daughter is concerned patient may have possible fever and cough. It is also noted as patient was in ambulance, while on stretcher as it was being adjusted, patient's left arm sustained injury. PMD: Dr. Alberto 02/09/18 13:26 Past Medical History - Provider Review Nursing Documentation Reviewed: Yes - Infectious Disease Hx of Infectious Diseases: None - Tetanus Immunization Tetanus Immunization: Unknown - Cardiac Hx Hypertension: Yes - Pulmonary Hx Respiratory Disorders: Yes Hx Pneumonia: Yes - Neurological HX Cerebrovascular Accident: Yes - HEENT Hx HEENT Disorder: No - Renal Hx Renal Disorder: No - Endocrine/Metabolic Hx Endocrine Disorders: No - Hematological/Oncological Hx Blood Disorders: Yes Hx Anemia: Yes Hx Hepatitis C: Yes - Integumentary Hx Dermatological Disorder: No - Musculoskeletal/Rheumatological Hx Falls: Yes - Gastrointestinal Hx Gastrointestinal Disorders: Yes (aspiration precaution.Pureed diet.) - Genitourinary/Gynecological Hx Genitourinary Disorders: Yes (uti,incontinent,ARF) Hx Reproductive Disorders: No - Psychiatric Hx Psychophysiologic Disorder: No Hx Substance Use: No - Past Surgical History Past Surgical History: Non-Contributing - Surgical History Hx Appendectomy: Yes Hx Cardiac Catheterization: Yes Hx Coronary Stent: Yes Hx Orthopedic Surgery: Yes ("right hip hemiarthroplasty") - Anesthesia Hx Anesthesia: Yes Hx Anesthesia Reactions: No Hx Malignant Hyperthermia: No - Suicidal Assessment Feels Threatened In Home Enviroment: No Family/Social History - Physician Review Nursing Documentation Reviewed: Yes Family/Social History: No Known Family HX Smoking Status: Never Smoked Hx Alcohol Use: No Hx Substance Use: No Hx Substance Use Treatment: No Allergies/Home Meds Allergies/Adverse Reactions: Allergies Penicillins Adverse Reaction (Intermediate, Verified 10/04/17 17:22) RASH Home Medications: Home Meds Medication Instructions Recorded Confirmed Losartan [Cozaar] 50 mg PO BID 09/28/17 10/13/17 Review of Systems - Physician Review All systems were reviewed & negative as marked: Yes - Review of Systems Constitutional: Fevers (possibly according to daughter) Respiratory: Cough Genitourinary Female: Other (catheter problem, no urine output) Physical Exam Vital Signs Reviewed: Yes Vital Signs Temp Pulse Resp BP Pulse Ox 02/03/18 19:10 98.5 F 67 24 133/56 L 95 Temperature: Afebrile Blood Pressure: Normal Pulse: Regular Respiratory Rate: Normal Appearance: Positive for: Cachectic Pain Distress: None Mental Status: Positive for: Alert and Oriented X 3 - Systems Exam Respiratory/Chest: Present: Clear to Auscultation, Good Air Exchange. No: Respiratory Distress, Accessory Muscle Use Cardiovascular: Present: Regular Rate and Rhythm, Normal S1, S2. No: Murmurs Upper Extremity: Present: Other (skin tear left arm, contracted) Psychiatric: Present: Alert, Oriented x 3, Normal Insight, Normal Concentration Medical Decision Making ED Course and Treatment: 02/03/18 19:27 Impression: 77 year old female with sy catheter displacement, cough, fever, and left-arm injury. Physical exam shows patient appears cachectic and visible skin tear on left arm. Plan: -- Chest X-ray -- Sy Catheter Insertion -- Left Elbow X-ray -- Left Forearm X-ray -- Left Shoulder X-ray -- Left Wrist X-Ray -- Reassess and disposition Progress Notes: 02/09/18 13:[address] alberto bedside. sy replaced with drainage cxr with infiltrate. accepted for admission - RAD Interpretation Radiology Orders: 02/03/18 19:21 CHEST TWO VIEWS (PA/LAT) [RAD] Stat ELBOW LEFT 3 VIEWS ROUTINE [RAD] Stat SHOULDER LEFT [RAD] Stat WRIST, LEFT 3 VIEWS [RAD] Stat 02/03/18 19:22 FOREARM LEFT [RAD] Stat - Medication Orders Current Medication Orders: Acetaminophen (Tylenol 325mg Tab) 650 mg PO Q4 PRN PRN Reason: Fever >100.4 F Last Admin: 02/06/18 05:57 Dose: 650 mg MAR Pain/Vitals Document 02/06/18 05:57 HENRIQUE (Rec: 02/06/18 05:58 BK [id number]) Vitals Temperature (97.6 F-99.6 F) 101.4 F Temperature Source Oral Acetylcysteine (Acetylcysteine 20%) 3 ml IH BIDRESP [facility] Albuterol/Ipratropium (Duoneb 3 Mg/0.5 Mg (3 Ml) Ud) 3 ml IH QIDRESP [facility] Amlodipine Besylate (Norvasc) 5 mg PO DAILY [facility] Last Admin: 02/09/18 09:40 Dose: 5 mg Aspirin (Aspirin Chewable) 81 mg PO DAILY [facility] Last Admin: 02/09/18 09:40 Dose: 81 mg Azithromycin (Zithromax) 500 mg PO DAILY [facility] Clonidine HCl (Catapres-Tts3 0.3 Mg/24 Hr) 1 patch TD Q7D@1000 [facility] Clonidine HCl (Catapres) 0.1 mg PO Q6 PRN PRN Reason: systolic bp >170 Last Admin: 02/07/18 08:18 Dose: 0.1 mg MAR Pulse and Blood Pressure Document 02/07/18 08:18 SOUSV (Rec: 02/07/18 08:18 SOUS [email or web address]) Pulse Pulse Rate (60-90) 93 Blood Pressure Blood Pressure (100/60-150/90) 182/80 Hydralazine HCl (Apresoline) 100 mg PO TID [facility] Last Admin: 02/09/18 09:44 Dose: 100 mg Meropenem (Merrem Iv 1 Gm Premix) 50 mls @ 100 mls/hr IVPB Q8 [facility] PRN Reason: Protocol Last Admin: 02/09/18 06:36 Dose: 100 mls/hr eMAR Start Stop Document 02/09/18 06:36 [email or web address] (Rec: 02/09/18 06:37 [email or web address] [id number]) Intravenous Solution Start Date 02/09/18 Start Time 06:37 End Date 02/09/18 End time 07:10 Total Infusion Time 33 Vancomycin HCl (Vancomycin 1gm) 1 gm in 250 mls @ 167 mls/hr IVPB Q12H [facility] PRN Reason: Protocol Last Admin: 02/09/18 12:49 Dose: 167 mls/hr eMAR Start Stop Document 02/09/18 12:49 LMN (Rec: 02/09/18 12:49 LMN [id number]) Intravenous Solution Start Date 02/09/18 Start Time 12:49 Amino Acids (Clinimix 5/20 % (1000 Ml)) 1,000 mls @ 42 mls/hr IV .[id number] [facility] Stop: 02/10/18 17:25 Last Admin: 02/08/18 18:14 Dose: 42 mls/hr eMAR Start Stop Document 02/08/18 18:14 SOUSV (Rec: 02/08/18 18:14 SOUSV [id number]) Intravenous Solution Start Date 02/08/18 Start Time 18:14 End Date 02/09/18 End time 18:14 Total Infusion Time 1440 Levetiracetam (Keppra) 500 mg PO BID [facility] Last Admin: 02/09/18 09:41 Dose: 500 mg Magnesium Oxide (Mag-Ox) 400 mg PO BID [facility] Last Admin: 02/09/18 09:40 Dose: 400 mg Metoprolol Tartrate (Lopressor) 50 mg PO BRKDIN [facility] Last Admin: 02/09/18 09:40 Dose: 50 mg Mirtazapine (Remeron) 30 mg PO HS [facility] Last Admin: 02/08/18 22:27 Dose: 30 mg Mupirocin (Bactroban Ointment) 0 gm TOP BID [facility] Last Admin: 02/08/18 18:08 Dose: 1 applic Oxycodone HCl (Oxycodone Immediate Release Tab) 10 mg PO Q8H PRN PRN Reason: Pain, severe (8-10) Last Admin: 02/07/18 20:50 Dose: 10 mg [facility] Pain Assessment Document 02/07/18 20:50 RM (Rec: 02/07/18 20:51 RM [id number]) Pain Reassessment Is this a pain reassessment? No Sleep Is patient sleeping during reassessment? No Presence of Pain Presence of Pain Yes Re-Assess: [facility] Pain Assessment Document 02/07/18 21:50 RM (Rec: 02/08/18 05:19 RM [id number]) Pain Reassessment Is this a pain reassessment? Yes Sleep Is patient sleeping during reassessment? No Presence of Pain Presence of Pain No Pantoprazole Sodium (Protonix Ec Tab) 40 mg PO DAILY [facility] Last Admin: 02/09/18 09:40 Dose: 40 mg Trazodone HCl (Desyrel) 50 mg PO HS [facility] Last Admin: 02/08/18 22:26 Dose: 50 mg Valsartan (Diovan) 320 mg PO DAILY [facility] Last Admin: 02/09/18 09:41 Dose: 320 mg Warfarin Sodium (Coumadin) 0.5 mg PO 1800 [facility] PRN Reason: Protocol Last Admin: 02/08/18 18:06 Dose: 0.5 mg Zolpidem Tartrate (Ambien) 5 mg PO HS PRN; Protocol PRN Reason: Sleep Last Admin: 02/06/18 22:09 Dose: 5 mg Behavioural Document 02/06/18 22:09 [facility] (Rec: 02/06/18 22:10 [facility] [id number]) Maintenance Maintenance Dose No Nonmedicinal Nonmedicinal Interventions Therapeutic Communication Behavior Behavior for Medication: Insomnia Re-Assess: Reassess Psych Meds Document 02/06/18 23:09 [facility] (Rec: 02/07/18 01:26 [id number]) Reassess Psych Med Effective Discontinued Medications Acetylcysteine (Acetylcysteine 20%) 3 ml IH BID [facility] Last Admin: 02/09/18 08:06 Dose: 3 ml Albuterol/Ipratropium (Duoneb 3 Mg/0.5 Mg (3 Ml) Ud) 3 ml IH QID [facility] Last Admin: 02/09/18 11:36 Dose: 3 ml Clonidine HCl (Catapres) 0.1 mg PO PRN PRN PRN Reason: systolic bp >170 Ciprofloxacin (Cipro 400mg/200ml Dsw) 400 mg in 200 mls @ 133.3 mls/hr IVPB STAT STA PRN Reason: Protocol Stop: 02/03/18 23:15 Last Admin: 02/04/18 10:04 Dose: 133.3 mls/hr eMAR Start Stop Document 02/04/18 10:04 LO (Rec: 02/04/18 10:04 LO [email or web address]) Intravenous Solution Start Date 02/04/18 Start Time 10:04 End Date 02/04/18 End time 11:35 Total Infusion Time 91 Vancomycin HCl (Vancomycin 1gm) 1 gm in 250 mls @ 167 mls/hr IVPB STAT STA PRN Reason: Protocol Stop: 02/03/18 23:14 Last Admin: 02/04/18 05:42 Dose: 167 mls/hr eMAR Start Stop Document 02/04/18 05:42 OLIVD (Rec: 02/04/18 05:43 OLIVD [id number]) Intravenous Solution Start Date 02/04/18 Start Time 05:42 End Date 02/04/18 End time 07:12 Total Infusion Time 90 Azithromycin (Zithromax 500mg In Ns) 500 mg in 250 mls @ 167 mls/hr IVPB DAILY [facility] PRN Reason: Protocol Last Admin: 02/09/18 09:41 Dose: 167 mls/hr eMAR Start Stop Document 02/09/18 09:41 LMN (Rec: 02/09/18 09:44 LMN [id number]) Intravenous Solution Start Date 02/09/18 Start Time 09:41 Potassium Chloride (Potassium Chloride 20 Meq/100 Ml) 20 meq in 100 mls @ 50 mls/hr IVPB Q2H [facility] Stop: 02/06/18 17:29 Last Admin: 02/06/18 17:30 Dose: 50 mls/hr eMAR Start Stop Document 02/06/18 17:30 TW (Rec: 02/06/18 17:30 TW [email or web address]) Intravenous Solution Start Date 02/06/18 Start Time 17:30 End Date 02/06/18 End time 19:30 Total Infusion Time 120 Amino Acids (Clinimix 5/20 % (1000 Ml)) 1,000 mls @ 42 mls/hr IV .[id number] [facility] Last Admin: 02/06/18 18:07 Dose: Oxycodone HCl (Oxycodone Immediate Release Tab) 15 mg PO Q8H PRN PRN Reason: Pain, severe (8-10) Last Admin: 02/05/18 12:26 Dose: 15 mg Potassium Chloride (Potassium Chloride Oral Soln) 20 meq PO STAT ST[facility] Stop: 02/06/18 07:24 Last Admin: 02/06/18 14:08 Dose: Potassium Chloride (K-Dur 20 Meq Er Tab) 20 meq PO ONCE ONE Stop: 02/06/18 07:37 Last Admin: 02/06/18 09:11 Dose: 20 meq - Scribe Statement The provider has reviewed the documentation as recorded by the Ejibalejandro Nugent Provider Scribe Attestation: All medical record entries made by the Ejibalejandro were at my direction and personally dictated by me. I have reviewed the chart and agree that the record accurately reflects my personal performance of the history, physical exam, medical decision making, and the department course for this patient. I have also personally directed, reviewed, and agree with the discharge instructions and disposition. Disposition/Present on Arrival - Present on Arrival Any Indicators Present on Arrival: No History of DVT/PE: No History of Uncontrolled Diabetes: No Urinary Catheter: Yes History of Decub. Ulcer: No History Surgical Site Infection Following: None - Disposition Have Diagnosis and Disposition been Completed?: Yes Diagnosis: Pneumonia Disposition: HOSPITALIZED Disposition Time: 11:00 Patient Problems: Current Active Problems Problem Status Onset Pneumonia Acute Condition: FAIR
[2018-02-03] MEDS ORDERED: Vancomycin 1gm in NS 250ml 1 GM/250 ML BAG IVPB STA (21:45)
[2018-02-03] MEDS ORDERED: Ciprofloxacin 400mg/200ml D5W 400 MG/200 ML BAG IVPB STA (21:45)
[2018-02-04 00:07] LABS: BASO # 0.01 K/mm3 (0.0-2.0); BASO % 0.1 % (0.0-3.0); EOS % 0.2 % (1.5-5.0); GRAN # 6.96 (1.4-6.5); GRAN % 82.3 % (50.0-68.0); LYMPH # 0.7 (1.2-3.4); LYMPH % 8.7 % (22.0-35.0); MEAN CELL VOLUME 95.1 fl (80.0-105.0); MEAN CORPUSCULAR HEMOGLOBIN 31.9 pg (25.0-35.0); MEAN CORPUSCULAR HGB CONC 33.6 g/dl (31.0-37.0); MEAN PLATELET VOLUME 9.3 fl (7.0-11.0); MONO # 0.7 (0.1-0.6); MONO % 8.7 % (1.0-6.0); RBC 2.88 10^6/uL (3.5-6.1); RED CELL DISTRIBUTION WIDTH 12.9 % (11.5-14.5)
[2018-02-04 00:13] LABS: INR 1.21 (0.93-1.08); PROTHROMBIN TIME 13.8 SECONDS (9.4-12.5)
[2018-02-04 00:15] LABS: WHITE BLOOD COUNT 8.5 10^3/ul (4.5-11.0)
[2018-02-04 00:17] LABS: HEMOGLOBIN 9.2 g/dL (12.0-16.0)
[2018-02-04 00:23] LABS: ALBUMIN 3.3 g/dL (3.0-4.8); ALT/SGPT 30 U/L (7-56); AST/SGOT 40 U/L (14-36); BLOOD UREA NITROGEN 27 mg/dL (7-21); CALCIUM 8.1 mg/dL (8.4-10.5); GFR AFRICAN-AMERICAN > 60; GFR NON-AFRICAN AMERICAN > 60
[2018-02-04 02:43] VITALS: BMI 21.2
--- NOTE | 2018-02-04 09:13 | RAD ---
HISTORY: cough COMPARISON: 10/13/2017 TECHNIQUE: Chest PA and lateral FINDINGS: LUNGS: There is an infiltrate at the right lung base. PLEURA: Small left effusion CARDIOVASCULAR: A stent graft is seen in the descending aorta. The heart is normal in size OSSEOUS STRUCTURES: No significant abnormalities. VISUALIZED UPPER ABDOMEN: Normal. OTHER FINDINGS: None. IMPRESSION: Infiltrate at the right lung base
--- NOTE | 2018-02-04 10:03 | RAD ---
PROCEDURE: Radiographs of the Left Forearm HISTORY: trauma COMPARISON: None available. TECHNIQUE: Frontal and lateral views obtained. FINDINGS: BONES: No fracture or destructive lesion. JOINT SPACES: Unremarkable. OTHER FINDINGS: None. IMPRESSION: Unremarkable radiographs of the left forearm.
--- NOTE | 2018-02-04 10:04 | RAD ---
PROCEDURE: Radiographs of the left elbow. HISTORY: trauma COMPARISON: No prior. FINDINGS: BONES: Normal. No fracture. JOINTS: Normal. No osteoarthritis. SOFT TISSUES: Normal. JOINT EFFUSION: None. OTHER FINDINGS: None IMPRESSION: Unremarkable radiographs of the left elbow.
--- NOTE | 2018-02-04 10:06 | RAD ---
PROCEDURE: Radiographs of the Left Shoulder HISTORY: trauma COMPARISON: No prior. FINDINGS: BONES: Normal. No fracture. JOINTS: Normal. Glenohumeral and acromioclavicular joints preserved. No osteoarthritis. SOFT TISSUES: Normal. OTHER FINDINGS: None. IMPRESSION: Normal radiographs of the left shoulder.
--- NOTE | 2018-02-04 10:06 | RAD ---
PROCEDURE: Left Wrist Radiographs. HISTORY: trauma COMPARISON: None. FINDINGS: BONES: Normal. No fracture. JOINTS: Normal. No dislocation. SOFT TISSUES: Normal. OTHER FINDINGS: None. IMPRESSION: Normal left wrist radiographs.
[2018-02-04] MEDS ORDERED: oxyCODONE 15 mg Immediate Release Tab PO PRN (11:40)
[2018-02-04] MEDS ORDERED: cefTRIAXone 1 gm 1 GM/100 ML BAG IVPB SCH (12:15)
[2018-02-04] MEDS: levETIRAcetam 500 mg/5ml UD cups PO SCH ×2 (12:33→18:25)
[2018-02-04] MEDS: Magnesium Oxide 400 mg Tab UD PO SCH ×2 (12:33→18:24)
[2018-02-04] MEDS: Pantoprazole 40 mg EC Tab PO SCH (12:34)
[2018-02-04] MEDS: Meropenem IV 1 gm in NS 50 ML IVPB SCH ×2 (14:07→22:00)
--- NOTE | 2018-02-04 19:52 | CP.PCM.CON ---
History of Present Illness - History of Present Illness History of Present Illness: 77 year old female with PMH of atrial fibrillation, cerebrovascular accident, history of aortic dissection, seizure disorder, history of thrombocytopenia, HTN , hypercholesterolemia, chronic pain syndrome, history of decubitus ulcers, Chronic active hepatitis C, CVA with left hemiplegia, history of ESBL-producing E. coli UTI was brought in to [facility] because of problems with her urinary catheter. She was also having increasing cough and was noted to have fever at home. In the ED, she was also noted to have low grade fever. The patient states that her cough is worsening, and she also has occasional shortness of breath at rest. She denies headache or dizziness, no sore throat, no rhinorrhea, no chest pain, no abdominal pain, no nausea or vomiting, no diarrhea, no dysuria. CXR is showing right lung base opacity. Infectious Diseases consult is requested to further evaluate and manage. Review of Systems - Review of Systems All systems: reviewed and no additional remarkable complaints except (as per HPI ) Past Patient History - Infectious Disease Hx of Infectious Diseases: None - Tetanus Immunizations Tetanus Immunization: Unknown - Past Social History Smoking Status: Former Smoker - CARDIAC Hx Cardia Arrhythmia: Yes (A-FIB) Hx Congestive Heart Failure: Yes Hx Hypercholesterolemia: Yes Hx Peripheral Edema: Yes Other/Comment: HYPERLIPIDEMIA - PULMONARY Hx Pneumonia: Yes - NEUROLOGICAL Hx Neurological Disorder: Yes HX Cerebrovascular Accident: Yes (LEFT PARALYSIS) Hx Seizures: Yes Hx Transient Ischemic Attacks (TIA): Yes - HEENT Hx HEENT Problems: No - RENAL Hx Chronic Kidney Disease: Yes Hx Renal Failure: Yes - ENDOCRINE/METABOLIC Hx Endocrine Disorders: No - HEMATOLOGICAL/ONCOLOGICAL Hx Anemia: Yes Hx Hepatitis C: Yes - INTEGUMENTARY Hx Dermatological Problems: No - MUSCULOSKELETAL/RHEUMATOLOGICAL Hx Falls: Yes - GASTROINTESTINAL Other/Comment: HEP C - GENITOURINARY/GYNECOLOGICAL Hx Genitourinary Disorders: Yes Other/Comment: 2WF. B/L BREAST IMPLANTS - PSYCHIATRIC Hx Substance Use: No - SURGICAL HISTORY Hx Surgeries: Yes Hx Cardiac Catheterization: Yes - ANESTHESIA Hx Anesthesia: Yes Hx Anesthesia Reactions: No Hx Malignant Hyperthermia: No Meds Allergies/Adverse Reactions: Allergies Allergy/AdvReac Type Severity Reaction Status Date / Time Penicillins AdvReac Intermediate RASH Verified 10/04/17 17:22 - Medications Medications: Current Medications Aspirin (Aspirin Chewable) 81 mg PO DAILY [facility] Clonidine HCl (Catapres-Tts3 0.3 Mg/24 Hr) 1 patch TD Q7D@1000 [facility] Hydralazine HCl (Apresoline) 100 mg PO TID [facility] Azithromycin (Zithromax 500mg In Ns) 500 mg in 250 mls @ 167 mls/hr IVPB DAILY [facility] PRN Reason: Protocol Ceftriaxone Sodium (Rocephin 1 Gram Ivpb) 1 gm in 100 mls @ 100 mls/hr IVPB DAILY [facility] PRN Reason: Protocol Stop: 02/08/18 10:59 Levetiracetam (Keppra) 500 mg PO BID [facility] Magnesium Oxide (Mag-Ox) 400 mg PO BID [facility] Metoprolol Tartrate (Lopressor) 50 mg PO BRKDIN [facility] Mirtazapine (Remeron) 30 mg PO HS [facility] Oxycodone HCl (Oxycodone Immediate Release Tab) 15 mg PO Q8H PRN PRN Reason: Pain, severe (8-10) Pantoprazole Sodium (Protonix Ec Tab) 40 mg PO DAILY [facility] Trazodone HCl (Desyrel) 50 mg PO HS [facility] Valsartan (Diovan) 320 mg PO DAILY [facility] Warfarin Sodium (Coumadin) 0.5 mg PO 1800 [facility] PRN Reason: Protocol Zolpidem Tartrate (Ambien) 5 mg PO HS PRN; Protocol PRN Reason: Sleep Physical Exam - Constitutional Appears: Chronically Ill - Head Exam Head Exam: NORMAL INSPECTION - Neck Exam Neck exam: Negative for: Meningismus - Respiratory Exam Respiratory Exam: Decreased Breath Sounds - Cardiovascular Exam Cardiovascular Exam: +S1, +S2 - GI/Abdominal Exam GI & Abdominal Exam: Soft. absent: Tenderness Results - Vital Signs Recent Vital Signs: Last Vital Signs Temp 100.7 F H 02/04/18 06:00 Pulse 77 02/04/18 06:00 Resp 20 02/04/18 06:00 BP 138/61 02/04/18 06:00 Pulse Ox 93 L 02/04/18 06:00 - Labs Result Diagrams: 02/03/18 23:00 02/03/18 23:00 Labs: Laboratory Results - last 24 hr 02/03/18 02/03/18 02/03/18 23:00 23:00 23:00 WBC 8.5 D RBC 2.88 L Hgb 9.2 L D Hct 27.4 L MCV 95.1 MCH 31.9 MCHC 33.6 RDW 12.9 Plt Count 100 L MPV 9.3 Gran % 82.3 H Lymph % (Auto) 8.[address] [place] % (Auto) 8.7 H Eos % (Auto) 0.2 L Baso % (Auto) 0.1 Gran # 6.96 H Lymph # (Auto) 0.[address] [place] # (Auto) 0.7 H Eos # (Auto) 0.0 Baso # (Auto) 0.01 PT 13.8 H INR 1.21 H APTT 29.0 Sodium 128 L Potassium 4.5 Chloride 95 L Carbon Dioxide 24 Anion Gap 14 BUN 27 H Creatinine 0.8 Est GFR ( Amer) > 60 Est GFR (Non-Af Amer) > 60 Random Glucose 92 Calcium 8.1 L Total Bilirubin 1.0 AST 40 H ALT 30 Alkaline Phosphatase 109 Total Protein 6.7 Albumin 3.3 Globulin 3.4 Albumin/Globulin Ratio 1.0 L Assessment & Plan - Assessment and Plan (Free Text) Plan: Assessment Sepsis due to right lower lobe HCAP history of left rectus sheath hematoma history of acute pancreatitis Stage 4 decubitus ulcer history of right lower lobe healthcare-associated pneumonia history of ESBL E. coli and Enterococcus UTI history of ESBL E. coli UTI atrial fibrillation cerebrovascular accident history of aortic dissection seizure disorder history of thrombocytopenia HTN hypercholesterolemia chronic pain syndrome history of decubitus ulcers chronic active hepatitis C Plan gave a dose of IV Vancomycin and started Merrem and Zithromax pending blood, sputum cx, PCT; reviewed CXR will monitor clinically
[2018-02-04] MEDS: Acetylcysteine 20% Inhal Soln (4ml) IH SCH (20:37)
[2018-02-04] MEDS: Albuterol-Ipratrop 3 mg / 0.5 (3 ml) UD IH SCH (20:38)
--- NOTE | 2018-02-04 22:56 | HP ---
CHIEF COMPLAINT: The patient came in, brought in by the daughter because the patient had a fever of 101 at home, has been coughing plus catheter problem. HISTORY OF PRESENT ILLNESS: The patient is bedridden. Her daughter is taking good care of her. She kept her on Lasix 20 mg with good result for her ascites and she was doing well. She came in because seems productive , the patient cannot get the phlegm out in spite of suctioning; however, the patient noted that the cough is not getting better, she has fever of 101 and at one time 102. She got Levaquin, it seems not helping. Brought in to the emergency room for further treatment and evaluations. Also seen by the nurse that put a catheter. There was a problem with placement of the catheter; however, the patient came in and the catheter was placed and urine was coming out. There is no any other complaint. No nausea. No vomiting. She does have difficulty swallowing. She is taking Ensure 4 to 5 cans a day, seems doing well with that. 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 Chronic atrial fibrillations. ALLERGIES: PENICILLIN. SOCIAL HISTORY: She lives at home. No smoke. No drink. Supportive family, daughter. REVIEW OF SYSTEMS: She is bedridden. She is not walking. She does have left hemiplegia, difficulty walking, ambulation. She did have at one time sacral decubitus, which seems improving a lot and almost healed completely. She also has chronic cough. Memory is impaired somehow. Constipations occasionally happen. Frequent dysuria, incontinence, dysphagia. PHYSICAL EXAMINATION: GENERAL: The patient was seen in the emergency room on 02/03/2018. VITAL SIGNS: Temperature 98.5, heart rate 67, blood pressure 133/56, respirations 24, saturation 95. HEAD AND NECK: Normal. No JVD. No thyromegaly. CHEST: Clear, but diminished breath sounds at the bases. CARDIAC: First sound and second sound normal. ABDOMEN: Soft, nontender. EXTREMITIES: Lower extremities, no edema. NEUROLOGIC: Left hemiplegia and dysphagia. LABORATORY DATA: The patient had sodium 128, potassium 4.5, chloride 95, bicarb 24, BUN 27, creatinine 0.8. Liver function test is normal except AST is 40, which is elevated. White count 8.5, hemoglobin 9.2, hematocrit 27.4, platelet is 100. Her PT 15.8, PT/INR 1.21, PTT 29. The patient takes low-dose Coumadin, she did have significant bleeding in the past. Chest x-ray shows left lower lobe infiltrates. Her x-rays of the left shoulder, left elbow and forearm were negative. IMPRESSION AND PLAN: 1. A 77-year-old female with a history of cerebrovascular accident, bedridden, dysphasia, probably has some coughing and fever 101 and x-ray shows infiltrates. We will admit the patient for possible pneumonia, aspiration. We will get Pulmonary consult and Infectious Disease consultations. We will put the patient on IV antibiotics. She got Cipro and vancomycin, and we will follow up clinically and we will see how the patient does. Palliative care will be a good option for this patient to keep her comfortable. We will maintain her on all her medicines. We will resume all her medications, low-dose Coumadin, avoid any extra Coumadin bleeding. Risk of stroke also high, but risk of bleeding is more higher here because of significant bleeding and complication from it before. 2. Cerebrovascular accident, atrial fibrillations, hypertension, hypercholesterolemia, chronic obstructive pulmonary disease. We will resume all medications. We will follow up with other consultants and including Palliative Care. Albin Forte MD
--- NOTE | 2018-02-05 05:44 | CON ---
DATE: 02/04/2018 REASON FOR CONSULTATION AND FOLLOWUP: History of coronary artery disease, paroxysmal atrial fibrillation, admitted with fevers, sepsis, possible UTI, cardiac evaluation. BRIEF CLINICAL HISTORY: This is a 77-year-old female with past medical history significant for paroxysmal atrial fibrillation, urinary tract infection, recurrent anemia, seizure disorder, GI bleed, gastroenteritis, cholecystitis, recently discharged, came into the hospital because of possible displacement of indwelling Bush catheter and then I noticed that left arm is limping so I admitted here. Denies any chest pain, shortness of breath or any palpitation. PAST MEDICAL HISTORY: Significant for rectus sheath hematoma, on Coumadin, paroxysmal atrial fibrillation, history of endovascular graft, descending thoracic aortic aneurysm, history of cardiac catheterization on 11/05/2013 for nonobstructive coronary artery disease, mild LAD, myocardial bridge, history is significant also for endovascular stent placement, type B aortic dissection, history of trace mitral regurgitation, history of trace aortic regurgitation by echo, RV systolic pressure of 37, history of anemia, history of diastolic dysfunction, history of GI bleed, negative GI workup for bleed, history of stroke with left-sided weakness and contracture of left upper extremity, history of abdominal aortic aneurysm as mentioned above, history of multiple CVA, history of last CAT scan on 04/18/2016, endovascular leak and medical treatment recommended. SOCIAL HISTORY: Denies any history of alcohol abuse. CURRENT MEDICATIONS: The patient is on trazodone, oxycodone, Keppra, hydralazine, Coumadin, valsartan, metoprolol 50 mg twice a day, magnesium, aspirin. REVIEW OF SYSTEMS: As per HPI. PHYSICAL EXAMINATION: As follows; VITAL SIGNS: Temperature 100.7, heart rate 77, blood pressure 138/61. HEENT: PERRLA intact. NECK: Supple. No carotid bruit or thyromegaly. CHEST: Clear to auscultation. HEART: S1 and S2 regular. ABDOMEN: Soft. EXTREMITIES: Clubbing and cyanosis negative. DIAGNOSTIC DATA: EKG pending, not available in the chart. LABORATORY DATA: Blood workup: WBC is 8.5, hemoglobin 9.8, hematocrit 27.4, platelet count 100. Chemistry shows sodium 128, potassium 4.5, chloride 95, carbon dioxide 24, anion gap of 14, BUN 27, creatinine 0.8. Total protein 6.7, albumin 3.3, albumin-globulin ratio 1. Previous EKG showed normal sinus. IMPRESSION: This is a 77-year-old female with past medical history significant for nonobstructive coronary artery disease; status post cardiac catheterization in 2013, nonobstructive coronary artery disease, history of gastrointestinal bleed, history of paroxysmal atrial fibrillation, history of endovascular stent, history of abdominal aortic aneurysm, type B, status post endovascular stent secondary to thoracic descending aortic aneurysm, history of rectus davy hematoma spontaneously on Coumadin low doses, left sided cerebrovascular accident, multiple cerebrovascular accidents with left-sided weakness and contracture deformity of left upper extremity, admitted with possible urinary tract infection and displacement and dislodgement of Bush catheter, history of cardiac catheterization on 11/05/2013, nonobstructive coronary artery disease. Last echo shows mild aortic regurgitation. RECOMMENDATION: Porter culture, broad-spectrum antibiotic as per ER physician. Resume beta-poli. Continue Coumadin of INR . We will follow with you. Patient has a history of previous bleed, so be cautious of anticoagulation. We will review if no previous echo was done recently. We will get echo to assess LV function and regurgitant valvular disease. Thank you, Dr. Forte, for providing us the opportunity in taking care of patient, Emilia Marcos. We will follow with you. Anushka Wilkerson MD
[2018-02-05 06:30] LABS: BASO # 0.01 K/mm3 (0.0-2.0); BASO % 0.1 % (0.0-3.0); GRAN # 10.72 (1.4-6.5); GRAN % 85.9 % (50.0-68.0); HEMOGLOBIN 10.1 g/dL (12.0-16.0); LYMPH # 0.5 (1.2-3.4); LYMPH % 4.1 % (22.0-35.0); MEAN CELL VOLUME 92.7 fl (80.0-105.0); MEAN CORPUSCULAR HEMOGLOBIN 31.9 pg (25.0-35.0); MEAN CORPUSCULAR HGB CONC 34.4 g/dl (31.0-37.0); MEAN PLATELET VOLUME 8.8 fl (7.0-11.0); MONO # 1.2 (0.1-0.6); MONO % 9.9 % (1.0-6.0); PLATELET COUNT 135 10^3/uL (120.0-450.0); RBC 3.17 10^6/uL (3.5-6.1); RED CELL DISTRIBUTION WIDTH 12.8 % (11.5-14.5); WHITE BLOOD COUNT 12.5 10^3/ul (4.5-11.0)
[2018-02-05 06:38] LABS: INR 1.26 (0.93-1.08); PROTHROMBIN TIME 14.5 SECONDS (9.4-12.5)
[2018-02-05] MEDS: Meropenem IV 1 gm in NS 50 ML IVPB SCH ×3 (06:59→21:20)
[2018-02-05 07:33] LABS: LDL CHOLESTEROL 56 mg/dL (0-129)
[2018-02-05 07:38] LABS: ALBUMIN 3.5 g/dL (3.0-4.8); ALT/SGPT 27 U/L (7-56); AST/SGOT 34 U/L (14-36); BLOOD UREA NITROGEN 25 mg/dL (7-21); CALCIUM 8.8 mg/dL (8.4-10.5); GFR AFRICAN-AMERICAN > 60; GFR NON-AFRICAN AMERICAN > 60; HDL CHOLESTEROL 32 mg/dL (29-60)
[2018-02-05] MEDS: Acetylcysteine 20% Inhal Soln (4ml) IH SCH ×3 (07:59→19:27)
[2018-02-05] MEDS: Albuterol-Ipratrop 3 mg / 0.5 (3 ml) UD IH SCH ×4 (08:00→19:26)
--- NOTE | 2018-02-05 08:14 | CP.PCM.PN ---
Subjective - Date & Time of Evaluation Date of Evaluation: 02/05/18 Time of Evaluation: 06:35 - Subjective Subjective: I feel pain on my buttocks from current position, denies shortness of breath, denies chest pain Reason for consult and follow up: Cardiac evaluation, history of non obstructive coronary artery disease, Atrial fibrillation, cerebrovascular disease, hypertension, hyperlcholesterolemia, abdominal aortic aneurysm Seen and examined by me and Dr. Wilkerson Objective - Vital Signs/Intake and Output Vital Signs (last 24 hours): Temp Pulse Resp BP Pulse Ox 99.1 F 127 H 19 180/97 H 91 L 02/05/18 07:37 02/05/18 07:37 02/05/18 07:37 02/05/18 07:37 02/05/18 07:37 Intake and Output: 02/05/18 02/05/18 06:59 18:59 Intake Total 0 Output Total 600 Balance -600 - Medications Medications: Current Medications Acetylcysteine (Acetylcysteine 20%) 3 ml IH BID [facility] Last Admin: 02/05/18 07:59 Dose: 3 ml Albuterol/Ipratropium (Duoneb 3 Mg/0.5 Mg (3 Ml) Ud) 3 ml IH QID [facility] Last Admin: 02/05/18 08:00 Dose: 3 ml Aspirin (Aspirin Chewable) 81 mg PO DAILY [facility] Last Admin: 02/04/18 12:32 Dose: 81 mg Clonidine HCl (Catapres-Tts3 0.3 Mg/24 Hr) 1 patch TD Q7D@1000 [facility] Clonidine HCl (Catapres) 0.1 mg PO Q6 PRN PRN Reason: systolic bp >170 Last Admin: 02/05/18 07:02 Dose: 0.1 mg Hydralazine HCl (Apresoline) 100 mg PO TID [facility] Last Admin: 02/04/18 18:22 Dose: 100 mg Azithromycin (Zithromax 500mg In Ns) 500 mg in 250 mls @ 167 mls/hr IVPB DAILY [facility] PRN Reason: Protocol Meropenem (Merrem Iv 1 Gm Premix) 50 mls @ 100 mls/hr IVPB Q8 [facility]UDE PRN Reason: Protocol Last Admin: 02/05/18 06:59 Dose: 100 mls/hr Levetiracetam (Keppra) 500 mg PO BID [facility] Last Admin: 02/04/18 18:25 Dose: 500 mg Magnesium Oxide (Mag-Ox) 400 mg PO BID [facility] Last Admin: 02/04/18 18:24 Dose: 400 mg Metoprolol Tartrate (Lopressor) 50 mg PO BRKDIN [facility] Mirtazapine (Remeron) 30 mg PO HS [facility] Last Admin: 02/04/18 22:00 Dose: 30 mg Oxycodone HCl (Oxycodone Immediate Release Tab) 15 mg PO Q8H PRN PRN Reason: Pain, severe (8-10) Pantoprazole Sodium (Protonix Ec Tab) 40 mg PO DAILY [facility] Last Admin: 02/04/18 12:34 Dose: 40 mg Trazodone HCl (Desyrel) 50 mg PO HS [facility] Last Admin: 02/04/18 22:00 Dose: 50 mg Valsartan (Diovan) 320 mg PO DAILY [facility] Last Admin: 02/04/18 12:33 Dose: 320 mg Warfarin Sodium (Coumadin) 0.5 mg PO 1800 [facility] PRN Reason: Protocol Last Admin: 02/04/18 18:23 Dose: 0.5 mg Zolpidem Tartrate (Ambien) 5 mg PO HS PRN; Protocol PRN Reason: Sleep - Labs Labs: 02/05/18 05:30 02/05/18 05:30 PT 14.5 SECONDS (9.4-12.5) H 02/05/18 05:30 INR 1.26 (0.93-1.08) H 02/05/18 05:30 APTT 29.0 Seconds (25.1-36.5) 02/03/18 23:00 - Constitutional Appears: No Acute Distress, Cachectic - ENT Exam ENT Exam: Mucous Membranes Moist - Respiratory Exam Respiratory Exam: Decreased Breath Sounds, Clear to Ausculation Bilateral, NORMAL BREATHING PATTERN - Cardiovascular Exam Cardiovascular Exam: +S1, +S2 Additional comments: no JVD - GI/Abdominal Exam GI & Abdominal Exam: Soft, Normal Bowel Sounds - Extremities Exam Extremities Exam: Normal Capillary Refill Additional comments: left sided weakness, left arm contracted - Neurological Exam Neurological Exam: Alert, Awake, Oriented x3 - Psychiatric Exam Psychiatric exam: Normal Affect, Normal Mood - Skin Skin Exam: Intact, Normal Color, Warm Additional comments: stage 4 sacral decubitus prior to admission - Additional Findings Additional findings: bed ridden Assessment and Plan - Assessment and Plan (Free Text) Assessment: IMPRESSION: A 77 year old female with history of atrial fibrillation, hypertension,hypercholesterolemia,cerebrovascular accident, non obstructive coronary artery disease ( last cath 2013) history of abdominal aortic dissection, endovascular leak, seizure disorder, history of thrombocytopenia, chronic pain syndrome, history of decubitus ulcers, Chronic active hepatitis C, CVA with left hemiplegia, urinary tract infection ,history of ESBL-producing E. coli, sy catheter, history of pneumonia. Plan: Ordered ECHO to evaluate LV function On ASA 81 mg daily, Catapres 0.3 mg patch daily,Hydralazine 100 mg TID, Lopressor 50 mg BID, Diovan 320 mg daily, Coumadin 0.5 mg daily (low dose due to history of bleeding) Right lower lobe pneumonia- on antibiotics and followed up by Infectious disease Reposition due to sacral decubitus stage 4 Pending culture results Continue current medications Continue current treatment Will follow up Plan and treatment discussed with Dr. Wilkerson
[2018-02-05 08:25] LABS: ANISOCYTOSIS SLIGHT; LYMPHOCYTE 4 % (22.0-35.0); MONOCYTE 4 % (1.0-6.0); MYELOCYTE 2 %; NEUTROPHIL 90 % (50.0-70.0); PLATELET ESTIMATE NORMAL (NORMAL)
[2018-02-05] MEDS: Magnesium Oxide 400 mg Tab UD PO SCH ×2 (10:35→17:32)
[2018-02-05] MEDS: levETIRAcetam 500 mg/5ml UD cups PO SCH ×2 (10:35→17:31)
[2018-02-05] MEDS: Pantoprazole 40 mg EC Tab PO SCH (10:35)
[2018-02-05] MEDS: Azithromycin 500MG/NS 250ml 500 MG/250 ML BAG IVPB SCH (10:36)
--- NOTE | 2018-02-05 15:14 | PN ---
DATE: 02/04/2018 SUBJECTIVE: The patient seems doing better, comfortable, in no distress. No chest pain. No short of breath and she seems doing very well, afebrile. PHYSICAL EXAMINATION: VITAL SIGNS: Temperature 100.7, heart rate 77, blood pressure 138/61, respiration is 20 and saturation is 93% on 3 L. HEAD AND NECK: Normal. No JVD. No thyromegaly. CHEST: Clear, diminished breath sounds. CARDIAC: First sound and second sound normal. ABDOMEN: Soft, nontender. EXTREMITIES: No edema. NEUROLOGIC: The patient respond to calling her name. She opens her eyes. She understands the talk. She is alert and awake and oriented to the person and to the day time. LABORATORY STUDIES: labs have been ordered for tomorrow. Last sodium 128 and her BUN 27, creatinine 0.8. The patient also had an LDL of 56 and procalcitonin is 0.24. The patient also had some consultations. She is seen by Dr. Wilkerson, Dr. Bullard, ID consult and also seen by GI consult, Dr. Galindo and Bariatric consult. IMPRESSION AND PLAN: 1. Community-acquired pneumonia, left lower lobe infiltrates with fever. Continue meropenem, IV antibiotics as per ID consult. 2. Underlying chronic obstructive pulmonary disease, continue nebulizer treatment, Mucomyst seems stable. 3. Hypertension, we will add clonidine 0.1 every six hours p.r.n. Continue clonidine patch. We may increase her clonidine patch to higher standards 0.3 mg every 24 hours for hypertension plus continue Diovan 320, continue Lopressor 50 b.i.d. and we will follow up clinically. 4. Chronic back pain and chronic osteoarthritis. Continue oxycodone p.r.n. 15 mg every 8 hours. 5. Chronic atrial fibrillation, continue Coumadin, risk of bleeding has been explained to the patient. In the past was very high. At this time, we will continue Coumadin as prescribed. We will monitor the case. We will get venous Doppler both legs. 6. Seizure disorder, continue Keppra 500 b.i.d. Seems stable. The patient seems doing okay, otherwise stable. Continue meropenem for pneumonia plus Zithromax 500 IV daily. Albin Forte MD [facility] # [id number]
--- NOTE | 2018-02-05 15:50 | US ---
HISTORY: Leg pain and swelling. Evaluate for DVT PHYSICIAN(S): Pratik Kendrick MD. TECHNIQUE: Duplex sonography and color-flow Doppler with graded compression were used to evaluate the deep venous systems of both lower extremities. FINDINGS: The exam is very limited. The patient was contracted and screening. She was unwilling to cooperate. Only limited images of the left leg were obtained. The visualized deep venous systems of both lower extremities are sonographically normal and compressible. Normal wave forms and augmentation are seen. There is no sonographic evidence for deep venous thrombosis in the visualized segments of both lower extremities. IMPRESSION: No sonographic evidence for deep venous thrombosis in the visualized segments of both lower extremities. Very limited study.
--- NOTE | 2018-02-05 20:02 | PN ---
DATE: 02/05/2018 SUBJECTIVE: The patient is in bed, in no acute distress, was seen early this morning in room 367, bed 2. Overall is unchanged. PHYSICAL EXAMINATION: VITAL SIGNS: Temperature is 99, blood pressure is 150/70, respiratory rate 18, heart rate of 127. HEENT: Unremarkable. NECK: Supple. LUNGS: Have decreased breath sounds. HEART: Normal S1, S2. ABDOMEN: Soft, nontender. LABORATORY EXAMINATION: Reveals a white count of 12,500, hemoglobin of 10, platelets of 135. Chemistry reveals a BUN of 25, creatinine of 0.8 and procalcitonin is 0.25 and influenza is negative. Urine for Legionella antigen is negative. Sacral culture is Staph aureus and left foot culture Staph aureus sensitivity is pending. Review of the orders, the patient is on meropenem and was started on IV Zithromax today. ASSESSMENT AND PLAN: A 77-year-old female was seen early today in 367, bed 2 with sepsis with right lower lobe healthcare-associated pneumonia and left rectus sheath hematoma and acute pancreatitis by history, stage IV decubitus ulcer in a patient with history of extended-spectrum beta-lactamase Escherichia coli and urinary tract infection, atrial fibrillation, cerebrovascular accident, seizures, history of aortic dissection, hypertension, hypercholesterolemia, chronic active hepatitis C on vancomycin, meropenem and Zithromax and vancomycin-intermediate. We will continue the present course, waiting for identification of staff and waiting for sensitivity. Ricardo Burgos MD
[2018-02-06] MEDS: Meropenem IV 1 gm in NS 50 ML IVPB SCH ×4 (05:13→22:10)
--- NOTE | 2018-02-06 05:33 | CP.PCM.PN ---
Subjective - Date & Time of Evaluation Date of Evaluation: 02/06/18 Time of Evaluation: 05:32 - Subjective Subjective: Nurse calls and tells that temperature is 101.4*F. She also states that she needs IV access, going for PICC line in AM. Seen @ bedside. Has no complaints. Medical record was reviewed. She is on antibiotics, septic work up was done, ID netsuite consultant on team. This 77 year old woman was admitted cough, fever , pneumonia. Has PMH of COPD,CVA, left hemiplegia, AAA, anemia, hepatitis C, OA, dementia, carotid stenosis. Objective - Vital Signs/Intake and Output Vital Signs (last 24 hours): Temp Pulse Resp BP Pulse Ox 99.4 F 100 H 18 156/77 H 92 L 02/05/18 16:00 02/05/18 17:33 02/05/18 16:00 02/05/18 17:33 02/05/18 16:00 - Medications Medications: Current Medications Acetylcysteine (Acetylcysteine 20%) 3 ml IH BID [facility] Last Admin: 02/05/18 19:27 Dose: 3 ml Albuterol/Ipratropium (Duoneb 3 Mg/0.5 Mg (3 Ml) Ud) 3 ml IH QID [facility] Last Admin: 02/05/18 19:26 Dose: 3 ml Aspirin (Aspirin Chewable) 81 mg PO DAILY [facility] Last Admin: 02/05/18 10:34 Dose: 81 mg Clonidine HCl (Catapres-Tts3 0.3 Mg/24 Hr) 1 patch TD Q7D@1000 [facility]UDE Clonidine HCl (Catapres) 0.1 mg PO Q6 PRN PRN Reason: systolic bp >170 Last Admin: 02/05/18 07:02 Dose: 0.1 mg Hydralazine HCl (Apresoline) 100 mg PO TID [facility] Last Admin: 02/05/18 17:33 Dose: 100 mg Azithromycin (Zithromax 500mg In Ns) 500 mg in 250 mls @ 167 mls/hr IVPB DAILY [facility] PRN Reason: Protocol Last Admin: 02/05/18 10:36 Dose: 167 mls/hr Meropenem (Merrem Iv 1 Gm Premix) 50 mls @ 100 mls/hr IVPB Q8 [facility]AN CLAUDE PRN Reason: Protocol Last Admin: 02/06/18 05:13 Dose: Not Given Levetiracetam (Keppra) 500 mg PO BID [facility] Last Admin: 02/05/18 17:31 Dose: 500 mg Magnesium Oxide (Mag-Ox) 400 mg PO BID [facility] Last Admin: 02/05/18 17:32 Dose: 400 mg Metoprolol Tartrate (Lopressor) 50 mg PO BRKDIN [facility] Last Admin: 02/05/18 17:33 Dose: 50 mg Mirtazapine (Remeron) 30 mg PO HS [facility] Last Admin: 02/05/18 21:27 Dose: 30 mg Oxycodone HCl (Oxycodone Immediate Release Tab) 15 mg PO Q8H PRN PRN Reason: Pain, severe (8-10) Last Admin: 02/05/18 12:26 Dose: 15 mg Pantoprazole Sodium (Protonix Ec Tab) 40 mg PO DAILY [facility] Last Admin: 02/05/18 10:35 Dose: 40 mg Trazodone HCl (Desyrel) 50 mg PO HS [facility] Last Admin: 02/05/18 21:27 Dose: 50 mg Valsartan (Diovan) 320 mg PO DAILY [facility] Last Admin: 02/05/18 10:34 Dose: 320 mg Warfarin Sodium (Coumadin) 0.5 mg PO 1800 [facility] PRN Reason: Protocol Last Admin: 02/05/18 17:31 Dose: 0.5 mg Zolpidem Tartrate (Ambien) 5 mg PO HS PRN; Protocol PRN Reason: Sleep - Labs Labs: 02/05/18 05:30 02/05/18 05:30 PT 14.5 SECONDS (9.4-12.5) H 02/05/18 05:30 INR 1.26 (0.93-1.08) H 02/05/18 05:30 APTT 29.0 Seconds (25.1-36.5) 02/03/18 23:00 Microbiology Studies 02/03/18 23:31 Blood Culture - Preliminary Blood NO GROWTH AFTER 3 DAYS 02/03/18 23:01 Blood Culture - Preliminary Blood NO GROWTH AFTER 3 DAYS 02/04/18 01:00 Gram Stain - Final Sacral Wound Culture - Final Methicillin Resistant S Aureus Escherichia Coli 02/04/18 01:00 Gram Stain - Final Foot - Left Wound Culture - Final Methicillin Resistant S Aureus 02/04/18 21:05 Urine Culture - Final Urine No Growth (<1,000 CFU/ML) Lab Studies 02/06/18 02/06/18 Range/Units 08:10 08:10 WBC 10.0 (4.5-11.0) 10^3/ul RBC 2.80 L (3.5-6.1) 10^6/uL Hgb 9.1 L (12.0-16.0) g/dL Hct 26.6 L (36.0-48.0) % MCV 95.0 (80.0-105.0) fl MCH 32.5 (25.0-35.0) pg MCHC 34.2 (31.0-37.0) g/dl RDW 12.9 (11.5-14.5) % Plt Count 97 L (120.0-450.0) 10^3/uL MPV 8.7 (7.0-11.0) fl Sodium 142 (132-148) mmol/L Potassium 3.0 L (3.6-5.0) mmol/L Chloride 109 H (98-107) mmol/L Carbon Dioxide 23 (21-33) mmol/L Anion Gap 13 (10-20) BUN 25 H (7-21) mg/dL Creatinine 0.7 (0.7-1.2) mg/dl Est GFR ( Amer) > 60 Est GFR (Non-Af Amer) > 60 Random Glucose 105 (70-110) mg/dL Calcium 8.8 (8.4-10.5) mg/dL Micro Results 02/03/18 23:31 Blood Blood Culture - Preliminary NO GROWTH AFTER 3 DAYS 02/03/18 23:01 Blood Blood Culture - Preliminary NO GROWTH AFTER 3 DAYS 02/04/18 01:00 Sacral Gram Stain - Final 02/04/18 01:00 Sacral Wound Culture - Final Methicillin Resistant S Aureus Escherichia Coli 02/04/18 01:00 Foot - Left Gram Stain - Final 02/04/18 01:00 Foot - Left Wound Culture - Final Methicillin Resistant S Aureus 02/04/18 21:05 Urine Urine Culture - Final No Growth (<1,000 CFU/ML) Most Recent Lab Values WBC 10.0 10^3/ul (4.5-11.0) 02/06/18 08:10 RBC 2.80 10^6/uL (3.5-6.1) L 02/06/18 08:10 Hgb 9.1 g/dL (12.0-16.0) L 02/06/18 08:10 Hct 26.6 % (36.0-48.0) L 02/06/18 08:10 MCV 95.0 fl (80.0-105.0) 02/06/18 08:10 MCH 32.5 pg (25.0-35.0) 02/06/18 08:10 MCHC 34.2 g/dl (31.0-37.0) 02/06/18 08:10 RDW 12.9 % (11.5-14.5) 02/06/18 08:10 Plt Count 97 10^3/uL (120.0-450.0) L 02/06/18 08:10 MPV 8.7 fl (7.0-11.0) 02/06/18 08:10 Gran % 85.9 % (50.0-68.0) H 02/05/18 05:30 Lymph % (Auto) 4.1 % (22.0-35.0) L 02/05/18 05:30 [place] % (Auto) 9.9 % (1.0-6.0) H 02/05/18 05:30 Eos % (Auto) 0.0 % (1.5-5.0) L 02/05/18 05:30 Baso % (Auto) 0.1 % (0.0-3.0) 02/05/18 05:30 Gran # 10.72 (1.4-6.5) H 02/05/18 05:30 Lymph # (Auto) 0.5 (1.2-3.4) L 02/05/18 05:30 [place] # (Auto) 1.2 (0.1-0.6) H 02/05/18 05:30 Eos # (Auto) 0.0 (0.0-0.7) 02/05/18 05:30 Baso # (Auto) 0.01 K/mm3 (0.0-2.0) 02/05/18 05:30 Neutrophils % (Manual) 90 % (50.0-70.0) H 02/05/18 05:30 Lymphocytes % (Manual) 4 % (22.0-35.0) L 02/05/18 05:30 Monocytes % (Manual) 4 % (1.0-6.0) 02/05/18 05:30 Myelocytes % 2 % 02/05/18 05:30 Platelet Evaluation Normal (NORMAL) 02/05/18 05:30 Anisocytosis (manual) Slight 02/05/18 05:30 PT 14.5 SECONDS (9.4-12.5) H 02/05/18 05:30 INR 1.26 (0.93-1.08) H 02/05/18 05:30 APTT 29.0 Seconds (25.1-36.5) 02/03/18 23:00 Sodium 142 mmol/L (132-148) 02/06/18 08:10 Potassium 3.0 mmol/L (3.6-5.0) L 02/06/18 08:10 Chloride 109 mmol/L (98-107) H 02/06/18 08:10 Carbon Dioxide 23 mmol/L (21-33) 02/06/18 08:10 Anion Gap 13 (10-20) 02/06/18 08:10 BUN 25 mg/dL (7-21) H 02/06/18 08:10 Creatinine 0.7 mg/dl (0.7-1.2) 02/06/18 08:10 Est GFR ( Amer) > 60 02/06/18 08:10 Est GFR (Non-Af Amer) > 60 02/06/18 08:10 Random Glucose 105 mg/dL (70-110) 02/06/18 08:10 Hemoglobin A1c 4.1 % (4.2-6.5) L D 02/05/18 05:30 Calcium 8.8 mg/dL (8.4-10.5) 02/06/18 08:10 Phosphorus 3.6 mg/dL (2.5-4.5) 02/05/18 05:30 Magnesium 2.5 mg/dL (1.7-2.2) H 02/05/18 05:30 Total Bilirubin 1.0 mg/dL (0.2-1.3) 02/05/18 05:30 AST 34 U/L (14-36) 02/05/18 05:30 ALT 27 U/L (7-56) 02/05/18 05:30 Alkaline Phosphatase 118 U/L (38-126) 02/05/18 05:30 Total Protein 7.1 g/dL (5.8-8.3) 02/05/18 05:30 Albumin 3.5 g/dL (3.0-4.8) 02/05/18 05:30 Globulin 3.5 gm/dL 02/05/18 05:30 Albumin/Globulin Ratio 1.0 (1.1-1.8) L 02/05/18 05:30 Triglycerides 106 mg/dL (35-160) 02/05/18 05:30 Cholesterol 122 mg/dL (130-200) L 02/05/18 05:30 LDL Cholesterol Direct 56 mg/dL (0-129) 02/05/18 05:30 HDL Cholesterol 32 mg/dL (29-60) 02/05/18 05:30 Procalcitonin 0.24 NG/ML (0.19-0.49) 02/04/18 13:00 TSH 3rd Generation 1.47 mIU/mL (0.46-4.68) 02/05/18 05:30 Influenza Typ A,B (EIA) Negative for flu a/b (NEGATIVE) 02/04/18 13:27 Ur L.pneumophila Ag Negative (NEGATIVE) 02/05/18 08:00 - Constitutional Appears: Well, No Acute Distress - Head Exam Head Exam: ATRAUMATIC, NORMAL INSPECTION, NORMOCEPHALIC - Eye Exam Eye Exam: Normal appearance - ENT Exam ENT Exam: Normal External Ear Exam - Neck Exam Neck Exam: Normal Inspection - Respiratory Exam Respiratory Exam: NORMAL BREATHING PATTERN - Cardiovascular Exam Cardiovascular Exam: absent: JVD - GI/Abdominal Exam GI & Abdominal Exam: absent: Distended - Rectal Exam Rectal Exam: Deferred - Exam Additional comments: Deferred. - Extremities Exam Extremities Exam: Normal Inspection - Back Exam Back Exam: NORMAL INSPECTION - Neurological Exam Neurological Exam: Alert, Awake - Psychiatric Exam Psychiatric exam: Normal Affect, Normal Mood - Skin Skin Exam: Normal Color Assessment and Plan - Assessment and Plan (Free Text) Assessment: Fever. Poor venous access. PNA. COPD. Anemia History hepatitis C. Dementia. Plan: # 20 angiocath placed in left hand dorsum. Tylenol 650 mg PO Q4H prn temp > 100.4*F ordered. Continue present management.
--- NOTE | 2018-02-06 07:15 | CP.PCM.PN ---
Subjective - Date & Time of Evaluation Date of Evaluation: 02/06/18 Time of Evaluation: 06:25 - Subjective Subjective: In bed, Semifowlers position, denies shortness of breath, denies chest pain, awake, feels okay Reason for consult and follow up: Cardiac evaluation, history of non obstructive coronary artery disease, Atrial fibrillation, cerebrovascular disease with left side hemiplegia, hypertension, hyperlcholesterolemia, abdominal aortic aneurysm. Seen and examined by me and Dr. Wilkerson Objective - Vital Signs/Intake and Output Vital Signs (last 24 hours): Temp Pulse Resp BP Pulse Ox 101.4 F H 100 H 18 156/77 H 92 L 02/06/18 05:57 02/05/18 17:33 02/05/18 16:00 02/05/18 17:33 02/05/18 16:00 Intake and Output: 02/06/18 02/06/18 06:59 18:59 Intake Total 120 Output Total 300 Balance -180 - Medications Medications: Current Medications Acetaminophen (Tylenol 325mg Tab) 650 mg PO Q4 PRN PRN Reason: Fever >100.4 F Last Admin: 02/06/18 05:57 Dose: 650 mg Acetylcysteine (Acetylcysteine 20%) 3 ml IH BID [facility] Last Admin: 02/05/18 19:27 Dose: 3 ml Albuterol/Ipratropium (Duoneb 3 Mg/0.5 Mg (3 Ml) Ud) 3 ml IH QID [facility] Last Admin: 02/05/18 19:26 Dose: 3 ml Aspirin (Aspirin Chewable) 81 mg PO DAILY [facility] Last Admin: 02/05/18 10:34 Dose: 81 mg Clonidine HCl (Catapres-Tts3 0.3 Mg/24 Hr) 1 patch TD Q7D@1000 [facility] Clonidine HCl (Catapres) 0.1 mg PO Q6 PRN PRN Reason: systolic bp >170 Last Admin: 02/05/18 07:02 Dose: 0.1 mg Hydralazine HCl (Apresoline) 100 mg PO TID [facility] Last Admin: 02/05/18 17:33 Dose: 100 mg Azithromycin (Zithromax 500mg In Ns) 500 mg in 250 mls @ 167 mls/hr IVPB DAILY [facility] PRN Reason: Protocol Last Admin: 02/05/18 10:36 Dose: 167 mls/hr Meropenem (Merrem Iv 1 Gm Premix) 50 mls @ 100 mls/hr IVPB Q8 [facility] PRN Reason: Protocol Last Admin: 02/06/18 06:00 Dose: 100 mls/hr Levetiracetam (Keppra) 500 mg PO BID [facility] Last Admin: 02/05/18 17:31 Dose: 500 mg Magnesium Oxide (Mag-Ox) 400 mg PO BID [facility] Last Admin: 02/05/18 17:32 Dose: 400 mg Metoprolol Tartrate (Lopressor) 50 mg PO BRKDIN [facility] Last Admin: 02/05/18 17:33 Dose: 50 mg Mirtazapine (Remeron) 30 mg PO HS [facility] Last Admin: 02/05/18 21:27 Dose: 30 mg Oxycodone HCl (Oxycodone Immediate Release Tab) 15 mg PO Q8H PRN PRN Reason: Pain, severe (8-10) Last Admin: 02/05/18 12:26 Dose: 15 mg Pantoprazole Sodium (Protonix Ec Tab) 40 mg PO DAILY [facility] Last Admin: 02/05/18 10:35 Dose: 40 mg Trazodone HCl (Desyrel) 50 mg PO HS [facility] Last Admin: 02/05/18 21:27 Dose: 50 mg Valsartan (Diovan) 320 mg PO DAILY [facility] Last Admin: 02/05/18 10:34 Dose: 320 mg Warfarin Sodium (Coumadin) 0.5 mg PO 1800 [facility] PRN Reason: Protocol Last Admin: 02/05/18 17:31 Dose: 0.5 mg Zolpidem Tartrate (Ambien) 5 mg PO HS PRN; Protocol PRN Reason: Sleep - Labs Labs: 02/05/18 05:30 02/05/18 05:30 PT 14.5 SECONDS (9.4-12.5) H 02/05/18 05:30 INR 1.26 (0.93-1.08) H 02/05/18 05:30 APTT 29.0 Seconds (25.1-36.5) 02/03/18 23:00 - Constitutional Appears: No Acute Distress, Cachectic - Eye Exam Eye Exam: Normal appearance - ENT Exam ENT Exam: Mucous Membranes Moist - Neck Exam Neck Exam: Normal Inspection - Respiratory Exam Respiratory Exam: Decreased Breath Sounds, NORMAL BREATHING PATTERN - Cardiovascular Exam Cardiovascular Exam: REGULAR RHYTHM, +S1, +S2 - GI/Abdominal Exam GI & Abdominal Exam: Soft, Normal Bowel Sounds - Exam Additional comments: sy catheter - Extremities Exam Extremities Exam: Normal Capillary Refill Additional comments: left side hemiplegia, petechia on both arms due to IV stick - Neurological Exam Neurological Exam: Alert, Awake, Oriented x3 - Psychiatric Exam Psychiatric exam: Normal Affect, Normal Mood - Skin Skin Exam: Intact, Normal Color Additional comments: sacral decubitus prior to admission Assessment and Plan - Assessment and Plan (Free Text) Assessment: IMPRESSION: A 77 year old female with history of atrial fibrillation, hypertension,hypercholesterolemia,cerebrovascular accident, non obstructive coronary artery disease ( last cath 2013) history of abdominal aortic dissection, endovascular leak, seizure disorder, history of thrombocytopenia, chronic pain syndrome, history of decubitus ulcers, Chronic active hepatitis C, CVA with left hemiplegia, urinary tract infection ,history of ESBL-producing E. coli, sy catheter, history of pneumonia. Plan: Plan: Right lower lobe pneumonia- on IV antibiotics and followed up by Infectious disease Stable cardiac status BP and heart rate stable On ASA 81 mg daily, Catapres 0.3 mg patch daily,Hydralazine 100 mg TID, Lopressor 50 mg BID, Diovan 320 mg daily, Coumadin 0.5 mg daily (low dose due to history of bleeding) Feeling better Repositioning to side due to sacral decubitus potassium level today 3.4- will cover with KCl 20 meq po x 1 dose Continue current medications Continue current treatment Will follow up Plan and treatment discussed with Dr. Wilkerson
[2018-02-06] MEDS ORDERED: Potassium Chloride 20 mEq/15 ml LIQ UD PO STA (07:23)
[2018-02-06] MEDS ORDERED: Potassium Chloride 20 mEq ER Tab PO ONE (07:36)
[2018-02-06 08:22] LABS: HEMOGLOBIN 9.1 g/dL (12.0-16.0); MEAN CORPUSCULAR HEMOGLOBIN 32.5 pg (25.0-35.0); MEAN CORPUSCULAR HGB CONC 34.2 g/dl (31.0-37.0); MEAN PLATELET VOLUME 8.7 fl (7.0-11.0); RBC 2.8 10^6/uL (3.5-6.1); RED CELL DISTRIBUTION WIDTH 12.9 % (11.5-14.5)
[2018-02-06 08:37] LABS: BLOOD UREA NITROGEN 25 mg/dL (7-21); CALCIUM 8.8 mg/dL (8.4-10.5); GFR AFRICAN-AMERICAN > 60; GFR NON-AFRICAN AMERICAN > 60
[2018-02-06] MEDS: Albuterol-Ipratrop 3 mg / 0.5 (3 ml) UD IH SCH ×3 (09:06→20:29)
[2018-02-06] MEDS: Azithromycin 500MG/NS 250ml 500 MG/250 ML BAG IVPB SCH (09:07)
[2018-02-06] MEDS: Acetylcysteine 20% Inhal Soln (4ml) IH SCH ×2 (09:07→20:29)
[2018-02-06] MEDS: levETIRAcetam 500 mg/5ml UD cups PO SCH ×2 (09:08→17:30)
[2018-02-06] MEDS: Pantoprazole 40 mg EC Tab PO SCH (09:08)
[2018-02-06] MEDS: Magnesium Oxide 400 mg Tab UD PO SCH ×2 (09:08→17:33)
--- NOTE | 2018-02-06 10:12 | CON ---
DATE: 02/05/2018 PULMONARY CONSULTATION REFERRING PHYSICIAN: Albin Forte MD. REASON FOR CONSULTATION Cough, shortness of breath. HISTORY OF PRESENT ILLNESS This is a 77-year-old female, well known to me from previous admission, has a known history of chronic obstructive lung disease, history of stroke with hemiplegia, anemia, thrombocytopenia, history of hepatitis C, aortic aneurysm, carotid stenosis, dementia, chronic pain syndrome, arthritis, bedridden and atrial fibrillation, brought in by daughter to emergency room with cough, shortness of breath and fever, up to 101. There is also some issue with her Bush catheter. Has some cough. No nausea. No vomiting. PAST MEDICAL HISTORY: As per history of present illness. ALLERGIES: TO PENICILLIN. SOCIAL HISTORY: Lives at home with her daughter. No active smoking. No alcohol use. FAMILY HISTORY: No significant cardiopulmonary disease reported. MEDICATIONS: She is on Mucomyst 20% inhaled twice a day, Ambien 5 mg at bedtime p.r.n., hydralazine 100 mg three times a day, aspirin 81 mg daily, clonidine 0.1 mg every 6 hours p.r.n., Coumadin 0.5 mg daily, trazodone 50 mg at night, valsartan 320 mg daily, albuterol/Atrovent nebulizer four times daily, Keppra 500 mg twice a day, metoprolol tartrate 50 mg twice a day, magnesium oxide 400 mg twice a day, meropenem 1 g every 8 hours, oxycodone immediate release 15 mg every 8 hours, Protonix 40 mg daily, Remeron 30 mg at bedtime and Zithromax 500 mg daily. REVIEW OF SYSTEMS: No headache. Not much rhinitis. Has some mild cough and shortness of breath. No chest pain. No nausea. No vomiting. No abdominal pain. No leg pain or leg swelling. PHYSICAL EXAMINATION: GENERAL: Lying in the bed. VITAL SIGNS: T max 101, temp is 99, heart rate is 100, respiratory rate is 18, blood pressure 156/77, pulse ox 92% on nasal cannula. HEENT: Small oral cavity. Crowded airway. NECK: Supple. No JVD. LUNGS: Have a fair airflow with few rhonchi. HEART: S1 and S2. ABDOMEN: Soft, nontender, nondistended. EXTREMITIES: There is no edema. NEUROLOGIC: Awake, alert. Follows simple command. LABORATORY DATA: Shows hemoglobin 10.1, hematocrit 29.4, WBC 12.5, platelet is 135. INR is 1.26. Sodium 137, potassium 3.5, chloride 103, bicarbonate 20, BUN 25, creatinine 0.8, glucose 100, hemoglobin A1c 4.1, calcium 8.8, phosphorus 3.6 and magnesium 2.5. AST 34, ALT 27, alk phos is 118. Albumin is 3.5. Cholesterol 122. Procalcitonin 0.24. TSH of 1.47. Laboratory data shows influenza A and B is negative and also Legionella pneumophila antigen is negative. Microbiology: Sacral wound and foot wound has a staph aureus. Blood culture is negative. Echocardiogram final report is pending. Chest x-ray done in the ER shows infiltrate in the right lung base. IMPRESSION AND PLAN: Chronic obstructive lung disease, probably has a sleep apnea syndrome, right lower lobe, probably atelectasis; has a sacral wound, urinary tract infection, history of hypertension, osteoarthritis and atrial fibrillation. Pulmonary point of view, doing okay. Keep head at 45 degrees. Aspiration precaution. Gastric prophylaxis. May have sleep apnea syndrome, refusing to use continuous positive airway pressure/bilevel positive airway pressure. Careful with sedation. Thank you and we will follow up with you. Anushka Barreto MD
--- NOTE | 2018-02-06 13:35 | CP.PCM.PN ---
Subjective - Date & Time of Evaluation Date of Evaluation: 02/06/18 Time of Evaluation: 11:10 - Subjective Subjective: Comfortable in bed, no fevers, not in distress. Objective - Vital Signs/Intake and Output Vital Signs (last 24 hours): Temp Pulse Resp BP Pulse Ox 98.8 F 82 19 160/74 H 95 02/06/18 08:45 02/06/18 09:08 02/06/18 08:45 02/06/18 09:08 02/06/18 08:10 Intake and Output: 02/06/18 02/06/18 06:59 18:59 Intake Total 120 Output Total 300 Balance -180 - Medications Medications: Current Medications Acetaminophen (Tylenol 325mg Tab) 650 mg PO Q4 PRN PRN Reason: Fever >100.4 F Last Admin: 02/06/18 05:57 Dose: 650 mg Acetylcysteine (Acetylcysteine 20%) 3 ml IH BID [facility] Last Admin: 02/06/18 09:07 Dose: 3 ml Albuterol/Ipratropium (Duoneb 3 Mg/0.5 Mg (3 Ml) Ud) 3 ml IH QID [facility] Last Admin: 02/06/18 09:06 Dose: 3 ml Aspirin (Aspirin Chewable) 81 mg PO DAILY [facility] Last Admin: 02/06/18 09:08 Dose: 81 mg Clonidine HCl (Catapres-Tts3 0.3 Mg/24 Hr) 1 patch TD Q7D@1000 [facility] Clonidine HCl (Catapres) 0.1 mg PO Q6 PRN PRN Reason: systolic bp >170 Last Admin: 02/05/18 07:02 Dose: 0.1 mg Hydralazine HCl (Apresoline) 100 mg PO TID [facility] Last Admin: 02/06/18 09:08 Dose: 100 mg Azithromycin (Zithromax 500mg In Ns) 500 mg in 250 mls @ 167 mls/hr IVPB DAILY [facility] PRN Reason: Protocol Last Admin: 02/06/18 09:07 Dose: 167 mls/hr Meropenem (Merrem Iv 1 Gm Premix) 50 mls @ 100 mls/hr IVPB Q8 [facility] PRN Reason: Protocol Last Admin: 02/06/18 06:00 Dose: 100 mls/hr Levetiracetam (Keppra) 500 mg PO BID [facility] Last Admin: 02/06/18 09:08 Dose: 500 mg Magnesium Oxide (Mag-Ox) 400 mg PO BID [facility] Last Admin: 02/06/18 09:08 Dose: 400 mg Metoprolol Tartrate (Lopressor) 50 mg PO BRKDIN [facility] Last Admin: 02/06/18 09:11 Dose: 50 mg Mirtazapine (Remeron) 30 mg PO HS [facility] Last Admin: 02/05/18 21:27 Dose: 30 mg Oxycodone HCl (Oxycodone Immediate Release Tab) 15 mg PO Q8H PRN PRN Reason: Pain, severe (8-10) Last Admin: 02/05/18 12:26 Dose: 15 mg Pantoprazole Sodium (Protonix Ec Tab) 40 mg PO DAILY [facility] Last Admin: 02/06/18 09:08 Dose: 40 mg Trazodone HCl (Desyrel) 50 mg PO HS [facility] Last Admin: 02/05/18 21:27 Dose: 50 mg Valsartan (Diovan) 320 mg PO DAILY [facility] Last Admin: 02/06/18 09:08 Dose: 320 mg Warfarin Sodium (Coumadin) 0.5 mg PO 1800 [facility] PRN Reason: Protocol Last Admin: 02/05/18 17:31 Dose: 0.5 mg Zolpidem Tartrate (Ambien) 5 mg PO HS PRN; Protocol PRN Reason: Sleep - Labs Labs: 02/06/18 08:10 02/06/18 08:10 PT 14.5 SECONDS (9.4-12.5) H 02/05/18 05:30 INR 1.26 (0.93-1.08) H 02/05/18 05:30 APTT 29.0 Seconds (25.1-36.5) 02/03/18 23:00 - Constitutional Appears: Chronically Ill - Head Exam Head Exam: NORMAL INSPECTION - Neck Exam Neck Exam: absent: Meningismus - Respiratory Exam Respiratory Exam: Decreased Breath Sounds - Cardiovascular Exam Cardiovascular Exam: +S1, +S2 - GI/Abdominal Exam GI & Abdominal Exam: Soft. absent: Tenderness - Extremities Exam Additional comments: left foot with dressings in place Assessment and Plan - Assessment and Plan (Free Text) Plan: Assessment Sepsis due to right lower lobe HCAP consider decubitus ulcer and left heel ulcer infection with MRSA history of left rectus sheath hematoma history of acute pancreatitis Stage 4 decubitus ulcer history of right lower lobe healthcare-associated pneumonia history of ESBL E. coli and Enterococcus UTI history of ESBL E. coli UTI atrial fibrillation cerebrovascular accident history of aortic dissection seizure disorder history of thrombocytopenia HTN hypercholesterolemia chronic pain syndrome history of decubitus ulcers chronic active hepatitis C Plan continue IV Vancomycin, Merrem and Zithromax day 3 to complete at least 7 days of therapy will continue to monitor clinically
--- NOTE | 2018-02-06 14:28 | PN ---
DATE: 02/05/2018 SUBJECTIVE: The patient seems comfortable. Problem with IV access. Otherwise, she is not in any respiratory distress. PHYSICAL EXAMINATION: VITAL SIGNS: Temperature 99.4, heart rate 100, blood pressure 156/77, respirations 18, and saturating 92%. HEAD AND NECK: Normal. No JVD. No thyromegaly. CHEST: Clear. Good air entry. CARDIAC: First sound and second sound normal. ABDOMEN: Soft and nontender. EXTREMITIES: No edema. NEUROLOGIC: The patient has left hemiplegia, she is generally weak. She has both knee contractures and are moving, and she is awake and alert. LABORATORY DATA: Shows white count went up to 12.5, hemoglobin 10.1, hematocrit 29.4, platelet is 135. Chemistry shows sodium 137, potassium 3.5, chloride 103, bicarb 20, BUN 25, creatinine 0.8, magnesium 2.5, phosphorus 3.6 normal, calcium 8.8 normal. Hemoglobin A1c 4.1. Liver function test is normal. IMPRESSION AND PLAN: 1. Left lower lobe pneumonia. The patient does have ability to tolerate Ensure as she was doing at home. However, has been explained before to the family about the risk of aspiration pneumonia and they refused percutaneous endoscopic gastrostomy tubing. At this time, we will continue palliative care and we will follow up. 2. Continue IV antibiotic. The patient has IV access problem, get Dr. Pratik Kendrick for IV access. 3. Underlying chronic obstructive pulmonary disease. Continue nebulizer treatment. Dr. Barreto, pulmonary consult, on the case. 4. Hypertension. Continue current blood pressure medicine. The patient is getting metoprolol 50 mg b.i.d., Diovan 320 once a day, hydralazine 100 t.i.d., and we will consider adding Norvasc. We will see how the blood pressure does. 5. History of paroxysmal atrial fibrillation. The patient has a history of significant bleeding that would make her risk of dying more than risk of atrial fibrillation. At this time, we will continue aspirin 81, Coumadin 0.5 mg daily. The patient has negative venous Doppler of both legs and we will continue current therapy. 6. Poor appetite, continue Remeron 30 mg at bedtime. Continue Protonix 40 mg daily. Encourage p.o. intake as per family. 7. Pneumonia. As I mentioned, the patient is getting meropenem 1 g IV every 8 hours. She is also getting nebulizer treatment and she was seen by ID consult. 8. History of seizure disorder, cerebrovascular accident, aortic aneurysm, recurrent hepatitis C, thrombocytopenia. Continue current therapy. Follow up clinically. Albin Forte MD
--- NOTE | 2018-02-06 14:45 | CARD ---
APPROVED REPORT EKG Measurement Heart [id number] <Conclusion> Sinus rhythm with 1st degree AV block Inf.Wall NC-Old.
--- NOTE | 2018-02-06 16:54 | RAD ---
HISTORY: PICC line placement. COMPARISON: No prior. FINDINGS: LUNGS: Persistent right lower lobe infiltrate. PLEURA: No significant pleural effusion identified, no pneumothorax apparent. CARDIOVASCULAR: No radiographic findings to suggest acute or significant cardiovascular disease. PICC line in satisfactory position inserted via right upper extremity approach. The tip is in the SVC approximately 4 cm from the cavoatrial junction. Stable position of thoracic aortic stent graft. OSSEOUS STRUCTURES: No significant abnormalities. VISUALIZED UPPER ABDOMEN: Normal. OTHER FINDINGS: None. IMPRESSION: Satisfactory position of recently placed PICC line. No pneumothorax. Otherwise no interval change
[2018-02-06] MEDS ORDERED: Amino/Dext 5/20 1,000 ML IV SCH (17:00)
[2018-02-06] MEDS: Vancomycin 1gm in NS 250ml 1 GM/250 ML BAG IVPB SCH (17:30)
--- NOTE | 2018-02-06 18:55 | CARD ---
APPROVED REPORT EXAM: Two-dimensional and M-mode echocardiogram with Doppler and color Doppler. INDICATION PAF/MR/AR 2D DIMENSIONS Left Atrium (2D)4.3 (1.6-4.0cm)IVSd1.2 (0.7-1.1cm) LVDd3.3 (3.9-5.9cm)PWd1.3 (0.7-1.1cm) LVDs2.4 (2.5-4.0cm)FS (%) 27.7 % LVEF (%)55.2 (>50%) M-Mode DIMENSIONS Aortic Root3.50 (2.2-3.7cm)Aortic Cusp Exc.1.50 (1.5-2.0cm) Aortic Valve AoV Peak Wkzavhof816.0cm/Efrain Peak GR.10mmHgLVOT Peak Yltfoubw928.0cm/s LVOT VTI19.60cm Mitral Valve E/A ratio0.0 TDI E/Lateral E'0.0E/Medial E'0.0 Pulmonary Valve PV Peak Clzjispu277.0cm/sPV Peak Grad.9mmHg Tricuspid Valve TR Peak Jkcblcyp196gt/sRAP [id number] Peak Gr.35mmHg [id number] LEFT VENTRICLE The left ventricle is normal size. There is mild concentric left ventricular hypertrophy. The left ventricular function is normal.EF-55% There is normal LV segmental wall motion. Transmitral Doppler flow pattern is Grade III-reversible restrictive diastolic dysfunction. No left ventricle thrombus noted on this study. There is no ventricular septal defect visualized. There is no left ventricular aneurysm. There is no mass noted in the left ventricle. RIGHT VENTRICLE The right ventricle is normal size. There is normal right ventricular wall thickness. The right ventricular systolic function is normal. ATRIA The left atrium is mildly dilated. The right atrium size is normal. The interatrial septum is intact with no evidence for an atrial septal defect. AORTIC VALVE The aortic valve is calcified but opens well. There is trace aortic regurgitation. AorticSclerosis Vs Mild There is no aortic valvular vegetation. MITRAL VALVE The mitral valve is thickened but opens well. Mitral regurgitation is trace. There is no mitral valve stenosis. There is no evidence of mitral valve prolapse. TRICUSPID VALVE The tricuspid valve leaflets are thickened , but open well. There is trace to mild tricuspid regurgitation.RVSP-45 mmof hg. There is no tricuspid valve stenosis. There is no tricuspid valve prolapse or vegetation. PULMONIC VALVE The pulmonic valve is not well visualized. GREAT VESSELS The aortic root is normal in size. The ascending aorta is normal in size. The pulmonary artery is normal. The IVC is normal in size and collapses >50% with inspiration. PERICARDIAL EFFUSION There is no pleural effusion. There is no pericardial effusion. <Conclusion> TDS: Difficult Study: poor Sonic [place]. The left ventricle is normal size. There is mild concentric left ventricular hypertrophy. The left ventricular function is normal.EF-55% There is trace aortic regurgitation. AorticSclerosis Vs Mild Mitral regurgitation is trace. There is trace to mild tricuspid regurgitation.RVSP-45 mmof hg. The IVC is normal in size and collapses >50% with inspiration. There is no pericardial effusion.
--- NOTE | 2018-02-06 22:41 | PN ---
DATE: 02/06/2018 REFERRING PHYSICIAN: Albin Forte MD SUBJECTIVE: The patient is lying in the bed at 45 degrees, sleepy, arousable. No headache, no rhinitis. Mild cough. No nausea, no vomiting. No diarrhea. No leg swelling. OBJECTIVE: GENERAL: In no acute distress. VITAL SIGNS: Temperature is 98, T max 101.4, heart rate is 82, respiratory rate is 20, blood pressure 160/70, pulse ox 95% on 2 liters nasal cannula. HEENT: Moist mucous membranes. Small oral cavity. Crowded airway. NECK: Supple. No JVD. LUNGS: Have fair airflow with rhonchi. HEART: S1 and S2. ABDOMEN: Soft, nontender, nondistended. EXTREMITIES: Multiple pressure ulcers from fracture of the lower extremities. NEUROLOGICAL: Sleepy, arousable. Follows simple command. MEDICATIONS: She is on Mucomyst inhaled twice a day, Ambien 5 mg at bedtime p.r.n., hydralazine 100 mg three times a day, aspirin 81 mg daily, Catapres 0.1 mg every 6 hours p.r.n., clonidine 0.3 mg weekly, also getting IV, Coumadin 0.5 mg given yesterday, trazodone 50 mg at bedtime, Diovan 320 mg daily, DuoNeb four times daily, Keppra 500 mg twice a day, metoprolol tartrate 50 mg twice a day, magnesium oxide 400 mg twice a day, meropenem 1 g every 8 hours. OxyContin immediate release 10 mg every 8 hours p.r.n., also getting IV fluid with potassium 100 mL per hour, Protonix 40 mg daily, Remeron 30 mg at bedtime, Tylenol p.r.n., vancomycin 1 g IV every 12 hours, Zithromax 500 mg daily. LABORATORY DATA: Shows hemoglobin 9.1, hematocrit 26.6, WBC 10, platelet is 97. Sodium 142, potassium 3, chloride 109, bicarbonate 23, BUN 25, creatinine 0.7, glucose is 105, calcium is 8.8. Microbiology: Sacral ulcer has MRSA and E-coli. Urine culture is negative. Blood culture is negative. Chest x-ray done today. PICC line is okay, otherwise unremarkable. X-ray, no changes. IMPRESSION AND PLAN: Chronic obstructive lung disease, may have sleep apnea syndrome, right lower lobe atelectasis, sacral ulcer, urinary tract infection, hypertension, osteoarthritis, atrial fibrillation, multiple pressure ulcers, sepsis with fever up to 101. Seen by Infectious Diseases on broad-spectrum antibiotics covering gram-negative and gram-positive. May need surgical consult to evaluate the ulcers. Pressure ulcer precaution. Aspiration precaution. Thank you and we will follow with you. Anushka Barreto MD
[2018-02-07] MEDS: Vancomycin 1gm in NS 250ml 1 GM/250 ML BAG IVPB SCH ×2 (01:51→13:17)
--- NOTE | 2018-02-07 05:13 | CON ---
DATE: HISTORY OF PRESENT ILLNESS: A 77-year-old female, well-known to the [facility] wound care team, seen at bedside for consultation, evaluation and management of recent left heel ulceration with MRSA on culture and sensitivity. Patient's daughter does not know how long the wound has been there and was unaware that it was even there at all. Patient was brought into the [facility] ER due to problems associated with her urinary catheter. PAST MEDICAL HISTORY: Patient's medical history is significant for chronic active hepatitis C, CVA with left hemiplegia, history of ESBL producing E. coli, atrial fibrillation, peripheral vascular disease, cardiovascular accident, aortic dissection, epilepsy, hypertension, hypercholesterolemia, thrombocytopenia and chronic pain syndrome. PAST SURGICAL HISTORY: Includes cardiac catheterization and bilateral breast augmentation. SOCIAL HISTORY: Former smoker. Denies illicit drug use. Denies alcohol abuse. HOME MEDICATIONS: Include Ambien, Coumadin, Diovan, , oxycodone, Remeron, Lopressor, Keppra, Catapres and aspirin 81 mg. ALLERGIES: PATIENT IS ALLERGIC TO PENICILLIN. PHYSICAL EXAMINATION: VITAL SIGNS: Reveal temperature of 98.8, pulse rate of 82, blood pressure of 160/74, respiratory rate of 19. EXTREMITIES: Nonpalpable pedal pulses noted bilaterally. Absent pedal hair growth noted bilaterally. Lower extremity skin presents thin, shiny and discolored bilaterally. Capillary filling time is delayed x10. Patient is unable to respond to sharp-dull stimuli. All nail plates are noted to be elongated, dystrophic, discolored with subungual fungal debris. There is a superficial non-stageable ulceration on the left heel. Base of the ulcer is primarily granular. There is noted to be minimal serous drainage. The wound does not probe to tendon or bone. There is no purulence to suggest underlying abscess formation. The area is void of any localized or ascending cellulitis. LABORATORY DATA: Reveal white count of 10, down from 12.5 yesterday; hemoglobin of 9.1, hematocrit of 26.6, platelet count of 97. Microbiology report of the left foot taken on 02/04/2018 reveals MRSA growth. There is no x-ray report. ASSESSMENT: Non-stageable superficial left heel ulceration with methicillin-resistant Staphylococcus aureus growth. PLAN: Patient's wound was cleansed with normal sterile saline. We will apply Bactroban and a dry sterile dressing to the left heel. We will order a new foam Multi Podus boots as the old ones are worn out, and in need of replacement. We will order x-rays to rule out any underlying osseous deformity or osteomyelitis. Infectious Disease note was read and appreciated. We will continue with IV antibiotics as per Infectious Disease. Patient will be seen and followed daily. Richard Barger DPM
[2018-02-07 05:25] LABS: ALT/SGPT 30 U/L (7-56); AST/SGOT 35 U/L (14-36); BLOOD UREA NITROGEN 22 mg/dL (7-21); CALCIUM 8.5 mg/dL (8.4-10.5); GFR AFRICAN-AMERICAN > 60; GFR NON-AFRICAN AMERICAN > 60
[2018-02-07 05:29] LABS: HEMOGLOBIN 8.8 g/dL (12.0-16.0); MEAN CELL VOLUME 96.7 fl (80.0-105.0); MEAN CORPUSCULAR HEMOGLOBIN 31.9 pg (25.0-35.0); MEAN PLATELET VOLUME 8.9 fl (7.0-11.0); RBC 2.76 10^6/uL (3.5-6.1); WHITE BLOOD COUNT 5.9 10^3/ul (4.5-11.0)
[2018-02-07] MEDS: Meropenem IV 1 gm in NS 50 ML IVPB SCH ×3 (05:47→22:16)
[2018-02-07 05:51] LABS: PROTHROMBIN TIME 14.6 SECONDS (9.4-12.5)
[2018-02-07 05:52] LABS: INR 1.27 (0.93-1.08)
--- NOTE | 2018-02-07 07:34 | CP.PCM.PN ---
Subjective - Date & Time of Evaluation Date of Evaluation: 02/07/18 Time of Evaluation: 06:30 - Subjective Subjective: Denies shortness of breath, denies chest pain, comfortable, awake Reason for consult and follow up: Cardiac evaluation, history of non obstructive coronary artery disease, Atrial fibrillation, cerebrovascular disease with left side hemiplegia, hypertension, hyperlcholesterolemia, abdominal aortic aneurysm. Seen and examined by me and Dr. Wilkerson Objective - Vital Signs/Intake and Output Vital Signs (last 24 hours): Temp Pulse Resp BP Pulse Ox 100 F H 80 20 158/74 H 96 02/06/18 16:00 02/06/18 16:00 02/06/18 16:00 02/06/18 16:00 02/06/18 16:00 Intake and Output: 02/07/18 02/07/18 06:59 18:59 Intake Total 720 Output Total 200 Balance 520 - Medications Medications: Current Medications Acetaminophen (Tylenol 325mg Tab) 650 mg PO Q4 PRN PRN Reason: Fever >100.4 F Last Admin: 02/06/18 05:57 Dose: 650 mg Acetylcysteine (Acetylcysteine 20%) 3 ml IH BID [facility] Last Admin: 02/06/18 20:29 Dose: 3 ml Albuterol/Ipratropium (Duoneb 3 Mg/0.5 Mg (3 Ml) Ud) 3 ml IH QID [facility] Last Admin: 02/06/18 20:29 Dose: 3 ml Aspirin (Aspirin Chewable) 81 mg PO DAILY [facility] Last Admin: 02/06/18 09:08 Dose: 81 mg Clonidine HCl (Catapres-Tts3 0.3 Mg/24 Hr) 1 patch TD Q7D@1000 [facility] Clonidine HCl (Catapres) 0.1 mg PO Q6 PRN PRN Reason: systolic bp >170 Last Admin: 02/05/18 07:02 Dose: 0.1 mg Hydralazine HCl (Apresoline) 100 mg PO TID [facility] Last Admin: 02/06/18 17:33 Dose: 100 mg Azithromycin (Zithromax 500mg In Ns) 500 mg in 250 mls @ 167 mls/hr IVPB DAILY [facility] PRN Reason: Protocol Last Admin: 02/06/18 09:07 Dose: 167 mls/hr Meropenem (Merrem Iv 1 Gm Premix) 50 mls @ 100 mls/hr IVPB Q8 [facility] PRN Reason: Protocol Last Admin: 02/07/18 05:47 Dose: 100 mls/hr Vancomycin HCl (Vancomycin 1gm) 1 gm in 250 mls @ 167 mls/hr IVPB Q12H [facility] PRN Reason: Protocol Last Admin: 02/07/18 01:51 Dose: 167 mls/hr Amino Acids (Clinimix 5/20 % (1000 Ml)) 1,000 mls @ 42 mls/hr IV .[id number] [facility] Stop: 02/10/18 17:25 Levetiracetam (Keppra) 500 mg PO BID [facility] Last Admin: 02/06/18 17:30 Dose: 500 mg Magnesium Oxide (Mag-Ox) 400 mg PO BID [facility] Last Admin: 02/06/18 17:33 Dose: 400 mg Metoprolol Tartrate (Lopressor) 50 mg PO BRKDIN [facility] Last Admin: 02/06/18 17:34 Dose: 50 mg Mirtazapine (Remeron) 30 mg PO HS [facility] Last Admin: 02/06/18 22:09 Dose: 30 mg Mupirocin (Bactroban Ointment) 0 gm TOP BID [facility] Last Admin: 02/06/18 18:57 Dose: Not Given Oxycodone HCl (Oxycodone Immediate Release Tab) 10 mg PO Q8H PRN PRN Reason: Pain, severe (8-10) Pantoprazole Sodium (Protonix Ec Tab) 40 mg PO DAILY [facility] Last Admin: 02/06/18 09:08 Dose: 40 mg Trazodone HCl (Desyrel) 50 mg PO HS [facility] Last Admin: 02/06/18 22:09 Dose: 50 mg Valsartan (Diovan) 320 mg PO DAILY [facility] Last Admin: 02/06/18 09:08 Dose: 320 mg Warfarin Sodium (Coumadin) 0.5 mg PO 1800 [facility] PRN Reason: Protocol Last Admin: 02/06/18 17:31 Dose: 0.5 mg Zolpidem Tartrate (Ambien) 5 mg PO HS PRN; Protocol PRN Reason: Sleep Last Admin: 02/06/18 22:09 Dose: 5 mg - Labs Labs: 02/07/18 04:55 02/07/18 04:55 PT 14.6 SECONDS (9.4-12.5) H 02/07/18 04:55 INR 1.27 (0.93-1.08) H 02/07/18 04:55 APTT 29.0 Seconds (25.1-36.5) 02/03/18 23:00 - Constitutional Appears: No Acute Distress - Head Exam Head Exam: NORMAL INSPECTION, NORMOCEPHALIC - Eye Exam Eye Exam: Normal appearance - ENT Exam ENT Exam: Mucous Membranes Moist - Respiratory Exam Respiratory Exam: Decreased Breath Sounds, Rhonchi, NORMAL BREATHING PATTERN - Cardiovascular Exam Cardiovascular Exam: REGULAR RHYTHM, +S1, +S2 - GI/Abdominal Exam GI & Abdominal Exam: Soft, Normal Bowel Sounds - Exam Additional comments: sy catheter - Extremities Exam Extremities Exam: Normal Capillary Refill Additional comments: left sided hemiplegia, contracted left arm - Neurological Exam Neurological Exam: Alert, Awake, Oriented x3 - Psychiatric Exam Psychiatric exam: Normal Affect, Normal Mood - Skin Skin Exam: Normal Color, Warm Additional comments: stage 4 sacral decubitus prior to admission Assessment and Plan - Assessment and Plan (Free Text) Assessment: IMPRESSION: A 77 year old female with history of atrial fibrillation, hypertension,hypercholesterolemia,cerebrovascular accident, non obstructive coronary artery disease ( last cath 2013) history of abdominal aortic dissection, endovascular leak, seizure disorder, history of thrombocytopenia, chronic pain syndrome, history of decubitus ulcers, Chronic active hepatitis C, CVA with left hemiplegia, urinary tract infection ,history of ESBL-producing E. coli, sy catheter, history of pneumonia. Right lower lobe pneumonia, sacral decubitus positive for MRSA. Plan: On contact Isolation for sacral decubitus positive for MRSA On IV antibiotics already for right lower lobe pneumonia Followed up by Infectious disease Stable cardiac status BP and heart rate stable On ASA 81 mg daily, Catapres 0.3 mg patch daily,Hydralazine 100 mg TID, Lopressor 50 mg BID, Diovan 320 mg daily, Coumadin 0.5 mg daily (low dose due to history of bleeding) Repositioning to side due to sacral decubitus Nutritional support Continue current medications Continue current treatment Will follow up Plan and treatment discussed with Dr. Wilkerson
[2018-02-07] MEDS: Acetylcysteine 20% Inhal Soln (4ml) IH SCH ×4 (07:54→21:31)
[2018-02-07] MEDS: Albuterol-Ipratrop 3 mg / 0.5 (3 ml) UD IH SCH ×6 (07:54→21:30)
--- NOTE | 2018-02-07 09:32 | RAD ---
PROCEDURE: Left Foot Radiographs. HISTORY: LEFT HEEL ULCER COMPARISON: 08/13/2016 FINDINGS: BONES: Three views of the left foot were performed portably. Moderate diffuse soft tissue swelling of the left forefoot region and lesser degree hindfoot soft tissue swelling are seen. There is diffuse mottling of the bones throughout the distal lower leg and entire ankle/ foot. No fracture is seen. No lytic process is noted. No periosteal reaction is seen. JOINTS: Mild degenerative changes. No erosions seen. SOFT TISSUES: See above OTHER FINDINGS: Subtalar joint is unremarkable. Talar dome is normal in outline. No periosteal reaction is seen. IMPRESSION: Moderate diffuse soft tissue swelling suggestive of cellulitis or other soft tissue edema. No radiopaque foreign body. No fracture seen. No plain film evidence of osteomyelitis in the region of the patient's reported heel ulcer.
[2018-02-07] MEDS: Azithromycin 500MG/NS 250ml 500 MG/250 ML BAG IVPB SCH (10:01)
[2018-02-07] MEDS: levETIRAcetam 500 mg/5ml UD cups PO SCH ×2 (10:02→17:39)
[2018-02-07] MEDS: Pantoprazole 40 mg EC Tab PO SCH (10:03)
[2018-02-07] MEDS: Magnesium Oxide 400 mg Tab UD PO SCH ×2 (10:03→18:13)
--- NOTE | 2018-02-07 13:16 | CP.PCM.PN ---
Subjective - Date & Time of Evaluation Date of Evaluation: 02/07/18 Time of Evaluation: 11:15 - Subjective Subjective: Patient is sleepy but easily arousable, no fevers, not in distress. Objective - Vital Signs/Intake and Output Vital Signs (last 24 hours): Temp Pulse Resp BP Pulse Ox 98.0 F 75 17 128/60 98 02/07/18 06:00 02/07/18 10:03 02/07/18 06:00 02/07/18 10:03 02/07/18 06:00 Intake and Output: 02/07/18 02/07/18 06:59 18:59 Intake Total 720 Output Total 200 Balance 520 - Medications Medications: Current Medications Acetaminophen (Tylenol 325mg Tab) 650 mg PO Q4 PRN PRN Reason: Fever >100.4 F Last Admin: 02/06/18 05:57 Dose: 650 mg Acetylcysteine (Acetylcysteine 20%) 3 ml IH BID [facility] Last Admin: 02/07/18 07:54 Dose: 3 ml Albuterol/Ipratropium (Duoneb 3 Mg/0.5 Mg (3 Ml) Ud) 3 ml IH QID [facility] Last Admin: 02/07/18 07:54 Dose: 3 ml Aspirin (Aspirin Chewable) 81 mg PO DAILY [facility] Last Admin: 02/07/18 10:03 Dose: 81 mg Clonidine HCl (Catapres-Tts3 0.3 Mg/24 Hr) 1 patch TD Q7D@1000 [facility] Clonidine HCl (Catapres) 0.1 mg PO Q6 PRN PRN Reason: systolic bp >170 Last Admin: 02/07/18 08:18 Dose: 0.1 mg Hydralazine HCl (Apresoline) 100 mg PO TID [facility] Last Admin: 02/07/18 10:03 Dose: 100 mg Azithromycin (Zithromax 500mg In Ns) 500 mg in 250 mls @ 167 mls/hr IVPB DAILY [facility] PRN Reason: Protocol Last Admin: 02/07/18 10:01 Dose: 167 mls/hr Meropenem (Merrem Iv 1 Gm Premix) 50 mls @ 100 mls/hr IVPB Q8 [facility] PRN Reason: Protocol Last Admin: 02/07/18 05:47 Dose: 100 mls/hr Vancomycin HCl (Vancomycin 1gm) 1 gm in 250 mls @ 167 mls/hr IVPB Q12H [facility] PRN Reason: Protocol Last Admin: 02/07/18 01:51 Dose: 167 mls/hr Amino Acids (Clinimix 5/20 % (1000 Ml)) 1,000 mls @ 42 mls/hr IV .[id number] [facility] Stop: 02/10/18 17:25 Levetiracetam (Keppra) 500 mg PO BID [facility] Last Admin: 02/07/18 10:02 Dose: 500 mg Magnesium Oxide (Mag-Ox) 400 mg PO BID [facility] Last Admin: 02/07/18 10:03 Dose: 400 mg Metoprolol Tartrate (Lopressor) 50 mg PO BRKDIN [facility] Last Admin: 02/07/18 08:17 Dose: 50 mg Mirtazapine (Remeron) 30 mg PO HS [facility] Last Admin: 02/06/18 22:09 Dose: 30 mg Mupirocin (Bactroban Ointment) 0 gm TOP BID [facility] Last Admin: 02/07/18 10:06 Dose: Not Given Oxycodone HCl (Oxycodone Immediate Release Tab) 10 mg PO Q8H PRN PRN Reason: Pain, severe (8-10) Pantoprazole Sodium (Protonix Ec Tab) 40 mg PO DAILY [facility] Last Admin: 02/07/18 10:03 Dose: 40 mg Trazodone HCl (Desyrel) 50 mg PO HS [facility] Last Admin: 02/06/18 22:09 Dose: 50 mg Valsartan (Diovan) 320 mg PO DAILY [facility] Last Admin: 02/07/18 10:06 Dose: 320 mg Warfarin Sodium (Coumadin) 0.5 mg PO 1800 [facility] PRN Reason: Protocol Last Admin: 02/06/18 17:31 Dose: 0.5 mg Zolpidem Tartrate (Ambien) 5 mg PO HS PRN; Protocol PRN Reason: Sleep Last Admin: 02/06/18 22:09 Dose: 5 mg - Labs Labs: 02/07/18 04:55 02/07/18 04:55 PT 14.6 SECONDS (9.4-12.5) H 02/07/18 04:55 INR 1.27 (0.93-1.08) H 02/07/18 04:55 APTT 29.0 Seconds (25.1-36.5) 02/03/18 23:00 - Constitutional Appears: Chronically Ill - Head Exam Head Exam: NORMAL INSPECTION - Respiratory Exam Respiratory Exam: Decreased Breath Sounds - Cardiovascular Exam Cardiovascular Exam: +S1, +S2 - GI/Abdominal Exam GI & Abdominal Exam: Soft. absent: Tenderness - Extremities Exam Additional comments: left foot with dressings in place Assessment and Plan - Assessment and Plan (Free Text) Plan: Assessment Sepsis due to right lower lobe HCAP consider decubitus ulcer and left heel ulcer infection with MRSA history of left rectus sheath hematoma history of acute pancreatitis Stage 4 decubitus ulcer history of right lower lobe healthcare-associated pneumonia history of ESBL E. coli and Enterococcus UTI history of ESBL E. coli UTI atrial fibrillation cerebrovascular accident history of aortic dissection seizure disorder history of thrombocytopenia HTN hypercholesterolemia chronic pain syndrome history of decubitus ulcers chronic active hepatitis C Plan continue IV Vancomycin, Merrem and Zithromax day 4 to complete at least 7 days of therapy will continue to monitor clinically overall prognosis is poor
--- NOTE | 2018-02-07 14:21 | CP.PCM.CON ---
History of Present Illness - History of Present Illness History of Present Illness: Seen and examined at the bedside earlier this morning, chart reviewed. Request for GI consult is for poor appetite. HPI: This is a 77-year-old female with a past medical history of CVA with left hemiparesis, chronic anemia, COPD, chronic hepatitis C and abdominal aortic aneurysm brought to the emergency room for fever of 101 at home. Patient found to have infilrates on CXR. The patient is reported to have poor appetite. The patient seen at bedside does endorse decreased appetite. Does have history of difficulty swallowing. Patient has had swallowing evaluation in the past. Recommended puree diet/thick liquids in the past. Patient currently denies symptoms of nausea, vomiting or severe abdominal pain. Patient does have chronic abdominal pain.patient is reported to be taking 4-5 cans of ensure at home. Past medical history: CVA with left-sided paralysis, atrial fibrillation, seizure disorder, aortic aneurysm status post stent, hepatitis C, CHF, chronic anemia, UTI, COPD, chronic constipation, diverticulosis, left breast mass. Past surgical history is endovascular graft for aortic aneurysm, cardiac catheterization, appendectomy, last colonoscopy was 03/2013 found to have diverticulosis, hemorrhoids and redundant colon. Last endoscopy was 2015 found to have medium-size hiatal hernia and esophagus, stomach and duodenum were normal. Patient also had left hip surgery. Family history: Noncontributory Social history: Former smoker, no history of EtOH or recreational drug use Allergies: Penicillin Medications reviewed as per MYA ROS: Systems reviewed. Positive findings see HPIV Past Patient History - Infectious Disease Hx of Infectious Diseases: None - Tetanus Immunizations Tetanus Immunization: Unknown - Past Social History Smoking Status: Former Smoker - CARDIAC Hx Pacemaker: No - PULMONARY Hx Pneumonia: Yes - NEUROLOGICAL Hx Neurological Disorder: Yes HX Cerebrovascular Accident: Yes (LEFT PARALYSIS) Hx Seizures: Yes Hx Transient Ischemic Attacks (TIA): Yes - HEENT Hx HEENT Problems: No - RENAL Hx Chronic Kidney Disease: Yes Hx Renal Failure: Yes - ENDOCRINE/METABOLIC Hx Endocrine Disorders: No - HEMATOLOGICAL/ONCOLOGICAL Hx Cancer: No - INTEGUMENTARY Hx Dermatological Problems: No - MUSCULOSKELETAL/RHEUMATOLOGICAL Hx Falls: Yes - GASTROINTESTINAL Other/Comment: HEP C - GENITOURINARY/GYNECOLOGICAL Hx Genitourinary Disorders: Yes Other/Comment: 2WF. B/L BREAST IMPLANTS - PSYCHIATRIC Hx Substance Use: No - SURGICAL HISTORY Hx Mastectomy: No - ANESTHESIA Hx Anesthesia: Yes Hx Anesthesia Reactions: No Hx Malignant Hyperthermia: No Meds Allergies/Adverse Reactions: Allergies Allergy/AdvReac Type Severity Reaction Status Date / Time Penicillins AdvReac Intermediate RASH Verified 10/04/17 17:22 - Medications Medications: Current Medications Acetaminophen (Tylenol 325mg Tab) 650 mg PO Q4 PRN PRN Reason: Fever >100.4 F Last Admin: 02/06/18 05:57 Dose: 650 mg Acetylcysteine (Acetylcysteine 20%) 3 ml IH BID [facility] Last Admin: 02/07/18 11:14 Dose: Not Given Albuterol/Ipratropium (Duoneb 3 Mg/0.5 Mg (3 Ml) Ud) 3 ml IH QID [facility] Last Admin: 02/07/18 11:15 Dose: 3 ml Aspirin (Aspirin Chewable) 81 mg PO DAILY [facility] Last Admin: 02/07/18 10:03 Dose: 81 mg Clonidine HCl (Catapres-Tts3 0.3 Mg/24 Hr) 1 patch TD Q7D@1000 [facility] Clonidine HCl (Catapres) 0.1 mg PO Q6 PRN PRN Reason: systolic bp >170 Last Admin: 02/07/18 08:18 Dose: 0.1 mg Hydralazine HCl (Apresoline) 100 mg PO TID [facility] Last Admin: 02/07/18 13:23 Dose: 100 mg Azithromycin (Zithromax 500mg In Ns) 500 mg in 250 mls @ 167 mls/hr IVPB DAILY [facility] PRN Reason: Protocol Last Admin: 02/07/18 10:01 Dose: 167 mls/hr Meropenem (Merrem Iv 1 Gm Premix) 50 mls @ 100 mls/hr IVPB Q8 [facility] PRN Reason: Protocol Last Admin: 02/07/18 13:18 Dose: 100 mls/hr Vancomycin HCl (Vancomycin 1gm) 1 gm in 250 mls @ 167 mls/hr IVPB Q12H [facility] PRN Reason: Protocol Last Admin: 02/07/18 13:17 Dose: 167 mls/hr Amino Acids (Clinimix 5/20 % (1000 Ml)) 1,000 mls @ 42 mls/hr IV .[id number] [facility] Stop: 02/10/18 17:25 Levetiracetam (Keppra) 500 mg PO BID [facility] Last Admin: 02/07/18 10:02 Dose: 500 mg Magnesium Oxide (Mag-Ox) 400 mg PO BID [facility] Last Admin: 02/07/18 10:03 Dose: 400 mg Metoprolol Tartrate (Lopressor) 50 mg PO BRKDIN [facility] Last Admin: 02/07/18 08:17 Dose: 50 mg Mirtazapine (Remeron) 30 mg PO HS [facility] Last Admin: 02/06/18 22:09 Dose: 30 mg Mupirocin (Bactroban Ointment) 0 gm TOP BID [facility] Last Admin: 02/07/18 10:06 Dose: Not Given Oxycodone HCl (Oxycodone Immediate Release Tab) 10 mg PO Q8H PRN PRN Reason: Pain, severe (8-10) Pantoprazole Sodium (Protonix Ec Tab) 40 mg PO DAILY [facility] Last Admin: 02/07/18 10:03 Dose: 40 mg Trazodone HCl (Desyrel) 50 mg PO HS [facility] Last Admin: 02/06/18 22:09 Dose: 50 mg Valsartan (Diovan) 320 mg PO DAILY [facility] Last Admin: 02/07/18 10:06 Dose: 320 mg Warfarin Sodium (Coumadin) 0.5 mg PO 1800 [facility] PRN Reason: Protocol Last Admin: 02/06/18 17:31 Dose: 0.5 mg Zolpidem Tartrate (Ambien) 5 mg PO HS PRN; Protocol PRN Reason: Sleep Last Admin: 02/06/18 22:09 Dose: 5 mg Physical Exam - Constitutional Appears: No Acute Distress, Chronically Ill - Head Exam Head Exam: NORMOCEPHALIC - Eye Exam Eye Exam: Normal appearance. absent: Scleral icterus - ENT Exam ENT Exam: Mucous Membranes Moist - Respiratory Exam Respiratory Exam: NORMAL BREATHING PATTERN. absent: Respiratory Distress - Cardiovascular Exam Cardiovascular Exam: +S1, +S2 - GI/Abdominal Exam GI & Abdominal Exam: Normal Bowel Sounds, Soft. absent: Guarding, Organomegaly , Rebound, Tenderness - Extremities Exam Extremities exam: Positive for: pedal edema. Negative for: calf tenderness Additional comments: lower extremity contracted - Neurological Exam Neurological exam: Alert, Oriented x3 - Skin Skin Exam: Dry, Warm Results - Vital Signs Recent Vital Signs: Last Vital Signs Temp 98.0 F 02/07/18 06:00 Pulse 75 02/07/18 10:03 Resp 17 02/07/18 06:00 BP 128/60 02/07/18 10:03 Pulse Ox 98 02/07/18 06:00 - Labs Result Diagrams: 02/07/18 04:55 02/07/18 04:55 Labs: Laboratory Results - last 24 hr 02/07/18 02/07/18 02/07/18 04:55 04:55 04:55 WBC 5.9 D RBC 2.76 L Hgb 8.8 L Hct 26.7 L MCV 96.7 MCH 31.9 MCHC 33.0 RDW 13.0 Plt Count 100 L MPV 8.9 PT 14.6 H INR 1.27 H Sodium 147 Potassium 4.1 Chloride 113 H Carbon Dioxide 24 Anion Gap 14 BUN 22 H Creatinine 0.6 L Est GFR ( Amer) > 60 Est GFR (Non-Af Amer) > 60 Random Glucose 97 Calcium 8.5 Total Bilirubin 0.6 AST 35 ALT 30 Alkaline Phosphatase 81 Total Protein 6.1 Albumin 3.0 Globulin 3.1 Albumin/Globulin Ratio 1.0 L Assessment & Plan - Assessment and Plan (Free Text) Assessment: Assessment: Left lower lobe pneumonia Poor appetite Chronic anemia History CVA with left hemiparesis Hypertension History of atrial fibrillation Dementia Plan: patient to start TPN today Encourage oral intake On IV antibiotics On PPI DVT prophylaxis, as SCD boots on chart review, family has refused PEG tube, patient on palliative care Thank you for this consult and for allowing us to participate in your patient's care, further recommendations based upon clinical course. Case discussed w/ Dr. Clarke covering Dr. Galindo.
[2018-02-07] MEDS: Amino/Dext 5/20 1,000 ML IV SCH (18:14)
[2018-02-07] MEDS: oxyCODONE 10 mg Immediate Release Tab PO PRN (20:50)
--- NOTE | 2018-02-07 22:56 | PN ---
DATE: 02/07/2018 PULMONARY PROGRESS NOTE REFERRING PHYSICIAN: Dr. Forte. SUBJECTIVE: She is lying in the bed, sleepy, arousable. Night was unremarkable. Mild cough. No sputum production. No nausea, no vomiting, no diarrhea. Has multiple pressure ulcers. OBJECTIVE: GENERAL: No acute distress. VITAL SIGNS: Temperature is 98, heart rate is 93, respiratory rate is 18, blood pressure 128/60, pulse ox 98% on nasal cannula. HEENT: Moist mucous membrane. Small oral cavity. NECK: Supple. No JVD. LUNGS: Have diffuse scattered rhonchi. HEART: S1 and S2. ABDOMEN: Soft, nontender, no organomegaly. EXTREMITIES: Does have pressure ulcers, decubitus ulcers. NEUROLOGIC: Sleepy, arousable, follows simple command. MEDICATIONS: She is on Mucomyst inhaled twice a day; Ambien 5 mg at bedtime p.r.n.; hydralazine 100 mg three times a day; aspirin 81 mg daily; clonidine 0.1 mg every 6 hours p.r.n., also on clonidine patch 0.3 weekly; she is on Clinimix 42 mL per hour, Coumadin 0.5 mg daily, trazodone 50 mg at bedtime, Diovan 320 mg daily, albuterol/Atrovent nebulizer four times daily, Keppra 500 mg twice a day, metoprolol tartrate 50 mg twice a day, magnesium oxide 400 mg twice a day, meropenem 1 g every 8 hours, OxyContin immediate release 10 mg every 8 hours p.r.n., Protonix 40 mg daily, Remeron 30 mg at bedtime, Tylenol p.r.n., vancomycin 1 g IV every 12 hours, Zithromax 500 mg daily. LABORATORY DATA: Shows hemoglobin 8.8, hematocrit 26.7, WBC 5.9, platelet count is 100. INR is 1.27. Sodium 147, potassium 4.1, chloride 113, bicarbonate 24, BUN 22, creatinine 0.6, glucose 97, calcium is 8.5. AST 35, ALT 30, alkaline phosphatase is 81, albumin is 3, TSH 1.47. Microbiology: Urine culture is negative. Sacral ulcer has Staph and E. coli. IMPRESSION AND PLAN: Chronic obstructive lung disease, may have sleep apnea syndrome, right lower lobe atelectasis, sacral ulcer, urinary tract infection, hypertension. Seen by Infectious Disease, started on broad-spectrum antibiotics covering healthcare-associated organism. From a Pulmonary point of view, keep head at 45 degrees, bronchodilator, refusing to use CPAP, may have a component of sleep apnea syndrome, aspiration precaution. Thank you and we will follow with you. Anushka Barreto MD
[2018-02-08] MEDS: Vancomycin 1gm in NS 250ml 1 GM/250 ML BAG IVPB SCH ×2 (05:06→13:27)
[2018-02-08] MEDS: Meropenem IV 1 gm in NS 50 ML IVPB SCH ×3 (06:47→22:26)
--- NOTE | 2018-02-08 07:15 | CP.PCM.PN ---
Subjective - Date & Time of Evaluation Date of Evaluation: 02/08/18 Time of Evaluation: 06:15 - Subjective Subjective: Awake, comfortable ,denies shortness of breath, denies chest pain Reason for consult and follow up: Cardiac evaluation, history of non obstructive coronary artery disease, Atrial fibrillation, cerebrovascular disease with left side hemiplegia, hypertension, hyperlcholesterolemia, abdominal aortic aneurysm. Seen and examined by me and Dr. Wilkerson Objective - Vital Signs/Intake and Output Vital Signs (last 24 hours): Temp Pulse Resp BP Pulse Ox 98.0 F 92 H 17 148/77 98 02/07/18 06:00 02/07/18 17:41 02/07/18 06:00 02/07/18 17:41 02/07/18 06:00 - Medications Medications: Current Medications Acetaminophen (Tylenol 325mg Tab) 650 mg PO Q4 PRN PRN Reason: Fever >100.4 F Last Admin: 02/06/18 05:57 Dose: 650 mg Acetylcysteine (Acetylcysteine 20%) 3 ml IH BID [facility] Last Admin: 02/07/18 21:15 Dose: 3 ml Albuterol/Ipratropium (Duoneb 3 Mg/0.5 Mg (3 Ml) Ud) 3 ml IH QID [facility] Last Admin: 02/07/18 21:15 Dose: 3 ml Aspirin (Aspirin Chewable) 81 mg PO DAILY [facility] Last Admin: 02/07/18 10:03 Dose: 81 mg Clonidine HCl (Catapres-Tts3 0.3 Mg/24 Hr) 1 patch TD Q7D@1000 [facility] Clonidine HCl (Catapres) 0.1 mg PO Q6 PRN PRN Reason: systolic bp >170 Last Admin: 02/07/18 08:18 Dose: 0.1 mg Hydralazine HCl (Apresoline) 100 mg PO TID [facility] Last Admin: 02/07/18 17:41 Dose: 100 mg Azithromycin (Zithromax 500mg In Ns) 500 mg in 250 mls @ 167 mls/hr IVPB DAILY [facility] PRN Reason: Protocol Last Admin: 02/07/18 10:01 Dose: 167 mls/hr Meropenem (Merrem Iv 1 Gm Premix) 50 mls @ 100 mls/hr IVPB Q8 [facility] PRN Reason: Protocol Last Admin: 02/08/18 06:47 Dose: 100 mls/hr Vancomycin HCl (Vancomycin 1gm) 1 gm in 250 mls @ 167 mls/hr IVPB Q12H [facility] PRN Reason: Protocol Last Admin: 02/08/18 05:06 Dose: 167 mls/hr Amino Acids (Clinimix 5/20 % (1000 Ml)) 1,000 mls @ 42 mls/hr IV .[id number] [facility] Stop: 02/10/18 17:25 Last Admin: 02/07/18 18:14 Dose: 42 mls/hr Levetiracetam (Keppra) 500 mg PO BID [facility] Last Admin: 02/07/18 17:39 Dose: 500 mg Magnesium Oxide (Mag-Ox) 400 mg PO BID [facility] Last Admin: 02/07/18 18:13 Dose: 400 mg Metoprolol Tartrate (Lopressor) 50 mg PO BRKDIN [facility] Last Admin: 02/07/18 17:40 Dose: 50 mg Mirtazapine (Remeron) 30 mg PO HS [facility] Last Admin: 02/07/18 22:18 Dose: 30 mg Mupirocin (Bactroban Ointment) 0 gm TOP BID [facility] Last Admin: 02/07/18 17:39 Dose: 1 applic Oxycodone HCl (Oxycodone Immediate Release Tab) 10 mg PO Q8H PRN PRN Reason: Pain, severe (8-10) Last Admin: 02/07/18 20:50 Dose: 10 mg Pantoprazole Sodium (Protonix Ec Tab) 40 mg PO DAILY [facility] Last Admin: 02/07/18 10:03 Dose: 40 mg Trazodone HCl (Desyrel) 50 mg PO HS [facility] Last Admin: 02/07/18 22:18 Dose: 50 mg Valsartan (Diovan) 320 mg PO DAILY [facility] Last Admin: 02/07/18 10:06 Dose: 320 mg Warfarin Sodium (Coumadin) 0.5 mg PO 1800 [facility] PRN Reason: Protocol Last Admin: 02/07/18 17:40 Dose: 0.5 mg Zolpidem Tartrate (Ambien) 5 mg PO HS PRN; Protocol PRN Reason: Sleep Last Admin: 02/06/18 22:09 Dose: 5 mg - Labs Labs: 02/07/18 04:55 04/28/18 04:55 PT 14.6 SECONDS (9.4-12.5) H 02/07/18 04:55 INR 1.27 (0.93-1.08) H 02/07/18 04:55 APTT 29.0 Seconds (25.1-36.5) 02/03/18 23:00 - Constitutional Appears: No Acute Distress - Eye Exam Eye Exam: Normal appearance Pupil Exam: NORMAL ACCOMODATION - ENT Exam ENT Exam: Mucous Membranes Moist - Respiratory Exam Respiratory Exam: Clear to Ausculation Bilateral, NORMAL BREATHING PATTERN - Cardiovascular Exam Cardiovascular Exam: REGULAR RHYTHM, +S1, +S2 - GI/Abdominal Exam GI & Abdominal Exam: Soft, Normal Bowel Sounds - Exam Additional comments: sy catheter - Extremities Exam Extremities Exam: Normal Capillary Refill Additional comments: left side hemiplegia, left arm flaccid - Neurological Exam Neurological Exam: Alert, Awake, Oriented x3 - Psychiatric Exam Psychiatric exam: Normal Affect, Normal Mood - Skin Skin Exam: Intact, Normal Color, Warm Additional comments: stage 4 sacral decubitus, ecchymosis on both arms due to IV punctures Assessment and Plan - Assessment and Plan (Free Text) Assessment: IMPRESSION: A 77 year old female with history of atrial fibrillation, hypertension,hypercholesterolemia,cerebrovascular accident, non obstructive coronary artery disease ( last cath 2013) history of abdominal aortic dissection, endovascular leak, seizure disorder, history of thrombocytopenia, chronic pain syndrome, history of decubitus ulcers, Chronic active hepatitis C, CVA with left hemiplegia, urinary tract infection ,history of ESBL-producing E. coli, sy catheter, history of pneumonia. Right lower lobe pneumonia, sacral decubitus positive for MRSA. Plan: Stable cardiac status BP and heart rate stable On ASA 81 mg daily, Catapres 0.3 mg patch daily,Hydralazine 100 mg TID, Lopressor 50 mg BID, Diovan 320 mg daily, Coumadin 0.5 mg daily (low dose due to history of bleeding) Repositioning to side due to sacral decubitus On contact Isolation for sacral decubitus positive for MRSA Continue IV antibiotics as ordered Followed up by Infectious disease Nutritional support Continue current medications Continue current treatment Will follow up Plan and treatment discussed with Dr. Wilkerson
[2018-02-08] MEDS: Albuterol-Ipratrop 3 mg / 0.5 (3 ml) UD IH SCH ×5 (07:53→20:53)
[2018-02-08] MEDS: Acetylcysteine 20% Inhal Soln (4ml) IH SCH ×3 (07:54→20:52)
[2018-02-08] MEDS: Magnesium Oxide 400 mg Tab UD PO SCH ×2 (10:35→18:06)
[2018-02-08] MEDS: levETIRAcetam 500 mg/5ml UD cups PO SCH ×2 (10:35→18:06)
[2018-02-08] MEDS: Azithromycin 500MG/NS 250ml 500 MG/250 ML BAG IVPB SCH (10:36)
[2018-02-08] MEDS: Pantoprazole 40 mg EC Tab PO SCH (10:36)
--- NOTE | 2018-02-08 11:24 | CP.PCM.PN ---
<Kathy Gilbert - Last Filed: 02/08/18 11:20> Subjective - Date & Time of Evaluation Date of Evaluation: 02/08/18 Time of Evaluation: 11:20 - Subjective Subjective: podiatry progress note for Dr. Barger: 77 y/o female seen at bedside for left heel ulceration, well known to podiatry team. Patient resting comfortably in bed in [facility]. Patient's multipodus boots are intact to bilateral lower extremities. Patient complains of pain to her left heel. She denies any acute events overnight. Patient denies n/f/v/d/c/sob. Objective - Vital Signs/Intake and Output Vital Signs (last 24 hours): Temp Pulse Resp BP Pulse Ox 98.0 F 89 17 160/73 H 98 02/07/18 06:00 02/08/18 10:36 02/07/18 06:00 02/08/18 10:36 02/07/18 06:00 - Medications Medications: Current Medications Acetaminophen (Tylenol 325mg Tab) 650 mg PO Q4 PRN PRN Reason: Fever >100.4 F Last Admin: 02/06/18 05:57 Dose: 650 mg Acetylcysteine (Acetylcysteine 20%) 3 ml IH BID [facility] Last Admin: 02/08/18 07:54 Dose: 3 ml Albuterol/Ipratropium (Duoneb 3 Mg/0.5 Mg (3 Ml) Ud) 3 ml IH QID [facility] Last Admin: 02/08/18 10:52 Dose: 3 ml Aspirin (Aspirin Chewable) 81 mg PO DAILY [facility] Last Admin: 02/08/18 10:35 Dose: 81 mg Clonidine HCl (Catapres-Tts3 0.3 Mg/24 Hr) 1 patch TD Q7D@1000 [facility] Clonidine HCl (Catapres) 0.1 mg PO Q6 PRN PRN Reason: systolic bp >170 Last Admin: 02/07/18 08:18 Dose: 0.1 mg Hydralazine HCl (Apresoline) 100 mg PO TID [facility] Last Admin: 02/08/18 10:36 Dose: 100 mg Azithromycin (Zithromax 500mg In Ns) 500 mg in 250 mls @ 167 mls/hr IVPB DAILY [facility] PRN Reason: Protocol Last Admin: 02/08/18 10:36 Dose: 167 mls/hr Meropenem (Merrem Iv 1 Gm Premix) 50 mls @ 100 mls/hr IVPB Q8 [facility] PRN Reason: Protocol Last Admin: 02/08/18 06:47 Dose: 100 mls/hr Vancomycin HCl (Vancomycin 1gm) 1 gm in 250 mls @ 167 mls/hr IVPB Q12H [facility] PRN Reason: Protocol Last Admin: 02/08/18 05:06 Dose: 167 mls/hr Amino Acids (Clinimix 5/20 % (1000 Ml)) 1,000 mls @ 42 mls/hr IV .[id number] [facility] Stop: 02/10/18 17:25 Last Admin: 02/07/18 18:14 Dose: 42 mls/hr Levetiracetam (Keppra) 500 mg PO BID [facility] Last Admin: 02/08/18 10:35 Dose: 500 mg Magnesium Oxide (Mag-Ox) 400 mg PO BID [facility] Last Admin: 02/08/18 10:35 Dose: 400 mg Metoprolol Tartrate (Lopressor) 50 mg PO BRKDIN [facility] Last Admin: 02/08/18 08:38 Dose: 50 mg Mirtazapine (Remeron) 30 mg PO HS [facility] Last Admin: 02/07/18 22:18 Dose: 30 mg Mupirocin (Bactroban Ointment) 0 gm TOP BID [facility] Last Admin: 02/08/18 10:36 Dose: 1 applic Oxycodone HCl (Oxycodone Immediate Release Tab) 10 mg PO Q8H PRN PRN Reason: Pain, severe (8-10) Last Admin: 02/07/18 20:50 Dose: 10 mg Pantoprazole Sodium (Protonix Ec Tab) 40 mg PO DAILY [facility] Last Admin: 02/08/18 10:36 Dose: 40 mg Trazodone HCl (Desyrel) 50 mg PO HS [facility] Last Admin: 02/07/18 22:18 Dose: 50 mg Valsartan (Diovan) 320 mg PO DAILY [facility] Last Admin: 02/08/18 10:35 Dose: 320 mg Warfarin Sodium (Coumadin) 0.5 mg PO 1800 [facility] PRN Reason: Protocol Last Admin: 02/07/18 17:40 Dose: 0.5 mg Zolpidem Tartrate (Ambien) 5 mg PO HS PRN; Protocol PRN Reason: Sleep Last Admin: 02/06/18 22:09 Dose: 5 mg - Labs Labs: 02/07/18 04:55 02/07/18 04:55 PT 14.6 SECONDS (9.4-12.5) H 02/07/18 04:55 INR 1.27 (0.93-1.08) H 02/07/18 04:55 APTT 29.0 Seconds (25.1-36.5) 02/03/18 23:00 - Constitutional Appears: Well, Non-toxic, No Acute Distress - Extremities Exam Additional comments: left lower extremity focused: vasc: nonpalpable pedal pulses, TG wnl, CFT < 4 sec to all digits neuro: grossly diminished derm: no edema, mild erythema to plantar and posterior heel, skin appears thin, shiny and discolored, nails are elongated, thickened and dystrophic, superficial nonstageable ulceration to the left heel with base of primary granulation tissue, fibrous border, minimal serous drainage noted, no purulence , no fluctaunce, no ascending cellulitis, no probe to tendon or bone ortho: moderate pain on palpation to plantar foot - Neurological Exam Neurological Exam: Alert, Awake - Psychiatric Exam Psychiatric exam: Normal Affect, Normal Mood Assessment and Plan - Assessment and Plan (Free Text) Assessment: 77 y/o female seen at bedside for left heel nonstageable ulceration with MRSA Plan: patient evaluated and chart reviewed discussed in detail with attending Dr. Barger labs and vitals reviewed; wbc 5.9, afebrile applied bactroban, optifoam, multipodus boots to lower extremity cont. IV abx as recommended x ray of left foot shows cellulitis, no acute evidence of OM podiatry will continue to follow while patient remains in house <Richard Barger - Last Filed: 02/10/18 11:12> Objective - Vital Signs/Intake and Output Vital Signs (last 24 hours): Temp Pulse Resp BP Pulse Ox 98.8 F 96 H 20 168/70 H 95 02/10/18 08:25 02/10/18 10:13 02/10/18 08:25 02/10/18 10:13 02/10/18 08:25 Intake and Output: 02/10/18 02/10/18 06:59 18:59 Intake Total 360 0 Output Total 800 400 Balance -440 -400 - Medications Medications: Current Medications Acetaminophen (Tylenol 325mg Tab) 650 mg PO Q4 PRN PRN Reason: Fever >100.4 F Last Admin: 02/06/18 05:57 Dose: 650 mg Acetylcysteine (Acetylcysteine 20%) 3 ml IH BIDRESP [facility] Last Admin: 02/10/18 08:00 Dose: 3 ml Albuterol/Ipratropium (Duoneb 3 Mg/0.5 Mg (3 Ml) Ud) 3 ml IH QIDRESP [facility] Last Admin: 02/10/18 11:03 Dose: 3 ml Amlodipine Besylate (Norvasc) 5 mg PO DAILY [facility] Last Admin: 02/10/18 10:13 Dose: 5 mg Aspirin (Aspirin Chewable) 81 mg PO DAILY [facility] Last Admin: 02/10/18 10:13 Dose: 81 mg Azithromycin (Zithromax) 500 mg PO DAILY [facility] Last Admin: 02/10/18 10:12 Dose: 500 mg Clonidine HCl (Catapres-Tts3 0.3 Mg/24 Hr) 1 patch TD Q7D@1000 [facility] Clonidine HCl (Catapres) 0.1 mg PO Q6 PRN PRN Reason: systolic bp >170 Last Admin: 02/07/18 08:18 Dose: 0.1 mg Hydralazine HCl (Apresoline) 100 mg PO TID [facility] Last Admin: 02/10/18 10:13 Dose: 100 mg Meropenem (Merrem Iv 1 Gm Premix) 50 mls @ 100 mls/hr IVPB Q8 [facility] PRN Reason: Protocol Last Admin: 02/10/18 05:41 Dose: 100 mls/hr Vancomycin HCl (Vancomycin 1gm) 1 gm in 250 mls @ 167 mls/hr IVPB Q12H [facility] PRN Reason: Protocol Last Admin: 02/10/18 02:45 Dose: 167 mls/hr Amino Acids (Clinimix 5/20 % (1000 Ml)) 1,000 mls @ 42 mls/hr IV .[id number] [facility] Stop: 02/10/18 17:25 Last Admin: 02/09/18 16:47 Dose: 42 mls/hr Levetiracetam (Keppra) 500 mg PO BID [facility] Last Admin: 02/10/18 10:14 Dose: 500 mg Magnesium Oxide (Mag-Ox) 400 mg PO BID [facility] Last Admin: 02/10/18 10:13 Dose: 400 mg Metoprolol Tartrate (Lopressor) 50 mg PO BRKDIN [facility] Last Admin: 02/10/18 10:13 Dose: 50 mg Mirtazapine (Remeron) 30 mg PO HS [facility] Last Admin: 02/09/18 22:40 Dose: 30 mg Mupirocin (Bactroban Ointment) 0 gm TOP BID [facility] Last Admin: 02/09/18 18:52 Dose: 1 applic Oxycodone HCl (Oxycodone Immediate Release Tab) 10 mg PO Q8H PRN PRN Reason: Pain, severe (8-10) Last Admin: 02/10/18 05:55 Dose: 10 mg Pantoprazole Sodium (Protonix Ec Tab) 40 mg PO DAILY [facility] Last Admin: 02/10/18 10:13 Dose: 40 mg Trazodone HCl (Desyrel) 50 mg PO HS [facility] Last Admin: 02/09/18 22:40 Dose: 50 mg Valsartan (Diovan) 320 mg PO DAILY [facility] Last Admin: 02/10/18 10:12 Dose: 320 mg Warfarin Sodium (Coumadin) 0.5 mg PO 1800 [facility] PRN Reason: Protocol Last Admin: 02/09/18 18:52 Dose: 0.5 mg Zolpidem Tartrate (Ambien) 5 mg PO HS PRN; Protocol PRN Reason: Sleep Last Admin: 02/06/18 22:09 Dose: 5 mg - Labs Labs: 02/09/18 11:51 02/10/18 06:00 PT 14.6 SECONDS (9.4-12.5) H 02/07/18 04:55 INR 1.27 (0.93-1.08) H 02/07/18 04:55 APTT 29.0 Seconds (25.1-36.5) 02/03/18 23:00 Attending/Attestation - Attestation I have personally seen and examined this patient.: Yes I have fully participated in the care of the patient.: Yes I have reviewed all pertinent clinical information, including history, physical exam and plan: Yes
--- NOTE | 2018-02-08 13:12 | CP.PCM.PN ---
Subjective - Date & Time of Evaluation Date of Evaluation: 02/08/18 Time of Evaluation: 12:30 - Subjective Subjective: Patient states she still has pain in the left foot, no fevers, no diarrhea. Objective - Vital Signs/Intake and Output Vital Signs (last 24 hours): Temp Pulse Resp BP Pulse Ox 98.0 F 89 17 160/73 H 98 02/07/18 06:00 02/08/18 08:38 02/07/18 06:00 02/08/18 08:38 02/07/18 06:00 - Medications Medications: Current Medications Acetaminophen (Tylenol 325mg Tab) 650 mg PO Q4 PRN PRN Reason: Fever >100.4 F Last Admin: 02/06/18 05:57 Dose: 650 mg Acetylcysteine (Acetylcysteine 20%) 3 ml IH BID [facility] Last Admin: 02/08/18 07:54 Dose: 3 ml Albuterol/Ipratropium (Duoneb 3 Mg/0.5 Mg (3 Ml) Ud) 3 ml IH QID [facility] Last Admin: 02/08/18 07:53 Dose: 3 ml Aspirin (Aspirin Chewable) 81 mg PO DAILY [facility] Last Admin: 02/07/18 10:03 Dose: 81 mg Clonidine HCl (Catapres-Tts3 0.3 Mg/24 Hr) 1 patch TD Q7D@1000 [facility] Clonidine HCl (Catapres) 0.1 mg PO Q6 PRN PRN Reason: systolic bp >170 Last Admin: 02/07/18 08:18 Dose: 0.1 mg Hydralazine HCl (Apresoline) 100 mg PO TID [facility] Last Admin: 02/07/18 17:41 Dose: 100 mg Azithromycin (Zithromax 500mg In Ns) 500 mg in 250 mls @ 167 mls/hr IVPB DAILY [facility] PRN Reason: Protocol Last Admin: 02/07/18 10:01 Dose: 167 mls/hr Meropenem (Merrem Iv 1 Gm Premix) 50 mls @ 100 mls/hr IVPB Q8 [facility] PRN Reason: Protocol Last Admin: 02/08/18 06:47 Dose: 100 mls/hr Vancomycin HCl (Vancomycin 1gm) 1 gm in 250 mls @ 167 mls/hr IVPB Q12H [facility] PRN Reason: Protocol Last Admin: 02/08/18 05:06 Dose: 167 mls/hr Amino Acids (Clinimix 5/20 % (1000 Ml)) 1,000 mls @ 42 mls/hr IV .[id number] [facility] Stop: 02/10/18 17:25 Last Admin: 02/07/18 18:14 Dose: 42 mls/hr Levetiracetam (Keppra) 500 mg PO BID [facility] Last Admin: 02/07/18 17:39 Dose: 500 mg Magnesium Oxide (Mag-Ox) 400 mg PO BID [facility] Last Admin: 02/07/18 18:13 Dose: 400 mg Metoprolol Tartrate (Lopressor) 50 mg PO BRKDIN [facility] Last Admin: 02/08/18 08:38 Dose: 50 mg Mirtazapine (Remeron) 30 mg PO HS [facility] Last Admin: 02/07/18 22:18 Dose: 30 mg Mupirocin (Bactroban Ointment) 0 gm TOP BID [facility] Last Admin: 02/07/18 17:39 Dose: 1 applic Oxycodone HCl (Oxycodone Immediate Release Tab) 10 mg PO Q8H PRN PRN Reason: Pain, severe (8-10) Last Admin: 02/07/18 20:50 Dose: 10 mg Pantoprazole Sodium (Protonix Ec Tab) 40 mg PO DAILY [facility] Last Admin: 02/07/18 10:03 Dose: 40 mg Trazodone HCl (Desyrel) 50 mg PO HS [facility] Last Admin: 02/07/18 22:18 Dose: 50 mg Valsartan (Diovan) 320 mg PO DAILY [facility] Last Admin: 02/07/18 10:06 Dose: 320 mg Warfarin Sodium (Coumadin) 0.5 mg PO 1800 [facility] PRN Reason: Protocol Last Admin: 02/07/18 17:40 Dose: 0.5 mg Zolpidem Tartrate (Ambien) 5 mg PO HS PRN; Protocol PRN Reason: Sleep Last Admin: 02/06/18 22:09 Dose: 5 mg - Labs Labs: 02/07/18 04:55 02/07/18 04:55 PT 14.6 SECONDS (9.4-12.5) H 02/07/18 04:55 INR 1.27 (0.93-1.08) H 02/07/18 04:55 APTT 29.0 Seconds (25.1-36.5) 02/03/18 23:00 - Constitutional Appears: Chronically Ill - Head Exam Head Exam: NORMAL INSPECTION - ENT Exam ENT Exam: Mucous Membranes Moist - Neck Exam Neck Exam: absent: Meningismus - Respiratory Exam Respiratory Exam: Decreased Breath Sounds - Cardiovascular Exam Cardiovascular Exam: +S1, +S2 - GI/Abdominal Exam GI & Abdominal Exam: Soft. absent: Tenderness - Extremities Exam Additional comments: left foot with dressings in place Assessment and Plan - Assessment and Plan (Free Text) Plan: Assessment Sepsis due to right lower lobe HCAP consider decubitus ulcer and left heel ulcer infection with MRSA history of left rectus sheath hematoma history of acute pancreatitis Stage 4 decubitus ulcer history of right lower lobe healthcare-associated pneumonia history of ESBL E. coli and Enterococcus UTI history of ESBL E. coli UTI atrial fibrillation cerebrovascular accident history of aortic dissection seizure disorder history of thrombocytopenia HTN hypercholesterolemia chronic pain syndrome history of decubitus ulcers chronic active hepatitis C Plan continue IV Vancomycin, Merrem and Zithromax day 5 to complete at least 7 days of therapy will continue to monitor clinically overall prognosis is poor
[2018-02-08] MEDS: Amino/Dext 5/20 1,000 ML IV SCH (18:14)
--- NOTE | 2018-02-08 20:19 | PN ---
DATE: 02/08/2018 PULMONARY PROGRESS NOTE REFERRING PHYSICIAN: Albin Forte MD. SUBJECTIVE: The patient is lying on the bed, head at 45 degrees, sleepy, arousable, has some cough. Refusing to use CPAP. No nausea. No vomiting. No diarrhea. Multiple pressure ulcers. PHYSICAL EXAMINATION: GENERAL: In no acute distress. VITAL SIGNS: Temperature is 98, heart rate is 82, respiratory rate is 18, blood pressure 179/80, pulse ox 95% on 2 L nasal cannula. HEENT: Small oral cavity. Crowded airway. NECK: Supple. No JVD. LUNGS: Scattered rhonchi. HEART: S1, S2. ABDOMEN: Soft, nontender. No organomegaly. EXTREMITIES: Multiple pressure ulcers. NEUROLOGIC: Sleepy, arousable, follows simple commands. MEDICATIONS: She is on Mucomyst inhaled twice a day, Ambien 5 mg at bedtime p.r.n., hydralazine 100 mg 3 times a day, aspirin 81 g daily, Catapres 0.1 mg every 6 hours p.r.n., clonidine patch weekly which is 0.3 mg, also getting Clinimix 42 mL per hour, Coumadin 0.5 mg, trazodone 50 mg at bedtime, Diovan 320 mg daily, DuoNeb 4 times a day, Keppra 500 mg twice a day, metoprolol tartrate 50 mg twice a day, mag oxide 400 mg twice a day, meropenem 1 g IV every 8 hours, oxycodone immediate release 10 mg every 8 hours p.r.n., Protonix 40 mg daily, Remeron 30 mg at bedtime, Tylenol p.r.n., vancomycin 1 g IV every 12 hours, and Zithromax 500 mg daily. LABORATORY DATA: Shows the wound culture has staph and E. coli. IMPRESSION AND PLAN: Chronic obstructive lung disease, may have sleep apnea syndrome, right lower lobe atelectasis, sacral ulcer, urinary tract infection, hypertension, may have oropharyngeal dysphagia, cannot rule out sleep apnea syndrome, refusing to use CPAP. We will repeat swallow evaluation and modify diet accordingly. Continue antibiotics, inhaled bronchodilators, supplemental oxygen, further aspiration precaution. Thank you and we will follow with you. Anushka Barreto MD [facility] # [phone]
--- NOTE | 2018-02-08 20:44 | PN ---
DATE: 02/06/2018 SUBJECTIVE: Patient had temperature of 101.4. She is harleen no respiratory distress. She has poor appetite. Getting the IV access for antibiotics, otherwise stable. PHYSICAL EXAMINATION: VITAL SIGNS: As follows: Temperature 101.4, heart rate 91, blood pressure 152/73, respirations 18, saturation 94% on 2 L. HEAD AND NECK: Normal. No JVD. No thyromegaly. CHEST: Clear bilaterally, although diminished breath sounds. CARDIAC: First sound and second sound normal. ABDOMEN: Soft, nondistended. EXTREMITIES: No edema. Contractures on the knee and the ankles with small ulcerations in the heel and a small sacral decubitus which was present on admission. NEUROLOGIC: Left hemiplegia, contracture of both lower extremities. Patient is bedridden and nonambulating. LABORATORY STUDIES: As follows: White count 10, hemoglobin 9.1, hematocrit 26.6, and platelet is 97. Her chemistry noted for sodium 142, potassium 3, chloride 109, bicarbonate 23, BUN 25, creatinine 0.7. IMPRESSION AND PLAN: 1. Fever. , probably due to pneumonia. Continue meropenem. Continue ID consultation. Patient is currently getting a dose of vancomycin and meropenem. She is stable otherwise. 2. Chronic back pain and chronic osteoarthritis, patient is a little bit on the surgical side. We will cut down the oxycodone to 10 mg every 8 hours, but she responded very well to her name and interact. 3. Chronic obstructive pulmonary disease, aspirated pneumonia, possible aspirations. We will do swallow evaluation and we will continue current therapy with IV Merrem and vancomycin and Zithromax to cover atypical including Legionella, stable. 4. Chronic atrial fibrillation, cerebrovascular accident, left hemiplegia. Patient is stable. Continue aspirin. Continue Coumadin, low dose. Patient does have a history of severe bleeding problem, which was life threatening. We will not give any high dose of Coumadin. We will continue current dose. Patient has a venous Doppler of both lower extremities, which was negative. 5. Hypertension, difficult to control. Continue Catapres 0.3 every 24 hours,clonidine 0.1 p.r.n. Continue Diovan 320, and patient also has been getting hydralazine 100 mg three times a day and metoprolol 50 mg b.i.d. Continue current therapy. Continue gastric and deep venous thrombosis prophylaxis. Patient is getting Remeron for appetite stimulant and due to her poor intake, we will start Clinimix, which is amino acid infusion. Continue current therapy. Albin Forte MD
--- NOTE | 2018-02-08 20:49 | PN ---
DATE: 02/07/2018 SUBJECTIVE: Patient is comfortable, no distress. Getting IV nutritions. She has no chest pain, no short of breath, and no respiratory distress. Afebrile. PHYSICAL EXAMINATION: VITAL SIGNS: Temperature 98, heart rate 92, blood pressure 148/77, saturating 95%. HEAD AND NECK: Normal. No JVD. No thyromegaly. CHEST: Clear. Diminished breath sounds bilaterally. CARDIAC: First sound and second sound normal. ABDOMEN: Soft, nontender. EXTREMITIES: No edema. Contractures, both knees and both ankles. SKIN: She has small healed ulcers and sacral decubitus. NEUROLOGIC: Left hemiplegia with contractures, both knees. LABORATORY STUDY: On 02/07/2018, white count 4.9, hemoglobin 8.8, hematocrit 26.7, platelet is 100. Chemistry shows sodium 147, potassium 4.1, chloride 116, bicarb 24, BUN 22, creatinine 0.6. Liver function test is normal. TSH 1.47. PT, PTT: PT/INR 14.6, INR 1.27, PTT 29. Patient has methicillin resistant in the sacral decubitus. She also has negative urine cultures and she has pneumonia. IMPRESSION AND PLAN: 1. Community-acquired pneumonia. Continue IV Zithromax, IV Merrem. 2. Sacral decubitus. Gram-positive methicillin-resistant Staphylococcus aureus. Vancomycin. Doing well. Patient has local wound care, seen by Dr. Barger, Podiatry as well as Wound Care team. Continue current local wound care and IV antibiotic. 3. Hypertension. Continue current blood pressure medicine. Metoprolol 50 b.i.d., hydralazine 100 three times a day, and clonidine patch 0.3 every 3 days and clonidine 0.1 every 6 hours. Patient is also getting Diovan 320. We will consider adding Norvasc based on her current antibiotic regimen. 4. Cerebrovascular accident, chronic atrial fibrillation, history of abdominal aortic aneurysm, chronic hepatitis C, thrombocytopenia, anemia. Patient is comfort care at this time with palliative care. No intervention. No colonoscopies at this time. Continue current management. We will follow up clinically. Albin Forte MD
[2018-02-09] MEDS: Vancomycin 1gm in NS 250ml 1 GM/250 ML BAG IVPB SCH ×2 (02:24→12:49)
[2018-02-09] MEDS: Meropenem IV 1 gm in NS 50 ML IVPB SCH ×3 (06:36→22:40)
--- NOTE | 2018-02-09 06:36 | CP.PCM.PN ---
Subjective - Date & Time of Evaluation Date of Evaluation: 02/09/18 Time of Evaluation: 06:15 - Subjective Subjective: Being turned by staff, awake, comfortable ,denies shortness of breath, denies chest pain Reason for consult and follow up: Cardiac evaluation, history of non obstructive coronary artery disease, Atrial fibrillation, cerebrovascular disease with left side hemiplegia, hypertension, hypercholesterolemia, abdominal aortic aneurysm. Seen and examined by me and Dr. Wilkerson Objective - Vital Signs/Intake and Output Vital Signs (last 24 hours): Temp Pulse Resp BP Pulse Ox 98.9 F 84 18 168/82 H 95 02/08/18 06:00 02/08/18 18:07 02/08/18 06:00 02/08/18 18:07 02/08/18 06:00 Intake and Output: 02/08/18 02/09/18 18:59 06:59 Intake Total 480 Output Total 900 Balance -420 - Medications Medications: Current Medications Acetaminophen (Tylenol 325mg Tab) 650 mg PO Q4 PRN PRN Reason: Fever >100.4 F Last Admin: 02/06/18 05:57 Dose: 650 mg Acetylcysteine (Acetylcysteine 20%) 3 ml IH BID [facility] Last Admin: 02/08/18 20:52 Dose: 3 ml Albuterol/Ipratropium (Duoneb 3 Mg/0.5 Mg (3 Ml) Ud) 3 ml IH QID [facility] Last Admin: 02/08/18 20:53 Dose: 3 ml Aspirin (Aspirin Chewable) 81 mg PO DAILY [facility] Last Admin: 02/08/18 10:35 Dose: 81 mg Clonidine HCl (Catapres-Tts3 0.3 Mg/24 Hr) 1 patch TD Q7D@1000 [facility] Clonidine HCl (Catapres) 0.1 mg PO Q6 PRN PRN Reason: systolic bp >170 Last Admin: 02/07/18 08:18 Dose: 0.1 mg Hydralazine HCl (Apresoline) 100 mg PO TID [facility] Last Admin: 02/08/18 18:07 Dose: 100 mg Azithromycin (Zithromax 500mg In Ns) 500 mg in 250 mls @ 167 mls/hr IVPB DAILY [facility] PRN Reason: Protocol Last Admin: 02/08/18 10:36 Dose: 167 mls/hr Meropenem (Merrem Iv 1 Gm Premix) 50 mls @ 100 mls/hr IVPB Q8 [facility] PRN Reason: Protocol Last Admin: 02/08/18 22:26 Dose: 100 mls/hr Vancomycin HCl (Vancomycin 1gm) 1 gm in 250 mls @ 167 mls/hr IVPB Q12H [facility] PRN Reason: Protocol Last Admin: 02/09/18 02:24 Dose: 167 mls/hr Amino Acids (Clinimix 5/20 % (1000 Ml)) 1,000 mls @ 42 mls/hr IV .[id number] [facility] Stop: 02/10/18 17:25 Last Admin: 02/08/18 18:14 Dose: 42 mls/hr Levetiracetam (Keppra) 500 mg PO BID [facility] Last Admin: 02/08/18 18:06 Dose: 500 mg Magnesium Oxide (Mag-Ox) 400 mg PO BID [facility] Last Admin: 02/08/18 18:06 Dose: 400 mg Metoprolol Tartrate (Lopressor) 50 mg PO BRKDIN [facility] Last Admin: 02/08/18 18:07 Dose: 50 mg Mirtazapine (Remeron) 30 mg PO HS [facility] Last Admin: 02/08/18 22:27 Dose: 30 mg Mupirocin (Bactroban Ointment) 0 gm TOP BID [facility] Last Admin: 02/08/18 18:08 Dose: 1 applic Oxycodone HCl (Oxycodone Immediate Release Tab) 10 mg PO Q8H PRN PRN Reason: Pain, severe (8-10) Last Admin: 02/07/18 20:50 Dose: 10 mg Pantoprazole Sodium (Protonix Ec Tab) 40 mg PO DAILY [facility] Last Admin: 02/08/18 10:36 Dose: 40 mg Trazodone HCl (Desyrel) 50 mg PO HS [facility] Last Admin: 02/08/18 22:26 Dose: 50 mg Valsartan (Diovan) 320 mg PO DAILY [facility] Last Admin: 02/08/18 10:35 Dose: 320 mg Warfarin Sodium (Coumadin) 0.5 mg PO 1800 [facility] PRN Reason: Protocol Last Admin: 02/08/18 18:06 Dose: 0.5 mg Zolpidem Tartrate (Ambien) 5 mg PO HS PRN; Protocol PRN Reason: Sleep Last Admin: 02/06/18 22:09 Dose: 5 mg - Labs Labs: 02/07/18 04:55 02/07/18 04:55 PT 14.6 SECONDS (9.4-12.5) H 02/07/18 04:55 INR 1.27 (0.93-1.08) H 02/07/18 04:55 APTT 29.0 Seconds (25.1-36.5) 02/03/18 23:00 - Constitutional Appears: No Acute Distress - Head Exam Head Exam: NORMAL INSPECTION - ENT Exam ENT Exam: Mucous Membranes Moist - Neck Exam Neck Exam: Normal Inspection - Respiratory Exam Respiratory Exam: Decreased Breath Sounds, Rhonchi, NORMAL BREATHING PATTERN - Cardiovascular Exam Cardiovascular Exam: +S1, +S2 Additional comments: no JVD - Exam Additional comments: sy catheter - Extremities Exam Extremities Exam: Normal Capillary Refill Additional comments: left side hemiplegia - Neurological Exam Neurological Exam: Alert, Awake, Oriented x3 - Psychiatric Exam Psychiatric exam: Normal Affect, Normal Mood - Skin Skin Exam: Intact, Normal Color, Warm Additional comments: sacral decubitus prior to admission Assessment and Plan - Assessment and Plan (Free Text) Assessment: IMPRESSION: A 77 year old female with history of atrial fibrillation, hypertension,hypercholesterolemia,cerebrovascular accident, non obstructive coronary artery disease ( last cath 2013) history of abdominal aortic dissection, endovascular leak, seizure disorder, history of thrombocytopenia, chronic pain syndrome, history of decubitus ulcers, Chronic active hepatitis C, CVA with left hemiplegia, urinary tract infection ,history of ESBL-producing E. coli, sy catheter, history of pneumonia. Right lower lobe pneumonia, sacral decubitus positive for MRSA. Plan: Stable cardiac status Feeling better On ASA 81 mg daily, Catapres 0.3 mg patch daily,Hydralazine 100 mg TID, Lopressor 50 mg BID, Diovan 320 mg daily, Coumadin 0.5 mg daily (low dose due to history of bleeding) On contact Isolation for sacral decubitus positive for MRSA Continue IV antibiotics as ordered Followed up by Infectious disease Nutritional support Continue current medications Continue current treatment Will follow up Plan and treatment discussed with Dr. Wilkerson
[2018-02-09] MEDS: Acetylcysteine 20% Inhal Soln (4ml) IH SCH ×2 (08:06→20:05)
[2018-02-09] MEDS: Albuterol-Ipratrop 3 mg / 0.5 (3 ml) UD IH SCH ×4 (08:07→20:05)
--- NOTE | 2018-02-09 09:23 | CON ---
DATE: 02/07/2018 This is an addendum to the consult dictated by SABINA Delacruz. I personally examined this patient and agree with Devika Ayoub' assessment and plan. The patient has multiple comorbidities and is failing to thrive. Her prognosis is extremely poor, may need to consider Palliative Care. Klever Clarke MD
[2018-02-09] MEDS: Magnesium Oxide 400 mg Tab UD PO SCH ×2 (09:40→18:58)
[2018-02-09] MEDS: Pantoprazole 40 mg EC Tab PO SCH (09:40)
[2018-02-09] MEDS: levETIRAcetam 500 mg/5ml UD cups PO SCH ×2 (09:41→18:54)
[2018-02-09] MEDS: Azithromycin 500MG/NS 250ml 500 MG/250 ML BAG IVPB SCH (09:41)
--- NOTE | 2018-02-09 09:53 | PQF SEPSIS ---
This form is a permanent part of the medical record Dr. Forte, Patient admitted with pneumonia and MRSA infected sacral and left heel wounds. Noted to have fever on and off, had leukocytosis at one point, tachycardia. ID cost consultant notes that sepsis is present. Please document if you agree with this diagnosis, ruled out. Also please clarify your note for "aspiration pneumonia". Was this an aspiration pneumonia present? Clarification of your documentation is requested to better reflect the severity of illness and intensity of treatment of your patient. Indicators present [x] Temp < 96.8 or > 100.4 [x] WBC count > 12,000/mm3 or <000/mm3 or 10% immature neutrophils [x] Heart Rate > 90 [] Respiratory Rate > 20 [x] Fever or hypothermia [] Chills [] Positive blood cultures [] Hypotension [] Metabolic acidosis (Elevated lactate level, anion gap or reduced blood pH) [] Acute confusion /Altered Mental Status [] Shock [] Other: [] MRSA sacral wound culture Location in the medical record that reflects the above clinical findings: [] Treatment Provided: [] PHYSICIAN'S RESPONSE Based on your medical judgment of the clinical indicators outlined above, are you treating this patient for a known or suspected: [] Sepsis / Septicemia Please specify organism if known [] [] SIRS (Systemic Inflammatory Response Syndrome) [] Severe Sepsis (Sepsis with Associated Organ Dysfunction) [] Fever of Unknown Origin [] Other, please indicate: [] [] If Unable to Determine, please check the box, sign and date. Present On Admission (POA) Indicator: [] Present at the time of admission [] Not present at the time of admission [] Clinically Undetermined In responding to this query, please exercise your independent professional judgment. The fact that a question is asked does not imply that any particular answer is desired or expected. Thank you for your clarification on this documentation. If you have any questions please call:[ ] * Thank you, [ ]Anirudh Joaquin [facility] #[id number] security incident response specialist JAMES
--- NOTE | 2018-02-09 10:05 | PN ---
DATE: 02/07/2018 SUBJECTIVE: A 77-year-old female seen at bedside for continued evaluation and management of the superficial left heel ulceration. The patient has been afebrile and is not reporting any pain in the heel. PHYSICAL EXAMINATION VITAL SIGNS: Blood pressure of 158/74, respiratory rate of 20, pulse rate of 80. EXTREMITIES: Nonpalpable pedal pulses noted bilaterally. Lower extremity skin presents thin, shining, discolored bilaterally. Absent pedal hair growth noted bilaterally. The patient is unable to detect 5.07 g monofilament wire testing bilaterally. Capillary filling time is delayed x10. There is noted to be a superficial non-stageable ulceration on the left heel. Base of the ulcer is primarily granular. There is noted to be scant clear serous drainage. The wound does not probe to the tendon or bone. There is no purulence to suggest underlying abscess formation. There is no localized or ascending cellulitis noted. LABORATORY DATA: Reveal a white count of 5.9, hemoglobin of 8.8, hematocrit 26.7, platelet count of 100. Microbiology report reveals MRSA growth on the left heel ulcer. ASSESSMENT: Non-stageable superficial left heel ulceration with methicillin-resistant Staphylococcus aureus growth noted. PLAN: The patient's wound was cleansed with normal sterile saline. An application of Bactroban and a dry sterile dressing was applied to the left heel. I had ordered foam Multi-Podus boots, however, they are not at bedside. X-rays of the left heel were ordered, however, there have not been performed as of yet. Infectious Disease note was read and appreciated. We will continue with the IV antibiotics as per Infectious Disease. The patient will be seen and followed daily. Overall, her wound is stable and she is not a surgical candidate. Richard Barger DPM
[2018-02-09 12:14] LABS: HEMOGLOBIN 8.8 g/dL (12.0-16.0); MEAN CELL VOLUME 95.3 fl (80.0-105.0); MEAN CORPUSCULAR HEMOGLOBIN 31.9 pg (25.0-35.0); MEAN CORPUSCULAR HGB CONC 33.5 g/dl (31.0-37.0); MEAN PLATELET VOLUME 8.9 fl (7.0-11.0); RBC 2.76 10^6/uL (3.5-6.1); RED CELL DISTRIBUTION WIDTH 12.6 % (11.5-14.5); WHITE BLOOD COUNT 8.9 10^3/ul (4.5-11.0)
[2018-02-09 12:33] LABS: ALB/GLOB RATIO 0.9 (1.1-1.8); ALBUMIN 2.4 g/dL (3.0-4.8); ALT/SGPT 31 U/L (7-56); AST/SGOT 42 U/L (14-36); BLOOD UREA NITROGEN 17 mg/dL (7-21); GFR AFRICAN-AMERICAN > 60; GFR NON-AFRICAN AMERICAN > 60
[2018-02-09] MEDS ORDERED: Potassium Chloride 20 mEq/15 ml LIQ UD PO STA (13:35)
--- NOTE | 2018-02-09 15:19 | CP.PCM.PN ---
<Suzie Rojas - Last Filed: 02/09/18 15:13> Subjective - Date & Time of Evaluation Date of Evaluation: 02/09/18 Time of Evaluation: 15:13 - Subjective Subjective: Podiatry progress note for Dr. Barger/Dr. Arteaga: 77 y/o female seen at bedside for left heel ulceration, well known to podiatry team. Patient resting comfortably in bed in NAD. Patient's multipodus boots are intact to bilateral lower extremities. Denies of any pain in her feet today. She denies any acute events overnight. Patient denies n/f/v/d/c/sob. Denies of having any new pedal complains at this time. Objective - Vital Signs/Intake and Output Vital Signs (last 24 hours): Temp Pulse Resp BP Pulse Ox 98.9 F 84 18 147/67 95 02/08/18 06:00 02/08/18 18:07 02/08/18 06:00 02/09/18 14:58 02/08/18 06:00 Intake and Output: 02/09/18 02/09/18 06:59 18:59 Intake Total 480 Output Total 900 Balance -420 - Medications Medications: Current Medications Acetaminophen (Tylenol 325mg Tab) 650 mg PO Q4 PRN PRN Reason: Fever >100.4 F Last Admin: 02/06/18 05:57 Dose: 650 mg Acetylcysteine (Acetylcysteine 20%) 3 ml IH BIDRESP [facility] Albuterol/Ipratropium (Duoneb 3 Mg/0.5 Mg (3 Ml) Ud) 3 ml IH QIDRESP [facility] Last Admin: 02/09/18 15:04 Dose: 3 ml Amlodipine Besylate (Norvasc) 5 mg PO DAILY [facility] Last Admin: 02/09/18 09:40 Dose: 5 mg Aspirin (Aspirin Chewable) 81 mg PO DAILY [facility] Last Admin: 02/09/18 09:40 Dose: 81 mg Azithromycin (Zithromax) 500 mg PO DAILY [facility] Clonidine HCl (Catapres-Tts3 0.3 Mg/24 Hr) 1 patch TD Q7D@1000 [facility] Clonidine HCl (Catapres) 0.1 mg PO Q6 PRN PRN Reason: systolic bp >170 Last Admin: 02/07/18 08:18 Dose: 0.1 mg Hydralazine HCl (Apresoline) 100 mg PO TID [facility] Last Admin: 02/09/18 14:58 Dose: 100 mg Meropenem (Merrem Iv 1 Gm Premix) 50 mls @ 100 mls/hr IVPB Q8 [facility] PRN Reason: Protocol Last Admin: 02/09/18 14:57 Dose: 100 mls/hr Vancomycin HCl (Vancomycin 1gm) 1 gm in 250 mls @ 167 mls/hr IVPB Q12H [facility] PRN Reason: Protocol Last Admin: 02/09/18 12:49 Dose: 167 mls/hr Amino Acids (Clinimix 5/20 % (1000 Ml)) 1,000 mls @ 42 mls/hr IV .[id number] [facility] Stop: 02/10/18 17:25 Last Admin: 02/08/18 18:14 Dose: 42 mls/hr Levetiracetam (Keppra) 500 mg PO BID [facility] Last Admin: 02/09/18 09:41 Dose: 500 mg Magnesium Oxide (Mag-Ox) 400 mg PO BID [facility] Last Admin: 02/09/18 09:40 Dose: 400 mg Metoprolol Tartrate (Lopressor) 50 mg PO BRKDIN [facility] Last Admin: 02/09/18 09:40 Dose: 50 mg Mirtazapine (Remeron) 30 mg PO HS [facility] Last Admin: 02/08/18 22:27 Dose: 30 mg Mupirocin (Bactroban Ointment) 0 gm TOP BID [facility] Last Admin: 02/08/18 18:08 Dose: 1 applic Oxycodone HCl (Oxycodone Immediate Release Tab) 10 mg PO Q8H PRN PRN Reason: Pain, severe (8-10) Last Admin: 02/07/18 20:50 Dose: 10 mg Pantoprazole Sodium (Protonix Ec Tab) 40 mg PO DAILY [facility] Last Admin: 02/09/18 09:40 Dose: 40 mg Potassium Chloride (K-Dur 20 Meq Er Tab) 40 meq PO ONCE ONE Stop: 02/09/18 17:01 Trazodone HCl (Desyrel) 50 mg PO HS [facility] Last Admin: 02/08/18 22:26 Dose: 50 mg Valsartan (Diovan) 320 mg PO DAILY [facility] Last Admin: 02/09/18 09:41 Dose: 320 mg Warfarin Sodium (Coumadin) 0.5 mg PO 1800 [facility] PRN Reason: Protocol Last Admin: 02/08/18 18:06 Dose: 0.5 mg Zolpidem Tartrate (Ambien) 5 mg PO HS PRN; Protocol PRN Reason: Sleep Last Admin: 02/06/18 22:09 Dose: 5 mg - Labs Labs: 02/09/18 11:51 02/09/18 11:51 PT 14.6 SECONDS (9.4-12.5) H 02/07/18 04:55 INR 1.27 (0.93-1.08) H 02/07/18 04:55 APTT 29.0 Seconds (25.1-36.5) 02/03/18 23:00 - Constitutional Appears: Well, Non-toxic, No Acute Distress - Extremities Exam Additional comments: Left lower extremity focused: VASC: nonpalpable pedal pulses, Temp gradient: warm to cool from proximal to distal, Cap refill time: < 4 sec to all digits, no pitting or non-pitting edema noted DERM: mild erythema to plantar and posterior heel, skin appears thin, shiny and discolored, nails are elongated, thickened and dystrophic, superficial nonstageable ulceration to the left heel with base of primary granulation tissue , fibrous border, minimal serous drainage noted, no purulence, no fluctaunce, no ascending cellulitis, no probe to tendon or bone NEURO: grossly diminished ORTHO: moderate pain on palpation to plantar foot - Neurological Exam Neurological Exam: Alert, Awake, Oriented x3 - Psychiatric Exam Psychiatric exam: Normal Affect, Normal Mood Assessment and Plan - Assessment and Plan (Free Text) Assessment: 77 y/o female seen at bedside for left heel nonstageable ulceration with MRSA Plan: Patient seen and evaluated with attending Dr. Arteaga Labs, charts and vitals reviewed; afebrile, no leukocytosis x ray of left foot shows cellulitis, no acute evidence of OM Applied maxorb, optidoam, multipodus boots to lower extremity Cont. IV abx as recommended podiatry will continue to follow while patient remains in house <Bettie Arteaga - Last Filed: 02/15/18 17:40> Objective - Vital Signs/Intake and Output Vital Signs (last 24 hours): Temp Pulse Resp BP Pulse Ox 97.3 F L 75 20 152/70 H 97 02/11/18 08:02 02/11/18 10:23 02/11/18 08:02 02/11/18 10:23 02/11/18 08:02 - Labs Labs: 02/09/18 11:51 02/10/18 06:00 PT 14.6 SECONDS (9.4-12.5) H 02/07/18 04:55 INR 1.27 (0.93-1.08) H 02/07/18 04:55 APTT 29.0 Seconds (25.1-36.5) 02/03/18 23:00
[2018-02-09] MEDS: Amino/Dext 5/20 1,000 ML IV SCH (16:47)
--- NOTE | 2018-02-09 16:48 | CP.PCM.PN ---
Subjective - Date & Time of Evaluation Date of Evaluation: 02/09/18 Time of Evaluation: 10:35 - Subjective Subjective: Seen and examined at the bedside earlier this morning, chart was reviewed. No acute overnight events reported. Patient no appetite this morning. Staff enocuraging patient to eat at bedside. Patient denies nausea, vomiting, or abdominal pain. No reports of diarrhea. Objective - Vital Signs/Intake and Output Vital Signs (last 24 hours): Temp Pulse Resp BP Pulse Ox 98.9 F 20 L 86 H 158/84 H 97 02/09/18 16:32 02/09/18 16:32 02/09/18 16:32 02/09/18 16:32 02/09/18 16:32 Intake and Output: 02/09/18 02/09/18 06:59 18:59 Intake Total 480 Output Total 900 Balance -420 - Medications Medications: Current Medications Acetaminophen (Tylenol 325mg Tab) 650 mg PO Q4 PRN PRN Reason: Fever >100.4 F Last Admin: 02/06/18 05:57 Dose: 650 mg Acetylcysteine (Acetylcysteine 20%) 3 ml IH BIDRESP [facility] Albuterol/Ipratropium (Duoneb 3 Mg/0.5 Mg (3 Ml) Ud) 3 ml IH QIDRESP [facility] Last Admin: 02/09/18 15:04 Dose: 3 ml Amlodipine Besylate (Norvasc) 5 mg PO DAILY [facility] Last Admin: 02/09/18 09:40 Dose: 5 mg Aspirin (Aspirin Chewable) 81 mg PO DAILY [facility] Last Admin: 02/09/18 09:40 Dose: 81 mg Azithromycin (Zithromax) 500 mg PO DAILY [facility] Clonidine HCl (Catapres-Tts3 0.3 Mg/24 Hr) 1 patch TD Q7D@1000 [facility] Clonidine HCl (Catapres) 0.1 mg PO Q6 PRN PRN Reason: systolic bp >170 Last Admin: 02/07/18 08:18 Dose: 0.1 mg Hydralazine HCl (Apresoline) 100 mg PO TID [facility] Last Admin: 02/09/18 14:58 Dose: 100 mg Meropenem (Merrem Iv 1 Gm Premix) 50 mls @ 100 mls/hr IVPB Q8 [facility] PRN Reason: Protocol Last Admin: 02/09/18 14:57 Dose: 100 mls/hr Vancomycin HCl (Vancomycin 1gm) 1 gm in 250 mls @ 167 mls/hr IVPB Q12H [facility] PRN Reason: Protocol Last Admin: 02/09/18 12:49 Dose: 167 mls/hr Amino Acids (Clinimix 5/20 % (1000 Ml)) 1,000 mls @ 42 mls/hr IV .[id number] [facility] Stop: 02/10/18 17:25 Last Admin: 02/08/18 18:14 Dose: 42 mls/hr Levetiracetam (Keppra) 500 mg PO BID [facility] Last Admin: 02/09/18 09:41 Dose: 500 mg Magnesium Oxide (Mag-Ox) 400 mg PO BID [facility] Last Admin: 02/09/18 09:40 Dose: 400 mg Metoprolol Tartrate (Lopressor) 50 mg PO BRKDIN [facility] Last Admin: 02/09/18 09:40 Dose: 50 mg Mirtazapine (Remeron) 30 mg PO HS [facility] Last Admin: 02/08/18 22:27 Dose: 30 mg Mupirocin (Bactroban Ointment) 0 gm TOP BID [facility] Last Admin: 02/09/18 09:40 Dose: 1 applic Oxycodone HCl (Oxycodone Immediate Release Tab) 10 mg PO Q8H PRN PRN Reason: Pain, severe (8-10) Last Admin: 02/07/18 20:50 Dose: 10 mg Pantoprazole Sodium (Protonix Ec Tab) 40 mg PO DAILY [facility] Last Admin: 02/09/18 09:40 Dose: 40 mg Potassium Chloride (K-Dur 20 Meq Er Tab) 40 meq PO ONCE ONE Stop: 02/09/18 17:01 Trazodone HCl (Desyrel) 50 mg PO HS [facility] Last Admin: 02/08/18 22:26 Dose: 50 mg Valsartan (Diovan) 320 mg PO DAILY [facility] Last Admin: 02/09/18 09:41 Dose: 320 mg Warfarin Sodium (Coumadin) 0.5 mg PO 1800 [facility] PRN Reason: Protocol Last Admin: 02/08/18 18:06 Dose: 0.5 mg Zolpidem Tartrate (Ambien) 5 mg PO HS PRN; Protocol PRN Reason: Sleep Last Admin: 02/06/18 22:09 Dose: 5 mg - Labs Labs: 02/09/18 11:51 02/09/18 11:51 PT 14.6 SECONDS (9.4-12.5) H 02/07/18 04:55 INR 1.27 (0.93-1.08) H 02/07/18 04:55 APTT 29.0 Seconds (25.1-36.5) 02/03/18 23:00 - Constitutional Appears: No Acute Distress - Head Exam Head Exam: NORMOCEPHALIC - Eye Exam Eye Exam: Normal appearance. absent: Scleral icterus - ENT Exam ENT Exam: Mucous Membranes Moist - Respiratory Exam Respiratory Exam: Decreased Breath Sounds, NORMAL BREATHING PATTERN. absent: Respiratory Distress - Cardiovascular Exam Cardiovascular Exam: +S1, +S2 - GI/Abdominal Exam GI & Abdominal Exam: Soft, Normal Bowel Sounds. absent: Guarding, Tenderness, Rebound - Extremities Exam Extremities Exam: Pedal Edema - Neurological Exam Neurological Exam: Alert, Awake, Oriented x3 - Skin Skin Exam: Dry, Warm Assessment and Plan - Assessment and Plan (Free Text) Assessment: Assessment: Left lower lobe pneumonia Poor appetite Chronic anemia History CVA with left hemiparesis Hypertension History of atrial fibrillation Dementia Plan: on TPN Encourage oral intake On IV /oral antibiotics On PPI DVT prophylaxis, as SCD boots as per PCP progress note family does not want PEG tube, patient on palliative care, conservative mgt. no planned GI interventions planned. Seen and discussed w/ Dr. Galindo.
[2018-02-09] MEDS ORDERED: Potassium Chloride 20 mEq ER Tab PO ONE (17:00)
--- NOTE | 2018-02-09 18:57 | CP.PCM.PN ---
Subjective - Date & Time of Evaluation Date of Evaluation: 02/09/18 Time of Evaluation: 11:10 - Subjective Subjective: Comfortable in bed, no fevers. Objective - Vital Signs/Intake and Output Vital Signs (last 24 hours): Temp Pulse Resp BP Pulse Ox 98.9 F 84 18 168/82 H 95 02/08/18 06:00 02/08/18 18:07 02/08/18 06:00 02/08/18 18:07 02/08/18 06:00 Intake and Output: 02/09/18 02/09/18 06:59 18:59 Intake Total 480 Output Total 900 Balance -420 - Medications Medications: Current Medications Acetaminophen (Tylenol 325mg Tab) 650 mg PO Q4 PRN PRN Reason: Fever >100.4 F Last Admin: 02/06/18 05:57 Dose: 650 mg Acetylcysteine (Acetylcysteine 20%) 3 ml IH BIDRESP [facility] Albuterol/Ipratropium (Duoneb 3 Mg/0.5 Mg (3 Ml) Ud) 3 ml IH QID [facility] Last Admin: 02/09/18 08:07 Dose: 3 ml Amlodipine Besylate (Norvasc) 5 mg PO DAILY [facility] Aspirin (Aspirin Chewable) 81 mg PO DAILY [facility] Last Admin: 02/08/18 10:35 Dose: 81 mg Clonidine HCl (Catapres-Tts3 0.3 Mg/24 Hr) 1 patch TD Q7D@1000 [facility] Clonidine HCl (Catapres) 0.1 mg PO Q6 PRN PRN Reason: systolic bp >170 Last Admin: 02/07/18 08:18 Dose: 0.1 mg Hydralazine HCl (Apresoline) 100 mg PO TID [facility] Last Admin: 02/08/18 18:07 Dose: 100 mg Azithromycin (Zithromax 500mg In Ns) 500 mg in 250 mls @ 167 mls/hr IVPB DAILY [facility] PRN Reason: Protocol Last Admin: 02/08/18 10:36 Dose: 167 mls/hr Meropenem (Merrem Iv 1 Gm Premix) 50 mls @ 100 mls/hr IVPB Q8 [facility] PRN Reason: Protocol Last Admin: 02/09/18 06:36 Dose: 100 mls/hr Vancomycin HCl (Vancomycin 1gm) 1 gm in 250 mls @ 167 mls/hr IVPB Q12H [facility] PRN Reason: Protocol Last Admin: 02/09/18 02:24 Dose: 167 mls/hr Amino Acids (Clinimix 5/20 % (1000 Ml)) 1,000 mls @ 42 mls/hr IV .[id number] [facility] Stop: 02/10/18 17:25 Last Admin: 02/08/18 18:14 Dose: 42 mls/hr Levetiracetam (Keppra) 500 mg PO BID [facility] Last Admin: 02/08/18 18:06 Dose: 500 mg Magnesium Oxide (Mag-Ox) 400 mg PO BID [facility] Last Admin: 02/08/18 18:06 Dose: 400 mg Metoprolol Tartrate (Lopressor) 50 mg PO BRKDIN [facility] Last Admin: 02/08/18 18:07 Dose: 50 mg Mirtazapine (Remeron) 30 mg PO HS [facility] Last Admin: 02/08/18 22:27 Dose: 30 mg Mupirocin (Bactroban Ointment) 0 gm TOP BID [facility] Last Admin: 02/08/18 18:08 Dose: 1 applic Oxycodone HCl (Oxycodone Immediate Release Tab) 10 mg PO Q8H PRN PRN Reason: Pain, severe (8-10) Last Admin: 02/07/18 20:50 Dose: 10 mg Pantoprazole Sodium (Protonix Ec Tab) 40 mg PO DAILY [facility] Last Admin: 02/08/18 10:36 Dose: 40 mg Trazodone HCl (Desyrel) 50 mg PO HS [facility] Last Admin: 02/08/18 22:26 Dose: 50 mg Valsartan (Diovan) 320 mg PO DAILY [facility] Last Admin: 02/08/18 10:35 Dose: 320 mg Warfarin Sodium (Coumadin) 0.5 mg PO 1800 [facility] PRN Reason: Protocol Last Admin: 02/08/18 18:06 Dose: 0.5 mg Zolpidem Tartrate (Ambien) 5 mg PO HS PRN; Protocol PRN Reason: Sleep Last Admin: 02/06/18 22:09 Dose: 5 mg - Labs Labs: 02/07/18 04:55 02/07/18 04:55 PT 14.6 SECONDS (9.4-12.5) H 02/07/18 04:55 INR 1.27 (0.93-1.08) H 02/07/18 04:55 APTT 29.0 Seconds (25.1-36.5) 02/03/18 23:00 - Constitutional Appears: Chronically Ill - Head Exam Head Exam: NORMAL INSPECTION - Neck Exam Neck Exam: absent: Meningismus - Respiratory Exam Respiratory Exam: Decreased Breath Sounds - Cardiovascular Exam Cardiovascular Exam: +S1, +S2 - GI/Abdominal Exam GI & Abdominal Exam: Soft. absent: Tenderness Assessment and Plan - Assessment and Plan (Free Text) Plan: Assessment Sepsis due to right lower lobe HCAP consider decubitus ulcer and left heel ulcer infection with MRSA history of left rectus sheath hematoma history of acute pancreatitis Stage 4 decubitus ulcer history of right lower lobe healthcare-associated pneumonia history of ESBL E. coli and Enterococcus UTI history of ESBL E. coli UTI atrial fibrillation cerebrovascular accident history of aortic dissection seizure disorder history of thrombocytopenia HTN hypercholesterolemia chronic pain syndrome history of decubitus ulcers chronic active hepatitis C Plan continue IV Vancomycin, Merrem and Zithromax day 6 to complete at least 7 days of therapy will continue to monitor clinically overall prognosis is poor
--- NOTE | 2018-02-09 23:05 | PN ---
DATE: 02/09/2018 SUBJECTIVE: The patient is stable. No new complaint. The patient is able to swallow, but no enough nutrition. Discussed with the nurse practitioner the case and currently on IV antibiotics, though she is more than 24 hours of IV antibiotic, then we have to switch p.o. At this time, the patient is stable. PHYSICAL EXAMINATION: VITAL SIGNS: Her vital signs are as follow; temperature 98, heart rate is 84, blood pressure 147/67, respirations 18, saturation 97% on 2 L of nasal cannula. HEAD AND NECK: Normal. No JVD. No thyromegaly. CHEST: Clear. CARDIAC: First sound and second sound normal. ABDOMEN: Soft, nontender. EXTREMITIES: Contractures, both legs. Ankle edema with both knee contractures and heel and ankle. NEUROLOGIC: Also, the patient has left hemiplegia, but she opens her eyes. She is alert, awake. LABORATORY DATA: Her laboratory study shows sodium 139, potassium 3, chloride 108, bicarb 23, BUN 17, creatinine 0.4. Liver function test is normal except AST is slightly elevated at 42. Other liver enzyme is normal. CBC shows white count 8.9, hemoglobin 8.8, hematocrit 26.3, platelets 117. IMPRESSION AND PLAN: 1. Left lower lobe pneumonia, community acquired. The patient does have history of multiple admissions to the hospital. Continue meropenem. Continue azithromycin. The patient has negative Legionella serology. She seems stable, afebrile, doing well. 2. Decubitus with methicillin-resistant Staphylococcus aureus. Continue vancomycin plus local wound care. 3. Hypertension, chronic hepatitis C, thrombocytopenia, anemia. Continue current therapy. She is stable. No bleeding. Continue low-dose Coumadin plus baby aspirin. 4. Coronary artery disease, chronic atrial fibrillation, history of cerebrovascular accident. Continue Coumadin 0.5 mg plus aspirin and monitor hemoglobin. 5. Poor p.o. intake. She is eating, but not enough. Continue Remeron. We will discuss with the family about any intervention like feeding. The patient really has multiple medical problems. We will keep more of palliative care consultation on the case and we will talk to the family about the code status, whether they need any feeding tube or not. We will continue that and we will follow up clinically. 6. Hypertension. We will add Norvasc 5 mg daily in addition to the current regimen and we will follow up clinically. Continue Diovan. Continue metoprolol, clonidine p.r.n. and hydralazine. 7. The patient does have history of underlying chronic obstructive pulmonary disease. Continue inhaled bronchodilators, Mucomyst. The patient was seen by [employer], Dr. Barreto and for underlying depression, continue Desyrel, Remeron and for her underlying seizure, continue Keppra 500 b.i.d. The patient seems stable. For electrolyte abnormalities, potassium 40 mEq p.o. x1 was given. We will repeat lab in the morning. Continue current IV antibiotic for now. We will discuss with the family about discharge plan. Albin Forte MD
[2018-02-10] MEDS: Vancomycin 1gm in NS 250ml 1 GM/250 ML BAG IVPB SCH ×2 (02:45→15:13)
--- NOTE | 2018-02-10 03:23 | PN ---
DATE: 02/09/2018 SUBJECTIVE: Patient is comfortable, stable, in no distress, IV PPN, and IV antibiotics. She has no new complaints. She is comfortable. PHYSICAL EXAMINATION: VITAL SIGNS: Temperature 98, heart rate 89, blood pressure 160/73, respirations 18. HEAD AND NECK: Normal. No JVD. No thyromegaly. CHEST: Clear. Diminished breath sounds. CARDIAC: First sound and second sound normal. ABDOMEN: Soft, nontender. EXTREMITIES: There is bilateral ankle swelling and bilateral knee contractures, and ankle contractures. NEUROLOGIC: Patient is bedridden. She has left hemiplegia, but she has opened her eyes, respond to her name and she can talk. LABORATORY DATA: Laboratory studies show sodium 147, potassium 4.1, chloride 115, bicarbonate 24, BUN 22, creatinine 0.6. IMPRESSION AND PLAN: 1. Community acquired pneumonia. Continue Zithromax plus meropenem. 2. Patient has also gotten Klebsiella . She has methicillin-resistant Staphylococcus aureus from the wound culture. Continue vancomycin, local wound care. 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 3. Chronic obstructive pulmonary disease. Continue bronchodilators, seems doing well. 4. Hypertension, still running on the high side. We will consider adding Norvasc 5 mg daily. Continue also Diovan. Continue metoprolol and hydralazine. 5. Cerebrovascular accident, chronic hepatitis C, left hemiplegia, generalized weakness, chronic atrial fibrillation, history of abdominal aortic aneurysm. Continue Coumadin 0.5 mg daily plus baby aspirin 81 mg. Patient has negative venous Doppler studies. Continue current therapy. We will keep the Coumadin low. The patient does have history of severe bleeding. We will maintain the patient on current medication. 6. History of seizure disorder, stable on Keppra. 7. Depression. Continue trazodone 50 mg. 8. Poor appetite. We will continue Remeron 30 mg. We will consider adding other than her total parenteral nutrition. We will discuss with family about her feeding tube; however, the family did hold off on any of these feeding tube, but will consider it again since the patient now has no ascites. We will discuss further with the family. Albin Forte MD
[2018-02-10] MEDS: Meropenem IV 1 gm in NS 50 ML IVPB SCH ×3 (05:41→22:21)
[2018-02-10] MEDS: oxyCODONE 10 mg Immediate Release Tab PO PRN (05:55)
--- NOTE | 2018-02-10 06:57 | CP.PCM.PN ---
Subjective - Date & Time of Evaluation Date of Evaluation: 02/10/18 Time of Evaluation: 06:10 - Subjective Subjective: Awake, smiling, comfortable ,denies shortness of breath, denies chest pain Reason for consult and follow up: Cardiac evaluation, history of non obstructive coronary artery disease, Atrial fibrillation, cerebrovascular disease with left side hemiplegia, hypertension, hypercholesterolemia, abdominal aortic aneurysm. Seen and examined by me and Dr. Wilkerson Objective - Vital Signs/Intake and Output Vital Signs (last 24 hours): Temp Pulse Resp BP Pulse Ox 98.9 F 20 L 86 H 158/84 H 97 02/09/18 16:32 02/09/18 16:32 02/09/18 16:32 02/09/18 16:32 02/09/18 16:32 Intake and Output: 02/09/18 02/10/18 18:59 06:59 Intake Total 360 Output Total 800 Balance -440 - Medications Medications: Current Medications Acetaminophen (Tylenol 325mg Tab) 650 mg PO Q4 PRN PRN Reason: Fever >100.4 F Last Admin: 02/06/18 05:57 Dose: 650 mg Acetylcysteine (Acetylcysteine 20%) 3 ml IH BIDRESP [facility] Last Admin: 02/09/18 20:05 Dose: 3 ml Albuterol/Ipratropium (Duoneb 3 Mg/0.5 Mg (3 Ml) Ud) 3 ml IH QIDRESP [facility] Last Admin: 02/09/18 20:05 Dose: 3 ml Amlodipine Besylate (Norvasc) 5 mg PO DAILY [facility] Last Admin: 02/09/18 09:40 Dose: 5 mg Aspirin (Aspirin Chewable) 81 mg PO DAILY [facility] Last Admin: 02/09/18 09:40 Dose: 81 mg Azithromycin (Zithromax) 500 mg PO DAILY [facility] Clonidine HCl (Catapres-Tts3 0.3 Mg/24 Hr) 1 patch TD Q7D@1000 [facility] Clonidine HCl (Catapres) 0.1 mg PO Q6 PRN PRN Reason: systolic bp >170 Last Admin: 02/07/18 08:18 Dose: 0.1 mg Hydralazine HCl (Apresoline) 100 mg PO TID [facility] Last Admin: 02/09/18 18:51 Dose: 100 mg Meropenem (Merrem Iv 1 Gm Premix) 50 mls @ 100 mls/hr IVPB Q8 [facility] PRN Reason: Protocol Last Admin: 02/10/18 05:41 Dose: 100 mls/hr Vancomycin HCl (Vancomycin 1gm) 1 gm in 250 mls @ 167 mls/hr IVPB Q12H [facility] PRN Reason: Protocol Last Admin: 02/10/18 02:45 Dose: 167 mls/hr Amino Acids (Clinimix 5/20 % (1000 Ml)) 1,000 mls @ 42 mls/hr IV .[id number] [facility] Stop: 02/10/18 17:25 Last Admin: 02/09/18 16:47 Dose: 42 mls/hr Levetiracetam (Keppra) 500 mg PO BID [facility] Last Admin: 02/09/18 18:54 Dose: 500 mg Magnesium Oxide (Mag-Ox) 400 mg PO BID [facility] Last Admin: 02/09/18 18:58 Dose: 400 mg Metoprolol Tartrate (Lopressor) 50 mg PO BRKDIN [facility] Last Admin: 02/09/18 18:57 Dose: 50 mg Mirtazapine (Remeron) 30 mg PO HS [facility] Last Admin: 02/09/18 22:40 Dose: 30 mg Mupirocin (Bactroban Ointment) 0 gm TOP BID [facility] Last Admin: 02/09/18 18:52 Dose: 1 applic Oxycodone HCl (Oxycodone Immediate Release Tab) 10 mg PO Q8H PRN PRN Reason: Pain, severe (8-10) Last Admin: 02/10/18 05:55 Dose: 10 mg Pantoprazole Sodium (Protonix Ec Tab) 40 mg PO DAILY [facility] Last Admin: 02/09/18 09:40 Dose: 40 mg Trazodone HCl (Desyrel) 50 mg PO HS [facility] Last Admin: 02/09/18 22:40 Dose: 50 mg Valsartan (Diovan) 320 mg PO DAILY [facility] Last Admin: 02/09/18 09:41 Dose: 320 mg Warfarin Sodium (Coumadin) 0.5 mg PO 1800 [facility] PRN Reason: Protocol Last Admin: 02/09/18 18:52 Dose: 0.5 mg Zolpidem Tartrate (Ambien) 5 mg PO HS PRN; Protocol PRN Reason: Sleep Last Admin: 02/06/18 22:09 Dose: 5 mg - Labs Labs: 04/30/18 11:51 02/09/18 11:51 PT 14.6 SECONDS (9.4-12.5) H 02/07/18 04:55 INR 1.27 (0.93-1.08) H 02/07/18 04:55 APTT 29.0 Seconds (25.1-36.5) 02/03/18 23:00 - Constitutional Appears: No Acute Distress - Head Exam Head Exam: NORMOCEPHALIC - Eye Exam Eye Exam: Normal appearance - ENT Exam ENT Exam: Mucous Membranes Moist - Respiratory Exam Respiratory Exam: Decreased Breath Sounds, NORMAL BREATHING PATTERN - Cardiovascular Exam Cardiovascular Exam: +S1, +S2 - GI/Abdominal Exam GI & Abdominal Exam: Soft, Normal Bowel Sounds - Exam Additional comments: sy catheter - Extremities Exam Extremities Exam: Normal Capillary Refill Additional comments: left side hemiplegia, right upper arm PICC - Neurological Exam Neurological Exam: Alert, Awake, Oriented x3 - Psychiatric Exam Psychiatric exam: Normal Affect, Normal Mood - Skin Skin Exam: Dry, Normal Color, Warm Additional comments: sacral decubitus Assessment and Plan - Assessment and Plan (Free Text) Assessment: MPRESSION: A 77 year old female with history of atrial fibrillation, hypertension,hypercholesterolemia,cerebrovascular accident, non obstructive coronary artery disease ( last cath 2013) history of abdominal aortic dissection, endovascular leak, seizure disorder, history of thrombocytopenia, chronic pain syndrome, history of decubitus ulcers, Chronic active hepatitis C, CVA with left hemiplegia, urinary tract infection ,history of ESBL-producing E. coli, sy catheter, history of pneumonia. Right lower lobe pneumonia, sacral decubitus positive for MRSA. Plan: On peripheral TPN via PICC for nutritional support Stable cardiac status On ASA 81 mg daily, Catapres 0.3 mg patch daily,Hydralazine 100 mg TID, Norvasc 5 mg daily, Lopressor 50 mg BID, Diovan 320 mg daily, Coumadin 0.5 mg daily (low dose due to history of bleeding) On contact Isolation for sacral decubitus positive for MRSA Potassium level 3.0, covered with total of oral 80 meq KCl. Continue IV antibiotics as ordered Followed up by Infectious disease Continue current medications Continue current treatment Will follow up Plan and treatment discussed with Dr. Wilkerson
--- NOTE | 2018-02-10 07:42 | CP.PCM.CON ---
History of Present Illness - History of Present Illness History of Present Illness: Surgery 77 year old female with PMH of atrial fibrillation, cerebrovascular accident w L side paralysis, history of aortic dissection, seizure disorder, history of thrombocytopenia, HTN, hypercholesterolemia, chronic pain syndrome, history of decubitus ulcers, Chronic active hepatitis C, CVA with left hemiplegia, history of ESBL-producing E. coli UTI was brought in to [facility] because of problems with her urinary catheter. She was also having increasing cough and was noted to have fever at home. In the ED, she was also noted to have low grade fever. The patient states that her cough is worsening, and she also has occasional shortness of breath at rest. She denies headache or dizziness, no sore throat, no rhinorrhea, no chest pain, no abdominal pain, no nausea or vomiting, no diarrhea, no dysuria. CXR is showing right lung base opacity. Pt had fever of 101.4 this admissions. WOund cx of sacral wound grew MRSA and Ecoli. No growth in urine cx. Surgery is consulted to evaluate for Sacral decub. Past medical history: CVA with left-sided paralysis, atrial fibrillation, seizure disorder, aortic aneurysm status post stent, hepatitis C, CHF, chronic anemia, UTI, COPD, chronic constipation, diverticulosis, left breast mass, and indwelling urinary catheter. Past surgical history is endovascular graft for aortic aneurysm, cardiac catheterization, appendectomy, last colonoscopy was 03/2013 found to have diverticulosis, hemorrhoids and redundant colon. Last endoscopy was 2015 found to have medium-size hiatal hernia and esophagus, stomach and duodenum were normal. Patient also had left hip surgery. Family history: Noncontributory Social history: Former smoker, no history of EtOH or recreational drug use Allergies: Penicillin Review of Systems - Review of Systems Review of Systems: See HPI Past Patient History - Infectious Disease Hx of Infectious Diseases: None - Tetanus Immunizations Tetanus Immunization: Unknown - Past Social History Smoking Status: Never Smoked - CARDIAC Hx Hypertension: Yes - PULMONARY Hx Respiratory Disorders: Yes Hx Pneumonia: Yes - NEUROLOGICAL HX Cerebrovascular Accident: Yes - HEENT Hx HEENT Problems: No - RENAL Hx Chronic Kidney Disease: No - ENDOCRINE/METABOLIC Hx Endocrine Disorders: No - HEMATOLOGICAL/ONCOLOGICAL Hx Blood Disorders: Yes Hx Anemia: Yes Hx Hepatitis C: Yes - INTEGUMENTARY Hx Dermatological Problems: No - MUSCULOSKELETAL/RHEUMATOLOGICAL Hx Falls: Yes - GASTROINTESTINAL Hx Gastrointestinal Disorders: Yes (aspiration precaution.Pureed diet.) - GENITOURINARY/GYNECOLOGICAL Hx Genitourinary Disorders: Yes (uti,incontinent,ARF) Hx Reproductive Disorders: No - PSYCHIATRIC Hx Psychophysiologic Disorder: No Hx Substance Use: No - SURGICAL HISTORY Hx Appendectomy: Yes Hx Cardiac Catheterization: Yes Hx Coronary Stent: Yes Hx Orthopedic Surgery: Yes ("right hip hemiarthroplasty") - ANESTHESIA Hx Anesthesia: Yes Hx Anesthesia Reactions: No Hx Malignant Hyperthermia: No Meds Allergies/Adverse Reactions: Allergies Allergy/AdvReac Type Severity Reaction Status Date / Time Penicillins AdvReac Intermediate RASH Verified 10/04/17 17:22 - Medications Medications: Current Medications Acetaminophen (Tylenol 325mg Tab) 650 mg PO Q4 PRN PRN Reason: Fever >100.4 F Last Admin: 02/06/18 05:57 Dose: 650 mg Acetylcysteine (Acetylcysteine 20%) 3 ml IH BIDRESP [facility] Last Admin: 02/09/18 20:05 Dose: 3 ml Albuterol/Ipratropium (Duoneb 3 Mg/0.5 Mg (3 Ml) Ud) 3 ml IH QIDRESP [facility] Last Admin: 02/09/18 20:05 Dose: 3 ml Amlodipine Besylate (Norvasc) 5 mg PO DAILY [facility] Last Admin: 02/09/18 09:40 Dose: 5 mg Aspirin (Aspirin Chewable) 81 mg PO DAILY [facility] Last Admin: 02/09/18 09:40 Dose: 81 mg Azithromycin (Zithromax) 500 mg PO DAILY [facility] Clonidine HCl (Catapres-Tts3 0.3 Mg/24 Hr) 1 patch TD Q7D@1000 [facility] Clonidine HCl (Catapres) 0.1 mg PO Q6 PRN PRN Reason: systolic bp >170 Last Admin: 02/07/18 08:18 Dose: 0.1 mg Hydralazine HCl (Apresoline) 100 mg PO TID [facility] Last Admin: 02/09/18 18:51 Dose: 100 mg Meropenem (Merrem Iv 1 Gm Premix) 50 mls @ 100 mls/hr IVPB Q8 [facility] PRN Reason: Protocol Last Admin: 02/10/18 05:41 Dose: 100 mls/hr Vancomycin HCl (Vancomycin 1gm) 1 gm in 250 mls @ 167 mls/hr IVPB Q12H [facility] PRN Reason: Protocol Last Admin: 02/10/18 02:45 Dose: 167 mls/hr Amino Acids (Clinimix 5/20 % (1000 Ml)) 1,000 mls @ 42 mls/hr IV .[id number] [facility] Stop: 02/10/18 17:25 Last Admin: 02/09/18 16:47 Dose: 42 mls/hr Levetiracetam (Keppra) 500 mg PO BID [facility] Last Admin: 02/09/18 18:54 Dose: 500 mg Magnesium Oxide (Mag-Ox) 400 mg PO BID [facility] Last Admin: 02/09/18 18:58 Dose: 400 mg Metoprolol Tartrate (Lopressor) 50 mg PO BRKDIN [facility] Last Admin: 02/09/18 18:57 Dose: 50 mg Mirtazapine (Remeron) 30 mg PO HS [facility] Last Admin: 02/09/18 22:40 Dose: 30 mg Mupirocin (Bactroban Ointment) 0 gm TOP BID [facility] Last Admin: 02/09/18 18:52 Dose: 1 applic Oxycodone HCl (Oxycodone Immediate Release Tab) 10 mg PO Q8H PRN PRN Reason: Pain, severe (8-10) Last Admin: 02/10/18 05:55 Dose: 10 mg Pantoprazole Sodium (Protonix Ec Tab) 40 mg PO DAILY [facility] Last Admin: 02/09/18 09:40 Dose: 40 mg Trazodone HCl (Desyrel) 50 mg PO HS [facility] Last Admin: 02/09/18 22:40 Dose: 50 mg Valsartan (Diovan) 320 mg PO DAILY [facility] Last Admin: 02/09/18 09:41 Dose: 320 mg Warfarin Sodium (Coumadin) 0.5 mg PO 1800 [facility] PRN Reason: Protocol Last Admin: 02/09/18 18:52 Dose: 0.5 mg Zolpidem Tartrate (Ambien) 5 mg PO HS PRN; Protocol PRN Reason: Sleep Last Admin: 02/06/18 22:09 Dose: 5 mg Results - Vital Signs Recent Vital Signs: Last Vital Signs Temp 98.9 F 02/09/18 16:32 Pulse 20 L 02/09/18 16:32 Resp 86 H 02/09/18 16:32 BP 158/84 H 02/09/18 16:32 Pulse Ox 97 02/09/18 16:32 - Labs Result Diagrams: 02/09/18 11:51 02/09/18 11:51 Labs: Laboratory Results - last 24 hr 02/09/18 02/09/18 11:51 11:51 WBC 8.9 D RBC 2.76 L Hgb 8.8 L Hct 26.3 L MCV 95.3 MCH 31.9 MCHC 33.5 RDW 12.6 Plt Count 117 L MPV 8.9 Sodium 139 Potassium 3.0 L Chloride 108 H Carbon Dioxide 23 Anion Gap 10 BUN 17 Creatinine 0.4 L Est GFR ( Amer) > 60 Est GFR (Non-Af Amer) > 60 Random Glucose 105 Calcium 8.0 L Total Bilirubin 0.4 AST 42 H ALT 31 Alkaline Phosphatase 61 Total Protein 5.2 L Albumin 2.4 L Globulin 2.8 Albumin/Globulin Ratio 0.9 L Assessment & Plan - Assessment and Plan (Free Text) Assessment: Sacral decubius ulcer stage II.: Sacral ulcer unlikely source of sepsis Afebrile No leukocytosis -COnt ABX per ID -Mupirocin for MRSA coverage -Optiform -Turn q2 -Airmattress -Wound care: alternate Medihoney / optiform and Mupirocin/ optiform -No surgical interventin needed at this time. ANASTASIA Saravia
[2018-02-10 07:45] LABS: BLOOD UREA NITROGEN 17 mg/dL (7-21); CALCIUM 8.4 mg/dL (8.4-10.5); GFR AFRICAN-AMERICAN > 60; GFR NON-AFRICAN AMERICAN > 60
[2018-02-10] MEDS: Acetylcysteine 20% Inhal Soln (4ml) IH SCH ×3 (08:00→21:31)
[2018-02-10] MEDS: Albuterol-Ipratrop 3 mg / 0.5 (3 ml) UD IH SCH ×4 (08:01→21:31)
--- NOTE | 2018-02-10 08:23 | PN ---
DATE: 02/09/2018 PULMONARY PROGRESS NOTE REFERRING PHYSICIAN: Albin Forte MD. SUBJECTIVE: The patient is lying in the bed, sleepy, arousable. Night was unremarkable. No headache. No rhinitis. Has some mild cough. No nausea. No abdominal pain. Has multiple pressure ulcers. PHYSICAL EXAMINATION: GENERAL: In no acute distress. VITAL SIGNS: Temperature is 98, heart rate is 84,respiratory rate is 20, blood pressure 158/84, pulse oximetry 95% on 2 L nasal cannula. HEENT: Small oral cavity. Crowded airway. NECK: Supple. No JVD. LUNGS: Have a few scattered rhonchi. HEART: S1, S2. ABDOMEN: Soft, nontender. No organomegaly. EXTREMITIES: Multiple pressure ulcers. NEUROLOGIC: Sleepy, arousable, follows simple commands. MEDICATIONS: She is on Mucomyst inhaled twice a day, Ambien 5 mg at bedtime p.r.n., hydralazine 100 mg 3 times a day, aspirin 81 mg daily, clonidine 0.1 mg every 6 hours p.r.n., also clonidine patch 0.3 mg weekly, IV Clinimix 42 mL per hour, Coumadin 0.5 mg daily, trazodone 50 mg at bedtime, Diovan 320 mg daily, albuterol-Atrovent nebulizer 4 times a day, Keppra 500 mg twice a day, metoprolol tartrate 50 mg twice a day, magnesium oxide 400 mg twice a day, meropenem 1 g every 8 hours, Norvasc 5 mg daily, oxycodone immediate release 10 mg every 8 hours p.r.n., Protonix 40 mg daily, Remeron 30 mg at bedtime, Tylenol p.r.n., vancomycin 1 g IV every 12 hours, and Zithromax 500 mg daily. LABORATORY DATA: Shows hemoglobin 8.8, hematocrit 26.3, WBC 8.9, platelets 117. Sodium 139, potassium 3, chloride 108, bicarbonate 23, BUN 17, creatinine 0.4, glucose 105, calcium 8. AST 42, ALT 31, alkaline phosphatase 61, albumin 2.4. Microbiology, sacral wound has MRSA and E. coli. IMPRESSION AND PLAN: Chronic obstructive lung disease, may have sleep apnea syndrome, right lower lobe atelectasis, sacral ulcer, urinary tract infection, hypertension, and oropharyngeal dysphagia, on modified diet. Refused CPAP/BiPAP. Pulmonary point of view, doing okay. Keep head at 45 degree, aspiration precaution, bronchodilator, antibiotics as per Infectious Disease, pressure ulcers precaution. Thank you and we will follow with you. Anushka Barreto MD
[2018-02-10] MEDS: Pantoprazole 40 mg EC Tab PO SCH (10:13)
[2018-02-10] MEDS: Magnesium Oxide 400 mg Tab UD PO SCH ×2 (10:13→17:58)
[2018-02-10] MEDS: levETIRAcetam 500 mg/5ml UD cups PO SCH ×2 (10:14→17:59)
[2018-02-10] MEDS ORDERED: Potassium Chloride 20 mEq/15 ml LIQ UD PO STA (10:47)
--- NOTE | 2018-02-10 13:43 | CP.PCM.PN ---
<NeoIsa - Last Filed: 02/10/18 13:39> Subjective - Date & Time of Evaluation Date of Evaluation: 02/10/18 Time of Evaluation: 13:39 - Subjective Subjective: Podiatry progress note for Dr. Barger/Dr. Arteaga 77 y/o female seen at bedside for left heel ulceration with attending Dr. Barger. Patient resting comfortably in bed in [facility]. Patient's multipodus boots are intact to bilateral lower extremities. She complains of pain in the left foot. She denies any acute events overnight. Patient denies F/C/N/V/CP/SOB. Has no new pedal complaints today. Objective - Vital Signs/Intake and Output Vital Signs (last 24 hours): Temp Pulse Resp BP Pulse Ox 98.8 F 96 H 20 168/70 H 95 02/10/18 08:25 02/10/18 10:13 02/10/18 08:25 02/10/18 10:13 02/10/18 08:25 Intake and Output: 02/10/18 02/10/18 06:59 18:59 Intake Total 360 0 Output Total 800 400 Balance -440 -400 - Medications Medications: Current Medications Acetaminophen (Tylenol 325mg Tab) 650 mg PO Q4 PRN PRN Reason: Fever >100.4 F Last Admin: 02/06/18 05:57 Dose: 650 mg Acetylcysteine (Acetylcysteine 20%) 3 ml IH BIDRESP [facility] Last Admin: 02/10/18 08:00 Dose: 3 ml Albuterol/Ipratropium (Duoneb 3 Mg/0.5 Mg (3 Ml) Ud) 3 ml IH QIDRESP [facility] Last Admin: 02/10/18 11:03 Dose: 3 ml Amlodipine Besylate (Norvasc) 5 mg PO DAILY [facility] Last Admin: 02/10/18 10:13 Dose: 5 mg Aspirin (Aspirin Chewable) 81 mg PO DAILY [facility] Last Admin: 02/10/18 10:13 Dose: 81 mg Azithromycin (Zithromax) 500 mg PO DAILY [facility] Last Admin: 02/10/18 10:12 Dose: 500 mg Clonidine HCl (Catapres-Tts3 0.3 Mg/24 Hr) 1 patch TD Q7D@1000 [facility] Clonidine HCl (Catapres) 0.1 mg PO Q6 PRN PRN Reason: systolic bp >170 Last Admin: 02/07/18 08:18 Dose: 0.1 mg Hydralazine HCl (Apresoline) 100 mg PO TID [facility] Last Admin: 02/10/18 10:13 Dose: 100 mg Meropenem (Merrem Iv 1 Gm Premix) 50 mls @ 100 mls/hr IVPB Q8 [facility] PRN Reason: Protocol Last Admin: 02/10/18 05:41 Dose: 100 mls/hr Vancomycin HCl (Vancomycin 1gm) 1 gm in 250 mls @ 167 mls/hr IVPB Q12H [facility] PRN Reason: Protocol Last Admin: 02/10/18 02:45 Dose: 167 mls/hr Levetiracetam (Keppra) 500 mg PO BID [facility] Last Admin: 02/10/18 10:14 Dose: 500 mg Magnesium Oxide (Mag-Ox) 400 mg PO BID [facility] Last Admin: 02/10/18 10:13 Dose: 400 mg Metoprolol Tartrate (Lopressor) 50 mg PO BRKDIN [facility] Last Admin: 02/10/18 10:13 Dose: 50 mg Mirtazapine (Remeron) 30 mg PO HS [facility] Last Admin: 02/09/18 22:40 Dose: 30 mg Mupirocin (Bactroban Ointment) 0 gm TOP BID [facility] Last Admin: 02/10/18 11:14 Dose: 1 applic Pantoprazole Sodium (Protonix Ec Tab) 40 mg PO DAILY [facility] Last Admin: 02/10/18 10:13 Dose: 40 mg Trazodone HCl (Desyrel) 50 mg PO HS [facility] Last Admin: 02/09/18 22:40 Dose: 50 mg Valsartan (Diovan) 320 mg PO DAILY [facility] Last Admin: 02/10/18 10:12 Dose: 320 mg Warfarin Sodium (Coumadin) 0.5 mg PO 1800 [facility] PRN Reason: Protocol Last Admin: 02/09/18 18:52 Dose: 0.5 mg Zolpidem Tartrate (Ambien) 5 mg PO HS PRN; Protocol PRN Reason: Sleep Last Admin: 02/06/18 22:09 Dose: 5 mg - Labs Labs: 02/09/18 11:51 02/10/18 06:00 PT 14.6 SECONDS (9.4-12.5) H 02/07/18 04:55 INR 1.27 (0.93-1.08) H 02/07/18 04:55 APTT 29.0 Seconds (25.1-36.5) 02/03/18 23:00 - Constitutional Appears: Well, Non-toxic, No Acute Distress - Extremities Exam Additional comments: Left lower extremity focused: VASC: nonpalpable pedal pulses. Temp gradient warm to cool from proximal to distal. Cap refill time: < 4 sec to all digits. No pitting or non-pitting edema noted DERM: Superficial nonstageable ulceration to the left heel with base of primary granulation tissue, fibrous border, minimal serous drainage noted, no purulence , no fluctaunce, no ascending cellulitis, no probe to tendon or bone. Mild erythema to plantar and posterior heel. Skin appears thin, shiny and discolored. Nails are elongated, thickened and dystrophic NEURO: grossly diminished ORTHO: moderate pain on palpation to plantar foot - Neurological Exam Neurological Exam: Alert, Awake, Oriented x3 - Psychiatric Exam Psychiatric exam: Normal Affect, Normal Mood Assessment and Plan - Assessment and Plan (Free Text) Assessment: 77 y/o female seen at bedside for left heel nonstageable ulceration with MRSA Plan: Patient seen and evaluated with attending Dr. Barger Labs, charts and vitals reviewed; afebrile, WBC 8.9 X-ray of left foot shows cellulitis, no acute evidence of OM Bactroban and Optifoam applied to LLE with multipodus boots Cont. IV abx as recommended podiatry will continue to follow while patient remains in house <Richard Barger - Last Filed: 02/10/18 16:03> Objective - Vital Signs/Intake and Output Vital Signs (last 24 hours): Temp Pulse Resp BP Pulse Ox 98.8 F 75 20 132/57 L 2 L 02/10/18 08:25 02/10/18 15:08 02/10/18 08:25 02/10/18 15:08 02/10/18 15:21 Intake and Output: 02/10/18 02/10/18 06:59 18:59 Intake Total 360 0 Output Total 800 400 Balance -440 -400 - Medications Medications: Current Medications Acetaminophen (Tylenol 325mg Tab) 650 mg PO Q4 PRN PRN Reason: Fever >100.4 F Last Admin: 02/06/18 05:57 Dose: 650 mg Acetylcysteine (Acetylcysteine 20%) 3 ml IH BIDRESP [facility] Last Admin: 02/10/18 08:00 Dose: 3 ml Albuterol/Ipratropium (Duoneb 3 Mg/0.5 Mg (3 Ml) Ud) 3 ml IH QIDRESP [facility] Last Admin: 02/10/18 11:03 Dose: 3 ml Amlodipine Besylate (Norvasc) 5 mg PO DAILY [facility] Last Admin: 02/10/18 10:13 Dose: 5 mg Aspirin (Aspirin Chewable) 81 mg PO DAILY [facility] Last Admin: 02/10/18 10:13 Dose: 81 mg Azithromycin (Zithromax) 500 mg PO DAILY [facility] Last Admin: 02/10/18 10:12 Dose: 500 mg Clonidine HCl (Catapres-Tts3 0.3 Mg/24 Hr) 1 patch TD Q7D@1000 [facility] Clonidine HCl (Catapres) 0.1 mg PO Q6 PRN PRN Reason: systolic bp >170 Last Admin: 02/07/18 08:18 Dose: 0.1 mg Hydralazine HCl (Apresoline) 100 mg PO TID [facility] Last Admin: 02/10/18 15:08 Dose: 100 mg Meropenem (Merrem Iv 1 Gm Premix) 50 mls @ 100 mls/hr IVPB Q8 [facility] PRN Reason: Protocol Last Admin: 02/10/18 15:09 Dose: 100 mls/hr Vancomycin HCl (Vancomycin 1gm) 1 gm in 250 mls @ 167 mls/hr IVPB Q12H [facility] PRN Reason: Protocol Last Admin: 02/10/18 15:13 Dose: 167 mls/hr Levetiracetam (Keppra) 500 mg PO BID [facility] Last Admin: 02/10/18 10:14 Dose: 500 mg Magnesium Oxide (Mag-Ox) 400 mg PO BID [facility] Last Admin: 02/10/18 10:13 Dose: 400 mg Metoprolol Tartrate (Lopressor) 50 mg PO BRKDIN [facility] Last Admin: 02/10/18 10:13 Dose: 50 mg Mirtazapine (Remeron) 30 mg PO HS [facility] Last Admin: 02/09/18 22:40 Dose: 30 mg Mupirocin (Bactroban Ointment) 0 gm TOP BID [facility] Last Admin: 02/10/18 11:14 Dose: 1 applic Pantoprazole Sodium (Protonix Ec Tab) 40 mg PO DAILY [facility] Last Admin: 02/10/18 10:13 Dose: 40 mg Trazodone HCl (Desyrel) 50 mg PO HS [facility] Last Admin: 02/09/18 22:40 Dose: 50 mg Valsartan (Diovan) 320 mg PO DAILY [facility] Last Admin: 02/10/18 10:12 Dose: 320 mg Warfarin Sodium (Coumadin) 0.5 mg PO 1800 [facility] PRN Reason: Protocol Last Admin: 02/09/18 18:52 Dose: 0.5 mg Zolpidem Tartrate (Ambien) 5 mg PO HS PRN; Protocol PRN Reason: Sleep Last Admin: 02/06/18 22:09 Dose: 5 mg - Labs Labs: 02/09/18 11:51 02/10/18 06:00 PT 14.6 SECONDS (9.4-12.5) H 02/07/18 04:55 INR 1.27 (0.93-1.08) H 02/07/18 04:55 APTT 29.0 Seconds (25.1-36.5) 02/03/18 23:00 Attending/Attestation - Attestation I have personally seen and examined this patient.: Yes I have fully participated in the care of the patient.: Yes I have reviewed all pertinent clinical information, including history, physical exam and plan: Yes
--- NOTE | 2018-02-10 15:07 | CP.PCM.PN ---
Subjective - Date & Time of Evaluation Date of Evaluation: 02/10/18 Time of Evaluation: 11:00 - Subjective Subjective: Comfortable, no fevers, not in distress. No diarrhea, no vomiting. Objective - Vital Signs/Intake and Output Vital Signs (last 24 hours): Temp Pulse Resp BP Pulse Ox 98.8 F 98 H 20 166/73 H 95 02/10/18 08:25 02/10/18 08:25 02/10/18 08:25 02/10/18 08:25 02/10/18 08:25 Intake and Output: 02/10/18 02/10/18 06:59 18:59 Intake Total 360 0 Output Total 800 400 Balance -440 -400 - Medications Medications: Current Medications Acetaminophen (Tylenol 325mg Tab) 650 mg PO Q4 PRN PRN Reason: Fever >100.4 F Last Admin: 02/06/18 05:57 Dose: 650 mg Acetylcysteine (Acetylcysteine 20%) 3 ml IH BIDRESP [facility] Last Admin: 02/10/18 08:00 Dose: 3 ml Albuterol/Ipratropium (Duoneb 3 Mg/0.5 Mg (3 Ml) Ud) 3 ml IH QIDRESP [facility] Last Admin: 02/10/18 08:01 Dose: 3 ml Amlodipine Besylate (Norvasc) 5 mg PO DAILY [facility] Last Admin: 02/09/18 09:40 Dose: 5 mg Aspirin (Aspirin Chewable) 81 mg PO DAILY [facility] Last Admin: 02/09/18 09:40 Dose: 81 mg Azithromycin (Zithromax) 500 mg PO DAILY [facility] Clonidine HCl (Catapres-Tts3 0.3 Mg/24 Hr) 1 patch TD Q7D@1000 [facility] Clonidine HCl (Catapres) 0.1 mg PO Q6 PRN PRN Reason: systolic bp >170 Last Admin: 02/07/18 08:18 Dose: 0.1 mg Hydralazine HCl (Apresoline) 100 mg PO TID [facility] Last Admin: 02/09/18 18:51 Dose: 100 mg Meropenem (Merrem Iv 1 Gm Premix) 50 mls @ 100 mls/hr IVPB Q8 [facility] PRN Reason: Protocol Last Admin: 02/10/18 05:41 Dose: 100 mls/hr Vancomycin HCl (Vancomycin 1gm) 1 gm in 250 mls @ 167 mls/hr IVPB Q12H [facility] PRN Reason: Protocol Last Admin: 02/10/18 02:45 Dose: 167 mls/hr Amino Acids (Clinimix 5/20 % (1000 Ml)) 1,000 mls @ 42 mls/hr IV .[id number] [facility] Stop: 02/10/18 17:25 Last Admin: 02/09/18 16:47 Dose: 42 mls/hr Levetiracetam (Keppra) 500 mg PO BID [facility] Last Admin: 02/09/18 18:54 Dose: 500 mg Magnesium Oxide (Mag-Ox) 400 mg PO BID [facility] Last Admin: 02/09/18 18:58 Dose: 400 mg Metoprolol Tartrate (Lopressor) 50 mg PO BRKDIN [facility] Last Admin: 02/09/18 18:57 Dose: 50 mg Mirtazapine (Remeron) 30 mg PO HS [facility] Last Admin: 02/09/18 22:40 Dose: 30 mg Mupirocin (Bactroban Ointment) 0 gm TOP BID [facility] Last Admin: 02/09/18 18:52 Dose: 1 applic Oxycodone HCl (Oxycodone Immediate Release Tab) 10 mg PO Q8H PRN PRN Reason: Pain, severe (8-10) Last Admin: 02/10/18 05:55 Dose: 10 mg Pantoprazole Sodium (Protonix Ec Tab) 40 mg PO DAILY [facility] Last Admin: 02/09/18 09:40 Dose: 40 mg Trazodone HCl (Desyrel) 50 mg PO HS [facility] Last Admin: 02/09/18 22:40 Dose: 50 mg Valsartan (Diovan) 320 mg PO DAILY [facility] Last Admin: 02/09/18 09:41 Dose: 320 mg Warfarin Sodium (Coumadin) 0.5 mg PO 1800 [facility] PRN Reason: Protocol Last Admin: 02/09/18 18:52 Dose: 0.5 mg Zolpidem Tartrate (Ambien) 5 mg PO HS PRN; Protocol PRN Reason: Sleep Last Admin: 02/06/18 22:09 Dose: 5 mg - Labs Labs: 02/09/18 11:51 02/10/18 06:00 PT 14.6 SECONDS (9.4-12.5) H 02/07/18 04:55 INR 1.27 (0.93-1.08) H 02/07/18 04:55 APTT 29.0 Seconds (25.1-36.5) 02/03/18 23:00 - Constitutional Appears: Chronically Ill - Head Exam Head Exam: NORMAL INSPECTION - Neck Exam Neck Exam: absent: Meningismus - Respiratory Exam Respiratory Exam: Decreased Breath Sounds - Cardiovascular Exam Cardiovascular Exam: +S1, +S2 - GI/Abdominal Exam GI & Abdominal Exam: Soft. absent: Tenderness - Extremities Exam Additional comments: left foot with dressings in place Assessment and Plan - Assessment and Plan (Free Text) Plan: Assessment Sepsis due to right lower lobe HCAP, clinically improving consider decubitus ulcer stage 2 and left heel ulcer infection with MRSA history of left rectus sheath hematoma history of acute pancreatitis Stage 4 decubitus ulcer history of right lower lobe healthcare-associated pneumonia history of ESBL E. coli and Enterococcus UTI history of ESBL E. coli UTI atrial fibrillation cerebrovascular accident history of aortic dissection seizure disorder history of thrombocytopenia HTN hypercholesterolemia chronic pain syndrome history of decubitus ulcers chronic active hepatitis C Plan on IV Vancomycin, Merrem and Zithromax day 7 to complete at least 7 days of therapy will continue to monitor clinically overall prognosis is poor discussed with Dr. Forte
--- NOTE | 2018-02-10 15:19 | IP.NPCORE ---
Pneumonia Progress Notes - Oxygenation Assessment (REQUIRED) Documented 02: Yes O2 Saturation: 2 Oxygen Delivery Method: Nasal Cannula - Blood Cultures (REQUIRED) Culture drawn: Yes Date:: 02/03/18 - Initial Antibiotic Initial Antibiotic given within Four Hours:: Yes Date:: 02/09/18 - Appropriate Antibiotic Appropriate Antibiotic within 24 hours of Admission:: Yes - Pneumonia Vaccine Pneumonia Vaccine: Yes Date:: 05/20/15 - Smoking Cessation Smoking Cessation counseling provided:: No (na) Ex-Smoker (has not smoked in the last 12 months): No Current Smoker - smoking cessation education provided: No
--- NOTE | 2018-02-10 15:37 | CP.PCM.CON ---
History of Present Illness - History of Present Illness History of Present Illness: Palliative consult requested by Dr Linus Forte Reason: Goals of care 77 year old female with history of A Fib, CVA , left sided paresis, aortic direction, sacral decubiti and seizure disorder who presented with non functioning urinary catheter. Family also reported the patient to have a non productive cough and low grade fever. The patient denies headaches, dizziness, chest pain, shortness of breath, nausea and vomiting. Chest x ray showed infiltrate in right lung base.Labs' WBC 8.5, Hgb 9.2, Plt 100 , NA 128,, BUN 27 , Creat 0.8, calcium 6.6, albumin 3.4 PMHx: A Fib,CVA left sided paresis, bed ridden,contractures,seizure disorder, aortic aneurysm, Hep C, chronic anemia,thrombocytopenia, UTI, constipation, diverticulitis, sepsis, dysphagia, left breast mass and indexing urinary catheter. Social History: Non smoker, no alcohol or drug use. Lives with daughter. Family History: Non contributory. Advance Care Planning:The patient has an Advanced Directive. Her daughter Mary Gamez is POA. Review of Systems: As per HPI, other esposito negative review. Past Patient History - Infectious Disease Hx of Infectious Diseases: None - Tetanus Immunizations Tetanus Immunization: Unknown - Past Social History Smoking Status: Never Smoked - CARDIAC Hx Hypertension: Yes - PULMONARY Hx Respiratory Disorders: Yes Hx Pneumonia: Yes - NEUROLOGICAL HX Cerebrovascular Accident: Yes - HEENT Hx HEENT Problems: No - RENAL Hx Chronic Kidney Disease: No - ENDOCRINE/METABOLIC Hx Endocrine Disorders: No - HEMATOLOGICAL/ONCOLOGICAL Hx Blood Disorders: Yes Hx Anemia: Yes Hx Hepatitis C: Yes - INTEGUMENTARY Hx Dermatological Problems: No - MUSCULOSKELETAL/RHEUMATOLOGICAL Hx Falls: Yes - GASTROINTESTINAL Hx Gastrointestinal Disorders: Yes (aspiration precaution.Pureed diet.) - GENITOURINARY/GYNECOLOGICAL Hx Genitourinary Disorders: Yes (uti,incontinent,ARF) Hx Reproductive Disorders: No - PSYCHIATRIC Hx Psychophysiologic Disorder: No Hx Substance Use: No - SURGICAL HISTORY Hx Appendectomy: Yes Hx Cardiac Catheterization: Yes Hx Coronary Stent: Yes Hx Orthopedic Surgery: Yes ("right hip hemiarthroplasty") - ANESTHESIA Hx Anesthesia: Yes Hx Anesthesia Reactions: No Hx Malignant Hyperthermia: No Meds Allergies/Adverse Reactions: Allergies Allergy/AdvReac Type Severity Reaction Status Date / Time Penicillins AdvReac Intermediate RASH Verified 12/23/17 17:22 - Medications Medications: Current Medications Acetaminophen (Tylenol 325mg Tab) 650 mg PO Q4 PRN PRN Reason: Fever >100.4 F Last Admin: 02/06/18 05:57 Dose: 650 mg Acetylcysteine (Acetylcysteine 20%) 3 ml IH BIDRESP [facility] Last Admin: 02/10/18 08:00 Dose: 3 ml Albuterol/Ipratropium (Duoneb 3 Mg/0.5 Mg (3 Ml) Ud) 3 ml IH QIDRESP [facility] Last Admin: 02/10/18 11:03 Dose: 3 ml Amlodipine Besylate (Norvasc) 5 mg PO DAILY [facility] Last Admin: 02/10/18 10:13 Dose: 5 mg Aspirin (Aspirin Chewable) 81 mg PO DAILY [facility] Last Admin: 02/10/18 10:13 Dose: 81 mg Azithromycin (Zithromax) 500 mg PO DAILY [facility] Last Admin: 02/10/18 10:12 Dose: 500 mg Clonidine HCl (Catapres-Tts3 0.3 Mg/24 Hr) 1 patch TD Q7D@1000 [facility] Clonidine HCl (Catapres) 0.1 mg PO Q6 PRN PRN Reason: systolic bp >170 Last Admin: 02/07/18 08:18 Dose: 0.1 mg Hydralazine HCl (Apresoline) 100 mg PO TID [facility] Last Admin: 02/10/18 10:13 Dose: 100 mg Meropenem (Merrem Iv 1 Gm Premix) 50 mls @ 100 mls/hr IVPB Q8 [facility] PRN Reason: Protocol Last Admin: 02/10/18 05:41 Dose: 100 mls/hr Vancomycin HCl (Vancomycin 1gm) 1 gm in 250 mls @ 167 mls/hr IVPB Q12H [facility] PRN Reason: Protocol Last Admin: 02/10/18 02:45 Dose: 167 mls/hr Levetiracetam (Keppra) 500 mg PO BID [facility] Last Admin: 02/10/18 10:14 Dose: 500 mg Magnesium Oxide (Mag-Ox) 400 mg PO BID [facility] Last Admin: 02/10/18 10:13 Dose: 400 mg Metoprolol Tartrate (Lopressor) 50 mg PO BRKDIN [facility] Last Admin: 02/10/18 10:13 Dose: 50 mg Mirtazapine (Remeron) 30 mg PO HS [facility] Last Admin: 02/09/18 22:40 Dose: 30 mg Mupirocin (Bactroban Ointment) 0 gm TOP BID [facility] Last Admin: 02/10/18 11:14 Dose: 1 applic Pantoprazole Sodium (Protonix Ec Tab) 40 mg PO DAILY [facility] Last Admin: 02/10/18 10:13 Dose: 40 mg Trazodone HCl (Desyrel) 50 mg PO HS [facility] Last Admin: 02/09/18 22:40 Dose: 50 mg Valsartan (Diovan) 320 mg PO DAILY [facility] Last Admin: 02/10/18 10:12 Dose: 320 mg Warfarin Sodium (Coumadin) 0.5 mg PO 1800 [facility] PRN Reason: Protocol Last Admin: 02/09/18 18:52 Dose: 0.5 mg Zolpidem Tartrate (Ambien) 5 mg PO HS PRN; Protocol PRN Reason: Sleep Last Admin: 02/06/18 22:09 Dose: 5 mg Physical Exam - Constitutional Appears: Cachectic, Chronically Ill - Head Exam Head Exam: NORMOCEPHALIC - Eye Exam Eye Exam: Normal appearance, PERRL - ENT Exam ENT Exam: Mucous Membranes Moist - Neck Exam Neck exam: Positive for: Normal Inspection - Respiratory Exam Respiratory Exam: Decreased Breath Sounds, NORMAL BREATHING PATTERN - Cardiovascular Exam Cardiovascular Exam: Irregular Rhythm, +S1, +S2 - GI/Abdominal Exam GI & Abdominal Exam: Soft - Extremities Exam Additional comments: contracted, left harjit peligia - Neurological Exam Additional comments: lethargic - Skin Skin Exam: Dry, Pallor - Additional Findings Additional findings: Palliative performance scale rating 30 % Results - Vital Signs Recent Vital Signs: Last Vital Signs Temp 98.8 F 02/10/18 08:25 Pulse 96 H 02/10/18 10:13 Resp 20 02/10/18 08:25 BP 168/70 H 02/10/18 10:13 Pulse Ox 2 L 02/10/18 15:21 - Labs Result Diagrams: 02/09/18 11:51 02/10/18 06:00 Labs: Laboratory Results - last 24 hr 02/10/18 06:00 Sodium 138 Potassium 3.7 Chloride 109 H Carbon Dioxide 22 Anion Gap 11 BUN 17 Creatinine 0.5 L Est GFR ( Amer) > 60 Est GFR (Non-Af Amer) > 60 Random Glucose 93 Calcium 8.4 Assessment & Plan - Assessment and Plan (Free Text) Assessment: This patient is known to me form previous admissions. The patient has and advanced direcitve in which she states she does not want to be intubated or given CPR if her condition is terminal. She also did not want a feeding tube.I have spoken with Mary KHAN in the past and she has been resistant to making her mother DNR/DNI> Yamileth feels her mother is chronically ill and not terminal During this admission the patient was experiencing dysphagia. The patient has been receiving hyperalimentation. Daughter has decided against PEG. Given the fact that PEG is being refused, palliative was asked to revisit goals of care. Dyspahgia now improving. Dr Forte spoke with daughter this morning via phone. Dr Forte states the daughter wants mother to remain full code status. The daughter is not interested in hospice care. The daughter is aware that her mother will be discharged home tomorrow. I also left a VM with daughter with intent to offer additional counseling regarding goals of care. Plan: Goals of care As per Dr Forte's orders, [place] discontinued. Sepsis: As per ID,compete day 7 of IV Merrem and Zithromax. Wound care
--- NOTE | 2018-02-10 23:15 | PN ---
DATE: 02/10/2018 PULMONARY PROGRESS NOTE REFERRING PHYSICIAN: Albin Forte MD SUBJECTIVE: The patient is lying in the bed, head at 45 degree. Sleepy, arousable. Night was unremarkable. Still has some mild cough. No nausea. No vomiting. No diarrhea. Multiple pressure ulcers. OBJECTIVE: GENERAL: In no acute distress. VITAL SIGNS: Temperature is 98, heart rate is 76, respiratory rate is 18, blood pressure is 156/67, pulse ox is 95% on 2 L nasal cannula. HEENT: Moist mucous membrane. Small oral cavity. NECK: Supple. No JVD. LUNGS: Have fair airflow, no rhonchi. HEART: S1 and S2. ABDOMEN: Soft, nontender, nondistended. EXTREMITIES: Does have multiple ulcers. NEUROLOGIC: Awake and alert. Follows simple command. MEDICATIONS: She is on Mucomyst inhaled twice a day, Ambien 5 mg at bedtime p.r.n., hydralazine 100 mg 3 times a day, aspirin 81 mg daily, Catapres 0.1 mg every 6 hours, also Catapres patch 0.3 mg three times a day, Coumadin 0.5 mg will be given today, trazodone 50 mg at bedtime, Diovan 320 mg daily, DuoNeb four times a day and Keppra 500 mg twice a day, metoprolol tartrate 50 mg twice a day, magnesium oxide 400 mg twice a day, meropenem is 1 g every 8 hours, Norvasc 5 mg daily, Protonix 40 mg daily, Remeron is 30 mg at bedtime, Tylenol p.r.n., vancomycin 1 g IV every 12 hours, Zithromax 500 mg daily. LABORATORY DATA: Reviewed and noted. Sodium 138, potassium 3.7, chloride 109, bicarbonate 22, BUN 17, creatinine 0.5, glucose is 93, calcium is 8.4. IMPRESSION AND PLAN: Chronic obstructive lung disease; sleep apnea syndrome; right lower lobe atelectasis, some scarring; sacral ulcer, has multiple pressure ulcers; recurrent urinary tract infection; hypertension; oropharyngeal dysphagia, on modified diet. Refused continuous positive airway pressure/bilevel positive airway pressure. Pulmonary point of view, doing okay. Sleep apnea precaution. Aspiration precaution. Continue bronchodilator. Keep head at 45 degrees. Antibiotics as per Infectious Disease. Thank you and we will follow with you. Anushka Barreto MD [facility] # [id number]
[2018-02-11] MEDS: Vancomycin 1gm in NS 250ml 1 GM/250 ML BAG IVPB SCH (02:01)
[2018-02-11] MEDS: Meropenem IV 1 gm in NS 50 ML IVPB SCH (04:59)
--- NOTE | 2018-02-11 06:49 | CP.PCM.PN ---
Subjective - Date & Time of Evaluation Date of Evaluation: 02/11/18 Time of Evaluation: 06:15 - Subjective Subjective: Awake, comfortable ,denies shortness of breath, denies chest pain, smiling Reason for consult and follow up: Cardiac evaluation, history of non obstructive coronary artery disease, Atrial fibrillation, cerebrovascular disease with left side hemiplegia, hypertension, hypercholesterolemia, abdominal aortic aneurysm. Seen and examined by me and Dr. Wilkerson Objective - Vital Signs/Intake and Output Vital Signs (last 24 hours): Temp Pulse Resp BP Pulse Ox 98.2 F 76 18 158/67 H 99 02/10/18 18:00 02/10/18 18:00 02/10/18 18:00 02/10/18 18:00 02/10/18 18:00 Intake and Output: 02/10/18 02/11/18 18:59 06:59 Intake Total 0 360 Output Total 400 900 Balance -400 -540 - Medications Medications: Current Medications Acetaminophen (Tylenol 325mg Tab) 650 mg PO Q4 PRN PRN Reason: Fever >100.4 F Last Admin: 02/06/18 05:57 Dose: 650 mg Acetylcysteine (Acetylcysteine 20%) 3 ml IH BIDRESP [facility] Last Admin: 02/10/18 21:31 Dose: 3 ml Albuterol/Ipratropium (Duoneb 3 Mg/0.5 Mg (3 Ml) Ud) 3 ml IH QIDRESP [facility] Last Admin: 02/10/18 21:31 Dose: 3 ml Amlodipine Besylate (Norvasc) 5 mg PO DAILY [facility] Last Admin: 02/10/18 10:13 Dose: 5 mg Aspirin (Aspirin Chewable) 81 mg PO DAILY [facility] Last Admin: 02/10/18 10:13 Dose: 81 mg Azithromycin (Zithromax) 500 mg PO DAILY [facility] Last Admin: 02/10/18 10:12 Dose: 500 mg Clonidine HCl (Catapres-Tts3 0.3 Mg/24 Hr) 1 patch TD Q7D@1000 [facility] Clonidine HCl (Catapres) 0.1 mg PO Q6 PRN PRN Reason: systolic bp >170 Last Admin: 02/07/18 08:18 Dose: 0.1 mg Hydralazine HCl (Apresoline) 100 mg PO TID [facility] Last Admin: 02/10/18 17:58 Dose: 100 mg Meropenem (Merrem Iv 1 Gm Premix) 50 mls @ 100 mls/hr IVPB Q8 [facility] PRN Reason: Protocol Last Admin: 02/11/18 04:59 Dose: 100 mls/hr Vancomycin HCl (Vancomycin 1gm) 1 gm in 250 mls @ 167 mls/hr IVPB Q12H [facility] PRN Reason: Protocol Last Admin: 02/11/18 02:01 Dose: 167 mls/hr Levetiracetam (Keppra) 500 mg PO BID [facility] Last Admin: 02/10/18 17:59 Dose: 500 mg Magnesium Oxide (Mag-Ox) 400 mg PO BID [facility] Last Admin: 02/10/18 17:58 Dose: 400 mg Metoprolol Tartrate (Lopressor) 50 mg PO BRKDIN [facility] Last Admin: 02/10/18 17:59 Dose: 50 mg Mirtazapine (Remeron) 30 mg PO HS [facility] Last Admin: 02/10/18 22:21 Dose: 30 mg Mupirocin (Bactroban Ointment) 0 gm TOP BID [facility] Last Admin: 02/10/18 18:12 Dose: 1 applic Pantoprazole Sodium (Protonix Ec Tab) 40 mg PO DAILY [facility] Last Admin: 02/10/18 10:13 Dose: 40 mg Trazodone HCl (Desyrel) 50 mg PO HS [facility] Last Admin: 02/10/18 22:21 Dose: 50 mg Valsartan (Diovan) 320 mg PO DAILY [facility] Last Admin: 02/10/18 10:12 Dose: 320 mg Warfarin Sodium (Coumadin) 0.5 mg PO 1800 [facility] PRN Reason: Protocol Last Admin: 02/10/18 17:59 Dose: 0.5 mg Zolpidem Tartrate (Ambien) 5 mg PO HS PRN; Protocol PRN Reason: Sleep Last Admin: 02/10/18 22:21 Dose: 5 mg - Labs Labs: 02/09/18 11:51 02/10/18 06:00 PT 14.6 SECONDS (9.4-12.5) H 02/07/18 04:55 INR 1.27 (0.93-1.08) H 02/07/18 04:55 APTT 29.0 Seconds (25.1-36.5) 02/03/18 23:00 - Constitutional Appears: No Acute Distress - Head Exam Head Exam: NORMOCEPHALIC - ENT Exam ENT Exam: Mucous Membranes Moist - Respiratory Exam Respiratory Exam: Decreased Breath Sounds, NORMAL BREATHING PATTERN - Cardiovascular Exam Cardiovascular Exam: +S1, +S2 Additional comments: left side hemiplegia - GI/Abdominal Exam GI & Abdominal Exam: Soft, Normal Bowel Sounds - Exam Additional comments: sy catheter - Extremities Exam Extremities Exam: Normal Capillary Refill - Neurological Exam Neurological Exam: Alert, Awake, Oriented x3 - Psychiatric Exam Psychiatric exam: Normal Affect, Normal Mood - Skin Skin Exam: Dry, Normal Color, Warm Additional comments: sacral decubitus Assessment and Plan - Assessment and Plan (Free Text) Assessment: A 77 year old female with history of atrial fibrillation, hypertension, hypercholesterolemia,cerebrovascular accident, non obstructive coronary artery disease ( last cath 2013) history of abdominal aortic dissection, endovascular leak, seizure disorder, history of thrombocytopenia, chronic pain syndrome, history of decubitus ulcers, Chronic active hepatitis C, CVA with left hemiplegia, urinary tract infection ,history of ESBL-producing E. coli, sy catheter, history of pneumonia. Right lower lobe pneumonia, sacral decubitus positive for MRSA. Plan: No evidence of myocardial ischemia Cardiac status stable On ASA 81 mg daily, Catapres 0.3 mg patch daily,Hydralazine 100 mg TID, Norvasc 5 mg daily, Lopressor 50 mg BID, Diovan 320 mg daily, Coumadin 0.5 mg daily (low dose due to history of bleeding) On contact Isolation for sacral decubitus positive for MRSA Continue IV antibiotics as ordered Palliative care consulted Continue current medications Continue current treatment Will follow up Plan and treatment discussed with Dr. Wilkerson
[2018-02-11 08:02] VITALS: RESP 20; TEMP 97.3; O2SAT 97
[2018-02-11] MEDS: Acetylcysteine 20% Inhal Soln (4ml) IH SCH (08:08)
[2018-02-11] MEDS: Albuterol-Ipratrop 3 mg / 0.5 (3 ml) UD IH SCH ×2 (08:09→11:04)
[2018-02-11] MEDS: Magnesium Oxide 400 mg Tab UD PO SCH (09:32)
[2018-02-11] MEDS: Pantoprazole 40 mg EC Tab PO SCH (09:32)
[2018-02-11] MEDS: levETIRAcetam 500 mg/5ml UD cups PO SCH (09:33)
[2018-02-11 10:29] VITALS: BP 152/70; PULSE 75
--- NOTE | 2018-02-12 11:52 | PQF SEPSIS ---
This form is a permanent part of the medical record DR. SMITH, Patient admitted with Pneumonia and MRSA infected sacral and left heel wounds. ID noted Sepsis is present. Please document if you agree with this diagnosis or ruled out. Clarification of your documentation is requested to better reflect the severity of illness and intensity of treatment of your patient. Indicators present [x] Temp < 96.8 or > 100.4 [x] WBC count > 12,000/mm3 or <000/mm3 or 10% immature neutrophils [x] Heart Rate > 90 [] Respiratory Rate > 20 [x] Fever or hypothermia [] Chills [] Positive blood cultures [] Hypotension [] Metabolic acidosis (Elevated lactate level, anion gap or reduced blood pH) [x] Acute confusion /Altered Mental Status [] Shock [] Other: [] Location in the medical record that reflects the above clinical findings: [] Treatment Provided: [] PHYSICIAN'S RESPONSE Based on your medical judgment of the clinical indicators outlined above, are you treating this patient for a known or suspected: [] Sepsis / Septicemia Please specify organism if known [] [] SIRS (Systemic Inflammatory Response Syndrome) [] Severe Sepsis (Sepsis with Associated Organ Dysfunction) [] Fever of Unknown Origin [] Other, please indicate: [] [] If Unable to Determine, please check the box, sign and date. Present On Admission (POA) Indicator: [x] Present at the time of admission [] Not present at the time of admission [] Clinically Undetermined In responding to this query, please exercise your independent professional judgment. The fact that a question is asked does not imply that any particular answer is desired or expected. Thank you for your clarification on this documentation. If you have any questions please call:[ ] * Thank you, [X ] KORI outboard motor assembler JAMES
--- NOTE | 2018-02-12 11:56 | PQF PNEUMO ---
This form is a permanent part of the medical record DR. SMITH, Please clarify if Aspiration Pneumonia was present on admission. Clarification of your documentation is requested to better reflect the severity of illness and intensity of treatment of your patient. Indicators present [] Documented diagnosis of pneumonia [] X-ray findings: [] Positive Sputum cultures [] Cough w/ fever [] Abnormal lungs sounds [] Poor gag reflex [] Speech consults/swallow evaluation [] Vent dependence [] Other: [] Location in the medical record that reflects the above clinical findings: [] Treatment Provided: [] PHYSICIAN'S RESPONSE Based on your medical judgment of the clinical indicators outlined above, are you treating this patient for a known or suspected: [] Aspiration pneumonia [] Community acquired pneumonia [] Ventilator associated pneumonia [] Viral pneumonia [] Bacterial pneumonia Please specify organism: [] [] Other, please indicate [] If Unable to Determine, please check the box, sign and date. Present On Admission (POA) Indicator: [] Present at the time of admission [] Not present at the time of admission [] Clinically Undetermined In responding to this query, please exercise your independent professional judgment. The fact that a question is asked does not imply that any particular answer is desired or expected. Thank you for your clarification on this documentation. If you have any questions please call:[ ] * Thank you, [x ] KORI OJEDAtest desk trouble locator JAMES
--- NOTE | 2018-02-12 13:13 | PN ---
DATE: 02/10/2018 SUBJECTIVE: The patient is clinically stable. No complaint. No respiratory distress. Still getting IV antibiotics, tomorrow will be the last day. The patient has no respiratory distress. Pneumonia has been resolving and the patient has no complaint. PHYSICAL EXAMINATION: VITAL SIGNS: Temperature 98.2, heart rate 75, blood pressure 132/57, saturating 99% on 2 liters. HEAD AND NECK: Normal. No JVD. No thyromegaly. CHEST: Clear. Good air entry. CARDIAC: First sound and second sound normal. ABDOMEN: Soft, nontender. EXTREMITIES: Trace mild edema in the ankle and both legs have contractures and has heel decubitus. NEUROLOGIC: The patient has left hemiplegia. SKIN: Shows sacral decubitus, stage II-III and has been taking care by Wound Care. LABORATORY DATA: On 02/10, sodium 138, potassium 3.7, chloride 109, bicarb 22, BUN 17, and creatinine 0.5. IMPRESSION AND PLAN: 1. Nosocomial pneumonia. The patient has recurrent admission on and off. We will continue meropenem, continue vancomycin for decubitus, doxycycline, IV azithromycin. The patient seems doing well. Tomorrow night will be the last dose of the IV antibiotic and she will be discharged tomorrow. 2. Chronic obstructive pulmonary disease. Continue inhaled bronchodilators. Hypertension, difficult to control. Continue Diovan. Continue hydralazine, Lopressor and clonidine patch and Norvasc 5 mg daily. 3. Chronic atrial fibrillation. Continue metoprolol 50 mg b.i.d. The patient will increase Lasix from 0.5 to 1 mg daily. The patient did have a fatal bleeding almost and we will monitor her PT/INR. Continue aspirin and Coumadin 1 mg. Monitor her for bleeding, at the same time it is difficult to control the atrial fibrillation with anticoagulation. Discussed with the senior software quality analyst. Recommend to increase Coumadin slowly. We will try to keep the INR 1.8 if no bleeding happened. 4. Seizure disorder. Keppra 500 b.i.d. 5. Chronic anxiety and insomnia. Continue Ambien. 6. Chronic spine pain, chronic back pain. Continue oxycodone 50 mg every 8 hours. We will follow up clinically. Discussed with other crop consultant for sacral decubitus, local wound care. We will do paraffin patch and we will continue for the wound care and Dennard visiting nurse will see. Albin Forte MD
--- NOTE | 2018-02-13 11:01 | DS ---
HISTORY OF PRESENT ILLNESS: The patient is stable, will be discharged home. She has no complaints. She ____. PHYSICAL EXAMINATION: VITAL SIGNS: On discharge, temperature 97.3, pulse , blood pressure 159/69, respirations 20, saturation 97%. HEAD AND NECK: Normal. No JVD. No thyromegaly. CHEST: Clear. Good air entry. CARDIAC: First sound and second sound normal. ABDOMEN: Soft, nontender. EXTREMITIES: Marked edema. . While she is in the hospital, she is seen by the specialists; Infectious Disease, Dr. Bullard; she is seen by . Podiatry consult, , she is seen by GI consult. On Friday, the patient had a . The patient was seen by . ASSESSMENT AND PLAN: 1. Left lower lobe pneumonia . 2. Sacral decubitus with methicillin-resistant Staphylococcus aureus . 3. Hypertension. 4. Cerebrovascular accident. 5. Chronic hepatitis C. 6. Thrombocytopenia, anemia. 7. . 8. disorder. 9. Difficulty ambulation. . PLAN: Continue current therapy. . Albin Forte MD
== END 2018-02-11 11:47 | disposition home or self-care (01) | DRG 871 ==
LOC: ED 18:42 → ERH 22:58 → 3RNO 02-04 00:29
PROVIDERS: ADMIT Internal Medicine; ATTEND Internal Medicine
PROC: 3E0F7GC Introduction of Other Therapeutic Substance into Respiratory Tract, Via Natural or Artificial Opening (ICD-10-PCS; 2018-02-04)
PROC: 3E0336Z Introduction of Nutritional Substance into Peripheral Vein, Percutaneous Approach (ICD-10-PCS; principal; 2018-02-06)
PROC: 02HV33Z Insertion of Infusion Device into Superior Vena Cava, Percutaneous Approach (ICD-10-PCS; 2018-02-06)
DX: A41.9 Sepsis, unspecified organism (principal); J18.9 Pneumonia, unspecified organism; I69.354 Hemiplegia and hemiparesis following cerebral infarction affecting left non-dominant side; L97.429 Non-pressure chronic ulcer of left heel and midfoot with unspecified severity; L03.116 Cellulitis of left lower limb; R64 Cachexia; J44.9 Chronic obstructive pulmonary disease, unspecified; D64.9 Anemia, unspecified; B18.2 Chronic viral hepatitis C; E78.00 Pure hypercholesterolemia, unspecified; G89.4 Chronic pain syndrome; G40.909 Epilepsy, unspecified, not intractable, without status epilepticus; D69.6 Thrombocytopenia, unspecified; I48.0 Paroxysmal atrial fibrillation; I25.10 Atherosclerotic heart disease of native coronary artery without angina pectoris; F03.90 Unspecified dementia, unspecified severity, without behavioral disturbance, psychotic disturbance, mood disturbance, and anxiety; I73.9 Peripheral vascular disease, unspecified; B95.62 Methicillin resistant Staphylococcus aureus infection as the cause of diseases classified elsewhere; L89.152 Pressure ulcer of sacral region, stage 2; R62.7 Adult failure to thrive; I48.2 Chronic atrial fibrillation; M54.9 Dorsalgia, unspecified; Z51.5 Encounter for palliative care; F32.9 Major depressive disorder, single episode, unspecified; R13.12 Dysphagia, oropharyngeal phase; I50.9 Heart failure, unspecified; I11.0 Hypertensive heart disease with heart failure; G47.30 Sleep apnea, unspecified; T83.021A Displacement of indwelling urethral catheter, initial encounter; M24.562 Contracture, left knee; M24.561 Contracture, right knee; R47.02 Dysphasia; K44.9 Diaphragmatic hernia without obstruction or gangrene; Z74.01 Bed confinement status; Z68.21 Body mass index [BMI] 21.0-21.9, adult; Z79.01 Long term (current) use of anticoagulants; Z98.82 Breast implant status; Z87.01 Personal history of pneumonia (recurrent); Z95.5 Presence of coronary angioplasty implant and graft; Z87.891 Personal history of nicotine dependence

== ENCOUNTER 2019-01-27 13:49 | Inpatient (IN) | payer MEDICARE, OTHER ==
[2019-01-27 13:49] VITALS: BMI 21.2
[2019-01-27 14:58] LABS: BASO # 0.01 K/mm3 (0.0-2.0); BASO % 0.2 % (0.0-3.0); EOS # 0.1 (0.0-0.7); EOS % 1.8 % (1.5-5.0); LYMPH # 0.9 (1.2-3.4); LYMPH % 18.2 % (22.0-35.0); MEAN CELL VOLUME 105.1 fl (80.0-105.0); MEAN CORPUSCULAR HEMOGLOBIN 31.9 pg (25.0-35.0); MEAN CORPUSCULAR HGB CONC 30.4 g/dl (31.0-37.0); MEAN PLATELET VOLUME 8.6 fl (7.0-11.0); MONO # 0.3 (0.1-0.6); MONO % 6.4 % (1.0-6.0); RBC 2.16 10^6/uL (3.5-6.1); RED CELL DISTRIBUTION WIDTH 21.9 % (11.5-14.5)
[2019-01-27 15:02] LABS: ALB/GLOB RATIO 1.1 (1.1-1.8); ALBUMIN 3.6 g/dL (3.0-4.8); ALT/SGPT 19 U/L (7-56); AST/SGOT 52 U/L (14-36); BLOOD UREA NITROGEN 13 mg/dL (7-21); CALCIUM 8.6 mg/dL (8.4-10.5); GFR NON-AFRICAN AMERICAN > 60
[2019-01-27 15:05] LABS: HEMOGLOBIN 6.9 g/dL (12.0-16.0)
[2019-01-27 15:13] LABS: TROPONIN I < 0.01 ng/mL
[2019-01-27 15:18] LABS: INR 1.11; PARTIAL THROMBOPLASTIN TIME 30.7 Seconds (26.9-38.3); PROTHROMBIN TIME 12.3 SECONDS (9.4-12.5)
--- NOTE | 2019-01-27 15:25 | ED PDOC ---
Arrival/HPI - General Chief Complaint: Abnormal Labs Time Seen by Provider: 01/27/19 14:01 Historian: Patient - History of Present Illness Narrative History of Present Illness (Text): 01/27/19 15:21 78-year-old female presents today sent in by her primary care physician for admission for anemia. Per patient's caregiver the patient has had bruising on the left arm across the chest and the abdomen for the past week. She denies any trauma or injury. Per the caregiver, the patient was seen at the primary care physician's office yesterday and had blood work performed and was found to have a hemoglobin of 6.9 today. Patient was sent in for admission for her low hemoglobin. Patient denies chest pain or shortness of breath. She denies abdominal pain. Patient states she only has pain on the decubitus ulcer on her buttocks. Patient denies urinary symptoms. States Bush catheter is in place. No vomiting or diarrhea. Patient's caregiver states that the patient usually drinks Ensure. Past Medical History - Provider Review Nursing Documentation Reviewed: Yes - Travel History Have you recently traveled outside [place] w/in the past 3 mons?: No - Infectious Disease Hx of Infectious Diseases: None - Tetanus Immunization Tetanus Immunization: Unknown - Reproductive Menopause: Yes - Cardiac Hx Hypertension: Yes - Pulmonary Hx Respiratory Disorders: Yes Hx Pneumonia: Yes - Neurological HX Cerebrovascular Accident: Yes - HEENT Hx HEENT Disorder: No - Renal Hx Renal Disorder: No - Endocrine/Metabolic Hx Endocrine Disorders: No - Hematological/Oncological Hx Blood Disorders: Yes Hx Anemia: Yes Hx Hepatitis C: Yes - Integumentary Hx Dermatological Disorder: No - Musculoskeletal/Rheumatological Hx Falls: Yes - Gastrointestinal Hx Gastrointestinal Disorders: Yes (aspiration precaution.Pureed diet.) - Genitourinary/Gynecological Hx Genitourinary Disorders: Yes (uti,incontinent,ARF) Hx Reproductive Disorders: No - Psychiatric Hx Psychophysiologic Disorder: No Hx Substance Use: No - Past Surgical History Past Surgical History: Non-Contributing - Surgical History Hx Appendectomy: Yes Hx Cardiac Catheterization: Yes Hx Coronary Stent: Yes Hx Orthopedic Surgery: Yes ("right hip hemiarthroplasty") - Anesthesia Hx Anesthesia: Yes Hx Anesthesia Reactions: No Hx Malignant Hyperthermia: No - Suicidal Assessment Feels Threatened In Home Enviroment: No Family/Social History - Physician Review Nursing Documentation Reviewed: Yes Family/Social History: Unknown Family HX Smoking Status: Never Smoked Hx Alcohol Use: No Hx Substance Use: No Hx Substance Use Treatment: No Allergies/Home Meds Allergies/Adverse Reactions: Allergies Penicillins Adverse Reaction (Intermediate, Verified 10/04/17 17:22) RASH Review of Systems - Review of Systems Constitutional: absent: Fatigue, Fevers Respiratory: absent: SOB, Cough Cardiovascular: absent: Chest Pain, Palpitations Gastrointestinal: absent: Abdominal Pain, Constipation, Diarrhea, Nausea, Vomiting Genitourinary Female: absent: Dysuria, Frequency, Hematuria Musculoskeletal: absent: Arthralgias, Back Pain, Neck Pain Skin: Other (decubitus Ulcer) Neurological: Headache. absent: Dizziness Hemo/Lymphatic: Easy Bruising Psychiatric: absent: Anxiety, Depression Physical Exam Vital Signs Reviewed: Yes Vital Signs Temp Pulse Resp BP Pulse Ox 01/27/19 14:05 98 F 65 18 148/63 98 Temperature: Afebrile Blood Pressure: Normal Pulse: Regular Respiratory Rate: Normal Appearance: Positive for: Well-Appearing, Non-Toxic, Comfortable Pain Distress: None Mental Status: Positive for: Alert and Oriented X 3 - Systems Exam Head: Present: Atraumatic Pupils: Present: PERRL Extroacular Muscles: Present: EOMI Conjunctiva: Present: Normal Mouth: Present: Moist Mucous Membranes Neck: Present: Normal Range of Motion Respiratory/Chest: Present: Clear to Auscultation, Good Air Exchange, Other (there is ecchymosis noted across the entire anterior chest. ). No: Respiratory Distress, Accessory Muscle Use, Retracting, Rhonchi, Tachypneic, Tender to Palpation Cardiovascular: Present: Regular Rate and Rhythm. No: Tachycardic Abdomen: Present: Normal Bowel Sounds, Other (Ecchymosis noted to the lateral abd and flanks bilaterally). No: Tenderness, Distention, Peritoneal Signs, Rebound, Guarding Back: Present: Other (ecchymosis to the lateral abd/flank) Upper Extremity: Present: Other (ecchymosis left upper arm and right forearm/hand) Lower Extremity: Present: Other (small areas of ecchymosis; ) Neurological: Present: GCS=15, Speech Normal Skin: Present: Warm, Dry Psychiatric: Present: Alert, Oriented x 3 Medical Decision Making ED Course and Treatment: 01/27/19 18:24 78-year-old female presents today sent in by the primary care physician for abnormal labs. Patient was found to have ecchymosis across the entire anterior chest across both sides of the abdomen and flanks. To the right forearm and hand and left upper arm. CBC hemoglobin 6.9 CMP within normal limits INR 1.11 ekg; sinus bradycardia with first-degree AV block at [address] elevations QTC 441 CT of the head:FINDINGS: Note that the examination is slightly limited by motion artifact. HEMORRHAGE: No acute parenchymal, subarachnoid or extra-axial hemorrhage. BRAIN: Redemonstrated is a large chronic infarct that involves most the right cerebral hemisphere (MCA distribution) there is involvement of most of the right lateral basal ganglia, internal capsule and posterior basal ganglia. There is sparing of the occipital pole ([employer] distribution).. There is also mild diffuse/confluent chronic periventricular white matter ischemic changes and several additional more discrete bilateral basal nuclei lacunar type infarcts as well. Note that the possibility of a small hyperacute infarct cannot be excluded on this study. Moderate generalized volume loss not withstanding slight ex vacuo dilatation of the right lateral ventricle. Vascular calcifications both carotid siphons and vertebral arteries. VENTRICLES: No obstructive hydrocephalus. CALVARIUM: Calvarium intact. PARANASAL SINUSES: Unremarkable as visualized. No significant inflammatory changes. MASTOID AIR CELLS: Unremarkable as visualized. No inflammatory changes. OTHER FINDINGS: None. IMPRESSION: Slightly limited motion degraded study. No acute intracranial hemorrhage. Redemonstrated is a large chronic infarct that involves most the right cerebral hemisphere (MCA distribution) there is involvement of most of the right lateral basal ganglia, internal capsule and posterior basal ganglia. There is sparing of the occipital pole ([employer] distribution).. There is also mild diffuse/confluent chronic periventricular white matter ischemic changes and several additional more discrete bilateral basal nuclei lacunar type infarcts as well. Note that the possibility of a small hyperacute infarct cannot be excluded on this study. Moderate generalized volume loss not withstanding slight ex vacuo dilatation of the right lateral ventricle. Ct abd/pelvis; FINDINGS: CT CHEST WITH CONTRAST: LUNGS: Moderate-sized left-sided effusion and mild atelectasis seen in the left upper and lower lobes. Trace right effusion and minor right basilar atelectasis. There also curvilinear areas of scarring right lower lobe.. Suspect mild centrilobular emphysematous changes. MEDIASTINUM: Heart is enlarged. Questionable trace pericardial effusion. Redemonstrated is endovascular stent repair of and thoracic aortic aneurysm. LYMPH NODES: Unremarkable. PLEURA: Unremarkable. No pneumothorax. No pleural fluid. BONES: Multilevel degenerative spondylosis of the thoracic spine. There is a mild a dextroscoliosis in the lower thoracic region. OTHER FINDINGS: There are bilateral peripherally calcified breast implants. CT ABDOMEN AND PELVIS: LIVER: Liver exhibits relatively normal size measuring nearly 17 cm in CC dimension. Mild to moderate diffuse fatty hepatic infiltration. There appears to be some very minor central intrahepatic biliary ductal dilatation. GALLBLADDER AND BILE DUCTS: Questionable tiny calcification anterior aspect left lobe liver gallbladder appears incompletely distended with slight thick-walled appearance. No evidence of intraluminal gallbladder calculi. Portal and splenic veins are opacified. PANCREAS: Unremarkable. No gross lesion or ductal dilatation. SPLEEN: Splenomegaly.. However there is slight heterogeneous likely due to early phase of injection. Increased vascularity seen in the left upper quadrant of the abdomen possibly representing varices. ADRENALS: No obvious adrenal lesions. KIDNEYS AND URETERS: Kidneys demonstrate relatively symmetric nephrograms. No evidence of nephrolithiasis or hydronephrosis.. There are at least 2 low-attenuation foci left kidney likely representing slightly hyperdense cyst. Renal ultrasound could confirm. VASCULATURE: No aortic atherosclerotic calcification or mural plaque present. There is aneurysmal dilatation of the infrarenal abdominal aorta which measures approximately 4 cm in greatest dimension as measured on axial image number 52 series 6. BOWEL: Evaluation of the bowel is somewhat limited due to the lack of oral contrast material. The stomach is partially distended with food debris liquid and air. Visualized loops of small bowel exhibit normal contour and caliber. No evidence of acute mechanical small bowel obstruction. There is a large amount of stool seen throughout the colon consistent with fecal retention/constipation. Light slight wall thickening of the rectum. Consider follow-up sigmoidoscopy to exclude rectal wall lesion. APPENDIX: Normal appendix. PERITONEUM: No evidence of free or loculated fluid collections. No definitive CT evidence of intraperitoneal or retroperitoneal hemorrhage. No gross free intraperitoneal a ir. LYMPH NODES: Unremarkable. No enlarged lymph nodes. BLADDER: Urinary bladder is partially obscured by streak and beam hardening artifact arising from left-sided total hip replacement. Urinary bladder is collapsed about an in situ unclamped Bush catheter. Urinary bladder wall thickening is in part due to collapse however the possibility of a cystitis not excluded. REPRODUCTIVE: Uterus is partially obscured by streak and beam hardening artifact arising from left-sided total hip replacement. The uterus appears to be atrophic with low- attenuation appearance of the endometrium.. Follow-up pelvic ultrasound is recommended to to assess the endometrium BONES: Multilevel degenerative spondylosis of the lumbar spine. There is a mild dextroscoliosis centered in the lower thoracic region. OTHER FINDINGS: None. IMPRESSION: Moderate-sized left effusion with mild atelectasis left upper and lower lobes. Trace right-sided effusion with minimal right basilar atelectasis. Endovascular repair of thoracic aortic aneurysm. There is infrarenal abdominal aortic aneurysm which measures up to approximately 4 cm in greatest dimension. Mild fatty hepatic infiltration with a minimal central intrahepatic biliary ductal dilatation. Splenomegaly. Possible varices left upper quadrant of the abdomen. Urinary bladder is collapsed about an in situ unclamped Bush catheter. Bladder wall thickening likely due to collapse however correlation with urinalysis recommended to exclude cystitis or other intrinsic/invasive wall lesion. Note that the bladder is partially obscured by streak and beam hardening artifact arising from left total hip replacement. What is felt to represent uterus exhibits low-attenuation endometrium. Recommend follow-up pelvic ultrasound to exclude endometrial lesion. Note that the uterus is partially obscured by streak and beam hardening artifact arising from left total hip replacement. Slight wall thickening of the rectum; consider follow-up sigmoidoscopy to exclude infarct all wall lesion. 01/27/19 19:14 patients POA is her daughter Mary Gamez. i spoke with her in depth regarding ct findings, and anemia. I discussed blood transfusion with her in depth; Paula gamez agrees to blood transfusion. 1Unit PRBCS ordered. pt started on Aztreonam for UTI. case discussed with dr. alberto; accepts admission to tele. consult dr. flaherty. All aspects of this case were discussed the attending of record. impression; anemia, uti, pleural effusion admit to tele. - Lab Interpretations Lab Results: PT 12.3 SECONDS (9.4-12.5) 01/27/19 14:37 INR 1.11 01/27/19 14:37 APTT 30.7 Seconds (26.9-38.3) 01/27/19 14:37 Troponin I < 0.01 ng/mL D 01/27/19 14:37 Total Bilirubin 1.0 mg/dL (0.2-1.3) 01/27/19 14:37 AST 52 U/L (14-36) H D 01/27/19 14:37 ALT 19 U/L (7-56) 01/27/19 14:37 Alkaline Phosphatase 65 U/L (38-126) 01/27/19 14:37 Total Protein 7.0 g/dL (5.8-8.3) 01/27/19 14:37 Albumin 3.6 g/dL (3.0-4.8) 01/27/19 14:37 Globulin 3.4 gm/dL 01/27/19 14:37 Albumin/Globulin Ratio 1.1 (1.1-1.8) 01/27/19 14:37 - RAD Interpretation Radiology Orders: 01/27/19 14:18 CHEST,ABD,PEL W/IV CONT ONLY [CT] Stat 01/27/19 14:19 CHEST PORTABLE [RAD] Stat 01/27/19 14:20 HEAD W/O CONTRAST [CT] Stat Disposition/Present on Arrival - Present on Arrival Any Indicators Present on Arrival: Yes History of DVT/PE: No History of Uncontrolled Diabetes: No Urinary Catheter: Yes History of Decub. Ulcer: No History Surgical Site Infection Following: None - Disposition Have Diagnosis and Disposition been Completed?: Yes Diagnosis: UTI (urinary tract infection), Anemia Disposition: HOSPITALIZED Disposition Time: 19:47 Patient Plan: Admission Patient Problems: Current Active Problems Problem Status Onset UTI (urinary tract infection) Acute Anemia Chronic Condition: FAIR
[2019-01-27 16:40] LABS: URINE APPEARANCE TURBID (CLEAR); URINE BILIRUBIN NEGATIVE (NEGATIVE); URINE BLOOD MODERATE (NEGATIVE); URINE COLOR YELLOW (YELLOW); URINE GLUCOSE (UA) NEGATIVE (NEGATIVE); URINE LEUKOCYTE ESTERASE LARGE Leu/uL (NEGATIVE); URINE PROTEIN 30 mg/dL (<30 mg/dL); URINE UROBILINOGEN 0.2 E.U./dL (<1 E.U./dL)
[2019-01-27 16:52] LABS: URINE BACTERIA MANY /hpf; URINE RBC 25 - 30 /hpf (0-2); URINE WBC TNTC /hpf (0-6)
[2019-01-27 16:53] LABS: URINE AMORPHOUS SEDIMENT MANY /hpf
--- NOTE | 2019-01-27 18:07 | CT ---
Date of service: 01/27/2019 PROCEDURE: CT HEAD WITHOUT CONTRAST. HISTORY: Low hemoglobin in a patient on Coumadin. COMPARISON: Comparison made with prior CT scan brain 10/13/2017. TECHNIQUE: Axial computed tomography images were obtained through the head/brain without intravenous contrast. Radiation dose: Total exam DLP = 861.43 mGy-cm. This CT exam was performed using one or more of the following dose reduction techniques: Automated exposure control, adjustment of the mA and/or kV according to patient size, and/or use of iterative reconstruction technique. FINDINGS: Note that the examination is slightly limited by motion artifact. HEMORRHAGE: No acute parenchymal, subarachnoid or extra-axial hemorrhage. BRAIN: Redemonstrated is a large chronic infarct that involves most the right cerebral hemisphere (MCA distribution) there is involvement of most of the right lateral basal ganglia, internal capsule and posterior basal ganglia. There is sparing of the occipital pole ([employer] distribution).. There is also mild diffuse/confluent chronic periventricular white matter ischemic changes and several additional more discrete bilateral basal nuclei lacunar type infarcts as well. Note that the possibility of a small hyperacute infarct cannot be excluded on this study. Moderate generalized volume loss not withstanding slight ex vacuo dilatation of the right lateral ventricle. Vascular calcifications both carotid siphons and vertebral arteries. VENTRICLES: No obstructive hydrocephalus. CALVARIUM: Calvarium intact. PARANASAL SINUSES: Unremarkable as visualized. No significant inflammatory changes. MASTOID AIR CELLS: Unremarkable as visualized. No inflammatory changes. OTHER FINDINGS: None. IMPRESSION: Slightly limited motion degraded study. No acute intracranial hemorrhage. Redemonstrated is a large chronic infarct that involves most the right cerebral hemisphere (MCA distribution) there is involvement of most of the right lateral basal ganglia, internal capsule and posterior basal ganglia. There is sparing of the occipital pole (QU[employer]YING SPECIALIST distribution).. There is also mild diffuse/confluent chronic periventricular white matter ischemic changes and several additional more discrete bilateral basal nuclei lacunar type infarcts as well. Note that the possibility of a small hyperacute infarct cannot be excluded on this study. Moderate generalized volume loss not withstanding slight ex vacuo dilatation of the right lateral ventricle.
--- NOTE | 2019-01-27 19:12 | CT ---
Date of service: 01/27/2019 PROCEDURE: CT Chest, Abdomen and Pelvis with intravenous contrast HISTORY: Low hemoglobin with bruising to chest abdomen and pelvis. COMPARISON: Comparison made with CT scan of the abdomen and pelvis 10/25/[address] scan of the chest dated 05/07/2015. TECHNIQUE: Contiguous helical/transaxial sections of the chest abdomen pelvis performed in standard fashion following intravenous injection of approximately 90 cc Omnipaque 300 contrast material. Additional 2D sagittal and coronal reformats generated. Radiation dose: Total exam DLP = 456.78 mGy-cm. This CT exam was performed using one or more of the following dose reduction techniques: Automated exposure control, adjustment of the mA and/or kV according to patient size, and/or use of iterative reconstruction technique. FINDINGS: CT CHEST WITH CONTRAST: LUNGS: Moderate-sized left-sided effusion and mild atelectasis seen in the left upper and lower lobes. Trace right effusion and minor right basilar atelectasis. There also curvilinear areas of scarring right lower lobe.. Suspect mild centrilobular emphysematous changes. MEDIASTINUM: Heart is enlarged. Questionable trace pericardial effusion. Redemonstrated is endovascular stent repair of and thoracic aortic aneurysm. LYMPH NODES: Unremarkable. PLEURA: Unremarkable. No pneumothorax. No pleural fluid. BONES: Multilevel degenerative spondylosis of the thoracic spine. There is a mild a dextroscoliosis in the lower thoracic region. OTHER FINDINGS: There are bilateral peripherally calcified breast implants. CT ABDOMEN AND PELVIS: LIVER: Liver exhibits relatively normal size measuring nearly 17 cm in CC dimension. Mild to moderate diffuse fatty hepatic infiltration. There appears to be some very minor central intrahepatic biliary ductal dilatation. GALLBLADDER AND BILE DUCTS: Questionable tiny calcification anterior aspect left lobe liver gallbladder appears incompletely distended with slight thick-walled appearance. No evidence of intraluminal gallbladder calculi. Portal and splenic veins are opacified. PANCREAS: Unremarkable. No gross lesion or ductal dilatation. SPLEEN: Splenomegaly.. However there is slight heterogeneous likely due to early phase of injection. Increased vascularity seen in the left upper quadrant of the abdomen possibly representing varices. ADRENALS: No obvious adrenal lesions. KIDNEYS AND URETERS: Kidneys demonstrate relatively symmetric nephrograms. No evidence of nephrolithiasis or hydronephrosis.. There are at least 2 low-attenuation foci left kidney likely representing slightly hyperdense cyst. Renal ultrasound could confirm. VASCULATURE: No aortic atherosclerotic calcification or mural plaque present. There is aneurysmal dilatation of the infrarenal abdominal aorta which measures approximately 4 cm in greatest dimension as measured on axial image number 52 series 6. BOWEL: Evaluation of the bowel is somewhat limited due to the lack of oral contrast material. The stomach is partially distended with food debris liquid and air. Visualized loops of small bowel exhibit normal contour and caliber. No evidence of acute mechanical small bowel obstruction. There is a large amount of stool seen throughout the colon consistent with fecal retention/constipation. Light slight wall thickening of the rectum. Consider follow-up sigmoidoscopy to exclude rectal wall lesion. APPENDIX: Normal appendix. PERITONEUM: No evidence of free or loculated fluid collections. No definitive CT evidence of intraperitoneal or retroperitoneal hemorrhage. No gross free intraperitoneal air. LYMPH NODES: Unremarkable. No enlarged lymph nodes. BLADDER: Urinary bladder is partially obscured by streak and beam hardening artifact arising from left-sided total hip replacement. Urinary bladder is collapsed about an in situ unclamped Bush catheter. Urinary bladder wall thickening is in part due to collapse however the possibility of a cystitis not excluded. REPRODUCTIVE: Uterus is partially obscured by streak and beam hardening artifact arising from left-sided total hip replacement. The uterus appears to be atrophic with low-attenuation appearance of the endometrium.. Follow-up pelvic ultrasound is recommended to to assess the endometrium BONES: Multilevel degenerative spondylosis of the lumbar spine. There is a mild dextroscoliosis centered in the lower thoracic region. OTHER FINDINGS: None. IMPRESSION: Moderate-sized left effusion with mild atelectasis left upper and lower lobes. Trace right-sided effusion with minimal right basilar atelectasis. Endovascular repair of thoracic aortic aneurysm. There is infrarenal abdominal aortic aneurysm which measures up to approximately 4 cm in greatest dimension. Mild fatty hepatic infiltration with a minimal central intrahepatic biliary ductal dilatation. Splenomegaly. Possible varices left upper quadrant of the abdomen. Urinary bladder is collapsed about an in situ unclamped Bush catheter. Bladder wall thickening likely due to collapse however correlation with urinalysis recommended to exclude cystitis or other intrinsic/invasive wall lesion. Note that the bladder is partially obscured by streak and beam hardening artifact arising from left total hip replacement. What is felt to represent uterus exhibits low-attenuation endometrium. Recommend follow-up pelvic ultrasound to exclude endometrial lesion. Note that the uterus is partially obscured by streak and beam hardening artifact arising from left total hip replacement. Slight wall thickening of the rectum; consider follow-up sigmoidoscopy to exclude infarct all wall lesion.
[2019-01-27] MEDS ORDERED: Aztreonam 1 Gm in NS 100mL 100 ML IVPB STA (19:43)
--- NOTE | 2019-01-27 22:48 | CARD ---
APPROVED REPORT Date of service: 01/27/2019 EKG Measurement Heart [id number] <Conclusion> Sinus bradycardia with 1st degree AV block Left axis deviation Abnormal ECG
[2019-01-27] MEDS: oxyCODONE 15 mg Immediate Release Tab PO PRN (23:33)
--- NOTE | 2019-01-28 06:42 | CP.PCM.CON ---
<Luis Alberto Simmons - Last Filed: 01/28/19 13:47> History of Present Illness - History of Present Illness History of Present Illness: Luis Alberto Simmons PGY2 Heme/Onc Consult Note for Dr. Sanchez 78 year old female with history of A Fib on coumadin, CVA , left sided paresis, aortic direction, sacral decubiti and seizure disorder who presented with diffuse bruising over her chest, abdomen, and arms for the past week. Per the caregiver, the patient was seen at the primary care physician's office yesterday and had blood work performed and was found to have a hemoglobin of 6.9 today. Patient states she takes warfarin at home, denies any recent falls or trauma. She denies headaches, dizziness, chest pain, shortness of breath, nausea and vomiting. PMHx: A Fib,CVA left sided paresis, bed ridden,contractures,seizure disorder, aortic aneurysm, Hep C, chronic anemia,thrombocytopenia, UTI, constipation, d iverticulitis, sepsis, dysphagia, left breast mass and indexing urinary catheter. Social History: Non smoker, no alcohol or drug use. Lives with daughter. Family History: Non contributory. Allergies: Penicillin PMD: Saleeb Review of Systems - Review of Systems Review of Systems: negtive except for that mentioned in HPI - Constitutional Constitutional: absent: Fatigue, Fever, Weight Gain, Weight Loss, Weakness Past Patient History - Infectious Disease Hx of Infectious Diseases: None - Tetanus Immunizations Tetanus Immunization: Unknown - Past Social History Smoking Status: Former Smoker - CARDIAC Hx Cardiac Disorders: Yes Hx Congestive Heart Failure: Yes Hx Hypercholesterolemia: Yes Hx Hypertension: Yes - PULMONARY Hx Respiratory Disorders: Yes Hx Pneumonia: Yes - NEUROLOGICAL Hx Neurological Disorder: Yes HX Cerebrovascular Accident: Yes (left side flaccid) Hx Seizures: Yes - HEENT Hx HEENT Problems: No - RENAL Hx Chronic Kidney Disease: Yes - ENDOCRINE/METABOLIC Hx Endocrine Disorders: No - HEMATOLOGICAL/ONCOLOGICAL Hx Blood Disorders: Yes (blood transfusion) Hx Anemia: Yes Hx Hepatitis C: Yes - INTEGUMENTARY Hx Dermatological Problems: Yes (genralized bruises) - MUSCULOSKELETAL/RHEUMATOLOGICAL Hx Falls: No - GASTROINTESTINAL Hx Gastrointestinal Disorders: Yes (aspiration precaution.Pureed diet.) - GENITOURINARY/GYNECOLOGICAL Hx Genitourinary Disorders: Yes (chronic sy) Hx Urinary Tract Infection: Yes - PSYCHIATRIC Hx Substance Use: No - SURGICAL HISTORY Hx Surgeries: Yes Hx Appendectomy: Yes Hx Cardiac Catheterization: Yes Hx Coronary Stent: Yes Hx Orthopedic Surgery: Yes ("right hip hemiarthroplasty") - ANESTHESIA Hx Anesthesia: Yes Hx Anesthesia Reactions: No Hx Malignant Hyperthermia: No Meds Allergies/Adverse Reactions: Allergies Allergy/AdvReac Type Severity Reaction Status Date / Time Penicillins AdvReac Intermediate RASH Verified 10/04/17 17:22 - Medications Medications: Current Medications Acetaminophen (Tylenol 325mg Tab) 650 mg PO Q4 PRN PRN Reason: Fever >100.4 F Albuterol/Ipratropium (Duoneb 3 Mg/0.5 Mg (3 Ml) Ud) 3 ml IH QIDRESP [facility] Furosemide (Lasix) 20 mg PO DAILY [facility] Levetiracetam (Keppra) 500 mg PO BID [facility] Magnesium Oxide (Mag-Ox) 400 mg PO BID [facility] Metoprolol Tartrate (Lopressor) 50 mg PO BRKDIN [facility] Mirtazapine (Remeron) 30 mg PO HS [facility] Last Admin: 01/27/19 23:33 Dose: 30 mg Oxycodone HCl (Oxycodone Immediate Release Tab) 15 mg PO Q8H PRN PRN Reason: Pain, severe (8-10) Last Admin: 01/27/19 23:33 Dose: 15 mg Pantoprazole Sodium (Protonix Ec Tab) 40 mg PO DAILY [facility] Potassium Chloride (Klor-Con 10) 10 meq PO QD7 [facility] Trazodone HCl (Desyrel) 50 mg PO HS [facility] Last Admin: 01/27/19 23:32 Dose: 50 mg Valsartan (Diovan) 320 mg PO DAILY [facility] Zolpidem Tartrate (Ambien) 5 mg PO HS PRN; Protocol PRN Reason: Sleep Physical Exam - Constitutional Appears: No Acute Distress, Older Than Stated Age - Head Exam Head Exam: ATRAUMATIC, NORMAL INSPECTION, NORMOCEPHALIC - Eye Exam Eye Exam: EOMI, Normal appearance - ENT Exam ENT Exam: Mucous Membranes Moist - Respiratory Exam Respiratory Exam: Clear to Auscultation Bilateral, NORMAL BREATHING PATTERN - Neurological Exam Neurological exam: Alert, Oriented x3 - Skin Additional comments: bruising noted on chest, abdomen, bilteral arms, diffuse Results - Vital Signs Recent Vital Signs: Last Vital Signs Temp 98 F 01/28/19 06:00 Pulse 59 L 01/28/19 06:00 Resp 18 01/28/19 06:00 BP 149/79 01/28/19 06:00 Pulse Ox 98 01/28/19 06:00 - Labs Result Diagrams: 01/28/19 07:00 01/28/19 07:00 Labs: Laboratory Results - last 24 hr 01/27/19 01/27/19 01/27/19 14:37 14:37 14:37 WBC RBC Hgb Hct MCV MCH MCHC RDW Plt Count MPV Neut % (Auto) Lymph % (Auto) Hill % (Auto) Eos % (Auto) Baso % (Auto) Lymph # (Auto) Hill # (Auto) Eos # (Auto) Baso # (Auto) Absolute Neuts (auto) PT 12.3 INR 1.11 APTT 30.7 Sodium 137 Potassium 4.3 Chloride 99 Carbon Dioxide 30 Anion Gap 12 BUN 13 Creatinine 0.6 L Est GFR ( Amer) > 60 Est GFR (Non-Af Amer) > 60 Random Glucose 99 Calcium 8.6 Total Bilirubin 1.0 AST 52 H D ALT 19 Alkaline Phosphatase 65 Lactate Dehydrogenase 561 Total Creatine Kinase < 20 L Troponin I < 0.01 D Total Protein 7.0 Albumin 3.6 Globulin 3.4 Albumin/Globulin Ratio 1.1 Urine Color Urine Appearance Urine pH Ur Specific [place] Urine Protein Urine Glucose (UA) Urine Ketones Urine Blood Urine Nitrate Urine Bilirubin Urine Urobilinogen Ur Leukocyte Esterase Urine RBC Urine WBC Ur Epithelial Cells Amorphous Sediment Urine Bacteria Blood Type A POSITIVE Antibody Screen Negative Crossmatch See Detail BBK History Checked Patient has bt 01/27/19 01/27/19 14:37 16:30 WBC 5.0 RBC 2.16 L Hgb 6.9 L* Hct 22.7 L MCV 105.1 H D MCH 31.9 MCHC 30.4 L RDW 21.9 H Plt Count 148 MPV 8.6 Neut % (Auto) 73.4 H Lymph % (Auto) 18.2 L Hill % (Auto) 6.4 H Eos % (Auto) 1.8 Baso % (Auto) 0.2 Lymph # (Auto) 0.9 L Hill # (Auto) 0.3 Eos # (Auto) 0.1 Baso # (Auto) 0.01 Absolute Neuts (auto) 3.66 PT INR APTT Sodium Potassium Chloride Carbon Dioxide Anion Gap BUN Creatinine Est GFR ( Amer) Est GFR (Non-Af Amer) Random Glucose Calcium Total Bilirubin AST ALT Alkaline Phosphatase Lactate Dehydrogenase Total Creatine Kinase Troponin I Total Protein Albumin Globulin Albumin/Globulin Ratio Urine Color Yellow Urine Appearance Turbid Urine pH 7.0 Ur Specific [place] 1.020 Urine Protein 30 H Urine Glucose (UA) Negative Urine Ketones Negative Urine Blood Moderate H Urine Nitrate Positive H Urine Bilirubin Negative Urine Urobilinogen 0.2 Ur Leukocyte Esterase Large H Urine RBC 25 - 30 H Urine WBC Tntc H Ur Epithelial Cells 10 - 12 H Amorphous Sediment Many Urine Bacteria Many Blood Type Antibody Screen Crossmatch BBK History Checked Assessment & Plan - Assessment and Plan (Free Text) Assessment: 78 year old female with history of A Fib on coumadin, CVA , left sided paresis, aortic direction, sacral decubiti and seizure disorder who presented with diffuse bruising over her chest, abdomen, and arms for the past week. Plan: Anemia -Hgb 6.9 on admission -s/p 1 unit PRBC -repeat Hgb 8.9 from this am -MCV of 102.1 -platelets 121 -iron studies -continue to monitor -GI will perform endoscopy to rule out GI loss Echymosis -hold warfarin -likely due to mild trauma -B12 and folate within normal range -increased fibrin split products -decrease fibrinogen -will start B complex <Vandana Sanchez P - Last Filed: 01/31/19 17:54> Meds - Medications Medications: Current Medications Acetaminophen (Tylenol 325mg Tab) 650 mg PO Q4 PRN PRN Reason: Fever >100.4 F Albuterol/Ipratropium (Duoneb 3 Mg/0.5 Mg (3 Ml) Ud) 3 ml IH QIDRESP [facility] Last Admin: 01/31/19 16:02 Dose: 3 ml Clonidine HCl (Catapres) 0.1 mg PO Q6H PRN PRN Reason: Systolic Blood Pressure Furosemide (Lasix) 20 mg PO DAILY [facility] Last Admin: 01/31/19 09:43 Dose: 20 mg Hydralazine HCl (Apresoline) 50 mg PO QID [facility] Last Admin: 01/31/19 17:52 Dose: 50 mg Meropenem/Sodium Chloride (Merrem Iv 500 Mg/Ns 50 Ml) 500 mg in 50 mls @ 100 mls/hr IVPB Q8 [facility]; Protocol Stop: 02/06/19 06:01 Last Admin: 01/31/19 14:44 Dose: 100 mls/hr Levetiracetam (Keppra) 500 mg PO BID [facility] Last Admin: 01/31/19 17:53 Dose: 500 mg Magnesium Oxide (Mag-Ox) 400 mg PO BID [facility] Last Admin: 01/31/19 17:50 Dose: 400 mg Metoprolol Tartrate (Lopressor) 50 mg PO BRKDIN [facility] Last Admin: 01/31/19 17:52 Dose: 50 mg Mirtazapine (Remeron) 30 mg PO HS [facility] Last Admin: 01/30/19 21:30 Dose: 30 mg Oxycodone HCl (Oxycodone Immediate Release Tab) 15 mg PO Q8H PRN PRN Reason: Pain, severe (8-10) Last Admin: 01/31/19 06:36 Dose: 15 mg Pantoprazole Sodium (Protonix Inj) 40 mg IVP Q12 [facility] Last Admin: 01/31/19 09:43 Dose: 40 mg Potassium Chloride (Klor-Con 10) 10 meq PO QD7 [facility] Last Admin: 01/31/19 08:56 Dose: 10 meq Trazodone HCl (Desyrel) 50 mg PO HS [facility] Last Admin: 01/30/19 21:30 Dose: 50 mg Valsartan (Diovan) 320 mg PO DAILY [facility] Last Admin: 01/31/19 09:43 Dose: 320 mg Vitamin B Complex/Vit C/Folic Acid (Nephro-Mundo) 1 tab PO 0800 [facility] Last Admin: 01/31/19 08:56 Dose: 1 tab Zolpidem Tartrate (Ambien) 5 mg PO HS PRN; Protocol PRN Reason: Sleep Results - Vital Signs Recent Vital Signs: Last Vital Signs Temp 98.2 F 01/31/19 11:37 Pulse 77 01/31/19 17:52 Resp 18 01/31/19 11:37 BP 144/60 01/31/19 17:52 Pulse Ox 96 01/31/19 05:38 - Labs Result Diagrams: 01/29/19 08:30 01/29/19 09:00 Attending/Attestation - Attestation I have personally seen and examined this patient.: Yes I have fully participated in the care of the patient.: Yes I have reviewed all pertinent clinical information: Yes
[2019-01-28 07:42] LABS: ALBUMIN 3.4 g/dL (3.0-4.8); ALT/SGPT 17 U/L (7-56); AST/SGOT 41 U/L (14-36); BLOOD UREA NITROGEN 12 mg/dL (7-21); CALCIUM 8.3 mg/dL (8.4-10.5); GFR NON-AFRICAN AMERICAN > 60
[2019-01-28 07:50] LABS: BASO # 0.01 K/mm3 (0.0-2.0); BASO % 0.2 % (0.0-3.0); EOS # 0.1 (0.0-0.7); EOS % 1.7 % (1.5-5.0); LYMPH # 1.7 (1.2-3.4); LYMPH % 27.7 % (22.0-35.0); MEAN CELL VOLUME 102.1 fl (80.0-105.0); MEAN CORPUSCULAR HEMOGLOBIN 31.6 pg (25.0-35.0); MEAN CORPUSCULAR HGB CONC 30.9 g/dl (31.0-37.0); MEAN PLATELET VOLUME 8.8 fl (7.0-11.0); MONO # 0.9 (0.1-0.6); MONO % 14.3 % (1.0-6.0); RBC 2.82 10^6/uL (3.5-6.1)
[2019-01-28 07:53] LABS: HEMOGLOBIN 8.9 g/dL (12.0-16.0)
[2019-01-28] MEDS: Albuterol-Ipratrop 3 mg / 0.5 (3 ml) UD IH SCH ×4 (08:13→19:44)
[2019-01-28] MEDS: Potassium Chloride 10 mEq ER Tab PO SCH (08:47)
[2019-01-28 09:05] LABS: INR 1.14; PROTHROMBIN TIME 12.9 SECONDS (9.4-12.5)
[2019-01-28] MEDS ORDERED: Pantoprazole 40 mg EC Tab PO SCH (10:00)
--- NOTE | 2019-01-28 10:16 | CP.PCM.APN ---
Subjective - Date & Time of Evaluation Date of Evaluation: 01/28/19 Time of Evaluation: 10:12 - Subjective Subjective: pt seen and examined at bedside, pt asleep in NAD Review of Systems - Review of Systems All systems: reviewed and no additional remarkable complaints except Objective - Vital Signs/Intake and Output Vital Signs (last 24 hours): Temp Pulse Resp BP Pulse Ox 98 F 73 18 196/83 H 98 01/28/19 06:00 01/28/19 08:48 01/28/19 06:00 01/28/19 08:48 01/28/19 06:00 Intake and Output: 01/28/19 01/28/19 06:59 18:59 Intake Total 620 Output Total 1500 Balance -880 - Medications Medications: Current Medications Acetaminophen (Tylenol 325mg Tab) 650 mg PO Q4 PRN PRN Reason: Fever >100.4 F Albuterol/Ipratropium (Duoneb 3 Mg/0.5 Mg (3 Ml) Ud) 3 ml IH QIDRESP [facility] Last Admin: 01/28/19 08:13 Dose: 3 ml Clonidine HCl (Catapres) 0.1 mg PO Q6H PRN PRN Reason: Systolic Blood Pressure Furosemide (Lasix) 20 mg PO DAILY [facility] Hydralazine HCl (Apresoline) 50 mg PO QID [facility] Levetiracetam (Keppra) 500 mg PO BID [facility] Magnesium Oxide (Mag-Ox) 400 mg PO BID [facility] Metoprolol Tartrate (Lopressor) 50 mg PO BRKDIN [facility] Last Admin: 01/28/19 08:48 Dose: 50 mg Mirtazapine (Remeron) 30 mg PO HS [facility] Last Admin: 01/27/19 23:33 Dose: 30 mg Oxycodone HCl (Oxycodone Immediate Release Tab) 15 mg PO Q8H PRN PRN Reason: Pain, severe (8-10) Last Admin: 01/27/19 23:33 Dose: 15 mg Pantoprazole Sodium (Protonix Ec Tab) 40 mg PO DAILY [facility] Potassium Chloride (Klor-Con 10) 10 meq PO QD7 [facility] Last Admin: 01/28/19 08:47 Dose: 10 meq Trazodone HCl (Desyrel) 50 mg PO [facility] Last Admin: 01/27/19 23:32 Dose: 50 mg Valsartan (Diovan) 320 mg PO DAILY [facility] Zolpidem Tartrate (Ambien) 5 mg PO HS PRN; Protocol PRN Reason: Sleep - Labs Labs: 01/28/19 07:00 01/28/19 07:00 PT 12.9 SECONDS (9.4-12.5) H 01/28/19 08:56 INR 1.14 01/28/19 08:56 APTT 30.7 Seconds (26.9-38.3) 01/27/19 14:37 - Constitutional Appears: Older Than Stated Age, Cachectic, Chronically Ill - Head Exam Head Exam: NORMAL INSPECTION - Eye Exam Eye Exam: Normal appearance - Cardiovascular Exam Cardiovascular Exam: +S1, +S2 - Psychiatric Exam Psychiatric exam: Flat Affect, Normal Mood - Skin Skin Exam: Warm Assessment and Plan - Assessment and Plan (Free Text) Plan: ITS Impressions Chest/Abdomen/Pelvis CT 01/27/19 14:18 IMPRESSION: Moderate-sized left effusion with mild atelectasis left upper and lower lobes. Trace right-sided effusion with minimal right basilar atelectasis. Endovascular repair of thoracic aortic aneurysm. There is infrarenal abdominal aortic aneurysm which measures up to approximately 4 cm in greatest dimension. Mild fatty hepatic infiltration with a minimal central intrahepatic biliary ductal dilatation. Splenomegaly. Possible varices left upper quadrant of the abdomen. Urinary bladder is collapsed about an in situ unclamped Bush catheter. Bladder wall thickening likely due to collapse however correlation with urinalysis recommended to exclude cystitis or other intrinsic/invasive wall lesion. Note that the bladder is partially obscured by streak and beam hardening artifact arising from left total hip replacement. What is felt to represent uterus exhibits low-attenuation endometrium. Recommend follow-up pelvic ultrasound to exclude endometrial lesion. Note that the uterus is partially obscured by streak and beam hardening artifact arising from left total hip replacement. Slight wall thickening of the rectum; consider follow-up sigmoidoscopy to exclude infarct all wall lesion. Head CT 01/27/19 14:20 IMPRESSION: Slightly limited motion degraded study. No acute intracranial hemorrhage. Redemonstrated is a large chronic infarct that involves most the right cerebral hemisphere (MCA distribution) there is involvement of most of the right lateral basal ganglia, internal capsule and posterior basal ganglia. There is sparing of the occipital pole ([employer] distribution).. There is also mild diffuse/confluent chronic periventricular white matter ischemic changes and several additional more discrete bilateral basal nuclei lacunar type infarcts as well. Note that the possibility of a small hyperacute infarct cannot be excluded on this study. Moderate generalized volume loss not withstanding slight ex vacuo dilatation of the right lateral ventricle. 78 year old female with history of A Fib on coumadin, CVA, left sided paresis, aortic direction, sacral decubiti and seizure disorder who presented with diffuse bruising over her chest, abdomen, and arms for the past week. pt now admitted for further eval and treatemetn of her acute anemia in the settimg of Afib on coumadin. pt with GI and heme/onc consultation and workup/treatment in progress Plan: Anemia -Hgb 6.9 on admission -s/p 1 unit PRBC with repeat Hgb 8.9 today, Gen Bruising holding warfarin positive Ua, follow urine culture moderate size left effusion, IV Azactam on board follow up labs ordered will discuss plan of care with pmd and consultants BPCI/TIC - BPCIA/TIC Educated pt/family on BPCIA/CIR/Med to Bed Programs: Yes Flyers given, including [facility] Beneficiary letter: Yes Pt/family verbalized understanding & agreed to program: Yes
[2019-01-28] MEDS: levETIRAcetam 500 mg/5ml UD cups PO SCH ×2 (10:38→18:21)
[2019-01-28] MEDS: Magnesium Oxide 400 mg Tab UD PO SCH ×2 (10:44→18:21)
--- NOTE | 2019-01-28 12:31 | RAD ---
Date of service: 01/27/2019 PROCEDURE: CHEST RADIOGRAPH, 1 VIEW HISTORY: low hgb/ bruising COMPARISON: 02/06/2018 FINDINGS: LUNGS: Clear. PLEURA: No pneumothorax or pleural fluid seen. CARDIOVASCULAR: Aortic calcification. Aortic stent. Normal heart OSSEOUS STRUCTURES: No significant abnormalities. VISUALIZED UPPER ABDOMEN: Normal. OTHER FINDINGS: Calcified breast implants IMPRESSION: No active disease.
[2019-01-28 12:45] LABS: FOLATE > 20.0 ng/mL
[2019-01-28] MEDS: oxyCODONE 15 mg Immediate Release Tab PO PRN (21:12)
--- NOTE | 2019-01-29 08:23 | CP.PCM.PN ---
<Luis Alberto Simmons - Last Filed: 01/29/19 19:18> Subjective - Date & Time of Evaluation Date of Evaluation: 01/29/19 Time of Evaluation: 06:00 - Subjective Subjective: Luis Alberto Simmons PGY2 Heme/Onc Progress Note for Dr. Sanchez Patient seen and examined bedside in AM. No acute issues overnight. Patient complains of abdominal pain and wants pain medication for decubitus ulcer. Denies any other complaints. Objective - Vital Signs/Intake and Output Vital Signs (last 24 hours): Temp Pulse Resp BP Pulse Ox 97.4 F L 93 H 20 143/55 L 97 01/29/19 06:00 01/29/19 06:00 01/29/19 06:00 01/29/19 06:00 01/29/19 06:00 Intake and Output: 01/29/19 01/29/19 06:59 18:59 Intake Total 0 Output Total 300 Balance -300 - Medications Medications: Current Medications Acetaminophen (Tylenol 325mg Tab) 650 mg PO Q4 PRN PRN Reason: Fever >100.4 F Albuterol/Ipratropium (Duoneb 3 Mg/0.5 Mg (3 Ml) Ud) 3 ml IH QIDRESP [facility] Last Admin: 01/28/19 19:44 Dose: 3 ml Clonidine HCl (Catapres) 0.1 mg PO Q6H PRN PRN Reason: Systolic Blood Pressure Furosemide (Lasix) 20 mg PO DAILY [facility] Last Admin: 01/28/19 10:43 Dose: 20 mg Hydralazine HCl (Apresoline) 50 mg PO QID [facility] Last Admin: 01/28/19 21:13 Dose: 50 mg Levetiracetam (Keppra) 500 mg PO BID [facility] Last Admin: 01/28/19 18:21 Dose: 500 mg Magnesium Oxide (Mag-Ox) 400 mg PO BID [facility] Last Admin: 01/28/19 18:21 Dose: 400 mg Metoprolol Tartrate (Lopressor) 50 mg PO BRKDIN [facility] Last Admin: 01/28/19 18:26 Dose: Not Given Mirtazapine (Remeron) 30 mg PO HS [facility] Last Admin: 01/28/19 21:15 Dose: 30 mg Oxycodone HCl (Oxycodone Immediate Release Tab) 15 mg PO Q8H PRN PRN Reason: Pain, severe (8-10) Last Admin: 01/28/19 21:12 Dose: 15 mg Pantoprazole Sodium (Protonix Inj) 40 mg IVP Q12 [facility] Last Admin: 01/28/19 21:13 Dose: 40 mg Potassium Chloride (Klor-Con 10) 10 meq PO QD7 [facility] Last Admin: 01/28/19 08:47 Dose: 10 meq Trazodone HCl (Desyrel) 50 mg PO HS [facility] Last Admin: 01/28/19 21:15 Dose: 50 mg Valsartan (Diovan) 320 mg PO DAILY [facility] Last Admin: 01/28/19 10:44 Dose: 320 mg Vitamin B Complex/Vit C/Folic Acid (Nephro-Mundo) 1 tab PO 0800 [facility] Zolpidem Tartrate (Ambien) 5 mg PO HS PRN; Protocol PRN Reason: Sleep - Labs Labs: 01/28/19 07:00 01/28/19 07:00 PT 12.9 SECONDS (9.4-12.5) H 01/28/19 08:56 INR 1.14 01/28/19 08:56 APTT 30.7 Seconds (26.9-38.3) 01/27/19 14:37 - Constitutional Appears: No Acute Distress - Head Exam Head Exam: ATRAUMATIC, NORMAL INSPECTION, NORMOCEPHALIC - Eye Exam Eye Exam: Normal appearance - ENT Exam ENT Exam: Mucous Membranes Moist - Respiratory Exam Respiratory Exam: NORMAL BREATHING PATTERN - GI/Abdominal Exam GI & Abdominal Exam: Soft. absent: Tenderness - Extremities Exam Extremities Exam: absent: Pedal Edema, Tenderness - Neurological Exam Neurological Exam: Alert, Awake, Oriented x3 - Skin Additional comments: echymosis present bilateral arms, chest, upper abdomen Assessment and Plan - Assessment and Plan (Free Text) Assessment: 78 year old female with history of A Fib on coumadin, CVA , left sided paresis, aortic direction, sacral decubiti and seizure disorder who presented with diffus e bruising over her chest, abdomen, and arms for the past week. Plan: Anemia -Hgb 6.9 on admission -s/p 1 unit PRBC -repeat Hgb 8.7 from this am -MCV of 102.1 -iron studies -continue to monitor -Chest abd pelvis CT showed Mild fatty hepatic infiltration with a minimal c entral intrahepatic biliary ductal dilatation. Splenomegaly. Possible varices left upper quadrant of the abdomen. Slight wall thickening of the rectum; consider follow-up sigmoidoscopy to exclude infarct all wall lesion. -retic count, peripheral smear pending -GI will consider EGD on Friday if needed, to r/o varices Echymosis -hold warfarin -likely due to mild trauma -B12 and folate within normal range -increased fibrin split products -decrease fibrinogen - B complex UTI -cultures pending -ABx per ID, follow recs <Vandana Sanchez P - Last Filed: 01/31/19 17:41> Objective - Vital Signs/Intake and Output Vital Signs (last 24 hours): Temp Pulse Resp BP Pulse Ox 98.2 F 64 18 110/42 L 96 01/31/19 11:37 01/31/19 14:44 01/31/19 11:37 01/31/19 14:44 01/31/19 05:38 Intake and Output: 01/31/19 01/31/19 06:59 18:59 Intake Total 240 Output Total 500 Balance -260 - Medications Medications: Current Medications Acetaminophen (Tylenol 325mg Tab) 650 mg PO Q4 PRN PRN Reason: Fever >100.4 F Albuterol/Ipratropium (Duoneb 3 Mg/0.5 Mg (3 Ml) Ud) 3 ml IH QIDRESP [facility] Last Admin: 01/31/19 16:02 Dose: 3 ml Clonidine HCl (Catapres) 0.1 mg PO Q6H PRN PRN Reason: Systolic Blood Pressure Furosemide (Lasix) 20 mg PO DAILY [facility] Last Admin: 01/31/19 09:43 Dose: 20 mg Hydralazine HCl (Apresoline) 50 mg PO QID [facility] Last Admin: 01/31/19 14:44 Dose: Not Given Meropenem/Sodium Chloride (Merrem Iv 500 Mg/Ns 50 Ml) 500 mg in 50 mls @ 100 mls/hr IVPB Q8 [facility]; Protocol Stop: 02/06/19 06:01 Last Admin: 01/31/19 14:44 Dose: 100 mls/hr Levetiracetam (Keppra) 500 mg PO BID [facility] Last Admin: 01/31/19 09:42 Dose: 500 mg Magnesium Oxide (Mag-Ox) 400 mg PO BID [facility] Last Admin: 01/31/19 09:43 Dose: 400 mg Metoprolol Tartrate (Lopressor) 50 mg PO BRKDIN [facility] Last Admin: 01/31/19 08:56 Dose: 50 mg Mirtazapine (Remeron) 30 mg PO HS [facility] Last Admin: 01/30/19 21:30 Dose: 30 mg Oxycodone HCl (Oxycodone Immediate Release Tab) 15 mg PO Q8H PRN PRN Reason: Pain, severe (8-10) Last Admin: 01/31/19 06:36 Dose: 15 mg Pantoprazole Sodium (Protonix Inj) 40 mg IVP Q12 [facility] Last Admin: 01/31/19 09:43 Dose: 40 mg Potassium Chloride (Klor-Con 10) 10 meq PO QD7 [facility] Last Admin: 01/31/19 08:56 Dose: 10 meq Trazodone HCl (Desyrel) 50 mg PO HS [facility] Last Admin: 01/30/19 21:30 Dose: 50 mg Valsartan (Diovan) 320 mg PO DAILY [facility] Last Admin: 01/31/19 09:43 Dose: 320 mg Vitamin B Complex/Vit C/Folic Acid (Nephro-Mundo) 1 tab PO 0800 [facility] Last Admin: 01/31/19 08:56 Dose: 1 tab Zolpidem Tartrate (Ambien) 5 mg PO HS PRN; Protocol PRN Reason: Sleep - Labs Labs: 01/29/19 08:30 01/29/19 09:00 PT 12.9 SECONDS (9.4-12.5) H 01/28/19 08:56 INR 1.14 01/28/19 08:56 APTT 30.7 Seconds (26.9-38.3) 01/27/19 14:37 Attending/Attestation - Attestation I have personally seen and examined this patient.: Yes I have fully participated in the care of the patient.: Yes I have reviewed all pertinent clinical information, including history, physical exam and plan: Yes
--- NOTE | 2019-01-29 08:25 | HP ---
DATE OF EXAM: 01/27/2019 CHIEF COMPLAINT: The patient was transferred to emergency room because of blood work as outpatient showed hemoglobin of 6. HISTORY OF PRESENT ILLNESS: The patient is a 78-year-old female very well known to me. She came in with a low hemoglobin of 6 as outpatient. She denied any pain other than the chronic pain in her body from arthritis and being in the bed, left hip pain and chronic back pain. The patient denied any black tarry stools. Denied any vomiting blood. No chest pain. She did have a history of retroperitoneal bleed in the past. The patient has been maintained on a small dose of Coumadin because of chronic atrial fibrillation with just slightly elevated PT/INR, and she has been stable for like 6-8 months or more from that with no complications. Recently, blood count went down. She has no other complaint except severe anemia. She does have a history of unremarkable medical problems including chronic hep C, chronic liver disease, thrombocytopenia, recurrent bleeding, urinary tract infection, pneumonia, dysphagia, CVA, aortic aneurysm, carotid stenosis, hypercholesteremia, difficult control blood pressure and hypertension. The patient has been taking care by health aide that comes on a regular basis, also seeing the patient in home with blood work and also her daughter is very supportive and very caring about her. PAST MEDICAL HISTORY: As I mentioned above. ALLERGIES: PENICILLIN. SOCIAL HISTORY: She is at home by her daughter. She is in electric bed with good mattress. No drinking. No drug abuse. No other complaints and no other factors. She has two daughters supportive for her. MEDICATIONS AT HOME: She takes trazodone 50 mg; oxycodone 15 mg t.i.d.; Keppra 500 mg b.i.d.; Ambien at night; Diovan 320 mg; potassium 10 mEq; Protonix 40 mg; Remeron 30 mg; Lopressor 50 mg b.i.d.; mag oxide 400 mg p.o. b.i.d.; Lasix 20 mg every other day as needed; nebulizer treatment; hydralazine 100 mg t.i.d., we will check that with recent records; Coumadin 1 mg; baby aspirin 81 mg. REVIEW OF SYSTEMS: As in the present illness. She is bedridden. She has small tiny redness in the sacral area. She has . PHYSICAL EXAMINATION GENERAL: The patient was seen on 01/27/2019, she does not seem to be in distress. She opens her eyes. She recognized me and she responds with yes and no. VITAL SIGNS: Her temperature is 97.8, heart rate 51, blood pressure 144/43, respirations 15, saturating 100%. HEAD AND NECK: Normal. No JVD. No thyromegaly. CHEST: Clear bilaterally. CARDIAC: First sound and second sound normal. ABDOMEN: Nontender. EXTREMITIES: No edema. NEUROLOGIC: Left hemiplegia. SKIN: There are some bruises in the left arm mainly, few in the right. Also noted her left hip is tender. LABORATORY STUDIES: White count 5, hemoglobin 6.9, hematocrit 22.7, platelets 148. PT and PTT were within normal range, PT is 12.3, INR 1.11, PTT 30.7, 163 and products more than 40. Chemistry; sodium 137, potassium 4.3, chloride 99, bicarb 30, BUN 13, creatinine 0.6. Liver function test noted for AST 52, it is elevated; ALT and alkaline phosphatase are normal. CPK is less than 20. Troponin is 0.01 negative. Urine examination, the patient had white cells too numerous to count, lot of white cells, lot of epithelial cells, and large leukocyte esterase with lot of blood, also 25 to 30. We will do urine cultures and will follow up. The patient also had a CT abdomen and pelvis, there was no acute bleed. CT of the head, there is no acute bleed. There was gallbladder calcification, cholelithiasis on CT and also the patient had gallbladder with Bush catheter, possible viruses left upper quadrant of the abdomen, fatty liver and there was endoscopic vascular repair of thoracic aortic aneurysm. There was also intrarenal abdominal aortic aneurysm, which measured up to 4 cm in dimension. The patient had CT of the head, which showed slightly elevated large chronic infarction involving most of the right cerebral hemisphere as well. Chest x-ray was reported as no pneumonia. IMPRESSION AND PLAN 1. Acute severe anemia. We will transfuse the patient, get Hematology consult. We will monitor CBC in the morning. 2. Hypertension. We will resume her medications. We will monitor blood pressure, and we will further discuss with her daughter. 3. Chronic hepatitis C, thrombocytopenia. Platelet seems doing good and PTT repeat seems normal. We will continue to monitor H and H, maybe anemia secondary to GI. We will monitor if the patient is high risk for any procedures. 4. Cerebrovascular accident, chronic; hypertension, chronic. We will resume medications, followup. 5. Chronic bedridden patient. We have to be careful with ambulating the patient, continue to monitor her condition. Albin Forte MD
[2019-01-29] MEDS: Albuterol-Ipratrop 3 mg / 0.5 (3 ml) UD IH SCH ×4 (08:29→20:15)
[2019-01-29 08:54] LABS: HEMOGLOBIN 8.7 g/dL (12.0-16.0); MEAN CELL VOLUME 102.2 fl (80.0-105.0); MEAN CORPUSCULAR HEMOGLOBIN 31.2 pg (25.0-35.0); MEAN CORPUSCULAR HGB CONC 30.5 g/dl (31.0-37.0); MEAN PLATELET VOLUME 8.7 fl (7.0-11.0); RBC 2.79 10^6/uL (3.5-6.1); WHITE BLOOD COUNT 7.2 10^3/uL (4.5-11.0)
[2019-01-29] MEDS: Potassium Chloride 10 mEq ER Tab PO SCH (09:20)
[2019-01-29] MEDS: Multivitamin Vitamin B Complex (Nephro-Vite) Tab PO SCH (09:20)
[2019-01-29] MEDS: Magnesium Oxide 400 mg Tab UD PO SCH ×2 (09:20→18:41)
[2019-01-29] MEDS: oxyCODONE 15 mg Immediate Release Tab PO PRN (09:20)
[2019-01-29] MEDS: levETIRAcetam 500 mg/5ml UD cups PO SCH ×2 (09:20→18:41)
[2019-01-29 09:55] LABS: ALBUMIN 3.4 g/dL (3.0-4.8); ALT/SGPT 10 U/L (7-56); AST/SGOT 37 U/L (14-36); BLOOD UREA NITROGEN 16 mg/dL (7-21); CALCIUM 8.6 mg/dL (8.4-10.5); GFR NON-AFRICAN AMERICAN > 60
--- NOTE | 2019-01-29 11:18 | CP.PCM.CON ---
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 Patient is a poor historian, so most HPI obtained from chart review, health care providers. As per caregiver, patient is bedbound, and bruises easily when transferred from chair to bed. Denies any trauma or falls. Reports that she is compliant with all her meds. Denies hemoptysis, hematemesis, nausea, vomiting, hematochezia, melena, weight loss, bleeding from her gums, or hemarthrosis. Patient reports suprapubic, burning, constant pain for past few day, has an indwelling sy. Her last EGD was on 09/[address] Clarke, which showed medium sized hiatal hernia. Patient cannot recall last colonoscopy. Of note, on prior admissions in 10/2017, imaging showed cirrhotic liver, pancreatic head enlargement as well. Patient also had a paracentesis on 10/2017, 1.6 L drained, negative for malignancy on cytology. In ED, patient afebrile with stable vitals. Hgb 6.9, given 1 unit prbcs with Hgb 8.7 today. INR 1.14, warfarin was held. 12 point ROS obtained and neg, except as per HPI. PMHx: Cirrhosis 2/2 hep C, A Fib,CVA left sided paresis, bed ridden,contractures,seizure disorder, aortic aneurysm, chronic anemia,thrombocytopenia, UTI, constipation, diverticulitis, sepsis, dysphagia, left breast mass and indexing urinary catheter. Social History: Non smoker, no alcohol or drug use. Lives with daughter. Family History: Non contributory. Allergies: Penicillin PMD: Saleeb Review of Systems - Review of Systems All systems: reviewed and no additional remarkable complaints except Review of Systems: as per HPI Past Patient History - Infectious Disease Hx of Infectious Diseases: None - Tetanus Immunizations Tetanus Immunization: Unknown - Past Social History Smoking Status: Former Smoker - CARDIAC Hx Cardiac Disorders: Yes Hx Congestive Heart Failure: Yes Hx Hypercholesterolemia: Yes Hx Hypertension: Yes - PULMONARY Hx Respiratory Disorders: Yes Hx Pneumonia: Yes - NEUROLOGICAL Hx Neurological Disorder: Yes HX Cerebrovascular Accident: Yes (left side flaccid) Hx Seizures: Yes - HEENT Hx HEENT Problems: No - RENAL Hx Chronic Kidney Disease: Yes - ENDOCRINE/METABOLIC Hx Endocrine Disorders: No - HEMATOLOGICAL/ONCOLOGICAL Hx Blood Disorders: Yes (blood transfusion) Hx Anemia: Yes Hx Hepatitis C: Yes - INTEGUMENTARY Hx Dermatological Problems: Yes (genralized bruises) - MUSCULOSKELETAL/RHEUMATOLOGICAL Hx Falls: No - GASTROINTESTINAL Hx Gastrointestinal Disorders: Yes (aspiration precaution.Pureed diet.) - GENITOURINARY/GYNECOLOGICAL Hx Genitourinary Disorders: Yes (chronic sy) Hx Urinary Tract Infection: Yes - PSYCHIATRIC Hx Substance Use: No - SURGICAL HISTORY Hx Surgeries: Yes Hx Appendectomy: Yes Hx Cardiac Catheterization: Yes Hx Coronary Stent: Yes Hx Orthopedic Surgery: Yes ("right hip hemiarthroplasty") - ANESTHESIA Hx Anesthesia: Yes Hx Anesthesia Reactions: No Hx Malignant Hyperthermia: No Meds Allergies/Adverse Reactions: Allergies Allergy/AdvReac Type Severity Reaction Status Date / Time Penicillins AdvReac Intermediate RASH Verified 10/04/17 17:22 - Medications Medications: Current Medications Acetaminophen (Tylenol 325mg Tab) 650 mg PO Q4 PRN PRN Reason: Fever >100.4 F Albuterol/Ipratropium (Duoneb 3 Mg/0.5 Mg (3 Ml) Ud) 3 ml IH QIDRESP [facility] Last Admin: 01/29/19 08:29 Dose: 3 ml Clonidine HCl (Catapres) 0.1 mg PO Q6H PRN PRN Reason: Systolic Blood Pressure Furosemide (Lasix) 20 mg PO DAILY [facility] Last Admin: 01/29/19 09:21 Dose: 20 mg Hydralazine HCl (Apresoline) 50 mg PO QID [facility] Last Admin: 01/29/19 09:21 Dose: Not Given Levetiracetam (Keppra) 500 mg PO BID [facility] Last Admin: 01/29/19 09:20 Dose: 500 mg Magnesium Oxide (Mag-Ox) 400 mg PO BID [facility] Last Admin: 01/29/19 09:20 Dose: 400 mg Metoprolol Tartrate (Lopressor) 50 mg PO BRKDIN [facility] Last Admin: 01/29/19 09:21 Dose: 50 mg Mirtazapine (Remeron) 30 mg PO HS [facility] Last Admin: 01/28/19 21:15 Dose: 30 mg Oxycodone HCl (Oxycodone Immediate Release Tab) 15 mg PO Q8H PRN PRN Reason: Pain, severe (8-10) Last Admin: 01/29/19 09:20 Dose: 15 mg Pantoprazole Sodium (Protonix Inj) 40 mg IVP Q12 [facility] Last Admin: 01/29/19 09:23 Dose: 40 mg Potassium Chloride (Klor-Con 10) 10 meq PO QD7 [facility] Last Admin: 01/29/19 09:20 Dose: 10 meq Trazodone HCl (Desyrel) 50 mg PO HS [facility] Last Admin: 01/28/19 21:15 Dose: 50 mg Valsartan (Diovan) 320 mg PO DAILY [facility] Last Admin: 01/29/19 09:21 Dose: 320 mg Vitamin B Complex/Vit C/Folic Acid (Nephro-Mundo) 1 tab PO 0800 [facility] Last Admin: 01/29/19 09:20 Dose: 1 tab Zolpidem Tartrate (Ambien) 5 mg PO HS PRN; Protocol PRN Reason: Sleep Physical Exam - Constitutional Appears: Non-toxic, No Acute Distress - Head Exam Head Exam: ATRAUMATIC, NORMOCEPHALIC - Eye Exam Eye Exam: EOMI, PERRL. absent: Conjunctival injection, Nystagmus, Scleral icterus Pupil Exam: NORMAL ACCOMODATION, PERRL. absent: Irregular, Miosis, Mydriatic, Unequal - ENT Exam ENT Exam: Mucous Membranes Moist - Neck Exam Neck exam: Positive for: Full Rom - Respiratory Exam Respiratory Exam: Clear to Auscultation Bilateral, NORMAL BREATHING PATTERN. absent: Rhonchi, Wheezes - Cardiovascular Exam Cardiovascular Exam: Irregular Rhythm, +S1, +S2 - GI/Abdominal Exam GI & Abdominal Exam: Normal Bowel Sounds, Soft, Tenderness (suprapubic area tenderness). absent: Distended, Firm, Guarding, Rebound, Rigid - Extremities Exam Extremities exam: Positive for: normal inspection. Negative for: calf tenderness, pedal edema - Neurological Exam Neurological exam: Alert, Oriented x3 Additional comments: left sided paresis - Psychiatric Exam Psychiatric exam: Normal Affect - Skin Skin Exam: Warm Additional comments: + bruising noted under b/l breasts, b/l upper extremities Results - Vital Signs Recent Vital Signs: Last Vital Signs Temp 97.4 F L 01/29/19 06:00 Pulse 100 H 01/29/19 09:21 Resp 20 01/29/19 06:00 BP 137/63 01/29/19 09:21 Pulse Ox 97 01/29/19 06:00 - Labs Result Diagrams: 01/29/19 08:30 01/29/19 09:00 Labs: Laboratory Results - last 24 hr 01/28/19 01/29/19 01/29/19 08:25 08:30 09:00 WBC 7.2 RBC 2.79 L Hgb 8.7 L Hct 28.5 L MCV 102.2 MCH 31.2 MCHC 30.5 L RDW 21.0 H Plt Count 145 MPV 8.7 Sodium 138 Potassium 4.1 Chloride 102 Carbon Dioxide 28 Anion Gap 12 BUN 16 Creatinine 0.8 Est GFR ( Amer) > 60 Est GFR (Non-Af Amer) > 60 Random Glucose 85 Calcium 8.6 Total Bilirubin 1.0 AST 37 H ALT 10 Alkaline Phosphatase 70 Total Protein 6.9 Albumin 3.4 Globulin 3.4 Albumin/Globulin Ratio 1.0 L Vitamin B12 814 Folate > 20.0 Assessment & Plan - Assessment and Plan (Free Text) Assessment: # Macrocytic anemia # Suprapubic pain 2/2 UTI # Decompensated cirrhosis 2/2 Hep C, with history of prior ascites # Splenomegaly # Chest bruising, likely from trauma from moving patient, as bedridden patient # Hx of afib on Coumadin # CVA with left sided paresis # Seizure disorder # Diverticulitis # indwelling sy catheter - Chest abd pelvis CT showed Mild fatty hepatic infiltration with a minimal central intrahepatic biliary ductal dilatation. Splenomegaly. Possible varices left upper quadrant of the abdomen. Slight wall thickening of the rectum; consider follow-up sigmoidoscopy to exclude infarct all wall lesion. - Last EGD was on 09/2016 w Clarke: Medium sized hiatal hernia. - Hgb 6.7 on admission, transfused 1 unit prbcs. - B12, folate normal - ordered retic count, peripheral smear - iron studies may not be useful currently, as patient has been already transfused - MELD 8 points, 1.9% estimated 3 month mortality - Will consider EGD on Friday if needed, to r/o varices - Recommend antibiotics for UTI, ID consult (since patient has a history of VRE) - Speech/swallow eval. For now, can continue with HHD, pureed. - Further recs per Dr Galindo. Case reviewed and discussed with GI fellow and Dr Galindo. <Maeve Galindo V - Last Filed: 01/29/19 23:13> Meds - Medications Medications: Current Medications Acetaminophen (Tylenol 325mg Tab) 650 mg PO Q4 PRN PRN Reason: Fever >100.4 F Albuterol/Ipratropium (Duoneb 3 Mg/0.5 Mg (3 Ml) Ud) 3 ml IH QIDRESP [facility] Last Admin: 01/29/19 15:34 Dose: 3 ml Clonidine HCl (Catapres) 0.1 mg PO Q6H PRN PRN Reason: Systolic Blood Pressure Furosemide (Lasix) 20 mg PO DAILY [facility] Last Admin: 01/29/19 09:21 Dose: 20 mg Hydralazine HCl (Apresoline) 50 mg PO QID [facility] Last Admin: 01/29/19 22:05 Dose: 50 mg Meropenem/Sodium Chloride (Merrem Iv 500 Mg/Ns 50 Ml) 500 mg in 50 mls @ 100 mls/hr IVPB Q8 [facility]; Protocol Stop: 02/06/19 06:01 Levetiracetam (Keppra) 500 mg PO BID [facility] Last Admin: 01/29/19 18:41 Dose: 500 mg Magnesium Oxide (Mag-Ox) 400 mg PO BID [facility] Last Admin: 01/29/19 18:41 Dose: 400 mg Metoprolol Tartrate (Lopressor) 50 mg PO BRKDIN [facility] Last Admin: 01/29/19 18:41 Dose: 50 mg Mirtazapine (Remeron) 30 mg PO HS [facility] Last Admin: 01/29/19 22:05 Dose: 30 mg Oxycodone HCl (Oxycodone Immediate Release Tab) 15 mg PO Q8H PRN PRN Reason: Pain, severe (8-10) Last Admin: 01/29/19 09:20 Dose: 15 mg Pantoprazole Sodium (Protonix Inj) 40 mg IVP Q12 [facility] Last Admin: 01/29/19 22:05 Dose: 40 mg Potassium Chloride (Klor-Con 10) 10 meq PO QD7 [facility] Last Admin: 01/29/19 09:20 Dose: 10 meq Trazodone HCl (Desyrel) 50 mg PO HS [facility] Last Admin: 01/29/19 22:05 Dose: 50 mg Valsartan (Diovan) 320 mg PO DAILY [facility] Last Admin: 01/29/19 09:21 Dose: 320 mg Vitamin B Complex/Vit C/Folic Acid (Nephro-Mundo) 1 tab PO 0800 [facility] Last Admin: 01/29/19 09:20 Dose: 1 tab Zolpidem Tartrate (Ambien) 5 mg PO HS PRN; Protocol PRN Reason: Sleep Results - Vital Signs Recent Vital Signs: Last Vital Signs Temp 98.5 F 01/29/19 17:23 Pulse 83 01/29/19 22:05 Resp 19 01/29/19 17:23 BP 152/66 H 01/29/19 22:05 Pulse Ox 97 01/29/19 06:00 - Labs Result Diagrams: 01/29/19 08:30 01/29/19 09:00 Labs: Laboratory Results - last 24 hr 01/29/19 01/29/19 01/29/19 08:30 09:00 11:00 WBC 7.2 RBC 2.79 L Hgb 8.7 L Hct 28.5 L MCV 102.2 MCH 31.2 MCHC 30.5 L RDW 21.0 H Plt Count 145 MPV 8.7 Differential Comment See pathology report Retic Count 8.00 H Sodium 138 Potassium 4.1 Chloride 102 Carbon Dioxide 28 Anion Gap 12 BUN 16 Creatinine 0.8 Est GFR ( Amer) > 60 Est GFR (Non-Af Amer) > 60 Random Glucose 85 Calcium 8.6 Total Bilirubin 1.0 AST 37 H ALT 10 Alkaline Phosphatase 70 Total Protein 6.9 Albumin 3.4 Globulin 3.4 Albumin/Globulin Ratio 1.0 L Procalcitonin 01/29/19 11:39 WBC RBC Hgb Hct MCV MCH MCHC RDW Plt Count MPV Differential Comment Retic Count Sodium Potassium Chloride Carbon Dioxide Anion Gap BUN Creatinine Est GFR ( Amer) Est GFR (Non-Af Amer) Random Glucose Calcium Total Bilirubin AST ALT Alkaline Phosphatase Total Protein Albumin Globulin Albumin/Globulin Ratio Procalcitonin 0.07 L Attending/Attestation - Attestation I have personally seen and examined this patient.: Yes I have fully participated in the care of the patient.: Yes I have reviewed all pertinent clinical information: Yes Notes (Text): This patient was seen and evaluated along with the resident earlier today. Some mild mild complaints of mild abdominal discomfort. Patient's donor relations manager was at bedside when we examined the patient. Slowly advance the diet. Diet patient's urine cultures showed polymicrobial Continue antibiotics as per ID status post transfusion follow-up of the hemoglobin We will discuss with the Dr. Forte before considering further endoscopic evaluation 01/29/19 23:09
--- NOTE | 2019-01-29 22:53 | CP.PCM.CON ---
History of Present Illness - History of Present Illness History of Present Illness: 78 year old female with PMH of atrial fibrillation, cerebrovascular accident, history of aortic dissection, seizure disorder, history of thrombocytopenia, HTN, hypercholesterolemia, chronic pain syndrome, history of decubitus ulcers, Chronic active hepatitis C, CVA with left hemiplegia, history of ESBL-producing E. coli UTI was brought in to [facility] [place] because of anemia, with note of bruises. Initial work up included urine cx because she was complaining of vague lower abdominal pain. She denies fever or chills, no nausea or vomiting, no chest pain, no SOB, no headache or dizziness, no diarrhea. Urine cx is showing multiple bacteria. Infectious Diseases consult is requested to further evaluate and manage. Review of Systems - Review of Systems All systems: reviewed and no additional remarkable complaints except (as per HPI) Past Patient History - Infectious Disease Hx of Infectious Diseases: None - Tetanus Immunizations Tetanus Immunization: Unknown - Past Social History Smoking Status: Former Smoker - CARDIAC Hx Cardiac Disorders: Yes Hx Congestive Heart Failure: Yes Hx Hypercholesterolemia: Yes Hx Hypertension: Yes - PULMONARY Hx Respiratory Disorders: Yes Hx Pneumonia: Yes - NEUROLOGICAL Hx Neurological Disorder: Yes HX Cerebrovascular Accident: Yes (left side flaccid) Hx Seizures: Yes - HEENT Hx HEENT Problems: No - RENAL Hx Chronic Kidney Disease: Yes - ENDOCRINE/METABOLIC Hx Endocrine Disorders: No - HEMATOLOGICAL/ONCOLOGICAL Hx Blood Disorders: Yes (blood transfusion) Hx Anemia: Yes Hx Hepatitis C: Yes - INTEGUMENTARY Hx Dermatological Problems: Yes (genralized bruises) - MUSCULOSKELETAL/RHEUMATOLOGICAL Hx Falls: No - GASTROINTESTINAL Hx Gastrointestinal Disorders: Yes (aspiration precaution.Pureed diet.) - GENITOURINARY/GYNECOLOGICAL Hx Genitourinary Disorders: Yes (chronic sy) Hx Urinary Tract Infection: Yes - PSYCHIATRIC Hx Substance Use: No - SURGICAL HISTORY Hx Surgeries: Yes Hx Appendectomy: Yes Hx Cardiac Catheterization: Yes Hx Coronary Stent: Yes Hx Orthopedic Surgery: Yes ("right hip hemiarthroplasty") - ANESTHESIA Hx Anesthesia: Yes Hx Anesthesia Reactions: No Hx Malignant Hyperthermia: No Meds Allergies/Adverse Reactions: Allergies Allergy/AdvReac Type Severity Reaction Status Date / Time Penicillins AdvReac Intermediate RASH Verified 10/04/17 17:22 - Medications Medications: Current Medications Acetaminophen (Tylenol 325mg Tab) 650 mg PO Q4 PRN PRN Reason: Fever >100.4 F Albuterol/Ipratropium (Duoneb 3 Mg/0.5 Mg (3 Ml) Ud) 3 ml IH QIDRESP [facility] Last Admin: 01/29/19 11:17 Dose: 3 ml Clonidine HCl (Catapres) 0.1 mg PO Q6H PRN PRN Reason: Systolic Blood Pressure Furosemide (Lasix) 20 mg PO DAILY [facility] Last Admin: 01/29/19 09:21 Dose: 20 mg Hydralazine HCl (Apresoline) 50 mg PO QID [facility] Last Admin: 01/29/19 09:21 Dose: Not Given Meropenem 250 mg/ Sodium (Chloride) 100 mls @ 100 mls/hr IVPB ONCE ONE; Protocol Stop: 01/29/19 12:50 Daptomycin 310 mg/ Sodium (Chloride) 100 mls @ 200 mls/hr IV ONCE ONE; Protocol Stop: 01/29/19 12:29 Levetiracetam (Keppra) 500 mg PO BID [facility] Last Admin: 01/29/19 09:20 Dose: 500 mg Magnesium Oxide (Mag-Ox) 400 mg PO BID [facility] Last Admin: 01/29/19 09:20 Dose: 400 mg Metoprolol Tartrate (Lopressor) 50 mg PO BRKDIN [facility] Last Admin: 01/29/19 09:21 Dose: 50 mg Mirtazapine (Remeron) 30 mg PO HS [facility] Last Admin: 01/28/19 21:15 Dose: 30 mg Oxycodone HCl (Oxycodone Immediate Release Tab) 15 mg PO Q8H PRN PRN Reason: Pain, severe (8-10) Last Admin: 01/29/19 09:20 Dose: 15 mg Pantoprazole Sodium (Protonix Inj) 40 mg IVP Q12 [facility] Last Admin: 01/29/19 09:23 Dose: 40 mg Potassium Chloride (Klor-Con 10) 10 meq PO QD7 [facility] Last Admin: 01/29/19 09:20 Dose: 10 meq Trazodone HCl (Desyrel) 50 mg PO HS [facility] Last Admin: 01/28/19 21:15 Dose: 50 mg Valsartan (Diovan) 320 mg PO DAILY [facility] Last Admin: 01/29/19 09:21 Dose: 320 mg Vitamin B Complex/Vit C/Folic Acid (Nephro-Mundo) 1 tab PO 0800 [facility] Last Admin: 01/29/19 09:20 Dose: 1 tab Zolpidem Tartrate (Ambien) 5 mg PO HS PRN; Protocol PRN Reason: Sleep Physical Exam - Constitutional Appears: Chronically Ill - Head Exam Head Exam: NORMAL INSPECTION - Respiratory Exam Respiratory Exam: Decreased Breath Sounds - Cardiovascular Exam Cardiovascular Exam: +S1, +S2 - GI/Abdominal Exam GI & Abdominal Exam: Soft. absent: Tenderness Results - Vital Signs Recent Vital Signs: Last Vital Signs Temp 97.4 F L 01/29/19 06:00 Pulse 100 H 01/29/19 09:21 Resp 20 01/29/19 06:00 BP 137/63 01/29/19 09:21 Pulse Ox 97 01/29/19 06:00 - Labs Result Diagrams: 01/29/19 08:30 01/29/19 09:00 Labs: Laboratory Results - last 24 hr 01/28/19 01/29/19 01/29/19 08:25 08:30 09:00 WBC 7.2 RBC 2.79 L Hgb 8.7 L Hct 28.5 L MCV 102.2 MCH 31.2 MCHC 30.5 L RDW 21.0 H Plt Count 145 MPV 8.7 Differential Comment Retic Count Sodium 138 Potassium 4.1 Chloride 102 Carbon Dioxide 28 Anion Gap 12 BUN 16 Creatinine 0.8 Est GFR ( Amer) > 60 Est GFR (Non-Af Amer) > 60 Random Glucose 85 Calcium 8.6 Total Bilirubin 1.0 AST 37 H ALT 10 Alkaline Phosphatase 70 Total Protein 6.9 Albumin 3.4 Globulin 3.4 Albumin/Globulin Ratio 1.0 L Vitamin B12 814 Folate > 20.0 01/29/19 11:00 WBC RBC Hgb Hct MCV MCH MCHC RDW Plt Count MPV Differential Comment See pathology report Retic Count 8.00 H Sodium Potassium Chloride Carbon Dioxide Anion Gap BUN Creatinine Est GFR ( Amer) Est GFR (Non-Af Amer) Random Glucose Calcium Total Bilirubin AST ALT Alkaline Phosphatase Total Protein Albumin Globulin Albumin/Globulin Ratio Vitamin B12 Folate Assessment & Plan - Assessment and Plan (Free Text) Plan: Assessment consider UTI with VRE, ESBL Klebsiella and E. coli history of sepsis due to right lower lobe HCAP history of decubitus ulcer stage 2 and left heel ulcer infection with MRSA history of left rectus sheath hematoma history of acute pancreatitis Stage 4 decubitus ulcer history of right lower lobe healthcare-associated pneumonia history of ESBL E. coli and Enterococcus UTI history of ESBL E. coli UTI atrial fibrillation cerebrovascular accident history of aortic dissection seizure disorder history of thrombocytopenia HTN hypercholesterolemia chronic pain syndrome history of decubitus ulcers chronic active hepatitis C Plan ordered repeat urine cx and started with a dose of IV Daptomycin and started Merrem will monitor clinically
--- NOTE | 2019-01-30 02:34 | PN ---
DATE: 01/28/2019 SUBJECTIVE: The patient is stable, supine in the bed, and in no distress. Seen by Oncology and Hematology and other consultants. PHYSICAL EXAMINATION: VITAL SIGNS: Temperature 97.3, heart rate 73, blood pressure 142/64, respirations 18, and saturation 99%. HEAD AND NECK: Normal. No JVD. No thyromegaly. CHEST: Clear bilaterally. CARDIAC: First sound and second sound normal. ABDOMEN: Soft and nontender. EXTREMITIES: Minimal ankle edema. Both heels are . BACK: The patient has a wedge in her back area to support her back. The patient is bedridden. LABORATORY STUDIES: White count 6, hemoglobin 8.9, hematocrit 28.8, and platelets 121. Chemistry; sodium 138, potassium 4.6, chloride 103, bicarb 28, BUN 12, and creatinine 0.6. Calcium 8.3. AST 41, ALT 17, and alkaline phosphatase 64. Troponin is negative. ASSESSMENT AND PLAN: 1. Acute drop in her hemoglobin, anemia. The patient's possible source could be gastrointestinal source, no evidence of retroperitoneal bleeding. We will get GI, Dr. Galindo to see the patient. The patient is status post transfusion, seen by Dr. Sanchez. 2. Hypertension, stable. Continue current medications. We are adding hydralazine. The patient is otherwise stable. 3. Chronic atrial fibrillation, chronic hepatitis C, and thrombocytopenia is improving. Continue current therapy. 4. Chronic seizures. Continue Keppra. Plan, continue current therapy. Followup clinically. The patient also has a history of left cerebrovascular accident, stage II decubitus, and the patient is bedridden. We will continue moving the patient for one side to the other. 5. Chronic osteoarthritis, chronic back and joint pain, and left hip dislocation. Continue oxycodone p.r.n. 15 mg every 8 hours p.r.n. 6. Chronic obstructive pulmonary disease. Continue nebulizer treatment. Continue current therapy. Follow up clinically. Albin Forte MD
--- NOTE | 2019-01-30 02:57 | PN ---
DATE: 01/29/2019 SUBJECTIVE: The patient is stable. No new complaints. No evidence of any active GI bleed. No nausea. No vomiting. PHYSICAL EXAMINATION: VITAL SIGNS: Afebrile. The patient's temperature 98.5, heart rate 77, blood pressure 118/45, and respirations 19. HEAD AND NECK: Normal. No JVD. No thyromegaly. CHEST: Clear bilateral. Diminished breath sounds. CARDIAC: First sound and second sound normal. ABDOMEN: Soft and nontender. EXTREMITIES: Mild ankle edema. NEUROLOGIC: Normal. LABORATORY STUDIES: White count 7.2, hemoglobin 8.7, hematocrit 28.5, and platelets 145. Chemistry; sodium 138, potassium 4.1, chloride 102, bicarb 28, BUN 16, and creatinine 0.8. The patient also had an AST slightly elevated at 37, ALT 10, and alkaline phosphatase 70. Procalcitonin 0.07. The patient also had microbiology. She does have Gram-positive and Gram-negative wound culture and also urine culture shows Klebsiella pneumoniae, Escherichia coli, and VRE. IMPRESSION AND PLAN: 1. Urinary tract infection, sacral decubitus. We will get an ID consultations. Continue current therapy. The patient will be started on Merrem by Dr. Bullard. We will continue that IV every 8 hours. 2. Hypertension. Continue hydralazine 50 mg 4 times a day, clonidine p.r.n., Diovan 320 and we will add Lasix 20 p.o. daily from now, and continue metoprolol 50 mg b.i.d. 3. Chronic back pain. Continue oxycodone. 4. Chronic insomnia. Appetite loss, continue Remeron, and vitamin D complex. 5. Chronic obstructive pulmonary disease. Continue DuoNeb. 6. History of seizure disorders. Continue Keppra. 7. Chronic anemia. The patient has history of retroperitoneal bleed, possible GI etiology. We will follow up with Gastroenterology about any further plans for endoscopy. Continue current therapy. Albin Forte MD
[2019-01-30] MEDS: MEROPENEM 500 MG in NS 500 MG/50 ML BAG IVPB SCH ×3 (05:33→21:32)
[2019-01-30] MEDS: Albuterol-Ipratrop 3 mg / 0.5 (3 ml) UD IH SCH ×4 (08:01→20:46)
[2019-01-30] MEDS: oxyCODONE 15 mg Immediate Release Tab PO PRN ×2 (08:59→21:31)
[2019-01-30] MEDS: levETIRAcetam 500 mg/5ml UD cups PO SCH ×2 (08:59→17:45)
[2019-01-30] MEDS: Multivitamin Vitamin B Complex (Nephro-Vite) Tab PO SCH (08:59)
[2019-01-30] MEDS: Magnesium Oxide 400 mg Tab UD PO SCH ×2 (09:00→17:45)
[2019-01-30] MEDS: Potassium Chloride 10 mEq ER Tab PO SCH (09:00)
--- NOTE | 2019-01-30 11:27 | CP.PCM.PN ---
Subjective - Date & Time of Evaluation Date of Evaluation: 01/30/19 Time of Evaluation: 09:35 - Subjective Subjective: Resting in bed, afebrile, not in distress. Objective - Vital Signs/Intake and Output Vital Signs (last 24 hours): Temp Pulse Resp BP Pulse Ox 98.5 F 83 19 152/66 H 97 01/29/19 17:23 01/29/19 22:05 01/29/19 17:23 01/29/19 22:05 01/29/19 06:00 Intake and Output: 01/29/19 01/30/19 18:59 06:59 Intake Total 200 Balance 200 - Medications Medications: Current Medications Acetaminophen (Tylenol 325mg Tab) 650 mg PO Q4 PRN PRN Reason: Fever >100.4 F Albuterol/Ipratropium (Duoneb 3 Mg/0.5 Mg (3 Ml) Ud) 3 ml IH QIDRESP [facility] Last Admin: 01/29/19 15:34 Dose: 3 ml Clonidine HCl (Catapres) 0.1 mg PO Q6H PRN PRN Reason: Systolic Blood Pressure Furosemide (Lasix) 20 mg PO DAILY [facility] Last Admin: 01/29/19 09:21 Dose: 20 mg Hydralazine HCl (Apresoline) 50 mg PO QID [facility] Last Admin: 01/29/19 22:05 Dose: 50 mg Meropenem/Sodium Chloride (Merrem Iv 500 Mg/Ns 50 Ml) 500 mg in 50 mls @ 100 mls/hr IVPB Q8 [facility]; Protocol Stop: 02/06/19 06:01 Levetiracetam (Keppra) 500 mg PO BID [facility] Last Admin: 01/29/19 18:41 Dose: 500 mg Magnesium Oxide (Mag-Ox) 400 mg PO BID [facility] Last Admin: 01/29/19 18:41 Dose: 400 mg Metoprolol Tartrate (Lopressor) 50 mg PO BRKDIN [facility] Last Admin: 01/29/19 18:41 Dose: 50 mg Mirtazapine (Remeron) 30 mg PO HS [facility] Last Admin: 01/29/19 22:05 Dose: 30 mg Oxycodone HCl (Oxycodone Immediate Release Tab) 15 mg PO Q8H PRN PRN Reason: Pain, severe (8-10) Last Admin: 01/29/19 09:20 Dose: 15 mg Pantoprazole Sodium (Protonix Inj) 40 mg IVP Q12 [facility] Last Admin: 01/29/19 22:05 Dose: 40 mg Potassium Chloride (Klor-Con 10) 10 meq PO QD7 [facility] Last Admin: 01/29/19 09:20 Dose: 10 meq Trazodone HCl (Desyrel) 50 mg PO HS [facility] Last Admin: 01/29/19 22:05 Dose: 50 mg Valsartan (Diovan) 320 mg PO DAILY [facility] Last Admin: 01/29/19 09:21 Dose: 320 mg Vitamin B Complex/Vit C/Folic Acid (Nephro-Mundo) 1 tab PO 0800 [facility] Last Admin: 01/29/19 09:20 Dose: 1 tab Zolpidem Tartrate (Ambien) 5 mg PO HS PRN; Protocol PRN Reason: Sleep - Labs Labs: 01/29/19 08:30 01/29/19 09:00 PT 12.9 SECONDS (9.4-12.5) H 01/28/19 08:56 INR 1.14 01/28/19 08:56 APTT 30.7 Seconds (26.9-38.3) 01/27/19 14:37 - Constitutional Appears: Chronically Ill - Head Exam Head Exam: NORMAL INSPECTION - Respiratory Exam Respiratory Exam: Decreased Breath Sounds - Cardiovascular Exam Cardiovascular Exam: +S1, +S2 - GI/Abdominal Exam GI & Abdominal Exam: Soft. absent: Tenderness Assessment and Plan - Assessment and Plan (Free Text) Plan: Assessment consider complicated UTI with VRE, ESBL Klebsiella and E. coli in this patient w ith [place] catheter history of sepsis due to right lower lobe HCAP history of decubitus ulcer stage 2 and left heel ulcer infection with MRSA history of left rectus sheath hematoma history of acute pancreatitis Stage 4 decubitus ulcer history of right lower lobe healthcare-associated pneumonia history of ESBL E. coli and Enterococcus UTI history of ESBL E. coli UTI atrial fibrillation cerebrovascular accident history of aortic dissection seizure disorder history of thrombocytopenia HTN hypercholesterolemia chronic pain syndrome history of decubitus ulcers chronic active hepatitis C Plan ordered repeat urine cx and gave a dose of IV Daptomycin and continue Merrem day 2 will continue to monitor clinically
--- NOTE | 2019-01-30 16:36 | CP.PCM.PN ---
<ScoobyAngelica - Last Filed: 01/30/19 18:01> Subjective - Date & Time of Evaluation Date of Evaluation: 01/30/19 Time of Evaluation: 16:32 - Subjective Subjective: Gastroenterology Fellow/PGY6 Progress Note Patient resting comfortably. Nursing denies acute issues overnight. No bowel movement yesterday. A 12-point review of systems negative except for as above. Objective - Vital Signs/Intake and Output Vital Signs (last 24 hours): Temp Pulse Resp BP Pulse Ox 98.6 F 64 20 134/57 L 95 01/30/19 06:00 01/30/19 14:05 01/30/19 06:00 01/30/19 14:05 01/30/19 06:00 Intake and Output: 01/30/19 01/30/19 06:59 18:59 Intake Total 300 Output Total 400 Balance -100 - Medications Medications: Current Medications Acetaminophen (Tylenol 325mg Tab) 650 mg PO Q4 PRN PRN Reason: Fever >100.4 F Albuterol/Ipratropium (Duoneb 3 Mg/0.5 Mg (3 Ml) Ud) 3 ml IH QIDRESP [facility] Last Admin: 01/30/19 11:33 Dose: 3 ml Clonidine HCl (Catapres) 0.1 mg PO Q6H PRN PRN Reason: Systolic Blood Pressure Furosemide (Lasix) 20 mg PO DAILY [facility] Last Admin: 01/30/19 09:00 Dose: 20 mg Hydralazine HCl (Apresoline) 50 mg PO QID [facility] Last Admin: 01/30/19 14:05 Dose: 50 mg Meropenem/Sodium Chloride (Merrem Iv 500 Mg/Ns 50 Ml) 500 mg in 50 mls @ 100 mls/hr IVPB Q8 [facility]; Protocol Stop: 02/06/19 06:01 Last Admin: 01/30/19 14:06 Dose: 100 mls/hr Levetiracetam (Keppra) 500 mg PO BID [facility] Last Admin: 01/30/19 08:59 Dose: 500 mg Magnesium Oxide (Mag-Ox) 400 mg PO BID [facility] Last Admin: 01/30/19 09:00 Dose: 400 mg Metoprolol Tartrate (Lopressor) 50 mg PO BRKDIN [facility] Last Admin: 01/30/19 09:00 Dose: 50 mg Mirtazapine (Remeron) 30 mg PO HS [facility] Last Admin: 01/29/19 22:05 Dose: 30 mg Oxycodone HCl (Oxycodone Immediate Release Tab) 15 mg PO Q8H PRN PRN Reason: Pain, severe (8-10) Last Admin: 01/30/19 08:59 Dose: 15 mg Pantoprazole Sodium (Protonix Inj) 40 mg IVP Q12 [facility] Last Admin: 01/30/19 08:59 Dose: 40 mg Potassium Chloride (Klor-Con 10) 10 meq PO QD7 [facility] Last Admin: 01/30/19 09:00 Dose: 10 meq Trazodone HCl (Desyrel) 50 mg PO HS [facility] Last Admin: 01/29/19 22:05 Dose: 50 mg Valsartan (Diovan) 320 mg PO DAILY [facility] Last Admin: 01/30/19 08:59 Dose: 320 mg Vitamin B Complex/Vit C/Folic Acid (Nephro-Mundo) 1 tab PO 0800 [facility] Last Admin: 01/30/19 08:59 Dose: 1 tab Zolpidem Tartrate (Ambien) 5 mg PO HS PRN; Protocol PRN Reason: Sleep - Labs Labs: 01/29/19 08:30 01/29/19 09:00 PT 12.9 SECONDS (9.4-12.5) H 01/28/19 08:56 INR 1.14 01/28/19 08:56 APTT 30.7 Seconds (26.9-38.3) 01/27/19 14:37 - Constitutional Appears: Non-toxic, No Acute Distress - Head Exam Head Exam: ATRAUMATIC, NORMOCEPHALIC - Eye Exam Eye Exam: EOMI, PERRL. absent: Scleral icterus Pupil Exam: PERRL. absent: Miosis, Mydriatic - ENT Exam ENT Exam: Mucous Membranes Moist, Normal Oropharynx - Neck Exam Neck Exam: Full ROM, Normal Inspection - Respiratory Exam Respiratory Exam: Clear to Ausculation Bilateral. absent: Rales, Rhonchi, Wheezes - Cardiovascular Exam Cardiovascular Exam: RRR, +S1, +S2. absent: Gallop, Rubs - GI/Abdominal Exam GI & Abdominal Exam: Soft, Normal Bowel Sounds. absent: Distended, Guarding, Rigid, Tenderness, Organomegaly, Rebound - Extremities Exam Extremities Exam: Pedal Edema - Neurological Exam Neurological Exam: Awake - Psychiatric Exam Psychiatric exam: Normal Affect, Normal Mood - Skin Skin Exam: Dry, Intact, Normal Color, Warm Assessment and Plan - Assessment and Plan (Free Text) Assessment: 78 year old female with history of HepC cirrhosis, A Fib on coumadin, CVA with left sided paresis, Bedridden with sacral decubitus ulcer, VRE UTI, indwelling sy catheter, and seizure disorder presenting with eechymosis. GI consultation for anemia. Prior EGD 09/2016 showed medium-sized hiatal hernia. Plan: -MELD 8 -s/p 1 unit pRBCs -H/H stable -PPI BID -tolerating puree diet -CT- no hepatic lesions -Dr. Galindo will discuss possible endoscopic evaluation <Maeve Galindo V - Last Filed: 01/30/19 18:33> Objective - Vital Signs/Intake and Output Vital Signs (last 24 hours): Temp Pulse Resp BP Pulse Ox 98.6 F 90 20 117/70 95 01/30/19 06:00 01/30/19 18:00 01/30/19 06:00 01/30/19 17:45 01/30/19 06:00 Intake and Output: 01/30/19 01/30/19 06:59 18:59 Intake Total 300 Output Total 400 Balance -100 - Medications Medications: Current Medications Acetaminophen (Tylenol 325mg Tab) 650 mg PO Q4 PRN PRN Reason: Fever >100.4 F Albuterol/Ipratropium (Duoneb 3 Mg/0.5 Mg (3 Ml) Ud) 3 ml IH QIDRESP [facility] Last Admin: 01/30/19 16:45 Dose: 3 ml Clonidine HCl (Catapres) 0.1 mg PO Q6H PRN PRN Reason: Systolic Blood Pressure Furosemide (Lasix) 20 mg PO DAILY [facility] Last Admin: 01/30/19 09:00 Dose: 20 mg Hydralazine HCl (Apresoline) 50 mg PO QID [facility] Last Admin: 01/30/19 17:45 Dose: 50 mg Meropenem/Sodium Chloride (Merrem Iv 500 Mg/Ns 50 Ml) 500 mg in 50 mls @ 100 mls/hr IVPB Q8 [facility]; Protocol Stop: 02/06/19 06:01 Last Admin: 01/30/19 14:06 Dose: 100 mls/hr Levetiracetam (Keppra) 500 mg PO BID [facility] Last Admin: 01/30/19 17:45 Dose: 500 mg Magnesium Oxide (Mag-Ox) 400 mg PO BID [facility] Last Admin: 01/30/19 17:45 Dose: 400 mg Metoprolol Tartrate (Lopressor) 50 mg PO BRKDIN [facility] Last Admin: 01/30/19 17:45 Dose: 50 mg Mirtazapine (Remeron) 30 mg PO HS [facility] Last Admin: 01/29/19 22:05 Dose: 30 mg Oxycodone HCl (Oxycodone Immediate Release Tab) 15 mg PO Q8H PRN PRN Reason: Pain, severe (8-10) Last Admin: 01/30/19 08:59 Dose: 15 mg Pantoprazole Sodium (Protonix Inj) 40 mg IVP Q12 [facility] Last Admin: 01/30/19 08:59 Dose: 40 mg Potassium Chloride (Klor-Con 10) 10 meq PO QD7 [facility] Last Admin: 01/30/19 09:00 Dose: 10 meq Trazodone HCl (Desyrel) 50 mg PO HS [facility] Last Admin: 01/29/19 22:05 Dose: 50 mg Valsartan (Diovan) 320 mg PO DAILY [facility] Last Admin: 01/30/19 08:59 Dose: 320 mg Vitamin B Complex/Vit C/Folic Acid (Nephro-Mundo) 1 tab PO 0800 [facility] Last Admin: 01/30/19 08:59 Dose: 1 tab Zolpidem Tartrate (Ambien) 5 mg PO HS PRN; Protocol PRN Reason: Sleep - Labs Labs: 01/29/19 08:30 01/29/19 09:00 PT 12.9 SECONDS (9.4-12.5) H 01/28/19 08:56 INR 1.14 01/28/19 08:56 APTT 30.7 Seconds (26.9-38.3) 01/27/19 14:37 Attending/Attestation - Attestation I have personally seen and examined this patient.: Yes I have fully participated in the care of the patient.: Yes I have reviewed all pertinent clinical information, including history, physical exam and plan: Yes Notes (Text): This is an addendum to the progress report dictated by the GI fellow. The patient was seen and evaluated earlier. Patient appears more alert comfortable tolerating diet. History of A. fib status post CVA on Coumadin level is subtherapeutic. History of retroperitoneal bleed before. Admitted with a s epsis UTI sacral cubitus ulcer patient was found to have a significant drop in blood count status post transfusion. No obvious melena or bright red blood per rectum noticed since admission. Patient probably has a complicated UTI MRSA in the urine in the wound. History of chronic hep C probable cirrhosis. Anemia in this patient is probably multifactorial. We Will discuss with the Dr. Forte and the patient's family regarding endoscopy evaluation. 01/30/19 18:31
--- NOTE | 2019-01-31 03:07 | PN ---
DATE: 01/30/2019 LOCATION: The patient is in room 270, bed 1. SUBJECTIVE: The patient is stable without any complaints or any active GI bleed. No nausea. No vomiting. Blood counts have been holding. PHYSICAL EXAMINATION: VITAL SIGNS: Reveals the patient to be afebrile. T-maxis 98.4, heart rate is 77, blood pressure is 118/45, respiration is 19. HEENT: Head is normocephalic and atraumatic. LUNGS: Reveal to be clear bilaterally with decreased breath sound in the bases. HEART: Reveals S1 and S2 to be normal. No gallop or murmur is heard. ABDOMEN: Soft and nontender. EXTREMITIES: Reveal mild ankle edema. SKIN: Reveals extensive ecchymosis in left shoulder extending into the left chest wall and into the breasts. The patient also has extensive ecchymosis on the right hand, probably related to sensitivity where the patient is bed bound with old dislocated hip and old hemiplegia with weakness that may be making it difficult for the patient to be moved around in bed. The patient tells me that she wears a diaper as well, and these could have been coexisting issues for the ecchymosis rather than bleeding tendency per se. LABORATORY DATA: Reveals a white count of 7.2, hemoglobin 8.7, hematocrit 28.5, platelet count 145,000. Electrolytes are unremarkable. AST is slightly elevated at 37, ALT is 10, alkaline phosphatase is 70. Procalcitonin is 0.27. The patient has Klebsiella pneumoniae in the urine cultures and VRE. ASSESSMENT, NOTES AND PLAN: Anemia is from multifactorial reasons. The patient is on low-dose Coumadin. I discussed my findings with Dr. Forte, and he is going to hold off the Coumadin for now. The patient has urinary tract infection and sacral decubitus for which Infectious Disease consultation has been obtained. The patient is on hydralazine for hypertension. The patient is on oxycodone for her back pain. She is on Remeron and vitamin D supplement as well. The patient is on DuoNeb for chronic obstructive pulmonary disease. She is on Keppra for her seizure disorder. We will continue to monitor blood counts and if her counts drops further, we will assess the patient for Venofer and growth factors as well. Thanking you for allowing me to participate in the management of this patient. Vandana Sanchez MD
[2019-01-31] MEDS: MEROPENEM 500 MG in NS 500 MG/50 ML BAG IVPB SCH ×3 (05:23→21:51)
[2019-01-31] MEDS: oxyCODONE 15 mg Immediate Release Tab PO PRN ×2 (06:36→21:50)
[2019-01-31] MEDS: Albuterol-Ipratrop 3 mg / 0.5 (3 ml) UD IH SCH ×4 (07:59→20:50)
[2019-01-31] MEDS: Potassium Chloride 10 mEq ER Tab PO SCH (08:56)
[2019-01-31] MEDS: Multivitamin Vitamin B Complex (Nephro-Vite) Tab PO SCH (08:56)
[2019-01-31] MEDS: levETIRAcetam 500 mg/5ml UD cups PO SCH ×2 (09:42→17:53)
[2019-01-31] MEDS: Magnesium Oxide 400 mg Tab UD PO SCH ×2 (09:43→17:50)
--- NOTE | 2019-01-31 12:25 | CP.PCM.PN ---
<ScoobyAngelica - Last Filed: 01/31/19 12:22> Subjective - Date & Time of Evaluation Date of Evaluation: 01/31/19 Time of Evaluation: 12:22 - Subjective Subjective: Gastroenterology Fellow/PGY6 Progress Note Patient resting comfortably. Notes mild left abdominal discomfort. Tolerating diet. No bowel movement yesterday. A 12-point review of systems negative except for as above. Objective - Vital Signs/Intake and Output Vital Signs (last 24 hours): Temp Pulse Resp BP Pulse Ox 98.2 F 60 18 139/55 L 96 01/31/19 11:37 01/31/19 11:37 01/31/19 11:37 01/31/19 11:37 01/31/19 05:38 Intake and Output: 01/31/19 01/31/19 06:59 18:59 Intake Total 240 Output Total 500 Balance -260 - Medications Medications: Current Medications Acetaminophen (Tylenol 325mg Tab) 650 mg PO Q4 PRN PRN Reason: Fever >100.4 F Albuterol/Ipratropium (Duoneb 3 Mg/0.5 Mg (3 Ml) Ud) 3 ml IH QIDRESP [facility] Last Admin: 01/31/19 11:25 Dose: 3 ml Clonidine HCl (Catapres) 0.1 mg PO Q6H PRN PRN Reason: Systolic Blood Pressure Furosemide (Lasix) 20 mg PO DAILY [facility] Last Admin: 01/31/19 09:43 Dose: 20 mg Hydralazine HCl (Apresoline) 50 mg PO QID [facility] Last Admin: 01/31/19 09:43 Dose: 50 mg Meropenem/Sodium Chloride (Merrem Iv 500 Mg/Ns 50 Ml) 500 mg in 50 mls @ 100 mls/hr IVPB Q8 [facility]; Protocol Stop: 02/06/19 06:01 Last Admin: 01/31/19 05:23 Dose: 100 mls/hr Levetiracetam (Keppra) 500 mg PO BID [facility] Last Admin: 01/31/19 09:42 Dose: 500 mg Magnesium Oxide (Mag-Ox) 400 mg PO BID [facility] Last Admin: 01/31/19 09:43 Dose: 400 mg Metoprolol Tartrate (Lopressor) 50 mg PO BRKDIN [facility] Last Admin: 01/31/19 08:56 Dose: 50 mg Mirtazapine (Remeron) 30 mg PO HS [facility] Last Admin: 01/30/19 21:30 Dose: 30 mg Oxycodone HCl (Oxycodone Immediate Release Tab) 15 mg PO Q8H PRN PRN Reason: Pain, severe (8-10) Last Admin: 01/31/19 06:36 Dose: 15 mg Pantoprazole Sodium (Protonix Inj) 40 mg IVP Q12 [facility] Last Admin: 01/31/19 09:43 Dose: 40 mg Potassium Chloride (Klor-Con 10) 10 meq PO QD7 [facility] Last Admin: 01/31/19 08:56 Dose: 10 meq Trazodone HCl (Desyrel) 50 mg PO HS [facility] Last Admin: 01/30/19 21:30 Dose: 50 mg Valsartan (Diovan) 320 mg PO DAILY [facility] Last Admin: 01/31/19 09:43 Dose: 320 mg Vitamin B Complex/Vit C/Folic Acid (Nephro-Mundo) 1 tab PO 0800 [facility] Last Admin: 01/31/19 08:56 Dose: 1 tab Zolpidem Tartrate (Ambien) 5 mg PO HS PRN; Protocol PRN Reason: Sleep - Labs Labs: 01/29/19 08:30 01/29/19 09:00 PT 12.9 SECONDS (9.4-12.5) H 01/28/19 08:56 INR 1.14 01/28/19 08:56 APTT 30.7 Seconds (26.9-38.3) 01/27/19 14:37 - Constitutional Appears: Non-toxic, No Acute Distress - Head Exam Head Exam: ATRAUMATIC, NORMOCEPHALIC - Eye Exam Eye Exam: EOMI, PERRL. absent: Scleral icterus Pupil Exam: PERRL. absent: Miosis, Mydriatic - ENT Exam ENT Exam: Mucous Membranes Moist, Normal Oropharynx - Neck Exam Neck Exam: Full ROM, Normal Inspection - Respiratory Exam Respiratory Exam: Clear to Ausculation Bilateral. absent: Rales, Rhonchi, Wheezes - Cardiovascular Exam Cardiovascular Exam: RRR, +S1, +S2. absent: Gallop, Rubs - GI/Abdominal Exam GI & Abdominal Exam: Soft, Normal Bowel Sounds. absent: Distended, Firm, Guarding, Rigid, Tenderness, Organomegaly, Rebound - Extremities Exam Extremities Exam: Normal Inspection. absent: Pedal Edema - Neurological Exam Neurological Exam: Alert, Awake - Psychiatric Exam Psychiatric exam: Normal Affect, Normal Mood - Skin Skin Exam: Dry, Intact, Normal Color, Warm Assessment and Plan - Assessment and Plan (Free Text) Assessment: 78 year old female with history of HepC cirrhosis, A Fib on coumadin, CVA with left sided paresis, history of retroperitoneal bleed on coumadin, Bedridden with sacral decubitus ulcer, VRE UTI, indwelling sy catheter, and seizure disorder presenting with eechymosis. GI consultation for anemia. Prior EGD 09/2016 showed medium-sized hiatal hernia. Plan: -MELD 8 -diagnostic EGD tomorrow -last Coumadin dose -on 01/26 (subtherapeutic on admission -tolerating puree diet -NPO after midnight -s/p 1 unit pRBCs on 01/27 -H/H stable, ordered repeat labs -continue PPI BID -further recommendations after EGD <Maeve Galindo V - Last Filed: 01/31/19 16:00> Objective - Vital Signs/Intake and Output Vital Signs (last 24 hours): Temp Pulse Resp BP Pulse Ox 98.2 F 64 18 110/42 L 96 01/31/19 11:37 01/31/19 14:44 01/31/19 11:37 01/31/19 14:44 01/31/19 05:38 Intake and Output: 01/31/19 01/31/19 06:59 18:59 Intake Total 240 Output Total 500 Balance -260 - Medications Medications: Current Medications Acetaminophen (Tylenol 325mg Tab) 650 mg PO Q4 PRN PRN Reason: Fever >100.4 F Albuterol/Ipratropium (Duoneb 3 Mg/0.5 Mg (3 Ml) Ud) 3 ml IH QIDRESP [facility] Last Admin: 01/31/19 11:25 Dose: 3 ml Clonidine HCl (Catapres) 0.1 mg PO Q6H PRN PRN Reason: Systolic Blood Pressure Furosemide (Lasix) 20 mg PO DAILY [facility] Last Admin: 01/31/19 09:43 Dose: 20 mg Hydralazine HCl (Apresoline) 50 mg PO QID [facility] Last Admin: 01/31/19 14:44 Dose: Not Given Meropenem/Sodium Chloride (Merrem Iv 500 Mg/Ns 50 Ml) 500 mg in 50 mls @ 100 mls/hr IVPB Q8 [facility]; Protocol Stop: 02/06/19 06:01 Last Admin: 01/31/19 14:44 Dose: 100 mls/hr Levetiracetam (Keppra) 500 mg PO BID [facility] Last Admin: 01/31/19 09:42 Dose: 500 mg Magnesium Oxide (Mag-Ox) 400 mg PO BID [facility] Last Admin: 01/31/19 09:43 Dose: 400 mg Metoprolol Tartrate (Lopressor) 50 mg PO BRKDIN [facility] Last Admin: 01/31/19 08:56 Dose: 50 mg Mirtazapine (Remeron) 30 mg PO HS [facility] Last Admin: 01/30/19 21:30 Dose: 30 mg Oxycodone HCl (Oxycodone Immediate Release Tab) 15 mg PO Q8H PRN PRN Reason: Pain, severe (8-10) Last Admin: 01/31/19 06:36 Dose: 15 mg Pantoprazole Sodium (Protonix Inj) 40 mg IVP Q12 [facility] Last Admin: 01/31/19 09:43 Dose: 40 mg Potassium Chloride (Klor-Con 10) 10 meq PO QD7 [facility] Last Admin: 01/31/19 08:56 Dose: 10 meq Trazodone HCl (Desyrel) 50 mg PO HS [facility] Last Admin: 01/30/19 21:30 Dose: 50 mg Valsartan (Diovan) 320 mg PO DAILY [facility] Last Admin: 01/31/19 09:43 Dose: 320 mg Vitamin B Complex/Vit C/Folic Acid (Nephro-Mundo) 1 tab PO 0800 [facility] Last Admin: 01/31/19 08:56 Dose: 1 tab Zolpidem Tartrate (Ambien) 5 mg PO HS PRN; Protocol PRN Reason: Sleep - Labs Labs: 01/29/19 08:30 01/29/19 09:00 PT 12.9 SECONDS (9.4-12.5) H 01/28/19 08:56 INR 1.14 01/28/19 08:56 APTT 30.7 Seconds (26.9-38.3) 01/27/19 14:37 Attending/Attestation - Attestation I have personally seen and examined this patient.: Yes I have fully participated in the care of the patient.: Yes I have reviewed all pertinent clinical information, including history, physical exam and plan: Yes Notes (Text): This is an addendum to the GI progress note dictated by the GI fellow. The patient was seen and evaluated earlier. Discussed with the nursing staff. No obvious bleeding per rectum or melena. Tolerating diet. Patient has sacral decubitus ulcers and also urinary tract infection VRE in the urine and MRSA in the decubitus ulcer. Patient is on IV antibiotics Merrem as per ID. Patient was admitted with a significant anemia with hemoglobin of 6.9 with a significantly elevated MCV of 105. Hematology consult was noted. The anemia is probably multifactorial etiology history of chronic liver disease probable cirrhosis Patient has a multiple comorbidities history of A. fib status post CVA was on Coumadin last INR was subtherapeutic History of retroperitoneal bleed in the past Patient would benefit from upper GI endoscopy will be discussed with the patient's family daughter and also Dr. Forte Repeat PT/INR in a.m. 01/31/19 15:57
--- NOTE | 2019-01-31 22:24 | PN ---
DATE: 01/31/2019 SUBJECTIVE: The patient is in room 270, bed 1. The patient was seen earlier. The patient appears weak. No fevers. PHYSICAL EXAMINATION: VITAL SIGNS: Temperature is 98, blood pressure is 110/40, respiratory rate of 18, heart rate of 60. HEENT: Unremarkable. NECK: Supple. LUNGS: Decreased breath sounds. HEART: Normal S1 and S2. ABDOMEN: Soft. LABORATORY EXAMINATION: Reveals a white count of 7.2, hemoglobin of 8. Chemistries are noted. BUN of 16, creatinine of 0.8. Procalcitonin is 0.07. Microbiology is noted to have VRE and E. coli in the urine. The nares MRSA is negative. Sacral culture is noted. Blood cultures are noted. Earlier, urine culture grew VRE, Klebsiella and E. coli. ASSESSMENT AND PLAN: A 78-year-old female with complicated urinary tract infection of vancomycin-resistant Enterococci, extended-spectrum beta-lactamase, Klebsiella, Escherichia coli. The patient has a Bush catheter, sepsis with right lower lobe healthcare-associated pneumonia by history, decubitus ulcer, acute pancreatitis and left rectus sheath hematoma by history, cerebrovascular accident. On intermittent daptomycin, day #3 of meropenem complete a short course of antibiotics. THE PATIENT IS ALLERGIC TO PENICILLIN. Type of allergy is not quite clear. She has extended-spectrum beta-lactamase and Escherichia coli in the urine. Ricardo Burgos MD
--- NOTE | 2019-02-01 02:00 | PN ---
DATE: 01/30/2019 SUBJECTIVE: The patient is comfortable, no distress. No new changes. 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 No nausea. No vomiting. No active bleeding. PHYSICAL EXAMINATION VITAL SIGNS: Temperature is 98.1, heart rate is 79, blood pressure is 117/90, and respirations are 20. HEAD AND NECK: Normal. No JVD. No thyromegaly. CHEST: Clear bilateral. CARDIAC: First sound and second sound normal. ABDOMEN: Soft, minimal tender in epigastric area. EXTREMITIES: Trace edema in the ankle area with . NEUROLOGIC: Left hemiplegia. The patient responds to talking to her, does not seem to be in any distress. LABORATORY STUDIES: The patient's last chemistry; sodium 138, potassium 4.1, chloride 102, bicarb 28, BUN 16, and creatinine 0.8. Liver function test is normal except AST 37, which has been improving. The patient had B12 and folate normal, and procalcitonin is low 0.07. Blood count; CBC shows white count 7.2, hemoglobin 8.7, hematocrit 28.5, platelets 145 and reticulocyte count is 8. IMPRESSION AND PLAN: 1. Acute drop in hemoglobin, anemia, etiology most likely gastrointestinal. CT negative for retroperitoneal. Continue Protonix. We will monitor hemoglobin, which seems stable over the last 3 days. Endoscopy has been planned, but we will hold off on it as per Gastroenterology. We will discuss further with them. 2. Hypertension, still running on the high side. Continue current therapy, hydralazine 50 mg daily four times, Catapres 0.1 every 6 hours p.r.n. for systolics more than 170, Diovan 320, Lasix 20 mg p.o. daily, and Lopressor 50 b.i.d. 3. Sacral decubitus and urinary tract infections, positive culture. Continue Merrem IV as per Infectious Disease consult. 4. History of seizure disorder, cerebrovascular accident and left hemiplegia. Continue Keppra 500 mg daily. Plan is continue current therapy. The patient has been assisted with feeding. She has been monitored to move from side to side. Sacral decubitus precautions and treatment has been applied. We will continue current therapy. We will follow up clinically. Albin Forte MD [facility] # [id number]
--- NOTE | 2019-02-01 02:52 | PN ---
DATE: 01/31/2019 SUBJECTIVE: The patient is comfortable, in no distress. No chest pain. No short of breath. No nausea. No vomiting. The patient is comfortable otherwise. She is still on IV antibiotic Merrem. PHYSICAL EXAMINATION VITAL SIGNS: Temperature is 98.4, heart rate is 77, blood pressure 128/84, respiration 18, saturation is 96% on room air. HEAD AND NECK: Normal. No JVD. No thyromegaly. CHEST: Clear bilateral. CARDIAC: First sound and second sound normal. No murmur, rub, or gallop. ABDOMEN: Soft and nontender. There is mild epigastric tenderness. Bowel sounds intact. EXTREMITIES: Trace edema bilateral with heel cushions. NEUROLOGIC: Left hemiplegia. LABORATORY DATA: The patient's last hemoglobin 8.7, hematocrit 28.5 and been stable with platelets 145 and white cell count 7.2. The patient's last PT/PTT, 12.9 PT and INR 1.14, last PTT is 30.7. ASSESSMENT AND PLAN: 1. Acute drop in hemoglobin, etiology is unclear, possible gastrointestinal in origin. The patient is high risk for any procedures. We will continue intravenous Protonix. Hemoglobin and hematocrit seems stable. We will discuss further with her [employer] team. 2. Hypertension is controlled. Continue current therapy. She is stable on Diovan, metoprolol, hydralazine and Lasix. 3. Poor appetite. Continue Remeron. Encourage p.o. feeding. We will add some Ensure and a soft diet may be easier for her. 4. Left hemiplegia. The patient has a history of chronic atrial fibrillation. We will resume Coumadin. Because of recent bleeding, we hold off on that because the risk of bleeding is much higher than any risk at this time. We will continue current therapy. We will discuss further with the railroad shop inspector. The patient had similar episodes in the past. The patient is otherwise stable. 5. Chronic osteoarthritis and chronic back pain. Continue oxycodone 15 mg every 8 hours. She seems stable with that. 6. Urinary tract infection and sacral decubitus, stage 2. Continue local wound care. Continue IV Merrem. PLAN: Continue current therapy. We will discuss further with other insurance consultant. Albin Forte MD
[2019-02-01] MEDS: MEROPENEM 500 MG in NS 500 MG/50 ML BAG IVPB SCH ×2 (05:33→14:01)
[2019-02-01] MEDS: Albuterol-Ipratrop 3 mg / 0.5 (3 ml) UD IH SCH ×3 (07:40→21:11)
[2019-02-01] MEDS: Potassium Chloride 10 mEq ER Tab PO SCH (08:53)
[2019-02-01] MEDS: Multivitamin Vitamin B Complex (Nephro-Vite) Tab PO SCH (08:55)
[2019-02-01 09:40] LABS: BASO # 0.03 K/mm3 (0.0-2.0); BASO % 0.8 % (0.0-3.0); EOS # 0.1 (0.0-0.7); EOS % 3.3 % (1.5-5.0); HEMOGLOBIN 9.3 g/dL (12.0-16.0); LYMPH # 0.9 (1.2-3.4); LYMPH % 22.8 % (22.0-35.0); MEAN CELL VOLUME 104.4 fl (80.0-105.0); MEAN CORPUSCULAR HEMOGLOBIN 31.4 pg (25.0-35.0); MEAN CORPUSCULAR HGB CONC 30.1 g/dl (31.0-37.0); MEAN PLATELET VOLUME 8.7 fl (7.0-11.0); MONO # 0.3 (0.1-0.6); MONO % 7.2 % (1.0-6.0); RBC 2.96 10^6/uL (3.5-6.1); RED CELL DISTRIBUTION WIDTH 18.7 % (11.5-14.5); WHITE BLOOD COUNT 3.9 10^3/uL (4.5-11.0)
[2019-02-01 09:48] LABS: INR 1.16; PROTHROMBIN TIME 13.1 SECONDS (9.4-12.5)
[2019-02-01 10:06] LABS: ALBUMIN 3.5 g/dL (3.0-4.8); ALT/SGPT 25 U/L (7-56); AST/SGOT 54 U/L (14-36); BLOOD UREA NITROGEN 24 mg/dL (7-21); GFR NON-AFRICAN AMERICAN > 60
--- NOTE | 2019-02-01 11:39 | CP.PCM.PN ---
Subjective - Date & Time of Evaluation Date of Evaluation: 02/01/19 Time of Evaluation: 06:00 - Subjective Subjective: Luis Alberto Simmons PGY2 Heme/Onc Progress Note for Dr. Sanchez Patient seen and evaluated bedside. No acute issues overnight. Patient denies any acute complaints. Objective - Vital Signs/Intake and Output Vital Signs (last 24 hours): Temp Pulse Resp BP Pulse Ox 98.1 F 65 19 165/61 H 99 02/01/19 06:00 02/01/19 06:00 02/01/19 06:00 02/01/19 06:00 02/01/19 06:00 Intake and Output: 02/01/19 02/01/19 06:59 18:59 Intake Total 0 Output Total 250 Balance -250 - Medications Medications: Current Medications Acetaminophen (Tylenol 325mg Tab) 650 mg PO Q4 PRN PRN Reason: Fever >100.4 F Albuterol/Ipratropium (Duoneb 3 Mg/0.5 Mg (3 Ml) Ud) 3 ml IH QIDRESP [facility] Last Admin: 02/01/19 11:28 Dose: 3 ml Clonidine HCl (Catapres) 0.1 mg PO Q6H PRN PRN Reason: Systolic Blood Pressure Furosemide (Lasix) 20 mg PO DAILY [facility] Last Admin: 01/31/19 09:43 Dose: 20 mg Hydralazine HCl (Apresoline) 50 mg PO QID [facility] Last Admin: 01/31/19 21:50 Dose: 50 mg Meropenem/Sodium Chloride (Merrem Iv 500 Mg/Ns 50 Ml) 500 mg in 50 mls @ 100 mls/hr IVPB Q8 [facility]; Protocol Stop: 02/06/19 06:01 Last Admin: 02/01/19 05:33 Dose: 100 mls/hr Levetiracetam (Keppra) 500 mg PO BID [facility] Last Admin: 01/31/19 17:53 Dose: 500 mg Magnesium Oxide (Mag-Ox) 400 mg PO BID [facility] Last Admin: 01/31/19 17:50 Dose: 400 mg Metoprolol Tartrate (Lopressor) 50 mg PO BRKDIN [facility] Last Admin: 02/01/19 08:53 Dose: Not Given Mirtazapine (Remeron) 30 mg PO HS [facility] Last Admin: 01/31/19 22:25 Dose: 30 mg Oxycodone HCl (Oxycodone Immediate Release Tab) 15 mg PO Q8H PRN PRN Reason: Pain, severe (8-10) Last Admin: 01/31/19 21:50 Dose: 15 mg Pantoprazole Sodium (Protonix Inj) 40 mg IVP Q12 [facility] Last Admin: 01/31/19 21:49 Dose: 40 mg Potassium Chloride (Klor-Con 10) 10 meq PO QD7 [facility] Last Admin: 02/01/19 08:53 Dose: Not Given Trazodone HCl (Desyrel) 50 mg PO HS [facility] Last Admin: 01/31/19 21:50 Dose: 50 mg Valsartan (Diovan) 320 mg PO DAILY [facility] Last Admin: 01/31/19 09:43 Dose: 320 mg Vitamin B Complex/Vit C/Folic Acid (Nephro-Mundo) 1 tab PO 0800 [facility] Last Admin: 02/01/19 08:55 Dose: Not Given Zolpidem Tartrate (Ambien) 5 mg PO HS PRN; Protocol PRN Reason: Sleep Last Admin: 01/31/19 22:25 Dose: 5 mg - Labs Labs: 02/01/19 09:10 02/01/19 09:10 PT 13.1 SECONDS (9.4-12.5) H 02/01/19 09:10 INR 1.16 02/01/19 09:10 APTT 30.7 Seconds (26.9-38.3) 01/27/19 14:37 - Constitutional Appears: No Acute Distress - Respiratory Exam Respiratory Exam: NORMAL BREATHING PATTERN - Cardiovascular Exam Cardiovascular Exam: REGULAR RHYTHM - GI/Abdominal Exam GI & Abdominal Exam: Soft. absent: Tenderness - Neurological Exam Neurological Exam: Alert, Awake, Oriented x3 Assessment and Plan - Assessment and Plan (Free Text) Assessment: 78 year old female with history of A Fib on coumadin, CVA , left sided paresis, aortic direction, sacral decubiti and seizure disorder who presented with diffuse bruising over her chest, abdomen, and arms for the past week. Plan: Anemia -Hgb 6.9 on admission -s/p 1 unit PRBC -repeat Hgb 9.3 from this am -peripheral smear reviewed -Chest abd pelvis CT showed Mild fatty hepatic infiltration with a minimal central intrahepatic biliary ductal dilatation. Splenomegaly. Possible varices left upper quadrant of the abdomen. Slight wall thickening of the rectum; consider follow-up sigmoidoscopy to exclude infarct all wall lesion. -retic count, peripheral smear pending -GI will schedule EGD Echymosis -hold warfarin -likely due to mild trauma -B12 and folate within normal range -continue B complex UTI -cultures pending -ABx per ID, follow recs
[2019-02-01] MEDS: Magnesium Oxide 400 mg Tab UD PO SCH ×2 (11:42→17:21)
--- NOTE | 2019-02-01 13:59 | CP.PCM.PN ---
Subjective - Date & Time of Evaluation Date of Evaluation: 02/01/19 Time of Evaluation: 11:40 - Subjective Subjective: Seen and examined at bedside chart reviewed. No acute overnight events reported, patient is awake, and alert. c/o abdominal pain mostly on left side. NPO for possible EGD. Objective - Vital Signs/Intake and Output Vital Signs (last 24 hours): Temp Pulse Resp BP Pulse Ox 97.9 F 73 18 156/75 H 99 02/01/19 12:00 02/01/19 12:00 02/01/19 12:00 02/01/19 12:00 02/01/19 06:00 Intake and Output: 02/01/19 02/01/19 06:59 18:59 Intake Total 0 Output Total 250 Balance -250 - Medications Medications: Current Medications Acetaminophen (Tylenol 325mg Tab) 650 mg PO Q4 PRN PRN Reason: Fever >100.4 F Albuterol/Ipratropium (Duoneb 3 Mg/0.5 Mg (3 Ml) Ud) 3 ml IH QIDRESP [facility] Last Admin: 02/01/19 11:28 Dose: 3 ml Clonidine HCl (Catapres) 0.1 mg PO Q6H PRN PRN Reason: Systolic Blood Pressure Furosemide (Lasix) 20 mg PO DAILY [facility] Last Admin: 01/31/19 09:43 Dose: 20 mg Hydralazine HCl (Apresoline) 50 mg PO QID [facility] Last Admin: 02/01/19 11:43 Dose: Not Given Meropenem/Sodium Chloride (Merrem Iv 500 Mg/Ns 50 Ml) 500 mg in 50 mls @ 100 mls/hr IVPB Q8 [facility]; Protocol Stop: 02/06/19 06:01 Last Admin: 02/01/19 05:33 Dose: 100 mls/hr Levetiracetam (Keppra) 500 mg PO BID [facility] Last Admin: 01/31/19 17:53 Dose: 500 mg Magnesium Oxide (Mag-Ox) 400 mg PO BID [facility] Last Admin: 02/01/19 11:42 Dose: Not Given Metoprolol Tartrate (Lopressor) 50 mg PO BRKDIN [facility] Last Admin: 02/01/19 08:53 Dose: Not Given Mirtazapine (Remeron) 30 mg PO HS [facility] Last Admin: 01/31/19 22:25 Dose: 30 mg Oxycodone HCl (Oxycodone Immediate Release Tab) 15 mg PO Q8H PRN PRN Reason: Pain, severe (8-10) Last Admin: 01/31/19 21:50 Dose: 15 mg Pantoprazole Sodium (Protonix Inj) 40 mg IVP Q12 [facility] Last Admin: 01/31/19 21:49 Dose: 40 mg Potassium Chloride (Klor-Con 10) 10 meq PO QD7 [facility] Last Admin: 02/01/19 08:53 Dose: Not Given Trazodone HCl (Desyrel) 50 mg PO HS [facility] Last Admin: 01/31/19 21:50 Dose: 50 mg Valsartan (Diovan) 320 mg PO DAILY [facility] Last Admin: 01/31/19 09:43 Dose: 320 mg Vitamin B Complex/Vit C/Folic Acid (Nephro-Mundo) 1 tab PO 0800 [facility] Last Admin: 02/01/19 08:55 Dose: Not Given Zolpidem Tartrate (Ambien) 5 mg PO HS PRN; Protocol PRN Reason: Sleep Last Admin: 01/31/19 22:25 Dose: 5 mg - Labs Labs: 02/01/19 09:10 02/01/19 09:10 PT 13.1 SECONDS (9.4-12.5) H 02/01/19 09:10 INR 1.16 02/01/19 09:10 APTT 30.7 Seconds (26.9-38.3) 01/27/19 14:37 - Constitutional Appears: No Acute Distress - Eye Exam Eye Exam: Normal appearance. absent: Scleral icterus - ENT Exam ENT Exam: Mucous Membranes Moist - Neck Exam Neck Exam: Normal Inspection - Respiratory Exam Respiratory Exam: Decreased Breath Sounds, NORMAL BREATHING PATTERN. absent: Rales, Wheezes, Respiratory Distress - Cardiovascular Exam Cardiovascular Exam: +S1, +S2 - GI/Abdominal Exam GI & Abdominal Exam: Soft, Tenderness (diffuse but mostly on left quaderant. ), Normal Bowel Sounds. absent: Guarding, Organomegaly, Rebound - Extremities Exam Extremities Exam: absent: Pedal Edema - Neurological Exam Neurological Exam: Alert, Awake Additional comments: left sided weakness - Skin Skin Exam: Dry, Warm Assessment and Plan - Assessment and Plan (Free Text) Assessment: Assessment: Anemia h/o Hepatitis C Atrial Fibrillation on Coumadin CVA with left sided paresis History of retroperitoneal bleed on coumadin, Sacral decubitus ulcer VRE UTI, indwelling sy catheter Seizure disorder Last EGD 09/2016 showed medium-sized hiatal hernia. Plan: monitor H/H and for overt GIB, currently stable, s/p 1 unit 01/27 continue PPI BID spoke to patient POA, daughter Paula Gamez regarding diagnostic EGD, reluctant, would like to discuss with Dr. Forte before making a decision. Dr. Forte attempt to call daughter (as per Dr. Galindo) who was not home, daughter not available till after 6 pm. EGD cancelled for today till futher discussion with patient daughter. Resume puree diet. Seen and discussed w/ Dr. Galindo.
[2019-02-01] MEDS: oxyCODONE 15 mg Immediate Release Tab PO PRN (14:00)
[2019-02-01] MEDS: levETIRAcetam 500 mg/5ml UD cups PO SCH ×2 (14:00→17:21)
--- NOTE | 2019-02-01 18:46 | CP.PCM.PCO ---
Physician Communication Note - Physician Communication Note Physician Communication Note: EGD rescheduled
--- NOTE | 2019-02-01 22:39 | PN ---
DATE: 02/01/2019 SUBJECTIVE: The patient is in bed, in no acute distress, nontoxic. Seen earlier today in 270. PHYSICAL EXAMINATION: VITAL SIGNS: Temperature is 97, blood pressure is 156/70, respiratory rate of 18. HEENT: Unremarkable. NECK: Supple. LUNGS: Have decreased breath sounds. HEART: Normal S1, S2. ABDOMEN: Soft, nontender. LABORATORY DATA: White count of 3.9, hemoglobin of 9. Chemistries reveals a BUN of 24, creatinine of 0.7. Procalcitonin 0.07. Urinalysis reveals too numerous to count. Microbiology reveals the VRE and E. coli in the urine Klebsiella and MRSA from sacrum. Review of orders reveals the patient is on meropenem. Devika Ayoub' progress note is reviewed. ASSESSMENT AND PLAN: This is a 78-year-old female with complicated urinary tract infection and vancomycin resistant Enterococcus and extended spectrum beta lactamase, Klebsiella Escherichia coli Bush catheter with sepsis, right lower lobe healthcare-associated pneumonia by history, decubitus ulcer, acute pancreatitis, left rectus sheath hematoma by history, cerebrovascular accident, on intravenous daptomycin, day #4 of meropenem. We will discontinue the meropenem as the patient appears to be endstage, cachectic with a body mass index of only 18. Overall in poor condition. We will discontinue the antibiotics. No further antibiotics. The patient is at risk for developing nosocomial infections. Ricardo Burgos MD
[2019-02-02] MEDS: Albuterol-Ipratrop 3 mg / 0.5 (3 ml) UD IH SCH ×4 (08:11→16:06)
--- NOTE | 2019-02-02 08:30 | CP.PCM.PN ---
Subjective - Date & Time of Evaluation Date of Evaluation: 02/02/19 Time of Evaluation: 06:00 - Subjective Subjective: Luis Alberto Simmons Heme/Onc Progress Note for Dr. Sanchez Patient seen and evaluated bedside in AM. Patient states she has intense pain in her buttocks. Denies any other complaints. Objective - Vital Signs/Intake and Output Vital Signs (last 24 hours): Temp Pulse Resp BP Pulse Ox 98.5 F 71 18 149/74 95 02/02/19 05:42 02/02/19 05:51 02/02/19 05:42 02/02/19 05:42 02/02/19 05:42 Intake and Output: 02/02/19 02/02/19 06:59 18:59 Intake Total 1200 Output Total 450 Balance 750 - Medications Medications: Current Medications Acetaminophen (Tylenol 325mg Tab) 650 mg PO Q4 PRN PRN Reason: Fever >100.4 F Albuterol/Ipratropium (Duoneb 3 Mg/0.5 Mg (3 Ml) Ud) 3 ml IH QIDRESP [facility] [place] Last Admin: 02/02/19 08:11 Dose: Not Given Clonidine HCl (Catapres) 0.1 mg PO Q6H PRN PRN Reason: Systolic Blood Pressure Furosemide (Lasix) 20 mg PO DAILY [facility] [place] Last Admin: 02/01/19 14:00 Dose: 20 mg Hydralazine HCl (Apresoline) 50 mg PO QID [facility] [place] Last Admin: 02/01/19 21:02 Dose: 50 mg Levetiracetam (Keppra) 500 mg PO BID [facility] [place] Last Admin: 02/01/19 17:21 Dose: 500 mg Magnesium Oxide (Mag-Ox) 400 mg PO BID [facility] [place] Last Admin: 02/01/19 17:21 Dose: 400 mg Metoprolol Tartrate (Lopressor) 50 mg PO BRKDIN [facility] [place] Last Admin: 02/01/19 17:21 Dose: 50 mg Mirtazapine (Remeron) 30 mg PO HS [facility] [place] Last Admin: 02/01/19 21:01 Dose: 30 mg Oxycodone HCl (Oxycodone Immediate Release Tab) 15 mg PO Q8H PRN PRN Reason: Pain, severe (8-10) Last Admin: 02/01/19 14:00 Dose: 15 mg Pantoprazole Sodium (Protonix Inj) 40 mg IVP Q12 [facility] [place] Last Admin: 02/01/19 21:02 Dose: 40 mg Potassium Chloride (Klor-Con 10) 10 meq PO QD7 [facility] [place] Last Admin: 02/01/19 08:53 Dose: Not Given Trazodone HCl (Desyrel) 50 mg PO HS [facility] [place] Last Admin: 02/01/19 21:02 Dose: 50 mg Valsartan (Diovan) 320 mg PO DAILY [facility] [place] Last Admin: 02/01/19 14:00 Dose: 320 mg Vitamin B Complex/Vit C/Folic Acid (Nephro-Mundo) 1 tab PO 0800 [facility] [place] Last Admin: 02/01/19 08:55 Dose: Not Given Zolpidem Tartrate (Ambien) 5 mg PO HS PRN; Protocol PRN Reason: Sleep Last Admin: 01/31/19 22:25 Dose: 5 mg - Labs Labs: 02/01/19 09:10 02/01/19 09:10 PT 13.1 SECONDS (9.4-12.5) H 02/01/19 09:10 INR 1.16 02/01/19 09:10 APTT 30.7 Seconds (26.9-38.3) 01/27/19 14:37 - Constitutional Appears: No Acute Distress - Head Exam Head Exam: ATRAUMATIC, NORMAL INSPECTION, NORMOCEPHALIC - Eye Exam Eye Exam: Normal appearance - ENT Exam ENT Exam: Mucous Membranes Moist - Respiratory Exam Respiratory Exam: Clear to Ausculation Bilateral, NORMAL BREATHING PATTERN - Cardiovascular Exam Cardiovascular Exam: REGULAR RHYTHM - GI/Abdominal Exam GI & Abdominal Exam: Soft - Neurological Exam Neurological Exam: Alert, Awake - Skin Additional comments: echymossis Assessment and Plan - Assessment and Plan (Free Text) Plan: Anemia -Hgb 6.9 on admission -s/p 1 unit PRBC -repeat Hgb pending -peripheral smear reviewed -Chest abd pelvis CT showed Mild fatty hepatic infiltration with a minimal central intrahepatic biliary ductal dilatation. Splenomegaly. Possible varices left upper quadrant of the abdomen. Slight wall thickening of the rectum; consider follow-up sigmoidoscopy to exclude infarct all wall lesion. -retic count, peripheral smear pending -GI will schedule EGD for tomorrow AM Echymosis -hold warfarin -likely due to mild trauma -B12 and folate within normal range -continue B complex UTI -ABx D/C as per ID due to current status
[2019-02-02] MEDS: oxyCODONE 15 mg Immediate Release Tab PO PRN (09:58)
[2019-02-02] MEDS: Multivitamin Vitamin B Complex (Nephro-Vite) Tab PO SCH (11:20)
[2019-02-02] MEDS: Potassium Chloride 10 mEq ER Tab PO SCH (11:20)
[2019-02-02] MEDS: levETIRAcetam 500 mg/5ml UD cups PO SCH ×2 (11:20→18:13)
[2019-02-02] MEDS: Magnesium Oxide 400 mg Tab UD PO SCH ×2 (11:20→18:13)
--- NOTE | 2019-02-02 12:08 | US ---
HISTORY: Leg pain and swelling. Evaluate for DVT PHYSICIAN(S): Pratik Kendrick MD. TECHNIQUE: Duplex sonography and color-flow Doppler with graded compression were used to evaluate the deep venous systems of both lower extremities. The left tibial veins were not adequately visualized FINDINGS: The visualized deep venous systems of both lower extremities are sonographically normal and compressible. Normal wave forms and augmentation are seen. There is no sonographic evidence for deep venous thrombosis in the visualized segments of both lower extremities. IMPRESSION: No sonographic evidence for deep venous thrombosis in the visualized segments of both lower extremities. Limited study.
--- NOTE | 2019-02-02 13:04 | CP.PCM.PCO ---
Physician Communication Note - Physician Communication Note Physician Communication Note: pt for Endo in am with Dr kelly, will follow
--- NOTE | 2019-02-02 13:45 | PN ---
DATE: 02/01/2019 SUBJECTIVE: The patient is comfortable. She does have some epigastric pain. She complained of pain. She has no vomiting. No respiratory distress. No chest pain. PHYSICAL EXAMINATION: VITAL SIGNS: Temperature 98, heart rate 69, blood pressure 123/65, respirations 19, saturation 96% on room air. HEAD AND NECK: Normal. No JVD. No thyromegaly. CHEST: Clear bilateral. CARDIAC: First sound, second sound normal. ABDOMEN: There is tenderness in epigastric area. Bowel sounds are intact. EXTREMITIES: Lower extremities, no edema. NEUROLOGIC: Left hemiplegia. LABORATORY STUDIES: Hemoglobin 9.3, hematocrit 30.9, platelets 85 and white count 3.9. Chemistry; sodium 143, potassium 4.2, chloride 106, bicarb 32, BUN 24, creatinine 0.7, AST 54, alkaline phosphatase and ALT is normal. IMPRESSION: 1. Abdominal pain, anemia, epigastric tenderness. Spoke with her daughter, fransisco for diagnostic esophagogastroduodenoscopy. Risk explained and benefits explained to the patient. 2. Urinary tract infections. Continue current intravenous antibiotics. Sacral decubitus, stage 2. Continue local wound care. Followup with Infectious Disease consult. 3. Hypertension, better control. 4. Chronic atrial fibrillation, chronic hepatitis C, thrombocytopenia, anemia, chronic obstructive pulmonary disease, hypertension, history of seizures, insomnia, chronic back pain, osteoarthritis. PLAN: Continue current medication. We will follow up with the consultants, fransisco for EGD. [place] with her daughter. We will go ahead and proceed. Albin Forte MD
--- NOTE | 2019-02-02 15:38 | PN ---
DATE: 02/02/2019 SUBJECTIVE: The patient is seen earlier today. No fevers and no chills. No nausea. PHYSICAL EXAMINATION: VITAL SIGNS: Temperature of 98, blood pressure is 140/70, respiratory rate of 18. HEENT: Unremarkable. NECK: Supple. LUNGS: Have decreased breath sounds. HEART: Normal. S1 and S2. ABDOMEN: Soft. LABORATORY DATA: Laboratory examination reveals a white count is 3.9 from yesterday and hemoglobin of 9. Chemistries are noted. Pro calcitonin is 0.07. Microbiology has noted a VRE and E. coli, Bush catheter, cultures, and E. coli is ESBL and the VRE is noted and the blood cultures are negative. MEDICATIONS: Review of orders reveals the patient is now off of antibiotics. ASSESSMENT AND PLAN: This is a 78-year-old female seen earlier today with complicated urinary tract infection, vancomycin-resistant enterococci, Extended-spectrum beta-lactamase Escherichia coli; and the patient also has a history of Klebsiella and had sepsis right lower lobe, healthcare-associated pneumonia by history, decubitus ulcer, acute pancreatitis, rectus sheath hematoma by history, has completed antibiotic therapy for four days, and currently now off of antibiotics, afebrile. The patient is at risk for developing nosocomial infections. Ricardo Burgos MD
[2019-02-02 16:34] LABS: BASO # 0.01 K/mm3 (0.0-2.0); BASO % 0.2 % (0.0-3.0); EOS # 0.1 (0.0-0.7); HEMOGLOBIN 8.7 g/dL (12.0-16.0); LYMPH # 1.1 (1.2-3.4); LYMPH % 24.7 % (22.0-35.0); MEAN CELL VOLUME 102.5 fl (80.0-105.0); MEAN CORPUSCULAR HEMOGLOBIN 31.3 pg (25.0-35.0); MEAN CORPUSCULAR HGB CONC 30.5 g/dl (31.0-37.0); MEAN PLATELET VOLUME 8.7 fl (7.0-11.0); MONO # 0.2 (0.1-0.6); MONO % 5.4 % (1.0-6.0); RBC 2.78 10^6/uL (3.5-6.1); RED CELL DISTRIBUTION WIDTH 17.4 % (11.5-14.5); WHITE BLOOD COUNT 4.4 10^3/uL (4.5-11.0)
[2019-02-02 17:14] LABS: ALBUMIN 3.2 g/dL (3.0-4.8); ALT/SGPT 41 U/L (7-56); AST/SGOT 105 U/L (14-36); BLOOD UREA NITROGEN 28 mg/dL (7-21); CALCIUM 8.4 mg/dL (8.4-10.5); GFR NON-AFRICAN AMERICAN > 60
--- NOTE | 2019-02-02 17:34 | CP.PCM.PN ---
Subjective - Date & Time of Evaluation Date of Evaluation: 02/02/19 Time of Evaluation: 11:40 - Subjective Subjective: Seen and examined at bedside chart reviewed. No acute overnight events reported, patient is awake, and alert. Tolerating oral intake. No N/V, c/o abdominal pain mostly on left side. Denies SOB or CP. Objective - Vital Signs/Intake and Output Vital Signs (last 24 hours): Temp Pulse Resp BP Pulse Ox 98.5 F 96 H 18 165/67 H 95 02/02/19 12:00 02/02/19 12:00 02/02/19 12:00 02/02/19 12:00 02/02/19 05:42 Intake and Output: 02/02/19 02/02/19 06:59 18:59 Intake Total 1200 Output Total 450 Balance 750 - Medications Medications: Current Medications Acetaminophen (Tylenol 325mg Tab) 650 mg PO Q4 PRN PRN Reason: Fever >100.4 F Albuterol/Ipratropium (Duoneb 3 Mg/0.5 Mg (3 Ml) Ud) 3 ml IH QIDRESP [facility] Last Admin: 02/02/19 11:37 Dose: 3 ml Clonidine HCl (Catapres) 0.1 mg PO Q6H PRN PRN Reason: Systolic Blood Pressure Furosemide (Lasix) 20 mg PO DAILY [facility] Last Admin: 02/02/19 11:21 Dose: 20 mg Hydralazine HCl (Apresoline) 50 mg PO QID [facility] Last Admin: 02/01/19 21:02 Dose: 50 mg Levetiracetam (Keppra) 500 mg PO BID [facility] Last Admin: 02/02/19 11:20 Dose: 500 mg Magnesium Oxide (Mag-Ox) 400 mg PO BID [facility] Last Admin: 02/02/19 11:20 Dose: 400 mg Metoprolol Tartrate (Lopressor) 50 mg PO BRKDIN [facility] Last Admin: 02/02/19 11:21 Dose: 50 mg Mirtazapine (Remeron) 30 mg PO HS [facility] Last Admin: 02/01/19 21:01 Dose: 30 mg Oxycodone HCl (Oxycodone Immediate Release Tab) 15 mg PO Q8H PRN PRN Reason: Pain, severe (8-10) Last Admin: 02/02/19 09:58 Dose: 15 mg Pantoprazole Sodium (Protonix Inj) 40 mg IVP Q12 [facility] Last Admin: 02/02/19 11:20 Dose: 40 mg Potassium Chloride (Klor-Con 10) 10 meq PO QD7 [facility] Last Admin: 02/02/19 11:20 Dose: 10 meq Trazodone HCl (Desyrel) 50 mg PO HS [facility] Last Admin: 02/01/19 21:02 Dose: 50 mg Valsartan (Diovan) 320 mg PO DAILY [facility] Last Admin: 02/02/19 11:21 Dose: 320 mg Vitamin B Complex/Vit C/Folic Acid (Nephro-Mundo) 1 tab PO 0800 [facility] Last Admin: 02/02/19 11:20 Dose: 1 tab Zolpidem Tartrate (Ambien) 5 mg PO HS PRN; Protocol PRN Reason: Sleep Last Admin: 01/31/19 22:25 Dose: 5 mg - Labs Labs: 02/01/19 09:10 02/01/19 09:10 PT 13.1 SECONDS (9.4-12.5) H 02/01/19 09:10 INR 1.16 02/01/19 09:10 APTT 30.7 Seconds (26.9-38.3) 01/27/19 14:37 - Constitutional Appears: No Acute Distress - Head Exam Head Exam: NORMOCEPHALIC - Eye Exam Eye Exam: Normal appearance. absent: Scleral icterus - ENT Exam ENT Exam: Mucous Membranes Moist - Neck Exam Neck Exam: Normal Inspection - Respiratory Exam Respiratory Exam: NORMAL BREATHING PATTERN. absent: Respiratory Distress - Cardiovascular Exam Cardiovascular Exam: +S1, +S2 - GI/Abdominal Exam GI & Abdominal Exam: Soft, Tenderness, Normal Bowel Sounds. absent: Guarding, Organomegaly, Rebound Additional comments: left side some tenderness - Extremities Exam Extremities Exam: absent: Calf Tenderness, Pedal Edema - Neurological Exam Neurological Exam: Alert, Awake, Oriented x3 - Skin Skin Exam: Dry, Warm Assessment and Plan - Assessment and Plan (Free Text) Assessment: Assessment: Anemia h/o Hepatitis C Atrial Fibrillation on Coumadin CVA with left sided paresis History of retroperitoneal bleed on coumadin, Sacral decubitus ulcer VRE UTI, indwelling sy catheter Seizure disorder Last EGD 09/2016 showed medium-sized hiatal hernia. Plan: monitor H/H and for overt GIB, currently stable, s/p 1 unit 4/17 continue PPI BID spoke to patient POA, daughter Paula Gamez regarding diagnostic EGD, agree for procedure, telephone consent obtained for procedure and anesthesia, risk and benifits explained, questions answered. Will plan for 02/03/19 in the afternoon. NPO after clear liquid breakfast. Seen and discussed w/ Dr. Galindo.
[2019-02-03 07:53] LABS: BASO # 0.01 K/mm3 (0.0-2.0); BASO % 0.3 % (0.0-3.0); EOS # 0.1 (0.0-0.7); EOS % 1.6 % (1.5-5.0); HEMOGLOBIN 9.5 g/dL (12.0-16.0); LYMPH % 26.7 % (22.0-35.0); MEAN CELL VOLUME 101.3 fl (80.0-105.0); MEAN CORPUSCULAR HEMOGLOBIN 31.6 pg (25.0-35.0); MEAN CORPUSCULAR HGB CONC 31.1 g/dl (31.0-37.0); MEAN PLATELET VOLUME 8.6 fl (7.0-11.0); MONO # 0.4 (0.1-0.6); MONO % 10.1 % (1.0-6.0); RBC 3.01 10^6/uL (3.5-6.1); RED CELL DISTRIBUTION WIDTH 17.2 % (11.5-14.5); WHITE BLOOD COUNT 3.8 10^3/uL (4.5-11.0)
[2019-02-03 08:04] LABS: ALBUMIN 3.6 g/dL (3.0-4.8); ALT/SGPT 44 U/L (7-56); AST/SGOT 82 U/L (14-36); BLOOD UREA NITROGEN 28 mg/dL (7-21); GFR NON-AFRICAN AMERICAN > 60
[2019-02-03] MEDS: Multivitamin Vitamin B Complex (Nephro-Vite) Tab PO SCH (08:05)
[2019-02-03] MEDS: oxyCODONE 15 mg Immediate Release Tab PO PRN ×2 (08:06→18:32)
[2019-02-03] MEDS: Potassium Chloride 10 mEq ER Tab PO SCH (08:06)
[2019-02-03] MEDS: Albuterol-Ipratrop 3 mg / 0.5 (3 ml) UD IH SCH ×4 (08:23→22:30)
--- NOTE | 2019-02-03 09:10 | CP.PCM.PN ---
Subjective - Date & Time of Evaluation Date of Evaluation: 02/03/19 Time of Evaluation: 06:00 - Subjective Subjective: Luis Alberto Simmons PGY2 Heme/Onc Progress note for Dr. Sanchez Patient seen and evaluated bedside in AM. No acute issues overnight. Patient will have EGD today. Objective - Vital Signs/Intake and Output Vital Signs (last 24 hours): Temp Pulse Resp BP Pulse Ox 98.1 F 67 18 132/79 95 02/03/19 06:00 02/03/19 08:06 02/03/19 06:00 02/03/19 08:06 02/03/19 06:00 Intake and Output: 02/03/19 02/03/19 06:59 18:59 Intake Total 960 Output Total 700 Balance 260 - Medications Medications: Current Medications Acetaminophen (Tylenol 325mg Tab) 650 mg PO Q4 PRN PRN Reason: Fever >100.4 F Albuterol/Ipratropium (Duoneb 3 Mg/0.5 Mg (3 Ml) Ud) 3 ml IH QIDRESP [facility] Last Admin: 02/03/19 08:23 Dose: 3 ml Clonidine HCl (Catapres) 0.1 mg PO Q6H PRN PRN Reason: Systolic Blood Pressure Furosemide (Lasix) 20 mg PO DAILY [facility] Last Admin: 02/02/19 11:21 Dose: 20 mg Hydralazine HCl (Apresoline) 100 mg PO TID [facility] Levetiracetam (Keppra) 500 mg PO BID [facility] Last Admin: 02/02/19 18:13 Dose: 500 mg Magnesium Oxide (Mag-Ox) 400 mg PO BID [facility] Last Admin: 02/02/19 18:13 Dose: 400 mg Metoprolol Tartrate (Lopressor) 50 mg PO BRKDIN [facility] Last Admin: 02/03/19 08:06 Dose: 50 mg Mirtazapine (Remeron) 30 mg PO HS [facility] Last Admin: 02/02/19 23:00 Dose: 30 mg Oxycodone HCl (Oxycodone Immediate Release Tab) 15 mg PO Q8H PRN PRN Reason: Pain, severe (8-10) Last Admin: 02/03/19 08:06 Dose: 15 mg Pantoprazole Sodium (Protonix Inj) 40 mg IVP Q12 [facility] Last Admin: 02/02/19 23:00 Dose: 40 mg Potassium Chloride (Klor-Con 10) 10 meq PO QD7 [facility] Last Admin: 02/03/19 08:06 Dose: 10 meq Trazodone HCl (Desyrel) 50 mg PO HS [facility] Last Admin: 02/02/19 23:00 Dose: 50 mg Valsartan (Diovan) 320 mg PO DAILY [facility] Last Admin: 02/02/19 11:21 Dose: 320 mg Vitamin B Complex/Vit C/Folic Acid (Nephro-Mundo) 1 tab PO 0800 [facility] Last Admin: 02/03/19 08:05 Dose: 1 tab Zolpidem Tartrate (Ambien) 5 mg PO HS PRN; Protocol PRN Reason: Sleep Last Admin: 01/31/19 22:25 Dose: 5 mg - Labs Labs: 02/03/19 05:00 02/03/19 05:00 PT 13.1 SECONDS (9.4-12.5) H 02/01/19 09:10 INR 1.16 02/01/19 09:10 APTT 30.7 Seconds (26.9-38.3) 01/27/19 14:37 - Constitutional Appears: No Acute Distress - Eye Exam Eye Exam: Normal appearance - ENT Exam ENT Exam: Mucous Membranes Moist - Respiratory Exam Respiratory Exam: Clear to Ausculation Bilateral, NORMAL BREATHING PATTERN Assessment and Plan - Assessment and Plan (Free Text) Plan: Anemia -Hgb 6.9 on admission -s/p 1 unit PRBC -repeat Hgb 9.5 -peripheral smear reviewed -Chest abd pelvis CT showed Mild fatty hepatic infiltration with a minimal central intrahepatic biliary ductal dilatation. Splenomegaly. Possible varices left upper quadrant of the abdomen. Slight wall thickening of the rectum; consider follow-up sigmoidoscopy to exclude infarct all wall lesion. -retic count, peripheral smear pending -EGD in afternoon today Echymosis -hold warfarin -likely due to mild trauma -B12 and folate within normal range -continue B complex UTI -ABx D/C as per ID due to current status
[2019-02-03] MEDS: levETIRAcetam 500 mg/5ml UD cups PO SCH ×2 (10:30→18:32)
[2019-02-03] MEDS: Magnesium Oxide 400 mg Tab UD PO SCH ×2 (10:31→18:32)
--- NOTE | 2019-02-03 16:00 | PN ---
DATE: 02/02/2019 SUBJECTIVE: The patient is comfortable, no respiratory distress. No chest pain. Blood pressure seems running high. Otherwise, she is stable. The patient is going for endoscopy in the morning. PHYSICAL EXAMINATION: VITAL SIGNS: Temperature is 97.8, heart rate is 96, blood pressure 165/67, respirations 18, saturating 95%. HEAD AND NECK: Normal. No JVD. No thyromegaly. CHEST: Clear bilateral. CARDIAC: First and second sounds normal. ABDOMEN: Tender in the epigastric area. Bowel sounds intact. EXTREMITIES: No edema. Bilateral heel cushions. NEUROLOGICAL: The patient has left hemiplegia. She is able to talk and respond. LABORATORY DATA: White count 4.4, hemoglobin 8.7, hematocrit 28.5, platelets 72. Chemistry: Sodium is 141, potassium 3.8, chloride 103, bicarb 31, BUN 28, creatinine 0.7. Liver enzymes are normal except an AST 105. The patient has procalcitonin done, was 0.07. The patient also had a venous Doppler of both lower extremities which was negative for DVT. IMPRESSION AND PLAN: This is a 78-year-old female, 1. She has acute drop in hemoglobin, came in with anemia status post transfusions. We will continue to monitor hemoglobin and hematocrit. Epigastric tenderness, will go for endoscopy in the morning. Discussed with her daughter and with gastrointestinal doctor, Dr. Galindo. 2. Hypertension. We are going to increase her hydralazine to 100 mg three times a day and continue the rest of her medications including Lopressor 50 b.i.d., Diovan 320 mg p.o. daily, hydralazine will be 100 t.i.d. Clonidine only p.r.n. 3. Possible gastritis. Continue Protonix intravenous and going for endoscopy tomorrow. 4. Cerebrovascular accident. 5. Chronic hepatitis C. 6. Low platelets. We will monitor the case. The patient should be on Coumadin, however, in presence of anemia, we will hold off on that and the patient is currently on sequential compression devices for deep venous thrombosis prophylaxis and we will continue to monitor her condition. 7. The patient has history of seizure disorder, continue Keppra 500 b.i.d. Continue magnesium, folic acid, oxycodone 15 every 8 hours for chronic back and joint pain. The patient seems comfortable, continue current therapy. Follow up clinically. Albin Forte MD
[2019-02-03] MEDS ORDERED: Propofol 10 mg/ml Inj (20 ML) ONE (16:15)
[2019-02-03] MEDS ORDERED: Etomidate 20 mg/10ml Inj IV ONE (16:21)
[2019-02-03] MEDS ORDERED: Sodium Chloride 0.9% 1,000 ML IV SCH (16:30)
[2019-02-03 16:55] VITALS: O2SAT 100
--- NOTE | 2019-02-03 23:33 | PN ---
DATE: 02/03/2019 SUBJECTIVE: The patient is seen in bed, in no acute distress, and nontoxic. OBJECTIVE: VITAL SIGNS: Temperature is 98, blood pressure is 150/60, respiratory rate is 12, and heart rate of 73. HEENT: Unremarkable. NECK: Supple. LUNGS: Have decreased breath sounds. HEART: Normal S1 and S2. ABDOMEN: Soft and nontender. LABORATORY EXAMINATION: Reveals a white count of 3.8, hemoglobin of 9, BUN of 28, and creatinine of 0.7. Procalcitonin is 0.7. Microbiology is noted. REVIEW OF ORDERS: Reveal the patient is off of antibiotics. ASSESSMENT AND PLAN: This is a 78-year-old, seen earlier today with complicated urinary tract infection, vancomycin-resistant enterococcus, extended-spectrum beta-lactamases Escherichia coli, history of Klebsiella sepsis with right lower lobe healthcare-associated pneumonia by history, decubitus ulcer, acute pancreatitis, rectus sheath hematoma and has completed antibiotic therapy, currently off of antibiotics, afebrile, and we will follow with you. Ricardo Burgos MD
--- NOTE | 2019-02-04 05:12 | PN ---
DATE: 02/03/2019 SUBJECTIVE: The patient is stable, comfortable. Going for endoscopy today. No distress. PHYSICAL EXAMINATION: As follows: VITAL SIGNS: Temperature is 98, heart rate 73, blood pressure 155/66, respirations 20, saturation 100% on 3 L nasal cannula. HEAD AND NECK: Normal. No JVD. No thyromegaly. CHEST: Clear bilaterally. CARDIAC: First sound and second sound normal. No murmur, rub, or gallop. ABDOMEN: Soft, nontender. EXTREMITIES: No edema. NEUROLOGICAL: Left hemiplegia. LABORATORY STUDY: Noted for platelet count 94. IMPRESSION AND PLAN: 1. Acute drop in hemoglobin, probably could be secondary to gastritis or intermittent gastrointestinal bleeding. The patient is status post transfusion. Her hemoglobin and hematocrit are stable. Last hemoglobin is 9.5 and hematocrit 30.5. 2. Hypertension, stable. Continue current medication. 3. Chronic hepatitis C, thrombocytopenia, anemia, left hemiplegia, chronic back pain, chronic osteoarthritis, seizure disorder, chronic obstructive pulmonary disease. PLAN: Continue current medication. Follow up clinically. The patient seems stable, going to endoscopy today. She is n.p.o. Continue current therapy. Albin Forte MD
[2019-02-04 07:29] LABS: BASO # 0.01 K/mm3 (0.0-2.0); BASO % 0.3 % (0.0-3.0); EOS % 1.4 % (1.5-5.0); HEMOGLOBIN 9.2 g/dL (12.0-16.0); LYMPH # 0.6 (1.2-3.4); MEAN CELL VOLUME 102.4 fl (80.0-105.0); MEAN CORPUSCULAR HEMOGLOBIN 31.5 pg (25.0-35.0); MEAN CORPUSCULAR HGB CONC 30.8 g/dl (31.0-37.0); MONO # 0.2 (0.1-0.6); MONO % 8.3 % (1.0-6.0); RBC 2.92 10^6/uL (3.5-6.1); RED CELL DISTRIBUTION WIDTH 16.9 % (11.5-14.5); WHITE BLOOD COUNT 2.9 10^3/uL (4.5-11.0)
--- NOTE | 2019-02-04 07:35 | PQF ---
PROVIDER RESPONSE TEXT: Iron deficiency REVIEWER QUERY TEXT: Anemia Type Physician?s Documentation Request This Form is Not a Permanent Document in the Medical Record Pt Name: ALYCE ENRIQUE MR #: [id number] Payor: MEDICARE PART A Unit/Bed: [id number]-270-01 Adm Date: 01/27/2019 7:41:00 PM Reviewer: Dianne Joaquin Ext. Query Date: 02/04/2019 6:34:21 AM Anemia Type [id number] By submitting this query, we are merely seeking further clarification of documentation to accurately reflect all conditions that you are monitoring, evaluating, treating or that extend the hospitalizati on or utilize additional resources of care. Please utilize your independent clinical judgment when ad dressing the question(s) below. Dear Doctor Albin Forte, The patient?s Clinical Indicators include: Patient admitted with anemia, transfused with PRBC. Taken for EGD and found to have esophageal and gastric varices and gastritis. Your 02/03 PN after the procedure states "acute drop in hgb probably secondary to gastritis or intermi ttent GI bleeding". Please specify if you are treating an acute blood loss anemia, cause. Anemia is documented in the Medical Record. Please specify the cause (includes suspected or probable cause) Such as: -- Due to acute blood loss -- Due to chronic blood loss -- Due to iron deficiency -- Due to postoperative blood loss -- Due to chronic disease -- Other, please specify PLEASE DOCUMENT ANY ADDITIONAL DIAGNOSES AND/OR SPECIFICITY IN THE PROGRESS NOTES AND/OR DISCHARGE [facility]ES MMARY. Clinically unable to determine/unknown Disagree with the above request Need to discuss Query created by: Dianne Joaquin on 02/04/2019 6:34 AM Electronically signed by: Albin Forte MD 02/04/2019 7:33 AM
[2019-02-04 07:52] LABS: ALBUMIN 3.4 g/dL (3.0-4.8); ALT/SGPT 40 U/L (7-56); AST/SGOT 59 U/L (14-36); BLOOD UREA NITROGEN 23 mg/dL (7-21); CALCIUM 8.6 mg/dL (8.4-10.5); GFR NON-AFRICAN AMERICAN > 60
[2019-02-04] MEDS: Albuterol-Ipratrop 3 mg / 0.5 (3 ml) UD IH SCH ×4 (08:59→16:35)
--- NOTE | 2019-02-04 09:13 | CP.PCM.PN ---
Subjective - Date & Time of Evaluation Date of Evaluation: 02/04/19 Time of Evaluation: 06:00 - Subjective Subjective: Luis Alberto Simmons PGY2 Heme/Onc Progress note for Dr. Sanchez Patient seen and evaluated bedside in AM. No acute issues overnight. Patient states she feels okay but has pain in her backside from the ulcer. Objective - Vital Signs/Intake and Output Vital Signs (last 24 hours): Temp Pulse Resp BP Pulse Ox 98.2 F 73 20 150/89 100 02/04/19 06:00 02/04/19 06:00 02/04/19 06:00 02/04/19 06:00 02/03/19 16:54 Intake and Output: 02/04/19 02/04/19 06:59 18:59 Intake Total 240 Output Total 400 Balance -160 - Medications Medications: Current Medications Acetaminophen (Tylenol 325mg Tab) 650 mg PO Q4 PRN PRN Reason: Fever >100.4 F Albuterol/Ipratropium (Duoneb 3 Mg/0.5 Mg (3 Ml) Ud) 3 ml IH QIDRESP [facility] Last Admin: 02/04/19 08:59 Dose: Not Given Clonidine HCl (Catapres) 0.1 mg PO Q6H PRN PRN Reason: Systolic Blood Pressure Furosemide (Lasix) 20 mg PO DAILY [facility] Last Admin: 02/03/19 10:31 Dose: 20 mg Hydralazine HCl (Apresoline) 100 mg PO TID [facility] Last Admin: 02/03/19 18:33 Dose: 100 mg Levetiracetam (Keppra) 500 mg PO BID [facility] Last Admin: 02/03/19 18:32 Dose: 500 mg Magnesium Oxide (Mag-Ox) 400 mg PO BID [facility] Last Admin: 02/03/19 18:32 Dose: 400 mg Metoprolol Tartrate (Lopressor) 50 mg PO BRKDIN [facility] Last Admin: 02/03/19 18:32 Dose: 50 mg Mirtazapine (Remeron) 30 mg PO HS [facility] Last Admin: 02/03/19 22:23 Dose: 30 mg Oxycodone HCl (Oxycodone Immediate Release Tab) 15 mg PO Q8H PRN PRN Reason: Pain, severe (8-10) Last Admin: 02/03/19 18:32 Dose: 15 mg Pantoprazole Sodium (Protonix Inj) 40 mg IVP Q12 [facility] Last Admin: 02/03/19 22:24 Dose: 40 mg Potassium Chloride (Klor-Con 10) 10 meq PO QD7 [facility] Last Admin: 02/03/19 08:06 Dose: 10 meq Trazodone HCl (Desyrel) 50 mg PO HS [facility] Last Admin: 02/03/19 22:23 Dose: 50 mg Valsartan (Diovan) 320 mg PO DAILY [facility] Last Admin: 02/03/19 10:31 Dose: 320 mg Vitamin B Complex/Vit C/Folic Acid (Nephro-Mundo) 1 tab PO 0800 [facility] Last Admin: 02/03/19 08:05 Dose: 1 tab Zolpidem Tartrate (Ambien) 5 mg PO HS PRN; Protocol PRN Reason: Sleep Last Admin: 01/31/19 22:25 Dose: 5 mg - Labs Labs: 02/04/19 06:55 02/04/19 06:55 PT 13.1 SECONDS (9.4-12.5) H 02/01/19 09:10 INR 1.16 02/01/19 09:10 APTT 30.7 Seconds (26.9-38.3) 01/27/19 14:37 - Constitutional Appears: No Acute Distress - Eye Exam Eye Exam: Normal appearance - GI/Abdominal Exam GI & Abdominal Exam: Soft, Normal Bowel Sounds - Neurological Exam Neurological Exam: Alert, Awake, Oriented x3 Assessment and Plan - Assessment and Plan (Free Text) Plan: Anemia -Hgb 6.9 on admission -s/p 1 unit PRBC -Hgb 9.2 -peripheral smear reviewed -Chest abd pelvis CT showed Mild fatty hepatic infiltration with a minimal central intrahepatic biliary ductal dilatation. Splenomegaly. Possible varices left upper quadrant of the abdomen. Slight wall thickening of the rectum; consider follow-up sigmoidoscopy to exclude infarct all wall lesion. -retic count, peripheral smear pending -EGD done yesterday did not show any bleeding Echymosis -hold warfarin -likely due to mild trauma -B12 and folate within normal range -continue B complex UTI -ABx D/C as per ID due to current status -ID following
[2019-02-04] MEDS: oxyCODONE 15 mg Immediate Release Tab PO PRN (09:45)
[2019-02-04] MEDS: levETIRAcetam 500 mg/5ml UD cups PO SCH ×2 (09:45→18:23)
[2019-02-04] MEDS: Magnesium Oxide 400 mg Tab UD PO SCH ×2 (09:46→18:23)
[2019-02-04] MEDS: Multivitamin Vitamin B Complex (Nephro-Vite) Tab PO SCH (09:46)
[2019-02-04] MEDS: Potassium Chloride 10 mEq ER Tab PO SCH (09:48)
[2019-02-04 12:13] VITALS: RESP 18; TEMP 97.4
--- NOTE | 2019-02-04 13:33 | CP.PCM.PCO ---
Physician Communication Note - Physician Communication Note Physician Communication Note: per discussion with IDT, pt for dc home
[2019-02-04 18:24] VITALS: BP 143/64; PULSE 66
--- NOTE | 2019-02-04 21:16 | PN ---
DATE: 02/04/2019 SUBJECTIVE: The patient is in bed, in no acute distress, nontoxic, however, appearing chronically ill and debilitated. PHYSICAL EXAMINATION: VITAL SIGNS: With a temperature of 97, blood pressure is 140/70, respiratory rate of 18. HEENT: Unremarkable. NECK: Supple. LUNGS: Have decreased breath sounds. HEART: Normal S1 and S2. ABDOMEN: Soft. LABORATORY EXAMINATION: Reveals a white count of 2.9, hemoglobin of 9. Chemistry reveals a BUN of 23, creatinine 0.7. Review of orders reveals the patient is off of antibiotics. ASSESSMENT AND PLAN: This is a 78-year-old female who was seen earlier today in 270, bed 1 with complicated urinary tract infection, vancomycin-resistant enterococcus, extended-spectrum beta-lactamase Escherichia coli, history of Klebsiella sepsis, right lower lobe healthcare-associated pneumonia by history, decubitus ulcer, acute pancreatitis, rectus sheath hematoma. Currently off of antibiotics and afebrile. We will follow with you. The patient is at risk for developing nosocomial infections. Ricardo Burgos MD
--- NOTE | 2019-02-05 10:22 | DS ---
CHIEF COMPLAINT: The patient was admitted initially with low hemoglobin of 6. She was transfused and hemoglobin went up and is being stable. The patient was seen on the day of discharge. PHYSICAL EXAMINATION VITAL SIGNS: Temperature 97.4, heart rate 83, blood pressure 129/53, respirations 18. HEAD AND NECK: Normal. No JVD. No thyromegaly. CHEST: Clear bilaterally. CARDIAC: First sound and second sound normal. ABDOMEN: Soft. There is mild tender epigastric area. EXTREMITIES: Lower extremities, no edema. NEUROLOGIC: Left hemiplegia. LABORATORY DATA: White count 2.9, hemoglobin 9.2, hematocrit 29.9, platelets 62. Chemistry: Sodium 142, potassium 4.1, chloride 105, bicarb 31, BUN 23, creatinine is 0.7. Blood sugar is stable in 126 to 90. Liver function test has some elevation of AST 59, normal ALT, normal alk phos. HOSPITAL COURSE: The patient was given blood transfusion and IV Protonix. Blood pressure has been monitored and controlled. The patient also had a CT abdomen and pelvis, there was no acute bleed, no retroperitoneal bleed. Seen by GI consult Dr. Galindo and had upper endoscopy which shows esophageal and gastric varices, no active bleeding. The patient also has been off Coumadin because of risk of bleeding. At this time, the patient has been stable and will be discharged home to be followed as outpatient with home visits. DISCHARGE DIAGNOSES 1. Severe anemia, status post multiple units of blood transfusions. 2. Esophageal and gastric varices. 3. Gastritis. 4. Thrombocytopenia. 5. Chronic hepatitis C. 6. Hypertension, difficult control. 7. Left cerebrovascular accident. 8. The patient has chronic osteoarthritis, chronic back pain, chronic left hip pain with dislocation. 9. The patient has stage II sacral decubitus. Continue local wound care. Seen by nursing. 10. Anemia, stable. PLAN: To resume all her medications except Coumadin. Followup as outpatient. Albin Forte MD
== END 2019-02-04 19:59 | disposition home health service (06) | DRG 812 ==
LOC: ED 13:49 → ERH 19:41 → 2RSO 23:00
PROVIDERS: ADMIT Internal Medicine; ATTEND Internal Medicine
PROC: 30233N1 Transfusion of Nonautologous Red Blood Cells into Peripheral Vein, Percutaneous Approach (ICD-10-PCS; 2019-01-27)
PROC: 0DJ08ZZ Inspection of Upper Intestinal Tract, Via Natural or Artificial Opening Endoscopic (ICD-10-PCS; principal; 2019-02-03 16:00)
DX: D50.0 Iron deficiency anemia secondary to blood loss (chronic) (principal); N39.0 Urinary tract infection, site not specified; J98.11 Atelectasis; G81.04 Flaccid hemiplegia affecting left nondominant side; J90 Pleural effusion, not elsewhere classified; I85.00 Esophageal varices without bleeding; K29.50 Unspecified chronic gastritis without bleeding; Z74.01 Bed confinement status; L89.152 Pressure ulcer of sacral region, stage 2; S40.022A Contusion of left upper arm, initial encounter; I11.9 Hypertensive heart disease without heart failure; G40.909 Epilepsy, unspecified, not intractable, without status epilepticus; M47.814 Spondylosis without myelopathy or radiculopathy, thoracic region; I71.4 Abdominal aortic aneurysm, without rupture; M47.816 Spondylosis without myelopathy or radiculopathy, lumbar region; R79.1 Abnormal coagulation profile; I48.2 Chronic atrial fibrillation; D69.6 Thrombocytopenia, unspecified; B18.2 Chronic viral hepatitis C; Z79.01 Long term (current) use of anticoagulants; K74.60 Unspecified cirrhosis of liver; S20.219A Contusion of unspecified front wall of thorax, initial encounter; B95.62 Methicillin resistant Staphylococcus aureus infection as the cause of diseases classified elsewhere; G89.4 Chronic pain syndrome; B96.20 Unspecified Escherichia coli [E. coli] as the cause of diseases classified elsewhere; K44.9 Diaphragmatic hernia without obstruction or gangrene; Z16.12 Extended spectrum beta lactamase (ESBL) resistance